=== PATIENT | male | born 1980 | race Caucasian/White ===

== ENCOUNTER → 2016-03-26 | Outpatient (CLI) | payer MEDICARE, MEDICAID ==
[~2016-03-26] MED LIST: /LABE20TA OR; /PANT40TA OR; /RANI15TA PO; ACET500C PO; ACET50TA PO; ACET650T12 PO; ACET65TA OR; AMBI10TA PO; AMBI12.52 PO; AMLO10TA2 PO; AMLO5TAB OR; ARANESP; ASPI1TAB5 PO; ASPI81TA4 PO; ASPI81TA83 OR; AUGM875T27 PO; B6 N1TAB PO; BACT400T PO; BENT20TA OR; CALC0.25 PO; CELL250C PO; CELLCEPT; CEPH2CAP PO; CLON0.3T TD; CLON0.5T PO; CLON3PA TOP; COLA50CA3 PO; D200CAP3 PO; DARB300VL SC; DEMA100T OR; DILA2TAB PO; DILA4TAB PO; DILA8TAB4 PO; DOC-8.6T PO; DOCQ100C PO; DOCU100C PO; DOCU10CA PO; DOCU10ELUD PO; DOXY75CA3 PO; DULO20CA OR; EPOG1000 SQ; ERGO5000 PO; FE T325T PO; FERR220E3 PO; FERR325T3 PO; FERR83TA2 PO; FISH100049 PO; FOLI1TAB OR; FOSR1000 PO; FURO10EL PO; FURO40TA2 PO; GABA-279 PO; GABA300C2 PO; HYDR25T PO; IRON325T3 IV; KEPP250T PO; KEPPRA PO; LABE20TAB PO; LABE300T PO; LASI80TA OR; LOPR50TA OR; MAGN500T2 OR; METALAZONE PO; METH10TA2 PO; METH5TAB2 PO; MIRA3350 PO; MYCO500T PO; Metamucil; NEUR300C OR; NEUR600T PO; NORT10CA2 PO; OXYC1SOL PO; OXYC30TA4 PO; OXYC30TA84 PO; OXYCO5TA PO; PEPT262T2 PO; PERC5TAB8 OR; PRED10TA2 OR; PRED20TA PO; PRED5TA PO; PROG1CAP2 OR; PROT1TAB2 PO; PROTPAK PO; RANI150C OR; RENA800T OR; RENV2.4P PO; RENVELA PO; SENS30TA PO; SEVE80TAB PO; SILD50TA PO; TACR1CAP3 PO; TACR5CAP4 PO; TRAM50TA2 OR; TUMS500C OR; TYLE325T5 PO; VALC450T PO; VANC1INJ IP; VIAG100T PO; VIBR100C PO; VICO5TAB OR; VIT D 2000 PO; VITA100037 PO; VITA200015 PO; VITA500047 PO; VITATAB11 PO; XANA0.5T PO; ZANT150T OR; ZANT150T PO; ZANTTAB PO; ZOFR4TAB3 PO; ZOLP-187 PO; [UNRECOGNIZED DRUG - CODE] EX; [UNRECOGNIZED DRUG - CODE] IP; [UNRECOGNIZED DRUG - CODE] IV; [UNRECOGNIZED DRUG - CODE] OR; [UNRECOGNIZED DRUG - CODE] PO; [UNRECOGNIZED DRUG - OTHER]; ambien PO; tizanidine PO; viagra
--- NOTE | 2016-04-12 01:03 | ECWPNPC ---
PATIENT NAME: LILY DENNIS : 1980 GENDER: MALE VISIT DATE: 03/26/2016 DISCHARGE DATE: 03/26/16 1227 VISIT LOCKED DATE TIME: PHYSICIAN: RICK ODELL PHYSICIAN PAGER NO: [phone] RESOURCE: RICK ODELL HISTORY OF PRESENT ILLNESS HISTORY OF PRESENT ILLNESS: PAIN THE PATIENT DESCRIBES THE PAIN... FALL RISK SCREENING: SCREENING :NO FALLS IN THE PAST YEAR TODAY'S VISIT: NOTES: RATES PAIN TODAY 6/10. NOTES PAIN IS PRESENT IN BOTH LEGS AND IN BACK WITH RADIATION TO BUTTUCKS AND LEGS. SAW RECENT TRANSPLANT TEAM IN [place]. HAS HAD 2 RECENT FALLS. NO INJURIES. FEET GO NUMB EASILY. REPORTS NO TROUBLE WITH MEDS AND THEY ARE WORKING WELL. IS HAVING ISSUES WITH CONSTIPATION. HAS SOME ISSUES WITH INITIATING URINATION. . CURRENT MEDICATIONS TAKING TACROLIMUS 1 MG CAPSULE DIRECTED ORALLY 3 MGS AM AND 3 MGS PM TAKING PROTONIX 40 MG TABLET DELAYED RELEASE 1 TABLET ORALLY ONCE A DAY TAKING MAY HAVE `` `` ` DIAGNOSIS CODE 729.5 LEFT ANKLE PAIN LEFT ANKLE-BAYRON BRACE TAKING LABETALOL HCL 200 MG TABLET 1 TAB ORALLY TWICE A DAY TAKING FISH OIL 1000 MG CAPSULE 2 CAPS ORALLY TWICE DAILY TAKING VITAMIN B-6 100 MG TABLET 1 TABLET ORALLY TWICE DAILY TAKING CHOLECALCIFEROL 2000 UNIT TABLET 1 TABLET ORALLY DAILY TAKING CELLCEPT 500 MG TABLET 2 CAPSULE ORALLY TWICE A DAY TAKING PREDNISONE 5 MG TABLET 1 TABLET DAILY TAKING MIRALAX _ POWDER 1 CAPFUL ORALLY M W F NEEDED TAKING VIAGRA 100 MG TABLET TAKE 1/2 -1 TABLET BY MOUTH NEEDED TAKING FLONASE 50 MCG/ACT SUSPENSION 1 SPRAY IN EACH NOSTRIL NASALLY ONCE A DAY TAKING COLACE 100 MG CAPSULE 2 CAP ORALLY TWICE A DAY TAKING METHADONE HCL 10 MG TABLET 5 TABS ORALLY Q 8 HRS MDD=15 CHRONIC PAIN TAKING XANAX 0.5 MG TABLET 1 TABLET ORALLY TID PRN/MDD # 3 TAKING HYDROMORPHONE HCL 8 MG TABLET 1 TABLET NEEDED ORALLY Q 8 HRS PRN PAIN MDD=3 NOT-TAKING VALIUM 10 MG TABLET 1 ORALLY 1 TAB PRE PROC. MDD1 NOT-TAKING METHADONE HCL 10 MG TABLET 5 TABLETS ORALLY Q 8 HOURS MDD=15 CHRONIC PAIN NOT-TAKING METHADONE HCL 10 MG TABLET 5 TABLET ORALLY Q 8 HRS CHRONIC PAIN MDD=15 NOT-TAKING BACTRIM 400-80 MG TABLET 2 TABLETS ORALLY Saturday MEDICATION LIST REVIEWED AND RECONCILED WITH THE PATIENT PAST MEDICAL HISTORY RENAL TRANSPLANT [place]2004--REJECTED 2011; LIVE DONOR KIDNEY TRANSPLANT [facility] 04/03 HTN--SEVERE ANEMIA OF CHRONIC DISEASE CHRONIC LOW BACK PAIN BORDERLINE B12 DEFICIENCY C DIFF COLITIS--ADMITTED [facility] 04/28 CAMPYLOBACTER ENTERITIS, ADMITTED [facility] 10/30 BILAT PNEUMONIA WITH E COLI BACTEREMIA, ADMITTED [facility] 11/29 ESRD -- DR FERNANDEZ NEUROPATHIC PAIN LEGS---[facility]; NCS NEURO 11/01 SEVERE SENSORY/MOTOR POLYNEUROPATHY ECHO 12/30--EF 65%,LAE 49 MM, MILD AR/MR/PULM HTN ? 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 NEW PATIENT PAIN DIARY TODAY'S VISITNOTES FROM 0-10, WHAT LEVEL IS YOUR PAIN TODAY?0 PAIN CLINIC PFS, CLERGY, PUBLIC HEALTH REFERRALS PFS REFERRAL NEEDED?NO CLERGY REFERRAL NEEDED?NO PUBLIC HEALTH REFERRAL NEEDED?NO WAS THE PROVIDER NOTIFIED OF ANY PERTINENT INFO?NO PFS REFERRAL NEEDED?NO CLERGY REFERRAL NEEDED?NO PUBLIC HEALTH REFERRAL NEEDED?NO WAS THE PROVIDER NOTIFIED OF ANY PERTINENT INFO?NO REVIEW OF SYSTEMS CONSTITUTIONAL: ANY CHANGE IN YOUR MEDICAL CONDITION? NO . CHILLS NO . FEVER NO . INFECTION: DO YOU HAVE NEW INFECTIONS? NO . DO YOU HAVE HISTORY OF MRSA? NO . MUSCULOSKELETAL: ANY NEW PATTERNS OF PAIN OR NUMBNESS? NO . GASTROENTEROLOGY: ANY NEW CHANGE IN BOWEL CONTROL? NO . GENITOURINARY: ANY NEW CHANGE IN BLADDER CONTROL? NO . IS THERE A CHANCE YOU COULD BE ? NO . HEMATOLOGY/LYMPH: DO YOU TAKE ANY BLOOD THINNERS? (FOR EXAMPLE- COUMADIN, PLAVIX, AGGRENOX, PLATEL, PRADAXA, OR XARELTO) NO . WHEN WAS YOUR LAST DOSE? DATE: TIME: . NEUROLOGY: HAVE YOU FALLEN IN THE PAST 6 MONTHS? NO . ANY NEW EXTREMITY NUMBNESS OR WEAKNESS? NO . CARDIOLOGY: DO YOU HAVE A PACEMAKER OR DEFIBRILLATOR? NO . RESPIRATORY: HAVE YOU BEEN SICK IN THE PAST WEEK? NO . FEVER NO . FLU LIKE SYMPTOMS? NO . COUGH NO . INTEGUMENTARY: DO YOU HAVE ANY RASHES OR OPEN SORES? NO . ALLERGIC/IMMUNO: ARE YOU ALLERGIC TO SHELLFISH OR IV DYE? NO . ANY NEW ALLERGIES? NO . PSYCHIATRIC: DO YOU HAVE THOUGHTS OF HURTING YOURSELF OR SOMEONE ELSE? NO . ARE YOU ABUSED, NEGLECTED, OR IN AN UNSAFE ENVIRONMENT? NO . ENDOCRINOLOGY: ARE YOU DIABETIC? NO . OTHER: DO YOU NEED ANY PRESCRIPTIONS? NO . IF YES, PLEASE LIST: ____ . ANY NEW PROBLEMS WITH YOUR MEDICATIONS? NO . WHEN DID YOU LAST EAT? ____ . WHEN DID YOU LAST DRINK? ____ . WHAT DID YOU LAST DRINK? ____ . NAME OF PERSON DRIVING YOU HOME? ____ . DO YOU HAVE ANY OTHER QUESTIONS OR CONCERNS NO . REVIEWED BY: PROVIDER: RICK PADRON . VITAL SIGNS WT 215 LBS, HT 72 IN, BMI 29.16 INDEX, BP 151/86 MM HG, HR 82 /MIN, RR 16 /MIN, TEMP 96.0 F, OXYGEN SAT % 96, NA INITIALS TL 1144. EXAMINATION GENERAL EXAMINATION: PSYCHALERT , ORIENTED X 3 , APPROPRIATE MOOD AND AFFECT . LUNGS:CLEAR TO AUSCULTATION BILATERALLY. HEART:HEART RATE REGULAR. MUSCULOSKELETAL:MUSCLE STRENGTH TESTING 5/5 BILATERAL LOWER EXTREMITIES. MARKED DECREASE IN SENSATION IN LOWER EXTREMITIES TO LEVEL OF MID CALF. GAIT STEPPING IN NATURE. ASSESSMENTS NEUROPATHY INVOLVING BOTH LOWER EXTREMITIES - G57.91 (PRIMARY) CHRONICALLY ON OPIATE THERAPY - Z79.891 TREATMENT NEUROPATHY INVOLVING BOTH LOWER EXTREMITIES CLINICAL NOTES: ISTOP REGISTRY REVIEWED AND DEMNOSTRATES COMPLLIANCE. BRINGS IN MEDICATIONS WHICH IS APPROPRIATE FOR WHAT WAS DISPENSED. RECENT URINE TOXICOLOGY REVIEWED. NO UNAUTHORIZED MEDICATIONS. NO ILLICIT SUBSTANCES AND PRESCRIBED MEDICATIONS WERE PRESENT. LATE NOTE: ARRANGEMENTS WERE MADE FOR LILY TO COME IN THE FOLLOWING DAY TO DO WITH URINE TOXICOLOGY FIRST THING IN THE MORNING. NOT COME IN. OTHERS NOTES: EKG FOR MED MANAGEMNT EVALUTOX IN AM. KEEP MEDS SECURE.CALL WHEN SCRIPTS DUE. PROCEDURE CODES FA211 ESTABILISHED PATIENT [facility] FACILITY CHARGE G5482 PAIN ASSESS POS TOOL F/U PLAN DOC G8427 DOC MEDS VERIFIED W/PT OR RE DISPOSITION & COMMUNICATION FOLLOW UP 2 MONTHS ELECTRONICALLY SIGNED BY CARMEN AGUIRRE ON 04/11/2016 AT 12:54 PM EST DISCLAIMER : THIS IS A VISIT SUMMARY EXTRACTED FROM THE [email or web address] CHART. IT IS NOT A COPY OF THE [email or web address] PROGRESS NOTE. SHANNAN
== END ==
LOC: M PAIN 11:20
PROVIDERS: ATTEND Nurse Practitioner Family
DX: G57.91 Unspecified mononeuropathy of right lower limb (principal); M54.5 Low back pain; G89.29 Other chronic pain; Z79.891 Long term (current) use of opiate analgesic; Z79.899 Other long term (current) drug therapy; K59.00 Constipation, unspecified; R39.11 Hesitancy of micturition; I12.0 Hypertensive chronic kidney disease with stage 5 chronic kidney disease or end stage renal disease; D63.8 Anemia in other chronic diseases classified elsewhere; N18.6 End stage renal disease; Z86.59 Personal history of other mental and behavioral disorders; Z94.0 Kidney transplant status; Z88.1 Allergy status to other antibiotic agents

== ENCOUNTER → 2016-06-13 | Outpatient (CLI) | payer MEDICARE, MEDICAID ==
--- NOTE | 2016-07-03 00:39 | ECWPNPC ---
PATIENT NAME: LILY DENNIS : 1980 GENDER: MALE VISIT DATE: 06/13/2016 DISCHARGE DATE: 06/13/16 1055 VISIT LOCKED DATE TIME: PHYSICIAN: RICK ODELL PHYSICIAN PAGER NO: [phone] RESOURCE: RICK ODELL HISTORY OF PRESENT ILLNESS HISTORY OF PRESENT ILLNESS: PAIN THE PATIENT DESCRIBES THE PAIN... FALL RISK SCREENING: SCREENING :NO FALLS IN THE PAST YEAR TODAY'S VISIT: NOTES: RATES PAIN TODAY 6/10. DESCRIBES PAIN CONSTANT, ACHING, BURNING, SHARP AND STABBING, . IS NOTING NEW AREA OF PAIN IN BACK RIGHT BUTTUCKS, AND INTO RIGHT LEG. NOTES INCREASE IN BURNING INTO LEGS. THIS HAS STARTED ABOUT 1 WEEK AGO. NOTES THAT FEET AND MOSTLY HEALS ARE ON FIRE, PARTICULARLY AT NITE. . DID NOT RETURN FOR URINE REQUESTED AT LAST VISIT.. CURRENT MEDICATIONS TAKING TACROLIMUS 1 MG CAPSULE DIRECTED ORALLY 3 MGS AM AND 3 MGS PM TAKING PROTONIX 40 MG TABLET DELAYED RELEASE 1 TABLET ORALLY ONCE A DAY TAKING MAY HAVE `` `` ` DIAGNOSIS CODE 729.5 LEFT ANKLE PAIN LEFT ANKLE-BAYRON BRACE TAKING LABETALOL HCL 200 MG TABLET 1 TAB ORALLY TWICE A DAY TAKING FISH OIL 1000 MG CAPSULE 2 CAPS ORALLY TWICE DAILY TAKING VITAMIN B-6 100 MG TABLET 1 TABLET ORALLY TWICE DAILY TAKING CHOLECALCIFEROL 2000 UNIT TABLET 1 TABLET ORALLY DAILY TAKING CELLCEPT 500 MG TABLET 2 CAPSULE ORALLY TWICE A DAY TAKING PREDNISONE 5 MG TABLET 1 TABLET DAILY TAKING MIRALAX _ POWDER 1 CAPFUL ORALLY NEEDED TAKING VIAGRA 100 MG TABLET TAKE 1/2 -1 TABLET BY MOUTH NEEDED TAKING FLONASE 50 MCG/ACT SUSPENSION 1 SPRAY IN EACH NOSTRIL NASALLY ONCE A DAY TAKING COLACE 100 MG CAPSULE 2 CAP ORALLY TWICE A DAY TAKING XANAX 0.5 MG TABLET 1 TABLET ORALLY TID PRN/MDD # 3 TAKING METHADONE HCL 10 MG TABLET 5 TABS ORALLY Q 8 HRS MDD=15 CHRONIC PAIN TAKING HYDROMORPHONE HCL 8 MG TABLET 1 TABLET NEEDED ORALLY Q 8 HRS PRN PAIN MDD=3 NOT-TAKING BUSPIRONE HCL 5 MG TABLET 1 TABLET ORALLY THREE TIMES A DAY NEEDED MEDICATION LIST REVIEWED AND RECONCILED WITH THE PATIENT PAST MEDICAL HISTORY RENAL TRANSPLANT [place] 2004--REJECTED 2011; LIVE DONOR KIDNEY TRANSPLANT [facility] 04/03 HTN--SEVERE ANEMIA OF CHRONIC DISEASE CHRONIC LOW BACK PAIN BORDERLINE B12 DEFICIENCY C DIFF COLITIS--ADMITTED [facility] 04/28 CAMPYLOBACTER ENTERITIS, ADMITTED [facility] 10/30 BILAT PNEUMONIA WITH E COLI BACTEREMIA, ADMITTED [facility] 11/29 ESRD -- DR FERNANDEZ NEUROPATHIC PAIN LEGS---[facility]; NCS NEURO 11/01 SEVERE SENSORY/MOTOR POLYNEUROPATHY ECHO 12/30--EF 65%,LAE 49 MM, MILD AR/MR/PULM HTN ? 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 REVIEW OF SYSTEMS CONSTITUTIONAL: ANY CHANGE IN YOUR MEDICAL CONDITION? NO . CHILLS NO . FEVER NO . INFECTION: DO YOU HAVE NEW INFECTIONS? NO . DO YOU HAVE HISTORY OF MRSA? NO . MUSCULOSKELETAL: ANY NEW PATTERNS OF PAIN OR NUMBNESS? YES, NEW PAIN IN RIGHT BACK, INTO BUTTUCKS, AND DOWN INTO UPPER THIGH. FEET ARE WORSE, BURNING. . GASTROENTEROLOGY: ANY NEW CHANGE IN BOWEL CONTROL? NO . GENITOURINARY: ANY NEW CHANGE IN BLADDER CONTROL? NO . IS THERE A CHANCE YOU COULD BE ? NO . HEMATOLOGY/LYMPH: DO YOU TAKE ANY BLOOD THINNERS? (FOR EXAMPLE- COUMADIN, PLAVIX, AGGRENOX, PLATEL, PRADAXA, OR XARELTO) NO . WHEN WAS YOUR LAST DOSE? DATE: TIME: . NEUROLOGY: HAVE YOU FALLEN IN THE PAST 6 MONTHS? YES . ANY NEW EXTREMITY NUMBNESS OR WEAKNESS? NO . CARDIOLOGY: DO YOU HAVE A PACEMAKER OR DEFIBRILLATOR? NO . RESPIRATORY: HAVE YOU BEEN SICK IN THE PAST WEEK? NO . FEVER NO . FLU LIKE SYMPTOMS? NO . COUGH NO . INTEGUMENTARY: DO YOU HAVE ANY RASHES OR OPEN SORES? NO . ALLERGIC/IMMUNO: ARE YOU ALLERGIC TO SHELLFISH OR IV DYE? NO . ANY NEW ALLERGIES? NO . PSYCHIATRIC: DO YOU HAVE THOUGHTS OF HURTING YOURSELF OR SOMEONE ELSE? NO . ARE YOU ABUSED, NEGLECTED, OR IN AN UNSAFE ENVIRONMENT? NO . ENDOCRINOLOGY: ARE YOU DIABETIC? NO . OTHER: DO YOU NEED ANY PRESCRIPTIONS? NO . IF YES, PLEASE LIST: ____ . ANY NEW PROBLEMS WITH YOUR MEDICATIONS? NO . WHEN DID YOU LAST EAT? ____ . WHEN DID YOU LAST DRINK? ____ . WHAT DID YOU LAST DRINK? ____ . NAME OF PERSON DRIVING YOU HOME? ____ . DO YOU HAVE ANY OTHER QUESTIONS OR CONCERNS NO . REVIEWED BY: PROVIDER: RICK PADRON . VITAL SIGNS WT 228.8 LBS, HT 72 IN, BMI 31.03 INDEX, BP 147/85 MM HG, HR 69 /MIN, RR 18 /MIN, TEMP 96.8 F, OXYGEN SAT % 97%, NA INITIALS SC 10:05, REVIEWED BY: CM. EXAMINATION GENERAL EXAMINATION: PSYCHALERT , ORIENTED X 3 , APPROPRIATE MOOD AND AFFECT . LUNGS:CLEAR TO AUSCULTATION BILATERALLY. HEART:HEART RATE REGULAR. MUSCULOSKELETAL:MUSCLE STRENGTH TESTING 5/5 BILATERAL LOWER EXTREMITIES. MARKED DECREASE IN SENSATION IN LOWER EXTREMITIES TO LEVEL OF MID CALF. GAIT STEPPING IN NATURE. POINT TENDERNESS OVER LOW BACK, BUTTUCK. POSITVE MAYELIN SIGN. . 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 PIRIFORMIS STRETCHES. ICE TO LOW BACK AND BUTTUCK AREA. HOMEWORK - PIRIFORMIS SYNDROME. ADD B-COMPLEX VITAMIN DAILY. , #128 - SCREENING BMI AND F/U PLAN IN : BMI ABOVE NORMAL TODAY. DISCUSSED WITH PATIENT NUTRITIONAL FOOD CHOICES TO ASSIST WITH WEIGHT LOSS. RECCOMMENDED REDUCING SALT, SUGAR, SODA INTAKE. RECOMMEND INCREASE ACTIVITY TO INCLUDE WALKING ON A REGULAR BASIS. CURRENTLY FOLLOWS CLOSELY WITH [facility] TRANSPLANT TEAM WHO DOES MONITOR HIS WEIGHT. , FALLS CARE PLAN: 1. RECOMMEND REMOVING ALL THROW RUGS. 2. RECOMMEND NIGHT LIGHTS 3. RECOMMEND WEARING RUBBER SOLED SHOES AND TO NOT GO BAREFOOT. 5. ADVISED TO USE ASSISTIVE DEVICE SUCH CANE WHEN NEEDED. CLINICAL NOTES: ISTOP REGISTRY REVIEWED AND DEMNOSTRATES COMPLLIANCE. BRINGS IN MEDICATIONS WHICH IS APPROPRIATE FOR WHAT WAS DISPENSED. RECENT URINE TOXICOLOGY REVIEWED. NO UNAUTHORIZED MEDICATIONS. NO ILLICIT SUBSTANCES AND PRESCRIBED MEDICATIONS WERE PRESENT. PROCEDURE CODES FA211 ESTABILISHED PATIENT [facility] FACILITY CHARGE G8783 BP SCR PRFRM RCMDD DEFIND SCR INTVL G8730 PAIN ASSESS POS TOOL F/U PLAN DOC 3016F PT SCRND UNHLTHY [place] USE 1124F ACP DISCUSS-NO DSCNMKR DOCD 1036F TOBACCO NON-USER 0518F FALL PLAN OF CARE DOCD G8427 DOC MEDS VERIFIED W/PT OR RE G8417 BMI >=30 CALCUATE W/FOLLOWUP 3288F FALL RISK ASSESSMENT DOCD DISPOSITION & COMMUNICATION FOLLOW UP 7 WEEKS ELECTRONICALLY SIGNED BY CARMEN AGUIRRE ON 07/02/2016 AT 10:06 AM EDT DISCLAIMER : THIS IS A VISIT SUMMARY EXTRACTED FROM THE [employer] CHART. IT IS NOT A COPY OF THE [employer] PROGRESS NOTE. MTDD
== END ==
LOC: M PAIN 09:20
PROVIDERS: ATTEND Nurse Practitioner Family
DX: G57.91 Unspecified mononeuropathy of right lower limb (principal); M54.31 Sciatica, right side; G89.29 Other chronic pain; D63.1 Anemia in chronic kidney disease; N18.5 Chronic kidney disease, stage 5; I12.0 Hypertensive chronic kidney disease with stage 5 chronic kidney disease or end stage renal disease; F06.4 Anxiety disorder due to known physiological condition; E55.9 Vitamin D deficiency, unspecified; Z48.22 Encounter for aftercare following kidney transplant; Z94.0 Kidney transplant status; Z79.891 Long term (current) use of opiate analgesic; Z79.899 Other long term (current) drug therapy; Z88.1 Allergy status to other antibiotic agents

== ENCOUNTER → 2016-08-24 | Outpatient (CLI) | payer MEDICAID, MEDICARE, SELFPAY ==
[~2016-08-24] MED LIST changes: +CLON-412 PO; +CLONI1TA PO; -DILA8TAB4 PO; +DILA8TAB5 PO; -DOCU100C PO; +DOCU100C16 PO; +DOLO10TA PO; +HYDR-3363 PO; -HYDR25T PO
--- NOTE | 2016-08-24 23:33 | ECWPNPC ---
PATIENT NAME: LILY DENNIS : 1980 GENDER: MALE VISIT DATE: 08/24/2016 DISCHARGE DATE: 08/24/16 0000 VISIT LOCKED DATE TIME: PHYSICIAN: RICK ODELL PHYSICIAN PAGER NO: [phone] RESOURCE: RICK ODELL REASON FOR APPOINTMENT 1. MEDS HISTORY OF PRESENT ILLNESS HISTORY OF PRESENT ILLNESS: PAIN THE PATIENT DESCRIBES THE PAIN... FALL RISK SCREENING: SCREENING :NO FALLS IN THE PAST YEAR CURRENT MEDICATIONS TAKING TACROLIMUS 1 MG CAPSULE DIRECTED ORALLY 3 MGS AM AND 3 MGS PM TAKING PROTONIX 40 MG TABLET DELAYED RELEASE 1 TABLET ORALLY ONCE A DAY TAKING MAY HAVE `` `` ` DIAGNOSIS CODE 729.5 LEFT ANKLE PAIN LEFT ANKLE-BAYRON BRACE TAKING LABETALOL HCL 200 MG TABLET 1 TAB ORALLY TWICE A DAY TAKING FISH OIL 1000 MG CAPSULE 2 CAPS ORALLY TWICE DAILY TAKING VITAMIN B-6 100 MG TABLET 1 TABLET ORALLY TWICE DAILY TAKING CHOLECALCIFEROL 2000 UNIT TABLET 1 TABLET ORALLY DAILY TAKING CELLCEPT 500 MG TABLET 2 CAPSULE ORALLY TWICE A DAY TAKING PREDNISONE 5 MG TABLET 1 TABLET DAILY TAKING MIRALAX _ POWDER 1 CAPFUL ORALLY NEEDED TAKING VIAGRA 100 MG TABLET TAKE 1/2 -1 TABLET BY MOUTH NEEDED TAKING FLONASE 50 MCG/ACT SUSPENSION 1 SPRAY IN EACH NOSTRIL NASALLY ONCE A DAY TAKING COLACE 100 MG CAPSULE 2 CAP ORALLY TWICE A DAY TAKING HYDROMORPHONE HCL 8 MG TABLET 1 TABLET NEEDED ORALLY Q 8 HRS PRN PAIN MDD=3 TAKING XANAX 0.5 MG TABLET 1 TABLET ORALLY TID PRN/MDD # 3 TAKING METHADONE HCL 10 MG TABLET 5 TABS ORALLY WEANING - TAKE TOTAL 14 TABS ON 08/22, 13 TABS 08/23, AND DECREASE BY 1 TAB DAILY TAKING GABAPENTIN 300 MG CAPSULE 1 CAPSULE ORALLY BEFORE BEDTIME TAKING CLONIDINE HCL 0.1 MG TABLET 1 TABLET AT BEDTIME ORALLY THREE TIMES DAILY NEEDED FOR WITH DRAL SYMPTOMS NOT-TAKING GABAPENTIN 300 MG CAPSULE 1 CAPSULE ORALLY BEFORE BEDTIME NOT-TAKING BUSPIRONE HCL 5 MG TABLET 1 TABLET ORALLY THREE TIMES A DAY NEEDED MEDICATION LIST REVIEWED AND RECONCILED WITH THE PATIENT PAST MEDICAL HISTORY RENAL [facility] 2004--REJECTED 2011; LIVE DONOR KIDNEY TRANSPLANT [facility] 04/03 HTN--SEVERE ANEMIA OF CHRONIC DISEASE CHRONIC LOW BACK PAIN BORDERLINE B12 DEFICIENCY C DIFF COLITIS--ADMITTED 04/28 CAMPYLOBACTER ENTERITIS, ADMITTED [facility] 10/30 BILAT PNEUMONIA WITH E COLI BACTEREMIA, ADMITTED [facility] 11/29 ESRD -- DR FERNANDEZ NEUROPATHIC PAIN LEGS---[facility]; NCS NEURO 11/01 SEVERE SENSORY/MOTOR POLYNEUROPATHY ECHO 12/30--EF 65%,LAE 49 MM, MILD AR/MR/PULM HTN ? 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 CONSTITUTIONAL: ANY CHANGE IN YOUR MEDICAL CONDITION? NO . CHILLS NO . FEVER NO . INFECTION: DO YOU HAVE NEW INFECTIONS? NO . DO YOU HAVE HISTORY OF MRSA? NO . MUSCULOSKELETAL: ANY NEW PATTERNS OF PAIN OR NUMBNESS? YES, NO FEELING BOTH LEGS PAST 5 WEEKS HAVING PAIN DOWN LEFT LEG AND WAKES SCREAMING FROM THE LEFT LEG LOCKING UP . GASTROENTEROLOGY: ANY NEW CHANGE IN BOWEL CONTROL? NO . GENITOURINARY: ANY NEW CHANGE IN BLADDER CONTROL? NO . IS THERE A CHANCE YOU COULD BE ? NO . HEMATOLOGY/LYMPH: DO YOU TAKE ANY BLOOD THINNERS? (FOR EXAMPLE- COUMADIN, PLAVIX, AGGRENOX, PLATEL, PRADAXA, OR XARELTO) NO . WHEN WAS YOUR LAST DOSE? DATE: TIME: . NEUROLOGY: HAVE YOU FALLEN IN THE PAST 6 MONTHS? YES . ANY NEW EXTREMITY NUMBNESS OR WEAKNESS? NO . CARDIOLOGY: DO YOU HAVE A PACEMAKER OR DEFIBRILLATOR? NO . RESPIRATORY: HAVE YOU BEEN SICK IN THE PAST WEEK? NO . FEVER NO . FLU LIKE SYMPTOMS? NO . COUGH NO . INTEGUMENTARY: DO YOU HAVE ANY RASHES OR OPEN SORES? NO . ALLERGIC/IMMUNO: ARE YOU ALLERGIC TO SHELLFISH OR IV DYE? NO . ANY NEW ALLERGIES? NO . PSYCHIATRIC: DO YOU HAVE THOUGHTS OF HURTING YOURSELF OR SOMEONE ELSE? NO . ARE YOU ABUSED, NEGLECTED, OR IN AN UNSAFE ENVIRONMENT? NO . ENDOCRINOLOGY: ARE YOU DIABETIC? NO . OTHER: DO YOU NEED ANY PRESCRIPTIONS? YES . IF YES, PLEASE LIST: METHADONE, HYDROMORPHINE . ANY NEW PROBLEMS WITH YOUR MEDICATIONS? NO . WHEN DID YOU LAST EAT? ____ . WHEN DID YOU LAST DRINK? ____ . WHAT DID YOU LAST DRINK? ____ . NAME OF PERSON DRIVING YOU HOME? ____ . DO YOU HAVE ANY OTHER QUESTIONS OR CONCERNS NO . VITAL SIGNS WT 232.6 LBS, HT 72 IN, BMI 31.54 INDEX, BP 142/91 MM HG, HR 78 /MIN, RR 18 /MIN, TEMP 98.3 F, OXYGEN SAT % 98%, NA INITIALS SC 12:25, REVIEWED BY: NL. EXAMINATION GENERAL EXAMINATION: GENERAL APPEARANCE:COLOR PALE. PSYCHALERT , ORIENTED X 3 , SAD AND TEARFUL. MUSCULOSKELETAL:EXTREMELY POOR BALANCE. HARD TO RISE TO STANDING POSITION. GAIT WIDEBASED, STEPPING AND WITH NEAR FALL. EXTREMITIES:NO LOWER EXTREMITY EDEMA. NO LOWER EXTREMITY ERYTHEMA. ASSESSMENTS NEUROPATHY INVOLVING BOTH LOWER EXTREMITIES - G57.91 (PRIMARY) TREATMENT NEUROPATHY INVOLVING BOTH LOWER EXTREMITIES STOP HYDROMORPHONE HCL TABLET, 8 MG, 1 TABLET NEEDED, ORALLY, Q 8 HRS PRN PAIN MDD=3 REFILL METHADONE HCL TABLET, 10 MG, 5 TABS, ORALLY, WEANING - TAKE TOTAL 14 TABS ON 08/22, 13 TABS 08/23, AND DECREASE BY 1 TAB DAILY UNTIL GONE., 7 DAYS, 115, REFILLS 0 CLINICAL NOTES: ISTOP REGISTRY REVIEWED AND DOES DEMNOSTRATE COMPLLIANCE. BRINGS IN MEDICATIONS BUT DID NOT TAKE METHADONE PRESCIBED.ED. RECENT URINE TOXICOLOGY OF 06/26/16 REVIEWED. NO UNAUTHORIZED MEDICATIONS. COCAINE WAS NOTED AND PRESCRIBED MEDICATIONS WERE PRESENT. THIS TOX REPORT WAS REVIEWED WITH DR TAYLOR. PER CLINIC POLICY AND MATTHEW REGULATIONS ALL CONTROLLED SUBSTANCES ARE BEING WEANED AND DISCONTINUED. RECOMMENDED LILY SEEK THE WALK IN CLINIC AT [facility] OR [facility] ADDICTION [facility]. I DID DISCUSS THAT WORKING WITH [facility] MAY OFFER THE BEST HELP WITH HIS SELF REPORT OF DEPRESSION. OFFERED OPTION OF NON OPIOIDS FOR MANAGEMENT OF THE NEUROPATHY BUT PATIENT STATES THEY EITHER DO NOT WORK OR HE HAS AN ADVERSE REACTION. OFFERED OPTION OF DORSAL COLUMN STIMULATOR FOR NEUROPATHIC PAIN CONTROL AND THAT HERE WAS NOW DEVICES AVAILABLKE THAT WERE MRI COMPATIBLE BUT PATIENT STATES [employer] TRANSPLANT TEAM HAS FORBIDDEN THIS OPTION. RECOMMENDED THAT HE CONTACT HIS TRANSPLANT TEAM FOR ASSISTANCE. WOULD BE WILLING TO SEE HIM BACK IN THE FUTURE FOR NON OPIOID THERAPY . LILY STATED THAT HE WOULD BE SEEKING A NEW PAIN MANAGEMENT PROVIDER. PROCEDURE CODES FA211 ESTABILISHED PATIENT [facility] FACILITY CHARGE G3056 PAIN ASSESS POS TOOL F/U PLAN DOC G8427 DOC MEDS VERIFIED W/PT OR RE DISPOSITION & COMMUNICATION FOLLOW UP PT MAY CALL TO SCHEDULE (REASON: LOWER EXTREMITY NEUROPATHY) ELECTRONICALLY SIGNED BY CARMEN AGUIRRE ON 08/24/2016 AT 05:39 PM EDT DISCLAIMER : THIS IS A VISIT SUMMARY EXTRACTED FROM THE [employer] CHART. IT IS NOT A COPY OF THE [employer] PROGRESS NOTE. MTDD
== END ==
LOC: M PAIN 11:40
PROVIDERS: ATTEND Nurse Practitioner Family
DX: G57.91 Unspecified mononeuropathy of right lower limb (principal); Z79.891 Long term (current) use of opiate analgesic; Z79.899 Other long term (current) drug therapy; Z88.8 Allergy status to other drugs, medicaments and biological substances; D63.1 Anemia in chronic kidney disease; N18.5 Chronic kidney disease, stage 5; G89.29 Other chronic pain; Z94.0 Kidney transplant status; I12.0 Hypertensive chronic kidney disease with stage 5 chronic kidney disease or end stage renal disease

== ENCOUNTER 2016-09-07 16:17 | Emergency (ER) | payer MEDICAID, MEDICARE ==
[~2016-09-07] VITALS: Ht 182.9 cm; Wt 105.6 kg
[~2016-09-07 16:17] MED LIST changes: -CLON-412 PO; -CLONI1TA PO; -DOLO10TA PO
[2016-09-07 16:18] VITALS: BP 139/83
[2016-09-07] MEDS ORDERED: DILA8TAB5 PO (17:16)
== END 2016-09-07 17:25 | disposition home or self-care (01) ==
LOC: M ED 16:17
DX: Z76.0 Encounter for issue of repeat prescription (principal); M79.605 Pain in left leg; I10 Essential (primary) hypertension; Z97.8 Presence of other specified devices; Z88.8 Allergy status to other drugs, medicaments and biological substances; Z79.899 Other long term (current) drug therapy
CPT/HCPCS: 99281; G0463

== ENCOUNTER 2016-09-11 07:00 | Emergency (ER) | payer MEDICARE ==
[~2016-09-11] VITALS: Ht 182.9 cm; Wt 104.5 kg
[2016-09-11] MEDS ORDERED: LABE20TAB PO (07:22)
[2016-09-11] MEDS ORDERED: CLON-412 PO (07:22)
[2016-09-11] MEDS ORDERED: METHADONE 10 MG TAB (S0109) PO ONE ×2 (08:15→08:30)
[2016-09-11] MEDS ORDERED: HYDROmorphone 2 MG TAB PO ONE (08:15)
[2016-09-11] MEDS ORDERED: DOLO10TA PO (08:18)
[2016-09-11 08:56] VITALS: BP 156/89
[2016-09-12] MEDS ORDERED: CLONI1TA PO (08:33)
== END 2016-09-11 08:58 | disposition home or self-care (01) ==
LOC: M ED 07:00
DX: Z76.0 Encounter for issue of repeat prescription (principal); G89.29 Other chronic pain; Z88.8 Allergy status to other drugs, medicaments and biological substances; Z79.899 Other long term (current) drug therapy
CPT/HCPCS: 99282; G0463

== ENCOUNTER 2016-09-12 07:41 | Emergency (ER) | payer MEDICARE ==
[~2016-09-12] VITALS: Ht 182.9 cm; Wt 104.5 kg
[~2016-09-12 07:41] MED LIST changes: +CLON-412 PO; +DOLO10TA PO
[2016-09-12] MEDS ORDERED: CLONI1TA PO (08:33)
[2016-09-12] MEDS ORDERED: cloNIDine 0.1 MG TAB PO ONE (08:45)
[2016-09-12 08:47] VITALS: BP 137/66
[2016-09-12 08:48] VITALS: BP 137/66
== END 2016-09-12 09:10 | disposition home or self-care (01) ==
LOC: M ED 07:41
DX: G89.29 Other chronic pain (principal); F11.10 Opioid abuse, uncomplicated; G40.909 Epilepsy, unspecified, not intractable, without status epilepticus; N18.9 Chronic kidney disease, unspecified; Z87.442 Personal history of urinary calculi; D64.9 Anemia, unspecified; F41.9 Anxiety disorder, unspecified; Z79.899 Other long term (current) drug therapy; Z88.1 Allergy status to other antibiotic agents; Z88.8 Allergy status to other drugs, medicaments and biological substances; Z91.09 Other allergy status, other than to drugs and biological substances; Z94.0 Kidney transplant status

== ENCOUNTER → 2016-09-18 | Outpatient (CLI) | payer MEDICARE ==
[~2016-09-18] MED LIST changes: +CLONI1TA PO
--- NOTE | 2016-09-21 23:55 | ECWPNPC ---
PATIENT NAME: LILY DENNIS : 1980 GENDER: MALE VISIT DATE: 09/18/2016 DISCHARGE DATE: 09/18/16 1506 VISIT LOCKED DATE TIME: PHYSICIAN: RICK ODELL PHYSICIAN PAGER NO: [phone] RESOURCE: RICK ODELL REASON FOR APPOINTMENT 1. INCREASING PAIN HISTORY OF PRESENT ILLNESS HISTORY OF PRESENT ILLNESS: PAIN THE PATIENT DESCRIBES THE PAIN... FALL RISK SCREENING: SCREENING :NO FALLS IN THE PAST YEAR TODAY'S VISIT: NOTES: WAS INHOSPITAL AT [facility] LAST WEEK. STATES HAD GI ISSUES WITH NAUSEA, VOMITING AND DIARRHEA. STATES A &QUOT;CODE BLUE&QUOT; WAS CALLED ON HIM WHEN HE ENTERED THE HOSPITAL'S LOBBY AND HE WAS RUSHED TO THE ER. STATES HE WAS NOT INTUBATED AND HE WAS SEEN BY A RACK MAKER WHO DOES NOT REGULARLY FOLLOW HIS CARE (HIS TRANSPLANT TEAM AND NPHROLOGIST ARE AT [facility] IN [place]) . LILY STATES HE WAS KEPT ON HIS USUAL OLD DOSE OF METHADONE AT 5 TABS (10 MG) 3 TIMES PER DAY WITH BREAKTHROUGH HYDROMORPHONE. STATES AFTER HIS LAST VISIT HERE HE WAS ABLE TO TAKE HIS USUAL DOSING FOR 3 WEEKS AND THEN RAN OUT. REORTS HE HAS BEEN TRYING TO FIND A NEW PAIN CENTER WHO WILL TAKE OVER HIS MEDS WITHOUT SUCCESS. CONTINUES TO REPORT SIGNIFICANT PAIN . NUMBNESS AND BURNING IN BOTH LOWER EXTREMITIES WITH NEW PAIN IN THE R>L DISTAL FEMUR/THIGH. BRINGS EXTENSIVE NOTES AND PAPERWORK WITH HIM, BUT NOT HIS DISCHARGE PAPERWORK.. CURRENT MEDICATIONS TAKING TACROLIMUS 1 MG CAPSULE DIRECTED ORALLY 3 MGS AM AND 3 MGS PM TAKING PROTONIX 40 MG TABLET DELAYED RELEASE 1 TABLET ORALLY ONCE A DAY TAKING MAY HAVE `` `` ` DIAGNOSIS CODE 729.5 LEFT ANKLE PAIN LEFT ANKLE-BAYRON BRACE TAKING LABETALOL HCL 200 MG TABLET 1 TAB ORALLY TWICE A DAY TAKING FISH OIL 1000 MG CAPSULE 2 CAPS ORALLY TWICE DAILY TAKING CHOLECALCIFEROL 2000 UNIT TABLET 1 TABLET ORALLY DAILY TAKING CELLCEPT 500 MG TABLET 2 CAPSULE ORALLY TWICE A DAY TAKING PREDNISONE 5 MG TABLET 1 TABLET DAILY TAKING MIRALAX _ POWDER 1 CAPFUL ORALLY M W NEEDED TAKING VIAGRA 100 MG TABLET TAKE 1/2 -1 TABLET BY MOUTH NEEDED TAKING FLONASE 50 MCG/ACT SUSPENSION 1 SPRAY IN EACH NOSTRIL NASALLY ONCE A DAY TAKING COLACE 100 MG CAPSULE 2 CAP ORALLY TWICE A DAY TAKING CLONIDINE HCL 0.1 MG TABLET 1 TABLET AT BEDTIME ORALLY THREE TIMES DAILY NEEDED FOR WITH DRAL SYMPTOMS TAKING XANAX 0.5 MG TABLET 1 TABLET ORALLY TID PRN/MDD # 3 TAKING METHADONE HCL 10 MG TABLET 5 TABS ORALLY WEANING - TAKE TOTAL 14 TABS ON 08/22, 13 TABS 08/23, AND DECREASE BY 1 TAB DAILY UNTIL GONE. TAKING HYDROMORPHONE HCL 8 MG TABLET 1 TABLET NEEDED ORALLY EVERY 6 HRS TAKING LIDOCAINE-PRILOCAINE 2.5-2.5 % CREAM EXTERNALLY TAKING BENADRYL ALLERGY 25 MG TABLET 2 TABLET NEEDED ORALLY AT BEDTIME TAKING VITAMIN B COMPLEX - TABLET ORALLY TAKING ZOFRAN 4 MG TABLET 1 TABLETS ORALLY Q 8 HRS PRN NOT-TAKING VITAMIN B-6 100 MG TABLET 1 TABLET ORALLY TWICE DAILY NOT-TAKING GABAPENTIN 300 MG CAPSULE 1 CAPSULE ORALLY BEFORE BEDTIME NOT-TAKING GABAPENTIN 300 MG CAPSULE 1 CAPSULE ORALLY BEFORE BEDTIME NOT-TAKING BUSPIRONE HCL 5 MG TABLET 1 TABLET ORALLY THREE TIMES A DAY NEEDED MEDICATION LIST REVIEWED AND RECONCILED WITH THE PATIENT PAST MEDICAL HISTORY RENAL TRANSPLANT 2004--REJECTED 2011; LIVE DONOR KIDNEY TRANSPLANT [facility] 04/03 HTN--SEVERE ANEMIA OF CHRONIC DISEASE CHRONIC LOW BACK PAIN BORDERLINE B12 DEFICIENCY C DIFF COLITIS--ADMITTED [facility] 04/28 CAMPYLOBACTER ENTERITIS, ADMITTED [facility] 10/30 BILAT PNEUMONIA WITH E COLI BACTEREMIA, ADMITTED [facility] 11/29 ESRD -- DR FERNANDEZ NEUROPATHIC PAIN LEGS---[facility]; NCS NEURO 11/01 SEVERE SENSORY/MOTOR POLYNEUROPATHY, ? FROM TACROLIMUS ECHO 12/30--EF 65%,LAE 49 MM, MILD AR/MR/PULM HTN ? 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 CONSTITUTIONAL: ANY CHANGE IN YOUR MEDICAL CONDITION? YES, PT STATES RACK MAKER TOLD HIM THAT IMMUNOSUPPRESSANTS ARE ALLOWING NEUROPATHY TO ADVANCE. LOOKING AT CHANGING IMMUNOSUPPRESSANT MEDS . CHILLS NO . FEVER NO . INFECTION: DO YOU HAVE NEW INFECTIONS? NO . DO YOU HAVE HISTORY OF MRSA? NO . MUSCULOSKELETAL: ANY NEW PATTERNS OF PAIN OR NUMBNESS? YES, LEFT UPPER THIGH, PT SUSPECTS NEUROPATHY . GASTROENTEROLOGY: ANY NEW CHANGE IN BOWEL CONTROL? NO . GENITOURINARY: ANY NEW CHANGE IN BLADDER CONTROL? NO . IS THERE A CHANCE YOU COULD BE ? NO . HEMATOLOGY/LYMPH: DO YOU TAKE ANY BLOOD THINNERS? (FOR EXAMPLE- COUMADIN, PLAVIX, AGGRENOX, PLATEL, PRADAXA, OR XARELTO) NO . WHEN WAS YOUR LAST DOSE? DATE: TIME: . NEUROLOGY: HAVE YOU FALLEN IN THE PAST 6 MONTHS? YES, PT STATES HE FALLS BECAUSE HE CAN'T FEEL HIS FEET. PT DENIES INJURIES REQUIRING MEDICAL ATTENTION&NBSP;. ANY NEW EXTREMITY NUMBNESS OR WEAKNESS? &NBSP;&NBSP; NO&NBSP;. CARDIOLOGY: DO YOU HAVE A PACEMAKER OR DEFIBRILLATOR? NO . RESPIRATORY: HAVE YOU BEEN SICK IN THE PAST WEEK? NO . FEVER NO . FLU LIKE SYMPTOMS? NO . COUGH NO . INTEGUMENTARY: DO YOU HAVE ANY RASHES OR OPEN SORES? NO . ALLERGIC/IMMUNO: ARE YOU ALLERGIC TO SHELLFISH OR IV DYE? NO . ANY NEW ALLERGIES? NO . PSYCHIATRIC: DO YOU HAVE THOUGHTS OF HURTING YOURSELF OR SOMEONE ELSE? NO . ARE YOU ABUSED, NEGLECTED, OR IN AN UNSAFE ENVIRONMENT? NO . ENDOCRINOLOGY: ARE YOU DIABETIC? NO . OTHER: DO YOU NEED ANY PRESCRIPTIONS? YES, HYDROMORPHONE. METHADONE . IF YES, PLEASE LIST: ____ . ANY NEW PROBLEMS WITH YOUR MEDICATIONS? NO . WHEN DID YOU LAST EAT? ____ . WHEN DID YOU LAST DRINK? ____ . WHAT DID YOU LAST DRINK? ____ . NAME OF PERSON DRIVING YOU HOME? ____ . DO YOU HAVE ANY OTHER QUESTIONS OR CONCERNS NO . VITAL SIGNS WT 230 LBS, HT 72 IN, BMI 31.19 INDEX, BP 156/89 MM HG, HR 82 /MIN, RR 18 /MIN, TEMP 97.8 F, OXYGEN SAT % 98, SAFE IN ENV? (Y/N) Y, NA INITIALS AW 1202, REVIEWED BY: EM. EXAMINATION GENERAL EXAMINATION: GENERAL APPEARANCE:COLOR PINK. SKIN WARM AND DRY. PSYCHALERT , ORIENTED X 3 TALKATIVE AND INTERMITTANTLY TEARFUL. MUSCULOSKELETAL:EXTREMELY POOR BALANCE. HARD TO RISE TO STANDING POSITION. GAIT WIDEBASED, STEPPING AND WITH NEAR FALL. EXTREMITIES:NO LOWER EXTREMITY EDEMA. NO LOWER EXTREMITY ERYTHEMA. 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 OK TO USE LIDOCAINE CREAM. CONSIDER MEDICAL MARIJUANA PROGRAM. CLINICAL NOTES: LENGTHY DISCUSSION HELD WITH DR TAYLOR REGARDING CONTINUED TREATMENT PLAN. WILL OBTAIN THE NAME OF THE RACK MAKER IN [place] ([facility]) WHO TOLD LILY THAT THERE CAN BE A "FALSE POSITIVE" OF COCAINE WITH TACRIS. WILL CONFER WITH A CONFERENCE CALL BETWEEN THIS PROVIDER AND [facility] TO VALDATE THIS INFORMATION. IF THIS IS NOT THE CASE WILL WORK WITH HIS TRANSPLANT TEAM REGARDING A NEW AND RECOMMENDED BY THEM PLAN TO WEAN AND DISCONTINUE THE OPIATES. THIS WAS COMMUNICATED BY BOTH DR TAYLOR AND MYSELF TO LILY AND HIS SIGNIFICANT OTHER. FOR TODAY, UNTIL THE ISSUES ARE CLARIFIED, WILL WRITE FOR A 1 WEEK SUPPLY OF METHADONE AND HYDROMORPHONE. DID ALSO GIVE HIM THE INFORMATION WE HAVE REGARDING MEDICAL MARIJUANA. PT STATES THAT IN THE TIME AFTER HE RAN OUT OF HIS MEDS HE DID USE MARIJUANA FOR PAIN CONTROL AND THIS IS EXPECTED TO BE POSITIVE ON THE TOX SCREEN. PROCEDURE CODES FA211 ESTABILISHED PATIENT [facility] FACILITY CHARGE G8730 PAIN ASSESS POS TOOL F/U PLAN DOC G8427 DOC MEDS VERIFIED W/PT OR RE DISPOSITION & COMMUNICATION FOLLOW UP 1 WEEK (REASON: MED MANAGEMENT) ELECTRONICALLY SIGNED BY CARMEN AGUIRRE ON 09/21/2016 AT 08:48 AM EDT ADDENDUM: 09/21/2016 08:51 AM RICK ODELL > PHONE CALL PLACED TO PATIENT REGARDING THE RACK MAKER WHO TREATED HIM WHILE HE WAS INPATIENT AT [facility] LAST WEEK, AND WHO TOLD HIM HE COULD HAVE A FALSE POSITIVE OFR COCAINE. HE REPORTS THAT THIS WAS DR VAUGHN WHITEHEAD - DEPT OF NEPHROLOGY/TRANPLANT. I DID CONTACT HIS OFFICE AT [phone] AND AM AWAITING A CALL BACK TO DISCUSS THIS. DISCLAIMER : THIS IS A VISIT SUMMARY EXTRACTED FROM THE [employer] CHART. IT IS NOT A COPY OF THE [employer] PROGRESS NOTE. MTDD
== END ==
LOC: M PAIN 11:00
PROVIDERS: ATTEND Nurse Practitioner Family
DX: G57.91 Unspecified mononeuropathy of right lower limb (principal); G89.29 Other chronic pain; Z79.899 Other long term (current) drug therapy; Z79.891 Long term (current) use of opiate analgesic; Z88.8 Allergy status to other drugs, medicaments and biological substances; D63.1 Anemia in chronic kidney disease; N18.5 Chronic kidney disease, stage 5; I12.0 Hypertensive chronic kidney disease with stage 5 chronic kidney disease or end stage renal disease; F06.4 Anxiety disorder due to known physiological condition; E55.9 Vitamin D deficiency, unspecified; K21.9 Gastro-esophageal reflux disease without esophagitis; Z94.0 Kidney transplant status

== ENCOUNTER → 2016-09-25 | Outpatient (CLI) | payer MEDICARE ==
--- NOTE | 2016-10-13 23:23 | ECWPNPC ---
PATIENT NAME: LILY DENNIS : 1980 GENDER: MALE VISIT DATE: 09/25/2016 DISCHARGE DATE: 09/25/16 1137 VISIT LOCKED DATE TIME: PHYSICIAN: RICK ODELL PHYSICIAN PAGER NO: [phone] RESOURCE: RICK ODELL REASON FOR APPOINTMENT 1. MED MANAGEMENT HISTORY OF PRESENT ILLNESS HISTORY OF PRESENT ILLNESS: PAIN THE PATIENT DESCRIBES THE PAIN... FALL RISK SCREENING: SCREENING :NO FALLS IN THE PAST YEAR TODAY'S VISIT: NOTES: RATES PAIN TODAY 08/27. DESCRIBES PAIN CONSTANT, SHARP, STABBING, BURNING NUMB, TINGLING AND PRICKLING. WAS REALLY ACTIVE OVER LAST FEW DAYS. LEGS REALLY PAINFUL. HAD FALL LAST WEEK. WAS TAKEN OFF CELLCEPT ( DUE TO DIARRHEA) AND STARTED ON MYCOPHENOLIC ACID 180 MG. WILL BE SEEING CARMELO MENJIVAR IN [place] ON 09/27/16. . CURRENT MEDICATIONS TAKING TACROLIMUS 1 MG CAPSULE DIRECTED ORALLY 3 MGS AM AND 3 MGS PM TAKING PROTONIX 40 MG TABLET DELAYED RELEASE 1 TABLET ORALLY ONCE A DAY TAKING MAY HAVE `` `` ` DIAGNOSIS CODE 729.5 LEFT ANKLE PAIN LEFT ANKLE-BAYRON BRACE TAKING LABETALOL HCL 200 MG TABLET 1 TAB ORALLY TWICE A DAY TAKING FISH OIL 1000 MG CAPSULE 2 CAPS ORALLY TWICE DAILY TAKING CHOLECALCIFEROL 2000 UNIT TABLET 1 TABLET ORALLY DAILY TAKING PREDNISONE 5 MG TABLET 1 TABLET DAILY TAKING MIRALAX _ POWDER 1 CAPFUL ORALLY M W NEEDED TAKING VIAGRA 100 MG TABLET TAKE 1/2 -1 TABLET BY MOUTH NEEDED TAKING FLONASE 50 MCG/ACT SUSPENSION 1 SPRAY IN EACH NOSTRIL NASALLY ONCE A DAY TAKING COLACE 100 MG CAPSULE 2 CAP ORALLY TWICE A DAY TAKING CLONIDINE HCL 0.1 MG TABLET 1 TABLET AT BEDTIME ORALLY THREE TIMES DAILY NEEDED FOR WITH DRAL SYMPTOMS TAKING LIDOCAINE-PRILOCAINE 2.5-2.5 % CREAM EXTERNALLY TAKING BENADRYL ALLERGY 25 MG TABLET 2 TABLET NEEDED ORALLY AT BEDTIME TAKING VITAMIN B COMPLEX - TABLET ORALLY TAKING ZOFRAN 4 MG TABLET 1 TABLETS ORALLY Q 8 HRS PRN TAKING METHADONE HCL 10 MG TABLET 5 TABS ORALLY TAKE 5 TABS 3 X PER DAY MDD=15 TAKING HYDROMORPHONE HCL 8 MG TABLET 1 TABLET NEEDED ORALLY EVERY 8 HRS PRN PAIN MDD=3 TAKING XANAX 0.5 MG TABLET 1 TABLET ORALLY TID PRN/MDD # 3 TAKING MYCOPHENOLIC ACID 180MG 1 CAP PO FOUR TIMES DAILY NOT-TAKING CELLCEPT 500 MG TABLET 2 CAPSULE ORALLY TWICE A DAY NOT-TAKING VITAMIN B-6 100 MG TABLET 1 TABLET ORALLY TWICE DAILY NOT-TAKING GABAPENTIN 300 MG CAPSULE 1 CAPSULE ORALLY BEFORE BEDTIME NOT-TAKING GABAPENTIN 300 MG CAPSULE 1 CAPSULE ORALLY BEFORE BEDTIME NOT-TAKING BUSPIRONE HCL 5 MG TABLET 1 TABLET ORALLY THREE TIMES A DAY NEEDED MEDICATION LIST REVIEWED AND RECONCILED WITH THE PATIENT PAST MEDICAL HISTORY RENAL TRANSPLANT [place] 2004--REJECTED 2011; LIVE DONOR KIDNEY TRANSPLANT [facility] 04/03 HTN--SEVERE ANEMIA OF CHRONIC DISEASE CHRONIC LOW BACK PAIN BORDERLINE B12 DEFICIENCY C DIFF COLITIS--ADMITTED [facility] 04/28 CAMPYLOBACTER ENTERITIS, ADMITTED [facility] 10/30 BILAT PNEUMONIA WITH E COLI BACTEREMIA, ADMITTED [facility] 11/29 ESRD -- DR FERNANDEZ NEUROPATHIC PAIN LEGS---[facility]; [facility] NEURO 11/01 SEVERE SENSORY/MOTOR POLYNEUROPATHY, ? FROM TACROLIMUS ECHO 12/30--EF 65%,LAE 49 MM, MILD AR/MR/PULM HTN ? 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 CONSTITUTIONAL: ANY CHANGE IN YOUR MEDICAL CONDITION? YES SOME MEDICAL CHANGES WITH MEDICATIONS FROM TRANSPLANT . CHILLS NO . FEVER NO . INFECTION: DO YOU HAVE NEW INFECTIONS? NO . DO YOU HAVE HISTORY OF MRSA? NO . MUSCULOSKELETAL: ANY NEW PATTERNS OF PAIN OR NUMBNESS? YES UP MORE TOWARDS HIPS . GASTROENTEROLOGY: ANY NEW CHANGE IN BOWEL CONTROL? NO . GENITOURINARY: ANY NEW CHANGE IN BLADDER CONTROL? NO . IS THERE A CHANCE YOU COULD BE ? NO . HEMATOLOGY/LYMPH: DO YOU TAKE ANY BLOOD THINNERS? (FOR EXAMPLE- COUMADIN, PLAVIX, AGGRENOX, PLATEL, PRADAXA, OR XARELTO) NO . WHEN WAS YOUR LAST DOSE? DATE: TIME: . NEUROLOGY: HAVE YOU FALLEN IN THE PAST 6 MONTHS? YES SATURDAY FELL IN GARAGE, NO INJURY &QUOT;TURNED AND LEG GAVE OUT&QUOT; . ANY NEW EXTREMITY NUMBNESS OR WEAKNESS? NO . CARDIOLOGY: DO YOU HAVE A PACEMAKER OR DEFIBRILLATOR? NO . RESPIRATORY: HAVE YOU BEEN SICK IN THE PAST WEEK? NO . FEVER NO . FLU LIKE SYMPTOMS? NO . COUGH NO . INTEGUMENTARY: DO YOU HAVE ANY RASHES OR OPEN SORES? NO . ALLERGIC/IMMUNO: ARE YOU ALLERGIC TO SHELLFISH OR IV DYE? NO . ANY NEW ALLERGIES? NO . PSYCHIATRIC: DO YOU HAVE THOUGHTS OF HURTING YOURSELF OR SOMEONE ELSE? NO . ARE YOU ABUSED, NEGLECTED, OR IN AN UNSAFE ENVIRONMENT? NO . ENDOCRINOLOGY: ARE YOU DIABETIC? NO . OTHER: DO YOU NEED ANY PRESCRIPTIONS? YES . IF YES, PLEASE LIST: ____ . ANY NEW PROBLEMS WITH YOUR MEDICATIONS? NO . WHEN DID YOU LAST EAT? ____ . WHEN DID YOU LAST DRINK? ____ . WHAT DID YOU LAST DRINK? ____ . NAME OF PERSON DRIVING YOU HOME? ____ . DO YOU HAVE ANY OTHER QUESTIONS OR CONCERNS NO . VITAL SIGNS WT 230 LBS, HT 72 IN, BMI 31.19 INDEX, BP 149/92 MM HG, HR 80 /MIN, RR 18 /MIN, TEMP 97.9 F, OXYGEN SAT % 97, NA INITIALS AW 1052, REVIEWED BY: KG. EXAMINATION GENERAL EXAMINATION: GENERAL APPEARANCE:COLOR PINK. SKIN WARM AND DRY. ACCOMPANIED BY SIGNIFICANT OTHER , MARIANNA. PSYCHALERT , ORIENTED X 3 TALKATIVE AND INTERMITTANTLY TEARFUL. MUSCULOSKELETAL:EXTREMELY POOR BALANCE. HARD TO RISE TO STANDING POSITION. GAIT WIDEBASED, STEPPING AND WITH NEAR FALL. EXTREMITIES:NO LOWER EXTREMITY EDEMA. NO LOWER EXTREMITY ERYTHEMA. 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 HAVE DR MENJIVAR (VETERINARY SURGEON) CALL DR TAYLOR [phone]. CLINICAL NOTES: ISTOP REGISTRY REVIEWED . PROCEDURE CODES FA211 ESTABILISHED PATIENT [facility] FACILITY CHARGE G4630 PAIN ASSESS POS TOOL F/U PLAN DOC G8427 DOC MEDS VERIFIED W/PT OR RE DISPOSITION & COMMUNICATION FOLLOW UP SCHEDULE WITH DR TAYLOR FOR SATURDAY (REASON: MED MANAGEMENT) ELECTRONICALLY SIGNED BY CARMEN AGUIRRE ON 10/13/2016 AT 04:01 PM EDT DISCLAIMER : THIS IS A VISIT SUMMARY EXTRACTED FROM THE [employer] CHART. IT IS NOT A COPY OF THE [employer] PROGRESS NOTE. MTDD
== END ==
LOC: M PAIN 10:30
PROVIDERS: ATTEND Nurse Practitioner Family
DX: G57.91 Unspecified mononeuropathy of right lower limb (principal); G89.29 Other chronic pain; Z79.899 Other long term (current) drug therapy; Z79.891 Long term (current) use of opiate analgesic; Z88.8 Allergy status to other drugs, medicaments and biological substances; Z88.1 Allergy status to other antibiotic agents; Z48.22 Encounter for aftercare following kidney transplant

== ENCOUNTER → 2016-09-26 | Outpatient (REF) | payer MEDICARE ==
[2016-09-26 16:50] LABS: BASO % 0.3 % (0.0-1.0); EOS # 0.2 K/mm3 (0.0-0.50); EOS % 2.2 % (0.0-3.0); LARGE UNSTAINED CELL # 0.1 K/mm3 (0.0-0.4); LARGE UNSTAINED CELL % 1.6 % (0.0-4.0); LYMPH # 1.3 K/mm3 (1.5-4.5); LYMPH % 15.3 % (24.0-44.0); MEAN CORPUSCULAR HEMOGLOBIN 29.4 pg (27.0-33.0); MEAN CORPUSCULAR HGB CONC 33.1 g/dl (32.0-36.5); MEAN CORPUSCULAR VOLUME 88.6 fl (80.0-96.0); MONO # 0.5 K/mm3 (0.0-0.8); MONO % 6.3 % (0.0-5.0); NEUTROPHILS # 5.8 K/mm3 (1.8-7.7); NEUTROPHILS % 74.2 % (36.0-66.0); PLATELET COUNT, AUTOMATED 221 k/mm3 (150-450); RED CELL DISTRIBUTION WIDTH 12.4 % (11.5-14.5); WHITE BLOOD COUNT 7.9 K/mm3 (4.0-10.0)
[2016-09-26 17:07] LABS: ALBUMIN 3.7 GM/DL (3.2-5.2); ALBUMIN/GLOBULIN RATIO 1.16 (1.00-1.93); ALKALINE PHOSPHATASE 115 U/L (45-117); ALT/SGPT 18 U/L (12-78); ANION GAP 7 MEQ/L (8-16); AST/SGOT 15 U/L (15-37); BILIRUBIN,DIRECT < 0.1 MG/DL (0.0-0.2); BILIRUBIN,TOTAL 0.3 MG/DL (0.2-1.0); BLOOD UREA NITROGEN 20 MG/DL (7-18); CALCIUM LEVEL 8.8 MG/DL (8.5-10.1); CARBON DIOXIDE LEVEL 26 MEQ/L (21-32); CHLORIDE LEVEL 109 MEQ/L (98-107); CHOLESTEROL LEVEL 159 MG/DL (<200); CREATININE FOR GFR 1.61 MG/DL (0.70-1.30); GLUCOSE, FASTING 103 MG/DL (70-105); MAGNESIUM LEVEL 2.2 MG/DL (1.8-2.4); PHOSPHORUS LEVEL 2.2 MG/DL (2.5-4.9); POTASSIUM SERUM 4.5 MEQ/L (3.5-5.1); SODIUM LEVEL 142 MEQ/L (136-145); TOTAL PROTEIN 6.9 GM/DL (6.4-8.2); TRIGLYCERIDES LEVEL 96 MG/DL (<150)
== END ==
LOC: M LABDRAWP 16:09
PROVIDERS: ATTEND Pharmacist
DX: N18.3 Chronic kidney disease, stage 3 (moderate) (principal); E21.3 Hyperparathyroidism, unspecified; E78.00 Pure hypercholesterolemia, unspecified; E78.5 Hyperlipidemia, unspecified; E21.5 Disorder of parathyroid gland, unspecified; N39.0 Urinary tract infection, site not specified; E55.9 Vitamin D deficiency, unspecified; Z79.899 Other long term (current) drug therapy; Z94.0 Kidney transplant status

== ENCOUNTER → 2016-09-28 | Outpatient (CLI) | payer MEDICARE ==
--- NOTE | 2016-10-16 00:21 | ECWPNPC ---
PATIENT NAME: LILY DENINS : 1980 GENDER: MALE VISIT DATE: 09/28/2016 DISCHARGE DATE: 09/28/16 1232 VISIT LOCKED DATE TIME: PHYSICIAN: DILSHAD TAYLOR PHYSICIAN PAGER NO: [phone] RESOURCE: DILSHAD TAYLOR REASON FOR APPOINTMENT 1. LEG PAIN HISTORY OF PRESENT ILLNESS HISTORY OF PRESENT ILLNESS: PAIN THE PATIENT DESCRIBES THE PAIN... 36 YEAR OLD MALE PATIENT WITH HISTORY OF CHRONIC LEG PAIN. PATIENT DESCRIBES THE PAIN ACHING, BURNING, SHARP, STABBING, TENDER, THROBBING, SORE, SHOOTING, AND HAVING IT ALL THE TIME WITH A PAIN SCORE OF 7/10. PATIENT IS USING METHADONE, HYDROMORPHONE, AND LIDOCAINE FOR THE PAIN. PATIENT REPORTS THAT ANY ACTIVITY INCLUDING STAND, WALKING, AND SITTING INCREASES THE PAIN. PATIENT DENIES UNEXPLAINABLE WEIGHT LOSS, FEVER, CHILLS, NEW CHANGES ON HIS URINARY OR BOWEL CONTROL. FALL RISK SCREENING: SCREENING :NO FALLS IN THE PAST YEAR CURRENT MEDICATIONS TAKING TACROLIMUS 1 MG CAPSULE DIRECTED ORALLY 3 MGS AM AND 3 MGS PM TAKING PROTONIX 40 MG TABLET DELAYED RELEASE 1 TABLET ORALLY ONCE A DAY TAKING MAY HAVE `` `` ` DIAGNOSIS CODE 729.5 LEFT ANKLE PAIN LEFT ANKLE-BAYRON BRACE TAKING LABETALOL HCL 200 MG TABLET 1 TAB ORALLY TWICE A DAY TAKING FISH OIL 1000 MG CAPSULE 2 CAPS ORALLY TWICE DAILY TAKING CHOLECALCIFEROL 2000 UNIT TABLET 1 TABLET ORALLY DAILY TAKING PREDNISONE 5 MG TABLET 1 TABLET DAILY TAKING MIRALAX _ POWDER 1 CAPFUL ORALLY W NEEDED TAKING VIAGRA 100 MG TABLET TAKE 1/2 -1 TABLET BY MOUTH NEEDED TAKING FLONASE 50 MCG/ACT SUSPENSION 1 SPRAY IN EACH NOSTRIL NASALLY ONCE A DAY TAKING COLACE 100 MG CAPSULE 2 CAP ORALLY TWICE A DAY TAKING CLONIDINE HCL 0.1 MG TABLET 1 TABLET AT BEDTIME ORALLY THREE TIMES DAILY NEEDED FOR WITH DRAL SYMPTOMS TAKING LIDOCAINE-PRILOCAINE 2.5-2.5 % CREAM EXTERNALLY TAKING BENADRYL ALLERGY 25 MG TABLET 2 TABLET NEEDED ORALLY AT BEDTIME TAKING VITAMIN B COMPLEX - TABLET ORALLY TAKING ZOFRAN 4 MG TABLET 1 TABLETS ORALLY Q 8 HRS PRN TAKING XANAX 0.5 MG TABLET 1 TABLET ORALLY TID PRN/MDD # 3 TAKING MYCOPHENOLIC ACID 180MG 2 CAP PO TWICE DAILY TAKING METHADONE HCL 10 MG TABLET 5 TABS ORALLY TAKE 5 TABS 3 X PER DAY MDD=15 TAKING HYDROMORPHONE HCL 8 MG TABLET 1 TABLET NEEDED ORALLY EVERY 8 HRS PRN PAIN MDD=3 TAKING EVEROLIMUS 0.5 MG TABLET 3 TABLETS ORALLY BID TAKING ASPIRIN ADULT LOW DOSE 81 MG TABLET DELAYED RELEASE 1 TABLET ORALLY ONCE A DAY NOT-TAKING CELLCEPT 500 MG TABLET 2 CAPSULE ORALLY TWICE A DAY NOT-TAKING VITAMIN B-6 100 MG TABLET 1 TABLET ORALLY TWICE DAILY NOT-TAKING GABAPENTIN 300 MG CAPSULE 1 CAPSULE ORALLY BEFORE BEDTIME NOT-TAKING GABAPENTIN 300 MG CAPSULE 1 CAPSULE ORALLY BEFORE BEDTIME NOT-TAKING BUSPIRONE HCL 5 MG TABLET 1 TABLET ORALLY THREE TIMES A DAY NEEDED MEDICATION LIST REVIEWED AND RECONCILED WITH THE PATIENT PAST MEDICAL HISTORY RENAL TRANSPLANT [facility] 2004--REJECTED 2011; LIVE DONOR KIDNEY TRANSPLANT [facility] 04/03 HTN--SEVERE ANEMIA OF CHRONIC DISEASE CHRONIC LOW BACK PAIN BORDERLINE B12 DEFICIENCY C DIFF COLITIS--ADMITTED [facility] 04/28 CAMPYLOBACTER ENTERITIS, [facility]30 BILAT PNEUMONIA WITH E COLI BACTEREMIA, ADMITTED [facility] 11/29 ESRD -- DR FERNANDEZ NEUROPATHIC PAIN LEGS---[facility]; NCS NEURO 11/01 SEVERE SENSORY/MOTOR POLYNEUROPATHY, ? FROM TACROLIMUS ECHO 12/30--EF 65%,LAE 49 MM, MILD AR/MR/PULM HTN ? 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 CONSTITUTIONAL: ANY CHANGE IN YOUR MEDICAL CONDITION? YES PT HOSPITALIZED FOR VOMITING/DIARRHEA THE WEEK OF 09/16 . CHILLS NO . FEVER NO . INFECTION: DO YOU HAVE NEW INFECTIONS? NO . DO YOU HAVE HISTORY OF MRSA? NO . MUSCULOSKELETAL: ANY NEW PATTERNS OF PAIN OR NUMBNESS? YES PT REPORTS INCREASED PAIN, AND PAIN IS EXTENDING TO UPPER LEGS. . GASTROENTEROLOGY: ANY NEW CHANGE IN BOWEL CONTROL? NO . GENITOURINARY: ANY NEW CHANGE IN BLADDER CONTROL? NO . IS THERE A CHANCE YOU COULD BE ? NO . HEMATOLOGY/LYMPH: DO YOU TAKE ANY BLOOD THINNERS? (FOR EXAMPLE- COUMADIN, PLAVIX, AGGRENOX, PLATEL, PRADAXA, OR XARELTO) NO . WHEN WAS YOUR LAST DOSE? DATE: TIME: . NEUROLOGY: HAVE YOU FALLEN IN THE PAST 6 MONTHS? NO . ANY NEW EXTREMITY NUMBNESS OR WEAKNESS? NO . CARDIOLOGY: DO YOU HAVE A PACEMAKER OR DEFIBRILLATOR? NO . RESPIRATORY: HAVE YOU BEEN SICK IN THE PAST WEEK? NO . FEVER NO . FLU LIKE SYMPTOMS? NO . COUGH NO . INTEGUMENTARY: DO YOU HAVE ANY RASHES OR OPEN SORES? NO . ALLERGIC/IMMUNO: ARE YOU ALLERGIC TO SHELLFISH OR IV DYE? NO . ANY NEW ALLERGIES? NO . PSYCHIATRIC: DO YOU HAVE THOUGHTS OF HURTING YOURSELF OR SOMEONE ELSE? NO . ARE YOU ABUSED, NEGLECTED, OR IN AN UNSAFE ENVIRONMENT? NO . ENDOCRINOLOGY: ARE YOU DIABETIC? NO . OTHER: DO YOU NEED ANY PRESCRIPTIONS? NO . IF YES, PLEASE LIST: ____ . ANY NEW PROBLEMS WITH YOUR MEDICATIONS? NO . WHEN DID YOU LAST EAT? ____ . WHEN DID YOU LAST DRINK? ____ . WHAT DID YOU LAST DRINK? ____ . NAME OF PERSON DRIVING YOU HOME? ____ . DO YOU HAVE ANY OTHER QUESTIONS OR CONCERNS NO . VITAL SIGNS WT 240 LBS, HT 72 IN, BMI 32.55 INDEX, BP 140/87 MM HG, HR 91 /MIN, RR 18 /MIN, TEMP 97.7 F, OXYGEN SAT % 98%, SAFE IN ENV? (Y/N) YES, NA INITIALS SC 10:11, REVIEWED BY: GENE. EXAMINATION : PATIENT IS ALERT O X 3 AND COOPERATIVE. ASSESSMENTS OTHER CHRONIC PAIN - G89.29 (PRIMARY) PERIPHERAL NEUROPATHY. TREATMENT OTHER CHRONIC PAIN REFILL METHADONE HCL TABLET, 10 MG, 5 TABS, ORALLY, TAKE 5 TABS 3 X PER DAY MDD=15, 7 DAYS, 105, REFILLS 0 REFILL HYDROMORPHONE HCL TABLET, 8 MG, 1 TABLET NEEDED, ORALLY, EVERY 8 HRS PRN PAIN MDD=3, 7 DAYS, 21, REFILLS 0 NOTES: WE DISCUSSED SEVERAL ISSUES WITH MR. DENNIS'S PAIN MANAGEMENT CASE. AT THIS TIME PATIENT WILL CONTINUE WITH THE SAME MEDICATION REGIME BEFORE. PATIENT IS USING THE METHADONE, HYDROMORPHONE AND THE LIDOCAINE FOR THE SOMATIC PAIN. WE DISCUSSED SEVERAL ISSUES ASSOCIATED WITH HIS USE OF MEDICATIONS AND COMPLIANCE WITH OUR AGREEMENTS. PATIENT WILL FOLLOW UP IN ONE WEEK. HE RECEIVED TODAY A WEEK SUPPLY OF HIS MEDICATIONS. INSTRUCTIONS WERE GIVEN, QUESTIONS WERE ANSWERED, PATIENT REPORTS UNDERSTANDING AND AGREES WITH THE PLAN. I, WILVER KITCHEN, DOCUMENTED THE ABOVE INFORMATION ACTING A SCRIBE FOR DR. TAYLOR. I HAVE REVIEWED THE ABOVE DOCUMENT, WRITTEN BY WILVER VALLEJO AND I VERIFY THAT IT IS ACCURATE. PROCEDURE CODES FA211 ESTABILISHED PATIENT [facility] FACILITY CHARGE G8427 DOC MEDS VERIFIED W/PT OR RE G8730 PAIN ASSESS POS TOOL F/U PLAN DOC DISPOSITION & COMMUNICATION FOLLOW UP 1 WEEK ELECTRONICALLY SIGNED BY DILSHAD TAYLOR MD ON 10/15/2016 AT 06:40 PM EDT DISCLAIMER : THIS IS A VISIT SUMMARY EXTRACTED FROM THE [employer] CHART. IT IS NOT A COPY OF THE [employer] PROGRESS NOTE. SHANNAN
== END ==
LOC: M PAIN 09:45
PROVIDERS: ATTEND Anesthesiology
DX: M79.606 Pain in leg, unspecified (principal); G89.29 Other chronic pain; Z79.891 Long term (current) use of opiate analgesic; Z79.899 Other long term (current) drug therapy; Z79.82 Long term (current) use of aspirin; Z88.8 Allergy status to other drugs, medicaments and biological substances; D63.1 Anemia in chronic kidney disease; N18.5 Chronic kidney disease, stage 5; I12.0 Hypertensive chronic kidney disease with stage 5 chronic kidney disease or end stage renal disease

== ENCOUNTER → 2016-10-04 | Outpatient (CLI) | payer MEDICARE ==
--- NOTE | 2016-10-04 23:35 | ECWPNPC ---
PATIENT NAME: LILY DENNIS : 1980 GENDER: MALE VISIT DATE: 10/04/2016 DISCHARGE DATE: 10/04/16 1708 VISIT LOCKED DATE TIME: PHYSICIAN: RICK ODELL PHYSICIAN PAGER NO: [phone] RESOURCE: RICK ODELL REASON FOR APPOINTMENT 1. MEDS - DR Cohn DISCUSSION HISTORY OF PRESENT ILLNESS HISTORY OF PRESENT ILLNESS: PAIN THE PATIENT DESCRIBES THE PAIN... FALL RISK SCREENING: SCREENING :NO FALLS IN THE PAST YEAR TODAY'S VISIT: NOTES: SAW DR TAYLOR AT LAST VISIT ON WAS CONTINUED ON METHADONE 10 MG 5 TABS 3 X DAY AND HYDROMORPHONE 8MG 3 X PER DAY . WAS SEEN IN [facility] ON - STATRTED ON NEW MED ZORTRESS EVEROLIMUS 0.5 MG AND IS BEING TITRATED UP. IS HAVING SOME INCREASED LEG DISCOMFORT. . CURRENT MEDICATIONS TAKING TACROLIMUS 1 MG CAPSULE DIRECTED ORALLY 3 MGS AM AND 3 MGS PM TAKING PROTONIX 40 MG TABLET DELAYED RELEASE 1 TABLET ORALLY ONCE A DAY TAKING MAY HAVE `` `` ` DIAGNOSIS CODE 729.5 LEFT ANKLE PAIN LEFT ANKLE-BAYRON BRACE TAKING LABETALOL HCL 200 MG TABLET 1 TAB ORALLY TWICE A DAY TAKING FISH OIL 1000 MG CAPSULE 2 CAPS ORALLY TWICE DAILY TAKING CHOLECALCIFEROL 2000 UNIT TABLET 1 TABLET ORALLY DAILY TAKING PREDNISONE 5 MG TABLET 1 TABLET DAILY TAKING MIRALAX _ POWDER 1 CAPFUL ORALLY W NEEDED TAKING VIAGRA 100 MG TABLET TAKE 1/2 -1 TABLET BY MOUTH NEEDED TAKING FLONASE 50 MCG/ACT SUSPENSION 1 SPRAY IN EACH NOSTRIL NASALLY ONCE A DAY TAKING COLACE 100 MG CAPSULE 2 CAP ORALLY TWICE A DAY TAKING CLONIDINE HCL 0.1 MG TABLET 1 TABLET AT BEDTIME ORALLY THREE TIMES DAILY NEEDED FOR WITH DRAL SYMPTOMS TAKING LIDOCAINE-PRILOCAINE 2.5-2.5 % CREAM EXTERNALLY DIRECTED TAKING BENADRYL ALLERGY 25 MG TABLET 2 TABLET NEEDED ORALLY AT BEDTIME TAKING VITAMIN B COMPLEX - TABLET 1 TAB ORALLY DAILY TAKING ZOFRAN 4 MG TABLET 1 TABLETS ORALLY Q 8 HRS PRN TAKING XANAX 0.5 MG TABLET 1 TABLET ORALLY TID PRN/MDD # 3 TAKING MYCOPHENOLIC ACID 180MG 2 CAP PO TWICE DAILY TAKING EVEROLIMUS 0.5 MG TABLET 3 TABLETS ORALLY BID TAKING ASPIRIN ADULT LOW DOSE 81 MG TABLET DELAYED RELEASE 1 TABLET ORALLY ONCE A DAY TAKING METHADONE HCL 10 MG TABLET 5 TABS ORALLY TAKE 5 TABS 3 X PER DAY MDD=15 TAKING HYDROMORPHONE HCL 8 MG TABLET 1 TABLET NEEDED ORALLY EVERY 8 HRS PRN PAIN MDD=3 NOT-TAKING CELLCEPT 500 MG TABLET 2 CAPSULE ORALLY TWICE A DAY NOT-TAKING VITAMIN B-6 100 MG TABLET 1 TABLET ORALLY TWICE DAILY NOT-TAKING GABAPENTIN 300 MG CAPSULE 1 CAPSULE ORALLY BEFORE BEDTIME NOT-TAKING GABAPENTIN 300 MG CAPSULE 1 CAPSULE ORALLY BEFORE BEDTIME NOT-TAKING BUSPIRONE HCL 5 MG TABLET 1 TABLET ORALLY THREE TIMES A DAY NEEDED MEDICATION LIST REVIEWED AND RECONCILED WITH THE PATIENT PAST MEDICAL HISTORY RENAL TRANSPLANT [facility] 2004--REJECTED 2011; LIVE DONOR KIDNEY TRANSPLANT [facility] 04/03 HTN--SEVERE ANEMIA OF CHRONIC DISEASE CHRONIC LOW BACK PAIN BORDERLINE B12 DEFICIENCY C DIFF COLITIS--ADMITTED [facility] 04/28 CAMPYLOBACTER ENTERITIS, [facility]30 BILAT PNEUMONIA WITH E COLI BACTEREMIA, ADMITTED [facility] 11/29 ESRD -- DR FERNANDEZ NEUROPATHIC PAIN LEGS---[facility]; NCS NEURO 11/01 SEVERE SENSORY/MOTOR POLYNEUROPATHY, ? FROM TACROLIMUS ECHO 12/30--EF 65%,LAE 49 MM, MILD AR/MR/PULM HTN ? 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-- 02/01 CHRONIC ANXIETY COMPLICATIONS OF TRANSPLANTED KIDNEY ALLERGIES DOXYCYCLINE: ABNL LFT (AFTER PROLONGED COURSE OF DOXY): SIDE EFFECTS LYRICA: VERTIGO: SIDE EFFECTS CYMBALTA: VERTIGO: SIDE EFFECTS SOCIAL HISTORY GENERAL: TOBACCO USE ARE YOU A:FORMER SMOKER HOW LONG HAS IT BEEN SINCE YOU LAST SMOKED?1-5 YEARS ALCOHOL SCREENING DID YOU HAVE A DRINK CONTAINING ALCOHOL IN THE PAST YEAR?YES HOW OFTEN DID YOU HAVE A DRINK CONTAINING ALCOHOL IN THE PAST YEAR?TWO TO FOUR TIMES A MONTH (2 POINTS) HOW MANY DRINKS DID YOU HAVE ON A TYPICAL DAY WHEN YOU WERE DRINKING IN THE PAST YEAR?3 OR 4 (1 POINT) HOW OFTEN DID YOU HAVE SIX OR MORE DRINKS ON ONE OCCASION IN THE PAST YEAR?NEVER (0 POINTS) POINTS3 INTERPRETATIONNEGATIVE CAFFEINE CAFFEINE USE?YES OCCASIONAL COFFEE EVANGELICAL [id number] NONE LANGUAGE LANGUAGES SPOKEN:GUAMANIAN LEARNING BARRIERS / SPECIAL NEEDS CHANGE FROM LAST VISIT?NO BARRIERS TO LEARNING?NO HEARING IMPAIRED?NO VISION IMPAIRED?NO COGNITIVELY IMPAIRED?NO READINESS TO LEARN?YES LEARNING PREFERENCES?NO LEARNING CAPABILITIES PRESENT?YES EMOTIONAL BARRIERS?NO SPECIAL DEVICES?YES :BRACE ANKLE BRACE FUNCTIONAL MANAGER NEEDED?NO PAIN CLINIC PFS, CLERGY, PUBLIC HEALTH REFERRALS PFS REFERRAL NEEDED?NO CLERGY REFERRAL NEEDED?NO PUBLIC HEALTH REFERRAL NEEDED?NO WAS THE PROVIDER NOTIFIED OF ANY PERTINENT INFO?NO HAS THE PATIENT BEEN EDUCATED REGARDING HIS/HER PLAN OF CARE?YES HAS THE PATIENT BEEN EDUCATED REGARDING PAIN, THE RISK FOR PAIN, THE IMPORTANCE OF EFFECTIVE PAIN MANAGEMENT, AND THE PAIN ASSESSMENT PROCESS?YES PATIENT: ____. REVIEW OF SYSTEMS REVIEWED BY: PROVIDER: . CONSTITUTIONAL: ANY CHANGE IN YOUR MEDICAL CONDITION? YES, CHANGING IMMUNOSUPPRESIVE THERAPY . CHILLS NO . FEVER NO . INFECTION: DO YOU HAVE NEW INFECTIONS? NO . DO YOU HAVE HISTORY OF MRSA? NO . MUSCULOSKELETAL: ANY NEW PATTERNS OF PAIN OR NUMBNESS? YES, NEW PAIN DOWN THE LATERAL ASPECT OF BOTH LEGS . GASTROENTEROLOGY: ANY NEW CHANGE IN BOWEL CONTROL? NO . GENITOURINARY: ANY NEW CHANGE IN BLADDER CONTROL? NO . IS THERE A CHANCE YOU COULD BE ? NO . HEMATOLOGY/LYMPH: DO YOU TAKE ANY BLOOD THINNERS? (FOR EXAMPLE- COUMADIN, PLAVIX, AGGRENOX, PLATEL, PRADAXA, OR XARELTO) NO . WHEN WAS YOUR LAST DOSE? DATE: TIME: . NEUROLOGY: HAVE YOU FALLEN IN THE PAST 6 MONTHS? YES . ANY NEW EXTREMITY NUMBNESS OR WEAKNESS? NO . CARDIOLOGY: DO YOU HAVE A PACEMAKER OR DEFIBRILLATOR? NO . RESPIRATORY: HAVE YOU BEEN SICK IN THE PAST WEEK? YES . FEVER NO . FLU LIKE SYMPTOMS? NO . COUGH NO . INTEGUMENTARY: DO YOU HAVE ANY RASHES OR OPEN SORES? NO . ALLERGIC/IMMUNO: ARE YOU ALLERGIC TO SHELLFISH OR IV DYE? NO . ANY NEW ALLERGIES? NO . PSYCHIATRIC: DO YOU HAVE THOUGHTS OF HURTING YOURSELF OR SOMEONE ELSE? NO . ARE YOU ABUSED, NEGLECTED, OR IN AN UNSAFE ENVIRONMENT? NO . ENDOCRINOLOGY: ARE YOU DIABETIC? NO . OTHER: DO YOU NEED ANY PRESCRIPTIONS? NO . IF YES, PLEASE LIST: ____ . ANY NEW PROBLEMS WITH YOUR MEDICATIONS? NO . WHEN DID YOU LAST EAT? ____ . WHEN DID YOU LAST DRINK? ____ . WHAT DID YOU LAST DRINK? ____ . NAME OF PERSON DRIVING YOU HOME? ____ . DO YOU HAVE ANY OTHER QUESTIONS OR CONCERNS NO . VITAL SIGNS WT 240 LBS, HT 72 IN, BMI 32.55 INDEX, BP 144/88 MM HG, HR 75 /MIN, RR 18 /MIN, TEMP 96.9 F, OXYGEN SAT % 97, NA INITIALS MP, REVIEWED BY: ANDREY. EXAMINATION GENERAL EXAMINATION: PSYCHALERT , ORIENTED X 3 , APPROPRIATE MOOD AND AFFECT . EXTREMITIES:NO EDEMA OBSERVED IN LOWER EXTREMITIES. NEUROLOGIC EXAM:POOR BALANCE, GAIT STEPPING. 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 CLINICAL NOTES: DR TAYLOR CAME TO ROOM AND REVIWED CURRENT STATUS WITH LILY AND HIS SO NIDIA. HE IS STILL IN PROCESS OF INVESTIGATING THIS SITUATION AND DOES NEED TO HAVE DISCUSSION WITH THE [facility] TRANSPLANT TEAM PROVIDER DR KATE . DR TAYLOR ALSO DISCUSSED CONCERNS REGARDING THE DOSING AND THE ISSUES OF TOLERANCE WITH LILY. LILY WAS AGREEBALE TO DECREASE THE METHADONE TO MAX 14 TABS PER DAY[address] PER DR TAYLOR'S DIRECTION I HAVE WRITTEN THE SCRIPTS FOR METHADONE 10 MG 14 TABS PER DAY FOR 20 DAY AND HYDROMORPHONE 8 MG MAY 3 TABS PER DAY FOR 20 DAYS. PROCEDURE CODES FA211 ESTABILISHED PATIENT [facility] FACILITY CHARGE G8730 PAIN ASSESS POS TOOL F/U PLAN DOC G8427 DOC MEDS VERIFIED W/PT OR RE DISPOSITION & COMMUNICATION FOLLOW UP 10/25/16 (REASON: MED MANAGEMENT) ELECTRONICALLY SIGNED BY CARMEN AGUIRRE ON 10/04/2016 AT 05:39 PM EDT DISCLAIMER : THIS IS A VISIT SUMMARY EXTRACTED FROM THE [employer] CHART. IT IS NOT A COPY OF THE [employer] PROGRESS NOTE. SHANNAN
== END ==
LOC: M PAIN 15:10
PROVIDERS: ATTEND Nurse Practitioner Family
DX: G57.91 Unspecified mononeuropathy of right lower limb (principal); G89.29 Other chronic pain; Z79.899 Other long term (current) drug therapy; Z79.82 Long term (current) use of aspirin; Z79.891 Long term (current) use of opiate analgesic; Z87.891 Personal history of nicotine dependence; Z88.8 Allergy status to other drugs, medicaments and biological substances; Z88.1 Allergy status to other antibiotic agents

== ENCOUNTER → 2016-10-10 | Outpatient (REF) | payer MEDICARE ==
[2016-10-10 14:52] LABS: BASO % 0.3 % (0.0-1.0); EOS # 0.2 K/mm3 (0.0-0.50); EOS % 3.3 % (0.0-3.0); LARGE UNSTAINED CELL # 0.2 K/mm3 (0.0-0.4); LARGE UNSTAINED CELL % 3.3 % (0.0-4.0); LYMPH # 1.9 K/mm3 (1.5-4.5); MEAN CORPUSCULAR HEMOGLOBIN 28.8 pg (27.0-33.0); MEAN CORPUSCULAR HGB CONC 32.4 g/dl (32.0-36.5); MEAN CORPUSCULAR VOLUME 88.8 fl (80.0-96.0); MONO # 0.5 K/mm3 (0.0-0.8); MONO % 8.1 % (0.0-5.0); PLATELET COUNT, AUTOMATED 231 k/mm3 (150-450); RED CELL DISTRIBUTION WIDTH 12.7 % (11.5-14.5); WHITE BLOOD COUNT 6.7 K/mm3 (4.0-10.0)
[2016-10-10 15:36] LABS: ALBUMIN 3.7 GM/DL (3.2-5.2); ALBUMIN/GLOBULIN RATIO 1.06 (1.00-1.93); ALKALINE PHOSPHATASE 137 U/L (45-117); ALT/SGPT 23 U/L (12-78); ANION GAP 8 MEQ/L (8-16); AST/SGOT 18 U/L (15-37); BILIRUBIN,DIRECT < 0.1 MG/DL (0.0-0.2); BILIRUBIN,TOTAL 0.3 MG/DL (0.2-1.0); BLOOD UREA NITROGEN 27 MG/DL (7-18); CALCIUM LEVEL 8.7 MG/DL (8.5-10.1); CARBON DIOXIDE LEVEL 26 MEQ/L (21-32); CHLORIDE LEVEL 105 MEQ/L (98-107); CHOLESTEROL LEVEL 197 MG/DL (<200); CREATININE FOR GFR 1.69 MG/DL (0.70-1.30); GLOMERULAR FILTRATION RATE 49.1 (>60); GLUCOSE, FASTING 95 MG/DL (70-105); MAGNESIUM LEVEL 2.1 MG/DL (1.8-2.4); PHOSPHORUS LEVEL 3.6 MG/DL (2.5-4.9); POTASSIUM SERUM 4.2 MEQ/L (3.5-5.1); SODIUM LEVEL 139 MEQ/L (136-145); TOTAL PROTEIN 7.2 GM/DL (6.4-8.2); TRIGLYCERIDES LEVEL 189 MG/DL (<150)
== END ==
LOC: M LABDRAWP 13:13
PROVIDERS: ATTEND Pharmacist
DX: N18.3 Chronic kidney disease, stage 3 (moderate) (principal); E11.9 Type 2 diabetes mellitus without complications; E78.00 Pure hypercholesterolemia, unspecified; E21.3 Hyperparathyroidism, unspecified; E78.5 Hyperlipidemia, unspecified; E21.5 Disorder of parathyroid gland, unspecified; N39.0 Urinary tract infection, site not specified; E55.9 Vitamin D deficiency, unspecified; Z51.81 Encounter for therapeutic drug level monitoring; Z79.899 Other long term (current) drug therapy; Z94.0 Kidney transplant status

== ENCOUNTER → 2016-10-29 | Outpatient (REF) | payer MEDICARE ==
[2016-10-29 13:55] LABS: BASO % 0.4 % (0.0-1.0); EOS # 0.3 K/mm3 (0.0-0.50); EOS % 5.4 % (0.0-3.0); LARGE UNSTAINED CELL # 0.2 K/mm3 (0.0-0.4); LARGE UNSTAINED CELL % 3.3 % (0.0-4.0); LYMPH # 1.6 K/mm3 (1.5-4.5); LYMPH % 32.1 % (24.0-44.0); MEAN CORPUSCULAR HEMOGLOBIN 29.1 pg (27.0-33.0); MEAN CORPUSCULAR HGB CONC 33.6 g/dl (32.0-36.5); MEAN CORPUSCULAR VOLUME 86.6 fl (80.0-96.0); MONO # 0.3 K/mm3 (0.0-0.8); MONO % 5.5 % (0.0-5.0); NEUTROPHILS # 2.7 K/mm3 (1.8-7.7); NEUTROPHILS % 53.3 % (36.0-66.0); PLATELET COUNT, AUTOMATED 276 k/mm3 (150-450); RED CELL DISTRIBUTION WIDTH 12.6 % (11.5-14.5)
[2016-10-29 14:19] LABS: ALBUMIN 3.6 GM/DL (3.2-5.2); ALBUMIN/GLOBULIN RATIO 1.16 (1.00-1.93); ALKALINE PHOSPHATASE 116 U/L (45-117); ALT/SGPT 23 U/L (12-78); ANION GAP 7 MEQ/L (8-16); AST/SGOT 19 U/L (15-37); BILIRUBIN,DIRECT < 0.1 MG/DL (0.0-0.2); BILIRUBIN,TOTAL 0.2 MG/DL (0.2-1.0); BLOOD UREA NITROGEN 19 MG/DL (7-18); CALCIUM LEVEL 8.5 MG/DL (8.5-10.1); CARBON DIOXIDE LEVEL 27 MEQ/L (21-32); CHLORIDE LEVEL 105 MEQ/L (98-107); CHOLESTEROL LEVEL 190 MG/DL (<200); CREATININE FOR GFR 1.86 MG/DL (0.70-1.30); GLUCOSE, FASTING 129 MG/DL (70-105); PHOSPHORUS LEVEL 3.4 MG/DL (2.5-4.9); POTASSIUM SERUM 3.8 MEQ/L (3.5-5.1); SODIUM LEVEL 139 MEQ/L (136-145); TOTAL PROTEIN 6.7 GM/DL (6.4-8.2); TRIGLYCERIDES LEVEL 225 MG/DL (<150)
== END ==
LOC: M LAB REF 10:37
PROVIDERS: ATTEND Pharmacist
DX: N18.3 Chronic kidney disease, stage 3 (moderate) (principal); Z94.0 Kidney transplant status; Z79.899 Other long term (current) drug therapy; E21.3 Hyperparathyroidism, unspecified; E78.00 Pure hypercholesterolemia, unspecified; N39.0 Urinary tract infection, site not specified

== ENCOUNTER → 2016-11-06 | Outpatient (REF) | payer MEDICARE ==
[2016-11-06 14:31] LABS: BASO % 0.3 % (0.0-1.0); EOS # 0.2 K/mm3 (0.0-0.50); EOS % 4.3 % (0.0-3.0); LARGE UNSTAINED CELL # 0.1 K/mm3 (0.0-0.4); LYMPH # 1.5 K/mm3 (1.5-4.5); MEAN CORPUSCULAR HEMOGLOBIN 28.4 pg (27.0-33.0); MEAN CORPUSCULAR HGB CONC 32.6 g/dl (32.0-36.5); MONO # 0.4 K/mm3 (0.0-0.8); MONO % 6.8 % (0.0-5.0); NEUTROPHILS # 3.3 K/mm3 (1.8-7.7); NEUTROPHILS % 60.7 % (36.0-66.0); PLATELET COUNT, AUTOMATED 254 k/mm3 (150-450); RED CELL DISTRIBUTION WIDTH 12.7 % (11.5-14.5); WHITE BLOOD COUNT 5.4 K/mm3 (4.0-10.0)
[2016-11-06 14:55] LABS: ALBUMIN 3.9 GM/DL (3.2-5.2); ALBUMIN/GLOBULIN RATIO 1.15 (1.00-1.93); ALKALINE PHOSPHATASE 97 U/L (45-117); ALT/SGPT 31 U/L (12-78); ANION GAP 10 MEQ/L (8-16); AST/SGOT 21 U/L (15-37); BILIRUBIN,DIRECT < 0.1 MG/DL (0.0-0.2); BILIRUBIN,TOTAL 0.2 MG/DL (0.2-1.0); BLOOD UREA NITROGEN 21 MG/DL (7-18); CARBON DIOXIDE LEVEL 25 MEQ/L (21-32); CHLORIDE LEVEL 106 MEQ/L (98-107); CHOLESTEROL LEVEL 210 MG/DL (<200); CREATININE FOR GFR 1.72 MG/DL (0.70-1.30); GLOMERULAR FILTRATION RATE 48.1 (>60); GLUCOSE, FASTING 90 MG/DL (70-105); MAGNESIUM LEVEL 1.9 MG/DL (1.8-2.4); PHOSPHORUS LEVEL 2.9 MG/DL (2.5-4.9); SODIUM LEVEL 141 MEQ/L (136-145); TOTAL PROTEIN 7.3 GM/DL (6.4-8.2); TRIGLYCERIDES LEVEL 127 MG/DL (<150)
== END ==
LOC: M LAB REF 13:56
PROVIDERS: ATTEND Pharmacist
DX: N18.3 Chronic kidney disease, stage 3 (moderate) (principal); E11.9 Type 2 diabetes mellitus without complications; Z51.81 Encounter for therapeutic drug level monitoring; Z79.899 Other long term (current) drug therapy; E21.3 Hyperparathyroidism, unspecified; E78.00 Pure hypercholesterolemia, unspecified; E78.5 Hyperlipidemia, unspecified; E21.5 Disorder of parathyroid gland, unspecified; E55.9 Vitamin D deficiency, unspecified

== ENCOUNTER → 2016-11-09 | Outpatient (CLI) | payer MEDICARE ==
--- NOTE | 2016-12-08 00:44 | ECWPNPC ---
PATIENT NAME: LILY DENNIS : 1980 GENDER: MALE VISIT DATE: 11/09/2016 DISCHARGE DATE: 11/09/16 0000 VISIT LOCKED DATE TIME: PHYSICIAN: RICK ODELL PHYSICIAN PAGER NO: [phone] RESOURCE: RICK ODELL HISTORY OF PRESENT ILLNESS HISTORY OF PRESENT ILLNESS: PAIN THE PATIENT DESCRIBES THE PAIN... FALL RISK SCREENING: SCREENING :NO FALLS IN THE PAST YEAR TODAY'S VISIT: NOTES: RATES PAIN LEVEL TODAYA S 09/27. HAS BEEN RECENTLY IS AND IS HAVING REJECTION MEDS MANAGED BY [facility] TRANSPLANT TEAM AND ALSO THE PAIN CENTER AT [facility]. IS HAVING GENERALIZED WEAKNESS AND HAS BEEN IN BED. STATES THAT DR MENJIVAR HAD QUESTIONS REGARDING WEAN OF METHADONE. IS EXPERIENCING INTENSE PAIN OVER LEFT LATERAL THIGH/KNEES.. CURRENT MEDICATIONS TAKING TACROLIMUS 1 MG CAPSULE DIRECTED ORALLY 3 MGS AM AND 3 MGS PM TAKING PROTONIX 40 MG TABLET DELAYED RELEASE 1 TABLET ORALLY ONCE A DAY TAKING MAY HAVE `` `` ` DIAGNOSIS CODE 729.5 LEFT ANKLE PAIN LEFT ANKLE-BAYRON BRACE TAKING LABETALOL HCL 200 MG TABLET 1 TAB ORALLY TWICE A DAY TAKING FISH OIL 1000 MG CAPSULE 2 CAPS ORALLY TWICE DAILY TAKING CHOLECALCIFEROL 2000 UNIT TABLET 1 TABLET ORALLY DAILY TAKING PREDNISONE 5 MG TABLET 1 TABLET DAILY TAKING MIRALAX _ POWDER 1 CAPFUL ORALLY NEEDED TAKING VIAGRA 100 MG TABLET TAKE 1/2 -1 TABLET BY MOUTH NEEDED TAKING FLONASE 50 MCG/ACT SUSPENSION 1 SPRAY IN EACH NOSTRIL NASALLY ONCE A DAY TAKING COLACE 100 MG CAPSULE 2 CAP ORALLY TWICE A DAY TAKING CLONIDINE HCL 0.1 MG TABLET 1 TABLET AT BEDTIME ORALLY THREE TIMES DAILY NEEDED FOR WITH DRAL SYMPTOMS TAKING LIDOCAINE-PRILOCAINE 2.5-2.5 % CREAM EXTERNALLY DIRECTED TAKING BENADRYL ALLERGY 25 MG TABLET 2 TABLET NEEDED ORALLY AT BEDTIME TAKING VITAMIN B COMPLEX - TABLET 1 TAB ORALLY DAILY TAKING ZOFRAN 4 MG TABLET 1 TABLETS ORALLY Q 8 HRS PRN TAKING MYCOPHENOLIC ACID 180MG 2 CAP PO TWICE DAILY TAKING EVEROLIMUS 0.5 MG TABLET 3 TABLETS ORALLY BID TAKING ASPIRIN ADULT LOW DOSE 81 MG TABLET DELAYED RELEASE 1 TABLET ORALLY ONCE A DAY TAKING HYDROMORPHONE HCL 8 MG TABLET 1 TABLET NEEDED ORALLY EVERY 8 HRS PRN PAIN MDD=3 TAKING XANAX 0.5 MG TABLET 1 TABLET ORALLY TID PRN/MDD # 3 TAKING METHADONE HCL 10 MG TABLET 3 TABS ORALLY TAKE 2 TABS Q 8 HRS MDD=6 7 DAY SUPPLY NOT-TAKING CELLCEPT 500 MG TABLET 2 CAPSULE ORALLY TWICE A DAY NOT-TAKING VITAMIN B-6 100 MG TABLET 1 TABLET ORALLY TWICE DAILY NOT-TAKING GABAPENTIN 300 MG CAPSULE 1 CAPSULE ORALLY BEFORE BEDTIME NOT-TAKING GABAPENTIN 300 MG CAPSULE 1 CAPSULE ORALLY BEFORE BEDTIME NOT-TAKING BUSPIRONE HCL 5 MG TABLET 1 TABLET ORALLY THREE TIMES A DAY NEEDED MEDICATION LIST REVIEWED AND RECONCILED WITH THE PATIENT PAST MEDICAL HISTORY RENAL TRANSPLANT [place] 2004--REJECTED 2011; LIVE DONOR KIDNEY TRANSPLANT [facility] 04/03 HTN--SEVERE ANEMIA OF CHRONIC DISEASE CHRONIC LOW BACK PAIN BORDERLINE B12 DEFICIENCY C DIFF COLITIS--ADMITTED [facility] 04/28 CAMPYLOBACTER ENTERITIS, ADMITTED [facility] 10/30 BILAT PNEUMONIA WITH E COLI BACTEREMIA, ADMITTED [facility] 11/29 ESRD -- DR FERNANDEZ NEUROPATHIC PAIN LEGS[facility]; [facility]CS NEURO 11/01 SEVERE SENSORY/MOTOR POLYNEUROPATHY, ? FROM TACROLIMUS ECHO 12/30--EF 65%,LAE 49 MM, MILD AR/MR/PULM HTN ? 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 CONSTITUTIONAL: ANY CHANGE IN YOUR MEDICAL CONDITION? YES, COLD SYMPS PAST 2-4 WEEKS, DENIES FEVER. RAISING YELLOW MUCUSTRANSPLANT TEAM HAS CHANGED HIS MEDS . CHILLS NO . FEVER NO . INFECTION: DO YOU HAVE NEW INFECTIONS? NO . DO YOU HAVE HISTORY OF MRSA? NO . MUSCULOSKELETAL: ANY NEW PATTERNS OF PAIN OR NUMBNESS? YES, LEFT THIGH IS BURNING AND CRAMPING(LOCKS LEG UP) X 2 MONTHS . GASTROENTEROLOGY: ANY NEW CHANGE IN BOWEL CONTROL? YES, HAVING A LOT OF DIARRHEA FOR PAST 2-3 WEEKS . GENITOURINARY: ANY NEW CHANGE IN BLADDER CONTROL? NO . IS THERE A CHANCE YOU COULD BE ? NO . HEMATOLOGY/LYMPH: DO YOU TAKE ANY BLOOD THINNERS? (FOR EXAMPLE- COUMADIN, PLAVIX, AGGRENOX, PLATEL, PRADAXA, OR XARELTO) NO . WHEN WAS YOUR LAST DOSE? DATE: TIME: . NEUROLOGY: HAVE YOU FALLEN IN THE PAST 6 MONTHS? YES, LAST TIME BEGINNING OF SEP.--CAN'T FEEL HIS FEET SO HE TRIPS UP FREQUENTLY . ANY NEW EXTREMITY NUMBNESS OR WEAKNESS? NO . CARDIOLOGY: DO YOU HAVE A PACEMAKER OR DEFIBRILLATOR? NO . RESPIRATORY: FEVER NO . FLU LIKE SYMPTOMS? NO . COUGH NO . INTEGUMENTARY: DO YOU HAVE ANY RASHES OR OPEN SORES? NO . ALLERGIC/IMMUNO: ARE YOU ALLERGIC TO SHELLFISH OR IV DYE? NO . ANY NEW ALLERGIES? NO . PSYCHIATRIC: DO YOU HAVE THOUGHTS OF HURTING YOURSELF OR SOMEONE ELSE? NO . ARE YOU ABUSED, NEGLECTED, OR IN AN UNSAFE ENVIRONMENT? NO . ENDOCRINOLOGY: ARE YOU DIABETIC? NO . OTHER: DO YOU NEED ANY PRESCRIPTIONS? NO . IF YES, PLEASE LIST: ____ . ANY NEW PROBLEMS WITH YOUR MEDICATIONS? YES, WEAK, FATIGUE AND SWEATING FROM EVEROLIMUS . WHEN DID YOU LAST EAT? ____ . WHEN DID YOU LAST DRINK? ____ . WHAT DID YOU LAST DRINK? ____ . NAME OF PERSON DRIVING YOU HOME? ____ . DO YOU HAVE ANY OTHER QUESTIONS OR CONCERNS NO . VITAL SIGNS WT 233 LBS, HT 72 IN, BMI 31.60 INDEX, BP 159/97 MM HG, HR 78 /MIN, RR 16 /MIN, TEMP 96.6 F, OXYGEN SAT % 99, REVIEWED BY: CM/AD. EXAMINATION GENERAL EXAMINATION: PSYCHALERT , ORIENTED X 3 , APPROPRIATE MOOD AND AFFECT . EXTREMITIES:NO EDEMA OBSERVED IN LOWER EXTREMITIES. NEUROLOGIC EXAM:POOR BALANCE, GAIT STEPPING. ASSESSMENTS OTHER CHRONIC PAIN - G89.29 (PRIMARY) LEFT HIP PAIN - M25.552 NEUROPATHY - G62.9 TREATMENT OTHER CHRONIC PAIN REFILL CLONIDINE HCL TABLET, 0.1 MG, 1 TABLET AT BEDTIME, ORALLY, THREE TIMES DAILY NEEDED FOR WITH DRAL SYMPTOMS, 14 DAYS, 42, REFILLS 1 START TIZANIDINE HCL TABLET, 4 MG, 1 TABLET NEEDED, ORALLY, THREE TIMES A DAY, 30 DAY(S), 90 TABLET, REFILLS 0 NOTES: WILL HAVE DR TAYLOR SPEAK WITH DR MENJIVAR REGARDING WEANING OF PAIN MEDS. FOLLOWUP WITH NEUROLOGY FOR EMG AND POSSIBLE MRI OF LEFT LEG. PROCEDURE CODES FA211 ESTABILISHED PATIENT [facility] CHARGE DISPOSITION & COMMUNICATION FOLLOW UP WITH DR TAYLOR ELECTRONICALLY SIGNED BY CARMEN AGUIRRE ON 12/07/2016 AT 07:16 AM EDT DISCLAIMER : THIS IS A VISIT SUMMARY EXTRACTED FROM THE [employer] CHART. IT IS NOT A COPY OF THE [employer] PROGRESS NOTE. SEJALD
== END ==
LOC: M PAIN 09:45
PROVIDERS: ATTEND Nurse Practitioner Family
DX: G89.29 Other chronic pain (principal); M25.552 Pain in left hip; G62.9 Polyneuropathy, unspecified; D63.1 Anemia in chronic kidney disease; F06.4 Anxiety disorder due to known physiological condition; K21.9 Gastro-esophageal reflux disease without esophagitis; I12.0 Hypertensive chronic kidney disease with stage 5 chronic kidney disease or end stage renal disease; N18.5 Chronic kidney disease, stage 5; F43.21 Adjustment disorder with depressed mood; Z88.8 Allergy status to other drugs, medicaments and biological substances; Z79.52 Long term (current) use of systemic steroids; Z79.82 Long term (current) use of aspirin; Z79.891 Long term (current) use of opiate analgesic; Z79.899 Other long term (current) drug therapy; Z94.0 Kidney transplant status

== ENCOUNTER → 2016-11-21 | Outpatient (CLI) | payer MEDICARE ==
--- NOTE | 2016-11-26 23:53 | ECWPNPC ---
PATIENT NAME: LILY DENNIS : 1980 GENDER: MALE VISIT DATE: 11/21/2016 DISCHARGE DATE: 11/21/16 1727 VISIT LOCKED DATE TIME: PHYSICIAN: DILSHAD TAYLOR PHYSICIAN PAGER NO: [phone] RESOURCE: DILSHAD TAYLOR REASON FOR APPOINTMENT 1. BACK PAIN HISTORY OF PRESENT ILLNESS HISTORY OF PRESENT ILLNESS: PAIN THE PATIENT DESCRIBES THE PAIN... 36 YEAR OLD MALE PATIENT WITH HISTORY OF CHRONIC LEG PAIN. PATIENT DESCRIBES THE PAIN ACHING, BURNING, SHARP, STABBING, TENDER, THROBBING, SORE, SHOOTING, AND HAVING IT ALL THE TIME WITH A PAIN SCORE OF 7/10. PATIENT IS USING METHADONE, HYDROMORPHONE, AND LIDOCAINE FOR THE PAIN. PATIENT IS STARTING TO WEAN FROM HIM METHADONE AND STATES HE FEELS THOUGH HE IS BEING WEANED TO QUICKLY. PATIENT REPORTS THAT ANY ACTIVITY INCLUDING STAND, WALKING, AND SITTING INCREASES THE PAIN. PATIENT DENIES UNEXPLAINABLE WEIGHT LOSS, FEVER, CHILLS, NEW CHANGES ON HIS URINARY OR BOWEL CONTROL. FALL RISK SCREENING: SCREENING :NO FALLS IN THE PAST YEAR CURRENT MEDICATIONS TAKING TACROLIMUS 1 MG CAPSULE DIRECTED ORALLY 3 MGS AM AND 3 MGS PM TAKING PROTONIX 40 MG TABLET DELAYED RELEASE 1 TABLET ORALLY ONCE A DAY TAKING MAY HAVE `` `` ` DIAGNOSIS CODE 729.5 LEFT ANKLE PAIN LEFT ANKLE-BAYRON BRACE TAKING LABETALOL HCL 200 MG TABLET 1 TAB ORALLY TWICE A DAY TAKING FISH OIL 1000 MG CAPSULE 2 CAPS ORALLY TWICE DAILY TAKING CHOLECALCIFEROL 2000 UNIT TABLET 1 TABLET ORALLY DAILY TAKING PREDNISONE 5 MG TABLET 1 TABLET DAILY TAKING MIRALAX _ POWDER 1 CAPFUL ORALLY NEEDED TAKING VIAGRA 100 MG TABLET TAKE 1/2 -1 TABLET BY MOUTH NEEDED TAKING FLONASE 50 MCG/ACT SUSPENSION 1 SPRAY IN EACH NOSTRIL NASALLY ONCE A DAY TAKING COLACE 100 MG CAPSULE 2 CAP ORALLY TWICE A DAY TAKING LIDOCAINE-PRILOCAINE 2.5-2.5 % CREAM EXTERNALLY DIRECTED TAKING BENADRYL ALLERGY 25 MG TABLET 2 TABLET NEEDED ORALLY AT BEDTIME TAKING VITAMIN B COMPLEX - TABLET 1 TAB ORALLY DAILY TAKING ZOFRAN 4 MG TABLET 1 TABLETS ORALLY Q 8 HRS PRN TAKING MYCOPHENOLIC ACID 180MG 2 CAP PO TWICE DAILY TAKING EVEROLIMUS 0.5 MG TABLET 4 TABLETS ORALLY BID TAKING ASPIRIN ADULT LOW DOSE 81 MG TABLET DELAYED RELEASE 1 TABLET ORALLY ONCE A DAY TAKING HYDROMORPHONE HCL 8 MG TABLET 1 TABLET NEEDED ORALLY EVERY 8 HRS PRN PAIN MDD=3 TAKING CLONIDINE HCL 0.1 MG TABLET 1 TABLET AT BEDTIME ORALLY THREE TIMES DAILY NEEDED FOR WITH DRAL SYMPTOMS TAKING TIZANIDINE HCL 4 MG TABLET 1 TABLET NEEDED ORALLY THREE TIMES A DAY TAKING XANAX 0.5 MG TABLET 1 TABLET ORALLY TID PRN/MDD # 3 TAKING METHADONE HCL 10 MG TABLET TAB ORALLY TAKE 2 TABS Q 8 HRS MDD=6 7 DAY SUPPLY TAKING GABAPENTIN 300 MG CAPSULE 1 CAPSULE ORALLY TID NOT-TAKING CELLCEPT 500 MG TABLET 2 CAPSULE ORALLY TWICE A DAY NOT-TAKING VITAMIN B-6 100 MG TABLET 1 TABLET ORALLY TWICE DAILY NOT-TAKING GABAPENTIN 300 MG CAPSULE 1 CAPSULE ORALLY BEFORE BEDTIME NOT-TAKING BUSPIRONE HCL 5 MG TABLET 1 TABLET ORALLY THREE TIMES A DAY NEEDED MEDICATION LIST REVIEWED AND RECONCILED WITH THE PATIENT PAST MEDICAL HISTORY RENAL TRANSPLANT [facility] 2004--REJECTED 2011; LIVE DONOR KIDNEY TRANSPLANT [facility] 04/03 HTN--SEVERE ANEMIA OF CHRONIC DISEASE CHRONIC LOW BACK PAIN BORDERLINE B12 DEFICIENCY C DIFF COLITIS--ADMITTED [facility] 04/28 CAMPYLOBACTER ENTERITIS, ADMITTED [facility] 10/30 BILAT PNEUMONIA WITH E COLI BACTEREMIA, ADMITTED [facility] 11/29 ESRD -- DR FERNANDEZ NEUROPATHIC PAIN LEGS---[facility]IN[facility]; NCS NEURO 11/01 SEVERE SENSORY/MOTOR POLYNEUROPATHY, ? FROM TACROLIMUS ECHO 12/30--EF 65%,LAE 49 MM, MILD AR/MR/PULM HTN ? 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 CONSTITUTIONAL: ANY CHANGE IN YOUR MEDICAL CONDITION? YES PT REPORTS RESULTS OF EMG TESTING DISCUSSED WITH DR. TAYLOR AT TODAY'S VISIT. . CHILLS NO . FEVER NO . INFECTION: DO YOU HAVE NEW INFECTIONS? NO . DO YOU HAVE HISTORY OF MRSA? NO . MUSCULOSKELETAL: ANY NEW PATTERNS OF PAIN OR NUMBNESS? YES DISCUSSED WITH DR. TAYLOR. . GASTROENTEROLOGY: ANY NEW CHANGE IN BOWEL CONTROL? YES PT REPORTS LOOSE STOOLS . GENITOURINARY: ANY NEW CHANGE IN BLADDER CONTROL? NO . IS THERE A CHANCE YOU COULD BE ? NO . HEMATOLOGY/LYMPH: DO YOU TAKE ANY BLOOD THINNERS? (FOR EXAMPLE- COUMADIN, PLAVIX, AGGRENOX, PLATEL, PRADAXA, OR XARELTO) NO . WHEN WAS YOUR LAST DOSE? DATE: TIME: . NEUROLOGY: HAVE YOU FALLEN IN THE PAST 6 MONTHS? NO . ANY NEW EXTREMITY NUMBNESS OR WEAKNESS? NO . CARDIOLOGY: DO YOU HAVE A PACEMAKER OR DEFIBRILLATOR? NO . RESPIRATORY: HAVE YOU BEEN SICK IN THE PAST WEEK? NO . FEVER NO . FLU LIKE SYMPTOMS? NO . COUGH NO . INTEGUMENTARY: DO YOU HAVE ANY RASHES OR OPEN SORES? YES RASH ON BOTH LEGS, ITCHY SMALL SCABBED AREAS. . ALLERGIC/IMMUNO: ARE YOU ALLERGIC TO SHELLFISH OR IV DYE? NO . ANY NEW ALLERGIES? NO . PSYCHIATRIC: DO YOU HAVE THOUGHTS OF HURTING YOURSELF OR SOMEONE ELSE? NO . ARE YOU ABUSED, NEGLECTED, OR IN AN UNSAFE ENVIRONMENT? NO . ENDOCRINOLOGY: ARE YOU DIABETIC? NO . OTHER: DO YOU NEED ANY PRESCRIPTIONS? NO . IF YES, PLEASE LIST: ____ . ANY NEW PROBLEMS WITH YOUR MEDICATIONS? NO . WHEN DID YOU LAST EAT? ____ . WHEN DID YOU LAST DRINK? ____ . WHAT DID YOU LAST DRINK? ____ . NAME OF PERSON DRIVING YOU HOME? ____ . DO YOU HAVE ANY OTHER QUESTIONS OR CONCERNS NO . VITAL SIGNS WT 230 LBS, HT 72 IN, BMI 31.19 INDEX, BP 157/94 MM HG, HR 80 /MIN, RR 16 /MIN, TEMP 97.6 F, OXYGEN SAT % 98%, NA INITIALS AW 1530, REVIEWED BY: GENE. EXAMINATION : PATIENT IS ALERT O X 3 AND COOPERATIVE. TENDERNESS IN THE LOWER BACK AND PARASPINAL MUSCLE GROUP. MRI OF THE LUMBAR SPINE DONE ON 11/14/15 SHOWS DEGENERATIVE DISC DISEASE WELL MULTIPLE DISC BULGES. 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 TREATMENT OTHER CHRONIC PAIN NOTES: WE DISCUSSED SEVERAL ISSUES WITH MR. DENNIS'S [place]AY MANAGEMENT CASE. AT THIS TIME THE PATIENT WILL CONTINUE TO USE GABAPENTIN. PATIENT WILL USE METHADONE BUT CONTINUE TO BE WEANED, PATIENT IS ALLOWED 6 TABLETS A DAY UNTIL HE IS ABLE TO BE SEEN BY THE PAIN CLINIC IN [place]. PATIENT WILL DISCONTINUE HYDROMORPHONE. PATIENT AGREES WITH THIS PAIN. ISTOP REVIEWED [phone]. PATIENT WILL RETURN TO THE CLINIC IN 2 WEEKS. INSTRUCTIONS WERE GIVEN, QUESTIONS WERE ANSWERED, PATIENT REPORTS UNDERSTANDING AND AGREES WITH THE PLAN. I, WILVER KITCHEN, DOCUMENTED THE ABOVE INFORMATION ACTING A SCRIBE FOR DR. TAYLOR. I HAVE REVIEWED THE ABOVE DOCUMENT, WRITTEN BY WILVER VALLEJO AND I VERIFY THAT IT IS ACCURATE. OTHERS REFILL METHADONE HCL TABLET, 10 MG, TAB, ORALLY, TAKE 2 TABS Q 8 HRS MDD=6 (7 DAY SUPPLY), 7 DAYS, 42, REFILLS 0 START GABAPENTIN CAPSULE, 100 MG, DIRECTED, ORALLY, TID FOR PAIN MDD3, 30 DAY(S), 90, REFILLS 0 PROCEDURE CODES FA211 ESTABILISHED PATIENT [facility] FACILITY CHARGE G8427 DOC MEDS VERIFIED W/PT OR RE G4391 PAIN ASSESS POS TOOL F/U PLAN DOC DISPOSITION & COMMUNICATION FOLLOW UP 2 WEEKS ELECTRONICALLY SIGNED BY DILSHAD TAYLOR MD ON 11/26/2016 AT 09:01 PM EDT DISCLAIMER : THIS IS A VISIT SUMMARY EXTRACTED FROM THE [employer] CHART. IT IS NOT A COPY OF THE [employer] PROGRESS NOTE. MTDD
== END ==
LOC: M PAIN 15:30
PROVIDERS: ATTEND Anesthesiology
DX: G89.29 Other chronic pain (principal); M51.16 Intervertebral disc disorders with radiculopathy, lumbar region; N18.5 Chronic kidney disease, stage 5; I12.0 Hypertensive chronic kidney disease with stage 5 chronic kidney disease or end stage renal disease; Z48.22 Encounter for aftercare following kidney transplant; Z79.82 Long term (current) use of aspirin; Z79.891 Long term (current) use of opiate analgesic; Z79.899 Other long term (current) drug therapy; Z88.1 Allergy status to other antibiotic agents; Z88.8 Allergy status to other drugs, medicaments and biological substances; Z94.0 Kidney transplant status
CPT/HCPCS: 36415; 80048; 80169; 80197; 83735; 84100; 85025; G0463

== ENCOUNTER → 2016-11-21 | Outpatient (REF) | payer MEDICARE ==
[2016-11-21 19:59] LABS: BASO % 0.2 % (0.0-1.0); EOS # 0.1 10^3/uL (0.0-0.50); EOS % 2.8 % (0.0-3.0); IMMATURE GRANULOCYTE % 0.2 % (0-0); LYMPH # 0.9 10^3/uL (1.5-4.5); LYMPH % 20.1 % (24.0-44.0); MEAN CORPUSCULAR HEMOGLOBIN 27.9 pg (27.0-33.0); MONO # 0.4 10^3/uL (0.0-0.8); MONO % 8.2 % (0.0-5.0); NEUTROPHILS # 3.2 10^3/uL (1.8-7.7); NEUTROPHILS % 68.5 % (36.0-66.0); PLATELET COUNT, AUTOMATED 240 10^3/uL (150-450); RED CELL DISTRIBUTION WIDTH 12.5 % (11.5-14.5); WHITE BLOOD COUNT 4.6 10^3/uL (4.0-10.0)
[2016-11-21 20:10] LABS: ADD MORPHOLOGY? NO
[2016-11-21 20:26] LABS: ANION GAP 8 MEQ/L (8-16); BLOOD UREA NITROGEN 14 MG/DL (7-18); CALCIUM LEVEL 9.1 MG/DL (8.5-10.1); CARBON DIOXIDE LEVEL 25 MEQ/L (21-32); CHLORIDE LEVEL 107 MEQ/L (98-107); CREATININE FOR GFR 1.35 MG/DL (0.70-1.30); GLOMERULAR FILTRATION RATE > 60.0 (>60); GLUCOSE, FASTING 88 MG/DL (70-105); MAGNESIUM LEVEL 2.1 MG/DL (1.8-2.4); PHOSPHORUS LEVEL 2.6 MG/DL (2.5-4.9); POTASSIUM SERUM 4.3 MEQ/L (3.5-5.1); SODIUM LEVEL 140 MEQ/L (136-145)
[2016-11-25 00:06] LABS: EVEROLIMUS LEVEL 2.7 ng/mL (3.0-8.0)
== END ==
LOC: M LABDRAWP 17:04
PROVIDERS: ATTEND Internal Medicine Nephrology
DX: N18.3 Chronic kidney disease, stage 3 (moderate) (principal); Z51.81 Encounter for therapeutic drug level monitoring; Z79.899 Other long term (current) drug therapy; Z94.0 Kidney transplant status

== ENCOUNTER → 2016-12-12 | Outpatient (CLI) | payer MEDICARE ==
--- NOTE | 2016-12-30 23:49 | ECWPNPC ---
PATIENT NAME: LILY DENNIS : 1980 GENDER: MALE VISIT DATE: 12/12/2016 DISCHARGE DATE: 12/12/16 1633 VISIT LOCKED DATE TIME: PHYSICIAN: DILSHAD TAYLOR PHYSICIAN PAGER NO: [phone] RESOURCE: DILSHAD TAYLOR REASON FOR APPOINTMENT 1. LOW BACK PAIN HISTORY OF PRESENT ILLNESS HISTORY OF PRESENT ILLNESS: PAIN THE PATIENT DESCRIBES THE PAIN... 36 YEAR OLD MALE PATIENT WITH HISTORY OF CHRONIC LOW BACK PAIN. PATIENT DESCRIBES THE PAIN ACHING, BURNING, SHARP, STABBING, TENDER, THROBBING, SORE, SHOOTING, AND HAVING IT ALL THE TIME WITH A PAIN SCORE OF 8/10. PATIENT IS USING METHADONE, LIDOCAINE FOR THE PAIN. PATIENT STATES THAT THE METHADONE IS HELPING HIM BUT BELIEVES HE NEEDS MORE TABLETS A DAY TO FUNCTION. MR. DENNIS STATES THAT HE HAS AN APPOINTMENT WITH [facility] ON December. PATIENT REPORTS THAT ANY ACTIVITY INCLUDING STAND, WALKING, AND SITTING INCREASES THE PAIN. PATIENT DENIES UNEXPLAINABLE WEIGHT LOSS, FEVER, CHILLS, NEW CHANGES ON HIS URINARY OR BOWEL CONTROL. FALL RISK SCREENING: SCREENING :NO FALLS IN THE PAST YEAR CURRENT MEDICATIONS TAKING GABAPENTIN 100 MG CAPSULE DIRECTED ORALLY TID FOR PAIN MDD3 TAKING PROTONIX 40 MG TABLET DELAYED RELEASE 1 TABLET ORALLY ONCE A DAY TAKING MAY HAVE `` `` ` DIAGNOSIS CODE 729.5 LEFT ANKLE PAIN LEFT ANKLE-BAYRON BRACE TAKING LABETALOL HCL 200 MG TABLET 1 TAB ORALLY TWICE A DAY TAKING FISH OIL 1000 MG CAPSULE 2 CAPS ORALLY TWICE DAILY TAKING CHOLECALCIFEROL 2000 UNIT TABLET 1 TABLET ORALLY DAILY TAKING PREDNISONE 5 MG TABLET 1 TABLET DAILY TAKING MIRALAX _ POWDER 1 CAPFUL ORALLY W NEEDED TAKING VIAGRA 100 MG TABLET TAKE 1/2 -1 TABLET BY MOUTH NEEDED TAKING FLONASE 50 MCG/ACT SUSPENSION 1 SPRAY IN EACH NOSTRIL NASALLY ONCE A DAY TAKING COLACE 100 MG CAPSULE 2 CAP ORALLY TWICE A DAY TAKING LIDOCAINE-PRILOCAINE 2.5-2.5 % CREAM EXTERNALLY DIRECTED TAKING BENADRYL ALLERGY 25 MG TABLET 2 TABLET NEEDED ORALLY AT BEDTIME TAKING VITAMIN B COMPLEX - TABLET 1 TAB ORALLY DAILY TAKING ZOFRAN 4 MG TABLET 1 TABLETS ORALLY Q 8 HRS PRN TAKING MYCOPHENOLIC ACID 180MG 2 CAP PO TWICE DAILY TAKING EVEROLIMUS 0.5 MG TABLET 5 TABLETS ORALLY BID TAKING ASPIRIN ADULT LOW DOSE 81 MG TABLET DELAYED RELEASE 1 TABLET ORALLY ONCE A DAY TAKING HYDROMORPHONE HCL 8 MG TABLET 1 TABLET NEEDED ORALLY EVERY 8 HRS PRN PAIN MDD=3 TAKING CLONIDINE HCL 0.1 MG TABLET 1 TABLET AT BEDTIME ORALLY THREE TIMES DAILY NEEDED FOR WITH DRAL SYMPTOMS TAKING TIZANIDINE HCL 4 MG TABLET 1 TABLET NEEDED ORALLY THREE TIMES A DAY TAKING BUPROPION HCL ER (SMOKING DET) 150 MG TABLET EXTENDED RELEASE 12 HOUR 1 TABLET IN THE MORNING ORALLY ONCE A DAY TAKING METHADONE HCL 10 MG TABLET TAB ORALLY TAKE 2 TABS Q 8 HRS MDD=6 (7 DAY SUPPLY) TAKING XANAX 0.5 MG TABLET 1 TABLET ORALLY TID PRN/MDD # 3 NOT-TAKING TACROLIMUS 1 MG CAPSULE DIRECTED ORALLY 3 MGS AM AND 3 MGS PM, NOTES: BEING WEANED OFF BY UR (12/04) MEDICATION LIST REVIEWED AND RECONCILED WITH THE PATIENT PAST MEDICAL HISTORY RENAL TRANSPLANT [facility] 2004--REJECTED 2011; LIVE DONOR KIDNEY TRANSPLANT [facility] 04/03 HTN--SEVERE ANEMIA OF CHRONIC DISEASE CHRONIC LOW BACK PAIN BORDERLINE B12 DEFICIENCY C DIFF COLITIS--ADMITTED [facility] 04/28 CAMPYLOBACTER ENTERITIS, ADMITTED [facility] 10/30 BILAT PNEUMONIA WITH E COLI BACTEREMIA, ADMITTED [facility] 11/29 ESRD -- DR FERNANDEZ NEUROPATHIC PAIN LEGS---[facility]; NCS NEURO 11/01 SEVERE SENSORY/MOTOR POLYNEUROPATHY, ? FROM TACROLIMUS; REPEAT NCS 12/04, PN IS MORE SEVERE, ESSENTIALLY DENERVATED IN LEGS ECHO 12/30--EF 65%,LAE 49 MM, MILD AR/MR/PULM HTN ? 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 SOCIAL HISTORY GENERAL: TOBACCO USE ARE YOU A:FORMER SMOKER HOW LONG HAS IT BEEN SINCE YOU LAST SMOKED?1-5 YEARS ALCOHOL SCREENING DID YOU HAVE A DRINK CONTAINING ALCOHOL IN THE PAST YEAR?YES HOW OFTEN DID YOU HAVE A DRINK CONTAINING ALCOHOL IN THE PAST YEAR?TWO TO FOUR TIMES A MONTH (2 POINTS) HOW MANY DRINKS DID YOU HAVE ON A TYPICAL DAY WHEN YOU WERE DRINKING IN THE PAST YEAR?3 OR 4 (1 POINT) HOW OFTEN DID YOU HAVE SIX OR MORE DRINKS ON ONE OCCASION IN THE PAST YEAR?NEVER (0 POINTS) POINTS3 INTERPRETATIONNEGATIVE CAFFEINE CAFFEINE USE?YES OCCASIONAL COFFEE MANDAEN [id number] NONE LANGUAGE LANGUAGES SPOKEN:MALAYSIAN LEARNING BARRIERS / SPECIAL NEEDS CHANGE FROM LAST VISIT?NO BARRIERS TO LEARNING?NO HEARING IMPAIRED?NO VISION IMPAIRED?NO COGNITIVELY IMPAIRED?NO READINESS TO LEARN?YES LEARNING PREFERENCES?NO LEARNING CAPABILITIES PRESENT?YES EMOTIONAL BARRIERS?NO 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 HOSPITALIZATION/MAJOR DIAGNOSTIC PROCEDURE [facility] GASTRIC ISSUES 02/01 UPSATE-GASTRIC ISSUES 08/2016 REVIEW OF SYSTEMS REVIEWED BY: PROVIDER: DILSHAD TAYLOR MD . CONSTITUTIONAL: ANY CHANGE IN YOUR MEDICAL CONDITION? NO . CHILLS NO . FEVER NO . INFECTION: DO YOU HAVE NEW INFECTIONS? NO . DO YOU HAVE HISTORY OF MRSA? NO . MUSCULOSKELETAL: ANY NEW PATTERNS OF PAIN OR NUMBNESS? YES, NEUROPATHY IS SPREADING UP BILAT LEGS . GASTROENTEROLOGY: ANY NEW CHANGE IN BOWEL CONTROL? NO . GENITOURINARY: ANY NEW CHANGE IN BLADDER CONTROL? NO . IS THERE A CHANCE YOU COULD BE ? NO . HEMATOLOGY/LYMPH: DO YOU TAKE ANY BLOOD THINNERS? (FOR EXAMPLE- COUMADIN, PLAVIX, AGGRENOX, PLATEL, PRADAXA, OR XARELTO) NO . WHEN WAS YOUR LAST DOSE? DATE: TIME: . NEUROLOGY: HAVE YOU FALLEN IN THE PAST 6 MONTHS? YES, PT STATES HE FALLS FREQUENTLY FROM LOSS OF SENSATION IN FEET. PT STATES ASSISTIVE DEVICES HAVE BEEN DISCUSSED IN PAST, BUT PT REFUSES TO USE CANE, WALKER... . ANY NEW EXTREMITY NUMBNESS OR WEAKNESS? NO . CARDIOLOGY: DO YOU HAVE A PACEMAKER OR DEFIBRILLATOR? NO . RESPIRATORY: HAVE YOU BEEN SICK IN THE PAST WEEK? NO . FEVER NO . FLU LIKE SYMPTOMS? NO . COUGH NO . INTEGUMENTARY: DO YOU HAVE ANY RASHES OR OPEN SORES? NO . ALLERGIC/IMMUNO: ARE YOU ALLERGIC TO SHELLFISH OR IV DYE? NO . ANY NEW ALLERGIES? NO . PSYCHIATRIC: DO YOU HAVE THOUGHTS OF HURTING YOURSELF OR SOMEONE ELSE? NO . ARE YOU ABUSED, NEGLECTED, OR IN AN UNSAFE ENVIRONMENT? NO . ENDOCRINOLOGY: ARE YOU DIABETIC? NO . OTHER: DO YOU NEED ANY PRESCRIPTIONS? YES, METHADONE . IF YES, PLEASE LIST: ____ . ANY NEW PROBLEMS WITH YOUR MEDICATIONS? YES, PT REPORTS MEDICATION CHANGES. EVEROLIMUS RECENTLY STARTED AND PLAN TO D/C TACROLIMUS. PT REPORTS MORE ACHING WITH THIS CHANGE . WHEN DID YOU LAST EAT? ____ . WHEN DID YOU LAST DRINK? ____ . WHAT DID YOU LAST DRINK? ____ . NAME OF PERSON DRIVING YOU HOME? ____ . DO YOU HAVE ANY OTHER QUESTIONS OR CONCERNS NO, PT DENIES HAVING FLU SHOT THIS SEASON, PLANS ON GETTING WITH PCP . VITAL SIGNS WT 231 LBS, HT 72 IN, BMI 31.33 INDEX, BP 141/81 MM HG, HR 82 /MIN, RR 18 /MIN, TEMP 96.8 F, OXYGEN SAT % 98%, NA INITIALS AW 1531, REVIEWED BY: YAS. EXAMINATION : PATIENT IS ALERT O X 3 AND COOPERATIVE. TENDERNESS IN THE LOWER BACK AND PARASPINAL MUSCLE GROUP. MRI OF THE LUMBAR SPINE DONE ON 11/14/15 SHOWS DEGENERATIVE DISC DISEASE WELL MULTIPLE DISC BULGES. ASSESSMENTS OTHER CHRONIC PAIN - G89.29 (PRIMARY) INTERVERTEBRAL DISC DISORDER WITH RADICULOPATHY OF LUMBAR REGION - M51.16 TREATMENT OTHER CHRONIC PAIN NOTES: WE DISCUSSED SEVERAL ISSUES WITH MR. DENNIS'S SHAY MANAGEMENT CASE. AT THIS TIME THE PATIENT WILL CONTINUE TO USE GABAPENTIN AND INCREASE IT INSTRUCTED. PATIENT WILL USE METHADONE FOR THE SOMATIC PAIN BUT WAS ADVISED TO USE TO THE LEAST AMOUNT POSSIBLE. PATIENT WILL BE SEEN AT THE [facility] ON December ISTOP REVIEWED [phone]. PATIENT WILL RETURN TO THE CLINIC IN 2 WEEKS. INSTRUCTIONS WERE GIVEN, QUESTIONS WERE ANSWERED, PATIENT REPORTS UNDERSTANDING AND AGREES WITH THE PLAN. WILVER Kent, DOCUMENTED THE ABOVE INFORMATION ACTING A SCRIBE FOR DR. TAYLOR. I HAVE REVIEWED THE ABOVE DOCUMENT, WRITTEN BY WILVER VALLEJO AND I VERIFY THAT IT IS ACCURATE. OTHERS REFILL METHADONE HCL TABLET, 10 MG, TAB, ORALLY, TAKE 2 TABS Q 8 HRS MDD=6 (7 DAY SUPPLY), 21 DAY(S), 42, REFILLS 0 REFILL GABAPENTIN CAPSULE, 100 MG, 2 TABS, ORALLY FOR PAIN, THREE TIMES DAILY MDD6, 30 DAY(S), 180, REFILLS 0 PROCEDURE CODES FA211 ESTABILISHED PATIENT [facility] FACILITY CHARGE G8427 DOC MEDS VERIFIED W/PT OR RE G8730 PAIN ASSESS POS TOOL F/U PLAN DOC DISPOSITION & COMMUNICATION FOLLOW UP 2 WEEKS ELECTRONICALLY SIGNED BY DILSHAD TAYLOR MD ON 12/30/2016 AT 09:24 PM EST DISCLAIMER : THIS IS A VISIT SUMMARY EXTRACTED FROM THE [employer] CHART. IT IS NOT A COPY OF THE [employer] PROGRESS NOTE. MTDD
== END ==
LOC: M PAIN 15:15
PROVIDERS: ATTEND Anesthesiology
DX: G89.29 Other chronic pain (principal); M51.16 Intervertebral disc disorders with radiculopathy, lumbar region; M54.5 Low back pain; Z94.0 Kidney transplant status; N18.6 End stage renal disease; D63.1 Anemia in chronic kidney disease; Z79.82 Long term (current) use of aspirin; Z79.899 Other long term (current) drug therapy; Z79.891 Long term (current) use of opiate analgesic; Z88.1 Allergy status to other antibiotic agents; Z88.8 Allergy status to other drugs, medicaments and biological substances; Z87.891 Personal history of nicotine dependence

== ENCOUNTER → 2016-12-28 | Outpatient (CLI) | payer MEDICARE ==
--- NOTE | 2017-01-11 00:03 | ECWPNPC ---
PATIENT NAME: LILY DENNIS : 1980 GENDER: MALE VISIT DATE: 12/28/2016 DISCHARGE DATE: 12/28/16 1054 VISIT LOCKED DATE TIME: PHYSICIAN: DILSHAD TAYLOR PHYSICIAN PAGER NO: [phone] RESOURCE: DILSHAD TAYLOR REASON FOR APPOINTMENT 1. LOW BACK PAIN HISTORY OF PRESENT ILLNESS HISTORY OF PRESENT ILLNESS: PAIN THE PATIENT DESCRIBES THE PAIN... 36 YEAR OLD MALE PATIENT WITH HISTORY OF CHRONIC LOW BACK PAIN. PATIENT DESCRIBES THE PAIN ACHING, BURNING, SHARP, STABBING, TENDER, THROBBING, SORE, SHOOTING, AND HAVING IT ALL THE TIME WITH A PAIN SCORE OF 8/10. PATIENT IS USING METHADONE, LIDOCAINE FOR THE PAIN. PATIENT STATES THAT THE METHADONE IS HELPING HIM BUT BELIEVES HE NEEDS MORE TABLETS A DAY TO FUNCTION. MR. DENNIS STATES THAT HE HAS AN APPOINTMENT WITH [facility] ON December. PATIENT REPORTS THAT ANY ACTIVITY INCLUDING STAND, WALKING, AND SITTING INCREASES THE PAIN. PATIENT DENIES UNEXPLAINABLE WEIGHT LOSS, FEVER, CHILLS, NEW CHANGES ON HIS URINARY OR BOWEL CONTROL. FALL RISK SCREENING: SCREENING :NO FALLS IN THE PAST YEAR CURRENT MEDICATIONS TAKING GABAPENTIN 100 MG CAPSULE 2 TABS ORALLY FOR PAIN THREE TIMES DAILY MDD6 TAKING PROTONIX 40 MG TABLET DELAYED RELEASE 1 TABLET ORALLY ONCE A DAY TAKING MAY HAVE `` `` ` DIAGNOSIS CODE 729.5 LEFT ANKLE PAIN LEFT ANKLE-BAYRON BRACE TAKING LABETALOL HCL 200 MG TABLET 1 TAB ORALLY TWICE A DAY TAKING FISH OIL 1000 MG CAPSULE 2 CAPS ORALLY TWICE DAILY TAKING CHOLECALCIFEROL 2000 UNIT TABLET 1 TABLET ORALLY DAILY TAKING PREDNISONE 5 MG TABLET 1 TABLET DAILY TAKING MIRALAX _ POWDER 1 CAPFUL ORALLY NEEDED TAKING VIAGRA 100 MG TABLET TAKE 1/2 -1 TABLET BY MOUTH NEEDED TAKING FLONASE 50 MCG/ACT SUSPENSION 1 SPRAY IN EACH NOSTRIL NASALLY ONCE A DAY TAKING COLACE 100 MG CAPSULE 2 CAP ORALLY TWICE A DAY TAKING LIDOCAINE-PRILOCAINE 2.5-2.5 % CREAM EXTERNALLY DIRECTED TAKING BENADRYL ALLERGY 25 MG TABLET 2 TABLET NEEDED ORALLY AT BEDTIME TAKING VITAMIN B COMPLEX - TABLET 1 TAB ORALLY DAILY TAKING ZOFRAN 4 MG TABLET 1 TABLETS ORALLY Q 8 HRS PRN TAKING MYCOPHENOLIC ACID 180MG 2 CAP PO TWICE DAILY TAKING EVEROLIMUS 0.5 MG TABLET 5 TABLETS ORALLY BID TAKING ASPIRIN ADULT LOW DOSE 81 MG TABLET DELAYED RELEASE 1 TABLET ORALLY ONCE A DAY TAKING HYDROMORPHONE HCL 8 MG TABLET 1 TABLET NEEDED ORALLY EVERY 8 HRS PRN PAIN MDD=3 TAKING CLONIDINE HCL 0.1 MG TABLET 1 TABLET AT BEDTIME ORALLY THREE TIMES DAILY NEEDED FOR WITH DRAL SYMPTOMS TAKING TIZANIDINE HCL 4 MG TABLET 1 TABLET NEEDED ORALLY THREE TIMES A DAY TAKING BUPROPION HCL ER (SMOKING DET) 150 MG TABLET EXTENDED RELEASE 12 HOUR 1 TABLET IN THE MORNING ORALLY ONCE A DAY TAKING XANAX 0.5 MG TABLET 1 TABLET ORALLY TID PRN/MDD # 3 TAKING METHADONE HCL 10 MG TABLET TAB ORALLY TAKE 2 TABS Q 8 HRS MDD=6 (7 DAY SUPPLY) DISCONTINUED TACROLIMUS 1 MG CAPSULE DIRECTED ORALLY 3 MGS AM AND 3 MGS PM, NOTES: BEING WEANED OFF BY UR (12/04) MEDICATION LIST REVIEWED AND RECONCILED WITH THE PATIENT PAST MEDICAL HISTORY RENAL TRANSPLANT [facility] 2004--REJECTED 2011; LIVE DONOR KIDNEY TRANSPLANT [facility] 04/03 HTN--SEVERE ANEMIA OF CHRONIC DISEASE CHRONIC LOW BACK PAIN BORDERLINE B12 DEFICIENCY C DIFF COLITIS--ADMITTED [facility] 04/28 CAMPYLOBACTER ENTERITIS, ADMITTED [facility] 10/30 BILAT PNEUMONIA WITH E COLI BACTEREMIA, ADMITTED SN 11/29 ESRD -- DR FERNANDEZ NEUROPATHIC PAIN LEGS---[facility]; [facility] NEURO 11/01 SEVERE SENSORY/MOTOR POLYNEUROPATHY, ? FROM TACROLIMUS; REPEAT NCS 12/04, PN IS MORE SEVERE, ESSENTIALLY DENERVATED IN LEGS ECHO 12/30--EF 65%,LAE 49 MM, MILD AR/MR/PULM HTN ? 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-- 02/01 CHRONIC ANXIETY COMPLICATIONS OF TRANSPLANTED KIDNEY ALLERGIES DOXYCYCLINE: ABNL LFT (AFTER PROLONGED COURSE OF DOXY): SIDE EFFECTS LYRICA: VERTIGO: SIDE EFFECTS CYMBALTA: VERTIGO: SIDE EFFECTS SOCIAL HISTORY GENERAL: TOBACCO USE ARE YOU A:FORMER SMOKER HOW LONG HAS IT BEEN SINCE YOU LAST SMOKED?1-5 YEARS ALCOHOL SCREENING DID YOU HAVE A DRINK CONTAINING ALCOHOL IN THE PAST YEAR?YES HOW OFTEN DID YOU HAVE SIX OR MORE DRINKS ON ONE OCCASION IN THE PAST YEAR?NEVER (0 POINTS) HOW MANY DRINKS DID YOU HAVE ON A TYPICAL DAY WHEN YOU WERE DRINKING IN THE PAST YEAR?3 OR 4 (1 POINT) HOW OFTEN DID YOU HAVE A DRINK CONTAINING ALCOHOL IN THE PAST YEAR?TWO TO FOUR TIMES A MONTH (2 POINTS) POINTS3 INTERPRETATIONNEGATIVE RECREATIONAL DRUG USE DRUG USE?NO CAFFEINE CAFFEINE USE?YES OCCASIONAL COFFEE UATSDIN [id number] NONE LANGUAGE LANGUAGES SPOKEN:ITALIAN LEARNING BARRIERS / SPECIAL NEEDS CHANGE FROM LAST VISIT?NO BARRIERS TO LEARNING?NO HEARING IMPAIRED?NO VISION IMPAIRED?NO COGNITIVELY IMPAIRED?NO READINESS TO LEARN?YES LEARNING PREFERENCES?NO LEARNING CAPABILITIES PRESENT?YES EMOTIONAL BARRIERS?NO 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 PATIENT: ____. ADVANCE DIRECTIVES HEALTH CARE PROXY?YES NAME OF HCP MOM--SIXTO DENNIS CONTACT # FOR HCP [phone] DO YOU HAVE A DNR?NO WOULD YOU LIKE MORE INFORMATION?NO LIVING WILL?YES DO YOU HAVE A COPY WITH YOU?NO POWER OF ENROLLMENT MANAGEMENT COORDINATOR?NO WOULD YOU LIKE MORE INFORMATION?NO DOMESTIC VIOLENCE DO YOU FEEL SAFE IN YOUR ENVIRONMENT?YES REVIEW OF SYSTEMS REVIEWED BY: PROVIDER: DILSHAD TAYLOR MD . CONSTITUTIONAL: ANY CHANGE IN YOUR MEDICAL CONDITION? NO . CHILLS NO . FEVER NO . INFECTION: DO YOU HAVE NEW INFECTIONS? NO . DO YOU HAVE HISTORY OF MRSA? NO . MUSCULOSKELETAL: ANY NEW PATTERNS OF PAIN OR NUMBNESS? PAIN AND BURNING UP PAST KNEE CAPS, RIGHT LEG GOES NUMB WHEN HE SITS LONG PERIODS--THEY BOTH GO NUMB ON AND OFF ALL DAY. . GASTROENTEROLOGY: ANY NEW CHANGE IN BOWEL CONTROL? NO . GENITOURINARY: ANY NEW CHANGE IN BLADDER CONTROL? NO . IS THERE A CHANCE YOU COULD BE ? NO . HEMATOLOGY/LYMPH: DO YOU TAKE ANY BLOOD THINNERS? (FOR EXAMPLE- COUMADIN, PLAVIX, AGGRENOX, PLATEL, PRADAXA, OR XARELTO) NO . WHEN WAS YOUR LAST DOSE? DATE: TIME: . NEUROLOGY: HAVE YOU FALLEN IN THE PAST 6 MONTHS? YES, APPROX. 6-7 TIMES--JUST LOSES HIS BALANCE OR HIS LEGS JUST GIVE OUT . ANY NEW EXTREMITY NUMBNESS OR WEAKNESS? NO . CARDIOLOGY: DO YOU HAVE A PACEMAKER OR DEFIBRILLATOR? NO . RESPIRATORY: HAVE YOU BEEN SICK IN THE PAST WEEK? NO . FEVER NO . FLU LIKE SYMPTOMS? NO . COUGH NO . INTEGUMENTARY: DO YOU HAVE ANY RASHES OR OPEN SORES? NO . ALLERGIC/IMMUNO: ARE YOU ALLERGIC TO SHELLFISH OR IV DYE? NO . ANY NEW ALLERGIES? NO . PSYCHIATRIC: DO YOU HAVE THOUGHTS OF HURTING YOURSELF OR SOMEONE ELSE? NO . ARE YOU ABUSED, NEGLECTED, OR IN AN UNSAFE ENVIRONMENT? NO . ENDOCRINOLOGY: ARE YOU DIABETIC? NO . OTHER: DO YOU NEED ANY PRESCRIPTIONS? NO . IF YES, PLEASE LIST: ____ . ANY NEW PROBLEMS WITH YOUR MEDICATIONS? NO . WHEN DID YOU LAST EAT? ____ . WHEN DID YOU LAST DRINK? ____ . WHAT DID YOU LAST DRINK? ____ . NAME OF PERSON DRIVING YOU HOME? ____ . DO YOU HAVE ANY OTHER QUESTIONS OR CONCERNS NO . VITAL SIGNS WT 230.0 LBS, HT 72 IN, BMI 31.19 INDEX, BP 161/88 MM HG, HR 84 /MIN, RR 16 /MIN, TEMP 97.3 F, OXYGEN SAT % 96%, SAFE IN ENV? (Y/N) Y, NA INITIALS TL 1004, REVIEWED BY: JASON. EXAMINATION : PATIENT IS ALERT O X 3 AND COOPERATIVE. PATIENT HAS DIFFICULTIES WALKING. HE REPORTS SEVERE PAIN AT HIS LEGS. ASSESSMENTS INTERVERTEBRAL DISC DISORDER WITH RADICULOPATHY OF LUMBAR REGION - M51.16 (PRIMARY) TREATMENT INTERVERTEBRAL DISC DISORDER WITH RADICULOPATHY OF LUMBAR REGION NOTES: WE DISCUSSED SEVERAL ISSUES WITH MR. DENNIS'S SHAY MANAGEMENT CASE. AT THIS TIME THE PATIENT WILL CONTINUE TO USE GABAPENTIN AND INCREASE IT INSTRUCTED. PATIENT WILL USE METHADONE FOR THE SOMATIC PAIN BUT WAS ADVISED TO USE TO THE LEAST AMOUNT POSSIBLE. PATIENT WILL BE SEEN AT THE [facility] ON December. PATIENT DENIES ABUSE OF ANY MEDICATION, DENIES USE OF ILLEGAL SUBSTACNES, AND STATES THAT HE IS ONLY USING THE MEDICATION FOR PAIN MANAGEMENT. INSTRUCTIONS WERE GIVEN, QUESTIONS WERE ANSWERED, PATIENT REPORTS UNDERSTANDING AND AGREES WITH THE PLAN. I, WILVER KITCHEN, DOCUMENTED THE ABOVE INFORMATION ACTING A SCRIBE FOR DR. TAYLOR. I HAVE REVIEWED THE ABOVE DOCUMENT, WRITTEN BY WILVER VALLEJO AND I VERIFY THAT IT IS ACCURATE. OTHERS REFILL METHADONE HCL TABLET, 10 MG, TAB, ORALLY, TAKE 2 TABS Q 8 HRS MDD=6 (7 DAY SUPPLY), 21 DAY(S), 42, REFILLS 0 PROCEDURE CODES FA211 ESTABILISHED PATIENT [facility] CHAR[facility] G8427 DOC MEDS VERIFIED W/PT OR RE G1205 PAIN ASSESS POS TOOL F/U PLAN DOC DISPOSITION & COMMUNICATION FOLLOW UP 2 WEEKS ELECTRONICALLY SIGNED BY DILSHAD TAYLOR MD ON 01/09/2017 AT 12:29 PM EST DISCLAIMER : THIS IS A VISIT SUMMARY EXTRACTED FROM THE [employer] CHART. IT IS NOT A COPY OF THE [employer] PROGRESS NOTE. MTDD
== END ==
LOC: M PAIN 10:00
PROVIDERS: ATTEND Anesthesiology
DX: M51.16 Intervertebral disc disorders with radiculopathy, lumbar region (principal); G89.29 Other chronic pain; F41.9 Anxiety disorder, unspecified; I12.0 Hypertensive chronic kidney disease with stage 5 chronic kidney disease or end stage renal disease; E55.9 Vitamin D deficiency, unspecified; N18.6 End stage renal disease; Z79.891 Long term (current) use of opiate analgesic; Z79.899 Other long term (current) drug therapy; Z79.82 Long term (current) use of aspirin; Z88.1 Allergy status to other antibiotic agents; Z88.8 Allergy status to other drugs, medicaments and biological substances; Z94.0 Kidney transplant status

== ENCOUNTER → 2017-01-22 | Outpatient (CLI) | payer MEDICARE | LOC: M PAIN 08:45 | PROVIDERS: ATTEND Anesthesiology | DX: Z53.29 Procedure and treatment not carried out because of patient's decision for other reasons (principal) ==

== ENCOUNTER → 2017-03-08 | Outpatient (CLI) | payer MEDICARE | LOC: M PAIN 11:30 | DX: G89.29 Other chronic pain (principal); M79.604 Pain in right leg; M79.605 Pain in left leg; G62.9 Polyneuropathy, unspecified; I10 Essential (primary) hypertension; F41.9 Anxiety disorder, unspecified; Z79.52 Long term (current) use of systemic steroids; Z79.82 Long term (current) use of aspirin; Z79.899 Other long term (current) drug therapy; Z88.8 Allergy status to other drugs, medicaments and biological substances; Z87.891 Personal history of nicotine dependence; Z94.0 Kidney transplant status | CPT/HCPCS: G0463 ==

== ENCOUNTER → 2017-03-19 | Outpatient (CLI) | payer MEDICARE | LOC: M ADAMS 11:08 | DX: M17.11 Unilateral primary osteoarthritis, right knee (principal) | CPT/HCPCS: 73564 ==

== ENCOUNTER → 2017-03-20 | Outpatient (CLI) | payer MEDICARE | LOC: M PAIN 15:30 | DX: G89.29 Other chronic pain (principal); M51.16 Intervertebral disc disorders with radiculopathy, lumbar region; I10 Essential (primary) hypertension; F41.9 Anxiety disorder, unspecified; F11.10 Opioid abuse, uncomplicated; Z79.899 Other long term (current) drug therapy; Z79.52 Long term (current) use of systemic steroids; Z79.82 Long term (current) use of aspirin; Z88.8 Allergy status to other drugs, medicaments and biological substances; Z87.891 Personal history of nicotine dependence; Z94.0 Kidney transplant status | CPT/HCPCS: G0463 ==

== ENCOUNTER → 2017-05-10 | Outpatient (REF) | payer MEDICARE ==
[2017-05-10 15:03] LABS: BASO % 0.5 % (0.0-1.0); EOS # 0.2 10^3/uL (0.0-0.50); EOS % 3.3 % (0.0-3.0); HEMATOCRIT 36.4 % (42.0-52.0); HEMOGLOBIN 11.8 g/dl (14.0-18.0); IMMATURE GRANULOCYTE % 0.2 % (0-3.0); LYMPH # 1.4 10^3/uL (1.5-4.5); LYMPH % 24.2 % (24.0-44.0); MEAN CORPUSCULAR HEMOGLOBIN 26.8 pg (27.0-33.0); MEAN CORPUSCULAR HGB CONC 32.4 g/dl (32.0-36.5); MEAN CORPUSCULAR VOLUME 82.7 fl (80.0-96.0); MONO # 0.7 10^3/uL (0.0-0.8); MONO % 11.4 % (0.0-5.0); NEUTROPHILS # 3.5 10^3/uL (1.8-7.7); NEUTROPHILS % 60.4 % (36.0-66.0); PLATELET COUNT, AUTOMATED 229 10^3/uL (150-450); RED CELL DISTRIBUTION WIDTH 13.6 % (11.5-14.5); WHITE BLOOD COUNT 5.8 10^3/uL (4.0-10.0)
[2017-05-10 15:25] LABS: PTH INTACT 126.2 PG/ML (18.5-88.0)
[2017-05-10 20:46] LABS: ALBUMIN 3.7 GM/DL (3.2-5.2); ALBUMIN/GLOBULIN RATIO 1.23 (1.00-1.93); ALKALINE PHOSPHATASE 83 U/L (45-117); ALT/SGPT 36 U/L (12-78); ANION GAP 8 MEQ/L (8-16); AST/SGOT 27 U/L (7-37); BILIRUBIN,TOTAL 0.4 MG/DL (0.2-1.0); BLOOD UREA NITROGEN 19 MG/DL (7-18); CALCIUM LEVEL 8.7 MG/DL (8.5-10.1); CARBON DIOXIDE LEVEL 24 MEQ/L (21-32); CHLORIDE LEVEL 109 MEQ/L (98-107); CREATININE FOR GFR 1.55 MG/DL (0.70-1.30); GLUCOSE, FASTING 92 MG/DL (70-100); PHOSPHORUS LEVEL 2.9 MG/DL (2.5-4.9); POTASSIUM SERUM 4.3 MEQ/L (3.5-5.1); SODIUM LEVEL 141 MEQ/L (136-145); TOTAL PROTEIN 6.7 GM/DL (6.4-8.2)
[2017-05-13 14:11] LABS: EVEROLIMUS LEVEL 3.9 ng/mL (3.0-8.0)
[2017-05-13 14:11] LABS: FK 506 (TACROLIMUS) LABCORP None Detected ng/mL (2.0-20.0)
== END ==
LOC: M LABDRWAD 14:47
DX: N18.3 Chronic kidney disease, stage 3 (moderate) (principal); Z94.0 Kidney transplant status; Z79.899 Other long term (current) drug therapy; N39.0 Urinary tract infection, site not specified
CPT/HCPCS: 83735

== ENCOUNTER → 2017-05-31 | Outpatient (REF) | payer MEDICARE, MEDICAID ==
[2017-05-31 11:02] LABS: HEMATOCRIT 38.6 % (42.0-52.0); HEMOGLOBIN 12.7 g/dl (13.5-17.5); MEAN CORPUSCULAR HEMOGLOBIN 27.2 pg (27.0-33.0); MEAN CORPUSCULAR HGB CONC 32.9 g/dl (32.0-36.5); MEAN CORPUSCULAR VOLUME 82.7 fl (80.0-96.0); PLATELET COUNT, AUTOMATED 261 10^3/uL (150-450); RED BLOOD COUNT 4.67 10^6/uL (4.30-6.10); WHITE BLOOD COUNT 5.9 10^3/uL (4.0-10.0)
[2017-05-31 11:12] LABS: ALBUMIN/GLOBULIN RATIO 1.38 (1.00-1.93); ALKALINE PHOSPHATASE 88 U/L (45-117); ALT/SGPT 20 U/L (12-78); ANION GAP 7 MEQ/L (8-16); AST/SGOT 11 U/L (7-37); BILIRUBIN,TOTAL 0.2 MG/DL (0.2-1.0); BLOOD UREA NITROGEN 20 MG/DL (7-18); CALCIUM LEVEL 8.9 MG/DL (8.5-10.1); CARBON DIOXIDE LEVEL 25 MEQ/L (21-32); CHLORIDE LEVEL 108 MEQ/L (98-107); CREATININE FOR GFR 2.12 MG/DL (0.70-1.30); GLOMERULAR FILTRATION RATE 37.6 (>60); GLUCOSE, FASTING 104 MG/DL (70-100); POTASSIUM SERUM 4.8 MEQ/L (3.5-5.1); SODIUM LEVEL 140 MEQ/L (136-145); TOTAL PROTEIN 6.9 GM/DL (6.4-8.2)
[2017-05-31 11:59] LABS: HEPATITIS C VIRUS ABY INDEX 0.1 INDEX (<0.8)
[2017-05-31 12:00] LABS: HIV 1&2 SCREEN CENTAUR NEGATIVE (NEGATIVE)
[2017-05-31 12:03] LABS: HEPATITIS B SURFACE ANTIGEN NEGATIVE (NEGATIVE)
[2017-05-31 12:39] LABS: CHLAMYDIA DNA AMPLIFICATION NEGATIVE (NEGATIVE); GC DNA AMPLIFICATION NEGATIVE (NEGATIVE)
== END ==
LOC: M LABDRAWP 08:18
DX: F11.20 Opioid dependence, uncomplicated (principal)
CPT/HCPCS: 83735; 87340

== ENCOUNTER → 2017-05-31 | Outpatient (REF) | payer MEDICARE, MEDICAID ==
[2017-05-31 10:58] LABS: BASO % 0.5 % (0.0-1.0); EOS # 0.2 10^3/uL (0.0-0.50); EOS % 3.5 % (0.0-3.0); HEMATOCRIT 38.7 % (42.0-52.0); HEMOGLOBIN 12.7 g/dl (13.5-17.5); IMMATURE GRANULOCYTE % 0.3 % (0-3.0); LYMPH # 1.7 10^3/uL (1.5-4.5); LYMPH % 30.4 % (24.0-44.0); MEAN CORPUSCULAR HEMOGLOBIN 27.1 pg (27.0-33.0); MEAN CORPUSCULAR HGB CONC 32.8 g/dl (32.0-36.5); MEAN CORPUSCULAR VOLUME 82.7 fl (80.0-96.0); MONO # 0.6 10^3/uL (0.0-0.8); MONO % 9.8 % (0.0-5.0); NEUTROPHILS # 3.2 10^3/uL (1.8-7.7); NEUTROPHILS % 55.5 % (36.0-66.0); PLATELET COUNT, AUTOMATED 260 10^3/uL (150-450); RED BLOOD COUNT 4.68 10^6/uL (4.30-6.10); WHITE BLOOD COUNT 5.7 10^3/uL (4.0-10.0)
[2017-05-31 11:06] LABS: APPEARANCE, URINE CLEAR (CLEAR); BACTERIA, URINE AUTO NEGATIVE (NEGATIVE); BILIRUBIN, URINE AUTO NEGATIVE (NEGATIVE); BLOOD, URINE BLOOD NEGATIVE (NEGATIVE); COLOR, URINE YELLOW (YELLOW); GLUCOSE, URINE (UA) AUTO NEGATIVE (NEGATIVE); KETONE, URINE AUTO NEGATIVE (NEGATIVE); LEUKOCYTE ESTERASE, URINE AUTO NEGATIVE (NEGATIVE); NITRITE, URINE AUTO NEGATIVE (NEGATIVE); PROTEIN, URINE AUTO NEGATIVE (NEGATIVE); RBC, URINE AUTO 2 /HPF (0-3); SPECIFIC GRAVITY URINE AUTO 1.011 (1.002-1.035); SQUAMOUS EPITHELIAL CELL UR AU 0 /HPF (0-6); UROBILINOGEN, URINE AUTO 0.2 mg/dL (0.0-2.0); WBC, URINE AUTO 1 /HPF (0-3)
[2017-05-31 11:43] LABS: ALBUMIN/GLOBULIN RATIO 1.38 (1.00-1.93); ALKALINE PHOSPHATASE 84 U/L (45-117); ALT/SGPT 19 U/L (12-78); ANION GAP 8 MEQ/L (8-16); AST/SGOT 10 U/L (7-37); BILIRUBIN,TOTAL 0.2 MG/DL (0.2-1.0); BLOOD UREA NITROGEN 20 MG/DL (7-18); CALCIUM LEVEL 8.9 MG/DL (8.5-10.1); CARBON DIOXIDE LEVEL 25 MEQ/L (21-32); CHLORIDE LEVEL 107 MEQ/L (98-107); CREATININE FOR GFR 2.11 MG/DL (0.70-1.30); GLOMERULAR FILTRATION RATE 37.8 (>60); GLUCOSE, FASTING 106 MG/DL (70-100); MAGNESIUM LEVEL 2.1 MG/DL (1.8-2.4); PHOSPHORUS LEVEL 3.7 MG/DL (2.5-4.9); POTASSIUM SERUM 4.8 MEQ/L (3.5-5.1); SODIUM LEVEL 140 MEQ/L (136-145); TOTAL PROTEIN 6.9 GM/DL (6.4-8.2)
[2017-05-31 12:40] LABS: PTH INTACT 93.5 PG/ML (18.5-88.0)
[2017-06-02 14:56] LABS: FK 506 (TACROLIMUS) LABCORP 4.7 ng/mL (2.0-20.0)
== END ==
LOC: M LABDRAWP 08:21
DX: N18.3 Chronic kidney disease, stage 3 (moderate) (principal); Z94.0 Kidney transplant status; Z79.899 Other long term (current) drug therapy; N39.0 Urinary tract infection, site not specified
CPT/HCPCS: 83735

== ENCOUNTER → 2017-06-06 | Outpatient (REF) | payer MEDICARE, MEDICAID ==
[2017-06-06 11:51] LABS: BASO % 0.5 % (0.0-1.0); EOS # 0.2 10^3/uL (0.0-0.50); EOS % 3.3 % (0.0-3.0); HEMATOCRIT 39.5 % (42.0-52.0); HEMOGLOBIN 12.9 g/dl (13.5-17.5); IMMATURE GRANULOCYTE % 0.3 % (0-3.0); LYMPH # 1.6 10^3/uL (1.5-4.5); LYMPH % 24.8 % (24.0-44.0); MEAN CORPUSCULAR HEMOGLOBIN 27.1 pg (27.0-33.0); MEAN CORPUSCULAR HGB CONC 32.7 g/dl (32.0-36.5); MONO # 0.5 10^3/uL (0.0-0.8); MONO % 8.3 % (0.0-5.0); NEUTROPHILS % 62.8 % (36.0-66.0); PLATELET COUNT, AUTOMATED 216 10^3/uL (150-450); RED BLOOD COUNT 4.76 10^6/uL (4.30-6.10); RED CELL DISTRIBUTION WIDTH 14.4 % (11.5-14.5); WHITE BLOOD COUNT 6.4 10^3/uL (4.0-10.0)
[2017-06-06 13:04] LABS: ALBUMIN/GLOBULIN RATIO 1.38 (1.00-1.93); ALKALINE PHOSPHATASE 80 U/L (45-117); ALT/SGPT 16 U/L (12-78); ANION GAP 9 MEQ/L (8-16); AST/SGOT 12 U/L (7-37); BILIRUBIN,TOTAL 0.3 MG/DL (0.2-1.0); BLOOD UREA NITROGEN 29 MG/DL (7-18); CALCIUM LEVEL 8.9 MG/DL (8.5-10.1); CARBON DIOXIDE LEVEL 23 MEQ/L (21-32); CHLORIDE LEVEL 110 MEQ/L (98-107); CREATININE FOR GFR 1.88 MG/DL (0.70-1.30); GLOMERULAR FILTRATION RATE 43.2 (>60); GLUCOSE, FASTING 106 MG/DL (70-100); PHOSPHORUS LEVEL 3.4 MG/DL (2.5-4.9); POTASSIUM SERUM 4.4 MEQ/L (3.5-5.1); SODIUM LEVEL 142 MEQ/L (136-145); TOTAL PROTEIN 6.9 GM/DL (6.4-8.2)
[2017-06-07 10:36] LABS: PTH INTACT 88.1 PG/ML (18.5-88.0)
[2017-06-09 14:09] LABS: FK 506 (TACROLIMUS) LABCORP 5.5 ng/mL (2.0-20.0)
== END ==
LOC: M LABDRAWP 11:40
DX: N18.3 Chronic kidney disease, stage 3 (moderate) (principal); Z79.899 Other long term (current) drug therapy; Z94.0 Kidney transplant status; N39.0 Urinary tract infection, site not specified
CPT/HCPCS: 83735

== ENCOUNTER → 2017-06-21 | Outpatient (REF) | payer MEDICARE, MEDICAID ==
[2017-06-21 13:01] LABS: BASO % 0.5 % (0.0-1.0); EOS # 0.1 10^3/uL (0.0-0.50); EOS % 2.2 % (0.0-3.0); HEMATOCRIT 38.3 % (42.0-52.0); HEMOGLOBIN 12.8 g/dl (13.5-17.5); IMMATURE GRANULOCYTE % 0.2 % (0-3.0); LYMPH # 1.6 10^3/uL (1.5-4.5); LYMPH % 27.4 % (24.0-44.0); MEAN CORPUSCULAR HEMOGLOBIN 27.6 pg (27.0-33.0); MEAN CORPUSCULAR HGB CONC 33.4 g/dl (32.0-36.5); MEAN CORPUSCULAR VOLUME 82.7 fl (80.0-96.0); MONO # 0.6 10^3/uL (0.0-0.8); MONO % 9.6 % (0.0-5.0); NEUTROPHILS # 3.5 10^3/uL (1.8-7.7); NEUTROPHILS % 60.1 % (36.0-66.0); PLATELET COUNT, AUTOMATED 238 10^3/uL (150-450); RED BLOOD COUNT 4.63 10^6/uL (4.30-6.10); RED CELL DISTRIBUTION WIDTH 14.6 % (11.5-14.5); WHITE BLOOD COUNT 5.8 10^3/uL (4.0-10.0)
[2017-06-21 13:30] LABS: ALBUMIN 4.1 GM/DL (3.2-5.2); ALBUMIN/GLOBULIN RATIO 1.32 (1.00-1.93); ALKALINE PHOSPHATASE 85 U/L (45-117); ALT/SGPT 21 U/L (12-78); ANION GAP 8 MEQ/L (8-16); AST/SGOT 23 U/L (7-37); BILIRUBIN,TOTAL 0.3 MG/DL (0.2-1.0); BLOOD UREA NITROGEN 29 MG/DL (7-18); CARBON DIOXIDE LEVEL 27 MEQ/L (21-32); CHLORIDE LEVEL 105 MEQ/L (98-107); CREATININE FOR GFR 1.91 MG/DL (0.70-1.30); GLOMERULAR FILTRATION RATE 42.4 (>60); GLUCOSE, FASTING 93 MG/DL (70-100); PHOSPHORUS LEVEL 3.2 MG/DL (2.5-4.9); POTASSIUM SERUM 4.5 MEQ/L (3.5-5.1); SODIUM LEVEL 140 MEQ/L (136-145); TOTAL PROTEIN 7.2 GM/DL (6.4-8.2)
[2017-06-21 13:31] LABS: PTH INTACT 99.4 PG/ML (18.5-88.0)
[2017-06-24 14:12] LABS: FK 506 (TACROLIMUS) LABCORP 4.6 ng/mL (2.0-20.0)
== END ==
LOC: M LABDRAWC 12:25
DX: N18.3 Chronic kidney disease, stage 3 (moderate) (principal); Z94.0 Kidney transplant status; Z79.899 Other long term (current) drug therapy; N39.0 Urinary tract infection, site not specified
CPT/HCPCS: 83735

== ENCOUNTER → 2017-08-30 | Outpatient (CLI) | payer MEDICARE, MEDICAID | LOC: M WUC 09:44 | DX: S80.12XA Contusion of left lower leg, initial encounter (principal); S90.02XA Contusion of left ankle, initial encounter; S90.32XA Contusion of left foot, initial encounter; X58.XXXA Exposure to other specified factors, initial encounter; Y92.89 Other specified places as the place of occurrence of the external cause; Y93.9 Activity, unspecified; Y99.9 Unspecified external cause status | CPT/HCPCS: 73590 ==

== ENCOUNTER → 2017-09-03 | Outpatient (CLI) | payer MEDICARE, MEDICAID ==
[2017-09-03 12:26] LABS: BASO % 0.4 % (0.0-1.0); EOS # 0.2 10^3/uL (0.0-0.50); EOS % 2.3 % (0.0-3.0); HEMATOCRIT 34.7 % (42.0-52.0); HEMOGLOBIN 11.8 g/dl (13.5-17.5); IMMATURE GRANULOCYTE % 0.4 % (0-3.0); LYMPH # 1.6 10^3/uL (1.5-4.5); LYMPH % 21.9 % (24.0-44.0); MEAN CORPUSCULAR VOLUME 85.3 fl (80.0-96.0); MONO # 0.8 10^3/uL (0.0-0.8); MONO % 10.6 % (0.0-5.0); NEUTROPHILS # 4.8 10^3/uL (1.8-7.7); NEUTROPHILS % 64.4 % (36.0-66.0); PLATELET COUNT, AUTOMATED 227 10^3/uL (150-450); RED BLOOD COUNT 4.07 10^6/uL (4.30-6.10); RED CELL DISTRIBUTION WIDTH 12.9 % (11.5-14.5); WHITE BLOOD COUNT 7.5 10^3/uL (4.0-10.0)
[2017-09-03 12:49] LABS: ALBUMIN 3.8 GM/DL (3.2-5.2); ALBUMIN/GLOBULIN RATIO 1.36 (1.00-1.93); ALKALINE PHOSPHATASE 93 U/L (45-117); ALT/SGPT 17 U/L (12-78); ANION GAP 9 MEQ/L (8-16); AST/SGOT 15 U/L (7-37); BILIRUBIN,TOTAL 0.3 MG/DL (0.2-1.0); BLOOD UREA NITROGEN 24 MG/DL (7-18); CALCIUM LEVEL 8.7 MG/DL (8.5-10.1); CARBON DIOXIDE LEVEL 24 MEQ/L (21-32); CHLORIDE LEVEL 107 MEQ/L (98-107); CREATININE FOR GFR 1.82 MG/DL (0.70-1.30); GLOMERULAR FILTRATION RATE 44.8 (>60); GLUCOSE, FASTING 96 MG/DL (70-100); MAGNESIUM LEVEL 1.9 MG/DL (1.8-2.4); PHOSPHORUS LEVEL 4.2 MG/DL (2.5-4.9); POTASSIUM SERUM 4.5 MEQ/L (3.5-5.1); SODIUM LEVEL 140 MEQ/L (136-145); TOTAL PROTEIN 6.6 GM/DL (6.4-8.2)
[2017-09-06 13:33] LABS: EVEROLIMUS LEVEL None Detected ng/mL (3.0-8.0)
[2017-09-06 13:33] LABS: FK 506 (TACROLIMUS) LABCORP 4.5 ng/mL (2.0-20.0)
== END ==
LOC: M ADAMS 10:02
DX: N18.3 Chronic kidney disease, stage 3 (moderate) (principal); Z51.81 Encounter for therapeutic drug level monitoring; Z79.899 Other long term (current) drug therapy; N39.0 Urinary tract infection, site not specified; Z94.0 Kidney transplant status
CPT/HCPCS: 83735

== ENCOUNTER 2017-09-12 07:37 | Day surgery (SDC) | payer MEDICARE, MEDICAID ==
[2017-09-12] MEDS ORDERED: LIDOCAINE 1% MDV 20ML VIAL SQ (07:45)
[2017-09-12] MEDS ORDERED: LR 1,000 ML IV (07:45)
[2017-09-12] MEDS: LABETALOL 200 MG TAB PO (08:52)
[2017-09-12] MEDS: VANCOMYCIN HCL 1,000 MG, VIAL MATE ADAPTER 1 EACH in D5W 250 ML IV (08:53)
[2017-09-12] MEDS ORDERED: PROPOFOL 200 MG/20 ML VIAL As Ordered (10:20)
[2017-09-12] MEDS ORDERED: LIDOCAINE 2% INJ 100 MG/5 ML SDV (FOR ANES.) As Ordered (10:20)
[2017-09-12] MEDS ORDERED: HYDROCORTISONE 100 MG/2 ML VIAL (J1720) As Ordered (10:20)
[2017-09-12] MEDS ORDERED: MIDAZOLAM INJ 2 MG/2 ML VIAL (J2250) As Ordered (10:20)
[2017-09-12] MEDS ORDERED: fentaNYL 100 MCG/2 ML INJECTION (J3010) As Ordered ×2 (10:20→10:58)
[2017-09-12] MEDS ORDERED: ONDANSETRON 4MG/2ML VIAL (J2405) As Ordered (10:21)
[2017-09-12] MEDS ORDERED: METOCLOPRAMIDE INJ 10MG/2ML VIAL (J2765) As Ordered (10:21)
[2017-09-12] MEDS: ROPIvacaine 0.5% 30 ML INJECTION (J2795 PER 1MG) As Ordered (10:45)
[2017-09-12] MEDS: NORCO, ANEXSIA 5/325MG TABLET (HYDROcodone/ACETAMINOPHEN) PO ×2 (11:10→13:33)
[2017-09-12] MEDS ORDERED: NORCO, ANEXSIA 5/325MG TABLET (HYDROcodone/ACETAMINOPHEN) As Ordered (11:12)
[2017-09-12] MEDS ORDERED: ONDANSETRON 4MG/2ML VIAL (J2405) IV (11:15)
[2017-09-12] MEDS ORDERED: NS 1,000 ML IV ×2 (11:15→11:30)
[2017-09-12] MEDS: fentaNYL 100 MCG/2 ML INJECTION (J3010) IV ×4 (11:20→11:35)
[2017-09-12] MEDS ORDERED: MORPHINE 4 MG/ML 1ML VIAL/SYRINGE (J2270) IV (11:30)
[2017-09-12] MEDS ORDERED: NORCO, ANEXSIA 5/325MG TABLET (HYDROcodone/ACETAMINOPHEN) PO (11:30)
[2017-09-12] MEDS ORDERED: predniSONE 5 MG TAB PO (15:00)
[2017-09-13] MEDS ORDERED: predniSONE 5 MG TAB PO (09:00)
== END 2017-09-12 14:20 | disposition home or self-care (01) ==
LOC: M SDC 07:37
DX: M23.221 Derangement of posterior horn of medial meniscus due to old tear or injury, right knee (principal); S83.289A Other tear of lateral meniscus, current injury, unspecified knee, initial encounter; M67.51 Plica syndrome, right knee; F41.9 Anxiety disorder, unspecified; X58.XXXA Exposure to other specified factors, initial encounter; Y93.89 Activity, other specified; Y92.89 Other specified places as the place of occurrence of the external cause; Y99.8 Other external cause status; R01.1 Cardiac murmur, unspecified; I12.0 Hypertensive chronic kidney disease with stage 5 chronic kidney disease or end stage renal disease; K21.9 Gastro-esophageal reflux disease without esophagitis; F32.9 Major depressive disorder, single episode, unspecified; G99.0 Autonomic neuropathy in diseases classified elsewhere; G89.29 Other chronic pain; N18.5 Chronic kidney disease, stage 5; R56.9 Unspecified convulsions; D63.1 Anemia in chronic kidney disease; F11 Opioid related disorders; Z88.1 Allergy status to other antibiotic agents; Z88.8 Allergy status to other drugs, medicaments and biological substances; Z91.09 Other allergy status, other than to drugs and biological substances; Z79.899 Other long term (current) drug therapy; Z86.14 Personal history of Methicillin resistant Staphylococcus aureus infection; Z94.0 Kidney transplant status; Z87.81 Personal history of (healed) traumatic fracture; Z87.891 Personal history of nicotine dependence
CPT/HCPCS: 29880

== ENCOUNTER 2018-03-21 15:53 | Inpatient (IN) | payer MEDICARE, MEDICAID ==
[~2018-03-21] VITALS: Ht 182.9 cm; Wt 106.5 kg
[~2018-03-21 15:53] MED LIST changes: +DOCQ100C5 PO; +GABA-1171 PO; -GABA-279 PO; +MYCO1TAB PO; +ZOFR4TAB14 PO; -ZOFR4TAB3 PO
--- NOTE | 2018-03-21 16:29 | REP ---
Clinical: Chest pain . Comparison: 02/03/2015 . Findings: The mediastinum is within normal limits for portable technique. Cardiomegaly cannot be excluded. The lung lincoln are clear without acute consolidation, effusion, or pneumothorax. Skeletal structures are intact. Impression: Cardiomegaly cannot be excluded. No acute cardiopulmonary process appreciated. Electronically Signed by Oniel Matthews MD 03/21/2018 04:21 P
[2018-03-21 16:30] LABS: BASO % 0.4 % (0.0-1.0); EOS % 0.5 % (0.0-3.0); HEMATOCRIT 29.5 % (42.0-52.0); HEMOGLOBIN 9.5 g/dl (13.5-17.5); LYMPH # 0.7 10^3/uL (1.5-4.5); MEAN CORPUSCULAR HEMOGLOBIN 28.6 pg (27.0-33.0); MEAN CORPUSCULAR HGB CONC 32.2 g/dl (32.0-36.5); MEAN CORPUSCULAR VOLUME 88.9 fl (80.0-96.0); MONO # 0.3 10^3/uL (0.0-0.8); MONO % 4.2 % (0.0-5.0); NEUTROPHILS # 6.8 10^3/uL (1.8-7.7); NEUTROPHILS % 85.5 % (36.0-66.0); PLATELET COUNT, AUTOMATED 201 10^3/uL (150-450); RED BLOOD COUNT 3.32 10^6/uL (4.30-6.10); WHITE BLOOD COUNT 7.9 10^3/uL (4.0-10.0)
[2018-03-21] MEDS ORDERED: ACETAMINOPHEN 325 MG TAB PO ONE (16:45)
[2018-03-21 16:53] LABS: BILIRUBIN,DIRECT 0.2 MG/DL (0.0-0.2); BILIRUBIN,TOTAL 0.4 MG/DL (0.2-1.0); CALCIUM LEVEL 8.7 MG/DL (8.5-10.1); CREATININE FOR GFR 3.6 MG/DL (0.70-1.30); GLOMERULAR FILTRATION RATE 20.3 (>60); MB/CK RELATIVE INDEX 0.46 (< OR =4); POTASSIUM SERUM 5.1 MEQ/L (3.5-5.1); TOTAL PROTEIN 6.4 GM/DL (6.4-8.2); TROPONIN I 0.02 NG/ML (< 0.10)
[2018-03-21] MEDS ORDERED: LABETALOL HCL 100 MG/20 ML VIAL IV STA (16:59)
[2018-03-21 17:05] LABS: INR 0.98; PROTHROMBIN TIME 13.1 SECONDS (12.1-14.4)
[2018-03-21 17:06] LABS: PARTIAL THROMBOPLASTIN TIME 31.2 SECONDS (25.4-37.6)
[2018-03-21] MEDS ORDERED: LORazepam 2 MG/ML VIAL (J2060) IV STA (17:34)
[2018-03-21] MEDS ORDERED: NS 1,000 ML IV SCH ×2 (17:35→20:00)
[2018-03-21 17:37] LABS: AMPHETAMINES LEVEL URINE NEGATIVE (NEGATIVE); BARBITURATES URINE NEGATIVE (NEGATIVE); BENZODIAZEPINES URINE POSITIVE (NEGATIVE); CANNABINOIDS URINE NEGATIVE (NEGATIVE); COCAINE METABOLITE URINE POSITIVE (NEGATIVE); METHADONE URINE POSITIVE (NEGATIVE); OPIATES URINE NEGATIVE (NEGATIVE); PHENCYCLIDINE URINE NEGATIVE (NEGATIVE)
[2018-03-21] MEDS ORDERED: ASPI1TAB PO (18:01)
[2018-03-21] MEDS ORDERED: VITA100072 PO (18:01)
[2018-03-21] MEDS ORDERED: ACET500T15 PO (18:01)
[2018-03-21] MEDS ORDERED: ONDA4TAB6 PO (18:01)
[2018-03-21] MEDS ORDERED: DOCUSATE SODIUM 100 MG CAP PO PRN (19:45)
[2018-03-21] MEDS ORDERED: hydrALAZINE INJ 20 MG/ML VIAL IV PRN (19:45)
[2018-03-21] MEDS ORDERED: LABETALOL 200 MG TAB PO SCH (21:00)
[2018-03-21 21:30] VITALS: BP 179/86
[2018-03-21] MEDS: VITAMIN D 1,000 INTERNATIONAL UNITS TABLET PO SCH (21:47)
[2018-03-21] MEDS: FAMOTIDINE 20 MG TAB PO SCH (21:47)
--- NOTE | 2018-03-21 21:55 | HPE ---
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 When he came to the emergency room, he was in hypertensive urgency with a blood pressure of 213/110. The patient was given IV labetalol 10 mg and pressure is now 171/97. Subsequently, the patient was found to be in acute kidney injury and rhabdomyolysis and was started on IV fluids and also urine toxicology screen was positive for opiates before, but the patient was given Ativan and also the patient was found to be positive for cocaine, which he denies using. First troponin was negative. 12-lead electrocardiogram (EKG) showed no acute ST-T abnormalities. He will be admitted for further management. PAST MEDICAL HISTORY: 1. Ex heroin abuse, on methadone. 2. 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 ALLERGIES: He has drug allergies to AMITRIPTYLINE, DULOXETINE, GABAPENTIN. FAMILY HISTORY: Noncontributory. SOCIAL HISTORY: The patient denies tobacco, alcohol or illicit drugs. MEDICATIONS: He takes at home: - Tylenol 1000 mg orally every 4 hours as needed - aspirin 81 mg orally daily - cholecalciferol 2000 units orally daily - cyanocobalamin 1000 mcg orally daily - Colace 100 mg orally twice a day - labetalol 200 mg orally twice a day - methadone 160 mg orally daily - mycophenolate 360 mg by mouth twice a day - Zofran 4 mg orally every 6 hours as needed - prednisone 5 mg orally daily - pyridoxine 100 mg orally twice a day - ranitidine one tablet orally twice a day - tacrolimus 3 mg orally twice a day REVIEW OF SYSTEMS: Negative for all ten major systems except what is mentioned in the history of present illness. VITAL SIGNS: Blood pressure 171/97, pulse 68 and regular, respiratory rate 20, temperature is 99.5, oxygen saturation 98% on room air. Head is atraumatic, normocephalic. Neck is supple with no jugular venous distention (JVD). Lungs are clear to auscultation. S1, S2 audible. No murmurs appreciated. Abdomen is soft. Positive bowel sounds. No pedal edema. Skin is intact. Neurologic examination, the patient is awake, alert and oriented times three. LABORATORIES: WBC 7.9, hemoglobin 9.5, hematocrit 29.5, platelets 201,000. Sodium 139, potassium 5.1, chloride 107, CO2 of 22, BUN 41, creatinine 3.6 and baseline is 1.82. Glucose is 103, troponin is 0.02, creatinine kinase is 647, lipase 208. Toxicology screen is positive for methadone, benzodiazepine, and cocaine. IMPRESSION: 1. Chest pain, rule out acute coronary syndrome. 2. Cocaine abuse. 3. Acute kidney injury. 4. Rhabdomyolysis. 5. Hypertensive urgency. PLAN: The patient will be admitted to the progressive care unit (PCU). We will get a second troponin to rule out acute coronary syndrome. Blood pressure has improved very well with one dose of IV labetalol. I am going to put the patient on standing hydralazine 10 mg IV every 6 hours as needed for systolic blood pressure greater than 160. The patient will continue his preadmission medications, which includes labetalol for hypertension. The patient has acute kidney injury, this is likely secondary to volume depletion. The patient complained of diarrhea for 48 hours; however, he did not appear dry. We will give a trial of IV fluids to see if BUN and creatinine come down. If not, this could be possibly cocaine induced acute kidney injury, which hence we will also get nephrology on board. His rhabdomyolysis is very mild and we will hydrate him at normal saline at 150 mL an hour and we will follow CK trends. We will continue to follow his care in the progressive care unit (PCU).
[2018-03-21] MEDS: PYRIDOXINE 50 MG TAB PO SCH (22:33)
[2018-03-21] MEDS: TACROLIMUS 1 MG CAP (J7507) PO SCH (22:34)
[2018-03-22] VITALS (30 sets, daily range): BP systolic 123–200; BP diastolic 58–95
--- NOTE | 2018-03-22 02:07 | IPNPDOC ---
Text Note Date of Service The patient was seen on 03/22/18. NOTE Pt admitted w/ chest pain . He does not admit to cocaine use, but has cocaine on the Utox. He came in with SBP 200's MAP of 130. serial trops have been neg X 2. Pt continues to complain of chest pain radiating to ribs area. Pt is renal transplant pt and with his cocaine use and elevated blood pressure w/ persistent chest pain, he will likely need to have dissection ruled out. Will get a d-dimer level, if +, will likely need to get MRA to rule out. Since he continues to have chest pain in the setting of accelerated BP, will move to pt to the ICU and start nicardipine drip with the goal of decreasing the MAP by 25% in first 24 hrs , at which point the pt can be started on oral meds and drip can be titrated off. VS,Fishbone, I+O VS, Fishbone, I+O Laboratory Tests 03/21/18 16:20 Red Blood Count 3.32 L, Mean Corpuscular Volume 88.9, Mean Corpuscular Hemoglobin 28.6, Mean Corpuscular Hemoglobin Concent 32.2, Red Cell Distribution Width 13.1, Neutrophils (%) (Auto) 85.5 H, Lymphocytes (%) (Auto) 9.0 L, Monocytes (%) (Auto) 4.2, Eosinophils (%) (Auto) 0.5, Basophils (%) (Auto) 0.4, Neutrophils # (Auto) 6.8, Lymphocytes # (Auto) 0.7 L, Monocytes # (Auto) 0.3, Eosinophils # (Auto) 0.0, Basophils # (Auto) 0.0 Vital Signs Date Time Temp Pulse Resp B/P (MAP) Pulse Ox O2 Delivery O2 Flow Rate FiO2 03/22/18 01:30 200/80 (120) 03/22/18 00:00 98.0 66 20 97 03/21/18 21:24 Room Air I&O- Last 24 Hours up to 6 AM 03/22/18 06:00 Intake Total 1000 ml Output Total 0 ml Balance 1000 ml SATURDAY,EYAD MUJICA Mar 22, 2018 02:07
[2018-03-22 02:10] LABS: BASO % 0.5 % (0.0-1.0); EOS # 0.2 10^3/uL (0.0-0.50); HEMATOCRIT 28.3 % (42.0-52.0); HEMOGLOBIN 9.1 g/dl (13.5-17.5); LYMPH # 1.3 10^3/uL (1.5-4.5); LYMPH % 22.4 % (24.0-44.0); MEAN CORPUSCULAR HEMOGLOBIN 28.5 pg (27.0-33.0); MEAN CORPUSCULAR HGB CONC 32.2 g/dl (32.0-36.5); MEAN CORPUSCULAR VOLUME 88.7 fl (80.0-96.0); MONO # 0.5 10^3/uL (0.0-0.8); NEUTROPHILS # 3.8 10^3/uL (1.8-7.7); NEUTROPHILS % 65.8 % (36.0-66.0); PLATELET COUNT, AUTOMATED 185 10^3/uL (150-450); RED BLOOD COUNT 3.19 10^6/uL (4.30-6.10); WHITE BLOOD COUNT 5.8 10^3/uL (4.0-10.0)
[2018-03-22] MEDS: NS 0.45% 1,000 ML IV SCH ×2 (02:30→16:48)
[2018-03-22 02:34] LABS: CREATININE FOR GFR 3.37 MG/DL (0.70-1.30); GLOMERULAR FILTRATION RATE 21.9 (>60); POTASSIUM SERUM 4.5 MEQ/L (3.5-5.1)
[2018-03-22] MEDS: niCARdipine IV 40 MG in APPROPRIATE DILUENT 1 EA IV SCH ×2 (02:41→18:12)
[2018-03-22] MEDS ORDERED: LORazepam 2 MG/ML VIAL (J2060) IV STA (04:21)
[2018-03-22] MEDS: ACETAMINOPHEN 500 MG TAB PO PRN ×3 (05:06→20:11)
--- NOTE | 2018-03-22 06:21 | REPVR ---
EXAM: MR Angiogram Chest EXAM DATE/TIME: 03/22/2018 5:18 AM CLINICAL HISTORY: 38 years old, male; Chest pain; Patient HX: PT cannot have contrast due to renal function and complained of chest pain and tightness; Additional info: Assess for dissection TECHNIQUE: MR angiogram chest without intravenous contrast. MIP reconstructed images were created and reviewed. COMPARISON: CR PORTABLE CHEST X-RAY 03/21/2018 4:02 PM FINDINGS: Limitations: Motion artifact degrades the image quality of several sequences obtained. Aorta: No thoracic aortic dissection, aneurysm, or intramural hematoma is identified. Pulmonary arteries: No definite filling defects are identified in the main or lobar pulmonary arteries to suggest pulmonary embolism. However, motion artifact limits the evaluation of the pulmonary arteries. Lungs: No lung consolidation or mass is identified. Pleural space: No pleural effusion. Heart: No cardiomegaly or pericardial effusion is seen. Mediastinum: No mediastinal mass or hemorrhage is noted. Bones: The bone marrow signal is unremarkable. Soft tissues: There is mild bilateral gynecomastia. IMPRESSION: No acute findings in the chest. No thoracic aortic dissection. Electronically signed by: Anibal Perez On 03/22/2018 06:20:57 AM
--- NOTE | 2018-03-22 08:44 | ECGEPIP ---
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
[2018-03-22] MEDS: TACROLIMUS 1 MG CAP (J7507) PO SCH ×2 (09:43→20:10)
[2018-03-22] MEDS: CYANOCOBALAMIN 500 MCG TAB PO SCH (09:44)
[2018-03-22] MEDS: predniSONE 5 MG TAB PO SCH (09:44)
[2018-03-22] MEDS: ASPIRIN 81 MG ENTERIC TAB PO SCH (09:44)
[2018-03-22] MEDS: PYRIDOXINE 50 MG TAB PO SCH ×2 (09:44→20:11)
[2018-03-22] MEDS: FAMOTIDINE 20 MG TAB PO SCH ×2 (09:44→20:10)
[2018-03-22] MEDS: METHADONE 10 MG TAB (S0109) PO SCH (09:48)
[2018-03-22 10:17] LABS: PERCENT SATURATION 39.1 % (19.7-50.0)
--- NOTE | 2018-03-22 10:44 | IPN ---
DATE: 03/22/2018 Davian is seen in intensive care unit (ICU). He was admitted with hypertensive emergency, chest pain, acute on chronic kidney disease, positive cocaine metabolized in his urine. He has patient of the [facility] but he has not been to see me since August. He has been going to [facility] for drug rehabilitation and methadone maintenance therapy. He says yesterday, he was out trying to deal with all the heavy snowfall with his son, he developed chills and weakness and felt he was going to pass out. He adamantly denies using cocaine, though he has used in the past as recently as July 2017. He did have positive metabolites in his urine. He tells me he has had positive metabolites when he is checked at [facility], which on confirmatory testing, were negative. He has a history of C difficile colitis in the past admitted to [facility] April 2010. He has had chronic diarrhea since for which he has not sought medical care. His past history shows that he had a renal transplant at [facility] in 2004. The kidney was rejected in 2011. He had a living donor transplant in [place] March 2013. He has been followed by Dr. Sanchez's practice in the past for this. History of hypertension, anemia of chronic disease, borderline B12 deficiency, C difficile colitis April 2010, Campylobacter enteritis admitted at [facility] October 2011. Bilateral pneumonia with E Coli bacteremia admitted to [facility] November 2011. Chronic neuropathic pain in his legs, he has been to the pain clinic. 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 Repeat nerve condition study November 2016 showed the neuropathy was more severe. He is essentially denervated in his legs. Pain clinic discharged him after he had a positive urine tox screen for cocaine May 2016. 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 History of cyclic vomiting syndrome from chronic marijuana use January 2015. Had a prolonged QT interval on EKG when he was on high dose methadone from [facility] February 2017 (no EKG sent to me for confirmation). Most recent echocardiogram from 11/28, injection fraction 65%, left atrial enlargement, mild. Aortic regurgitation and mitral regurgitation and pulmonary hypertension. PAST SURGICAL HISTORY: Right kidney transplant November 2004. Living donor transplant 2013. Open reduction, internal fixation (ORIF) right thumb 1999. Esophagogastroduodenoscopy (EGD) with colonoscopy May 2010. Arteriovenous fistula left arm 2011. Left fistula bypass 2011. Cardiac catheterization 2012. ALLERGIES: DOXYCYCLINE causes abnormal liver function tests after prolonged use, LYRICA caused vertigo, CYMBALTA caused vertigo. TACROLIMUS is what made his peripheral neuropathy worse, and high dose METHADONE lead to prolonged QT interval without arrhythmia. PHYSICAL EXAMINATION: He is resting in bed. He looks mildly ill. He is alert, conversant in no distress. Blood pressure 135/61 on a Cardene drip. Pulse 75, respiratory rate 18, 95% oxygen saturation. HEENT: Unremarkable. LUNGS: Clear. HEART: Regular rhythm, no murmur. Chest wall nontender to palpate. ABDOMEN: Soft, diffusely mildly tender. EXTREMITIES: 1+ peripheral edema. LABS: White count 5.8, hemoglobin 9.1, platelets 185. Sodium 140, potassium 4.5, BUN 41, creatinine 3.3, (baseline creatinine around 1.8). Glucose 97. IMPRESSION: 1. Hypertensive emergency with chest pain. Rule out acute coronary syndrome. Cardiac enzymes so far are negative. Troponins negative times two. His MRI of the chest was negative for dissection. His blood pressure was to come down on the Cardene drip. I am waiting for nephrology to see him. The plan will be to transition him to an oral agent probably today after evaluated by cardiology. 2. Acute kidney injury in a patient with a living donor transplanted kidney: I discussed the case with Dr. Tinoco from nephrology who will see him in consultation. He has saline ordered. His antirejection drugs have been continued. 3. History of drug abuse including heroin, marijuana and cocaine with positive cocaine metabolites. He adamantly denies use of cocaine, though cocaine usage does fit the clinical picture. Will do confirmatory testing on urine sample in the lab. Continue his methadone for maintenance therapy. Watch QT interval on the methadone, particularly with the other medications now being added. 4. Chronic pain syndrome with severe polyneuropathy probably from tacrolimus. Continue his methadone, which is what we have been using for pain control as an outpatient. 5. Chronic diarrhea: This has been present since . This has not been reported to the office. Will check stool with a gastrointestinal panel (GI) panel. He has had both campylobacter and C difficile colitis in the past. 6. History of B12 deficiency: Continue him on B12.
[2018-03-22] MEDS: ONDANSETRON 4 MG ORAL DISINTEGRATING TAB (Q0162 PER 1MG) PO PRN (19:07)
[2018-03-22] MEDS: VITAMIN D 1,000 INTERNATIONAL UNITS TABLET PO SCH (20:11)
[2018-03-22] MEDS: LABETALOL 200 MG TAB PO SCH (21:15)
[2018-03-23] VITALS (16 sets, daily range): BP systolic 132–165; BP diastolic 60–88
[2018-03-23 05:01] LABS: HEMATOCRIT 28.2 % (42.0-52.0); HEMOGLOBIN 9.1 g/dl (13.5-17.5); MEAN CORPUSCULAR HEMOGLOBIN 28.3 pg (27.0-33.0); MEAN CORPUSCULAR HGB CONC 32.3 g/dl (32.0-36.5); MEAN CORPUSCULAR VOLUME 87.9 fl (80.0-96.0); PLATELET COUNT, AUTOMATED 191 10^3/uL (150-450); RED BLOOD COUNT 3.21 10^6/uL (4.30-6.10); WHITE BLOOD COUNT 5.2 10^3/uL (4.0-10.0)
[2018-03-23 05:14] LABS: CALCIUM LEVEL 8.1 MG/DL (8.5-10.1); CREATININE FOR GFR 3.32 MG/DL (0.70-1.30); GLOMERULAR FILTRATION RATE 22.3 (>60); POTASSIUM SERUM 4.5 MEQ/L (3.5-5.1)
--- NOTE | 2018-03-23 06:32 | CR ---
DATE OF CONSULTATION: 03/22/2018 REQUESTING PHYSICIAN: Stefan Palacio MD CONSULTING PHYSICIAN: Juan Tinoco MD REASON FOR CONSULTATION: Management of acute kidney injury in this patient with history of renal allograft. CHIEF COMPLAINT: Chest pain and elevated blood pressures. HISTORY OF PRESENT ILLNESS: Davian Lara is a 38-year-old male with a past medical history of end-stage renal disease previously on dialysis. 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 His first renal transplant worked for 8-1/2 years. He got a second renal transplant on April 08, 2013. He follows up with nephrology service at [facility] and with the Renal Transplant Center at the [facility]. He has history of opioid abuse in the past and currently on methadone. He presented to the hospital yesterday with severe central chest pain with hypertensive emergency. Blood pressures were more than 200 systolic. He was given intravenous (IV) labetalol in the emergency room. Urine toxicology came back positive for methadone, benzodiazepines and cocaine. The patient was transferred to intensive care unit (ICU). He was started on nicardipine drip. He was also found to have acute kidney injury with a creatinine of 3.6 on arrival. His baseline creatinine is around 1.9. Nephrology service was called for further help in the management of this patient with acute kidney injury of the renal allograft. I saw and evaluated the patient today morning at the bedside. The patient was still drowsy and sleepy. His blood pressures are better. The patient was actually getting intravenous (IV) fluid hydration because of the acute kidney injury. He denies any chest complaint at this point. PAST MEDICAL HISTORY: The patient has a past medical history of 1. 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 2. History of peripheral neuropathy. 3. Hypertension. 4. A history of polysubstance abuse and use to methadone. PAST SURGICAL HISTORY: Status post renal transplant times two. The first transplant failed after 8-1/2 years. The second transplant was done on April 08, 2013. ALLERGIES: The patient is allergic to AMITRIPTYLINE, DULOXETINE and GABAPENTIN. FAMILY HISTORY: There is a family history of renal disease. SOCIAL HISTORY: The patient denies any smoking. He reports history of opioid abuse in the past and he admits to cocaine abuse in the past but patient is claiming that he has not used cocaine for many years and urine toxicology tests are false positive. REVIEW OF SYSTEMS: CONSTITUTIONAL: He denies any fevers or chills. He reports feeling weak and tired. EYES: He denies any blurry vision, double vision. ENT: Denies any dysphagia, odynophagia or ear discharge. CARDIOVASCULAR: He presented to the hospital with chest pain but he denies chest pain at this time. RESPIRATORY: He denies any shortness of breath and cough. GASTROINTESTINAL (GI): He denies any nausea or vomiting. GENITOURINARY (): He denies any dysuria or hematuria. MUSCULOSKELETAL: He reports peripheral neuropathy. CENTRAL NERVOUS SYSTEM (PRACTICE CLINICIAN): He denies any strokes or seizures. PSYCHIATRIC: He denies any depression or anxiety. ' ENDOCRINE: He denies any hypothyroidism or hyperthyroidism. HEMATOLOGICAL ONCOLOGICAL: He denies any easy bleeding or bruising. SKIN: He denies any rashes or ulcers. All other review of systems is negative. PHYSICAL EXAMINATION: GENERAL: The patient is awake, alert, and oriented times three lying in bed in no apparent distress. VITAL SIGNS: Temperature is 98.2 degrees Fahrenheit, blood pressure 140/65, pulse is 72, respiratory rate of 14, saturating 95% on room air. INPUT/OUTPUT: Urine output recorded since overnight is 1.3 liters. HEAD AND NECK EXAM: Extraocular muscles intact. Pupils equal round and reactive to light. Mucous membranes are moist. Neck is supple. There is no jugular venous distention (JVD). CARDIOVASCULAR: S1, S2 regular rate. No edema of the bilateral lower extremities. RESPIRATORY: Chest is clear to auscultation bilaterally, bilateral equal air entry. No rales or rhonchi. ABDOMEN: The abdomen is soft. Multiple surgical scars in the abdomen. Right lower quadrant nonfunctional renal allograft. Nontender. Left lower quadrant renal allograft nontender with no bruits. MUSCULOSKELETAL: No clubbing or cyanosis. Pulses are 2+. CENTRAL NERVOUS SYSTEM (PRACTICE CLINICIAN): No focal deficits. Power is 5/5 in all extremities. PSYCHIATRIC: The patient is in a depressed mood and he is tearful. LABORATORY REVIEW: Complete blood count (CBC) showed a white blood cell (WBC) of 5.8, hemoglobin 9.1, platelets of 185. D-dimer was 563. Basic metabolic panel (BMP) showed sodium 140, potassium 4.5, chloride 110, bicarbonate 20, BUN 41, creatinine is 3.3. It was 3.6 last night. Iron is 95. TIBC is 243. Transferring saturation is 39. Ferritin is 192. Creatine phosphokinase (CPK) is 416. IMAGING: MRI of the chest was done. It showed no acute findings in the chest. No thoracic aortic dissection. CURRENT INPATIENT MEDICATIONS: The patient was getting - nicardipine intravenous (IV) drip overnight which has been stopped now. - half-normal saline - he was getting intravenous (IV) fluids half-normal saline at 70 mL/hour - Tylenol as needed - aspirin 81 mg daily - vitamin B12 1000 mcg by mouth daily - Colace as needed for constipation - Pepcid 20 mg by mouth twice a day - Ativan 1 mg intravenous (IV) was given in the morning - methadone - he is on methadone 160 mg daily - Zofran as needed - Myfortic 360 mg by mouth twice a day - prednisone 5 mg daily - vitamin B6 100 mg by mouth twice a day - tacrolimus 3 mg by mouth twice a day - vitamin D 2000 units by mouth at bedtime ASSESSMENT: A 38-year-old male with history of polysubstance abuse including cocaine and opioids, a history of renal allograft status with a baseline creatinine of 1.9 admitted at this time with hypertensive emergency after cocaine abuse. PLAN: 1. Acute kidney injury superimposed on chronic kidney disease. The patient has acute kidney injury of the renal allograft after cocaine abuse. His blood pressures are better. He is being hydrated gently. If patient starts eating his diet then intravenous (IV) fluids can be stopped. Renal function is expected to improve. 2. Hypertensive emergency secondary to cocaine abuse. The patient was given intravenous (IV) labetalol. He was also on intravenous (IV) nicardipine overnight. Blood pressures have nicely improved. Nicardipine has been slowly weaned down. The patient uses labetalol 200 mg by mouth twice a day at home. It will be restarted once the blood pressure is above 140. 3. Renal allograft status. Continue current immunosuppression with prednisone 5 mg daily, Myfortic 360 mg by mouth twice a day and tacrolimus 3 mg by mouth twice a day. 4. A history of opioid abuse currently on methadone. Continue current dose of methadone 160 mg by mouth daily. 5. Anemia secondary to chronic kidney disease. Hemoglobin is 9.1. If it stays 9 or below I would give him a dose of Aranesp once his blood pressure improves. Iron levels are adequate. 6. Elevated creatine phosphokinase (CPK) levels. It is most likely secondary to use of cocaine. Creatine phosphokinase (CPK) level is expected to improve over the next 24 to 48 hours. No need of aggressive intravenous (IV) fluid hydration. MTDD
[2018-03-23] MEDS: predniSONE 5 MG TAB PO SCH (08:31)
[2018-03-23] MEDS: ASPIRIN 81 MG ENTERIC TAB PO SCH (08:31)
[2018-03-23] MEDS: CYANOCOBALAMIN 500 MCG TAB PO SCH (08:31)
[2018-03-23] MEDS: FAMOTIDINE 20 MG TAB PO SCH (08:31)
[2018-03-23] MEDS: TACROLIMUS 1 MG CAP (J7507) PO SCH ×2 (08:31→20:20)
[2018-03-23] MEDS: LABETALOL 200 MG TAB PO SCH ×2 (08:32→20:21)
[2018-03-23] MEDS: METHADONE 10 MG TAB (S0109) PO SCH (08:37)
[2018-03-23] MEDS: PYRIDOXINE 50 MG TAB PO SCH ×2 (08:43→20:21)
[2018-03-23] MEDS: ACETAMINOPHEN 500 MG TAB PO PRN (08:48)
[2018-03-23] MEDS ORDERED: INFLUENZA QUADRIVALENT PF VACCINE 0.5ML SYRINGE (90686) IM ONE (09:00)
--- NOTE | 2018-03-23 11:37 | REP ---
Clinical: Abdominal pain. Technique: Axial noncontrast images from the lung bases to the pubic symphysis with coronal and sagittal re-formations. Comparison: 10/13/2014 Findings: Lung bases demonstrate mild bibasilar atelectatic changes (left greater than right). Liver, spleen, pancreas, gallbladder, and bilateral adrenal glands are normal. 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 A relatively normal appearing left pelvic transplanted kidney noted. The enteric system is without obstruction or acute inflammatory process. Normal terminal ileum and appendix identified in the right lower quadrant. Sigmoid diverticula noted without acute diverticulitis. Pelvis demonstrates normal bladder and age appropriate prostate/seminal vesicles. No ascites. No free air. No significant adenopathy. Abdominal aorta without aneurysm. Musculoskeletal structures demonstrate age-related degenerative changes without focal osseous abnormality. Impression: 1. Bibasilar atelectasis. 2. Sigmoid diverticula without acute diverticulitis. 3. Normal appearing left pelvic transplant kidney. 4. No acute abdominopelvic pathology appreciated. Electronically Signed by Oniel Matthews MD 03/23/2018 11:28 A
[2018-03-23] MEDS: SUCRALFATE SUSP 1GM/10ML UD PO SCH ×2 (13:28→17:48)
[2018-03-23] MEDS: PANTOPRAZOLE 40MG TAB (PROTONIX) PO SCH (13:28)
[2018-03-23] MEDS: MYFORTIC 180 MG PO SCH ×2 (13:28→20:23)
[2018-03-23] MEDS: ONDANSETRON 4 MG ORAL DISINTEGRATING TAB (Q0162 PER 1MG) PO PRN ×2 (13:29→20:21)
[2018-03-23] MEDS ORDERED: INFLUENZA QUADRIVALENT PF VACCINE 0.5ML SYRINGE (90686) IM PRN (17:15)
[2018-03-23] MEDS: niCARdipine 20 MG CAP PO SCH ×2 (17:47→20:20)
[2018-03-23] MEDS: VITAMIN D 1,000 INTERNATIONAL UNITS TABLET PO SCH (20:22)
--- NOTE | 2018-03-23 20:27 | IPN ---
DATE: 03/23/2018 Davian's is requesting that patient and family services (PFS) contact [facility] when they are open tomorrow and let them know about Davian's hospitalization and his reason for absence from his sessions that he has been attending regularly with [facility].
--- NOTE | 2018-03-23 21:55 | IPN ---
DATE: 03/23/2018 Davian is seen in intensive care unit (ICU). Renal function is only marginally improved. He has been seen by nephrology. Appreciate their input. His spoke to me in confidence to me today and indicated that he had been using cocaine and that his protestations that his cocaine screen was a false positive are untrue. PHYSICAL EXAMINATION: Afebrile, 166/82. GENERAL APPEARANCE: He is resting. He is lying in bed, but holding his abdomen complaining of diffuse abdominal pain, which apparently has been a chronic problem since January. LUNGS: Clear. HEART: Regular rate and rhythm. ABDOMEN: Soft. Tender diffusely. No peripheral edema. LABORATORY DATA: Complete blood count (CBC) unremarkable. Creatinine is down to 3.3, potassium 4.5. Iron studies suggest anemia of chronic disease. Total iron binding capacity (TIBC) normal. Normal reticulocyte hemoglobin equivalent. IMPRESSION: 1. Hypertensive urgency. He is off his Cardene drip. He is back on his labetalol 200 mg twice a day. Will add some oral nicardipine 40 mg three times a day. I would like to see his systolic pressure down to the 140s. 2. Acute kidney injury superimposed on chronic kidney disease in a patient with a transplanted kidney. Appreciate nephrology's input. He is off intravenous (IV) fluids. Followup labs have been ordered. Avoid nephrotoxic agents. 3. Cocaine use. Waiting confirmatory testing, but per his , he has been using cocaine and likely toxicology test was accurate. 4. Diffuse abdominal pain. Gastrointestinal (GI) panel was negative. CT abdomen and pelvis was ordered. No acute findings were seen. 5. B12 deficiency. Continue his oral B12. 6. Chronic anemia. This is unchanged and stable,
[2018-03-24] VITALS (13 sets, daily range): BP systolic 137–196; BP diastolic 62–88
[2018-03-24] MEDS: SUCRALFATE SUSP 1GM/10ML UD PO SCH ×4 (01:14→17:54)
[2018-03-24 05:26] LABS: HEMATOCRIT 28.2 % (42.0-52.0); HEMOGLOBIN 9.1 g/dl (13.5-17.5); MEAN CORPUSCULAR HEMOGLOBIN 28.5 pg (27.0-33.0); MEAN CORPUSCULAR HGB CONC 32.3 g/dl (32.0-36.5); MEAN CORPUSCULAR VOLUME 88.4 fl (80.0-96.0); PLATELET COUNT, AUTOMATED 176 10^3/uL (150-450); RED BLOOD COUNT 3.19 10^6/uL (4.30-6.10); WHITE BLOOD COUNT 5.3 10^3/uL (4.0-10.0)
[2018-03-24] MEDS: ACETAMINOPHEN 500 MG TAB PO PRN ×2 (05:42→19:42)
[2018-03-24] MEDS: ONDANSETRON 4 MG ORAL DISINTEGRATING TAB (Q0162 PER 1MG) PO PRN ×2 (05:43→22:37)
[2018-03-24 05:50] LABS: CALCIUM LEVEL 8.4 MG/DL (8.5-10.1); CREATININE FOR GFR 3.56 MG/DL (0.70-1.30); GLOMERULAR FILTRATION RATE 20.6 (>60); POTASSIUM SERUM 4.8 MEQ/L (3.5-5.1)
[2018-03-24] MEDS: MYFORTIC 180 MG PO SCH ×2 (08:07→20:55)
[2018-03-24] MEDS: LABETALOL 200 MG TAB PO SCH ×2 (08:08→20:57)
[2018-03-24] MEDS: predniSONE 5 MG TAB PO SCH (08:08)
[2018-03-24] MEDS: PYRIDOXINE 50 MG TAB PO SCH ×2 (08:08→20:56)
[2018-03-24] MEDS: PANTOPRAZOLE 40MG TAB (PROTONIX) PO SCH (08:09)
[2018-03-24] MEDS: TACROLIMUS 1 MG CAP (J7507) PO SCH ×2 (08:09→20:55)
[2018-03-24] MEDS: CYANOCOBALAMIN 500 MCG TAB PO SCH (08:09)
[2018-03-24] MEDS: ASPIRIN 81 MG ENTERIC TAB PO SCH (08:09)
[2018-03-24] MEDS: niCARdipine 20 MG CAP PO SCH ×3 (08:10→20:13)
[2018-03-24] MEDS: METHADONE 10 MG TAB (S0109) PO SCH (08:14)
--- NOTE | 2018-03-24 09:53 | IPNPDOC ---
Subjective Date Seen The patient was seen on 03/24/18. Subjective Chief Complaint/HPI Hypertensive urgency, CP Events since last encounter c/o abdominal pain located to epigastric region. Denies hx of GERD/ulcers. States has months long hx of diarrhea. GI panel negative, was collected on formed stool. States + 25 pounds weight loss since January 2018. + flatus. denies hematemesis. c/o tremors, flushing. denies cocaine use prior to admission. Constitutional: Denies: Chills, Fever, Night Sweats Pulmonary: Denies: Dyspnea, Cough Cardiovascular: Reports: Chest Pain; Denies: Palpitations, Orthopnea, Edema, Lt Headedness Gastrointestinal: Reports: Nausea, Abdominal Pain, Diarrhea; Denies: Vomiting, Constipation, Melena, Hematochezia Genitourinary: Denies: Dysuria, Frequency, Incontinence, Retention Psych: Reports: Other Psych (agitated, tremors) Objective Physical Examination General Exam: Positive: Alert, No Acute Distress Neck Exam: Positive: Supple; Negative: JVD, thyromegaly Chest Exam: Positive: Clear to auscultation, Normal air movement Heart Exam: Positive: Rate Normal, Regular Rhythm, Normal S1, Normal S2; Negative: Murmurs, Rubs Abdomen Exam: Positive: Normal bowel sounds (mildly tympanic), Soft; Negative: Tenderness, Hepatospenomegaly Extremity Exam: Positive: Normal pulses; Negative: Edema Psych Exam: Positive: Anxiety Assessment /Plan Problems (1) Hypertensive urgency Status: Acute Problem Text: Improved BP with current medications. Will transition to PCU. If his pressures continue to rise toward end of dosing interval then consider increase in nicardipine dose to 40 tid. (2) Chest pain Status: Acute (3) Acute renal failure Status: Acute Problem Text: Cr is worse at 3.5. Nephro following and managing. Contacted transplant center of [facility]. They have not had contact with him since 05/2017 and left a message for a provider there to call me back. (4) Abdominal pain Status: Acute Problem Text: epigastric pain. Has been placed on Carafate and Protonix. Advised to stop drinking Gatorade and transition to water due to acidic content in Gatorade. (5) Cocaine abuse Problem Text: withdrawal symptoms: tremors, flushing, nausea. Lorazepam 1 mg po q6hp. monitor. Plan/VTE VTE Prophylaxis Ordered?: Yes (Heparin) VS, I&O, 24H, Fishbone Vital Signs/I&O Vital Signs Date Time Temp Pulse Resp B/P (MAP) Pulse Ox O2 Delivery O2 Flow Rate FiO2 03/24/18 08:14 14 03/24/18 08:10 196/88 03/24/18 08:08 63 03/24/18 08:00 99.1 98 03/22/18 03:00 2.0 03/21/18 21:24 Room Air I&O- Last 24 Hours up to 6 AM 03/24/18 06:00 Intake Total 1260 ml Output Total 2150 ml Balance -890 ml Laboratory Data 24H LABS Laboratory Tests 2 03/24/18 05:04: Nucleated Red Blood Cells % (auto) 0.0, Anion Gap 5L, Glomerular Filtration Rate 20.6L, Blood Urea Nitrogen 33H, Creatinine 3.56H, Sodium Level 140, Potassium Level 4.8, Chloride Level 112H, Carbon Dioxide Level 23, Calcium Level 8.4L CBC/BMP Laboratory Tests 03/24/18 05:04 Red Blood Count 3.19 L, Mean Corpuscular Volume 88.4, Mean Corpuscular Hemoglobin 28.5, Mean Corpuscular Hemoglobin Concent 32.3, Red Cell Distribution Width 13.2, Calcium Level 8.4 L Microbiology Microbiology 03/22/18 Gastrointestinal Tract Panel (PCR) - Final, Complete Emerald Lerbon Mar 24, 2018 09:53 Dank Davenport MD Mar 24, 2018 11:20
[2018-03-24 12:00] LABS: HEPATITIS C VIRUS ABY INDEX 0.1 INDEX (<0.8); HIV 1&2 SCREEN CENTAUR NEGATIVE (NEGATIVE)
[2018-03-24] MEDS: LORazepam 1 MG TAB PO PRN (12:05)
[2018-03-24] MEDS: HEPARIN SOD (PORCINE) 5000 UNITS/ML VIAL SQ SCH ×2 (12:06→20:56)
--- NOTE | 2018-03-24 14:41 | IPN ---
DATE: 03/23/2018 SUBJECTIVE: Patient was seen and examined on the bedside today morning in the intensive care unit. He just came back after getting a cat scan of the abdomen done. He complaints of persistent epigastric pain and decreased appetite. His urine output was otherwise good. There is no significant improvement in his renal function. Creatinine has been fluctuating at 3.3. He denies any nausea or vomiting at this time. OBJECTIVE: VITAL SIGNS: Temperature 98.2 degrees Fahrenheit. Blood pressure 145/65, pulse 68, respiratory rate 14, saturating 96% on room air. INTAKE AND OUTPUT: Urine output recorded as 1.3 liters since overnight. Weight in the bed scale is not available. PHYSICAL EXAMINATION: GENERAL: Patient is awake, alert and oriented times three. Laying in the bed in no apparent distress. HEAD AND NECK EXAM: Extraocular muscle intact. Pupils equally round and reactive to light. Mucous membranes are moist. NECK: Suppler. There is no JVD. CARDIOVASCULAR: S1, S2 regular rate. No edema of the bilateral lower extremities. RESPIRATORY: Chest is clear to auscultation bilaterally. Bilateral equal air entry. No rales or rhonchi. ABDOMEN: Soft, mildly tender to deep palpation in the epigastrium. Old surgical scars were noted. Left lower quadrant adrenal allograft is nontender with no bruits. 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 MUSCULOSKELETAL: No clubbing or cyanosis. Pulses are 2+. ETL PROGRAMMER: No focal deficits. Power is 5/5 in all extremities. LAB REVIEW: CBC showed a WBC 5.2, hemoglobin 9.1, platelets 191. BMP showed a sodium 140, potassium 4.5, chloride 110, bicarbonate 22, BUN 35, creatinine 3.3, calcium 8.1. IMAGING: CT scan of the abdomen and pelvis was done today morning. It showed bibasilar atelectasis, sigmoid diverticular without acute diverticulitis. Normal appearing left pelvic transplant kidney. No acute pathology was noted. CURRENT INPATIENT MEDICATIONS: Patient's medications were all reviewed by me. He is no longer requiring Nicardipine infusion. His Pepcid was stopped today morning. He has been started on Protonix 40 mg by mouth daily. He was also started on Sucralfate 1 gram by mouth every 6 hours for a total of 2 days. ASSESSMENT AND PLAN: 1. Acute kidney injury superimposed on chronic kidney disease. Patient presented with dehydration and hypertensive emergency after cocaine abuse. His blood pressures are better today. He was hydrated yesterday. He is able to take the liquid orally now, no need of IV fluid hydration. Renal function is stable and hopefully expected to improve back to his baseline over the next 24-48 hours. 2. Renal allograft status. Continue current dose of tacrolimus 3 mg by mouth twice, Myfortic 360 mg by mouth twice a day, prednisone 5 mg daily. I am going to check his tacrolimus level tomorrow morning and adjust dose a needed. 3. Hypertension. Patient presented with hypertensive emergency. He needed IV Nicardipine on arrival including IV labetalol. He has been started on home dose of labetalol 200 mg by mouth twice a day. Continue current dose at this point. 4. Anemia secondary to chronic kidney disease. Hemoglobin is slightly suboptimal. However he is not a candidate for Aranesp at this point because of elevated blood pressure. 5. Epigastric pain. Patient got the CT scan done which did not show any pathology. Patient reports history of gastroesophageal reflux in the past as well. I started him on Protonix 40 mg by mouth daily. I have stopped the Pepcid at this point. I have also started him on Carafate to be taken for 2 days. MTDD
[2018-03-24] MEDS: VITAMIN D 1,000 INTERNATIONAL UNITS TABLET PO SCH (20:56)
[2018-03-24] MEDS ORDERED: CALCIUM CARBONATE 500 MG CHEW U/D PO PRN (23:15)
[2018-03-24] MEDS ORDERED: MIRALAX *UNIT DOSE* 17GM PACKET PO PRN (23:15)
[2018-03-25] MEDS: SUCRALFATE SUSP 1GM/10ML UD PO SCH ×2 (00:08→06:44)
[2018-03-25 04:00] VITALS: BP 168/90
[2018-03-25 05:50] LABS: HEMATOCRIT 27.7 % (42.0-52.0); HEMOGLOBIN 8.9 g/dl (13.5-17.5); MEAN CORPUSCULAR HEMOGLOBIN 28.4 pg (27.0-33.0); MEAN CORPUSCULAR HGB CONC 32.1 g/dl (32.0-36.5); MEAN CORPUSCULAR VOLUME 88.5 fl (80.0-96.0); PLATELET COUNT, AUTOMATED 180 10^3/uL (150-450); RED BLOOD COUNT 3.13 10^6/uL (4.30-6.10); WHITE BLOOD COUNT 5.3 10^3/uL (4.0-10.0)
[2018-03-25 06:11] LABS: CALCIUM LEVEL 8.4 MG/DL (8.5-10.1); CREATININE FOR GFR 3.43 MG/DL (0.70-1.30); GLOMERULAR FILTRATION RATE 21.5 (>60)
[2018-03-25] MEDS: LORazepam 1 MG TAB PO PRN (07:07)
[2018-03-25 08:01] LABS: APPEARANCE, URINE CLEAR (CLEAR); BACTERIA, URINE AUTO NEGATIVE (NEGATIVE); BILIRUBIN, URINE AUTO NEGATIVE (NEGATIVE); BLOOD, URINE BLOOD NEGATIVE (NEGATIVE); COLOR, URINE YELLOW (YELLOW); GLUCOSE, URINE (UA) AUTO NEGATIVE (NEGATIVE); KETONE, URINE AUTO NEGATIVE (NEGATIVE); LEUKOCYTE ESTERASE, URINE AUTO NEGATIVE (NEGATIVE); MUCUS, URINE SMALL (NEGATIVE); NITRITE, URINE AUTO NEGATIVE (NEGATIVE); PROTEIN, URINE AUTO 2+ mg/dL (NEGATIVE); RBC, URINE AUTO 3 /HPF (0-3); SPECIFIC GRAVITY URINE AUTO 1.017 (1.002-1.035); SQUAMOUS EPITHELIAL CELL UR AU 0 /HPF (0-6); UROBILINOGEN, URINE AUTO 0.2 mg/dL (0.0-2.0); WBC, URINE AUTO 1 /HPF (0-3)
--- NOTE | 2018-03-25 08:29 | IPN ---
DATE OF SERVICE: 03/24/2018 SUBJECTIVE: Patient was seen and examined at the bedside today morning in the intensive care unit (ICU). Patient reports that he is still having epigastric pain. Protonix and Carafate have not helped much. His blood pressure was also elevated early in the morning today. There is no significant improvement in his renal function. His creatinine has actually bumped up from 3.3 to 3.5 today. OBJECTIVE: Vital signs: Temperature is 98 degrees Fahrenheit, blood pressure 149/84, pulse is 76, respiratory rate of 20, saturating 97% on room air. Intake and output: Urine output recorded as 1.3 liters yesterday, 800 mL so far today since overnight. Weight on the bed scale is 104.5 kg. PHYSICAL EXAMINATION: General: Patient is awake, alert, oriented times three, lying in bed, no apparent distress. Head and neck exam: Extraocular muscles intact. Pupils equally round and reactive to light. Mucous membranes are moist. Neck is supple, there is no jugular venous distention (JVD). Cardiovascular: S1, S2. Regular rate. No murmur, rub or gallop. Respiratory: Chest is clear to auscultation bilaterally. Bilateral equal air entry. No rales or rhonchi. Abdomen is soft, mildly tender to palpation in the epigastrium. Multiple lower surgical scars were noted. Left lower quadrant renal allograft with no tenderness. Bladder is not palpable. Musculoskeletal: No clubbing or cyanosis. Pulses are 2+. Central nervous system: No focal deficit. Power is 5/5 in all extremities. Skin: Patient has multiple skin tattoos. He also has left upper arm AV fistula with positive three line bruit. LAB REVIEW: CBC showed WBC of 5.3, hemoglobin 9.1, platelets of 176. BMP showed sodium 140, potassium 4.8, chloride 112, bicarbonate 23, BUN 33, creatinine is 3.5. Calcium is 8.4. CURRENT INPATIENT MEDICATIONS: Patient's medications were all reviewed by me. He continues to be on labetalol. He has been started on nicardipine 20 mg by mouth three times a day. No other change in the medications today as compared with yesterday. ASSESSMENT AND PLAN: 1. Acute kidney injury superimposed on chronic kidney disease. Patient's creatinine has been fluctuating around 3.3 to 3.5. His baseline creatinine as of August 2017 is 1.8. No recent creatinine is available in the records. I have ordered a urinalysis as well. Patient is actively abusing drugs and I am not sure how compliant he is with his antirejection medications. I am going to do his renal allograft ultrasound as well. 2. Hypertension. Patient came in with hypertensive emergency with cocaine abuse. He initially needed IV nicardipine. Continue oral labetalol. Continue nicardipine orally 20 mg by mouth three times a day. 3. Renal allograft status. Continue current dose of tacrolimus, Myfortic and prednisone. I have ordered a tacrolimus level. Dose will be adjusted once the levels come back. 4. Anemia secondary to chronic kidney disease. Hemoglobin is 9.1 which is stable. No Aranesp at this point because of elevated blood pressures. 5. Epigastric pain. Continue Protonix and Carafate. CT scan was negative. 6. Cocaine abuse. Patient is having withdrawal symptoms. He is current on benzodiazepines by primary team.
[2018-03-25 08:50] VITALS: BP 180/100
[2018-03-25] MEDS: predniSONE 5 MG TAB PO SCH (08:54)
[2018-03-25] MEDS: CYANOCOBALAMIN 500 MCG TAB PO SCH (08:54)
[2018-03-25] MEDS: niCARdipine 20 MG CAP PO SCH (08:54)
[2018-03-25] MEDS: ASPIRIN 81 MG ENTERIC TAB PO SCH (08:54)
[2018-03-25] MEDS: LABETALOL 200 MG TAB PO SCH ×2 (08:55→20:29)
[2018-03-25] MEDS: MYFORTIC 180 MG PO SCH ×2 (08:55→20:29)
[2018-03-25] MEDS: PYRIDOXINE 50 MG TAB PO SCH ×2 (08:55→21:00)
[2018-03-25] MEDS: TACROLIMUS 1 MG CAP (J7507) PO SCH ×2 (08:55→20:28)
[2018-03-25] MEDS: PANTOPRAZOLE 40MG TAB (PROTONIX) PO SCH ×2 (08:55→20:29)
[2018-03-25] MEDS: HEPARIN SOD (PORCINE) 5000 UNITS/ML VIAL SQ SCH ×2 (08:56→20:27)
--- NOTE | 2018-03-25 11:37 | REP ---
RENAL TRANSPLANT ULTRASOUND EXAMINATION: HISTORY: Transplanted left kidney. Hypertension. Sonographic evaluation of the left iliac fossa transplant kidney demonstrates dimensions of 11.2 x 5.2 x 6.2 cm for a calculated volume of 189 mL. No hydronephrosis is seen. No mass or cyst is observed. An old atrophic right renal transplant is noted 6.7 cm in greatest diameter with significant cortical thinning. LEFT TRANSPLANT DOPPLER STUDY: Peak systolic flow in the left iliac artery pre-anastomosis is normal at 136 cm/s. Post anastomotic iliac artery flow velocity is 152 cm/s. At the anastomosis, the main renal artery demonstrates 177 cm/s peak systolic velocity. At mid main renal artery peak systolic flow velocity is 147 cm/s. At the hilum, arterial flow velocity in the transplanted left kidney is 116 cm/s. Main renal artery to external iliac artery flow velocity ratio is normal at the 1.3. Main renal vein flow velocity is normal at 28.5 cm/s. Resistive indices and acceleration times are measured in the upper, mid, and lower third of the transplanted left kidney. These values are normal. IMPRESSION: Normal waveforms and velocities in left renal transplant arteries and left iliac arteries. No morphologic abnormality. Electronically Signed by Reggie Dalton MD 03/25/2018 08:32 P
[2018-03-25] MEDS: METHADONE 10 MG TAB (S0109) PO SCH (11:58)
[2018-03-25] MEDS: NIFEdipine 30 MG XL TAB PO SCH (11:59)
--- NOTE | 2018-03-25 13:39 | IPNPDOC ---
Subjective Date Seen The patient was seen on 03/25/18. Subjective Chief Complaint/HPI abdominal pain and diarrhea Constitutional: Denies: Chills ENT: Denies: Head Aches Skin: Denies: Rash Pulmonary: Denies: Dyspnea, Cough Cardiovascular: Denies: Chest Pain, Palpitations Gastrointestinal: Reports: Diarrhea; Denies: Vomiting, Constipation Genitourinary: Denies: Dysuria, Frequency Hematologic: Denies: Bruising Endocrine: Denies: Polydipsia, Polyuria Psych: Reports: Anxiety (anxious about continued symptoms) Objective Physical Examination General Exam: Positive: Alert, No Acute Distress, Mild Distress Neck Exam: Positive: Supple; Negative: JVD, thyromegaly Chest Exam: Positive: Clear to auscultation, Normal air movement Heart Exam: Positive: Rate Normal, Regular Rhythm, Normal S1, Normal S2; Negative: Murmurs, Rubs Abdomen Exam: Positive: Normal bowel sounds (mildly tympanic), Soft; Negative: Tenderness, Hepatospenomegaly Extremity Exam: Positive: Normal pulses; Negative: Edema Psych Exam: Positive: Anxiety Assessment /Plan Problems (1) Acute renal failure Status: Acute Discussed With: Digital Advertising Specialist, Other Discussed With: Problem Text: 03/25: Dr. Tinoco is concerned about slow turn around for investi gations related to possible rejection and is recommending consideration of transfer to [facility], his transplant center. His creatinine is a little better today at 3.43. Contacted Transfer center and Transplant center, spoke to Dr. Vora and agrees to accept if transfer can be done, based on bed availability. Cr is worse at 3.5. Nephro following and managing. Contacted transplant center of [facility]. They have not had contact with him since 05/2017 and left a message for a provider there to call me back. (2) Hypertensive urgency Status: Acute Problem Text: Improved BP with current medications. Will transition to PCU. If his pressures continue to rise toward end of dosing interval then consider increase in nicardipine dose to 40 tid. (3) Chest pain Status: Resolved (4) Abdominal pain Status: Acute Response to Treatment: Uncontrolled Problem Specific Plan: Consult Specialist Problem Text: 03/25/: patient reports morning diarrhea, 4-5x for about 2 mos. Also reports epigastric pain. Claims 25 lb weight loss since late December associated with his diarrhea. He had colonoscopy in 2014 and symptoms at that time were attributed to narcotic bowel effects. Have consult to GI/ Dr. Orellana Has been placed on Carafate and Protonix. Advised to stop drinking Gatorade and transition to water due to acidic content in Gatorade. (5) Cocaine abuse Problem Text: withdrawal symptoms: tremors, flushing, nausea. Lorazepam 1 mg po q6hp. monitor. Plan/VTE VTE Prophylaxis Ordered?: Yes (Heparin) VS, I&O, 24H, Fishbone Vital Signs/I&O Vital Signs Date Time Temp Pulse Resp B/P (MAP) Pulse Ox O2 Delivery O2 Flow Rate FiO2 03/25/18 12:00 98.6 67 19 99 03/25/18 11:59 160/90 03/22/18 03:00 2.0 03/21/18 21:24 Room Air I&O- Last 24 Hours up to 6 AM 03/25/18 06:00 Intake Total 1630 ml Output Total 0 ml Balance 1630 ml Laboratory Data 24H LABS Laboratory Tests 2 03/25/18 05:35: Nucleated Red Blood Cells % (auto) 0.0, Anion Gap 7L, Glomerular Filtration Rate 21.5L, Blood Urea Nitrogen 30H, Creatinine 3.43H, Sodium Level 141, Potassium Level 5.0, Chloride Level 111H, Carbon Dioxide Level 23, Calcium Level 8.4L CBC/BMP Laboratory Tests 03/25/18 05:35 Red Blood Count 3.13 L, Mean Corpuscular Volume 88.5, Mean Corpuscular Hemoglobin 28.4, Mean Corpuscular Hemoglobin Concent 32.1, Red Cell Distribution Width 13.5, Calcium Level 8.4 L Microbiology Microbiology 03/22/18 Gastrointestinal Tract Panel (PCR) - Final, Complete Dank Davenport MD Mar 25, 2018 13:39
[2018-03-25 13:56] LABS: COMPLEMENT C3 84 MG/DL (90-180); COMPLEMENT C4 19 MG/DL (10-40)
[2018-03-25 16:00] VITALS: BP 156/89
[2018-03-25] MEDS ORDERED: GOLYTELY SOLN 4000 ML BTL PO ONE (16:00)
--- NOTE | 2018-03-25 16:34 | CR ---
DATE OF CONSULTATION: 03/25/2018 This is a 38-year white male who is being seen for family practice for evaluation of abdominal pain, epigastric abdominal pain for a month and diarrhea apparently for a month. The patient relates he usually has the diarrhea at 4:30 to 5:30 in the morning and using this abates. He has no complaints of fevers, night sweats or shaking chills. No melena, hematochezia or bright blood per rectum. 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 He is status post renal transplant and has a previous history of heroin abuse on methadone 60 mg a day. The patient presented to the emergency room with chest pain, nonradiating. The patient was found to be in somewhat of a hypertensive crisis, blood pressure was 213/110. This was treated. The patient had an EKG done in the emergency room which showed no ST elevations. He was admitted for further evaluation. PAST MEDICAL HISTORY: 1. 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 2. Previous history of heroin abuse and on methadone. ALLERGIES: AMITRIPTYLINE, DULOXETINE, and GABAPENTIN. FAMILY HISTORY: Noncontributory to the above problem. SOCIAL HISTORY: Negative for cigarettes or alcohol. Positive past history of illicit drugs. MEDICATIONS: Include: - Tylenol - aspirin - cholecalciferol - cyanocobalamin - Colace - labetalol - methadone 160 mg by mouth daily - mycophenolate - Zofran as needed - prednisone - Zantac twice a day - tacrolimus 3 mg twice a day for his renal transplant REVIEW OF SYSTEMS: Noncontributory. GENERAL: This is a well-developed, well-nourished, white male in no obvious acute distress. Appears stated age. CHEST: Clear to auscultation. CARDIOVASCULAR: Showed a regular rhythm. No murmurs or gallops. Normal physiological split. ABDOMEN: Soft, nontender. No masses, guarding, rebound, or hepatosplenomegaly. Bowel sounds positive. EXTREMITIES: No cyanosis, clubbing or edema. Emma's negative. LABORATORY STUDIES: On admission showed a white count of 7900, hemoglobin and hematocrit of 9.5 and 29.5. Chemistry was normal. The patient's creatinine was 3.32. Coagulation profile was normal. The patient's serology testing is pending. Hepatitis C antibody index was negative. HIV testing was negative. Immune testing C3 was 84, C4 was 19. Toxicology of the urine showed opiates were negative, methadone was positive, barbiturates negative. The patient had benzodiazepines were positive and cocaine was positive. IMAGING STUDIES: Include a chest MRI which was normal. No evidence of any thoracic or aortic dissection seen. Abdominal CT showed bibasilar atelectasis, sigmoid diverticula without acute diverticulitis. Renal ultrasound apparently showed no wave forms and normal function and velocities through his arteries to the kidneys. ANALYSIS: 1. Epigastric pain of unknown etiology. 2. Diarrhea of unknown etiology. At the present time, plan will be to set the patient up for an upper and lower endoscopy to rule out any occult pathology such as gastritis or peptic ulcer disease. We will check him Helicobacter (H) pylori and perform colonoscopy to rule out any inflammation of the colon possibly secondary to his renal issues. Gastrointestinal (GI) panel was negative for any infection, Clostridium (C) difficile or parasites.
[2018-03-25 16:48] LABS: CREATININE,RANDOM URINE 84.1 MG/DL; TOTAL PROTEIN,RANDOM URINE 178.1 MG/DL (0.0-12.0)
[2018-03-25 19:13] VITALS: BP 173/92
[2018-03-25] MEDS: ACETAMINOPHEN 500 MG TAB PO PRN (20:28)
[2018-03-25] MEDS: VITAMIN D 1,000 INTERNATIONAL UNITS TABLET PO SCH (20:28)
[2018-03-26] VITALS (7 sets, daily range): BP systolic 149–190; BP diastolic 82–98
[2018-03-26 00:07] LABS: Cocaine Positive (.); GC Benzoylecgon 6040 ng/mL (Cutoff=150)
[2018-03-26] MEDS ORDERED: BISACODYL 10 MG SUPP PR ONE (05:00)
[2018-03-26 06:08] LABS: HEMATOCRIT 30.1 % (42.0-52.0); HEMOGLOBIN 9.7 g/dl (13.5-17.5); MEAN CORPUSCULAR HEMOGLOBIN 28.8 pg (27.0-33.0); MEAN CORPUSCULAR HGB CONC 32.2 g/dl (32.0-36.5); MEAN CORPUSCULAR VOLUME 89.3 fl (80.0-96.0); PLATELET COUNT, AUTOMATED 176 10^3/uL (150-450); RED BLOOD COUNT 3.37 10^6/uL (4.30-6.10); WHITE BLOOD COUNT 5.6 10^3/uL (4.0-10.0)
[2018-03-26 06:30] LABS: CALCIUM LEVEL 8.7 MG/DL (8.5-10.1); CREATININE FOR GFR 3.09 MG/DL (0.70-1.30); GLOMERULAR FILTRATION RATE 24.2 (>60); POTASSIUM SERUM 4.7 MEQ/L (3.5-5.1)
[2018-03-26] MEDS: HEPARIN SOD (PORCINE) 5000 UNITS/ML VIAL SQ SCH ×2 (09:00→21:17)
--- NOTE | 2018-03-26 10:44 | IPN ---
DATE OF SERVICE: 03/25/2018 SUBJECTIVE: Patient was seen and examined at the bedside today, morning. He just came back after getting his renal allograft ultrasound and Doppler done. Blood pressures are still elevated. He is still complaining of pain in epigastrium. There is no significant improvement with renal function. Creatinine is still fluctuating at around 3.4-3.5. OBJECTIVE: Vital signs: Temperature is 99.4 degrees Fahrenheit, blood pressure 156/89, pulse is 77, respiratory rate of 18, saturating 98% on room air. Intake and output: Urine output recorded as 800 mL yesterday, 400 mL so far today since overnight. Weight on the bed scale was 103.1 kg yesterday. PHYSICAL EXAMINATION: General: Patient is awake, alert, oriented times three, lying in bed, in no apparent distress. Head and neck exam: Extraocular muscles intact. Pupils equally round and reactive to light. Mucous membranes are moist. Neck is supple. There is no jugular venous distention (JVD). Cardiovascular: S1, S2. Regular rate. No murmur, rub or gallop. Respiratory: Chest is clear to auscultation bilaterally. Bilateral equal air entry. No rales or rhonchi. Abdomen is soft. Mild amount of tenderness to deep palpation all over the abdomen, especially in the epigastrium. Multiple old surgical scars are noted. Left lower quadrant renal allograft is nontender and no bruit is heard. Musculoskeletal: No clubbing or cyanosis. Pulses are 2+. Left upper arm arteriovenous (AV) fistula is palpable. Central nervous system (SLING OPERATOR): No focal deficit. Power is 5/5 in all extremities. Skin: He has multiple tattoos. LAB REVIEW: CBC showed WBC of 5.3, hemoglobin 8.9, platelets of 180. Urine protein random is 178. Urine creatinine is 84.1, which roughly translates into 2 gram of protein. BMP done today, morning showed sodium 141, potassium 5, chloride 111, bicarbonate 23, BUN 30, creatinine is 3.4. Calcium is 8.4. Tacrolimus level is pending. Immunology, ALIYA, ANCA, double-stranded DNase, GBM antibodies is all pending. C3 is likely low at 84. C4 is normal. CMV and EBV serology is pending. IMAGING: Renal allograft ultrasound and Doppler were found within normal limits. CURRENT INPATIENT MEDICATIONS: Patient's medications were all reviewed by me. His nicardipine was stopped. He has been started on Procardia 60 mg by mouth daily. He continues to be on labetalol 200 mg by mouth twice a day. ASSESSMENT AND PLAN: 1. Acute kidney injury superimposed on chronic kidney disease. Patient's renal function is not improving. Creatinine has been fluctuating at 3.3-3.5. Initially it was attributed to hypertensive urgency and use of cocaine. His baseline creatinine is around 1.9-2. Patient has about 2 grams of protein on the spot urine protein creatinine ratio, autotomy and serology including tacrolimus level is pending. Patient needs to be transferred to [facility] for further evaluation, including any need of renal allograft biopsy. This is patient's second transplant. 2. Renal allograft status. Continue current dose of Myfortic, tacrolimus, and prednisone. I cannot adjust his tacrolimus dose because tacrolimus level is sent out and it will not be back until the end of this week. 3. Hypertension. Patient came in with hypertensive emergency after cocaine abuse. He is currently on labetalol. He was on nicardipine for the ease of administration. I have stopped nicardipine tablet and started him on nifedipine XL 60 mg by mouth daily. Further adjustment of dose will be done tomorrow morning. 4. Anemia secondary to chronic kidney disease. Hemoglobin levels are low. He will not be given erythropoietin stimulating agent (PAOLA) until his blood pressures improve. 5. Epigastric pain and burning. He has been started on Tums tablets. Continue current dose of Protonix 40 mg by mouth twice a day. 6. Cocaine abuse. Patient is getting lorazepam as needed for withdrawal symptoms. 7. Chronic opioid dependence and history of opioid abuse. He is currently on methadone. Rest of the management is as primary team. DISPOSITION: Patient needs to be transferred to [facility] for further evaluation of his renal allograft, acute renal failure. [facility]
[2018-03-26] MEDS ORDERED: LIDOCAINE 2% INJ 100 MG/5 ML SDV (FOR ANES.) As Ordered ONE (11:30)
[2018-03-26] MEDS ORDERED: PROPOFOL 200 MG/20 ML VIAL As Ordered ONE ×2 (11:30→12:12)
--- NOTE | 2018-03-26 11:52 | ROOR ---
Patient Name: Davian Lara Procedure Date: 03/26/2018 11:26 AM Date of : 1980 Age: 38 Room: [facility] Gender: Male Note Status: Finalized Procedure: Upper Endoscopy + Biopsies Indications: Epigastric abdominal pain Providers: Yash Orellana MD Referring MD: Stefan Palacio MD Requesting Provider: Medicines: Monitored Anesthesia Care Complications: No immediate complications. Procedure: Pre-Anesthesia Assessment: - The heart rate, respiratory rate, oxygen saturations, blood pressure, adequacy of pulmonary ventilation, and response to care were monitored throughout the procedure. The Endoscope was introduced through the mouth, and advanced to the second part of duodenum. The upper GI endoscopy was accomplished without difficulty. The patient tolerated the procedure well. Findings: The Z-line was regular and was found 40 cm from the incisors. Localized moderate inflammation characterized by erosions, erythema, granularity and aphthous ulcerations was found in the gastric antrum. Biopsies were taken with a cold forceps for Helicobacter pylori testing. The exam of the duodenum was otherwise normal. The exam was otherwise without abnormality. Impression: - Z-line regular, 40 cm from the incisors. - Mucosal changes suspicious for gastritis. Biopsied. - The examination was otherwise normal. Recommendation: - Patient has a contact number available for emergencies. The signs and symptoms of potential delayed complications were discussed with the patient. Return to normal activities tomorrow. Written discharge instructions were provided to the patient. - Resume previous diet. - Discharge patient to home. - Follow an antireflux regimen. - Continue present medications. - Await pathology results. - Telephone GI clinic for pathology results in 1 week. - Return to referring physician. - The findings and recommendations were discussed with the patient's family. Yash Orellana MD Yash Orellana MD 03/26/2018 11:52:33 AM This report has been signed electronically. Number of Addenda: 0 Note Initiated On: 03/26/2018 11:26 AM Estimated Blood Loss: Estimated blood loss: none.
--- NOTE | 2018-03-26 12:14 | ROOR ---
Patient Name: Davian Lara Procedure Date: 03/26/2018 11:27 AM Date of : 1980 Age: 38 Room: [facility] Gender: Male Note Status: Finalized Procedure: Total Colonoscopy to Cecum + Bx. To r/o Microscopic Colitis Indications: Clinically significant diarrhea of unexplained origin Providers: Yash Orellana MD Referring MD: Stefan Palacio MD Requesting Provider: Medicines: Monitored Anesthesia Care Complications: No immediate complications. Procedure: Pre-Anesthesia Assessment: - The heart rate, respiratory rate, oxygen saturations, blood pressure, adequacy of pulmonary ventilation, and response to care were monitored throughout the procedure. The Colonoscope was introduced through the anus and advanced to the cecum, identified by appendiceal orifice and ileocecal valve. The colonoscopy was performed without difficulty. The patient tolerated the procedure well. The quality of the bowel preparation was fair. Findings: The perianal and digital rectal examinations were normal. Non-bleeding internal hemorrhoids were found during retroflexion. The hemorrhoids were small and Grade I (internal hemorrhoids that do not prolapse). No other significant abnormalities were identified in a careful examination of the remainder of the colon. Biopsies for histology were taken with a cold forceps from the ascending colon, transverse colon and descending colon for evaluation of microscopic colitis. The exam was otherwise without abnormality on direct and retroflexion views. Impression: - Preparation of the colon was fair. - Non-bleeding internal hemorrhoids. - The examination was otherwise normal on direct and retroflexion views. - Biopsies were taken with a cold forceps from the ascending colon, transverse colon and descending colon for evaluation of microscopic colitis. - The exam was otherwise normal to the cecum. Recommendation: - Patient has a contact number available for emergencies. The signs and symptoms of potential delayed complications were discussed with the patient. Return to normal activities tomorrow. Written discharge instructions were provided to the patient. - High fiber diet. - Continue present medications. - Await pathology results. - Telephone GI clinic for pathology results in 1 week. - Return to referring physician. - The findings and recommendations were discussed with the patient's family. - [facility] to [facility] for [facility] care. Yash Orellana MD Yash Orellana MD 03/26/2018 12:14:18 PM This report has been signed electronically. Number of Addenda: 0 Note Initiated On: 03/26/2018 11:27 AM Estimated Blood Loss: Estimated blood loss: none.
[2018-03-26] MEDS: predniSONE 5 MG TAB PO SCH (12:57)
[2018-03-26] MEDS: PYRIDOXINE 50 MG TAB PO SCH ×2 (12:58→21:17)
[2018-03-26] MEDS: CYANOCOBALAMIN 500 MCG TAB PO SCH (12:59)
[2018-03-26] MEDS: NIFEdipine 30 MG XL TAB PO SCH (12:59)
[2018-03-26] MEDS: TACROLIMUS 1 MG CAP (J7507) PO SCH ×2 (12:59→21:17)
[2018-03-26] MEDS: PANTOPRAZOLE 40MG TAB (PROTONIX) PO SCH ×2 (13:00→21:18)
[2018-03-26] MEDS: LABETALOL 200 MG TAB PO SCH ×2 (13:00→21:19)
[2018-03-26] MEDS: ASPIRIN 81 MG ENTERIC TAB PO SCH (13:01)
[2018-03-26] MEDS: MYFORTIC 180 MG PO SCH ×2 (13:02→21:19)
[2018-03-26] MEDS: METHADONE 10 MG TAB (S0109) PO SCH (13:03)
--- NOTE | 2018-03-26 13:35 | IPNPDOC ---
Subjective Date Seen The patient was seen on 03/26/18. Subjective Chief Complaint/HPI abdominal pain Constitutional: Denies: Chills ENT: Denies: Head Aches Pulmonary: Denies: Dyspnea, Cough Cardiovascular: Denies: Chest Pain, Palpitations, Orthopnea Gastrointestinal: Reports: Abdominal Pain; Denies: Nausea Neurological: Denies: Weakness, Numbness Objective Physical Examination General Exam: Positive: Alert, No Acute Distress, Mild Distress Neck Exam: Positive: Supple; Negative: JVD, thyromegaly Chest Exam: Positive: Clear to auscultation, Normal air movement Heart Exam: Positive: Rate Normal, Regular Rhythm, Normal S1, Normal S2; Negative: Murmurs, Rubs Abdomen Exam: Positive: Normal bowel sounds (mildly tympanic), Soft, Tenderness (epigastric. 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 Communicated multiple times with [facility] yesterday. They have him on their list for transfer but due to long list waiting for transfer, probability is low that he will be transferred, but they do want to see him as outpatient when he is discharged. 03/25: Dr. Tinoco is concerned about slow turn around for investigations related to possible rejection and is recommending consideration of transfer to [facility], his transplant center. His creatinine is a little better today at 3.43. Contacted Transfer center and Transplant center, spoke to Dr. Vora and agrees to accept if transfer can be done, based on bed availability. Cr is worse at 3.5. Nephro following and managing. Contacted transplant center of [facility]. They have not had contact with him since 05/2017 and left a message for a provider there to call me back. (2) Hypertensive urgency Status: Acute Problem Text: 03/26 pressures back up. will adjust dose of nifedipine to 90mg daily. Improved BP with current medications. Will transition to PCU. If his pressures continue to rise toward end of dosing interval then consider increase in rai ardipine dose to 40 tid. (3) Chest pain Status: Resolved (4) Abdominal pain Status: Acute Response to Treatment: Uncontrolled Problem Specific Plan: Consult Specialist Problem Text: 03/26: per Dr. Orellana antral ulcers noted. no bleeding. Colon looked normal. 03/25/: patient reports morning diarrhea, 4-5x for about 2 mos. Also reports epigastric pain. Claims 25 lb weight loss since late December associated with his diarrhea. Per outpatient record, he weight 224 lb in August 2017 (current weight as [id number]=364.3 lb). He had colonoscopy in 2014 and symptoms at that time were attributed to narcotic bowel effects. Have consult to GI/ Dr. Orellana Has been placed on Carafate and Protonix. Advised to stop drinking Gatorade and transition to water due to acidic content in Gatorade. (5) Cocaine abuse Status: Chronic Problem Text: withdrawal symptoms: tremors, flushing, nausea. Lorazepam 1 mg po q6hp. monitor. Plan/VTE VTE Prophylaxis Ordered?: Yes (Heparin) Plan Anticipated Discharge: Home (Once reasonable BP control can be demonstrated.) VS, I&O, 24H, [facility] Vital Signs/I&O Vital Signs Date Time Temp Pulse Resp B/P (MAP) Pulse Ox O2 Delivery O2 Flow Rate FiO2 03/26/18 13:03 18 03/26/18 13:00 75 190/98 03/26/18 12:59 98.8 98 03/26/18 12:20 Room Air 03/22/18 03:00 2.0 I&O- Last 24 Hours up to 6 AM 03/26/18 06:00 Intake Total 3940 ml Output Total 750 ml Balance 3190 ml Laboratory Data 24H LABS Laboratory Tests 2 03/25/18 16:07: Urine Random Creatinine 84.1, Urine Random Total Protein 178.1H 03/26/18 05:54: Nucleated Red Blood Cells % (auto) 0.0, Anion Gap 8, Glomerular Filtration Rate 24.2L, Blood Urea Nitrogen 29H, Creatinine 3.09H, Sodium Level 143, Potassium Level 4.7, Chloride Level 111H, Carbon Dioxide Level 24, Calcium Level 8.7 CBC/BMP Laboratory Tests 03/26/18 05:54 Red Blood Count 3.37 L, Mean Corpuscular Volume 89.3, Mean Corpuscular Hemoglobin 28.8, Mean Corpuscular Hemoglobin Concent 32.2, Red Cell Distribution Width 13.2, Calcium Level 8.7 Microbiology Microbiology 03/22/18 Gastrointestinal Tract Panel (PCR) - Final, Complete Dank Davenport MD Mar 26, 2018 13:35
[2018-03-26] MEDS ORDERED: NIFEdipine 30 MG XL TAB PO ONE (14:00)
[2018-03-26] MEDS: SUCRALFATE 1 GM TAB PO SCH ×3 (14:26→21:17)
--- NOTE | 2018-03-26 15:56 | REP ---
Abdomen series: Three views: History: Abdominal pain. Comparison images of the abdomen are from February 14, 2015. Findings: Multiple intrarenal calculi are again noted bilaterally. These are rather numerous. The largest is in the lower pole on the right measuring 9 mm in greatest diameter. There are surgical clips in the left lower quadrant of the abdomen. There is no evidence of free air. Air and small quantity of liquid are seen in the colon. No evidence of obstruction. No significant air fluid level is seen on upright radiograph. Psoas margins and flank stripes are intact. Impression: Bilateral intrarenal nephrolithiasis. Clips in the left lower quadrant. Air and some fluid in the colon. No other significant abdominal abnormality. Electronically Signed by Reggie Dalton MD 03/26/2018 07:20 P
[2018-03-26] MEDS: ACETAMINOPHEN 500 MG TAB PO PRN ×2 (16:44→21:33)
[2018-03-26] MEDS: VITAMIN D 1,000 INTERNATIONAL UNITS TABLET PO SCH (21:18)
[2018-03-26] MEDS: LORazepam 1 MG TAB PO PRN (21:32)
[2018-03-27 04:00] VITALS: BP_SYST 141
[2018-03-27] MEDS: ACETAMINOPHEN 500 MG TAB PO PRN ×2 (04:26→19:59)
[2018-03-27 05:37] LABS: HEMATOCRIT 26.6 % (42.0-52.0); HEMOGLOBIN 8.5 g/dl (13.5-17.5); MEAN CORPUSCULAR HEMOGLOBIN 28.5 pg (27.0-33.0); MEAN CORPUSCULAR VOLUME 89.3 fl (80.0-96.0); PLATELET COUNT, AUTOMATED 157 10^3/uL (150-450); RED BLOOD COUNT 2.98 10^6/uL (4.30-6.10)
[2018-03-27 05:52] LABS: CALCIUM LEVEL 8.1 MG/DL (8.5-10.1); CREATININE FOR GFR 3.12 MG/DL (0.70-1.30); GLOMERULAR FILTRATION RATE 23.9 (>60); POTASSIUM SERUM 4.9 MEQ/L (3.5-5.1)
[2018-03-27 08:00] VITALS: BP 170/93
[2018-03-27] MEDS: MYFORTIC 180 MG PO SCH ×2 (08:52→20:56)
[2018-03-27] MEDS: HEPARIN SOD (PORCINE) 5000 UNITS/ML VIAL SQ SCH ×2 (08:53→20:55)
[2018-03-27] MEDS: TACROLIMUS 1 MG CAP (J7507) PO SCH ×2 (08:53→20:55)
[2018-03-27] MEDS: PANTOPRAZOLE 40MG TAB (PROTONIX) PO SCH ×2 (08:53→20:56)
[2018-03-27] MEDS: SUCRALFATE 1 GM TAB PO SCH ×4 (08:54→20:56)
[2018-03-27] MEDS: predniSONE 5 MG TAB PO SCH (08:54)
[2018-03-27] MEDS: ASPIRIN 81 MG ENTERIC TAB PO SCH (08:54)
[2018-03-27] MEDS: CYANOCOBALAMIN 500 MCG TAB PO SCH (08:55)
[2018-03-27] MEDS: LABETALOL 200 MG TAB PO SCH (08:55)
[2018-03-27] MEDS: METHADONE 10 MG TAB (S0109) PO SCH (08:57)
[2018-03-27] MEDS ORDERED: NIFEdipine 30 MG XL TAB PO SCH (09:00)
[2018-03-27] MEDS: PYRIDOXINE 50 MG TAB PO SCH ×2 (09:00→22:10)
[2018-03-27] MEDS ORDERED: LABETALOL 100 MG TAB PO ONE (09:30)
--- NOTE | 2018-03-27 10:14 | IPN ---
DATE OF SERVICE: 03/26/2018 SUBJECTIVE: Patient is going to have an endoscopy done by gastroenterology today. His renal function is slightly improving. Creatinine is down to 3 today. His tacrolimus level came back at 11.3. His blood pressures are better controlled today. OBJECTIVE: Vital Signs: Temperature is 99.4 degrees Fahrenheit, blood pressure 156/84, pulse is 83, respiratory rate of 20, saturating 97% on room air. Intake and Output: Urine output is not recorded. Weight on the bed scale is 106.5 kg. PHYSICAL EXAMINATION: General: Patient is awake, alert, oriented times three, laying in bed, in no apparent distress. Head and Neck Exam: Extraocular muscles intact. Pupils equally round and reactive to light. Mucous membranes are moist. Neck is supple. There is no jugular venous distention (JVD). Cardiovascular: S1 and S2. Regular rate. No murmur, rub or gallop. Respiratory: Chest is clear to auscultation bilaterally. Abdomen is soft. Mildly tender to deep palpation. Musculoskeletal: No clubbing or cyanosis. Pulses are 2+. Left upper arm arteriovenous (AV) fistula is palpable. Central Nervous System (AUTOMOTIVE GLASS INSTALLER): No focal deficit. Power is 5/5 in all extremities. LAB REVIEW: CBC showed WBC of 5.6, hemoglobin 9.7, platelets 176. BMP showed sodium 143, potassium 4.7, chloride 111, bicarbonate 24, BUN 29, creatinine is 3. Calcium is 8.7. CURRENT INPATIENT MEDICATIONS: Patient's medications were all reviewed by me. The nifedipine dose has been increased to 60 mg daily. ASSESSMENT AND PLAN: 1. Acute kidney injury superimposed on chronic kidney disease. Patient was admitted with acute kidney injury along with hypertensive urgency secondary to cocaine abuse. His creatinine is slowly trending down. It is down to 3. His baseline creatinine is 1.9 to 2. No other significant etiology is known at this point. 2. Hypertension with chronic kidney disease. Patient's blood pressure is still uncontrolled. He continues to be on labetalol 200 mg by mouth twice a day. The primary team has already increased his nifedipine to 90 mg daily. If needed, his labetalol dose would also be increased to 300 mg by mouth twice a day tomorrow morning. 3. Renal allograft status. Continue current dose of prednisone and Myfortic. His tacrolimus level came back as 11.3. I have decreased his tacrolimus dose to 3 mg in the morning and 2 mg in the evening. 4. Epigastric pain and burning. Patient continues to be on Tums tablets and Protonix. GI is on board. He is going to get endoscopy done. 5. Anemia secondary to chronic kidney disease. His hemoglobin is 9.7, which is optimal. I would avoid giving him Aranesp with high blood pressures. 6. Cocaine abuse. Confirmatory test for cocaine has come back positive. His girlfriend also told me that patient has been abusing cocaine recently. 7. Chronic opioid dependence. The patient is currently on methadone. 8. Disposition. Patient got his transfer to [facility]. They have accepted him for transfer, but a bed is not available at this point.
[2018-03-27] MEDS: LORazepam 1 MG TAB PO PRN ×2 (10:33→20:55)
--- NOTE | 2018-03-27 11:16 | REP ---
Acute abdominal series: Three views. History: Post procedure, continued abdominal pain. Question free air. Comparison study is from March 26, 2018. Findings: Upright chest radiograph shows cardiomegaly. No evidence of free subdiaphragmatic air is seen. EKG electrodes are seen. No infiltrate is noted. Pulmonary vasculature is not increased. Supine and erect views of the abdomen show calcifications overlying the kidneys bilaterally and clips in the left mid abdomen. No significant air fluid level is seen. Air and stool are noted in the nondilated colon. No small bowel dilation is seen. Impression: No acute abnormality. Bilateral nephrolithiasis. Cardiomegaly. Electronically Signed by Reggie Dalton MD 03/27/2018 10:19 P
[2018-03-27 11:58] VITALS: BP 143/78
[2018-03-27] MEDS: DICYCLOMINE 10 MG CAP PO SCH ×2 (14:57→17:54)
--- NOTE | 2018-03-27 17:45 | IPNPDOC ---
Subjective Date Seen The patient was seen on 03/27/18. Subjective Chief Complaint/HPI Patient reports still having some abdominal pain and discomfort. The pain is epigastric. Still able to tolerate oral intake, no nausea or vomiting. Denies diarrhea. No headache at this time. Constitutional: Denies: Chills, Fever ENT: Denies: Head Aches Objective Physical Examination General Exam: Positive: Alert, No Acute Distress Neck Exam: Positive: Supple; Negative: JVD, thyromegaly Chest Exam: Positive: Clear to auscultation; Negative: Rhonchi, Wheezing Heart Exam: Positive: Rate Normal, Regular Rhythm, Normal S1, Normal S2; Negative: Murmurs, Rubs Abdomen Exam: Positive: Normal bowel sounds (mildly tympanic), Soft, Tenderness (epigastric. 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 Transplant center called this morning and do not have a spot for patient. Will call back later for transfer. Was informed of his bump in creatinine. Still urinating at this time. Dr. Michelle was informed. Tacrolimus was reduced, repeat lab pending. 03/26 Creatinine improving. Communicated multiple times with [facility] yesterday. They have him on their list for transfer but due to long list waiting for transfer, probability is low that he will be transferred, but they do want to see him as outpatient when he is discharged. 03/25: Dr. Tinoco is concerned about slow turn around for investigations related to possible rejection and is recommending consideration of transfer to [facility], his transplant center. His creatinine is a little better today at 3.43. Contacted Transfer center and Transplant center, spoke to Dr. Vora and agrees to accept if transfer can be done, based on bed availability. Cr is worse at 3.5. Nephro following and managing. Contacted transplant center of [facility]. They have not had contact with him since 05/2017 and left a message for a provider there to call me back. (2) Hypertensive urgency Status: Acute Problem Text: 03/27 Labetalol was added 300 mg BID. Monitor BP. 03/26 pressures back up. will adjust dose of nifedipine to 90mg daily. Improved BP with current medications. Will transition to PCU. If his pressures continue to rise toward end of dosing interval then consider increase in nicardipine dose to 40 tid. (3) Abdominal pain Status: Acute Response to Treatment: Uncontrolled Problem Specific Plan: Consult Specialist Problem Text: 03/27 Patient still having epigastric pain at this time. Starting patient on Bentyl to assist with abdominal pain. 03/26: per Dr. Orellana antral ulcers noted. no bleeding. Colon looked normal. 03/25/: patient reports morning diarrhea, 4-5x for about 2 mos. Also reports epigastric pain. Claims 25 lb weight loss since late December associated with his diarrhea. Per outpatient record, he weight 224 lb in August 2017 (current weight as adxjezuf=405.3 lb). He had colonoscopy in 2014 and symptoms at that time were attributed to narcotic bowel effects. Have consult to GI/ Dr. Orellana Has been placed on Carafate and Protonix. Advised to stop drinking Gatorade and transition to water due to acidic content in Gatorade. (4) Cocaine abuse Status: Chronic Problem Text: Continue to monitor. Repeat lab pending. withdrawal symptoms: tremors, flushing, nausea. Lorazepam 1 mg po q6hp. monitor. Plan/VTE VTE Prophylaxis Ordered?: Yes (Heparin) Plan Anticipated Discharge: Home (Once reasonable BP control can be demonstrated.) VS, I&O, 24H, Fishbone Vital Signs/I&O Vital Signs Date Time Temp Pulse Resp B/P (MAP) Pulse Ox O2 Delivery O2 Flow Rate FiO2 03/27/18 11:58 98.0 71 20 143/78 (99) 98 03/26/18 12:20 Room Air 03/22/18 03:00 2.0 I&O- Last 24 Hours up to 6 AM 03/27/18 06:00 Intake Total 0 ml Output Total 0 ml Balance 0 ml Laboratory Data 24H LABS Laboratory Tests 2 03/26/18 22:09: 03/27/18 05:16: Nucleated Red Blood Cells % (auto) 0.0, Anion Gap 7L, Glomerular Filtration Rate 23.9L, Blood Urea Nitrogen 30H, Creatinine 3.12H, Sodium Level 142, Potassium Level 4.9, Chloride Level 110H, Carbon Dioxide Level 25, Calcium Level 8.1L, Lipase 122 CBC/BMP Laboratory Tests 03/27/18 05:16 Red Blood Count 2.98 L, Mean Corpuscular Volume 89.3, Mean Corpuscular Hemoglobin 28.5, Mean Corpuscular Hemoglobin Concent 32.0, Red Cell Distribution Width 13.3, Calcium Level 8.1 L Microbiology Microbiology 03/22/18 Gastrointestinal Tract Panel (PCR) - Final, Complete GME ATTESTATION GME ATTESTATION My faculty preceptor for this patient encounter was physically present during the encounter and was fully available. All aspects of the patient interview, examination, medical decision making process, and medical care plan development were reviewed and approved by the faculty preceptor. The faculty preceptor is aware and concurs with the plan as stated in the body of this note and will attest to such by his/her cosignature. JAREN REZA DO Mar 27, 2018 15:13
[2018-03-27 18:56] VITALS: BP 156/86
[2018-03-27 20:56] VITALS: BP 156/86
[2018-03-27] MEDS: VITAMIN D 1,000 INTERNATIONAL UNITS TABLET PO SCH (20:56)
[2018-03-27] MEDS ORDERED: LABETALOL 100 MG TAB PO SCH (21:00)
[2018-03-27 22:51] VITALS: BP 171/81
[2018-03-28 00:07] LABS: ANCA-ATYPICAL <1:20 titer (Neg:<1:20); ANTI DOUBLE STRAND-DNA AB 1 IU/mL (0-9); ANTINUCLEAR ANTIBODIES DIRECT Negative (Negative); CYTOMEGALOVIRUS IgG ANTIBODY <0.60 U/mL (0.00-0.59); CYTOMEGALOVIRUS IgM ANTIBODY <30.0 AU/mL (0.0-29.9); CYTOPLASMIC NEUTROP AB ANCA-C <1:20 titer (Neg:<1:20); EBV VIRAL CAPSID AG IgM <36.0 U/mL (0.0-35.9); PERINUCLEAR AB ANCA-P <1:20 titer (Neg:<1:20)
--- NOTE | 2018-03-28 08:43 | IPN ---
DATE: 03/27/2018 SUBJECTIVE: Patient is seen and examined at the bedside today morning. He is afebrile, hemodynamically stable. Blood pressures are still high. Creatinine has been fluctuating at 3 to 3.1. He denies any other active complaints. OBJECTIVE: VITAL SIGNS: Temperature is 98.7 degrees Fahrenheit, blood pressure 171/81, pulse is 80, respiratory rate of 20, saturating 97% on room air. INTAKE AND OUTPUT: Urine output recorded as 500 mL so far today since overnight. Weight on the bed scale is not available. PHYSICAL EXAMINATION: GENERAL: Patient is awake, alert, oriented times three, laying in bed, in no apparent distress. HEAD AND NECK EXAM: Extraocular muscles intact. Pupils equally round and reactive to light. Mucous membranes are moist. Neck is supple. There is no jugular venous distention (JVD). CARDIOVASCULAR: S1 and S2. Regular rate. No murmur, rub or gallop. No edema of the bilateral lower extremities. RESPIRATORY: Chest is clear to auscultation bilaterally. Bilateral equal air entry. No rales or rhonchi. ABDOMEN: Soft. Mildly tender to deep palpation in the epigastrium. MUSCULOSKELETAL: No clubbing or cyanosis. Pulses are 2+. NEWSCAST PRODUCER: No focal deficit. Power is 5/5 in all extremities. LAB REVIEW: CBC showed WBC of 5, hemoglobin 8.5, platelets 157. BMP showed sodium 142, potassium 4.9, chloride 110, bicarbonate 25, BUN 30, creatinine is 3.1. IMAGING: An x-ray of the abdomen was done again today which showed no acute abnormality. CURRENT INPATIENT MEDICATIONS: Patient's medications were all reviewed by me. His labetalol dose was increased to 300 mg by mouth twice a day and his nifedipine was already increased to 90 mg by mouth daily yesterday, and he is currently on tacrolimus 3 mg in the morning and 2 mg in the evening. No other medication changes noted. ASSESSMENT AND PLAN: 1. Acute kidney injury superimposed on chronic kidney disease stage III. The patient's baseline creatinine is around 2. His creatinine is still fluctuating at 3 to 3.1. Autoimmune serology is pending. Tacrolimus dose was adjusted yesterday. 2. Renal allograft status. His tacrolimus levels were high. Current dose is 3 mg in the morning and 2 mg in the evening. Repeat levels have been sent. Dose will be adjusted according to the levels. 3. Hypertension with chronic kidney disease. Patient came in with cocaine abuse and elevated blood pressures. Blood pressures are still high. His medication is being adjusted. Labetalol is 300 mg twice a day now and nifedipine is 90 mg daily. 4. Epigastric pain. EGD showed gastritis. Patient is currently on Tums and Protonix. The rest of the management is as per GI recommendations. 5. Management of immunosuppression. Continue current dose of prednisone 5 mg daily. Continue current dose of Myfortic. Continue tacrolimus 3 mg in the morning and 2 mg in the evening. 6. Anemia secondary to chronic kidney disease. His hemoglobin is 8.5, which is still suboptimal. Patient will be given a dose of Aranesp when his blood pressure is optimized.
--- NOTE | 2018-03-28 17:22 | DSES ---
DATE OF ADMISSION: 03/21/2018 DATE OF DISCHARGE: REASON FOR ADMISSION: Mr. Lara was admitted March 21 with chest discomfort, some dyspnea, precordial chest discomfort. He has a history of previous heroin abuse and methadone. On admission he tested positive for cocaine in his urine screen. He denied use, but his girlfriend affirmed that he had been using. He is status post two renal transplants and has been lost to followup by his transplant service at the [facility] since May, when he was last seen there. Dr. Vora primarily is his attending at that facility. When last seen there, his creatinines ranged in the 1.7-1.9 range. On presentation to this facility, his creatinine was 3.6 with blood pressure 171/97, pulse 68, respiratory rate 28, temperature 99.5. There was no evidence for infectious etiology. He received of a variety of medications to improve his blood pressure, including nicardipine intravenous (IV), labetalol by mouth, labetalol IV. Gradually settled on a combination of nifedipine at 90 mg daily with labetalol 300 mg by mouth twice a day. Blood pressure had improved to 135/74 at 10 a.m. on the day of discharge, 171/81 immediately before discharge, and transfer to [facility]. Because his creatinine was higher and there was some concern related to possible rejection, the animal groomer seeing him in consultation, Dr. Tinoco, suggested transfer to [facility]. [facility] ([facility]) Center was contacted on Saturday regarding this concern, and he was put on their list to bring him over for further evaluation at their center. Additional problem patient was dealing with during his hospital stay was abdominal pain. He reported diarrhea multiple times a day in the mornings; however, none was documented during his hospital stay. He underwent upper and lower endoscopy by Dr. Orellana. Upper endoscopy did show small aphthous ulcers in the antrum. He did have evidence of chronic gastritis by biopsy. No evidence of Helicobacter (H) pylori. Colon biopsy was also done, and colonoscopy showed no microscopic colitis in the colon with a fair prep was viewed to be normal. He continued to have abdominal pain postprocedure. An abdominal plain film and upright was done times two with no evidence of free air. He continued to complain of central epigastric abdominal discomfort. Laboratory data showed persistent anemia with hemoglobin around 8.5, and the day of discharge chemistries did not show elevated lipase. Creatinine came down gradually to a wilfredo of 3.09 on March 26 but was creeping up to 3.12 on March 27. Bed became available at [facility], and patient transferred there for further evaluation and treatment. PROCEDURES DURING HOSPITAL STAY: Upper and lower endoscopy. CONSULTATIONS: Dr. Tinoco of nephrology service and Dr. Orellana of gastrointestinal (GI) service. DISCHARGE DIAGNOSES: 1. Acute on chronic renal failure. 2. History of transplant. 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 3. Accelerated hypertension. 4. Chronic abdominal pain. Etiology remains obscure. 5. Anemia attributed to chronic renal disease. 6. Chest pain on presentation, resolved without specific diagnosis. Troponin remained negative. IMAGING STUDIES DONE DURING HOSPITAL STAY: Included chest MRI done primarily to evaluate the vascular structure, and no abnormality identified other than mild bilateral gynecomastia. Chest x-ray demonstrated minimal cardiomegaly. Renal ultrasound done of the transplanted kidney and the residual organs showed normal waveforms, velocities, and left renal transplant arteries and left iliac artery. There an old atrophic right renal transplant. Abdomen x-ray showed bilateral intrarenal nephrolithiasis and clips. There was air in the colon but no free air and no obstructive pattern identified, and repeat film the following day similar findings. CONDITION ON DISCHARGE: Alert, cooperative. Continued abdominal discomfort. Transferred to [facility] for further evaluation of his multiple problems, and transfer recommendation of Dr. Tinoco, Dr. Vora at [facility] being the accepting attending. During his hospital stay he also had laboratory analysis of the tacrolimus level. It was at 11.3 on March 24. Subsequently his tacrolimus dose was decreased from 3 mg twice a day to 3 mg morning and 2 mg in the evening.
[2018-03-29 09:17] LABS: Cocaine Positive (.); GC Benzoylecgon 580 ng/mL (Cutoff=150)
== END 2018-03-27 22:51 | disposition short-term general hospital (02) | DRG 683 ==
LOC: EDBD 15:53 → M ED 15:53 → M ED INP 19:32 → M PCU 21:39 → M ICU 03-22 02:22 → M PCU 03-24 21:32
PROVIDERS: ADMIT Internal Medicine; ATTEND Family Medicine
PROC: 0DBL8ZX Excision of Transverse Colon, Via Natural or Artificial Opening Endoscopic, Diagnostic (ICD-10-PCS; 2018-03-26)
PROC: 0DBK8ZX Excision of Ascending Colon, Via Natural or Artificial Opening Endoscopic, Diagnostic (ICD-10-PCS; 2018-03-26)
PROC: 0DB68ZX Excision of Stomach, Via Natural or Artificial Opening Endoscopic, Diagnostic (ICD-10-PCS; 2018-03-26)
PROC: 0DBM8ZX Excision of Descending Colon, Via Natural or Artificial Opening Endoscopic, Diagnostic (ICD-10-PCS; principal; 2018-03-26 11:05)
DX: N17.9 Acute kidney failure, unspecified (principal); Z94.0 Kidney transplant status; M62.82 Rhabdomyolysis; I16.0 Hypertensive urgency; R10.9 Unspecified abdominal pain; D63.1 Anemia in chronic kidney disease; N18.9 Chronic kidney disease, unspecified; F14.90 Cocaine use, unspecified, uncomplicated; R07.2 Precordial pain; Z88.8 Allergy status to other drugs, medicaments and biological substances; Z79.899 Other long term (current) drug therapy; Z79.82 Long term (current) use of aspirin; G89.29 Other chronic pain; G62.9 Polyneuropathy, unspecified; E53.8 Deficiency of other specified B group vitamins; K29.50 Unspecified chronic gastritis without bleeding; K64.8 Other hemorrhoids; K64.4 Residual hemorrhoidal skin tags

== ENCOUNTER → 2018-04-03 | Outpatient (REF) | payer MEDICARE, MEDICAID ==
[~2018-04-03] MED LIST changes: +ACET500T15 PO; +ASPI1TAB PO; +ONDA4TAB6 PO; +VITA100072 PO
[2018-04-03 10:38] LABS: BASO % 0.3 % (0.0-1.0); EOS # 0.2 10^3/uL (0.0-0.50); EOS % 1.9 % (0.0-3.0); HEMATOCRIT 23.6 % (42.0-52.0); HEMOGLOBIN 7.7 g/dl (13.5-17.5); LYMPH # 1.6 10^3/uL (1.5-4.5); LYMPH % 20.5 % (24.0-44.0); MEAN CORPUSCULAR HEMOGLOBIN 28.6 pg (27.0-33.0); MEAN CORPUSCULAR HGB CONC 32.6 g/dl (32.0-36.5); MEAN CORPUSCULAR VOLUME 87.7 fl (80.0-96.0); MONO # 0.7 10^3/uL (0.0-0.8); MONO % 9.4 % (0.0-5.0); NEUTROPHILS # 5.2 10^3/uL (1.8-7.7); NEUTROPHILS % 67.6 % (36.0-66.0); PLATELET COUNT, AUTOMATED 150 10^3/uL (150-450); RED BLOOD COUNT 2.69 10^6/uL (4.30-6.10); WHITE BLOOD COUNT 7.7 10^3/uL (4.0-10.0)
[2018-04-03 10:44] LABS: ALBUMIN 3.6 GM/DL (3.2-5.2); BILIRUBIN,TOTAL 0.2 MG/DL (0.2-1.0); CALCIUM LEVEL 8.3 MG/DL (8.5-10.1); CREATININE FOR GFR 3.62 MG/DL (0.70-1.30); GLOMERULAR FILTRATION RATE 20.2 (>60); MAGNESIUM LEVEL 1.8 MG/DL (1.8-2.4); PHOSPHORUS LEVEL 4.7 MG/DL (2.5-4.9); POTASSIUM SERUM 4.6 MEQ/L (3.5-5.1); TOTAL PROTEIN 6.1 GM/DL (6.4-8.2)
[2018-04-03 10:51] LABS: APPEARANCE, URINE CLEAR (CLEAR); BACTERIA, URINE AUTO NEGATIVE (NEGATIVE); BILIRUBIN, URINE AUTO NEGATIVE (NEGATIVE); BLOOD, URINE BLOOD 1+ (NEGATIVE); COLOR, URINE YELLOW (YELLOW); GLUCOSE, URINE (UA) AUTO NEGATIVE (NEGATIVE); KETONE, URINE AUTO NEGATIVE (NEGATIVE); LEUKOCYTE ESTERASE, URINE AUTO NEGATIVE (NEGATIVE); NITRITE, URINE AUTO NEGATIVE (NEGATIVE); PROTEIN, URINE AUTO 3+ mg/dL (NEGATIVE); RBC, URINE AUTO 3 /HPF (0-3); SPECIFIC GRAVITY URINE AUTO 1.011 (1.002-1.035); SQUAMOUS EPITHELIAL CELL UR AU 0 /HPF (0-6); UROBILINOGEN, URINE AUTO 0.2 mg/dL (0.0-2.0); WBC, URINE AUTO 0 /HPF (0-3)
[2018-04-07 08:06] LABS: BK VIRUS BLOOD PCR1 Negative copies/mL (Negative)
== END ==
LOC: M LABDRAW1 08:52
PROVIDERS: ATTEND Internal Medicine Nephrology
DX: N18.4 Chronic kidney disease, stage 4 (severe) (principal); Z79.899 Other long term (current) drug therapy; N39.0 Urinary tract infection, site not specified; Z94.0 Kidney transplant status

== ENCOUNTER → 2018-05-22 | Outpatient (REF) | payer MEDICARE, MEDICAID ==
[~2018-05-22] MED LIST changes: -/LABE20TA OR; -/PANT40TA OR; -/RANI15TA PO; -ACET50TA PO; +CLON0.3D2 TOP; -CLON3PA TOP; +CYMB1CAP4 OR; -DOCU10ELUD PO; +DOCU5LIQ PO; -DULO20CA OR; +LABE1TAB11 OR; +LABE200T13 PO; +MAPA500T17 PO; +OXYC-517 PO; -OXYCO5TA PO; +PROT1TAB2 OR; +RANI1TAB17 PO; +RENV2TAB PO; -SEVE80TAB PO
[2018-05-22 13:45] LABS: BASO % 0.4 % (0.0-1.0); EOS # 0.1 10^3/uL (0.0-0.50); EOS % 2.2 % (0.0-3.0); HEMATOCRIT 23.4 % (42.0-52.0); HEMOGLOBIN 7.3 g/dl (13.5-17.5); LYMPH # 1.1 10^3/uL (1.5-4.5); LYMPH % 22.3 % (24.0-44.0); MEAN CORPUSCULAR HEMOGLOBIN 27.7 pg (27.0-33.0); MEAN CORPUSCULAR HGB CONC 31.2 g/dl (32.0-36.5); MEAN CORPUSCULAR VOLUME 88.6 fl (80.0-96.0); MONO # 0.5 10^3/uL (0.0-0.8); NEUTROPHILS # 3.3 10^3/uL (1.8-7.7); NEUTROPHILS % 65.7 % (36.0-66.0); PLATELET COUNT, AUTOMATED 202 10^3/uL (150-450); RED BLOOD COUNT 2.64 10^6/uL (4.30-6.10)
[2018-05-22 13:52] LABS: ALBUMIN 3.5 GM/DL (3.2-5.2); BILIRUBIN,TOTAL 0.4 MG/DL (0.2-1.0); CALCIUM LEVEL 8.4 MG/DL (8.5-10.1); CREATININE FOR GFR 4.05 MG/DL (0.70-1.30); GLOMERULAR FILTRATION RATE 17.7 (>60); PHOSPHORUS LEVEL 4.6 MG/DL (2.5-4.9); POTASSIUM SERUM 4.5 MEQ/L (3.5-5.1); TOTAL PROTEIN 5.8 GM/DL (6.4-8.2)
[2018-05-22 14:27] LABS: APPEARANCE, URINE CLEAR (CLEAR); BACTERIA, URINE AUTO NEGATIVE (NEGATIVE); BILIRUBIN, URINE AUTO NEGATIVE (NEGATIVE); BLOOD, URINE BLOOD 1+ (NEGATIVE); COLOR, URINE YELLOW (YELLOW); GLUCOSE, URINE (UA) AUTO NEGATIVE (NEGATIVE); KETONE, URINE AUTO NEGATIVE (NEGATIVE); LEUKOCYTE ESTERASE, URINE AUTO NEGATIVE (NEGATIVE); NITRITE, URINE AUTO NEGATIVE (NEGATIVE); PROTEIN, URINE AUTO 3+ mg/dL (NEGATIVE); RBC, URINE AUTO 6 /HPF (0-3); SQUAMOUS EPITHELIAL CELL UR AU 0 /HPF (0-6); UROBILINOGEN, URINE AUTO 0.2 mg/dL (0.0-2.0); WBC, URINE AUTO 0 /HPF (0-3)
[2018-05-25 15:50] LABS: BK VIRUS BLOOD PCR1 Negative copies/mL (Negative)
== END ==
LOC: M LABDRAW1 12:28
PROVIDERS: ATTEND Internal Medicine Nephrology
DX: N18.4 Chronic kidney disease, stage 4 (severe) (principal); Z94.0 Kidney transplant status; Z79.899 Other long term (current) drug therapy; N39.0 Urinary tract infection, site not specified

== ENCOUNTER → 2018-05-22 | Outpatient (REF) | payer MEDICARE, MEDICAID ==
[~2018-05-22] MED LIST changes: -ASPI1TAB PO; +ASPI81TA26 PO; -B6 N1TAB PO; +VITA100018 PO; -VITA100072 PO; +VITA100T14 PO
[2018-05-22 14:24] LABS: HEMATOCRIT 23.5 % (42.0-52.0); HEMOGLOBIN 7.3 g/dl (13.5-17.5); MEAN CORPUSCULAR HEMOGLOBIN 27.2 pg (27.0-33.0); MEAN CORPUSCULAR HGB CONC 31.1 g/dl (32.0-36.5); MEAN CORPUSCULAR VOLUME 87.7 fl (80.0-96.0); PLATELET COUNT, AUTOMATED 198 10^3/uL (150-450); RED BLOOD COUNT 2.68 10^6/uL (4.30-6.10); WHITE BLOOD COUNT 4.9 10^3/uL (4.0-10.0)
[2018-05-22 14:30] LABS: ALBUMIN 3.5 GM/DL (3.2-5.2); ALT/SGPT 18 U/L (12-78); BILIRUBIN,TOTAL 0.3 MG/DL (0.2-1.0); BLOOD UREA NITROGEN 29 MG/DL (7-18); CALCIUM LEVEL 8.5 MG/DL (8.5-10.1); CARBON DIOXIDE LEVEL 20 MEQ/L (21-32); CHLORIDE LEVEL 112 MEQ/L (98-107); CREATININE FOR GFR 3.99 MG/DL (0.70-1.30); GLUCOSE, FASTING 90 MG/DL (70-100); POTASSIUM SERUM 4.4 MEQ/L (3.5-5.1); SODIUM LEVEL 141 MEQ/L (136-145); TOTAL PROTEIN 5.9 GM/DL (6.4-8.2)
[2018-05-22 15:39] LABS: CHLAMYDIA DNA AMPLIFICATION NEGATIVE (NEGATIVE); GC DNA AMPLIFICATION NEGATIVE (NEGATIVE)
[2018-05-23 10:29] LABS: HEPATITIS B SURFACE ANTIGEN NEGATIVE (NEGATIVE)
[2018-05-23 10:57] LABS: HEPATITIS C VIRUS ABY INDEX 0.1 INDEX (<0.8)
[2018-05-23 10:59] LABS: HIV 1&2 SCREEN CENTAUR NEGATIVE (NEGATIVE)
== END ==
LOC: M LABDRAW1 13:36
PROVIDERS: ATTEND Family Medicine
DX: F11.20 Opioid dependence, uncomplicated (principal); N18.4 Chronic kidney disease, stage 4 (severe); Z94.0 Kidney transplant status; Z79.899 Other long term (current) drug therapy; N39.0 Urinary tract infection, site not specified

== ENCOUNTER → 2018-05-29 | Outpatient (REF) | payer MEDICARE, MEDICAID ==
[2018-05-29 12:22] LABS: ALBUMIN 3.2 GM/DL (3.2-5.2); BILIRUBIN,TOTAL 0.4 MG/DL (0.2-1.0); CALCIUM LEVEL 7.6 MG/DL (8.5-10.1); CREATININE FOR GFR 4.37 MG/DL (0.70-1.30); GLOMERULAR FILTRATION RATE 16.2 (>60); MAGNESIUM LEVEL 1.6 MG/DL (1.8-2.4); PHOSPHORUS LEVEL 4.9 MG/DL (2.5-4.9); POTASSIUM SERUM 4.7 MEQ/L (3.5-5.1); TOTAL PROTEIN 5.4 GM/DL (6.4-8.2)
[2018-05-29 12:23] LABS: BASO % 0.6 % (0.0-1.0); EOS # 0.1 10^3/uL (0.0-0.50); HEMATOCRIT 22.3 % (42.0-52.0); LYMPH % 14.4 % (24.0-44.0); MEAN CORPUSCULAR HEMOGLOBIN 28.2 pg (27.0-33.0); MEAN CORPUSCULAR HGB CONC 31.4 g/dl (32.0-36.5); MEAN CORPUSCULAR VOLUME 89.9 fl (80.0-96.0); MONO # 0.7 10^3/uL (0.0-0.8); MONO % 9.4 % (0.0-5.0); NEUTROPHILS # 5.1 10^3/uL (1.8-7.7); NEUTROPHILS % 73.3 % (36.0-66.0); PLATELET COUNT, AUTOMATED 163 10^3/uL (150-450); RED BLOOD COUNT 2.48 10^6/uL (4.30-6.10)
[2018-05-29 12:42] LABS: APPEARANCE, URINE CLEAR (CLEAR); BACTERIA, URINE AUTO 1+ (NEGATIVE); BILIRUBIN, URINE AUTO NEGATIVE (NEGATIVE); BLOOD, URINE BLOOD 1+ (NEGATIVE); COLOR, URINE YELLOW (YELLOW); GLUCOSE, URINE (UA) AUTO NEGATIVE (NEGATIVE); KETONE, URINE AUTO NEGATIVE (NEGATIVE); LEUKOCYTE ESTERASE, URINE AUTO 1+ (NEGATIVE); NITRITE, URINE AUTO NEGATIVE (NEGATIVE); PROTEIN, URINE AUTO 2+ mg/dL (NEGATIVE); RBC, URINE AUTO 6 /HPF (0-3); SPECIFIC GRAVITY URINE AUTO 1.012 (1.002-1.035); SQUAMOUS EPITHELIAL CELL UR AU 0 /HPF (0-6); UROBILINOGEN, URINE AUTO 0.2 mg/dL (0.0-2.0); WBC, URINE AUTO 44 /HPF (0-3)
[2018-06-01 00:06] LABS: BK VIRUS BLOOD PCR1 Negative copies/mL (Negative)
== END ==
LOC: M LABDRAW1 11:38
PROVIDERS: ATTEND Nurse Practitioner Family
DX: Z51.81 Encounter for therapeutic drug level monitoring (principal); Z79.899 Other long term (current) drug therapy; Z94.0 Kidney transplant status; N39.0 Urinary tract infection, site not specified; N18.4 Chronic kidney disease, stage 4 (severe)

== ENCOUNTER → 2018-06-30 | Outpatient (REF) | payer MEDICARE, MEDICAID ==
[2018-06-30 13:49] LABS: BASO % 0.4 % (0.0-1.0); EOS # 0.2 10^3/uL (0.0-0.50); EOS % 2.3 % (0.0-3.0); HEMATOCRIT 26.7 % (42.0-52.0); HEMOGLOBIN 8.7 g/dl (13.5-17.5); LYMPH # 1.5 10^3/uL (1.5-4.5); LYMPH % 20.9 % (24.0-44.0); MEAN CORPUSCULAR HEMOGLOBIN 27.1 pg (27.0-33.0); MEAN CORPUSCULAR HGB CONC 32.6 g/dl (32.0-36.5); MEAN CORPUSCULAR VOLUME 83.2 fl (80.0-96.0); MONO # 0.7 10^3/uL (0.0-0.8); MONO % 9.3 % (0.0-5.0); NEUTROPHILS # 4.8 10^3/uL (1.8-7.7); NEUTROPHILS % 66.8 % (36.0-66.0); PLATELET COUNT, AUTOMATED 306 10^3/uL (150-450); RED BLOOD COUNT 3.21 10^6/uL (4.30-6.10); WHITE BLOOD COUNT 7.2 10^3/uL (4.0-10.0)
[2018-06-30 13:51] LABS: APPEARANCE, URINE CLEAR (CLEAR); BACTERIA, URINE AUTO NEGATIVE (NEGATIVE); BILIRUBIN, URINE AUTO NEGATIVE (NEGATIVE); BLOOD, URINE BLOOD 1+ (NEGATIVE); COLOR, URINE YELLOW (YELLOW); GLUCOSE, URINE (UA) AUTO NEGATIVE (NEGATIVE); KETONE, URINE AUTO NEGATIVE (NEGATIVE); LEUKOCYTE ESTERASE, URINE AUTO NEGATIVE (NEGATIVE); MUCUS, URINE SMALL (NEGATIVE); NITRITE, URINE AUTO NEGATIVE (NEGATIVE); PROTEIN, URINE AUTO 2+ mg/dL (NEGATIVE); RBC, URINE AUTO 2 /HPF (0-3); SPECIFIC GRAVITY URINE AUTO 1.012 (1.002-1.035); SQUAMOUS EPITHELIAL CELL UR AU 0 /HPF (0-6); UROBILINOGEN, URINE AUTO 0.2 mg/dL (0.0-2.0); WBC, URINE AUTO 1 /HPF (0-3)
[2018-06-30 13:57] LABS: ALBUMIN 3.5 GM/DL (3.2-5.2); BILIRUBIN,TOTAL 0.4 MG/DL (0.2-1.0); CALCIUM LEVEL 9.1 MG/DL (8.5-10.1); CREATININE FOR GFR 7.78 MG/DL (0.70-1.30); GLOMERULAR FILTRATION RATE 8.3 (>60); MAGNESIUM LEVEL 1.9 MG/DL (1.8-2.4); PHOSPHORUS LEVEL 7.8 MG/DL (2.5-4.9); TOTAL PROTEIN 6.4 GM/DL (6.4-8.2)
[2018-07-03 10:10] LABS: BK VIRUS BLOOD PCR1 Negative copies/mL (Negative)
== END ==
LOC: M LABDRAW1 13:03
PROVIDERS: ATTEND Internal Medicine Nephrology
DX: Z94.0 Kidney transplant status (principal); N18.4 Chronic kidney disease, stage 4 (severe); N39.0 Urinary tract infection, site not specified; Z79.899 Other long term (current) drug therapy

== ENCOUNTER → 2018-07-16 | Outpatient (REF) | payer MEDICARE, MEDICAID ==
[2018-07-16 12:30] LABS: BASO % 0.2 % (0.0-1.0); EOS # 0.1 10^3/uL (0.0-0.50); EOS % 1.4 % (0.0-3.0); HEMATOCRIT 29.3 % (42.0-52.0); HEMOGLOBIN 9.3 g/dl (13.5-17.5); LYMPH # 1.2 10^3/uL (1.5-4.5); LYMPH % 27.7 % (24.0-44.0); MEAN CORPUSCULAR HEMOGLOBIN 26.8 pg (27.0-33.0); MEAN CORPUSCULAR HGB CONC 31.7 g/dl (32.0-36.5); MEAN CORPUSCULAR VOLUME 84.4 fl (80.0-96.0); MONO # 0.4 10^3/uL (0.0-0.8); MONO % 9.5 % (0.0-5.0); NEUTROPHILS # 2.7 10^3/uL (1.8-7.7); NEUTROPHILS % 61.2 % (36.0-66.0); PLATELET COUNT, AUTOMATED 183 10^3/uL (150-450); RED BLOOD COUNT 3.47 10^6/uL (4.30-6.10); WHITE BLOOD COUNT 4.4 10^3/uL (4.0-10.0)
[2018-07-16 12:32] LABS: APPEARANCE, URINE CLEAR (CLEAR); BACTERIA, URINE AUTO NEGATIVE (NEGATIVE); BILIRUBIN, URINE AUTO NEGATIVE (NEGATIVE); BLOOD, URINE BLOOD 1+ (NEGATIVE); COLOR, URINE YELLOW (YELLOW); GLUCOSE, URINE (UA) AUTO NEGATIVE (NEGATIVE); KETONE, URINE AUTO NEGATIVE (NEGATIVE); LEUKOCYTE ESTERASE, URINE AUTO NEGATIVE (NEGATIVE); NITRITE, URINE AUTO NEGATIVE (NEGATIVE); PROTEIN, URINE AUTO 2+ mg/dL (NEGATIVE); RBC, URINE AUTO 2 /HPF (0-3); SPECIFIC GRAVITY URINE AUTO 1.012 (1.002-1.035); SQUAMOUS EPITHELIAL CELL UR AU 0 /HPF (0-6); UROBILINOGEN, URINE AUTO 0.2 mg/dL (0.0-2.0); WBC, URINE AUTO 2 /HPF (0-3)
[2018-07-16 12:46] LABS: BILIRUBIN,TOTAL 0.5 MG/DL (0.2-1.0); CREATININE FOR GFR 7.5 MG/DL (0.70-1.30); GLOMERULAR FILTRATION RATE 8.7 (>60); MAGNESIUM LEVEL 1.3 MG/DL (1.8-2.4); PHOSPHORUS LEVEL 4.9 MG/DL (2.5-4.9); POTASSIUM SERUM 4.3 MEQ/L (3.5-5.1); TOTAL PROTEIN 6.1 GM/DL (6.4-8.2)
[2018-07-19 00:14] LABS: BK VIRUS BLOOD PCR1 Negative copies/mL (Negative)
== END ==
LOC: M LABDRAW1 11:06
PROVIDERS: ATTEND Internal Medicine Nephrology
DX: Z79.899 Other long term (current) drug therapy (principal); Z94.0 Kidney transplant status; N39.0 Urinary tract infection, site not specified; N18.4 Chronic kidney disease, stage 4 (severe)

== ENCOUNTER → 2018-08-06 | Outpatient (REF) | payer MEDICARE, MEDICAID ==
[2018-08-06 18:21] LABS: CHOLESTEROL LEVEL 103 MG/DL (<200); CHOLESTEROL RISK RATIO 2.512 (<5); HDL CHOLESTEROL 41 MG/DL (>40); LDL CHOLESTEROL 51 MG/DL (<100); NON-HDL-C 62 MG/DL; TRIGLYCERIDES LEVEL 53 MG/DL (<150)
[2018-08-08 09:50] LABS: HEPATITIS B SURFACE ANTIBODY POSITIVE (POSITIVE)
[2018-08-08 10:01] LABS: HEPATITIS B SURFACE ANTIGEN NEGATIVE (NEGATIVE)
[2018-08-08 10:29] LABS: HEPATITIS B CORE ANTIBODY IGM NEGATIVE (NEGATIVE); HEPATITIS C VIRUS ABY INDEX 0.1 INDEX (<0.8)
== END ==
LOC: M LAB REF 16:53
PROVIDERS: ATTEND Internal Medicine Nephrology
DX: N18.5 Chronic kidney disease, stage 5 (principal)

== ENCOUNTER 2018-08-16 14:30 | Outpatient (CLI) | payer MEDICARE, MEDICAID ==
[~2018-08-16 14:30] MED LIST changes: +diphenhydrAMINE 25 MG CAP PO SCH
[2018-08-16 14:35] VITALS: BP 149/69
[2018-08-16] MEDS ORDERED: ACETAMINOPHEN 325 MG TAB PO ONE (15:30)
[2018-08-16] MEDS ORDERED: FUROSEMIDE 100 MG/10 ML VIAL (J1940) IV PRN (16:00)
[2018-08-16 16:23] LABS: HEMATOCRIT 21.1 % (42.0-52.0); MEAN CORPUSCULAR HEMOGLOBIN 26.4 pg (27.0-33.0); MEAN CORPUSCULAR HGB CONC 31.3 g/dl (32.0-36.5); MEAN CORPUSCULAR VOLUME 84.4 fl (80.0-96.0); PLATELET COUNT, AUTOMATED 247 10^3/uL (150-450); WHITE BLOOD COUNT 6.6 10^3/uL (4.0-10.0)
[2018-08-16 16:31] LABS: HEMOGLOBIN 6.6 g/dl (13.5-17.5)
[2018-08-16 17:55] VITALS: BP 144/63
== END 2018-08-17 01:50 | disposition home or self-care (01) ==
LOC: M OPCLI5PR 14:30 → M MS5PR 14:35 → M OPCLI5PR 08-17 01:50
PROVIDERS: ATTEND Internal Medicine Nephrology
DX: N18.6 End stage renal disease (principal); D63.1 Anemia in chronic kidney disease; Z88.8 Allergy status to other drugs, medicaments and biological substances
CPT/HCPCS: 36415; 36430; 85027; 86850; 86900; 86901; 86920; 96374; J1940; P9016

== ENCOUNTER → 2019-01-25 | Outpatient (CLI) | payer MEDICARE, MEDICAID ==
[~2019-01-25] MED LIST changes: +AMLO10TA PO; +ESCI5SOL3 PO; +XANA1TAB2 PO; +ZANT150T40 PO; -diphenhydrAMINE 25 MG CAP PO SCH
== END ==
LOC: M LAB 12:48
PROVIDERS: ATTEND Internal Medicine Nephrology
DX: N18.9 Chronic kidney disease, unspecified (principal); D63.1 Anemia in chronic kidney disease

== ENCOUNTER 2019-01-26 08:13 | Outpatient (CLI) | payer MEDICARE, MEDICAID ==
[~2019-01-26] VITALS: Ht 182.9 cm; Wt 89.0 kg
[~2019-01-26 08:13] MED LIST changes: -AMLO10TA PO; -ESCI5SOL3 PO; -XANA1TAB2 PO
[2019-01-26 08:20] VITALS: BP 166/85
[2019-01-26] MEDS ORDERED: ACETAMINOPHEN 325 MG TAB PO ONE (08:30)
[2019-01-26 08:42] VITALS: BP 166/85
[2019-01-26] MEDS ORDERED: XANA1TAB2 PO (08:49)
[2019-01-26] MEDS ORDERED: PROTPAK PO (08:49)
[2019-01-26] MEDS ORDERED: AMLO10TA PO (08:51)
[2019-01-26] MEDS ORDERED: ESCI5SOL3 PO (08:52)
[2019-01-26 09:00] VITALS: BP_SYST 158
[2019-01-26 10:00] VITALS: BP 152/75
[2019-01-26 10:15] VITALS: BP 156/81
[2019-01-26 10:45] VITALS: BP 144/79
== END 2019-01-26 10:45 | disposition home or self-care (01) ==
LOC: M INFU 08:13
PROVIDERS: ATTEND Internal Medicine Nephrology
DX: N18.9 Chronic kidney disease, unspecified (principal); D63.1 Anemia in chronic kidney disease; Z88.8 Allergy status to other drugs, medicaments and biological substances
CPT/HCPCS: 36430; P9016

== ENCOUNTER 2019-02-06 03:13 | Emergency (ER) | payer MEDICARE, MEDICAID ==
[~2019-02-06] VITALS: Ht 182.9 cm; Wt 83.5 kg
[2019-02-06] MEDS ORDERED: ACETAMINOPHEN 500 MG TAB PO ONE (04:15)
--- NOTE | 2019-02-06 08:14 | REP ---
Left hand series: Two views. History: Trauma. Findings: Two views of the left hand demonstrate mild soft tissue swelling at the first metacarpal phalangeal joint. No fracture or subluxation is seen. There is a small cyst in the lunate. Bones and joints are otherwise unremarkable. Impression: No fracture seen. Soft tissue swelling at the first metacarpal phalangeal joint. Electronically Signed by Reggie Dalton MD 02/06/2019 08:06 A
== END 2019-02-06 04:36 | disposition home or self-care (01) ==
LOC: M ED 03:13
DX: T22.112A Burn of first degree of left forearm, initial encounter (principal); X08.8XXA Exposure to other specified smoke, fire and flames, initial encounter; Y92.89 Other specified places as the place of occurrence of the external cause; N19 Unspecified kidney failure; Z99.2 Dependence on renal dialysis; D64.9 Anemia, unspecified; Z79.899 Other long term (current) drug therapy; Z79.891 Long term (current) use of opiate analgesic; Z88.8 Allergy status to other drugs, medicaments and biological substances; R31.9 Hematuria, unspecified

== ENCOUNTER → 2019-02-06 | Outpatient (REF) | payer MEDICARE, MEDICAID ==
[~2019-02-06] MED LIST changes: +AMLO10TA PO; +ESCI5SOL3 PO; +XANA1TAB2 PO
[2019-02-06 13:38] LABS: APPEARANCE, URINE CLOUDY (CLEAR); BACTERIA, URINE AUTO NEGATIVE (NEGATIVE); BILIRUBIN, URINE AUTO NEGATIVE (NEGATIVE); BLOOD, URINE BLOOD 2+ (NEGATIVE); COLOR, URINE AMBER (YELLOW); GLUCOSE, URINE (UA) AUTO NEGATIVE (NEGATIVE); KETONE, URINE AUTO TRACE mg/dL (NEGATIVE); LEUKOCYTE ESTERASE, URINE AUTO NEGATIVE (NEGATIVE); NITRITE, URINE AUTO NEGATIVE (NEGATIVE); PROTEIN, URINE AUTO 3+ mg/dL (NEGATIVE); RBC, URINE AUTO TNTC /HPF (0-3); SPECIFIC GRAVITY URINE AUTO 1.026 (1.002-1.035); SQUAMOUS EPITHELIAL CELL UR AU 0 /HPF (0-6); UROBILINOGEN, URINE AUTO 0.2 mg/dL (0.0-2.0); WBC, URINE AUTO TNTC /HPF (0-3)
== END ==
LOC: M LAB REF 12:14
PROVIDERS: ATTEND Internal Medicine Nephrology
DX: R31.9 Hematuria, unspecified (principal)

== ENCOUNTER → 2019-02-13 | Outpatient (CLI) | payer MEDICARE, MEDICAID ==
--- NOTE | 2019-02-13 10:10 | REP ---
Clinical: Nephrolithiasis. Technique: Axial noncontrast images from the lung bases to the pubic symphysis with coronal and sagittal re-formations. Comparison: 03/23/2018. Findings: The bilateral [place] kidneys demonstrate complete atrophic change along with bilateral nephrolithiasis and small hypodensities which remain stable. There is no evidence for perinephric stranding or acute hydronephrosis involving the [place] kidneys. An atrophic right transplant kidney also identified and remains unchanged and without acute process. A more recent transplant kidney in the left isabela pelvis is identified and appears moderately enlarged/edematous surrounding perinephric stranding as compared to its normal appearance on 03/23/2018. These findings are concerning for acute process including pyelonephritis as well as element of rejection/dysfunction. Moderate to significant retroperitoneal adenopathy is also appreciated. Hepatomegaly and splenomegaly again noted. Pancreas, gallbladder, and bilateral adrenal glands are essentially normal. Moderate fecal stasis is suggested without bowel obstruction or obvious acute inflammatory process. No significant ascites. No free air. Impression: 1. Significant relatively acute appearing changes involving the transplant kidney in the left isabela pelvis. Differential diagnosis includes pyelonephritis as well as element of rejection/dysfunction. Follow-up is required. 2. Retroperitoneal adenopathy warrants investigation. Electronically Signed by Oniel Matthews MD 02/13/2019 10:02 A
== END ==
LOC: M RAD 09:35
PROVIDERS: ATTEND Internal Medicine Nephrology
DX: N20.0 Calculus of kidney (principal)

== ENCOUNTER → 2019-03-01 | Outpatient (CLI) | payer MEDICARE, MEDICAID | LOC: M LAB 13:09 | PROVIDERS: ATTEND Internal Medicine Nephrology | DX: N18.9 Chronic kidney disease, unspecified (principal); D63.1 Anemia in chronic kidney disease ==

== ENCOUNTER 2019-03-04 07:18 | Outpatient (CLI) | payer MEDICARE, MEDICAID ==
[~2019-03-04] VITALS: Ht 188 cm; Wt 83.5 kg
[~2019-03-04 07:18] MED LIST changes: +ACETAMINOPHEN 325 MG TAB PO ONE
[2019-03-04 08:00] VITALS: BP 136/86
[2019-03-04] MEDS ORDERED: ACETAMINOPHEN 325 MG TAB PO ONE (08:00)
[2019-03-04 08:15] VITALS: BP 163/84
[2019-03-04 09:00] VITALS: BP 164/90
[2019-03-04 10:30] VITALS: BP 172/94
== END 2019-03-04 10:50 | disposition home or self-care (01) ==
LOC: M INFU 07:18
PROVIDERS: ATTEND Internal Medicine Nephrology
DX: N18.9 Chronic kidney disease, unspecified (principal); D63.1 Anemia in chronic kidney disease
CPT/HCPCS: 36430; 86920; P9016

== ENCOUNTER 2019-04-22 06:38 | Inpatient (IN) | payer MEDICAID, MEDICARE ==
[2019-04-22] VITALS (28 sets, daily range): BP systolic 149–178; BP diastolic 68–92
[~2019-04-22] VITALS: Ht 182.9 cm; Wt 80.0 kg
[~2019-04-22 06:38] MED LIST changes: -ACETAMINOPHEN 325 MG TAB PO ONE
[2019-04-22] MEDS ORDERED: niCARdipine IV 40 MG in IV 1 EA IV SCH (07:15)
[2019-04-22] MEDS ORDERED: HYDR8TAB PO (07:19)
[2019-04-22 07:35] LABS: BASO % 0.4 % (0.0-1.0); EOS % 0.2 % (0.0-3.0); HEMOGLOBIN 11.9 g/dl (13.5-17.5); LYMPH # 0.9 10^3/uL (1.5-5.0); LYMPH % 10.8 % (24.0-44.0); MEAN CORPUSCULAR HEMOGLOBIN 27.7 pg (27.0-33.0); MEAN CORPUSCULAR HGB CONC 32.2 g/dl (32.0-36.5); MONO # 0.5 10^3/uL (0.0-0.8); MONO % 6.2 % (0.0-5.0); NEUTROPHILS # 6.9 10^3/uL (1.5-8.5); NEUTROPHILS % 82.2 % (36.0-66.0); PLATELET COUNT, AUTOMATED 256 10^3/uL (150-450); WHITE BLOOD COUNT 8.4 10^3/uL (4.0-10.0)
[2019-04-22 07:59] LABS: ACETAMINOPHEN LEVEL < 2.0 UG/ML (10.0-30.0); BLOOD UREA NITROGEN 24 MG/DL (7-18); CALCIUM LEVEL 8.4 MG/DL (8.5-10.1); CARBON DIOXIDE LEVEL 24 MEQ/L (21-32); CHLORIDE LEVEL 100 MEQ/L (98-107); CREATININE FOR GFR 7.21 MG/DL (0.70-1.30); ETHYL ALCOHOL (ETHANOL) < 0.003 % (0.000-0.010); GLOMERULAR FILTRATION RATE 9.1 (>60); GLUCOSE, FASTING 95 MG/DL (70-100); POTASSIUM SERUM 4.5 MEQ/L (3.5-5.1); SALICYLATE LEVEL < 1.7 MG/DL (5.0-30.0); SODIUM LEVEL 137 MEQ/L (136-145)
[2019-04-22] MEDS ORDERED: ESCI10TA2 PO (07:59)
[2019-04-22] MEDS ORDERED: ALPR0.5T3 PO (07:59)
[2019-04-22] MEDS ORDERED: VITA1CHW7 PO (07:59)
[2019-04-22] MEDS ORDERED: PRED10TA2 PO (07:59)
--- NOTE | 2019-04-22 08:00 | REPVR ---
PROCEDURE INFORMATION: Exam: CT Head Without Contrast Exam date and time: 04/22/2019 7:43 AM Age: 39 years old Clinical indication: Pain; Headache; Additional info: Seizure TECHNIQUE: Imaging protocol: Computed tomography of the head without contrast. Radiation optimization: All CT scans at this facility use at least one of these dose optimization techniques: automated exposure control; mA and/or kV adjustment per patient size (includes targeted exams where dose is matched to clinical indication); or iterative reconstruction. COMPARISON: No relevant prior studies available. FINDINGS: Brain: Normal. No hemorrhage. Unremarkable white matter. No mass effect. Ventricles: Normal. No ventriculomegaly. Bones/joints: Unremarkable. No acute fracture. Sinuses: Visualized sinuses are unremarkable. No fluid levels. Mastoid air cells: Visualized mastoid air cells are well aerated. Soft tissues: Unremarkable. IMPRESSION: No acute intracranial abnormality. Electronically signed by: Jorge Sandra On 04/22/2019 07:59:42 AM
[2019-04-22] MEDS ORDERED: LIDO2.5C15 TOP (08:04)
[2019-04-22] MEDS ORDERED: VIAG100T PO (08:04)
[2019-04-22] MEDS ORDERED: FAMO40TA3 PO (08:04)
[2019-04-22] MEDS ORDERED: VELP5CHW PO (08:09)
[2019-04-22] MEDS ORDERED: AMLO5TAB6 PO (08:11)
[2019-04-22 08:21] LABS: CPK CREATINE PHOSPHOKINASE 84 U/L (39-308)
[2019-04-22] MEDS ORDERED: predniSONE 10 MG TAB PO SCH (09:00)
[2019-04-22 09:22] LABS: CK-MB VALUE MASS 1.4 NG/ML (<3.6); MB/CK RELATIVE INDEX 1.67 (< OR =4); TROPONIN I 0.02 NG/ML (< 0.10)
[2019-04-22] MEDS ORDERED: ISOVUE-370 76% 100ML VIAL (Q9967) As Ordered ONE (10:00)
[2019-04-22] MEDS ORDERED: ACETAMINOPHEN 500 MG TAB PO PRN (10:00)
[2019-04-22] MEDS ORDERED: EMLA CREAM 5GM (LIDOCAINE/PRILOCAINE) TOP SCH (10:00)
[2019-04-22] MEDS: METHADONE 10 MG TAB (S0109) PO SCH ×2 (10:42→17:31)
[2019-04-22] MEDS: niCARdipine IV 40 MG in IV 1 EA IV SCH ×3 (10:43→23:48)
[2019-04-22] MEDS: HYDROmorphone (DILAUDID) 4 MG TAB PO PRN ×2 (10:43→21:45)
--- NOTE | 2019-04-22 11:03 | REP ---
CT pulmonary angiogram: With IV contrast. History: Dyspnea, seizure, history of cocaine abuse. Comparison MR angiography March 22, 2018. Contrast dose: 100 mL of Isovue [address] technique: Helical scanning is acquired and overlapping 1.5 mm and contiguous 3 mm axial images are reformatted. In addition, maximum intensity projection and multiplanar re-formation images are generated in sagittal and coronal imaging projections. CT pulmonary angiographic findings: Preliminary digital professional sports scout radiograph demonstrates enlarged cardiac silhouette. There is good opacification of the pulmonary arterial tree. There is no CT evidence of pulmonary embolus. No evidence of aortic dissection or aneurysm is seen. The ascending aorta measures 3.7 cm in anteroposterior dimension at the level of the right main pulmonary artery. There is a small to moderate pericardial effusion noted. No pleural effusion is noted. There are coarse linear discoid atelectatic versus fibrotic changes in the lower lobes bilaterally and in the right middle lobe. No definite infiltrate is seen. No significant pulmonary nodule is appreciated. In the upper abdomen, the [place] kidneys are calcific and markedly atrophic. Visualized upper abdominal structures are otherwise unremarkable. Impression: Cardiomegaly with a small to moderate pericardial effusion. No CT evidence of pulmonary embolus or aortic dissection or aneurysm. Bilateral lower lobe and right middle lobe fibrosis versus atelectasis. This is somewhat more prominent than on comparison CT study from February 13, 2019 CT abdomen. Otherwise no active disease. Marked atrophy of the [place] kidneys. Electronically Signed by Reggie Dalton MD 04/22/2019 02:30 P
--- NOTE | 2019-04-22 11:07 | REP ---
CT angio abdomen and pelvis with IV contrast: History: Acute abdomen. History of renal transplant. Comparison CT study is from February 13, 2019. CT contrast dose: 100 mL of intravenous Isovue 370 is administered. Findings: Digital preliminary combination building inspector radiograph demonstrates cardiomegaly. Bowel gas pattern is normal. There is fibroatelectatic change in the lower lobes of the lungs bilaterally. The [place] kidneys are markedly atrophic and show multiple cortical calcifications. There are bilateral iliac fossa renal transplant kidneys noted. The right transplant is severely atrophic as well. The left transplant appears abnormal with an amorphous necrotic appearing area instead of renal tissue. In any event this is essentially unchanged from February 13, 2019. It is somewhat smaller however measuring 9 cm in greatest diameter previously and 7 cm in greatest diameter today. There is a minimal amount of ascites in the pelvic reflection. No focal hepatic or splenic lesion is seen. No adrenal lesion is observed. No abnormality is noted in the pancreas or gallbladder. There is no evidence of free intraperitoneal air. Small and large bowel loops are unremarkable. No obstructive lesion is seen. The appendix is not visualized. There is no CT evidence to suggest appendicitis however. Normal caliber aorta. No visceral arterial occlusion is visible. Impression: Status post bilateral failed iliac fossa renal transplants. Necrotic appearance to the iliac fossa transplant on the left similar to the February 13, 2019 study although smaller in overall size. Marked atrophy of the [place] kidneys bilaterally. Minimal pelvic ascites. No other evidence of intra-abdominal abnormality. Electronically Signed by Reggie Dalton MD 04/22/2019 02:30 P
--- NOTE | 2019-04-22 11:17 | HPEPDOC ---
General Date of Admission Date of Service: Apr 22, 2019 Primary Care Physician: Stefan Palacio MD Attending Physician: ALEX WATSON MD Chief Complaint The patient is a 39-year-old male admitted with a reason for visit of Possible Seizure. Source: Family () History of Present Illness Davian is a 39-year-old male who is brought to the emergency department via EMS after his called to report possible seizure activity. History is mostly obtained from the , who is at bedside. His was awoken at around 5 AM this morning because she thought the patient was hitting her. When she looked over, she realized that he was shaking (generalized). She says the episode lasted for about 30 seconds. She called EMS because the patient was confused and was not answering questions. It took the ambulance about 10-15 minutes to get there, and when EMS personnel arrived he was able to start answering questions, although sluggishly and somewhat lethargically. The says that he does not make urine, and she did not notice any fecal incontinence. He has had a seizure before, in 2012, which was attributed to high blood pressure (he was treated at [facility], this was verified by his primary care provider Dr. Palacio). 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 He also has a significant medical history of cocaine abuse. 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 He reports that the last time he used cocaine was several months ago, and he no longer goes to [facility] for counseling. His transplant team is in [place], and according to his , there is concern that his second transplanted kidney may be causing problems. The also reports that the patient has been feeling ill recently. He does have chronic chills, however over the last few days he has been nauseous and he vomited once last night. There have been no fevers. They have kids and none of the children are sick. Imaging done in the emergency department: CT of the head done 04/22/2019 showed no acute intracranial abnormality CT angiography of the chest on 04/22/2019: Cardiomegaly with a small to moderate pericardial effusion. No CT evidence of pulmonary embolus or aortic dissection or aneurysm. Bilateral lower lobe and right middle lobe fibrosis versus atelectasis, somewhat more prominent than CT done 02/13/2019. CT angiography of the abdomen on 04/22/2019: Status post bilateral failed iliac fossa renal transplant. A chronic appearance to the iliac fossa transplant on the left, similar to 02/13/2009 study, although smaller in overall size. Marked atrial feeling of the [place] kidneys bilaterally. Minimal pelvic ascites, no other abnormal abdominal abnormality. Due to seizure and hypertension, hospitalist service was called for admission Home Medications Scheduled Amlodipine Besylate (Amlodipine Besylate) 5 Mg Tablet, 10 MG PO QHS, (Reported) Cholecalciferol (Vitamin D3) (Vitamin D3) 2,000 Unit Tab.chew, 2,000 UNIT PO QHS, (Reported) Cyanocobalamin (Vitamin B-12) (Vitamin B-12) 1,000 Mcg Tab, 1,000 MCG PO QHS, (Reported) Escitalopram Oxalate (Escitalopram Oxalate) 10 Mg Tablet, 10 MG PO QHS, (Reported) Famotidine (Famotidine) 40 Mg Tablet, 40 MG PO QHS, (Reported) Labetalol HCl (Labetalol HCl) 200 Mg Tab, 400 MG PO BID, (Reported) Lidocaine/Prilocaine (Lidocaine-Prilocaine Cream) 2.5%/2.5% Cream..g., 1 DOSE TOP ASDIRECTED, (Reported) APPLY TO PORT PRIOR TO DIALYSIS SATURDAY,SATURDAY AND SATURDAY Methadone HCl (Dolophine HCl) 10 Mg Tab, 45 MG PO Q6H, (Reported) Pantoprazole Sodium (Protonix) 40 Mg Granpkt.dr, 40 MG PO QHS, (Reported) Prednisone (Prednisone) 10 Mg Tablet, 10 MG PO DAILY, (Reported) Sucroferric Oxyhydroxide (Velphoro) 500 Mg Tab.chew, 1,000 MG PO WM, (Reported) Scheduled PRN Acetaminophen (Acetaminophen) 500 Mg Tab, 1,000 MG PO Q4H PRN for PAIN, (Reported) Alprazolam (Alprazolam) 0.5 Mg Tablet, 0.5 MG PO BID PRN for ANXIETY, (Reported) Hydromorphone HCl (Hydromorphone HCl) 8 Mg Tablet, 8 MG PO QID PRN for PAIN, (Reported) Sildenafil Citrate (Viagra) 100 Mg Tablet, 100 MG PO ASDIRECTED PRN for ERECTILE DYSFUNCTION, (Reported) Allergies Coded Allergies: amitriptyline (Verified Adverse Reaction, Mild, DOES NOT TOLERATE,ANXIETY, 04/22/19) duloxetine (Verified Adverse Reaction, Mild, ANXIETY, 04/22/19) gabapentin (Verified Adverse Reaction, Unknown, ANEMIA, 04/22/19) Past Medical History Medical History Juana Diaz disease End-stage renal disease on hemodialysis, TTS (status post 2 rejected kidney transplants) Hypertension Anemia of chronic disease Chronic low back pain Borderline B12 deficiency C. difficile colitis (April 2010 [facility]) Campylobacter enteritis (October 2011 [place]) Bilateral pneumonia with Escherichia coli bacteremia (November 2011 [facility]) Neuropathic leg pain (thought to be secondary to Tacrolimus) Chronic prescription opiate use, on methadone and Dilaudid Aortic regurgitation/mitral regurgitation (echo 2011) Avascular necrosis of the right calcaneus/talus 2014 Cyclic vomiting syndrome from chronic marijuana use 2015 Anxiety High-dose methadone use Surgical History Kidney biopsy (age 7, 2010) ORIF right thumb (1999) Peritoneal dialysis tube placement (2004, 2012) History of kidney transplants (2004, 2013) EGD and colonoscopy (2010, 2014) Left arm AV fistula (2011) Left AV fistula bypass (2011) Cardiac catheterization (2012, secondary to severe hypertension) Left meniscal knee surgery (2016) Family History Juana Diaz disease Social History As stated above, he has a history positive for drug use (he reports that he has not used cocaine in several months, but he does smokes marijuana daily- last use was a couple days ago). He is currently on methadone and Dilaudid, prescribed by Irma Navarrete. He denies alcohol use and says he was a former smoker, and he quit in 2014. He lives with his and 2 kids, none of whom are sick. He denies having any pets. He has had no recent travel. A-FIB/CHADSVASC A-FIB History Current/History of A-Fib/PAF?: No Review of Systems Other systems Constitutional: Denies weight loss, weight gain, fevers, or night sweats. Does have chronic chills Eyes: Denies visual changes, double vision, blurry vision, floaters, or feeling like a curtain pulled down. Ear nose throat: Denies runny nose, epistaxis, sinus pain, tinnitus, sore throat, or odynaphasia Cardiovascular: Denies chest pain, shortness of breath, paroxysmal nocturnal dyspnea, orthopnea, edema, or palpitations. Respiratory: Denies cough, sputum production, wheezes, hemoptysis, or shortness of breath Gastrointestinal: Denies difficulty swallowing, loss of appetite, nausea, vomiting, diarrhea, constipation, obstipation, hematemesis, hematochezia, melena, or tenesmus. Does report lower abdominal pain, which is somewhat chronic since his renal transplants have failed. Genitourinary: Patient does not make urine Musculoskeletal: Denies joint swelling, decreased range of motion, crepitus, or new arthritis. Endorses history of chronic low back pain Integumentary: Denies pruritus, rashes, or lesions Neuro: Denies any changes to sight/smell/hearing/taste, seizures, fainting or headaches. Positive for recent seizure-like activity, as well as chronic neuropathy from Tacrolimus Psychiatric: Denies paranoia, anhedonia, or episodes of lily. Endorses a history of anxiety and depression Endocrine: Denies diarrhea, increased appetite, tremor, palpitations, consti pation, dry skin, polydipsia, polyuria, polyphagia Hematologic: Denies any anemia, purpura, or petechiae Lymphatic: Denies any new lumps or bumps anywhere Physical Examination Other physical findings General: Middle-aged male who looks older than stated age. Somewhat agitated in the stretcher in the emergency department. Integumentary: Multiple tattoos, no jaundice, no rashes HEENT: Sclera anicteric. Mucous membranes moist, however his lips are chapped. Dentition is fair. Extraocular eye movements are intact, no nystagmus was noted. Neck: Jugular venous pulsations visible above the clavicle. No thyromegaly or masses. Neck is supple Lungs: Clear to auscultation bilaterally; no wheezes, rhonchi, rales Heart: Regular rhythm, somewhat tachycardic. He has a 4/6 systolic blowing murmur heard best at the apex in the fifth intercostal space on the left. No gallops or rubs. Abdomen: Oblique scars noted bilaterally in the lower quadrants from prior surgery. The abdomen is nondistended. Bowel sounds are somewhat hyperactive. Abdomen is soft, and he does have mild guarding with diffuse discomfort to palpation. There is, however, no rebound tenderness or rigidity. There is no exacerbation of his pain with flexion of the hip. Extremities: No lower extremity edema bilaterally. No clubbing, no cyanosis. Also Zyrtec 2+ in all 4 extremities. AV fistula present with palpable thrill in the left upper extremity. Thrill is also palpated proximally into the neck. Neuro: Cranial nerves II through XII grossly intact. No nystagmus. No asterixis. Sensation intact throughout. Muscle strength 5 out of 5 throughout. Patient is alert and oriented times 3 and answering questions appropriately. Vital Signs Vital Signs Date Time Temp Pulse Resp B/P (MAP) Pulse Ox O2 Delivery O2 Flow Rate FiO2 04/22/19 10:43 20 98 04/22/19 08:35 183/102 (129) 04/22/19 08:25 101 Room Air 04/22/19 06:49 96.2 Laboratory Data Labs 24H Laboratory Tests 2 04/22/19 07:00: Immature Granulocyte % (Auto) 0.2, Neutrophils (%) (Auto) 82.2H, Lymphocytes (%) (Auto) 10.8L, Monocytes (%) (Auto) 6.2H, Eosinophils (%) (Auto) 0.2, Basophils (%) (Auto) 0.4, Neutrophils # (Auto) 6.9, Lymphocytes # (Auto) 0.9L, Monocytes # (Auto) 0.5, Eosinophils # (Auto) 0.0, Basophils # (Auto) 0.0, Nucleated Red Blood Cells % (auto) 0.0, Anion Gap 13, Glomerular Filtration Rate 9.1L, Calcium Level 8.4L, Total Creatine Kinase 84, Creatine Kinase MB 1.4, Creatine Kinase MB Relative Index 1.67, Troponin I 0.02, Salicylates Level < 1.7L, Acetaminophen Level < 2.0L, Ethyl Alcohol Level < 0.003 04/22/19 09:59: CBC/BMP Laboratory Tests 04/22/19 07:00 Assessment/Plan Assessment: This is a 39-year-old male who had witnessed seizure-like activity at home. He has a past medical history significant for a seizure in 2012 attributed to hypertension, as well as history of cocaine abuse. He has end-stage renal disease on hemodialysis, status post 2 failed kidney transplants. He is being admitted for seizure workup and hypertensive urgency. Plan: 1. Witnessed seizure-like activity. CT of the head was negative, this is most likely secondary to uncontrolled hypertension (he presented with a systolic of 240 upon arrival to the emergency department). Will obtain MRI of the head, as well as an EEG. He'll be on telemetry. Dr. Moreno from neurology has been consulted, we appreciate his recommendations. Will also start on Depakote extended release 500 mg twice a day. 2. Hypertensive urgency. Currently on nicardipine drip, which we will continue. Patient says that his last cocaine use was several months ago, blood toxicology pending. Due to his hypertension and unable to rule out cocaine use with urine (as he does not produce urine), will give bolus of phentolamine (5 mg IV 1 according to protocol). 3. Pericardial effusion. Seen on CT angiography of the chest. Will obtain echocardiogram. 4. End-stage renal disease on hemodialysis, status post failed kidney transplant x2. Dialysis Saturday, , Saturday. Fistula is patent. Dr. Tinoco from nephrology consulted, appreciate his help. He is on chronic prednisone for his kidney transplant, which we will increase. 5. Substance abuse. Blood toxicology has been sent out. Continue to monitor. 6. Chronic low back pain. On high-dose methadone and hydromorphone outpatient. We will continue this for now. Low threshold for Narcan if needed. 7. Abdominal pain. Pain out of proportion to exam. CT abdomen was unrevealing for conclusive etiology. Will continue to monitor at this time. 8. Anxiety. Continue with home benzodiazepine. 9. DVT prophylaxis. Teds and sequentials. Disposition: Pending clinical improvement Plan / VTE VTE Prophylaxis Ordered?: Yes GME ATTESTATION GME ATTESTATION My faculty preceptor for this patient encounter was physically present during the encounter and was fully available. All aspects of the patient interview, examination, medical decision making process, and medical care plan development were reviewed and approved by the faculty preceptor. The faculty preceptor is aware and concurs with the plan as stated in the body of this note and will attest to such by his/her cosignature. ATTENDING NOTE I, Alex Watson, have independently examined this patient and performed my own physical exam, as well as reviewed the documentation and edited where necessary. I have discussed in detail with the resident / student the findings and plan of treatment as documented by the resident / student and edited their note. I agree with their findings and treatment plan and have edited their documentation. I will continue to follow the patient during this hospital stay. - Patient was seen and evaluated at the bedside - Patient was noted to experience seizure-like episode while at home, was brought to the emergency room for further evaluation - Clinically patient had reported experiencing severe abdominal pain - Physical, did reveal a significantly elevated blood pressure with systolics greater than 200 and abdominal discomfort that seemed out of proportion - Case was discussed with Dr. Tinoco, who will be seeing and evaluating the patient in the emergency room - Patient was started on a nicardipine drip and transferred to the ICU for further monitoring - will reduce patient's blood pressure gradually over the next 24 hours - Will hold home HTN medications at this time - MRI and EEG were ordered; neurology has been consultation - Will effectively control pain Critical care time 48 minutes BECKY FULLER D.O. Apr 22, 2019 11:16 ALEX WATSON MD Apr 22, 2019 17:12
[2019-04-22] MEDS ORDERED: LORazepam 2 MG/ML VIAL (J2060) IV STA (11:18)
[2019-04-22] MEDS ORDERED: predniSONE 10 MG TAB PO ONE (11:45)
[2019-04-22] MEDS ORDERED: PHENTOLAMINE MESYLATE 5 MG VIAL (J2760 UP TO 5MG) IV ONE (12:00)
[2019-04-22] MEDS: SUCROFERRIC OXYHYDROXIDE 500MG CHEW TAB (VELPHORO) PO SCH ×2 (12:30→17:15)
[2019-04-22] MEDS: DIVALPROEX 500MG *ER* TAB PO SCH ×2 (13:54→21:45)
--- NOTE | 2019-04-22 15:48 | ECHO ---
DATE OF PROCEDURE: 04/22/2019 REFERRING PHYSICIAN: Dr. Sims INDICATION: Cardiac murmur, pericardial effusion. HEIGHT: 72 inches. WEIGHT: 93 kg. 2D MEASUREMENTS: Left ventricle diastole: 5.3 cm Ventricular septum: 1.30 cm Posterior wall: 1.30 cm Left atrium: 4.4 cm Aortic root: At sinus of Valsalva 3.9 cm Proximal ascending aorta: 3.3 cm Aortic annulus: 2.2 cm Inferior vena cava: 2.3 cm DOPPLER MEASUREMENTS: Aortic valve velocity: 216 cm/s LVOT velocity: 155 cm/s LVOT VTI: 32.1 cm No aortic stenosis. No aortic regurgitation. No mitral regurgitation. Mitral E velocity: 116 cm/s Mitral A velocity: 96.3 cm/s Mitral deceleration time: 218 ms Very mild tricuspid regurgitation. Estimated right ventricle systolic pressure: 45-50 mmHg assuming a right atrial pressure of 5-10 mmHg. MITRAL ANNULAR TISSUE DOPPLER: E prime septal: 10.0 cm/s E prime lateral: 15.5 cm/s DESCRIPTION: Rhythm was sinus. Image quality was good. CONCLUSIONS: 1. Mild concentric left ventricle hypertrophy. No regional wall motion abnormalities of the left ventricle. Normal left ventricle systolic function. Left ventricular ejection fraction (LVEF) 65-70% by visual estimate. Normal left ventricle (LV) diastolic function. 2. Small pericardial effusion which measured maximally over the left ventricle apex where it measured 0.8 cm. No diastolic chamber collapse. No significant respiratory variation of intracardiac velocities. 3. Mild left atrial dilatation. 4. Mild dilatation of the aortic root at the level of the sinus of Valsalva. (3.9 cm). 5. Suggestive of moderate elevation of estimated right ventricle systolic pressure.
[2019-04-22] MEDS: ALPRAZolam 0.5 MG TAB PO PRN (20:12)
--- NOTE | 2019-04-22 21:15 | CR ---
DATE OF CONSULTATION: 04/22/2019 REQUESTING PHYSICIAN: Alex Watson MD CONSULTING PHYSICIAN: Juan Tinoco MD REASON FOR CONSULTATION; Management of end-stage renal disease and hypertension with history of renal allograft rejection in this patient. CHIEF COMPLAINT The patient was brought to the emergency room today after an episode of witnessed seizure-like activity. 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 The patient was brought to the emergency room by EMS after his girlfriend witnessed possible seizure-like activity in the morning. He was having generalized shaking that lasted for about 30 seconds. She called the ambulance and the patient was brought to the emergency room. When the patient arrived at the emergency room he was found to have elevated blood pressures. The patient does have history of chronic opioid dependence and history of cocaine abuse in the past. However, the patient's girlfriend states that she is not aware of any recent cocaine abuse by the patient. I saw and evaluated the patient today morning at the bedside in the emergency room. He had just come back after getting a CT scan of the abdomen and pelvis. The patient is much more awake and alert now. He was on nicardipine drip when I saw him and he reports that his abdominal pain is getting better now. PAST MEDICAL HISTORY End-stage renal disease, secondary to dense disease. He is getting dialysis every Saturday, , Saturday. History of hypertension, anemia and end-stage renal disease, peripheral neuropathy and leg pain, chronic dependence on a prescription opiates including methadone and Dilaudid. History of cyclic vomiting syndrome from chronic marijuana abuse, anxiety. PAST SURGICAL HISTORY Status post kidney biopsy in the past, open reduction internal fixation of the right arm, history of peritoneal dialysis catheter placement in 2004 and 2012, kidney transplant in 2004 and 2013. EGD and colonoscopy in [id number]. Left arm AV fistula in 2011. Cardiac catheterization 2013 because of hypertension and left meniscal knee surgery in 2016. ALLERGIES: The patient is allergic AMITRIPTYLINE, DULOXETINE and GABAPENTIN. FAMILY HISTORY: Has positive family history of dense disease. SOCIAL HISTORY The patient lives at home. He has history of cocaine abuse, marijuana abuse, prescription opioid use. REVIEW OF SYSTEMS Constitutional: He denies any fevers and chills. Eyes: He denies any blurry vision, double vision. ENT: Denies any dysphagia, odynophagia. Cardiovascular: Denies any chest pain, palpitation. Respiratory: Denies any shortness of breath or cough. GI: He did report abdominal pain on arrival. He does report some nausea. Genitourinary: He reports decreased urine output. Musculoskeletal: Denies any muscle aches and pains at this time. MILLWRIGHT: He was reported to have seizure-like activity today morning. Skin: He denies any rashes or ulcers. Hematology/Oncology: He denies any easy bleeding or bruising. All other review of systems is negative. PHYSICAL EXAMINATION General: The patient is awake, alert, oriented times three, sitting up in the bed; in no apparent distress. Vital signs: Blood pressure on arrival was 232/107, temperature 96.2, respiratory rate of 18, pulse 73, saturating 100% on room air. Head and neck examination: Extraocular muscles intact. Pupils equally round and reactive to light. Mucous membranes are moist. Neck is supple. There is no JVD. Cardiovascular: S1, S2, regular rate. Trace edema of the bilateral lower extremities. Respiratory: Chest is clear to auscultation bilaterally. Bilateral equal air entry. No rales or rhonchi. Abdomen: Soft. There is involuntary guarding. There is no tenderness or rebound tenderness. Left lower quadrant renal allograft with no tenderness. Musculoskeletal: No clubbing or cyanosis. Pulses are 2+. MILLWRIGHT: No focal deficit. Power is 5/5 in all extremities. LAB REVIEW: CBC showed a WBC 8.4, hemoglobin is 11.9, platelets 256. BMP showed sodium 137, potassium 4.5, chloride 100, bicarb 24, BUN 24, creatinine is 7.2, calcium 8.4. CURRENT INPATIENT MEDICATIONS: - The patient is currently getting nicardipine drip at 5 mg an hour . Tylenol as needed - alprazolam 0.5 mg by mouth twice a day as needed anxiety - vitamin B12 1000 mcg at bedtime - Depakote ER 500 mg twice a day - Lexapro 10 mg at bedtime - famotidine 40 mg at bedtime - Dilaudid 8 mg four times a day as needed pain - methadone 45 mg by mouth every 6 hourly - He was on prednisone 10 mg daily. I have increased it to 20 mg daily. - He is on Velphoro 1000 mg by mouth with meals ASSESSMENT 39-year-old male with history of end-stage renal disease on hemodialysis. He has hypertension, history of opioid dependence and cocaine abuse being admitted this time with hypertensive urgency and witnessed seizure-like activity. PLAN 1. End-stage renal disease. The patient is dialysis dependent. He was dialyzed yesterday. No urgent need of hemodialysis today. He will be dialyzed according to his regular schedule tomorrow morning. 2. Hypertensive urgency. The patient is currently on nicardipine drip. Given his history of cocaine abuse, I would clinically treat his as possible cocaine abuse. There is no urine available for toxicology. Blood is being sent for toxicology. He takes labetalol at home. Labetalol will be held at this time. Further change in the antihypertensive regimen will be done tomorrow morning. 3. History of cocaine abuse and opioid dependence. [place] prescription monitoring program records were checked. The patient is getting opiate prescription from a nurse practitioner. As mentioned above, blood has been sent for toxicology to check for evidence of cocaine abuse at this time. Continue benzodiazepines for anxiety. 4. Chronic kidney disease, mineral bone disease. Continue current dose of Velphoro 1 gram by mouth with meals. 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 He was getting prednisone 10 mg daily. I have increased the dose to 20 mg by mouth daily. The patient is awaiting transplant nephrectomy to be done at [facility]. Thank you for involving me in the care of this patient. I shall be happy to follow the patient along with you tomorrow morning.
--- NOTE | 2019-04-22 21:39 | REPVR ---
PROCEDURE INFORMATION: Exam: MR Head Without Contrast Exam date and time: 04/22/2019 9:25 PM Age: 39 years old Clinical indication: Other: Seizure TECHNIQUE: Imaging protocol: MR of the head without contrast. COMPARISON: CT Head without contrast 04/22/2019 7:29 AM FINDINGS: Motion limited examination. Major vascular flow voids at the skull base are preserved. No extra-axial fluid collection. No hydrocephalus. No midline shift or intracranial mass effect. No cerebral edema. No definite diffusion restriction. Hippocampal formations are symmetric. Visualized paranasal sinuses and mastoid air cells are clear. IMPRESSION: Patient motion without definite acute intracranial abnormality. Electronically signed by: Diego Benavides On 04/22/2019 21:38:55 PM
[2019-04-22] MEDS: CYANOCOBALAMIN 500 MCG TAB PO SCH (21:45)
[2019-04-22] MEDS: ESCITALOPRAM OXALATE 10 MG TAB (LEXAPRO) PO SCH (21:45)
[2019-04-22] MEDS: FAMOTIDINE 20 MG TAB PO SCH (21:45)
[2019-04-23] VITALS (33 sets, daily range): BP systolic 144–196; BP diastolic 72–105
[2019-04-23] MEDS: METHADONE 10 MG TAB (S0109) PO SCH ×5 (00:49→23:38)
[2019-04-23 05:16] LABS: HEMATOCRIT 40.4 % (42.0-52.0); HEMOGLOBIN 12.7 g/dl (13.5-17.5); MEAN CORPUSCULAR HGB CONC 31.4 g/dl (32.0-36.5); MEAN CORPUSCULAR VOLUME 85.8 fl (80.0-96.0); PLATELET COUNT, AUTOMATED 261 10^3/uL (150-450); RED BLOOD COUNT 4.71 10^6/uL (4.30-6.10); WHITE BLOOD COUNT 7.9 10^3/uL (4.0-10.0)
[2019-04-23 05:51] LABS: CALCIUM LEVEL 8.5 MG/DL (8.5-10.1); CREATININE FOR GFR 8.92 MG/DL (0.70-1.30); GLOMERULAR FILTRATION RATE 7.1 (>60); POTASSIUM SERUM 4.6 MEQ/L (3.5-5.1)
[2019-04-23] MEDS: DIVALPROEX 500MG *ER* TAB PO SCH ×2 (06:34→19:46)
--- NOTE | 2019-04-23 06:51 | ECGEPIP ---
[facility] - ED Test Date: 2019-04-22 Pat Name: LILY DENNIS Department: Room: - Gender: Male Ged Tutor: : 1980 Requested By: Kolby Gongora Order Number: [id number] Reading MD: Kelsi Forrest Measurements Intervals [place] Rate: 74 P: 74 HI: 209 QRS: 36 QRSD: 120 T: 70 QT: 428 QTc: 477 Interpretive Statements SINUS RHYTHM LEFT ATRIAL ENLARGEMENT MODERATE INTRAVENTRICULAR CONDUCTION DELAY SIMILAR 03/21/18 Electronically Signed on 04-23-2019 6:51:05 EST by Kelsi Forrest
--- NOTE | 2019-04-23 07:45 | CR ---
DATE OF CONSULTATION: 04/22/2019 REFERRING PHYSICIAN: Dr. Alex Watson REASON FOR CONSULTATION: Seizure. HISTORY OF PRESENT ILLNESS: Davian Lara is a 39-year-old man who was at his baseline state of health until around 4:00 a.m. in the morning. The patient's woke up and thought that he was hitting her. When she looked over, she realized that he was shaking due to a seizure. The seizure lasted for 30 seconds. He was confused and postictal for 15 minutes. When EMS got there, he was able to answer questions, although slow and lethargic. The patient had a seizure in 2012 when he was admitted at [facility] which was thought to be due to hypertensive emergency. The patient has history of chronic kidney disease and has been on hemodialysis. The patient also abused cocaine in the past. He had two failed kidney transplants. He used to go to [facility], but does not go there any longer. DIAGNOSTIC STUDIES: CT scan of head was unremarkable. Creatinine was 7.2, with capital GFR 9.1% and hemoglobin 11.9. PAST MEDICAL HISTORY: Hypertension, chronic kidney disease on hemodialysis, history of substance abuse, acid reflux, status post two rejected kidney transplants, chronic back pain, history of pneumonia, mitral and aortic valvular regurgitation, cyclic vomiting syndrome, anxiety. CURRENT MEDICATIONS: Amlodipine 10 mg by mouth daily, vitamin D3 2000 units daily, vitamin B12 1000 mcg by mouth daily, Lexapro 10 mg by mouth daily, Pepcid 40 mg by mouth daily, labetalol 400 mg by mouth twice a day, methadone 45 mg every 6 hours, Protonix 40 mg by mouth daily, prednisone 10 mg by mouth daily, Velphoro 1000 mg by mouth WM, Xanax 0.5 mg by mouth twice a day as needed, Dilaudid 8 mg by mouth four times a day as needed, Viagra 100 mg by mouth daily as needed, medical marijuana, Tylenol. ALLERGIES: - AMITRIPTYLINE - CYMBALTA - GABAPENTIN REVIEW OF SYSTEMS: All systems were reviewed and found to be noncontributory except as mentioned in history present illness. SOCIAL HISTORY: He used cocaine in the past. He smokes marijuana. He is on methadone and Dilaudid. PHYSICAL EXAMINATION: Blood pressure 167/86, pulse 90, 99% saturation on room air. Heart: Regular rate and rhythm. Lungs: Clear to auscultation. Abdomen: Soft, nontender, nondistended. No pedal edema. No musculoskeletal abnormalities. No rash. No signs of meningeal irritation. The patient is awake, alert, oriented to place, person and time. Normal speech, comprehension and repetition. Extraocular muscles are intact. No facial weakness. Tongue and uvula are midline. 5/5 strength in all four extremities. Deep tendon flexes 1+ in arms and knees and absent at ankles. Gait is normal. No dysmetria or nystagmus. Visual lincoln are full to confrontation. ASSESSMENT: 1. Suspected generalized tonic-clonic seizures in 2012 and nocturnal seizure today. 2. History of end-stage renal disease on hemodialysis. 3. History of substance abuse without alcoholism. PLAN: 1. Electroencephalogram (EEG). 2. Depakote ER 500 mg by mouth twice a day. 3. He is aware that he should not be driving. MTDD
[2019-04-23] MEDS: SUCROFERRIC OXYHYDROXIDE 500MG CHEW TAB (VELPHORO) PO SCH ×3 (08:00→17:44)
--- NOTE | 2019-04-23 08:12 | IPNPDOC ---
Subjective Date Seen The patient was seen on 04/23/19. Subjective Chief Complaint/HPI Seizure activity Events since last encounter Patient had episode of disorientation overnight. Today, states his symptoms are near resolved. Has had a SIMS, vomiting and feeling poorly for 4 days. States he has kept none of his medications down. Woke today feeling well. Currently on Cardene drip for HTN. EEG planned for today. Constitutional: Denies: Chills, Fever, Night Sweats ENT: Reports: Head Aches (mild, near resolved. ) Skin: Denies: Rash, Lesions, Breakdown Pulmonary: Denies: Dyspnea, Cough, Pleuritic Chest Pain, Other Symptoms Cardiovascular: Denies: Chest Pain, Palpitations, Orthopnea, Paroxysmal Noc. Dy spnea, Lt Headedness Gastrointestinal: Denies: Nausea, Vomiting, Abdominal Pain, Diarrhea, Constipation Genitourinary: Denies: Dysuria, Frequency, Incontinence, Retention Musculoskeletal: Denies: Neck Pain, Back Pain, Joint Pain, Muscle Pain, Spasms Neurological: Denies: Weakness, Numbness, Change in speech, Confusion Psych: Reports: Mood Normal; Denies: Depression, Memory Issues Objective Physical Examination General Exam: Positive: Alert, No Acute Distress Eye Exam: Positive: PERRLA, Conjunctiva & lids normal, EOMI; Negative: Sclera icteric ENT Exam: Positive: Atraumatic, Mucous membr. moist/pink, Pharynx Normal Neck Exam: Positive: Supple; Negative: JVD, thyromegaly Chest Exam: Positive: Clear to auscultation, Normal air movement Heart Exam: Positive: Rate Normal, Regular Rhythm, Normal S1, Normal S2; Negative: Murmurs, Rubs Telemetry: Positive: No significant arrhythmia, Tachycardia Abdomen Exam: Positive: Normal bowel sounds, Soft; Negative: Tenderness, Hepatospenomegaly Neuro Exam: Positive: Normal Gait, Normal Speech, Cranial Nerves 3-12 NL, Reflexes 2+ Psych Exam: Positive: Mental status NL, Mood NL, Oriented x 3 Assessment /Plan Problems (1) Hypertensive emergency Status: Acute Problem Text: Will resume patient's at home Labetalol 400 mg po bid. Wean down on Cardene drip. Will keep BP to systolic of 140 while weaning the drip and starting the Labetalol. (2) Pericardial effusion Status: Acute Problem Text: Noted on CT scan. Echo pending. (3) ESRD (end stage renal disease) on dialysis Status: Chronic Problem Text: nephrology has been consulted. Planned for bedside HD today. AVF patent. (4) Seizure Status: Acute Problem Text: EEG today. neuro consulted. Continue Depakote ER 500 mg po bid. Most likely secondary to hypertensive urgency. (5) Chronic pain Status: Chronic Problem Text: Chronically takes methadone and Dilaudid from Irma Navarrete, [facility]. Is a chronic marijuana user. (6) Cyclical vomiting syndrome Status: Acute Problem Text: may be related to marijuana use. This was discussed with patient. Will start on clear liquids and advance diet as tolerated. Zofran IV prn. (7) Substance abuse Status: Chronic Problem Text: prior hx of substance abuse. Patient denies drugs other than marijuana. Tox sent and is pending. (8) Anxiety Status: Chronic Problem Text: Continue prn alprazolam and Lexapro. Plan/VTE VTE Prophylaxis Ordered?: Yes Plan Diet: Advance Activity: Bedrest Diagnostics: Repeat Labs in AM, Other Diagnostics (EEG) Anticipated Discharge: Home VS, I&O, 24H, [facility] Vital Signs/I&O Vital Signs Date Time Temp Pulse Resp B/P (MAP) Pulse Ox O2 Delivery O2 Flow Rate FiO2 04/23/19 06:30 117 182/105 (130) 85 Room Air 04/23/19 04:00 99.0 18 I&O- Last 24 Hours up to 6 AM 04/23/19 06:00 Intake Total 222.5 ml Balance 222.5 ml Laboratory Data 24H LABS Laboratory Tests 2 04/22/19 09:59: 04/23/19 05:03: Nucleated Red Blood Cells % (auto) 0.0, Anion Gap 13, Glomerular Filtration Rate 7.1L, Calcium Level 8.5 CBC/BMP Laboratory Tests 04/23/19 05:03 Emerald Lebron [employer]CRA[employer] NAVIGATOR Apr 23, 2019 08:12
[2019-04-23] MEDS: LABETALOL 200 MG TAB PO SCH ×2 (08:36→19:45)
[2019-04-23] MEDS: ONDANSETRON 4MG/2ML VIAL (J2405) IV SCH ×3 (08:37→19:46)
[2019-04-23] MEDS: ENOXAPARIN 30 MG/0.3 ML SYR (J1650) SC SCH (08:41)
[2019-04-23] MEDS ORDERED: predniSONE 20 MG TAB PO SCH (09:00)
[2019-04-23] MEDS: niCARdipine IV 40 MG in IV 1 EA IV SCH ×2 (10:00→17:20)
[2019-04-23] MEDS: ALPRAZolam 0.5 MG TAB PO PRN ×2 (12:04→23:58)
[2019-04-23] MEDS ORDERED: PILL CUTTER 1 EACH XX PRN (12:15)
[2019-04-23] MEDS ORDERED: LIDOCAINE 1% SDV 5 ML VIAL SQ ONE (13:00)
[2019-04-23] MEDS ORDERED: HEPARIN 1,000 UNITS/ML 10ML VIAL (FOR RADIOLOGY& DIALYSIS ONLY)(J1644-10) IV ONE (13:00)
[2019-04-23 13:08] LABS: CK-MB VALUE MASS 2.9 NG/ML (<3.6); MB/CK RELATIVE INDEX 2.01 (< OR =4); TROPONIN I 0.03 NG/ML (< 0.10)
[2019-04-23] MEDS: HYDROmorphone (DILAUDID) 4 MG TAB PO PRN ×2 (17:48→23:57)
[2019-04-23] MEDS: CYANOCOBALAMIN 500 MCG TAB PO SCH (19:45)
[2019-04-23] MEDS: ESCITALOPRAM OXALATE 10 MG TAB (LEXAPRO) PO SCH (19:45)
[2019-04-23] MEDS: FAMOTIDINE 20 MG TAB PO SCH (19:46)
--- NOTE | 2019-04-23 20:37 | IPN ---
DATE: 04/23/2019 SUBJECTIVE: The patient was seen and examined at the bedside today morning in the intensive care unit (ICU). He continues to be on nicardipine infusion. However, rate has been decreased to 2.5 mg. The patient has been restarted on labetalol 400 mg by mouth twice a day. His blood pressures are significantly better controlled today. He reports his abdominal pain is better. He denies any more episodes of seizures. He was seen by neurology yesterday. Today is the patient's regular day of dialysis. OBJECTIVE: VITAL SIGNS: Temperature is 99 degrees Fahrenheit, blood pressure 162/75, pulse is 92, respiratory rate of 20, saturating 99% on room air. INTAKE AND OUTPUT: There is no urine output recorded. Weight in the bed scale is 77.5 kg. PHYSICAL EXAMINATION: GENERAL: The patient is awake, alert, oriented times three, laying in bed in no apparent distress. HEAD AND NECK EXAM: Extraocular muscles intact. Pupils equally round and reactive to light. Mucous membranes are moist. Neck is supple. There is no jugular venous distention (JVD). CARDIOVASCULAR: S1, S2. Regular rate. No edema of the bilateral lower extremities. RESPIRATORY: Chest is clear to auscultation bilaterally. Bilateral equal air entry. No rales or rhonchi. ABDOMEN: Soft, positive bowel sounds. Old surgical scars in right lower quadrant and left lower quadrant and midline as well. No tenderness in the abdomen at this time. MUSCULOSKELETAL: No clubbing or cyanosis. Pulses are 2+. ARTERIOVENOUS (AV) AXIS: He has a left upper arm AV fistula with positive thrill and bruit. CENTRAL NERVOUS SYSTEM (IMMUNOCHEMIST): No focal deficit. Power is 5/5 in all extremities. LABORATORY REVIEW: Complete blood count (CBC) showed a WBC of 7.9, hemoglobin 12.7, platelets of 261. Basic metabolic panel (BMP) showed sodium 135, potassium 4.6, chloride 101, bicarbonate 21, BUN 33, creatinine is 8.9. Serum toxicology result is still pending. CURRENT INPATIENT MEDICATIONS: The patient's medications were all reviewed by me. He continues to be on nicardipine infusion. It has been weaned down to 2.5 mg per hour. He has been restarted on labetalol 400 mg by mouth twice a day. He has also been started on Lovenox 30 mg subcutaneous daily. I have decreased the prednisone dose back to 10 mg by mouth daily. No other change in medications today as compared with yesterday. ASSESSMENT AND PLAN: 1. End-stage renal disease. Today is the patient's regular day of dialysis. If he is able to weaned off his nicardipine, then he will be dialyzed in the dialysis center. Otherwise he would need bedside hemodialysis. 2. Hypertensive urgency. The patient is still on nicardipine drip. However, it has been weaned down to 2.5 mg per hour. Labetalol has been restarted. Once nicardipine is weaned off, he can be restarted on his home dose of amlodipine. Further optimization of fluid status with dialysis would also help improve his blood pressure. 3. Witnessed seizure activity. The patient was seen by neurology. He has been started on Depakote Extended Release 500 mg twice a day. An electroencephalogram (EEG) was also ordered. 4. History of cocaine abuse and high dose prescription opioid dependence. The patient continues to be on methadone and Dilaudid oral. Serum toxicology for cocaine is still pending. Blood pressures are better controlled. Continue benzodiazepine for anxiety. 5. Renal allograft rejection. The patient is not tender anymore and CAT scan did not show any significant difference in the left-sided renal allograft. Prednisone has been decreased to 10 mg daily. He would need to follow up with the transplant center as outpatient for transplant nephrectomy. Total critical care time spent in the management of this patient today morning in the ICU was 45 minutes, excluding all the procedures.
[2019-04-24] VITALS (22 sets, daily range): BP systolic 157–188; BP diastolic 72–99
[2019-04-24] MEDS: hydrALAZINE INJ 20 MG/ML VIAL IV PRN ×2 (00:03→05:50)
[2019-04-24] MEDS: niCARdipine IV 40 MG in IV 1 EA IV SCH ×2 (02:00→10:00)
[2019-04-24] MEDS: ONDANSETRON 4MG/2ML VIAL (J2405) IV SCH ×2 (02:00→08:39)
[2019-04-24 05:04] LABS: BASO % 0.6 % (0.0-1.0); EOS # 0.1 10^3/uL (0.0-0.5); EOS % 0.7 % (0.0-3.0); HEMATOCRIT 32.8 % (42.0-52.0); LYMPH # 1.5 10^3/uL (1.5-5.0); LYMPH % 21.3 % (24.0-44.0); MEAN CORPUSCULAR HEMOGLOBIN 27.1 pg (27.0-33.0); MEAN CORPUSCULAR HGB CONC 31.1 g/dl (32.0-36.5); MEAN CORPUSCULAR VOLUME 87.2 fl (80.0-96.0); MONO # 0.8 10^3/uL (0.0-0.8); NEUTROPHILS # 4.6 10^3/uL (1.5-8.5); NEUTROPHILS % 66.3 % (36.0-66.0); PLATELET COUNT, AUTOMATED 226 10^3/uL (150-450); RED BLOOD COUNT 3.76 10^6/uL (4.30-6.10); WHITE BLOOD COUNT 6.9 10^3/uL (4.0-10.0)
[2019-04-24 05:09] LABS: HEMOGLOBIN 10.2 g/dl (13.5-17.5)
[2019-04-24 05:25] LABS: BILIRUBIN,TOTAL 0.5 MG/DL (0.2-1.0); CALCIUM LEVEL 7.9 MG/DL (8.5-10.1); CREATININE FOR GFR 5.99 MG/DL (0.70-1.30); GLOMERULAR FILTRATION RATE 11.2 (>60); POTASSIUM SERUM 4.1 MEQ/L (3.5-5.1); TOTAL PROTEIN 6.6 GM/DL (6.4-8.2)
[2019-04-24] MEDS: HYDROmorphone (DILAUDID) 4 MG TAB PO PRN ×3 (05:49→23:13)
[2019-04-24] MEDS: METHADONE 10 MG TAB (S0109) PO SCH ×4 (05:50→23:09)
[2019-04-24] MEDS: SUCROFERRIC OXYHYDROXIDE 500MG CHEW TAB (VELPHORO) PO SCH ×3 (08:38→17:23)
[2019-04-24] MEDS: DIVALPROEX 500MG *ER* TAB PO SCH ×2 (08:39→20:22)
[2019-04-24] MEDS: LABETALOL 200 MG TAB PO SCH ×2 (08:39→20:21)
[2019-04-24] MEDS: predniSONE 10 MG TAB PO SCH (08:39)
[2019-04-24] MEDS: ENOXAPARIN 30 MG/0.3 ML SYR (J1650) SC SCH (08:40)
--- NOTE | 2019-04-24 09:22 | IPN ---
DATE: 04/24/2019 Davian is seen in the intensive care unit (ICU). He was admitted with hypertensive urgency, suspected cyclical vomiting syndrome, pericardial effusion, seizure disorder probably secondary to hypertensive urgency, chronic substance abuse, chronic pain related to medications he received for a renal transplant, followed by Irma Navarrete NP from [facility]. He has chronic anxiety and depression. He is being weaned off his Cardene. I had hoped to get him out of the unit yesterday but his blood pressure went up and we had to put him back on a nicardipine drip. He has had no recurrence of seizures, nausea or vomiting since admission. PHYSICAL EXAMINATION: Blood pressure 183/97, pulse 74, 99% oxygen saturation. GENERAL APPEARANCE: Chronically ill-appearing. I have not seen him since August 2018. He has lost weight since then. He does not look healthy. HEENT: Unremarkable. LUNGS: Clear. HEART: Regular rate and rhythm. ABDOMEN: Soft, nondistended. No masses. No peripheral edema. No sensation in the lower extremities below the knees. LABORATORY DATA: White count 6.9, hemoglobin 10.2, platelets 226. Sodium 139, potassium 4.1. Echocardiogram showed LVH, ejection fraction of 65% to 70%, small pericardial effusion without chamber collapse. No respiratory variation. IMPRESSION: 1. Hypertension urgency. Weaning down the nicardipine and then we will start amlodipine 5 mg twice a day which we can then change to 10 mg daily before discharge for improved compliance. Continue his labetalol. He is getting doses of IV hydralazine which we can discontinue once his oral agents become more effective. 2. Seizure secondary to hypertensive urgency. There has been no recurrence of this. 3. End-stage renal disease. Per nephrology. 4. Anemia. Per nephrology. 5. Chronic anxiety/depression. He is back on his typical medications for this. 6. Chronic pain syndrome. I am concerned about the cyclical vomiting. I have put a consult in for Irma Navarrete NP from the [facility] to see him in the hospital.
[2019-04-24] MEDS: ALPRAZolam 0.5 MG TAB PO PRN ×2 (11:13→23:09)
[2019-04-24] MEDS: amLODIPine 5 MG TAB PO SCH ×2 (11:15→20:21)
[2019-04-24 14:13] LABS: PROLACTIN 12.5 NG/ML (2.1-17.7)
--- NOTE | 2019-04-24 17:35 | IPNPDOC ---
Text Note Date of Service The patient was seen on 04/24/19. NOTE I was contacted by Stefan Palacio MD regarding Davian's adission to the ICU for hypertensive emergency. 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 He has been getting hemodialysis and is awaiting removal of his failed transplanted kidney. He has alway been forthc oming about using cannabis for reducing his neuropathic pain and anxiety. Today he look quite well, his BP was 165/87, pulse 88. He was in no acute distress and reported other than problems with pain in the area of hi "inflamed" failed kidney and some problems with discomfort from hernias, he is feeling quite well. He reported after developing emesis prior to coming to the hospital, he was unable to keep any of his medications down including labetolol and methadone. The cause of his emesis is not clearly known and he reported to me he did not have any cannabis available prior to developing the vomiting and subsequent hypertension and seizure. He may have some cannabis induced hyperemesis syndrome though if he was not using cannabis just prior to this event cannabis may not be the cause of his emesis. He has an appointment with me next week in clinic he hopes to keep. His serum tox screen is pending at this time. VS,Kenny, I+O VS, Kenny, I+O Laboratory Tests 04/24/19 04:49 Vital Signs Date Time Temp Pulse Resp B/P (MAP) Pulse Ox O2 Delivery O2 Flow Rate FiO2 04/24/19 16:00 78 163/87 (112) 04/24/19 12:00 98.9 18 96 Room Air I&O- Last 24 Hours up to 6 AM 04/24/19 05:59 Intake Total 1545 ml Output Total 1000 ml Balance 545 ml Irma ZACARIAS [employer] MARKETING ANALYST Apr 24, 2019 17:35
--- NOTE | 2019-04-24 18:37 | EEG ---
DATE OF PROCEDURE: 04/23/2019 REFERRING PHYSICIAN: Dr. Alex Watson DIAGNOSIS: Seizure. EED NUMBER: [id number] HISTORY: The patient is a 39-year-old man who had generalized tonic-clonic seizure this time and 2013. This EEG was done to rule out epileptic potential. He is currently taking methadone, Xanax, Dilaudid, Viagra, medical marijuana, Lexapro, Depakote, etc. TECHNICAL DESCRIPTION: This digital EEG was recorded by 21 scalp, ear and two EKG electrodes and was reviewed in bipolar and referential montages following reformatting in 10-20 international electrode placement system. INTERPRETATION: The patient was noted to be in awake and drowsy states during this EEG. Resting awake background rhythm consisted of well-formed posterior dominant rhythm with anterior/posterior gradient comprising of 10 Hz alpha activity measuring 15-60 microvolts in amplitude, which was symmetric and reactive to eye opening. Attenuation of posterior dominant rhythm was seen during transition into drowsiness. Stage I and II sleep were reviewed and were symmetric bilaterally. Hyperventilation could not be performed. Photic stimulation remained unremarkable. EKG revealed normal sinus rhythm. No focal, lateralizing or epileptiform abnormalities were seen. No relevant clinical activity was noted. CONCLUSION: This EEG in awake, drowsy states, stage I and II sleep is within normal limits.
[2019-04-24] MEDS: FAMOTIDINE 20 MG TAB PO SCH (20:21)
[2019-04-24] MEDS: CYANOCOBALAMIN 500 MCG TAB PO SCH (20:21)
[2019-04-24] MEDS: ESCITALOPRAM OXALATE 10 MG TAB (LEXAPRO) PO SCH (20:22)
[2019-04-24] MEDS: ONDANSETRON 4MG/2ML VIAL (J2405) IV PRN (23:18)
[2019-04-25] VITALS (22 sets, daily range): BP systolic 157–189; BP diastolic 80–102
[2019-04-25 04:56] LABS: BASO % 0.3 % (0.0-1.0); EOS # 0.1 10^3/uL (0.0-0.5); EOS % 1.5 % (0.0-3.0); HEMATOCRIT 31.4 % (42.0-52.0); HEMOGLOBIN 9.5 g/dl (13.5-17.5); LYMPH # 1.5 10^3/uL (1.5-5.0); LYMPH % 25.3 % (24.0-44.0); MEAN CORPUSCULAR HEMOGLOBIN 27.2 pg (27.0-33.0); MEAN CORPUSCULAR HGB CONC 30.3 g/dl (32.0-36.5); MONO # 0.8 10^3/uL (0.0-0.8); MONO % 12.7 % (0.0-5.0); NEUTROPHILS # 3.5 10^3/uL (1.5-8.5); NEUTROPHILS % 59.9 % (36.0-66.0); PLATELET COUNT, AUTOMATED 197 10^3/uL (150-450); RED BLOOD COUNT 3.49 10^6/uL (4.30-6.10); WHITE BLOOD COUNT 5.9 10^3/uL (4.0-10.0)
[2019-04-25 05:21] LABS: ALBUMIN 3.1 GM/DL (3.2-5.2); BILIRUBIN,TOTAL 0.5 MG/DL (0.2-1.0); CALCIUM LEVEL 8.2 MG/DL (8.5-10.1); CREATININE FOR GFR 7.93 MG/DL (0.70-1.30); GLOMERULAR FILTRATION RATE 8.1 (>60); POTASSIUM SERUM 4.1 MEQ/L (3.5-5.1); TOTAL PROTEIN 6.4 GM/DL (6.4-8.2)
[2019-04-25] MEDS: METHADONE 10 MG TAB (S0109) PO SCH ×4 (06:03→23:47)
[2019-04-25] MEDS: LABETALOL 200 MG TAB PO SCH ×2 (06:53→20:21)
[2019-04-25] MEDS: ENOXAPARIN 30 MG/0.3 ML SYR (J1650) SC SCH (06:53)
[2019-04-25] MEDS: DIVALPROEX 500MG *ER* TAB PO SCH ×2 (06:54→20:21)
[2019-04-25] MEDS: predniSONE 10 MG TAB PO SCH (06:54)
[2019-04-25] MEDS: SUCROFERRIC OXYHYDROXIDE 500MG CHEW TAB (VELPHORO) PO SCH ×3 (06:54→18:49)
[2019-04-25] MEDS: amLODIPine 5 MG TAB PO SCH (06:54)
[2019-04-25] MEDS: HYDROmorphone (DILAUDID) 4 MG TAB PO PRN ×3 (07:54→23:03)
[2019-04-25] MEDS ORDERED: amLODIPine 5 MG TAB PO ONE (08:30)
[2019-04-25] MEDS: ALPRAZolam 0.5 MG TAB PO PRN ×2 (09:01→23:01)
[2019-04-25] MEDS ORDERED: DARBEPOETIN 100 MCG/0.5 ML *DIALYSIS* SYRINGE (J0882) IV SCH (10:00)
[2019-04-25] MEDS ORDERED: HEPARIN 1,000 UNITS/ML 10ML VIAL (FOR RADIOLOGY& DIALYSIS ONLY)(J1644-10) IV ONE (10:15)
--- NOTE | 2019-04-25 13:09 | IPNPDOC ---
Subjective Date Seen The patient was seen on 04/25/19. Subjective Chief Complaint/HPI feels better, no nausea General: Denies: Chills, Night Sweats Constitutional: Denies: Chills Pulmonary: Denies: Dyspnea, Pleuritic Chest Pain Cardiovascular: Denies: Chest Pain, Palpitations Gastrointestinal: Denies: Nausea, Vomiting, Abdominal Pain Genitourinary: Denies: Dysuria Hematologic: Denies: Bruising Neurological: Denies: Weakness Psych: Reports: Mood Normal Objective Physical Examination General Exam: Positive: Alert, No Acute Distress Eye Exam: Positive: PERRLA, Conjunctiva & lids normal, EOMI; Negative: Sclera icteric ENT Exam: Positive: Atraumatic, Mucous membr. moist/pink, Pharynx Normal Neck Exam: Positive: Supple; Negative: JVD, thyromegaly Chest Exam: Positive: Clear to auscultation, Normal air movement Heart Exam: Positive: Rate Normal, Regular Rhythm, Normal S1, Normal S2; Negative: Murmurs, Rubs Telemetry: Positive: No significant arrhythmia, Tachycardia Abdomen Exam: Positive: Normal bowel sounds, Soft, Hernia (small umbilical hernia, non-tender; left inguinal hernia noted as well, non-tender); Negative: Tenderness, Hepatospenomegaly Neuro Exam: Positive: Normal Gait, Normal Speech, Cranial Nerves 3-12 NL, Reflexes 2+ Psych Exam: Positive: Mental status NL, Mood NL, Oriented x 3 Assessment /Plan Problems (1) Hypertensive emergency Status: Acute Problem Text: 04/24: off drip. BP improved. can move to PCU. Dr. Tinoco anticipates that HD may improve pressures. Will resume patient's at home Labetalol 400 mg po bid. Wean down on Cardene drip. Will keep BP to systolic of 140 while weaning the drip and starting the Labetalol. (2) Pericardial effusion Status: Acute Problem Text: 04/24: small effusion. no hemodynamic compromise. Noted on CT scan. Echo pending. (3) ESRD (end stage renal disease) on dialysis Status: Chronic Problem Text: 04/24: in HD this am. suspect that dysfunctional transplanted kidney may play a role in driving bp elevation. nephrology has been consulted. Planned for bedside HD today. AVF patent. (4) Seizure Status: Acute Problem Specific Plan: Monitor Clinically Problem Text: 04/24: EEG normal per Dr. Moreno. EEG today. neuro consulted. Continue Depakote ER 500 mg po bid. Most likely secondary to hypertensive urgency. (5) Chronic pain Status: Chronic Problem Specific Plan: Monitor Clinically Problem Text: Chronically takes methadone and Dilaudid from Irma Navarrete, [facility]. Is a chronic marijuana user. (6) Cyclical vomiting syndrome Status: Acute Problem Specific Plan: Monitor Clinically Problem Text: may be related to marijuana use. This was discussed with patient. Will start on clear liquids and advance diet as tolerated. Zofran IV prn. (7) Substance abuse Status: Chronic Problem Text: prior hx of substance abuse. Patient denies drugs other than mar ijuana. Tox sent and is pending. (8) Anxiety Status: Chronic Problem Text: Continue prn alprazolam and Lexapro. (9) Left inguinal hernia Status: Chronic Response to Treatment: Stable Problem Specific Plan: Monitor Clinically (10) Umbilical hernia without mention of obstruction or gangrene Status: Chronic Response to Treatment: Stable Problem Specific Plan: Monitor Clinically Plan/VTE VTE Prophylaxis Ordered?: Yes Plan Diet: Advance Activity: Bedrest Diagnostics: Repeat Labs in AM, Other Diagnostics (EEG) Anticipated Discharge: Home VS, I&O, 24H, [facility] Vital Signs/I&O Vital Signs Date Time Temp Pulse Resp B/P (MAP) Pulse Ox O2 Delivery O2 Flow Rate FiO2 04/25/19 08:24 16 04/25/19 07:56 168/98 (121) 04/25/19 07:54 Room Air 04/25/19 07:43 98.6 70 98 I&O- Last 24 Hours up to 6 AM 04/25/19 06:00 Intake Total 900 ml Output Total 0 ml Balance 900 ml Laboratory Data 24H LABS Laboratory Tests 2 04/25/19 04:45: Immature Granulocyte % (Auto) 0.3, Neutrophils (%) (Auto) 59.9, Lymphocytes (%) (Auto) 25.3, Monocytes (%) (Auto) 12.7H, Eosinophils (%) (Auto) 1.5, Basophils (%) (Auto) 0.3, Neutrophils # (Auto) 3.5, Lymphocytes # (Auto) 1.5, Monocytes # (Auto) 0.8, Eosinophils # (Auto) 0.1, Basophils # (Auto) 0.0, Nucleated Red Blood Cells % (auto) 0.0, Anion Gap 8, Glomerular Filtration Rate 8.1L, Calcium Level 8.2L, Total Bilirubin 0.5, Aspartate Amino Transf (AST/SGOT) 13, Alanine Aminotransferase (ALT/SGPT) 13, Alkaline Phosphatase 98, Total Protein 6.4, Albumin 3.1L, Albumin/Globulin Ratio 0.94L CBC/BMP Laboratory Tests 04/25/19 04:45 Dank Davenport MD Apr 25, 2019 13:09
[2019-04-25] MEDS: **hydrALAZINE HCL** 25 MG TAB PO SCH ×2 (16:27→22:04)
[2019-04-25] MEDS: cloNIDine 0.1 MG TAB PO SCH (18:45)
[2019-04-25] MEDS: ESCITALOPRAM OXALATE 10 MG TAB (LEXAPRO) PO SCH (20:20)
[2019-04-25] MEDS: CYANOCOBALAMIN 500 MCG TAB PO SCH (20:21)
[2019-04-25] MEDS: FAMOTIDINE 20 MG TAB PO SCH (20:21)
[2019-04-26 04:00] VITALS: BP 175/89
[2019-04-26] MEDS: **hydrALAZINE HCL** 25 MG TAB PO SCH (04:21)
[2019-04-26 05:44] LABS: BASO % 0.5 % (0.0-1.0); EOS # 0.1 10^3/uL (0.0-0.5); EOS % 1.3 % (0.0-3.0); HEMATOCRIT 33.1 % (42.0-52.0); HEMOGLOBIN 10.1 g/dl (13.5-17.5); LYMPH # 1.7 10^3/uL (1.5-5.0); LYMPH % 26.6 % (24.0-44.0); MEAN CORPUSCULAR HEMOGLOBIN 27.2 pg (27.0-33.0); MEAN CORPUSCULAR HGB CONC 30.5 g/dl (32.0-36.5); MONO # 0.8 10^3/uL (0.0-0.8); MONO % 11.8 % (0.0-5.0); NEUTROPHILS # 3.8 10^3/uL (1.5-8.5); NEUTROPHILS % 59.5 % (36.0-66.0); PLATELET COUNT, AUTOMATED 219 10^3/uL (150-450); RED BLOOD COUNT 3.72 10^6/uL (4.30-6.10); WHITE BLOOD COUNT 6.4 10^3/uL (4.0-10.0)
[2019-04-26 06:10] LABS: ALBUMIN 3.5 GM/DL (3.2-5.2); BILIRUBIN,TOTAL 0.6 MG/DL (0.2-1.0); CALCIUM LEVEL 8.5 MG/DL (8.5-10.1); CREATININE FOR GFR 5.39 MG/DL (0.70-1.30); GLOMERULAR FILTRATION RATE 12.7 (>60); TOTAL PROTEIN 6.9 GM/DL (6.4-8.2)
[2019-04-26] MEDS: METHADONE 10 MG TAB (S0109) PO SCH ×2 (06:32→12:31)
[2019-04-26 08:00] VITALS: BP 155/78
[2019-04-26] MEDS: DIVALPROEX 500MG *ER* TAB PO SCH (08:39)
[2019-04-26] MEDS: ENOXAPARIN 30 MG/0.3 ML SYR (J1650) SC SCH (08:39)
[2019-04-26] MEDS: ONDANSETRON 4MG/2ML VIAL (J2405) IV PRN (08:39)
[2019-04-26] MEDS: SUCROFERRIC OXYHYDROXIDE 500MG CHEW TAB (VELPHORO) PO SCH (08:39)
[2019-04-26] MEDS: HYDROmorphone (DILAUDID) 4 MG TAB PO PRN (08:40)
[2019-04-26] MEDS: ALPRAZolam 0.5 MG TAB PO PRN (08:41)
[2019-04-26] MEDS: LABETALOL 200 MG TAB PO SCH (08:42)
[2019-04-26] MEDS: cloNIDine 0.1 MG TAB PO SCH (08:42)
[2019-04-26] MEDS: predniSONE 10 MG TAB PO SCH (08:42)
[2019-04-26] MEDS ORDERED: MUPIROCIN 2% OINT 22 GM TUBE TOP SCH (09:00)
[2019-04-26] MEDS ORDERED: amLODIPine 10 MG TAB PO SCH (09:00)
[2019-04-26] MEDS ORDERED: LOSA25TA14 PO (09:58)
[2019-04-26] MEDS ORDERED: CLONI1TA PO (09:58)
[2019-04-26] MEDS ORDERED: HYDR25TA PO (09:58)
[2019-04-26] MEDS ORDERED: **hydrALAZINE** 50 MG TAB PO SCH (10:00)
[2019-04-26] MEDS ORDERED: MUPI2OI TOP (10:02)
[2019-04-26] MEDS ORDERED: DOXY100C PO (10:14)
--- NOTE | 2019-04-26 10:37 | IPN ---
DATE: 04/25/2019 SUBJECTIVE: The patient was seen and examined at the bedside today morning during hemodialysis procedure. His blood pressures are better controlled. His Cardene was weaned off yesterday. He also got electroencephalogram (EEG) done yesterday. The patient is tolerating the hemodialysis procedure well today. OBJECTIVE: Vital signs: Temperature is 99.1 Fahrenheit, blood pressure 170/90, pulse is 69, respiratory of 18, saturating 98% on room air. Intake and output. There is no urine output recorded, weight in the bed scale is 79.9 kg. PHYSICAL EXAMINATION: General: The patient is awake, alert, oriented x3, laying in bed getting hemodialysis done. Head and neck exam: Extraocular muscles intact. Pupils equally round and reactive to light. Mucous membranes are moist. Neck is supple. There is no JVD. Cardiovascular: S1, S2, regular rate. No edema of the bilateral lower extremities. Respiratory: Chest is clear to auscultation bilaterally. Bilateral equal air entry. No rales or rhonchi. Abdomen: Soft, positive bowel sounds. Nontender. Multiple surgical scars in the abdomen. Left lower quadrant renal allograft is nontender. Musculoskeletal: No clubbing or cyanosis. Pulses are 2+. Skin: The patient has multiple skin tattoos. AV axis left upper arm, AV fistula is being used for dialysis. TRAVELING PHLEBOTOMIST: No focal deficit. Power is 5/5 in all extremities. LABORATORY REVIEW: Complete blood count (CBC) showed white blood count (WBC) of 5.9, hemoglobin 9.5, platelets are 197. Basic metabolic panel (BMP) showed sodium 139, potassium 4.1, chloride 100, bicarbonate 31, BUN 40, creatinine 7.9, albumin is 3.1. Electroencephalogram (EEG) done yesterday showed awake, drowsy, stage I and II sleep is within normal limits CURRENT INPATIENT MEDICATIONS: The patient's medications were all reviewed by me. He has been started on amlodipine 10 mg by mouth daily. He has also been started on clonidine 0.1 mg by mouth twice a day. He has also been started on hydralazine 25 mg by mouth every six hourly and he continues on labetalol 400 mg by mouth twice a day. No other change in the medications today as compared with yesterday. ASSESSMENT/PLAN: 1. End-stage renal disease. The patient is being dialyzed according to his regular schedule. Ultrafiltration goal is 2.5 liters to optimize his blood pressure. 2. Hypertensive urgency. The patient was on nicardipine drip, which was weaned off yesterday. He is currently on labetalol, amlodipine, hydralazine and clonidine. I would avoid further escalation of the regimen since the patient is going to have fluid removed during dialysis as well. 3. Seizure like activity at home. The patient is currently on Depakote ER. Electroencephalogram (EEG) done yesterday showed no seizure activity. 4. Renal allograft rejection. The patient is currently on prednisone 10 mg by mouth daily. He denies any pain at the transplant site. He is awaiting transplant nephrectomy as outpatient. 5. History of marijuana abuse, cocaine abuse in the past and high dose of prescription opioid dependence. The patient was seen by palliative care nurse practitioner. He continues to be on methadone and dilaudid. DISPOSITION: If the patient's blood pressures remained stable after dialysis, hopefully he should be able to be discharged over the next 24 hours. MTDD
[2019-04-26 12:25] VITALS: BP 136/65
[2019-04-26 12:31] VITALS: BP 136/65
[2019-04-26] MEDS ORDERED: **hydrALAZINE HCL** 25 MG TAB PO SCH (13:00)
--- NOTE | 2019-04-26 20:23 | IPN ---
DATE: 04/26/2019 Mr. Gutierrez is seen this morning on his bedside. He is sitting in the chair and feels better today. He was dialyzed yesterday which he tolerated well and 2.5 liters of fluid was removed. His blood pressure was quite high on admission when he was admitted with seizures. His toxicology screen was negative for salicylates, acetaminophen, and ethyl alcohol and the rest is still pending. The patient is feeling much better other than discomfort in his right hand where he had peripheral IV line removed yesterday. He denies any dyspnea, chest pain, nausea or vomiting. This morning I received a phone call from Dr. Davenport and discussed about his antihypertensive regimen. His blood pressure has improved and we agreed for adding an angiotensin receptor michael. PHYSICAL EXAMINATION: Temperature is 98 degrees Fahrenheit, heart rate 60 per minute and respiratory rate 18 per minute. Blood pressure 155/78 mmHg and oxygen saturation 98% on room air. His head is atraumatic. Neck supple and without JVD or thyroid enlargement. Heart sounds are regular and lungs clear to auscultation. Abdomen soft and nontender and bowel sounds are normal. Extremities without any cyanosis or clubbing. Left arm AV fistula is patent. He has small area of erythema and a needle site where he had a peripheral IV on his right hand. It is covered now with a dressing. Neurologically he is awake, alert and oriented times three. Today's labs show sodium 135, potassium 4.0, CO2 29, BUN 29 and creatinine 5.39. WBC count 6.4, hemoglobin 10.1 and hematocrit 33.1. PROBLEMS: 1. End-stage renal disease. The patient was dialyzed yesterday and his regular dialysis days are Saturday, and Saturday. I have advised him to call the outpatient dialysis clinic tomorrow and we will consider to dialyze him again tomorrow for an extra session in order to help with the blood pressure and volume control. 2. Hypertension. Blood pressure is much better and I have recommended to add small dose of angiotensin receptor michael for blood pressure control and he will continue with his chronic medications as previously. We will followup as an outpatient and make further adjustments as needed. 3. Anemia. His anemia is stable at present and does not need any urgent intervention. 4. Kidney transplant status. The patient had a transplant kidney which has failed and he is back on dialysis. He is likely to require a transplant nephrectomy and has already seen the transplant surgery group in [place]. He will followup as outpatient. DISPOSITION: From a renal standpoint, the patient is stable and can be discharged to home today and followup as an outpatient.
--- NOTE | 2019-04-29 08:56 | DSES ---
DATE OF ADMISSION: 04/22/2019 DATE OF DISCHARGE: 04/26/2019 HISTORY: Mr. Lara has a history of chronic renal failure status post renal transplant and rejection. The residual kidney in his left lower abdomen is thought to be a source for ongoing humeral release triggers blood pressure control difficulties for him. He was admitted with hypertensive urgency and possible seizure activity. Apparently, he was observed to be seizing by his spouse or girlfriend, and did last about 30 seconds. He had a seizure before in 2012. No stroke was identified. Electroencephalogram (EEG) did not show seizure activity. With his long complex medical history with multiple interventions including background of Ash[place] disease, end-stage renal disease on hemodialysis with associated anemia, episode of Clostridium (C) difficile colitis in 2010, Campylobacter enteritis in 2011, history of pneumonias, neuropathic leg pain believed to be a side effect of tacrolimus, chronic opiate use and methadone and Dilaudid, aortic regurgitation and mitral regurgitation echo 2011, avascular necrosis of the right calcaneus and talus, and history of cyclical vomiting syndrome, which has been associated with marijuana use. He had a history of high dose marijuana use. He has a left arteriovenous (AV) fistula, which is currently functional and used for his dialysis. During his hospital stay his pressures were significantly elevated, which is really what prompted his admission 227/111 initially, quickly it came into semblance of control with pressures ranging between 164/84. After dialysis is restarted his pressures moderated some and then clonidine was added yesterday, which brought his pressures, which at that time had been 189/89 gradually down to 160s and then 155, then 145 according to the patient when seen this morning. Laboratory at discharge includes hemoglobin of 10.1, platelet count 219,000, white count of 6400, and sodium 135, potassium 4.0, creatinine 5.39, BUN 29, calcium 8.5, albumin 3.5. On the day of discharge, he points out that he has a reddened, slightly swollen area on his right hand where there was an IV site. It looks to be consistent with a localized skin infection. He has a history of ALLERGIES; AMITRIPTYLINE, DULOXETINE, and GABAPENTIN. Culture was obtained from this wound on day of discharge. He was sent home Bactroban and oral doxycycline pending culture results, which may necessitate change to an alternative agent. Dr. Sanchez is aware of the plan at discharge. We have also added losartan 25 mg to see if this can reduce renin associated pressure increases that may be falling from his dying kidney. He is routinely monitored for hyperkalemia, so we do not anticipate this to be a problem for him. Discharge medications will include: - Tylenol 500 mg every 4-6 as needed pain - alprazolam 0.5 mg as needed anxiety - amlodipine 10 mg daily - labetalol 200 mg by mouth twice a day - hydralazine 25 mg four times a day - clonidine 0.1 mg twice a day - losartan 25 mg daily He will also be on mupirocin topical application to the lesion on his right hand and doxycycline 100 mg by mouth twice a day; 5 day prescription written pending culture results which will be collected before discharge. Additional medications include: - vitamin D3 2000 units daily - vitamin B12 1000 mcg daily - escitalopram 10 mg daily - famotidine 40 mg daily - hydromorphone 8 mg four times a day as needed pain - lidocaine and prilocaine cream apply to the site of his catheter for dialysis insertion - methadone 45 mg every 6 - pantoprazole 40 mg daily - prednisone 10 mg daily - Viagra 100 mg by mouth as required - sucroferric oxyhydroxide 500 mg tablets 2 tablets with meals Again, pending results include the culture from the right hand. New prescription includes hydralazine, losartan, clonidine, and doxycycline as well as Bactroban. Followup will be with dialysis per Dr. Sanchez's direction. Followup with primary care physician in 1 week is advised. Consider switching from clonidine by mouth to topical TTS patch since it has generally been tolerated and comparably effective unless the addition of losartan obviates the need for this therapeutic entirely.
== END 2019-04-26 13:08 | disposition home or self-care (01) | DRG 304 ==
LOC: M ED 06:38 → EDBD 06:38 → M ED INP 10:51 → ENRESERV 11:06 → M ICU 13:08 → M PCU 04-25 23:38
PROVIDERS: ADMIT Family Medicine; ATTEND Family Medicine
PROC: 5A1D70Z Performance of Urinary Filtration, Intermittent, Less than 6 Hours Per Day (ICD-10-PCS; principal; 2019-04-23)
DX: I16.0 Hypertensive urgency (principal); N18.6 End stage renal disease; I31.3 Pericardial effusion (noninflammatory); T86.11 Kidney transplant rejection; I12.0 Hypertensive chronic kidney disease with stage 5 chronic kidney disease or end stage renal disease; N39.8 Other specified disorders of urinary system; Z99.2 Dependence on renal dialysis; D63.1 Anemia in chronic kidney disease; G89.29 Other chronic pain; M54.5 Low back pain; E53.8 Deficiency of other specified B group vitamins; Z87.19 Personal history of other diseases of the digestive system; G62.9 Polyneuropathy, unspecified; Z79.891 Long term (current) use of opiate analgesic; I08.0 Rheumatic disorders of both mitral and aortic valves; Z87.39 Personal history of other diseases of the musculoskeletal system and connective tissue; F41.9 Anxiety disorder, unspecified; Z88.8 Allergy status to other drugs, medicaments and biological substances; Z79.899 Other long term (current) drug therapy; Z87.891 Personal history of nicotine dependence; F14.11 Cocaine abuse, in remission; K21.9 Gastro-esophageal reflux disease without esophagitis; R11.15 Cyclical vomiting syndrome unrelated to migraine; R56.9 Unspecified convulsions

== ENCOUNTER 2019-06-13 17:17 | Emergency (ER) | payer MEDICARE ==
[~2019-06-13] VITALS: Ht 182.9 cm; Wt 79.3 kg
[~2019-06-13 17:17] MED LIST changes: +ALPR0.5T3 PO; +AMLO5TAB6 PO; +DOXY100C PO; +ESCI10TA2 PO; +FAMO40TA3 PO; +HYDR25TA PO; +HYDR8TAB PO; +LIDO2.5C15 TOP; +LOSA25TA14 PO; +MUPI2OI TOP; +PRED10TA2 PO; +VELP5CHW PO; +VITA1CHW7 PO
[2019-06-13 17:18] VITALS: BP 161/99
[2019-06-13] MEDS ORDERED: PERCOCET 5MG/325MG TAB PO ONE (17:45)
[2019-06-13] MEDS ORDERED: LIDOCAINE 2% MDV 20ML VIAL SC ONE (17:45)
[2019-06-13] MEDS ORDERED: OXYC-1 PO (18:19)
[2019-06-13] MEDS ORDERED: KEFL500C17 PO (18:19)
--- NOTE | 2019-06-14 07:45 | REP ---
LEFT THIRD DIGIT: Four views of the left third digit performed. There is a nondisplaced fracture of the distal phalanx, which is somewhat comminuted. I see no other evidence of acute fracture or dislocation of the visualized osseous structures. Electronically Signed by Eder Rose MD 06/14/2019 09:46 P
== END 2019-06-13 18:30 | disposition home or self-care (01) ==
LOC: M ED 17:17
DX: S62.663A Nondisplaced fracture of distal phalanx of left middle finger, initial encounter for closed fracture (principal); S60.122A Contusion of left index finger with damage to nail, initial encounter; S60.132A Contusion of left middle finger with damage to nail, initial encounter; W23.0XXA Caught, crushed, jammed, or pinched between moving objects, initial encounter; Y92.094 Garage of other non-institutional residence as the place of occurrence of the external cause; I10 Essential (primary) hypertension; Z87.891 Personal history of nicotine dependence; Z88.8 Allergy status to other drugs, medicaments and biological substances; Z79.899 Other long term (current) drug therapy; Z79.52 Long term (current) use of systemic steroids

== ENCOUNTER 2019-08-13 11:55 | Emergency (ER) | payer MEDICARE ==
[~2019-08-13] VITALS: Ht 182.9 cm; Wt 80.3 kg
[2019-08-13] VITALS (10 sets, daily range): BP systolic 115–124; BP diastolic 56–77
[~2019-08-13 11:55] MED LIST changes: +KEFL500C17 PO; +OXYC-1 PO
[2019-08-13 12:45] LABS: BASO % 0.2 % (0.0-1.0); HEMATOCRIT 25.1 % (42.0-52.0); HEMOGLOBIN 7.8 g/dl (13.5-17.5); LYMPH # 1.2 10^3/uL (1.5-5.0); LYMPH % 13.1 % (24.0-44.0); MEAN CORPUSCULAR HEMOGLOBIN 30.1 pg (27.0-33.0); MEAN CORPUSCULAR HGB CONC 31.1 g/dl (32.0-36.5); MEAN CORPUSCULAR VOLUME 96.9 fl (80.0-96.0); MONO # 0.8 10^3/uL (0.0-0.8); MONO % 8.2 % (0.0-5.0); NEUTROPHILS # 7.4 10^3/uL (1.5-8.5); NEUTROPHILS % 78.3 % (36.0-66.0); PLATELET COUNT, AUTOMATED 199 10^3/uL (150-450); RED BLOOD COUNT 2.59 10^6/uL (4.30-6.10); WHITE BLOOD COUNT 9.4 10^3/uL (4.0-10.0)
[2019-08-13 13:04] LABS: CALCIUM LEVEL 8.1 MG/DL (8.5-10.1); CREATININE FOR GFR 3.51 MG/DL (0.70-1.30); GLOMERULAR FILTRATION RATE 20.8 (>60); POTASSIUM SERUM 4.1 MEQ/L (3.5-5.1)
[2019-08-13 13:36] LABS: INR 1.17; PROTHROMBIN TIME 14.6 SECONDS (11.8-14.0)
[2019-08-13] MEDS ORDERED: ACETAMINOPHEN TAB 650MG DOSE (2X325MG) PO ONE (14:00)
[2019-08-13 14:50] LABS: HEMATOCRIT 24.4 % (42.0-52.0); HEMOGLOBIN 7.4 g/dl (13.5-17.5); MEAN CORPUSCULAR HEMOGLOBIN 29.5 pg (27.0-33.0); MEAN CORPUSCULAR HGB CONC 30.3 g/dl (32.0-36.5); MEAN CORPUSCULAR VOLUME 97.2 fl (80.0-96.0); PLATELET COUNT, AUTOMATED 201 10^3/uL (150-450); RED BLOOD COUNT 2.51 10^6/uL (4.30-6.10); WHITE BLOOD COUNT 9.2 10^3/uL (4.0-10.0)
--- NOTE | 2019-08-13 14:50 | REP ---
CHEST, SINGLE VIEW: Single view of the chest is performed. COMPARISON: 04/06/2018. There is cardiomegaly. No acute infiltrate is seen. Mediastinal silhouette is unchanged. IMPRESSION: Cardiomegaly with no evidence of acute pulmonary disease. Electronically Signed by Eder Rose MD 08/13/2019 03:40 P
[2019-08-13] MEDS ORDERED: HYDROmorphone 2 MG TAB PO ONE (16:30)
[2019-08-13] MEDS ORDERED: METHADONE 10 MG TAB (S0109) PO ONE (16:30)
[2019-08-13] MEDS ORDERED: ALPRAZolam 0.5 MG TAB PO ONE (16:30)
[2019-08-13] MEDS ORDERED: **hydrALAZINE HCL** 25 MG TAB PO ONE (16:30)
[2019-08-13] MEDS ORDERED: LABETALOL 200 MG TAB PO ONE (16:30)
== END 2019-08-13 21:34 | disposition home or self-care (01) ==
LOC: EDBD 11:55 → M ED 11:55
DX: D62 Acute posthemorrhagic anemia (principal); Z99.2 Dependence on renal dialysis; I10 Essential (primary) hypertension; K21.9 Gastro-esophageal reflux disease without esophagitis; F41.9 Anxiety disorder, unspecified; F15.11 Other stimulant abuse, in remission; Z94.0 Kidney transplant status; Z79.899 Other long term (current) drug therapy; Z79.891 Long term (current) use of opiate analgesic; Z88.8 Allergy status to other drugs, medicaments and biological substances
CPT/HCPCS: 36415; 36430; 71045; 80048; 83605; 85025; 85027; 85610; 85730; 86850; 86900; 86901; 86920; 87040; 87486; 87581; 87633; 87798; 99285; P9016

== ENCOUNTER → 2019-09-23 | Outpatient (CLI) | payer MEDICARE, MEDICAID ==
[~2019-09-23] MED LIST changes: +ALPR1TAB3 PO; +AMLO1TAB24 PO; +AMLO1TAB25 PO; -AMLO5TAB6 PO; +DEPA250T2 PO; +FLAG500T PO; +HYDR-3910 PO; +PANT40TA29 PO; +PATIENT COMMENT; +[UNRECOGNIZED DRUG - CODE] IJ
--- NOTE | 2019-11-09 10:23 | REP ---
CT OF THE ABDOMEN AND PELVIS WITHOUT IV OR ORAL CONTRAST: HISTORY: Umbilical and inguinal hernias without obstruction. Scrotal swelling. End stage renal disease on dialysis. Report is delayed because of the effects of a malware attack on the facility. COMPARISON: None. FINDINGS: Digital preliminary director of teenage activities radiograph demonstrates calcifications projecting over the [place] kidneys. Bowel gas pattern is normal. The lung bases are essentially clear. There is no evidence of pleural effusion or upper abdominal ascites. The heart is enlarged. No focal hepatic or splenic lesion is seen. No abnormality is noted in the gallbladder or the pancreas. No adrenal lesion is observed. The [place] kidneys are markedly atrophic and contain multiple calcifications and small cysts. No hydronephrosis is seen. There are bilateral transplant kidneys in the iliac fossa, one on each side. The right transplant appears atrophic and the left shows dystrophic calcification and heterogeneous density, suggesting bilateral failed transplant kidneys. The prostate, seminal vesicles and urinary bladder are unremarkable. No inguinal or umbilical hernia is appreciated. No abdominal wall defect is seen. There is no evidence of free air or bowel obstruction. There is a normal appendix in a retrocecal location. IMPRESSION: No acute abdominal or pelvic abnormality. Marked atrophy of the [place] kidneys. Atrophic right renal transplant. Dystrophic calcification in the previous left iliac renal transplant. No abdominal wall defect. MTDD
== END ==
LOC: M RAD 07:30
PROVIDERS: ATTEND Physician Assistant Medical
DX: K42.9 Umbilical hernia without obstruction or gangrene (principal); K40.00 Bilateral inguinal hernia, with obstruction, without gangrene, not specified as recurrent; N18.6 End stage renal disease; Z99.2 Dependence on renal dialysis; N50.89 Other specified disorders of the male genital organs

== ENCOUNTER 2019-09-24 11:00 | Inpatient (IN) | payer MEDICARE ==
[~2019-09-24 11:00] MED LIST changes: -ALPR1TAB3 PO; -AMLO1TAB25 PO; -DEPA250T2 PO; -FLAG500T PO; -HYDR-3910 PO; -PANT40TA29 PO; -PATIENT COMMENT; -[UNRECOGNIZED DRUG - CODE] IJ
[2019-09-24] MEDS ORDERED: hydrALAZINE 20MG/ML 1ML VIAL (J0360 PER 20MG) As Ordered ONE ×2 (12:43→14:29)
[2019-09-24] MEDS ORDERED: LORazepam 1 MG TAB As Ordered ONE (12:56)
[2019-09-24] MEDS ORDERED: LORazepam 2 MG/ML VIAL As Ordered ONE (15:46)
[2019-09-24] MEDS ORDERED: MORPHINE 4 MG/ML 1ML VIAL/SYRINGE (J2270) As Ordered ONE (15:46)
[2019-09-24] MEDS ORDERED: ACETAMINOPHEN TAB 650MG DOSE (2X325MG) As Ordered ONE (17:02)
[2019-09-24] MEDS ORDERED: LABETALOL 200 MG TAB As Ordered ONE (20:54)
[2019-09-24] MEDS ORDERED: amLODIPine 5 MG TAB As Ordered ONE (20:55)
[2019-09-25] MEDS ORDERED: ACETAMINOPHEN TAB 650MG DOSE (2X325MG) As Ordered ONE ×2 (03:49→20:20)
[2019-09-25] MEDS ORDERED: hydrALAZINE 20MG/ML 1ML VIAL (J0360 PER 20MG) As Ordered ONE ×4 (03:50→17:21)
[2019-09-25] MEDS ORDERED: PANTOPRAZOLE 40MG VIAL (C9113 PER 1) As Ordered ONE (08:09)
[2019-09-25] MEDS ORDERED: LABETALOL 200 MG TAB As Ordered ONE ×2 (08:09→20:21)
[2019-09-25] MEDS ORDERED: MORPHINE 4 MG/ML 1ML VIAL/SYRINGE (J2270) As Ordered ONE ×2 (11:04→21:17)
[2019-09-25] MEDS ORDERED: cloNIDine 0.1 MG TAB As Ordered ONE ×2 (11:05→20:21)
[2019-09-25] MEDS ORDERED: predniSONE 10 MG TAB As Ordered ONE (16:15)
[2019-09-25] MEDS ORDERED: ACETAMINOPHEN 325 MG TAB As Ordered ONE (16:15)
[2019-09-25] MEDS ORDERED: amLODIPine 5 MG TAB As Ordered ONE (20:21)
[2019-09-26] MEDS ORDERED: hydrALAZINE 20MG/ML 1ML VIAL (J0360 PER 20MG) As Ordered ONE ×2 (01:29→12:07)
[2019-09-26] MEDS ORDERED: ACETAMINOPHEN TAB 650MG DOSE (2X325MG) As Ordered ONE (01:58)
[2019-09-26] MEDS ORDERED: LABETALOL 200 MG TAB As Ordered ONE ×3 (08:43→21:09)
[2019-09-26] MEDS ORDERED: predniSONE 10 MG TAB As Ordered ONE (08:43)
[2019-09-26] MEDS ORDERED: PANTOPRAZOLE 40MG VIAL (C9113 PER 1) As Ordered ONE (08:43)
[2019-09-26] MEDS ORDERED: cloNIDine 0.1 MG TAB As Ordered ONE ×3 (08:43→21:10)
[2019-09-26] MEDS ORDERED: MORPHINE 4 MG/ML 1ML VIAL/SYRINGE (J2270) As Ordered ONE (08:49)
[2019-09-26] MEDS ORDERED: amLODIPine 10 MG TAB As Ordered ONE (12:09)
[2019-09-26] MEDS ORDERED: ALPRAZolam 0.5 MG TAB As Ordered ONE ×2 (15:17→21:10)
[2019-09-26] MEDS ORDERED: ESCITALOPRAM OXALATE 10 MG TAB (LEXAPRO) As Ordered ONE (15:17)
[2019-09-26] MEDS ORDERED: HYDROmorphone 2 MG TAB As Ordered ONE (15:22)
[2019-09-26] MEDS ORDERED: METHADONE 10 MG TAB (S0109) As Ordered ONE ×2 (17:57→23:49)
[2019-09-26] MEDS ORDERED: amLODIPine 5 MG TAB As Ordered ONE (21:10)
[2019-09-27] MEDS ORDERED: METHADONE 10 MG TAB (S0109) As Ordered ONE ×3 (00:01→17:39)
[2019-09-27] MEDS ORDERED: ESCITALOPRAM OXALATE 10 MG TAB (LEXAPRO) As Ordered ONE (08:23)
[2019-09-27] MEDS ORDERED: LABETALOL 200 MG TAB As Ordered ONE ×3 (08:24→21:46)
[2019-09-27] MEDS ORDERED: ALPRAZolam 0.5 MG TAB As Ordered ONE ×2 (08:24→21:47)
[2019-09-27] MEDS ORDERED: amLODIPine 10 MG TAB As Ordered ONE (08:24)
[2019-09-27] MEDS ORDERED: predniSONE 10 MG TAB As Ordered ONE (08:24)
[2019-09-27] MEDS ORDERED: cloNIDine 0.1 MG TAB As Ordered ONE ×2 (08:25→21:47)
[2019-09-27] MEDS ORDERED: PANTOPRAZOLE 40MG VIAL (C9113 PER 1) As Ordered ONE (08:25)
[2019-09-27] MEDS ORDERED: HYDROmorphone 2 MG TAB As Ordered ONE (08:32)
[2019-09-27] MEDS ORDERED: LORazepam 2 MG/ML VIAL As Ordered ONE (14:01)
[2019-09-27] MEDS ORDERED: hydrALAZINE 20MG/ML 1ML VIAL (J0360 PER 20MG) As Ordered ONE (17:42)
[2019-09-27] MEDS ORDERED: amLODIPine 5 MG TAB As Ordered ONE (21:48)
[2019-09-28] MEDS ORDERED: METHADONE 10 MG TAB (S0109) As Ordered ONE ×4 (00:36→16:59)
[2019-09-28] MEDS ORDERED: ESCITALOPRAM OXALATE 10 MG TAB (LEXAPRO) As Ordered ONE (08:37)
[2019-09-28] MEDS ORDERED: LABETALOL 200 MG TAB As Ordered ONE ×2 (08:37→17:00)
[2019-09-28] MEDS ORDERED: amLODIPine 10 MG TAB As Ordered ONE (08:37)
[2019-09-28] MEDS ORDERED: PANTOPRAZOLE 40MG VIAL (C9113 PER 1) As Ordered ONE (08:38)
[2019-09-28] MEDS ORDERED: ALPRAZolam 0.5 MG TAB As Ordered ONE (08:38)
[2019-09-28] MEDS ORDERED: predniSONE 10 MG TAB As Ordered ONE (08:38)
[2019-09-28] MEDS ORDERED: cloNIDine 0.1 MG TAB As Ordered ONE (08:39)
--- NOTE | 2019-11-06 08:09 | ECGEPIP ---
SINUS RHYTHM WITH FIRST DEGREE AV BLOCK POSSIBLE RIGHT ATRIAL ENLARGEMENT POSSIBLE LEFT ATRIAL ENLARGEMENT INDETERMINATE AXIS MODERATE INTRAVENTRICULAR CONDUCTION DELAY NON SPECIFIC ST & T-WAVE CHANGES ABNORMAL ECG NO PREVIOUS SEE SCANNED DOWNTIME REPORT MTDD
[2019-11-11 20:40] LABS: BASO % 0.5 % (0.0-1.0); EOS % 0.1 % (0.0-3.0); HEMATOCRIT 38.2 % (42.0-52.0); HEMOGLOBIN 12.5 g/dl (13.5-17.5); LYMPH % 12.7 % (24.0-44.0); MEAN CORPUSCULAR HEMOGLOBIN 29.8 pg (27.0-33.0); MEAN CORPUSCULAR HGB CONC 32.7 g/dl (32.0-36.5); MEAN CORPUSCULAR VOLUME 91.2 fl (80.0-96.0); MONO % 10.7 % (0.0-5.0); NEUTROPHILS % 75.7 % (36.0-66.0); PLATELET COUNT, AUTOMATED 216 10^3/uL (150-450); RED BLOOD COUNT 4.19 10^6/uL (4.30-6.10); WHITE BLOOD COUNT 7.4 10^3/uL (4.0-10.0)
[2019-11-11 20:41] LABS: LYMPH # 0.9 10^3/uL (1.5-5.0); MONO # 0.8 10^3/uL (0.0-0.8); NEUTROPHILS # 5.6 10^3/uL (1.5-8.5)
--- NOTE | 2019-11-12 11:25 | ECGEPIP ---
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 LVH PROLONGED QT INTERVAL NO PRIOR TRACING AVAILABLE SEE DOWNTIME SCANNED REPORT
[2019-11-12 16:22] LABS: BASO % 0.3 % (0.0-1.0); HEMATOCRIT 36.4 % (42.0-52.0); HEMOGLOBIN 12.1 g/dl (13.5-17.5); LYMPH # 1.1 10^3/uL (1.5-5.0); LYMPH % 17.8 % (24.0-44.0); MEAN CORPUSCULAR HEMOGLOBIN 29.6 pg (27.0-33.0); MEAN CORPUSCULAR HGB CONC 33.2 g/dl (32.0-36.5); MONO # 0.6 10^3/uL (0.0-0.8); MONO % 10.6 % (0.0-5.0); NEUTROPHILS # 4.3 10^3/uL (1.5-8.5); PLATELET COUNT, AUTOMATED 245 10^3/uL (150-450); RED BLOOD COUNT 4.09 10^6/uL (4.30-6.10); WHITE BLOOD COUNT 6.1 10^3/uL (4.0-10.0)
[2019-11-13 14:58] LABS: HEMATOCRIT 36.6 % (42.0-52.0); HEMOGLOBIN 11.8 g/dl (13.5-17.5); MEAN CORPUSCULAR HEMOGLOBIN 29.4 pg (27.0-33.0); MEAN CORPUSCULAR HGB CONC 32.2 g/dl (32.0-36.5); PLATELET COUNT, AUTOMATED 237 10^3/uL (150-450); RED BLOOD COUNT 4.02 10^6/uL (4.30-6.10); WHITE BLOOD COUNT 6.8 10^3/uL (4.0-10.0)
[2019-11-18 09:25] LABS: HEMATOCRIT 37.4 % (42.0-52.0); HEMOGLOBIN 12.1 g/dl (13.5-17.5); MEAN CORPUSCULAR HEMOGLOBIN 29.4 pg (27.0-33.0); MEAN CORPUSCULAR HGB CONC 32.4 g/dl (32.0-36.5); PLATELET COUNT, AUTOMATED 210 10^3/uL (150-450); RED BLOOD COUNT 4.11 10^6/uL (4.30-6.10); WHITE BLOOD COUNT 6.4 10^3/uL (4.0-10.0)
--- NOTE | 2019-11-23 14:37 | EEG ---
DATE: 09/28/2019 DIAGNOSIS: Seizures. EEG# [id number] REFERRING PHYSICIAN: Dr. Connor. HISTORY: Patient is a 39-year-old man who was admitted at [facility] due to seizures. He also has a history of kidney transplant. He is currently taking methadone, Xanax, labetalol, amlodipine, etc. TECHNICAL DESCRIPTION: This baseline EEG was recorded by a 21-scalp, ear, and two EKG electrodes and was reviewed in bipolar and referential montages following reformatting in 10-20 international electrode placement system. INTERPRETATION: Patient was noted to be in awake and drowsy states during this EEG. Resting and awake background rhythm consisted of well-formed posterior dominant rhythm with anterior-posterior gradient comprising of 10 Hz alpha activity measuring 15-40 microvolts in amplitude, which was symmetric and reactive to eye opening. Anteriorly low voltage mixed frequency beta activity was noted likely due to medication effect. Attenuation of posterior dominant rhythm was seen during transition to drowsiness. Stage 1 and 2 sleep were reviewed and were symmetric bilaterally. Hyperventilation and photic stimulation remained unremarkable. No focal, lateralizing, or epileptiform abnormalities were seen. No relevant clinical activity was noted. CONCLUSION: This EEG in awake, drowsy states, stage 1 and 2 sleep is within normal limits. [facility]
[2019-12-14 10:03] LABS: ALBUMIN 3.5 GM/DL (3.2-5.2); BILIRUBIN,TOTAL 0.6 MG/DL (0.2-1.0); CALCIUM LEVEL 8.8 MG/DL (8.5-10.1); CREATININE FOR GFR 9.67 MG/DL (0.70-1.30); GLOMERULAR FILTRATION RATE 6.5 (>60); POTASSIUM SERUM 4.6 MEQ/L (3.5-5.1); TOTAL PROTEIN 6.5 GM/DL (6.4-8.2)
[2019-12-14 17:17] LABS: ALBUMIN 3.6 GM/DL (3.2-5.2); BILIRUBIN,TOTAL 0.5 MG/DL (0.2-1.0); CALCIUM LEVEL 9.4 MG/DL (8.5-10.1); CREATININE FOR GFR 7.57 MG/DL (0.70-1.30); GLOMERULAR FILTRATION RATE 8.6 (>60); MAGNESIUM LEVEL 2.8 MG/DL (1.8-2.4); POTASSIUM SERUM 4.1 MEQ/L (3.5-5.1); TOTAL PROTEIN 6.9 GM/DL (6.4-8.2)
[2019-12-21 20:23] LABS: ALBUMIN 3.5 GM/DL (3.2-5.2); BILIRUBIN,TOTAL 0.7 MG/DL (0.2-1.0); CALCIUM LEVEL 8.9 MG/DL (8.5-10.1); CREATININE FOR GFR 12.4 MG/DL (0.70-1.30); GLOMERULAR FILTRATION RATE 4.8 (>60); MAGNESIUM LEVEL 3.3 MG/DL (1.8-2.4); POTASSIUM SERUM 4.9 MEQ/L (3.5-5.1); TOTAL PROTEIN 6.6 GM/DL (6.4-8.2)
[2019-12-22 04:12] LABS: ALBUMIN 4.1 GM/DL (3.2-5.2); CREATININE FOR GFR 9.83 MG/DL (0.70-1.30); GLOMERULAR FILTRATION RATE 6.3 (>60); PHOSPHORUS LEVEL 7.2 MG/DL (2.5-4.9)
== END 2019-09-28 16:30 | disposition home or self-care (01) | DRG 682 ==
LOC: M ED 11:00 → M PCU 15:00
PROVIDERS: ADMIT Internal Medicine; ATTEND Internal Medicine
PROC: 5A1D70Z Performance of Urinary Filtration, Intermittent, Less than 6 Hours Per Day (ICD-10-PCS; principal; 2019-09-26)
DX: I12.0 Hypertensive chronic kidney disease with stage 5 chronic kidney disease or end stage renal disease (principal); N18.6 End stage renal disease; I16.1 Hypertensive emergency; Z79.899 Other long term (current) drug therapy; Z91.15 Patient's noncompliance with renal dialysis; K21.9 Gastro-esophageal reflux disease without esophagitis; F12.90 Cannabis use, unspecified, uncomplicated; F11.90 Opioid use, unspecified, uncomplicated; Z87.891 Personal history of nicotine dependence

== ENCOUNTER 2019-10-12 10:45 | Emergency (ER) | payer MEDICARE ==
[~2019-10-12] VITALS: Ht 185.4 cm; Wt 81.0 kg
[2019-10-12] MEDS ORDERED: hydrALAZINE 20MG/ML 1ML VIAL (J0360 PER 20MG) IV STA (11:01)
--- NOTE | 2019-10-12 11:21 | REPVR ---
PROCEDURE INFORMATION: Exam: CT Head Without Contrast Exam date and time: 10/12/2019 10:58 AM Age: 39 years old Clinical indication: Altered mental status/memory loss; Additional info: AMS TECHNIQUE: Imaging protocol: Computed tomography of the head without contrast. Radiation optimization: All CT scans at this facility use at least one of these dose optimization techniques: automated exposure control; mA and/or kV adjustment per patient size (includes targeted exams where dose is matched to clinical indication); or iterative reconstruction. COMPARISON: CT Head without contrast 04/22/2019 7:29 AM FINDINGS: Brain: Normal. No hemorrhage. Unremarkable white matter. No mass effect. Ventricles: Normal. No ventriculomegaly. Bones/joints: Unremarkable. No acute fracture. Sinuses: Visualized sinuses are unremarkable. No fluid levels. Mastoid air cells: Visualized mastoid air cells are well aerated. Soft tissues: Unremarkable. IMPRESSION: No acute intracranial abnormality. Electronically signed by: Kimberlyn Rodriguez On 10/12/2019 11:21:29 AM
[2019-10-12 11:30] LABS: BASO % 0.3 % (0.0-1.0); HEMATOCRIT 38.2 % (42.0-52.0); HEMOGLOBIN 12.8 g/dl (13.5-17.5); LYMPH # 0.5 10^3/uL (1.5-5.0); LYMPH % 6.7 % (24.0-44.0); MEAN CORPUSCULAR HEMOGLOBIN 29.9 pg (27.0-33.0); MEAN CORPUSCULAR HGB CONC 33.5 g/dl (32.0-36.5); MEAN CORPUSCULAR VOLUME 89.3 fl (80.0-96.0); MONO # 0.4 10^3/uL (0.0-0.8); MONO % 5.4 % (0.0-5.0); NEUTROPHILS # 6.9 10^3/uL (1.5-8.5); NEUTROPHILS % 87.3 % (36.0-66.0); PLATELET COUNT, AUTOMATED 196 10^3/uL (150-450); RED BLOOD COUNT 4.28 10^6/uL (4.30-6.10); WHITE BLOOD COUNT 7.9 10^3/uL (4.0-10.0)
--- NOTE | 2019-10-12 11:50 | REPVR ---
PROCEDURE INFORMATION: Exam: XR Chest, 1 View Exam date and time: 10/12/2019 11:26 AM Age: 39 years old Clinical indication: Shortness of breath; Additional info: AMS TECHNIQUE: Imaging protocol: XR of the chest Views: 1 view. COMPARISON: CR Chest, 1 view 08/13/2019 2:04 PM FINDINGS: Lungs: Unremarkable. No consolidation. Pleural space: Unremarkable. No pleural effusion. No pneumothorax. Heart/Mediastinum: There is stable cardiomegaly. Bones/joints: Unremarkable. IMPRESSION: Stable cardiomegaly. Electronically signed by: Kimberlyn Rodriguez On 10/12/2019 11:50:59 AM
[2019-10-12 11:58] LABS: CREATININE FOR GFR 7.44 MG/DL (0.70-1.30); GLOMERULAR FILTRATION RATE 8.7 (>60); POTASSIUM SERUM 6.4 MEQ/L (3.5-5.1)
[2019-10-12] MEDS ORDERED: DEXTROSE 50% 50 ML SYRINGE IV STA (12:24)
[2019-10-12 18:00] VITALS: BP 187/101
[2019-10-12] MEDS ORDERED: DIVALPROEX 250MG *ER* TAB PO ONE (18:30)
[2019-10-12] MEDS ORDERED: DEPA250T2 PO (18:56)
--- NOTE | 2019-11-03 12:05 | ECGEPIP ---
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
== END 2019-10-12 19:30 | disposition home or self-care (01) ==
LOC: M ED 10:45
DX: R56.9 Unspecified convulsions (principal); N18.6 End stage renal disease; Z99.2 Dependence on renal dialysis; E16.2 Hypoglycemia, unspecified; I12.0 Hypertensive chronic kidney disease with stage 5 chronic kidney disease or end stage renal disease; Z79.899 Other long term (current) drug therapy; Z79.891 Long term (current) use of opiate analgesic; Z88.8 Allergy status to other drugs, medicaments and biological substances

== ENCOUNTER 2019-11-12 15:49 | Inpatient (IN) | payer MEDICAID, MEDICARE ==
[~2019-11-12] VITALS: Ht 182.9 cm; Wt 78.5 kg
[~2019-11-12 15:49] MED LIST changes: +DEPA250T2 PO
--- NOTE | 2019-11-12 16:25 | REPVR ---
PROCEDURE INFORMATION: Exam: XR Chest, 1 View Exam date and time: 11/12/2019 3:58 PM Age: 39 years old Clinical indication: Other: Abdomin pain; Additional info: Dyspnea/cough TECHNIQUE: Imaging protocol: XR of the chest Views: Frontal portable sitting upright view of the chest. COMPARISON: CR Chest, 1 view 10/12/2019 11:24 AM FINDINGS: Tubes, catheters and devices: EKG leads are present overlying the chest. Lungs: Left infrahilar infiltrate/atelectasis. Lateral right mid lung zone subsegmental atelectasis. The pulmonary vasculature remains mildly congested. Pleural space: No pleural effusion. No pneumothorax. Heart/Mediastinum: Moderate cardiomegaly. Mediastinum: Stable. Bones/joints: Stable. IMPRESSION: 1. Left infrahilar infiltrate/atelectasis. Pneumonitis is difficult to exclude. Clinical correlation is recommended. 2. Lateral right mid lung zone subsegmental atelectasis. 3. Persistent mild pulmonary vascular congestion. Electronically signed by: Jean-Paul Espinoza On 11/12/2019 16:25:37 PM
[2019-11-12] MEDS: HYDROMORPHONE HCL 0.5 MG/ 0.5 ML SYRINGE (J1170 PER 1) IV PRN ×2 (17:04→18:12)
[2019-11-12] MEDS ORDERED: DEXTROSE 50% 50 ML VIAL As Ordered ONE (17:06)
[2019-11-12 17:09] LABS: BASO % 0.3 % (0.0-1.0); HEMATOCRIT 32.9 % (42.0-52.0); HEMOGLOBIN 10.7 g/dl (13.5-17.5); LYMPH # 0.5 10^3/uL (1.5-5.0); LYMPH % 7.3 % (24.0-44.0); MEAN CORPUSCULAR HEMOGLOBIN 28.4 pg (27.0-33.0); MEAN CORPUSCULAR HGB CONC 32.5 g/dl (32.0-36.5); MEAN CORPUSCULAR VOLUME 87.3 fl (80.0-96.0); MONO # 0.4 10^3/uL (0.0-0.8); MONO % 5.4 % (0.0-5.0); NEUTROPHILS # 6.5 10^3/uL (1.5-8.5); NEUTROPHILS % 86.7 % (36.0-66.0); PLATELET COUNT, AUTOMATED 232 10^3/uL (150-450); RED BLOOD COUNT 3.77 10^6/uL (4.30-6.10); WHITE BLOOD COUNT 7.4 10^3/uL (4.0-10.0)
[2019-11-12] MEDS ORDERED: DEXTROSE 50% 50 ML SYRINGE IV STA ×2 (17:20→21:28)
[2019-11-12 17:51] LABS: BILIRUBIN,DIRECT 0.3 MG/DL (0.0-0.2); BILIRUBIN,TOTAL 0.9 MG/DL (0.2-1.0); THYROID STIMULATING HORMONE 0.92 uIU/ML (0.358-3.740)
[2019-11-12] MEDS ORDERED: ISOVUE-370 76% 100ML VIAL As Ordered ONE (18:34)
[2019-11-12] MEDS ORDERED: fentaNYL 100 MCG/2 ML INJECTION (J3010) IV ONE ×2 (19:30→21:30)
--- NOTE | 2019-11-12 19:58 | REPVR ---
PROCEDURE INFORMATION: Exam: CT Abdomen And Pelvis With Contrast Exam date and time: 11/12/2019 6:51 PM Age: 39 years old Clinical indication: Abdominal pain; Generalized; Additional info: Abdominal pain llq at site of transplant TECHNIQUE: Imaging protocol: Computed tomography of the abdomen and pelvis with intravenous contrast. Radiation optimization: All CT scans at this facility use at least one of these dose optimization techniques: automated exposure control; mA and/or kV adjustment per patient size (includes targeted exams where dose is matched to clinical indication); or iterative reconstruction. Contrast material: ISOVUE 370; Contrast volume: 100 ml; Contrast route: INTRAVENOUS (IV); COMPARISON: CT ABD PELVIS W/O CONTRAST 09/23/2019 8:02 AM FINDINGS: Lungs: Atelectasis at bilateral visualized lung bases. Pleural space: Trace left and small right pleural effusion. Heart: Cardiomegaly. Liver: Normal. No mass. Gallbladder and bile ducts: Normal. No calcified stones. No ductal dilation. Pancreas: Normal. No ductal dilation. Spleen: Normal. No splenomegaly. Adrenals: Normal. No mass. Kidneys and ureters: Bilateral renal atrophy. Bilateral lower quadrant renal transplants. The right transplant appears atrophy can be left shows dystrophic calcification and heterogenous density suggesting bilateral failed transplant kidneys. Stomach and bowel: Unremarkable. No obstruction. No mucosal thickening. Appendix: Retrocecal appendix appear unremarkable. Intraperitoneal space: Small abdominal and pelvic ascites. Vasculature: Unremarkable. No abdominal aortic aneurysm. Lymph nodes: Unremarkable. No enlarged lymph nodes. Urinary bladder: Unremarkable as visualized. Reproductive: Unremarkable as visualized. Bones/joints: Degenerative changes of the spine. Soft tissues: Diffuse anasarca. IMPRESSION: Interval development of small abdominal and pelvic ascites. Electronically signed by: Zach Joyner On 11/12/2019 19:57:51 PM
[2019-11-12] MEDS ORDERED: SOD POLYSTYRENE SULFONATE SUSP 15 GM/60 ML UD PO ONE (20:45)
--- NOTE | 2019-11-12 20:52 | HPEPDOC ---
[facility] Medical History & Physical Date of Admission Nov 12, 2019 Date of Service: Nov 12, 2019 Primary Care Physician: Stefan Palacio MD Attending Physician: DORI OBRIEN MD History and Physical TIME OF SERVICE: 10:45 PM CHIEF COMPLAINT: Abdominal pain HISTORY OF PRESENT ILLNESS: This 39-year-old male presented with complaints of severe, sharp lower abdominal pain that began on Saturday that was associated with several episodes of nonbloody diarrhea, multiple episodes of green emesis along with chills and poor appetite. He denied having fevers. Because he was feeling unwell, he missed the last 2 sessions of dialysis. Because his K was elevated he declined Kayexalate; the EKG showded sinus bradycardia w 1st degree AV block. 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 Cyclic vomiting Aortic regurgitation/mitral regurgitation (echo 2011) Avascular necrosis of the right calcaneus/talus 2014 Cyclic vomiting syndrome from chronic marijuana use 2015 Anxiety ORIF right thumb (1999) Peritoneal dialysis tube placement (2004, 2012) History of kidney transplants (2004, 2013) Left arm AV fistula (2011) Left AV fistula bypass (2011) Left meniscal knee surgery (2016) SOCIAL HISTORY: Is a former smoker He does not use alcohol He doesn't use recreational drugs, but has a history of opiate use and is currently on methadone FAMILY HISTORY: Kimball's disease ALLERGIES: Please see below. HOME MEDICATIONS: Please see below. PHYSICAL EXAMINATION: Vital Signs Date Time Temp Pulse Resp B/P (MAP) Pulse Ox O2 Delivery O2 Flow Rate FiO2 11/12/19 16:04 56 11/12/19 16:07 195/113 (140) 11/12/19 16:18 22 11/12/19 17:15 97 11/12/19 17:22 97.8 Room Air GEN: well-nourished / well developed/ anxious INTEGUMENT: not flushed/ not jaundice / He has postsurgical scars on abdomen HEENT: EOMI CVS: RRR/NMRG /no lower extremity edema LUNGS: able to speak full sentences without stopping to take a breath / no coughing / lungs are clear to auscultation bilaterally on room air ABDOMEN: Contour (distended) / tender with percussion MSK/EXTREMITIES: range of motion intact in all 4 extremities / gait normal NEURO: CN 2-12 are grossly intact / speech is not dysarthric PSYCH: alert and oriented to person place and time/ able to understand and follow all commands LABORATORY DATA: 11/12/19 16:58 11/12/19 16:58: Immature Granulocyte % (Auto) 0.3, Neutrophils (%) (Auto) 86.7H, Lymphocytes (%) (Auto) 7.3L, Monocytes (%) (Auto) 5.4H, Eosinophils (%) (Auto) 0.0, Basophils (%) (Auto) 0.3, Neutrophils # (Auto) 6.5, Lymphocytes # (Auto) 0.5L, Monocytes # (Auto) 0.4, Eosinophils # (Auto) 0.0, Basophils # (Auto) 0.0, Nucleated Red Blood Cells % (auto) 0.0, Total Bilirubin 0.9, Direct Bilirubin 0.3H, Aspartate Amino Transf (AST/SGOT) 5L, Alanine Aminotransferase (ALT/SGPT) 13, Alkaline Phosphatase 88, ZC-Tvw-R-Type Natriuretic Peptide 890896A, Total Protein 6.0L, Albumin 3.0L, Albumin/Globulin Ratio 1.0, Thyroid Stimulating Hormone (TSH) 0.920 11/12/19 17:00: POC Glucose (Misc Panel) 42L, POC Sodium (Misc Panel) 127L, POC Potassium (Misc Panel) 6.0H, POC Chloride (Misc Panel) 90L, POC Total CO2 (Misc Panel) 25.0, POC Blood Urea Nitrogen (Misc Panel 50H, POC Ionized Calcium (Misc Panel) 4.3L, POC Creatinine (Misc Panel) 12.4H, POC Hematocrit (Misc Panel) 35.0L 11/12/19 17:12: POC Troponin I (Misc) 0.01 11/12/19 18:09: Bedside Glucose (Misc Panel) 83 11/12/19 19:08: Bedside Glucose (Misc Panel) 55L 11/12/19 20:14: Bedside Glucose (Misc Panel) 94 IMAGING: Chest xray "IMPRESSION: 1. Left infrahilar infiltrate/atelectasis. Pneumonitis is difficult to exclude. Clinical correlation is recommended. 2. Lateral right mid lung zone subsegmental atelectasis. 3. Persistent mild pulmonary vascular co ngestion. " CT abd/pelvis "IMPRESSION: Interval development of small abdominal and pelvic ascites." MICROBIOLOGY: 11/12/19 Blood Culture, Received Pending 11/12/19 Blood Culture, Received Pending ASSESSMENT: Mr. Lara is a 39-year-old with a history of ESRD, Kim[place]'s disease, neuropathy, cyclic vomiting syndrome, and methadone use will be admitted for evaluation of N/V/D and management of mild fluid overload 2/2 missing dialysis. 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 Plan: admit to PCU bc of elevated K / f/u Is and Os, daily weights / Nephro con sult / predn 2 N/V/D Possibly 2/2 gastroenteritis / f/u GI panel 3 Hypoglycemia 2/2 n/v Plan: f/u FSBS / hypoglycemia protocol / f/u GI panel, blood cx & lactic acid to r/o infection 4 Bradycardia / 1st Degree AV block Likely 2/2 methadone use Plan: telemetry 5 Left infrahilar inflitrate Plan: f/u 2 view xray to r/o PNA 6 NN Anemia Likley 2/2 ESRD Plan: f/u CBC / hold iron until infection has been r/o 7 Hyponatremia 2/2 fluid overload 8 Chronic HTN Plan: amlodpine, clonidine, labetalol, hydralazine 9 Anxiety Plan: alprazolam, escitalopram 10 Acute on Chronic Pain Plan: fentanyl / hold hydromorphone & methadone / will ask the day time team to consult Pain Management to titrate his meds DVT PROPHYLAXIS: heparin DISPOSITION: likely home after more than 2 midnight's stay Home Medications Scheduled Amlodipine Besylate (Amlodipine Besylate) 10 Mg Tablet, 10 MG PO DAILY Clonidine HCl (Clonidine HCl) 0.1 Mg Tablet, 0.1 MG PO BID Escitalopram Oxalate (Escitalopram Oxalate) 10 Mg Tablet, 10 MG PO DAILY Famotidine (Famotidine) 40 Mg Tablet, 40 MG PO DAILY Hydralazine HCl (Hydralazine HCl) 25 Mg Tablet, 25 MG PO TID 0600, 1300, 2200 Labetalol HCl (Labetalol HCl) 200 Mg Tab, 400 MG PO TID 0600, 1300, 2200 Methadone HCl (Dolophine HCl) 10 Mg Tab, 45 MG PO Q6H Prednisone (Prednisone) 10 Mg Tablet, 10 MG PO DAILY Sucroferric Oxyhydroxide (Velphoro) 500 Mg Tab.chew, 1,000 MG PO WM Scheduled PRN Alprazolam (Alprazolam) 1 Mg Tablet, 1 MG PO BID PRN for ANXIETY Hydromorphone HCl (Hydromorphone HCl) 8 Mg Tablet, 8 MG PO QID PRN for PAIN Sildenafil Citrate (Viagra) 100 Mg Tablet, 100 MG PO ASDIRECTED PRN for ERECTILE DYSFUNCTION Miscellaneous Medications [Patient Comment] PATIENT HAS NOT TAKEN ANY MEDS OUTSIDE OF ONE DOSE OF METHADONE ALL DAY Allergies Coded Allergies: amitriptyline (Verified Adverse Reaction, Mild, DOES NOT TOLERATE,ANXIETY, 08/13/19) duloxetine (Verified Adverse Reaction, Mild, ANXIETY, 08/13/19) gabapentin (Verified Adverse Reaction, Unknown, ANEMIA, 08/13/19) A-FIB/CHADSVASC A-FIB History Current/History of A-Fib/PAF?: No Current PO Anticoag Therapy: No DORI OBRIEN MD Nov 12, 2019 20:52
--- NOTE | 2019-11-12 20:58 | ECGEPIP ---
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
[2019-11-12] MEDS ORDERED: ACETAMINOPHEN TAB 650MG DOSE (2X325MG) PO PRN (21:00)
[2019-11-12] MEDS ORDERED: MOM 30ML SUSPENSION UDC PO PRN (21:00)
[2019-11-12] MEDS ORDERED: MAALOX 30 ML SUSP *UDC PO PRN (21:00)
[2019-11-12] MEDS ORDERED: AMLO1TAB25 PO (21:09)
[2019-11-12] MEDS ORDERED: ALPR1TAB3 PO (21:09)
[2019-11-12] MEDS ORDERED: HYDR-3910 PO (21:09)
[2019-11-12] MEDS ORDERED: PATIENT COMMENT (21:09)
[2019-11-12] MEDS ORDERED: CLON-412 PO (21:09)
[2019-11-12 21:13] LABS: CALCIUM LEVEL 8.3 MG/DL (8.5-10.1); CREATININE FOR GFR 12.2 MG/DL (0.70-1.30); GLOMERULAR FILTRATION RATE 4.9 (>60); POTASSIUM SERUM 6.1 MEQ/L (3.5-5.1)
[2019-11-12] MEDS ORDERED: fentaNYL 100 MCG/2 ML INJECTION (J3010) IV PRN (23:00)
[2019-11-12 23:30] VITALS: BP 168/98
[2019-11-12] MEDS: HEPARIN SOD (PORCINE) 5000UNITS/ML 1ML VIAL/SYRINGE SC SCH (23:50)
[2019-11-13] MEDS ORDERED: METHADONE 10 MG TAB (S0109) PO SCH
[2019-11-13] MEDS ORDERED: PATIROMER SORBITEX CALCIUM 8.4 GM POWDER PACKET (VELTASSA) PO ONE (00:30)
[2019-11-13] MEDS ORDERED: GLUCAGON INJ 1MG VIAL SC PRN (00:30)
[2019-11-13] MEDS ORDERED: DEXTROSE 50% 50 ML SYRINGE IV PRN (00:30)
[2019-11-13] MEDS ORDERED: GLUCOSE 4GM CHEW TABLET PO PRN (00:30)
[2019-11-13] MEDS: HumaLOG INSULIN (NovoLOG) PER UNIT SC SCH ×5 (00:47→21:00)
[2019-11-13] MEDS: **hydrALAZINE HCL** 25 MG TAB PO SCH ×4 (01:02→21:40)
[2019-11-13] MEDS: cloNIDine 0.1 MG TAB PO SCH ×3 (01:03→21:39)
[2019-11-13] MEDS: LABETALOL 200 MG TAB PO SCH ×4 (01:03→21:49)
[2019-11-13] MEDS: ALPRAZolam 0.5 MG TAB PO PRN ×3 (01:06→21:41)
[2019-11-13] MEDS ORDERED: PILL CUTTER 1 EACH XX PRN (01:15)
[2019-11-13] MEDS: ONDANSETRON 4MG/2ML VIAL IV PRN ×3 (02:08→18:48)
[2019-11-13 02:10] VITALS: BP 170/98
[2019-11-13 04:00] VITALS: BP 170/110
[2019-11-13] MEDS ORDERED: SOD POLYSTYRENE SULFONATE SUSP 15 GM/60 ML UD PO ONE (04:15)
[2019-11-13 04:42] LABS: HEMATOCRIT 28.5 % (42.0-52.0); HEMOGLOBIN 9.2 g/dl (13.5-17.5); MEAN CORPUSCULAR HEMOGLOBIN 28.3 pg (27.0-33.0); MEAN CORPUSCULAR HGB CONC 32.3 g/dl (32.0-36.5); MEAN CORPUSCULAR VOLUME 87.7 fl (80.0-96.0); PLATELET COUNT, AUTOMATED 181 10^3/uL (150-450); RED BLOOD COUNT 3.25 10^6/uL (4.30-6.10); WHITE BLOOD COUNT 6.3 10^3/uL (4.0-10.0)
[2019-11-13 05:28] LABS: CALCIUM LEVEL 8.2 MG/DL (8.5-10.1); CREATININE FOR GFR 12.7 MG/DL (0.70-1.30); GLOMERULAR FILTRATION RATE 4.7 (>60); POTASSIUM SERUM 5.9 MEQ/L (3.5-5.1)
[2019-11-13] MEDS: HEPARIN SOD (PORCINE) 5000UNITS/ML 1ML VIAL/SYRINGE SC SCH ×3 (06:19→21:44)
[2019-11-13 08:00] VITALS: BP 150/70
[2019-11-13] MEDS ORDERED: SUCROFERRIC OXYHYDROXIDE 500MG CHEW TAB (VELPHORO) PO SCH (08:00)
[2019-11-13] MEDS ORDERED: HYDROmorphone (DILAUDID) 4 MG TAB PO PRN (11:30)
[2019-11-13] MEDS ORDERED: METHADONE 5 MG TAB (S0109) PO SCH (12:00)
[2019-11-13] MEDS ORDERED: HYDROMORPHONE HCL 0.5 MG/ 0.5 ML SYRINGE (J1170 PER 1) IV PRN (12:15)
--- NOTE | 2019-11-13 12:36 | IPNPDOC ---
Subjective Date Seen The patient was seen on 11/13/19. Subjective Chief Complaint/HPI Continues to have crampy abdominal pain. He also continues to have watery diarrhea. No fever or chills, He says maximum pain is on the Tx kidney site on the left side. Objective Physical Examination General Exam: Positive: Alert, Cooperative, Mild Distress Eye Exam: Positive: PERRLA, Conjunctiva & lids normal, EOMI; Negative: Sclera icteric ENT Exam: Positive: Atraumatic, Mucous membr. moist/pink, Pharynx Normal Neck Exam: Positive: Supple; Negative: JVD, thyromegaly Chest Exam: Positive: Clear to auscultation, Normal air movement Heart Exam: Positive: Rate Normal, Regular Rhythm, Normal S1, Normal S2; Negative: Murmurs, Rubs Abdomen Exam: Positive: BS Hyperactive, Tenderness (in all the quadrants maximum inthe left lower quadrant. ), Other (there is some guarding, no rebound) Extremity Exam: Negative: Clubbing, Cyanosis, Edema Skin Exam: Positive: Nl turgor and temperature; Negative: Rash, Breakdown Neuro Exam: Positive: Normal Speech, Normal Tone, Other Assessment /Plan Assessment Mr. Lara is a 39-year-old with a history of ESRD, [place]'s disease, neuropathy, cyclic vomiting syndrome, on chronic opiates methadone and hydrocodone was ad mitted for evaluation of N/V/D , abdominal pain and management of mild fluid overload 2/2 missing dialysis. 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 though not very compliant at baseline. Hyperkalemia and hyponatremia. getting HD today N/V/D and abdominal pain Possibly 2/2 gastroenteritis / f/u GI panel pain control with IV dilaudid and continue home methadone, zofran. will empirically give metronidazole. Hypoglycemia 2/2 n/v now resolved Bradycardia Likely 2/2 methadone use Left infrahilar inflitrate f/u 2 view xray to r/o PNA Anemia of chronic disease HH close to goal HTN amlodpine, clonidine, labetalol, hydralazine Anxiety alprazolam, escitalopram Acute on Chronic Pain Neuropathic pain. continue methadone and will give IV dilaudid. Plan/VTE VTE Prophylaxis Ordered?: Yes VS, I&O, 24H, [facility] Vital Signs/I&O Vital Signs Date Time Temp Pulse Resp B/P (MAP) Pulse Ox O2 Delivery O2 Flow Rate FiO2 11/13/19 08:00 98.6 63 18 150/70 (96) 94 Room Air I&O- Last 24 Hours up to 6 AM 11/13/19 06:00 Intake Total 0 ml Output Total 0 ml Balance 0 ml Laboratory Data 24H LABS Laboratory Tests 2 11/12/19 16:58: Immature Granulocyte % (Auto) 0.3, Neutrophils (%) (Auto) 86.7H, Lymphocytes (%) (Auto) 7.3L, Monocytes (%) (Auto) 5.4H, Eosinophils (%) (Auto) 0.0, Basophils (%) (Auto) 0.3, Neutrophils # (Auto) 6.5, Lymphocytes # (Auto) 0.5L, Monocytes # (Auto) 0.4, Eosinophils # (Auto) 0.0, Basophils # (Auto) 0.0, Nucleated Red Blood Cells % (auto) 0.0, Anion Gap 11, Glomerular Filtration Rate 4.9L, Calcium Level 8.3L, Total Bilirubin 0.9, Direct Bilirubin 0.3H, Aspartate Amino Transf (AST/SGOT) 5L, Alanine Aminotransferase (ALT/SGPT) 13, Alkaline Phosphatase 88, MG-Lkk-W-Type Natriuretic Peptide [id number], Total Protein 6.0L, Albumin 3.0L, Albumin/Globulin Ratio 1.0, Thyroid Stimulating Hormone (TSH) 0.920 11/12/19 17:00: POC Glucose (Misc Panel) 42L, POC Sodium (Misc Panel) 127L, POC Potassium (Misc Panel) 6.0H, POC Chloride (Misc Panel) 90L, POC Total CO2 (Misc Panel) 25.0, POC Blood Urea Nitrogen (Misc Panel 50H, POC Ionized Calcium (Misc Panel) 4.3L, POC Creatinine (Misc Panel) 12.4H, POC Hematocrit (Misc Panel) 35.0L 11/12/19 17:12: POC Troponin I (Misc) 0.01 11/12/19 18:09: Bedside Glucose (Misc Panel) 83 11/12/19 19:08: Bedside Glucose (Misc Panel) 55L 11/12/19 20:14: Bedside Glucose (Misc Panel) 94 11/12/19 21:26: Bedside Glucose (Misc Panel) 48L 11/12/19 21:59: Lactic Acid Level 1.3 11/12/19 22:30: Bedside Glucose (Misc Panel) 73 11/13/19 00:21: Bedside Glucose (Misc Panel) 57L 11/13/19 01:07: Bedside Glucose (Misc Panel) 115H 11/13/19 04:32: Nucleated Red Blood Cells % (auto) 0.0, Anion Gap 11, Glomerular Filtration Rate 4.7L, Calcium Level 8.2L 11/13/19 06:37: Bedside Glucose (Misc Panel) 84 CBC/BMP Laboratory Tests 11/12/19 16:58 11/13/19 04:32 Microbiology Microbiology 11/12/19 Blood Culture, Received Pending 11/12/19 Blood Culture, Received Pending 11/12/19 Blood Culture, Received Pending SOPHIE GALARZA MD Nov 13, 2019 12:36
[2019-11-13] MEDS: metroNIDAZOLE 500 MG in IV 1 EA IV SCH ×2 (14:03→20:30)
[2019-11-13 14:14] VITALS: BP 182/70
[2019-11-13] MEDS: FAMOTIDINE 20 MG TAB PO SCH (14:17)
[2019-11-13] MEDS: ESCITALOPRAM OXALATE 10 MG TAB (LEXAPRO) PO SCH (14:17)
[2019-11-13] MEDS: METHADONE 10 MG TAB (S0109) PO SCH ×2 (14:19→20:28)
[2019-11-13] MEDS: amLODIPine 10 MG TAB PO SCH (14:20)
[2019-11-13] MEDS: predniSONE 10 MG TAB PO SCH (14:20)
[2019-11-13 16:00] VITALS: BP 168/89
[2019-11-13] MEDS: HYDROMORPHONE HCL 0.5 MG/ 0.5 ML SYRINGE (J1170 PER 1) IV PRN (16:56)
[2019-11-13 20:00] VITALS: BP 175/98
[2019-11-14] VITALS: BP 162/96
[2019-11-14] MEDS: HYDROMORPHONE HCL 0.5 MG/ 0.5 ML SYRINGE (J1170 PER 1) IV PRN ×5 (01:56→22:07)
[2019-11-14] MEDS: METHADONE 10 MG TAB (S0109) PO SCH ×4 (02:00→21:26)
[2019-11-14 04:00] VITALS: BP 164/93
[2019-11-14] MEDS: metroNIDAZOLE 500 MG in IV 1 EA IV SCH ×3 (04:58→21:24)
[2019-11-14 05:06] LABS: BASO % 0.6 % (0.0-1.0); HEMATOCRIT 29.4 % (42.0-52.0); HEMOGLOBIN 9.3 g/dl (13.5-17.5); LYMPH # 1.1 10^3/uL (1.5-5.0); LYMPH % 21.8 % (24.0-44.0); MEAN CORPUSCULAR HEMOGLOBIN 28.5 pg (27.0-33.0); MEAN CORPUSCULAR HGB CONC 31.6 g/dl (32.0-36.5); MEAN CORPUSCULAR VOLUME 90.2 fl (80.0-96.0); MONO # 0.4 10^3/uL (0.0-0.8); MONO % 8.7 % (0.0-5.0); NEUTROPHILS # 3.4 10^3/uL (1.5-8.5); NEUTROPHILS % 68.7 % (36.0-66.0); PLATELET COUNT, AUTOMATED 165 10^3/uL (150-450); RED BLOOD COUNT 3.26 10^6/uL (4.30-6.10)
[2019-11-14 05:29] LABS: CALCIUM LEVEL 8.7 MG/DL (8.5-10.1); CREATININE FOR GFR 7.68 MG/DL (0.70-1.30); GLOMERULAR FILTRATION RATE 8.4 (>60); POTASSIUM SERUM 4.4 MEQ/L (3.5-5.1)
[2019-11-14] MEDS: HEPARIN SOD (PORCINE) 5000UNITS/ML 1ML VIAL/SYRINGE SC SCH ×3 (05:35→21:24)
[2019-11-14] MEDS: HumaLOG INSULIN (NovoLOG) PER UNIT SC SCH ×4 (07:23→21:00)
[2019-11-14 07:44] VITALS: BP 166/83
--- NOTE | 2019-11-14 08:45 | IPNPDOC ---
Subjective Date Seen The patient was seen on 11/14/19. Subjective Chief Complaint/HPI When i went into his room he was sleeping comfortably. No further diarrhea since yesterday . However sayshis abdominal pain in unchanged and asking for something more. I explained that his is on the highest does of methadone and dialaudid and i cannot increase the doses any more as he may have respiratory compromise after this. He reported that once before when he had similar pain he had a colonoscopy and the pain improved after the colonoscopy prep and after having lots of bowel movements. Dr Mesa then felt he may have been impacted with stool causing the abdominal pain. Will get an abdominal Xray. Objective Physical Examination General Exam: Positive: Alert, Cooperative, No Acute Distress Eye Exam: Positive: PERRLA, Conjunctiva & lids normal, EOMI; Negative: Sclera icteric ENT Exam: Positive: Atraumatic, Mucous membr. moist/pink, Pharynx Normal Neck Exam: Positive: Supple; Negative: JVD, thyromegaly Chest Exam: Positive: Clear to auscultation, Normal air movement Heart Exam: Positive: Rate Normal, Regular Rhythm, Normal S1, Normal S2; Negative: Murmurs, Rubs Telemetry: Positive: No significant arrhythmia Abdomen Exam: Positive: Normal bowel sounds, Tenderness (in all the quadrants maximum inthe left lower quadrant. ), Other (there is some guarding, no rebound) Extremity Exam: Negative: Clubbing, Cyanosis, Edema Skin Exam: Positive: Nl turgor and temperature; Negative: Rash, Breakdown Neuro Exam: Positive: Normal Speech, Normal Tone, Other Assessment /Plan Assessment Mr. Lara is a 39-year-old with a history of ESRD, [place]'s disease, neuropathy, cyclic vomiting syndrome, on chronic opiates methadone and hydrocodone was admitted for evaluation of N/V/D , abdominal pain and management of mild fluid overload 2/2 missing dialysis. 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 though not very compliant at baseline. Hyperkalemia and hyponatremia. getting HD today N/V/D and abdominal pain ? gastroenteritis however no fever or elevated wbc ? viral will give metronidazole impirically Could also have stool impaction causing he pain due to the high doses of narcotics. pain control with IV dilaudid and continue home methadone, zofran. Had EGD and Colonoscopy in 2014 and 2018 normal. will get Abdominal Xray. Hypoglycemia 2/2 n/v now resolved Sinus Bradycardia Likely 2/2 methadone use Left infrahilar inflitrate atelectasis. Anemia of chronic disease HH close to goal HTN amlodpine, clonidine, labetalol, hydralazine Anxiety alprazolam, escitalopram Acute on Chronic Pain Neuropathic pain and abdominal pain now. continue methadone and will give IV dilaudid. Plan/VTE VTE Prophylaxis Ordered?: Yes VS, I&O, 24H, Fishbone Vital Signs/I&O Vital Signs Date Time Temp Pulse Resp B/P (MAP) Pulse Ox O2 Delivery O2 Flow Rate FiO2 11/14/19 07:44 98.0 59 16 166/83 (110) 93 Room Air I&O- Last 24 Hours up to 6 AM 11/14/19 05:59 Intake Total 400 ml Output Total 4000 ml Balance -3600 ml Laboratory Data 24H LABS Laboratory Tests 2 11/13/19 14:06: Bedside Glucose (Misc Panel) 79 11/13/19 17:29: Bedside Glucose (Misc Panel) 122H 11/13/19 21:37: Bedside Glucose (Misc Panel) 119H 11/14/19 04:54: Immature Granulocyte % (Auto) 0.2, Neutrophils (%) (Auto) 68.7H, Lymphocytes (%) (Auto) 21.8L, Monocytes (%) (Auto) 8.7H, Eosinophils (%) (Auto) 0.0, Basophils (%) (Auto) 0.6, Neutrophils # (Auto) 3.4, Lymphocytes # (Auto) 1.1L, Monocytes # (Auto) 0.4, Eosinophils # (Auto) 0.0, Basophils # (Auto) 0.0, Nucleated Red Blood Cells % (auto) 0.0, Anion Gap 5L, Glomerular Filtration Rate 8.4L, Calcium Level 8.7 CBC/BMP Laboratory Tests 11/14/19 04:54 Microbiology Microbiology 11/12/19 Blood Culture - Preliminary, Resulted No growth after 24 hours . All specim... 11/12/19 Blood Culture - Preliminary, Resulted No growth after 24 hours . All specim... 11/12/19 Blood Culture - Preliminary, Resulted No growth after 24 hours . All specim... SOPHIE GALARZA MD Nov 14, 2019 08:45
[2019-11-14] MEDS: cloNIDine 0.1 MG TAB PO SCH ×2 (08:58→21:26)
[2019-11-14] MEDS: **hydrALAZINE HCL** 25 MG TAB PO SCH ×3 (08:59→21:26)
[2019-11-14] MEDS: LABETALOL 200 MG TAB PO SCH ×3 (08:59→21:25)
[2019-11-14] MEDS: amLODIPine 10 MG TAB PO SCH (08:59)
[2019-11-14] MEDS: ESCITALOPRAM OXALATE 10 MG TAB (LEXAPRO) PO SCH (08:59)
[2019-11-14] MEDS: predniSONE 10 MG TAB PO SCH (08:59)
[2019-11-14] MEDS: MIRALAX *UNIT DOSE* 17GM PACKET PO SCH ×2 (09:00→21:00)
[2019-11-14] MEDS: BISACODYL 10 MG SUPP PR SCH ×2 (09:00→21:00)
[2019-11-14] MEDS: ALPRAZolam 0.5 MG TAB PO PRN ×2 (09:04→22:06)
[2019-11-14] MEDS: ONDANSETRON 4MG/2ML VIAL IV PRN ×2 (09:09→17:33)
[2019-11-14] MEDS ORDERED: DARBEPOETIN 200MCG/0.4ML *DIALYSIS* SYRINGE (J0882 PER 1MCG) IV SCH (11:00)
[2019-11-14 17:15] VITALS: BP 172/100
[2019-11-15] VITALS: BP 171/94
[2019-11-15] MEDS: METHADONE 10 MG TAB (S0109) PO SCH ×3 (02:32→13:50)
[2019-11-15] MEDS: HYDROMORPHONE HCL 0.5 MG/ 0.5 ML SYRINGE (J1170 PER 1) IV PRN ×3 (02:33→13:51)
[2019-11-15] MEDS: metroNIDAZOLE 500 MG in IV 1 EA IV SCH ×2 (05:00→13:50)
[2019-11-15 06:15] LABS: BASO % 0.4 % (0.0-1.0); EOS % 0.2 % (0.0-3.0); HEMATOCRIT 29.2 % (42.0-52.0); HEMOGLOBIN 9.3 g/dl (13.5-17.5); LYMPH # 1.4 10^3/uL (1.5-5.0); LYMPH % 28.3 % (24.0-44.0); MEAN CORPUSCULAR HGB CONC 31.8 g/dl (32.0-36.5); MONO # 0.5 10^3/uL (0.0-0.8); MONO % 9.4 % (0.0-5.0); NEUTROPHILS # 3.1 10^3/uL (1.5-8.5); NEUTROPHILS % 61.5 % (36.0-66.0); PLATELET COUNT, AUTOMATED 167 10^3/uL (150-450); RED BLOOD COUNT 3.21 10^6/uL (4.30-6.10)
[2019-11-15 06:25] LABS: CALCIUM LEVEL 8.7 MG/DL (8.5-10.1); CREATININE FOR GFR 5.53 MG/DL (0.70-1.30); GLOMERULAR FILTRATION RATE 12.3 (>60); POTASSIUM SERUM 3.9 MEQ/L (3.5-5.1)
[2019-11-15] MEDS: HEPARIN SOD (PORCINE) 5000UNITS/ML 1ML VIAL/SYRINGE SC SCH ×2 (06:47→13:50)
[2019-11-15] MEDS: HumaLOG INSULIN (NovoLOG) PER UNIT SC SCH (07:08)
[2019-11-15 07:59] VITALS: BP 175/97
[2019-11-15] MEDS: ESCITALOPRAM OXALATE 10 MG TAB (LEXAPRO) PO SCH (08:45)
[2019-11-15] MEDS: predniSONE 10 MG TAB PO SCH (08:45)
[2019-11-15] MEDS: FAMOTIDINE 20 MG TAB PO SCH (08:45)
[2019-11-15 08:46] VITALS: BP 175/97
[2019-11-15] MEDS: **hydrALAZINE HCL** 25 MG TAB PO SCH ×2 (08:46→16:00)
[2019-11-15] MEDS: cloNIDine 0.1 MG TAB PO SCH (08:46)
[2019-11-15] MEDS: MIRALAX *UNIT DOSE* 17GM PACKET PO SCH (08:47)
[2019-11-15] MEDS: amLODIPine 10 MG TAB PO SCH (08:47)
[2019-11-15] MEDS: LABETALOL 200 MG TAB PO SCH ×2 (08:47→16:00)
[2019-11-15] MEDS: BISACODYL 10 MG SUPP PR SCH (08:48)
[2019-11-15] MEDS: ONDANSETRON 4MG/2ML VIAL IV PRN (08:52)
[2019-11-15] MEDS: ALPRAZolam 0.5 MG TAB PO PRN (08:58)
[2019-11-15] MEDS ORDERED: PANTOPRAZOLE 40MG TAB (PROTONIX) PO SCH (10:00)
--- NOTE | 2019-11-15 10:08 | IPNPDOC ---
Subjective Date Seen The patient was seen on 11/15/19. Subjective Chief Complaint/HPI Continues to have abdominal pain but it is better. Now pain in the epigastrium, periumbilical region and in the left lower quadrant at the site of the renal tx.. No diarrhea after coming to the hospital so GI panel could be sent, no nausea, tolerating food. Patient reports that he was told by vascular surgeon where he had gone for evaluation of PD cath placement that he had 3 to 4 hernias that need to be fixed before another PD cath can be placed. Our CT scans since last year have not shown any hernias this I discussed with the patient. Objective Physical Examination General Exam: Positive: Alert, Cooperative, No Acute Distress Eye Exam: Positive: PERRLA, Conjunctiva & lids normal, EOMI; Negative: Sclera icteric ENT Exam: Positive: Atraumatic, Mucous membr. moist/pink, Pharynx Normal Neck Exam: Positive: Supple; Negative: JVD, thyromegaly Chest Exam: Positive: Clear to auscultation, Normal air movement Heart Exam: Positive: Rate Normal, Regular Rhythm, Normal S1, Normal S2; Negative: Murmurs, Rubs Telemetry: Positive: No significant arrhythmia Abdomen Exam: Positive: Normal bowel sounds, Tenderness (in all the quadrants maximum inthe left lower quadrant. ), Other (there is some guarding, no rebound) Extremity Exam: Negative: Clubbing, Cyanosis, Edema Skin Exam: Positive: Nl turgor and temperature; Negative: Rash, Breakdown Neuro Exam: Positive: Normal Speech, Normal Tone, Other Assessment /Plan Assessment Mr. Lara is a 39-year-old with a history of ESRD, [place]'s disease, neuropathy, cyclic vomiting syndrome, on chronic opiates methadone and hydrocodone was admitted for evaluation of N/V/D , abdominal pain and management of mild fluid overload 2/2 missing dialysis. 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 though not very compliant at baseline. Hyperkalemia and hyponatremia resolved N/V/D and abdominal pain ? gastroenteritis however no fever or elevated wbc ? viral gastroenteritis given metronidazole impirically Could also have stool impaction causing he pain due to the high doses of narcotics. pateitn had a good bowel movement . patient refused bowel meds. pain control with IV dilaudid and continue home methadone, zofran. Had EGD and Colonoscopy in 2014 and 2018 normal. Abdominal Xray. ? gastritis will start pantoprazole. Hypoglycemia 2/2 n/v now resolved Sinus Bradycardia Likely 2/2 methadone use Left infrahilar infiltrate atelectasis. Anemia of chronic disease HH close to goal HTN amlodpine, clonidine, labetalol, hydralazine Anxiety alprazolam, escitalopram Acute on Chronic Pain Neuropathic pain and abdominal pain now. continue methadone , IV dilaudid. Plan/VTE VTE Prophylaxis Ordered?: Yes VS, I&O, 24H, Fishbone Vital Signs/I&O Vital Signs Date Time Temp Pulse Resp B/P (MAP) Pulse Ox O2 Delivery O2 Flow Rate FiO2 11/15/19 02:43 18 11/15/19 00:00 98.6 57 171/94 (119) 96 Room Air I&O- Last 24 Hours up to 6 AM 11/15/19 06:59 Intake Total 810 ml Output Total 3000 ml Balance -2190 ml Laboratory Data 24H LABS Laboratory Tests 2 11/14/19 11:52: Bedside Glucose (Misc Panel) 141H 11/14/19 17:45: Bedside Glucose (Misc Panel) 82 11/14/19 20:18: Bedside Glucose (Misc Panel) 144H 11/15/19 05:35: Immature Granulocyte % (Auto) 0.2, Neutrophils (%) (Auto) 61.5, Lymphocytes (%) (Auto) 28.3, Monocytes (%) (Auto) 9.4H, Eosinophils (%) (Auto) 0.2, Basophils (%) (Auto) 0.4, Neutrophils # (Auto) 3.1, Lymphocytes # (Auto) 1.4L, Monocytes # (Auto) 0.5, Eosinophils # (Auto) 0.0, Basophils # (Auto) 0.0, Nucleated Red Blood Cells % (auto) 0.0, Anion Gap 6L, Glomerular Filtration Rate 12.3L, Calcium Level 8.7 CBC/BMP Laboratory Tests 11/15/19 05:35 Microbiology Microbiology 11/12/19 Blood Culture - Preliminary, Resulted No Growth after 48 hours. All Specime... 11/12/19 Blood Culture - Preliminary, Resulted No Growth after 48 hours. All Specime... 11/12/19 Blood Culture - Preliminary, Resulted No Growth after 48 hours. All Specime... Discharge Summary General Date of Admission Nov 12, 2019 at 20:47 Date of Discharge 11/15/19 Discharge Summary PROCEDURES PERFORMED DURING STAY: [None]. DISCHARGE DIAGNOSES: Viral gastroenteritis Cyclic vomiting syndrome Gastritis Narcotic dependence Sinus Bradycardia ESRD 2/2 [place]'s dz Hyperkalemia Hyponatremia H/o failed renal transplants x 2 Anemia of chronic disease HTN Chronic Abdominal pain Chronic Neuropathic pain Anxiety COMPLICATIONS/CHIEF COMPLAINT: Noncompliance. HOSPITAL COURSE: Mr. Lara is a 39-year-old with a history of ESRD, [place]'s disease, neuropathy, cyclic vomiting syndrome, on chronic opiates methadone and hydrocodone was admitted for evaluation of N/V/D for 2 days, abdominal pain and management of mild fluid overload 2/2 missing dialysis. It was felt that he had viral gastroenteritis and gastritis. He had 2 back to back HD sessions. He was give IV dilaudid and continued on methadone. He has chronic abdominal and leg pain and is dependent on narcotics. DISCHARGE MEDICATIONS: Please see below. ALLERGIES: Please see below. PHYSICAL EXAMINATION ON DISCHARGE: As above LABORATORY DATA: Please see below. ACTIVITY: [As tolerated]. DIET: As tolerated DISPOSITION: 01 Home, Self-Care. DISCHARGE INSTRUCTIONS: Follow up PMD in 1 week DISCHARGE CONDITION: [Stable]. TIME SPENT ON DISCHARGE: 35 minutes. Vital Signs/I&Os Vital Signs Date Time Temp Pulse Resp B/P (MAP) Pulse Ox O2 Delivery O2 Flow Rate FiO2 11/15/19 14:01 18 Room Air 11/15/19 08:46 175/97 11/15/19 07:59 98.6 58 91 I&O- Last 24 Hours up to 6 AM 11/16/19 05:59 Intake Total 760 ml Output Total 0 ml Balance 760 ml Microbiology Microbiology 11/12/19 Blood Culture - Preliminary, Resulted No Growth after 72 hours. All specime... 11/12/19 Blood Culture - Preliminary, Resulted No Growth after 72 hours. All specime... 11/12/19 Blood Culture - Preliminary, Resulted No Growth after 72 hours. All specime... Discharge Medications Scheduled Amlodipine Besylate (Amlodipine Besylate) 10 Mg Tablet, 10 MG PO DAILY, (Reported) Clonidine HCl (Clonidine HCl) 0.1 Mg Tablet, 0.1 MG PO BID, (Reported) Escitalopram Oxalate (Escitalopram Oxalate) 10 Mg Tablet, 10 MG PO DAILY, (Reported) Hydralazine HCl (Hydralazine HCl) 25 Mg Tablet, 25 MG PO TID, (Reported) 0600, 1300, 2200 Labetalol HCl (Labetalol HCl) 200 Mg Tab, 400 MG PO TID, (Reported) 0600, 1300, 2200 Methadone HCl (Dolophine HCl) 10 Mg Tab, 45 MG PO Q6H, (Reported) Metronidazole (Flagyl) 500 Mg Tablet, 500 MG PO Q8H Pantoprazole Sodium (Pantoprazole Sodium) 40 Mg Tablet.dr, 40 MG PO DAILY Prednisone (Prednisone) 10 Mg Tablet, 10 MG PO DAILY, (Reported) Sucroferric Oxyhydroxide (Velphoro) 500 Mg Tab.chew, 1,000 MG PO WM, (Reported) Scheduled PRN Alprazolam (Alprazolam) 1 Mg Tablet, 1 MG PO BID PRN for ANXIETY, (Reported) Hydromorphone HCl (Hydromorphone HCl) 8 Mg Tablet, 8 MG PO QID PRN for PAIN, (Reported) Sildenafil Citrate (Viagra) 100 Mg Tablet, 100 MG PO ASDIRECTED PRN for ERECTILE DYSFUNCTION, (Reported) Allergies Coded Allergies: amitriptyline (Verified Adverse Reaction, Mild, DOES NOT TOLERATE,ANXIETY, 08/13/19) duloxetine (Verified Adverse Reaction, Mild, ANXIETY, 08/13/19) gabapentin (Verified Adverse Reaction, Unknown, ANEMIA, 08/13/19) SOPHIE GALARZA MD Nov 15, 2019 07:53
[2019-11-15] MEDS ORDERED: PANT40TA29 PO (12:40)
[2019-11-15] MEDS ORDERED: FLAG500T PO (12:43)
--- NOTE | 2019-11-18 09:34 | REP ---
CHEST X-RAY: 2-VIEWS HISTORY: Follow-up on infrahilar infiltrate. COMPARISON: Chest x-ray 11/12/2019. FINDINGS: There is linear plate-like atelectasis just above the minor fissure in the right mid lung field with some adjacent infiltrate similar to yesterdays radiograph 11/12/2019. Todays views exposed a better level of inspiration and there is improved aeration in the lower lobe regions bilaterally. Some increased markings are seen over the dome of the diaphragm in the right lower lobe. There is old posttraumatic deformity of the right clavicle. Monitoring electrode is seen. Cardiomegaly is observed. No pleural effusion is seen. IMPRESSION: Right upper lobe and right lower lobe infiltrate suspected. Improved aeration in the bases. MTDD
--- NOTE | 2019-11-20 11:21 | CR ---
NEPHROLOGY CONSULTATION DATE OF CONSULTATION: 11/13/2019 REASON FOR CONSULTATION: To assist in the management in end-stage renal disease and hyperkalemia. HISTORY OF PRESENT ILLNESS: The patient is a 39-year-old gentleman with multiple chronic comorbid conditions. He has end-stage renal disease with failed kidney transplant, hypertension, history of noncompliance and substance abuse. He missed his dialysis on Saturday and , and presented to the Emergency Room late in the evening on and was admitted due to abdominal pain. His potassium level was 6.0. I was consulted this morning by hospitalist service for need for dialysis. PAST MEDICAL AND SURGICAL HISTORY: Significant for: 1. Hypertension. 2. 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 3. History of chronic back pain. 4. History of severe neuropathy in his lower extremities. 5. History of aortic regurgitation by echocardiogram. 6. History of avascular necrosis of right calcaneus. 7. History of anxiety. 8. History of ORIF right thumb. 9. History of peritoneal dialysis in the past. 10. History of kidney transplant 2004 and 2013. 11. History of left arm AV fistula creation. 12. History of left meniscus surgery for knee. FAMILY HISTORY: Significant for Dents disease. PERSONAL AND SOCIAL HISTORY: Patient is a former smoker. Denies any alcohol use. He has history of chronic opiate and Methadone use. I doubt that he is not using any recreational drugs. ALLERGIES: Patient has allergy to Amitriptyline, Duloxetine and Gabapentin. MEDICATIONS: Home medications include: 1. Amlodipine 10 mg daily. 2. Clonidine 0.1 mg b.i.d. 3. Famotidine 40 mg daily. 4. Hydralazine 25 mg t.i.d. 5. Labetalol 200 mg two tablets t.i.d. 6. Methadone 45 mg every 6 hours. 7. Prednisone 10 mg daily. 8. Velphoro 500 mg two tablets b.i.d. with meals. 9. Alprazolam 1 mg b.i.d. p.r.n. anxiety. 10. Hydromorphone 8 mg tablet q.i.d. p.r.n. pain. 11. Viagra 100 mg as needed for erectile dysfunction. REVIEW OF SYSTEMS: Denies any fever or chills. He has a history of frequent headaches. Ears, nose and throat are unremarkable. Cardiovascular system is significant for hypertension and valvular heart disease. Respiratory system is negative for cough or hemoptysis. GI system is as per history of present illness. Patient reports abdominal pain and nausea. Denies any diarrhea at present. system is significant for two failed kidney transplants. He denies any dysuria or hematuria. Musculoskeletal system is significant for chronic back pain and lower extremity pain. Neurological system is significant for severe neuropathy in his lower extremities. Psychosocial system is significant for depression, anxiety and noncompliance. Hematological system is negative for any fdc anticoagulation. Endocrine system is negative for diabetes or thyroid problems. PHYSICAL EXAMINATION: Temperature 98.6 degrees Fahrenheit, heart rate 64 per minute, respiratory rate 18 per minute, blood pressure 150/70 mmHg and oxygen saturation 94% on room air. Head is atraumatic. Pupils equal and reactive to light and sclerae anicteric. Neck is supple, and JVD not abnormally elevated. Heart sounds are regular with a systolic murmur grade 2/6. Lungs sound clear to auscultation. Abdomen is diffusely tender, and bowel sounds are present. No palpable organomegaly. Extremities without any cyanosis or clubbing. He has tattoos on his extremities. AV fistula in his left arm is patent. Neurologically, he is awake and without a focal deficit. LABORATORY DATA: Todays WBC 6.3, hemoglobin 9.2, hematocrit 28.5, platelets 181,000. Sodium 128, potassium 5.9, CO2 26, BUN 56, creatinine 12.7. Last evening, potassium 6.1. BNP level 156,756. PROBLEMS: 1. Hyperkalemia: Related to missed hemodialysis treatments and will be corrected with dialysis today. No other intervention would be needed. 2. End-stage renal disease: Patient has missed two dialysis treatments due to noncompliance and not feeling well. He will be dialyzed this morning and we will plan to dialyze him again tomorrow. 3. Hyponatremia: This is related to end-stage renal disease and GI problems. This will be corrected with dialysis and no other intervention would be needed. 4. Elevated BNP level: This is most likely related to his valvular heart disease. Clinically, he does not look too decompensated to account for this high level of a BNP. We will repeat his level after correcting his volume status in the next couple of days. 5. Anemia: This is related to end-stage renal disease and we will monitor closely. We will consider starting Aranesp if needed. 6. Abdominal pain: Etiology is uncertain. CAT scan was unremarkable. He is being followed by hospitalist service. I am not sure if this pain is related to his transplant kidney, though his pain is more in his upper abdomen. Thank you for involving me in the care of this patient. Nephrology service will follow along with you. SHANNAN
--- NOTE | 2019-11-20 11:24 | IPN ---
DATE: 11/14/2019 SUBJECTIVE: The patient was seen and examined at the bedside today morning. He is afebrile, hemodynamically stable. He does report some abdominal bloating, otherwise denies any pains at this time. He was dialyzed yesterday. He tolerated the hemodialysis procedure well and he is again scheduled to be dialyzed in the afternoon before I see him. OBJECTIVE: Vital signs: Temperature is 98.1 degrees Fahrenheit, blood pressure 172/100, pulse 66, respiratory rate of 18, saturating 96% on room air. Intake and output: There is no urine output recorded. Ultrafiltration with hemodialysis was 4 liters yesterday. Weight in the bed scale is 81 kg today. PHYSICAL EXAMINATION: The patient is awake, alert and oriented x3, laying in bed in no apparent distress. Head and neck examination: Extraocular muscles intact. Pupils equally round and reactive to light. Mucous membranes are moist. Neck: Supple. There is no jugular venous distention (JVD). Cardiovascular: S1, S2 regular rate. No edema of the bilateral lower extremities. Respiratory: Chest is clear to auscultation bilaterally. Bilateral equal air entry. No rales or rhonchi. Abdomen: Soft. Positive bowel sounds. Nontender. Old surgical scars are noted. Musculoskeletal: No clubbing or cyanosis. Pulses are 2+. 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 Power is 5/5 in all extremities. LABORATORY DATA: Complete blood count (CBC) showed a WBC 5, hemoglobin 9, 3, platelets of 165. Basic metabolic panel (BMP) shows sodium 130, potassium 4.4, chloride 93, bicarbonate 32, BUN 27, creatinine 7.6. CURRENT PATIENT MEDICATIONS: The patient's medications were all reviewed by [id number]. There is no significant change in the medications as compared with yesterday. ASSESSMENT AND PLAN: 1. End-stage renal disease. The patient missed his hemodialysis and he was overloaded. He was dialyzed yesterday. He will get another session of hemodialysis done today. 2. Hyponatremia. He has hypovolemic hyponatremia. Sodium is slowly improving with hemodialysis and ultrafiltration. 3. Anemia on end-stage renal disease. Hemoglobin is suboptimal. I have started him on Aranesp 200 mcg IV with hemodialysis. 4. Hypertension. Blood pressure was improved with improvement in the volume status as well. Continue current dose of amlodipine 10 mg by mouth daily, clonidine 0.1 mg by mouth twice a day. Hydralazine 25 mg by mouth three times a day, labetalol 400 mg by mouth three times a day. 5. History of failed renal allograft with acute rejection. The patient is currently on prednisone 10 mg by mouth daily and denies any hematuria or pain at the transplant site. 6. Hyperkalemia. It has resolved with hemodialysis, potassium is 4.4. He will be dialyzed with 2K bath today. MTDD
--- NOTE | 2019-11-20 11:26 | IPN ---
DATE: 11/15/2019 SUBJECTIVE: Patient was seen and examined at the bedside today morning. He is afebrile and hemodynamically stable. He reports his shortness of breath is significantly better. Abdominal pain is also improving. He was dialyzed yesterday and 3 liters of fluid was removed, which he tolerated well. OBJECTIVE: Vital signs: Temperature 98.6 degrees Fahrenheit, blood pressure 175/97, pulse 58, respiratory rate 18, saturating 91% on room air. Intake and output: Ultrafiltration with hemodialysis was 3 liters yesterday. Weight on the bed scale is 78.5 kg. PHYSICAL EXAMINATION: GENERAL: Patient is awake, alert and oriented x3, lying in bed in no apparent distress. HEAD AND NECK: Extraocular muscles intact. Pupils equally round and reactive to light. Mucous membranes are moist. Neck is supple. There is no JVD. CARDIOVASCULAR: S1, S2, regular rate. No edema of the bilateral lower extremities. RESPIRATORY: Chest is clear to auscultation bilaterally. Bilateral equal air entry. No rales or rhonchi. ABDOMEN: Soft, positive bowel sounds, nontender. No organomegaly. MUSCULOSKELETAL: No clubbing or cyanosis. Pulses are 2+. MUSHROOM CULTIVATOR: No focal deficit. Power is 5/5 in all extremities. LABORATORY REVIEW: CBC showed WBC 5, hemoglobin 9.3, platelets 167,000. BMP showed sodium 134, potassium 3.9, chloride 98, bicarb 30, BUN 18, creatinine 5.5. MICROBIOLOGY: All the cultures are negative so far. CURRENT INPATIENT MEDICATIONS: Patient's medications were all reviewed by myself. There is no change in the medications today as compared with yesterday. ASSESSMENT AND PLAN: 1. End-stage renal disease on hemodialysis: Patient was dialyzed two days in a row. Volume status was optimal. Next hemodialysis will be done as an outpatient. 2. Hypertension: It is improving with improvement in the volume status. Continue the current antihypertensive regimen at this time. Further adjustment will be done as an outpatient. 3. Anemia and end-stage renal disease: Patient was given a dose of Aranesp with dialysis. The rest of the anemia management will be done as an outpatient. DISPOSITION: Patient is optimized to be discharged home from nephrology standpoint. He will follow-up with outpatient dialysis center next week. [facility]ITAL[facility]
--- NOTE | 2019-12-02 11:50 | REP ---
KUB ABDOMEN AND PELVIS COMPARISON: 03/27/2018. HISTORY: Abdominal pain and constipation. TECHNIQUE: Two AP views of the abdomen and pelvis are performed. FINDINGS: There is moderate fecal material seen throughout the colon. There is no evidence of small bowel obstruction, with no dilated small bowel loops identified. There are several calcifications overlying the kidneys compatible with multiple bilateral renal calculi. The largest on the right is in the lower pole 1 cm in diameter and on the left mid to upper aspect measuring 1.2 cm maximally. There are metallic clips projecting in the left pelvis. There are a couple of tiny phleboliths unchanged in the pelvis. IMPRESSION: Moderate feces throughout the colon with no evidence of bowel obstruction. Multiple bilateral renal calculi. MTDD
== END 2019-11-15 16:45 | disposition home or self-care (01) | DRG 391 ==
LOC: M ED 15:49 → M ED INP 20:47 → ENRESERV 21:11 → M PCU 23:29
PROVIDERS: ADMIT Internal Medicine; ATTEND Internal Medicine Nephrology
PROC: 5A1D70Z Performance of Urinary Filtration, Intermittent, Less than 6 Hours Per Day (ICD-10-PCS; principal; 2019-11-13)
DX: A09 Infectious gastroenteritis and colitis, unspecified (principal); N18.6 End stage renal disease; I12.0 Hypertensive chronic kidney disease with stage 5 chronic kidney disease or end stage renal disease; T86.12 Kidney transplant failure; J98.11 Atelectasis; E87.1 Hypo-osmolality and hyponatremia; I44.0 Atrioventricular block, first degree; D63.1 Anemia in chronic kidney disease; F41.9 Anxiety disorder, unspecified; E87.70 Fluid overload, unspecified; E16.2 Hypoglycemia, unspecified; K31.89 Other diseases of stomach and duodenum; R11.10 Vomiting, unspecified; E87.5 Hyperkalemia; Z79.891 Long term (current) use of opiate analgesic; Z99.2 Dependence on renal dialysis; Z91.15 Patient's noncompliance with renal dialysis; Z79.899 Other long term (current) drug therapy; Z88.8 Allergy status to other drugs, medicaments and biological substances; Z87.891 Personal history of nicotine dependence

== ENCOUNTER 2019-11-19 07:31 | Emergency (ER) | payer MEDICARE ==
[~2019-11-19] VITALS: Ht 182.9 cm; Wt 86.4 kg
[~2019-11-19 07:31] MED LIST changes: +ALPR1TAB3 PO; +AMLO1TAB25 PO; +FLAG500T PO; +HYDR-3910 PO; +PANT40TA29 PO; +PATIENT COMMENT
[2019-11-19] MEDS ORDERED: [UNRECOGNIZED DRUG - CODE] IJ (07:49)
[2019-11-19 08:12] VITALS: BP 138/72
== END 2019-11-19 08:19 | disposition home or self-care (01) ==
LOC: M ED 07:31
DX: N18.6 End stage renal disease (principal); I34.0 Nonrheumatic mitral (valve) insufficiency; G89.29 Other chronic pain; M54.9 Dorsalgia, unspecified; Z86.59 Personal history of other mental and behavioral disorders; Z87.891 Personal history of nicotine dependence; Z88.8 Allergy status to other drugs, medicaments and biological substances; Z94.0 Kidney transplant status

== ENCOUNTER → 2020-03-08 | Outpatient (REF) | payer MEDICARE ==
[~2020-03-08] MED LIST changes: +ESCI10TA16 PO; -ESCI10TA2 PO; +[UNRECOGNIZED DRUG - CODE] IJ
== END ==
LOC: M LAB REF 16:53
PROVIDERS: ATTEND Internal Medicine Nephrology
DX: Z71.51 Drug abuse counseling and surveillance of drug abuser (principal); Z79.891 Long term (current) use of opiate analgesic

== ENCOUNTER 2020-05-24 21:37 | Emergency (ER) | payer MEDICARE, MEDICAID ==
[~2020-05-24] VITALS: Ht 182.9 cm; Wt 77.0 kg
--- NOTE | 2020-05-24 23:16 | REPVR ---
PROCEDURE INFORMATION: Exam: XR Right Hand Exam date and time: 05/24/2020 10:44 PM Age: 40 years old Clinical indication: Other: Lac; Additional info: Trauma TECHNIQUE: Imaging protocol: XR Right hand. Views: 3 or more views. COMPARISON: IL Hand, Alejo, Lat 02/06/2019 3:56 AM FINDINGS: Bones/joints: There is deformity of the distal end of the right 2nd metacarpal consistent with old healed fracture. There is no evidence of fracture. Soft tissues: There is a bandage overlying the 2nd digit and no evidence of opaque foreign body. History of laceration in this area. IMPRESSION: No evidence of fracture. Electronically signed by: Elijah Baptiste On 05/24/2020 23:17:01 PM
[2020-05-25] MEDS ORDERED: LIDOCAINE 1% MDV 20ML VIAL SC ONE (00:25)
[2020-05-25] MEDS ORDERED: LIDOCAINE 1% MDV 20ML VIAL As Ordered ONE (00:28)
[2020-05-25] MEDS ORDERED: ACETAMINOPHEN 325 MG TAB PO ONE (00:30)
[2020-05-25 00:31] VITALS: BP 175/93
[2020-05-25] MEDS ORDERED: ACETAMINOPHEN 325 MG TAB As Ordered ONE (00:36)
[2020-05-25] MEDS ORDERED: CEPHALEXIN 500 MG CAP As Ordered ONE (01:55)
[2020-05-25] MEDS ORDERED: NORCO 5/325MG TABLET (BULK FOR ED) As Ordered ONE (02:08)
== END 2020-05-25 07:49 | disposition home or self-care (01) ==
LOC: M ED 21:37
DX: S61.210A Laceration without foreign body of right index finger without damage to nail, initial encounter (principal); W25.XXXA Contact with sharp glass, initial encounter; Y92.018 Other place in single-family (private) house as the place of occurrence of the external cause; I10 Essential (primary) hypertension; K21.9 Gastro-esophageal reflux disease without esophagitis; F41.9 Anxiety disorder, unspecified; G62.9 Polyneuropathy, unspecified; Z88.8 Allergy status to other drugs, medicaments and biological substances; Z79.899 Other long term (current) drug therapy; Z79.891 Long term (current) use of opiate analgesic

== ENCOUNTER 2020-06-15 18:25 | Inpatient (IN) | payer MEDICARE, MEDICAID ==
[~2020-06-15] VITALS: Ht 182.9 cm; Wt 80.5 kg
[2020-06-15] MEDS ORDERED: LOSA50TA88 (18:52)
[2020-06-15] MEDS ORDERED: LEXA1TAB (18:52)
[2020-06-15] MEDS ORDERED: PANT40TA29 (18:52)
[2020-06-15] MEDS ORDERED: SEVE800T3 (18:52)
[2020-06-15] MEDS ORDERED: FAMO40TA3 (18:52)
[2020-06-15] MEDS ORDERED: METH10TA2 (18:52)
--- NOTE | 2020-06-15 20:11 | REP ---
INDICATION: syncope v seizure. COMPARISON: Multiple TECHNIQUE: Portable FINDINGS: The technique utilized in obtaining the radiograph has magnified the cardiac silhouette and accentuated the interstitial markings. There is cardiomegaly accentuated by technique. The interstitial markings are diffusely increased. There is a haziness throughout the pulmonary vascularity there is pulmonary vascular redistribution. There are no patchy opacities or pleural effusions. The osseous structures are stable and intact. IMPRESSION: Mild CHF pattern as described above <Electronically signed by Laz Serrano > 06/15/202006
[2020-06-15 20:26] LABS: BASO % 0.6 % (0.0-1.0); EOS # 0.2 10^3/uL (0.0-0.5); EOS % 3.1 % (0.0-3.0); HEMATOCRIT 36.1 % (42.0-52.0); HEMOGLOBIN 11.3 g/dl (13.5-17.5); LYMPH # 0.8 10^3/uL (1.5-5.0); MEAN CORPUSCULAR HEMOGLOBIN 28.6 pg (27.0-33.0); MEAN CORPUSCULAR HGB CONC 31.3 g/dl (32.0-36.5); MEAN CORPUSCULAR VOLUME 91.4 fl (80.0-96.0); MONO # 0.6 10^3/uL (0.0-0.8); MONO % 8.4 % (2.0-8.0); NEUTROPHILS # 5.1 10^3/uL (1.5-8.5); NEUTROPHILS % 75.5 % (36.0-66.0); PLATELET COUNT, AUTOMATED 165 10^3/uL (150-450); RED BLOOD COUNT 3.95 10^6/uL (4.30-6.10); WHITE BLOOD COUNT 6.8 10^3/uL (4.0-10.0)
[2020-06-15 20:58] LABS: ALBUMIN 3.3 GM/DL (3.2-5.2); BILIRUBIN,DIRECT 0.2 MG/DL (0.0-0.2); BILIRUBIN,TOTAL 0.6 MG/DL (0.2-1.0); CALCIUM LEVEL 9.2 MG/DL (8.5-10.1); CREATININE FOR GFR 7.75 MG/DL (0.70-1.30); GLOMERULAR FILTRATION RATE 8.3 (>60); MAGNESIUM LEVEL 2.6 MG/DL (1.8-2.4); POTASSIUM SERUM 5.7 MEQ/L (3.5-5.1); TOTAL PROTEIN 7.2 GM/DL (6.4-8.2)
[2020-06-15] MEDS ORDERED: NS 500 ML IV ONE ×2 (21:05→22:40)
--- NOTE | 2020-06-15 22:05 | REPVR ---
PROCEDURE INFORMATION: Exam: CT Head Without Contrast Exam date and time: 06/15/2020 9:29 PM Age: 40 years old Clinical indication: Syncope and collapse; Additional info: Syncope v seizure TECHNIQUE: Imaging protocol: Computed tomography of the head without contrast. Radiation optimization: All CT scans at this facility use at least one of these dose optimization techniques: automated exposure control; mA and/or kV adjustment per patient size (includes targeted exams where dose is matched to clinical indication); or iterative reconstruction. COMPARISON: CT Head without contrast 10/12/2019 10:59 AM FINDINGS: Brain: Normal. No hemorrhage. Unremarkable white matter. No mass effect. Cerebral ventricles: No ventriculomegaly. Bones/joints: Unremarkable. No acute fracture. Paranasal sinuses: Visualized sinuses are unremarkable. No fluid levels. Mastoid air cells: Visualized mastoid air cells are well aerated. Soft tissues: Unremarkable. IMPRESSION: No acute intracranial abnormality. Electronically signed by: Diego Benavides On 06/15/2020 22:04:55 PM
[2020-06-15] MEDS ORDERED: SOD POLYSTYRENE SULFONATE SUSP 15 GM/60 ML UD PO ONE (22:40)
--- NOTE | 2020-06-15 23:21 | ECGEPIP ---
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
[2020-06-16] MEDS ORDERED: MOM 30ML SUSPENSION UDC PO PRN
[2020-06-16] MEDS ORDERED: MAALOX 30 ML SUSP *UDC PO PRN
[2020-06-16 00:06] LABS: RSV AMPLIFICATION NEGATIVE (NEGATIVE)
[2020-06-16] MEDS ORDERED: LOSA50TA88 PO (00:20)
[2020-06-16] MEDS ORDERED: LIDO2.5C15 TOP (00:20)
[2020-06-16] MEDS ORDERED: FAMO40TA3 PO (00:20)
[2020-06-16] MEDS ORDERED: RENV2TAB PO (00:20)
[2020-06-16] MEDS ORDERED: PANT-23 PO (00:20)
[2020-06-16] MEDS ORDERED: METH10TA2 PO ×2 (00:20)
[2020-06-16] MEDS ORDERED: LEXA1TAB PO (00:20)
[2020-06-16] MEDS ORDERED: VELP5CHW PO (00:20)
--- NOTE | 2020-06-16 02:18 | HPEPDOC ---
[facility] Medical History & Physical Date of Admission Jun 16, 2020 Date of Service: Jun 16, 2020 History and Physical CHIEF COMPLAINT: seizure activity HISTORY OF PRESENT ILLNESS: 40-year-old male with a history of ESRD secondary to [place]'s disease, status post 2 transplants dialysis on [facility], hypertension, chronic back pain, presented to the ER after he had 2 episodes of seizure-like activity today. The first was prior to his appointment with the pain clinic. Patient felt twitching and tonic-clonic activity of this neck without loss of consciousness followed by a similar episode with LOC. Shortly after arriving home patient states that he fainted was on the ground for an unspecified period of time and had a memory loss. Shortly after he does not report any urinary incontinence. Neurology was contacted from the ER doctor did not recommend starting antiepileptics. Nephrology was informed in the ER for patient's need for dialysis. Found to have electrolyte abnormalities including hyperkalemia and hyperphosphatemia. He was given a dose of Kayexalate. Patient will be admitted to hospitalist service for workup of seizure activity versus syncope as well as ESRD. 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 Cyclic vomiting Aortic regurgitation/mitral regurgitation (echo 2011) Avascular necrosis of the right calcaneus/talus 2014 Cyclic vomiting syndrome from chronic marijuana use 2015 Anxiety ORIF right thumb (1999) Peritoneal dialysis tube placement (2004, 2012) History of kidney transplants (2004, 2013) Left arm AV fistula (2011) Left AV fistula bypass (2011) Left meniscal knee surgery (2016) SOCIAL HISTORY: Is a former smoker He does not use alcohol He doesn't use recreational drugs, but has a history of opiate use and is currently on methadone FAMILY HISTORY: [place]'s disease ALLERGIES: Please see below. REVIEW OF SYSTEMS: 10 point review of systems was conducted, relevant findings are noted in the HPI. HOME MEDICATIONS: Please see below. PHYSICAL EXAMINATION: VITAL SIGNS: please see below General: NAD, comfortable HEENT: PERRLA, EOMI, sclerae clear Neck: supple, normal ROM, no JVD Respiratory: lungs CTAB, no wheeze, no rales, no crackles CVS: RRR, normal S1, S2, no murmurs Abdo: soft, no masses, no hepatosplenomegaly, BS+, no rebound tenderness Extremities: Obvious fistula. extremities sensitive to touch due to neuropathy MSK: no joint deformities, normal ROM. Neuro: no focal neuro deficits, moving all 4 extremities, CN2-12 intact. Strength 5/5 in all 4 extremities. No nystagmus. Psych: calm, cooperative, AAO x 3 LABORATORY DATA: See below. IMAGING: CT head wo contrast (06/15/20) No acute intracranial abnormality. CXR (06/15/20): Mild CHF pattern as described above MICROBIOLOGY: Please see below. ASSESSMENT: 40-year-old male with a history of ESRD secondary to [place]'s disease, status post 2 transplants dialysis on TThS, hypertension, chronic back pain, presented to the ER after he had 2 episodes of seizure-like activity today. The first was prior to his appointment with the pain clinic. Patient felt twitching and tonic-clonic activity of this neck without loss of consciousness followed by a similar episode with LOC. Shortly after arriving home patient states that he fainted was on the ground for an unspecified period of time and had a memory loss. Shortly after he does not report any urinary incontinence. Neurology was contacted from the ER doctor did not recommend starting antiepileptics. Nephrology was informed in the ER for patient's need for dialysis. Found to have electrolyte abnormalities including hyperkalemia and hyperphosphatemia. He was given a dose of Kayexalate. Patient will be admitted to hospitalist service for workup of seizure activity versus syncope as well as ESRD. . PLAN: Seizure activity vs syncope - hx suggests seizure activity given report of tonic clonic movement, LOC, postictal period - Dr. Moreno was called from ER, did not rec starting antiepileptics - will obtain EEG - patient follows with [place] [facility], consider neuro consult in AM - CT head wo acute changes - positive for orthosatic hypotension - given 500 cc bolus, after approval by Dr. Tinoco ESRD on HD TThS - last HD on 06/14/20 - Dr. Michelle consulted from ER - mild pulmonary edema - fluid status to be managed with HD. Hyperkalemia - K 5.7, EKG without changes - s/p kayaxalate in E - HD for 06/15/20 Hyperphosphatemia - plan for HD Chronic anemia - in setting ESRD Chronic HTN - resume home meds - c/w amlodipine, clonidine, labetalol, hydralazine Anxiety - c/w alprazolam and escitalopram Chronic pain - methadone program, previously dosage 50 mg q6h, with patient reporting his pain clinic increasing dosage to 50 mg TID and 70 mg qhs. I discussed with pharmacy, would feel it is appropriate confirm with pain clinic in the morning. For now, will c/w previously reported dose. Vital Signs Vital Signs Date Time Temp Pulse Resp B/P (MAP) Pulse Ox O2 Delivery O2 Flow Rate FiO2 06/16/20 01:30 157/88 (111) 06/16/20 01:25 68 97 06/15/20 18:26 98.6 22 Room Air Laboratory Data Labs 24H Laboratory Tests 2 06/15/20 20:06: Immature Granulocyte % (Auto) 0.4, Neutrophils (%) (Auto) 75.5H, Lymphocytes (%) (Auto) 12.0L, Monocytes (%) (Auto) 8.4H, Eosinophils (%) (Auto) 3.1H, Basophils (%) (Auto) 0.6, Neutrophils # (Auto) 5.1, Lymphocytes # (Auto) 0.8L, Monocytes # (Auto) 0.6, Eosinophils # (Auto) 0.2, Basophils # (Auto) 0.0, Nucleated Red Blood Cells % (auto) 0.0, Anion Gap 7L, Glomerular Filtration Rate 8.3L, Calcium Level 9.2, Phosphorus Level 6.0H, Magnesium Level 2.6H, Total Bilirubin 0.6, Direct Bilirubin 0.2, Aspartate Amino Transf (AST/SGOT) 37, Alanine Aminotransferase (ALT/SGPT) 24, Alkaline Phosphatase 167H, Total Protein 7.2, Albumin 3.3, Albumin/Globulin Ratio 0.8 06/15/20 20:19: Bedside Glucose (Misc Panel) 88 06/15/20 23:14: Coronavirus (COVID-19)(PCR) NEGATIVE, Influenza Type A (RT-PCR) NEGATIVE, Influenza Type B (RT-PCR) NEGATIVE, Respiratory Syncytial Virus (PCR) NEGATIVE CBC/BMP Laboratory Tests 06/15/20 20:06 Home Medications Scheduled Alprazolam (Alprazolam) 1 Mg Tablet, 1 MG PO BID Amlodipine Besylate (Amlodipine Besylate) 10 Mg Tablet, 10 MG PO DAILY Escitalopram Oxalate (Lexapro) 10 Mg Tablet, 10 MG PO DAILY Famotidine (Famotidine) 40 Mg Tablet, 40 MG PO DAILY Hydralazine HCl (Hydralazine HCl) 25 Mg Tablet, 25 MG PO QID Labetalol HCl (Labetalol HCl) 200 Mg Tab, 400 MG PO BID Lidocaine/Prilocaine (Lidocaine-Prilocaine Cream) 2.5%/2.5% Cream..g., 1 DOSE TOP 3XW SATURDAY, SATURDAY AND SATURDAY PRIOR TO DIALYSIS Losartan Potassium (Losartan Potassium) 50 Mg Tablet, 50 MG PO DAILY Methadone HCl (Methadone HCl) 10 Mg Tablet, 50 MG PO TID Methadone HCl (Methadone HCl) 10 Mg Tablet, 70 MG PO QHS Pantoprazole Sodium (Pantoprazole Sodium) 40 Mg Tablet.dr, 40 MG PO DAILY Sevelamer Carbonate (Renvela) 800 Mg Tablet, 1,600 MG PO WM Sucroferric Oxyhydroxide (Velphoro) 500 Mg Tab.chew, 500 MG PO WM Scheduled PRN Hydromorphone HCl (Hydromorphone HCl) 8 Mg Tablet, 8 MG PO 5XD PRN for PAIN Allergies Coded Allergies: amitriptyline (Verified Adverse Reaction, Mild, DOES NOT TOLERATE,ANXIETY, 11/19/19) duloxetine (Verified Adverse Reaction, Mild, ANXIETY, 11/19/19) gabapentin (Verified Adverse Reaction, Unknown, ANEMIA, 11/19/19) ALEKS GARCIA MD Jun 16, 2020 02:18
[2020-06-16] MEDS ORDERED: HYDROmorphone (DILAUDID) 4 MG TAB PO PRN (02:45)
[2020-06-16] MEDS: ACETAMINOPHEN TAB 650MG DOSE (2X325MG) PO PRN (05:30)
[2020-06-16] MEDS: HEPARIN SOD (PORCINE) 5000UNITS/ML 1ML VIAL/SYRINGE SC SCH ×3 (06:00→22:00)
[2020-06-16] MEDS ORDERED: PILL CUTTER 1 EACH XX PRN (06:35)
[2020-06-16 07:29] LABS: BASO # 0.1 10^3/uL (0.0-0.2); EOS % 0.5 % (0.0-3.0); HEMOGLOBIN 11.6 g/dl (13.5-17.5); LYMPH % 16.8 % (24.0-44.0); MEAN CORPUSCULAR HEMOGLOBIN 28.7 pg (27.0-33.0); MEAN CORPUSCULAR HGB CONC 31.4 g/dl (32.0-36.5); MEAN CORPUSCULAR VOLUME 91.6 fl (80.0-96.0); MONO # 0.6 10^3/uL (0.0-0.8); MONO % 9.3 % (2.0-8.0); NEUTROPHILS # 4.4 10^3/uL (1.5-8.5); NEUTROPHILS % 72.2 % (36.0-66.0); PLATELET COUNT, AUTOMATED 168 10^3/uL (150-450); RED BLOOD COUNT 4.04 10^6/uL (4.30-6.10); WHITE BLOOD COUNT 6.1 10^3/uL (4.0-10.0)
[2020-06-16] MEDS: METHADONE 10 MG TAB (S0109) PO SCH ×4 (07:36→23:21)
[2020-06-16 07:50] LABS: ALBUMIN 3.3 GM/DL (3.2-5.2); BILIRUBIN,TOTAL 0.6 MG/DL (0.2-1.0); CALCIUM LEVEL 9.6 MG/DL (8.5-10.1); MAGNESIUM LEVEL 2.6 MG/DL (1.8-2.4); PHOSPHORUS LEVEL 7.3 MG/DL (2.5-4.9); TOTAL PROTEIN 6.8 GM/DL (6.4-8.2)
[2020-06-16] MEDS: LABETALOL 200 MG TAB PO SCH ×2 (09:00→20:20)
[2020-06-16] MEDS: LOSARTAN 50MG TABLET PO SCH (09:00)
[2020-06-16] MEDS ORDERED: FAMOTIDINE 20 MG TAB PO SCH ×2 (09:00→21:00)
[2020-06-16] MEDS ORDERED: EMLA CREAM 5GM TUBE (LIDOCAINE/PRILOCAINE) TOP SCH (09:00)
[2020-06-16] MEDS: **hydrALAZINE HCL** 25 MG TAB PO SCH ×4 (09:00→20:19)
[2020-06-16] MEDS: DOCUSATE SODIUM 100MG CAPSULE PO SCH ×2 (09:23→20:19)
[2020-06-16] MEDS: SUCROFERRIC OXYHYDROXIDE 500MG CHEW TAB (VELPHORO) PO SCH ×3 (09:23→17:42)
[2020-06-16] MEDS: ESCITALOPRAM OXALATE 10 MG TAB (LEXAPRO) PO SCH (09:23)
[2020-06-16] MEDS: ALPRAZolam 0.5 MG TAB PO SCH ×2 (09:23→20:20)
[2020-06-16] MEDS: PANTOPRAZOLE 40MG TAB (PROTONIX) PO SCH (09:23)
[2020-06-16] MEDS: (RENVELA) SEVELAMER **CARBONate** 800 MG TAB PO SCH ×3 (09:24→17:43)
[2020-06-16] MEDS ORDERED: LIDOCAINE 1% SDV 5ML VIAL SC PRN (09:35)
--- NOTE | 2020-06-16 13:57 | CR ---
CONSULTATION DATE: 06/16/2020 REQUESTING PHYSICIAN: ALEKS GARCIA MD CONSULTING PHYSICIAN: GRACE GARCIA MD REASON FOR CONSULTATION: Management of endstage renal disease and hyperkalemia. CHIEF COMPLAINT: Patient presented to the hospital yesterday after blacking out multiple times and seizure-like activity. 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 Currently hemodialysis dependent after his second transplant failure. He gets dialysis Saturday, and Saturday. History of hypertension, other multiple comorbidities as mentioned below. He was last dialyzed the day before yesterday and 7 kg of fluid was removed. However, patient reports that yesterday he was driving to his pain clinic and he felt like he was blacking out suddenly. He also reported seizure-like activity and he had sudden contracture of his facial muscles and neck muscles. On evaluation in the Emergency Room, the patient did have orthostatic hypotension. He also had hyperkalemia with a potassium of 5.7. Patient was admitted under the Hospitalist service last night for seizure-like activity versus syncope. He was given 500 ml of normal saline bolus. He was also given Kayexalate for hyperkalemia. The case was discussed with myself by the admitting ER physician, Dr. Locke. I saw and evaluated the patient today morning in the Emergency Room holding area. He reports that he is feeling better today as compared with yesterday. Today is the patient's regular day of dialysis. PAST MEDICAL HISTORY: 1. 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 2. Hypertension. 3. Chronic back pain. 4. Peripheral neuropathy. 5. 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 6. Chronic marijuana abuse and cyclical vomiting syndrome. 7. History of high dose pain medication and benzodiazepine dependence, and he follows with the Pain Clinic. PAST SURGICAL HISTORY: 1. Status post kidney transplant x2. 2. Open reduction internal fixation of the right thumb. 3. History of PD catheter placement in 2004 and 2012. 4. Nephrectomy. 5. Left arm AV fistula. 6. Left meniscal knee surgery in 2017. ALLERGIES: He is allergic to Amitriptyline, Duloxetine and Gabapentin. FAMILY HISTORY: There is a positive family history of Cabarrus's disease. SOCIAL HISTORY: The patient uses marijuana. There is a positive history of opioid and benzodiazepine use. He denies any drug abuse at this time. He is currently on Methadone. REVIEW OF SYSTEMS: Constitutional: He denies any fevers or chills. Eyes: He denies any double vision. He did report blurry vision yesterday and felt like everything was blacking out. Cardiovascular: He denies any chest pain. Respiratory: He denies any shortness of breath. GI: Denies any nausea or vomiting. Genitourinary: Denies any dysuria or hematuria. Musculoskeletal: He did have muscle twitching and seizure-like activity yesterday. Hematological/Oncological: Denies any easy bleeding or bruising. COOK FRUIT: She did report seizure-like activity. All other review of systems are negative. PHYSICAL EXAMINATION: GENERAL: The patient is awake, alert and oriented x3, laying in bed. VITAL SIGNS: Temperature is 98 degrees Fahrenheit, blood pressure is 159/85, pulse is 72, respiratory rate is 18, saturating 99% on room air. INTAKE AND OUTPUT: Patient was given 500 ml of normal saline bolus. HEAD AND NECK: Extraocular muscles are intact. Pupils equally round and reactive to light. Mucous membranes are moist. Neck is supple. There is no significant JVD. CARDIOVASCULAR: S1 and S2, regular rate. No edema of the bilateral lower extremities. RESPIRATORY: Chest is clear to auscultation bilaterally. Bilateral equal air entry. No rales or rhonchi. ABDOMEN: Soft, positive bowel sounds, nontender. Old surgical scars. MUSCULOSKELETAL: No clubbing or cyanosis. Pulses are 2+. Left arm AV fistula was noted. COOK FRUIT: No focal deficit. Power is 5/5 in all extremities. LABORATORY DATA: CBC showed a WBC of 6.1, hemoglobin 11.6, platelets 168,000, BMP showed a showed a sodium of 135, potassium was 5.7 yesterday and after Kayexalate it is 5 today, chloride 97, bicarbonate 26, BUN 38, creatinine is 9. Phosphorus 7.3. Magnesium is 2.6. Imaging: CT of the head was done, it showed no acute intracranial abnormality. CURRENT INPATIENT MEDICATIONS: The patient's medications were all reviewed by myself. He was given 500 ml bolus, he is on Tylenol p.r.n., Xanax 1 mg p.o. twice a day, amlodipine 10 mg daily, Colace 100 mg p.o. twice a day, Lexapro 10 mg p.o. daily, Pepcid 10 mg p.o. Saturday, and Saturday, Heparin 5000 sub q. q. 8 hourly, hydralazine 25 mg p.o. q.i.d., Dilaudid 8 mg p.o. p.r.n., Labetalol 400 mg p.o. twice a day, Losartan 50 mg p.o. daily, Methadone 50 mg p.o. q.h.s., Milk of Magnesia 30 ml p.o. daily, Protonix 40 mg p.o. daily, Renvela 1600 mg p.o. with meals, Kayexalate 30 grams p.o. x1 dose was given and he is on Velphoro 500 mg p.o. with meals. ASSESSMENT AND PLAN: 1. Syncope and possible seizure-like activity. Patient had orthostatic hypotension, the day before yesterday he had 7 liters removed, 500 ml bolus was already given. Blood pressures are better. I have talked with the dialysis center. I have increased his dry weight to 80.5 kg. No fluid will be removed during dialysis today. 2. Endstage renal disease. Today is patient's regular day of dialysis, he will be dialyzed for clearance only, no fluid will be removed. 3. Hyperkalemia, patient already was given Kayexalate, he will be dialyzed with a 2k bath today. 4. Hyperphosphatemia and chronic kidney disease mineral bone disease. Continue current dose of Velphoro. He is noncompliant with binders as an outpatient. 5. Anemia and endstage renal disease, hemoglobin level is optimal. No need of PAOLA administration at this time. 6. Hypertension, continue current dose of Labetalol, hydralazine, Clonidine and amlodipine. Blood pressures are optimal. 7. History of anxiety. Polysubstance dependence including opioids and benzodiazepines. Okay to continue to continue Methadone, however I would stop his Dilaudid at this time. Thank you for involving me in the care of this patient. I shall be happy to follow the patient along with you tomorrow morning.
[2020-06-16 16:45] VITALS: BP 178/84
[2020-06-16 22:00] VITALS: BP 175/99
[2020-06-17] MEDS: METHADONE 10 MG TAB (S0109) PO SCH ×2 (05:19→12:22)
[2020-06-17] MEDS: HEPARIN SOD (PORCINE) 5000UNITS/ML 1ML VIAL/SYRINGE SC SCH ×2 (05:19→13:22)
[2020-06-17 06:00] VITALS: BP 168/86
[2020-06-17] MEDS: (RENVELA) SEVELAMER **CARBONate** 800 MG TAB PO SCH ×2 (08:15→12:22)
[2020-06-17] MEDS: SUCROFERRIC OXYHYDROXIDE 500MG CHEW TAB (VELPHORO) PO SCH ×2 (08:15→12:22)
[2020-06-17] MEDS: ALPRAZolam 0.5 MG TAB PO SCH (08:17)
[2020-06-17] MEDS: LABETALOL 200 MG TAB PO SCH (08:17)
[2020-06-17] MEDS: DOCUSATE SODIUM 100MG CAPSULE PO SCH (08:17)
[2020-06-17] MEDS: **hydrALAZINE HCL** 25 MG TAB PO SCH ×2 (08:18→12:22)
[2020-06-17] MEDS: ACETAMINOPHEN TAB 650MG DOSE (2X325MG) PO PRN (08:18)
[2020-06-17] MEDS: LOSARTAN 50MG TABLET PO SCH (08:18)
[2020-06-17] MEDS: PANTOPRAZOLE 40MG TAB (PROTONIX) PO SCH (08:18)
[2020-06-17] MEDS: ESCITALOPRAM OXALATE 10 MG TAB (LEXAPRO) PO SCH (08:18)
[2020-06-17 09:18] LABS: HEMATOCRIT 35.6 % (42.0-52.0); HEMOGLOBIN 11.2 g/dl (13.5-17.5); MEAN CORPUSCULAR HEMOGLOBIN 29.2 pg (27.0-33.0); MEAN CORPUSCULAR HGB CONC 31.5 g/dl (32.0-36.5); MEAN CORPUSCULAR VOLUME 92.7 fl (80.0-96.0); PLATELET COUNT, AUTOMATED 181 10^3/uL (150-450); RED BLOOD COUNT 3.84 10^6/uL (4.30-6.10); WHITE BLOOD COUNT 6.3 10^3/uL (4.0-10.0)
[2020-06-17 09:51] LABS: ALBUMIN 3.2 GM/DL (3.2-5.2); CALCIUM LEVEL 9.5 MG/DL (8.5-10.1); CREATININE FOR GFR 6.3 MG/DL (0.70-1.30); GLOMERULAR FILTRATION RATE 10.5 (>60); PHOSPHORUS LEVEL 5.5 MG/DL (2.5-4.9); POTASSIUM SERUM 4.4 MEQ/L (3.5-5.1)
[2020-06-17 12:22] VITALS: BP 160/88
--- NOTE | 2020-06-17 12:56 | IPN ---
NEPHROLOGY PROGRESS NOTE DATE: 06/17/2020 SUBJECTIVE: Patient was seen and examined at the bedside today morning. He was dialyzed yesterday. He tolerated the hemodialysis procedure well. Not much fluid was removed because there was no evidence of edema. He is feeling better today and denies any active complaints. OBJECTIVE: VITAL SIGNS: Temperature 98.5 degrees Fahrenheit, blood pressure 168/66, pulse 64, respiratory rate 16, saturating 94% on room air. INTAKE AND OUTPUT: Ultrafiltration with hemodialysis was 250 mL. Weight in the bed scale is 80.5 kg. PHYSICAL EXAMINATION: GENERAL: Patient is awake, alert, oriented times three, laying in bed, no apparent distress. HEAD AND NECK EXAM: Extraocular muscles intact. Pupils equally round and reactive to light. Mucous membranes are moist. Neck is supple. There is no jugular venous distention (JVD). CARDIOVASCULAR: S1, S2. Regular rate. No edema of the bilateral lower extremities. RESPIRATORY: Chest is clear to auscultation bilaterally. Bilateral equal air entry. No rales or rhonchi. ABDOMEN: Soft. Positive bowel sounds. Nontender. No organomegaly. MUSCULOSKELETAL: No clubbing or cyanosis. Left arm arteriovenous (AV) fistula is noted. CENTRAL NERVOUS SYSTEM ([employer]ER): No focal deficits. Power is 5/5 in all extremities. LABORATORY REVIEW: CBC showed WBC 6.3, hemoglobin 11.2, platelets 191. BMP showed sodium 134, potassium 4.4, chloride 95, bicarbonate 31, BUN 21, creatinine 6.3, phosphorus 5.5. CURRENT INPATIENT MEDICATIONS: Patient's medications were all reviewed by myself. There is no significant change in the medications today as compared with yesterday. ASSESSMENT AND PLAN: 1. End-stage renal disease. Patient was dialyzed according to his regular schedule yesterday. Next hemodialysis will be done as outpatient. 2. Syncope and possible seizure-like activity. Patient's dry weight was changed to 80.5 kg. Blood pressures are better. He is not orthostatic anymore. 3. Hyperkalemia. It is resolved now with dialysis. Potassium is within the acceptable range. 4. Hypertension. It is controlled with the current regimen of labetalol, hydralazine, clonidine and amlodipine. DISPOSITION: Patient is okay to be discharged from nephrology standpoint. We will follow up as outpatient at the dialysis center.
[2020-06-17 14:00] VITALS: BP 140/62
--- NOTE | 2020-06-19 10:18 | EEG ---
ELECTROENCEPHALOGRAM DATE: 06/16/2020 DIAGNOSIS: Seizure. EEG# [id number]. REFERRING PHYSICIAN: Naresh Santana MD HISTORY: Patient is a 40-year-old man who was admitted at [facility] due to a passing out spell. This EEG was done to rule out epileptic potential. He is currently taking labetalol, amlodipine, hydralazine, losartan, Pepcid, methadone, Lexapro, Xanax, etc. TECHNICAL DESCRIPTION: This digital EEG was recorded by 21-scalp, ear, and two EKG electrodes and was reviewed in bipolar and referential montages following reformatting in 10-20 international electrode placement system. INTERPRETATION: Patient was noted to be in drowsy state during this EEG. Resting and awake background rhythm consisted of 7.5 Hz theta activity measuring 15-40 microvolts in amplitude, which was symmetric and reactive to eye opening. Attenuation of posterior dominant rhythm was seen during transition into drowsiness. No sleep was achieved. Hyperventilation and photic stimulation remained unremarkable. EKG revealed normal sinus rhythm. No focal, lateralizing, or epileptiform abnormalities were seen. No relevant clinical activity was noted. CONCLUSION: This EEG in awake and drowsy states is mildly abnormal due to presence of mild generalized slowing, consistent with mild nonspecific diffuse cerebral dysfunction such as seen in encephalopathy due to multiple potential causes. No epileptiform abnormalities were seen. Clinical correlation is recommended.
--- NOTE | 2020-06-20 09:47 | ECHO ---
DATE OF PROCEDURE: 06/17/2020 Age: 40 Gender: Male Height: 72 inches Weight: 178 pounds Body surface area: 2.03 m2 PATIENT LOCATION: Inpatient [address] [place] [address], Room 4202. REFERRING PHYSICIAN: Naresh Santana MD. INDICATION: Syncope. MEASUREMENTS: 2D Measurements: RV 5.1 cm LV 6.0 cm Septum 1.2 cm Posterior wall 1.2 cm Aortic Root 4.0 cm LA 4.9 cm LVEF 60% Doppler Measurements: AV 1.85 m/s LVOT 1.12 m/s LVOT diameter 2.1 cm MV-E 141, A 39, E/A ratio 3.7 Early mitral deceleration time 177 msec E prime medial 8.7, A prime medial 5, E prime lateral 10 Average E/E prime ratio 15.1/PCWP 20.6 mmHg PV 1.2 m/s Pulmonary artery acceleration time 92 msec RVSP 47 mmHg IVC 2.3 cm COMMENTS: Normal sinus rhythm/sinus bradycardia without intraventricular conduction disturbance. M-mode and two-dimensional echocardiography was performed with pulse, continuous wave, color flow, and tissue Doppler studies. Mildly dilated and hypertrophied left ventricle with normal wall motion. Moderately dilated left atrium with grade 2 LV diastolic dysfunction and mildly elevated estimated mean left atrial pressure. Moderately dilated right heart chambers with no right ventricle free wall motion and Doppler evidence of at least moderate pulmonary hypertension. Mildly dilated inferior vena cava with reduced respiratory collapse in keeping with an elevated central venous pressure. Mildly dilated aortic root. Mild aortic valvular sclerosis without stenosis, but mild insufficiency. Mild degenerative changes of the mitral valve apparatus with mild insufficiency. Normal appearing tricuspid valve with mild insufficiency. No apparent intracardiac mass or pericardial effusion. MTDD
== END 2020-06-17 14:28 | disposition home or self-care (01) | DRG 100 ==
LOC: M ED 18:25 → M ED INP 18:26 → ENRESERV 06-16 11:23 → M MSPAV 06-16 16:31 → OBSVTOIN 06-17 07:40
PROVIDERS: ADMIT Family Medicine; ATTEND Internal Medicine Nephrology
PROC: 5A1D70Z Performance of Urinary Filtration, Intermittent, Less than 6 Hours Per Day (ICD-10-PCS; principal; 2020-06-16)
DX: R56.9 Unspecified convulsions (principal); N18.6 End stage renal disease; T86.12 Kidney transplant failure; E87.5 Hyperkalemia; E83.39 Other disorders of phosphorus metabolism; G62.9 Polyneuropathy, unspecified; F41.9 Anxiety disorder, unspecified; D63.1 Anemia in chronic kidney disease; Z99.2 Dependence on renal dialysis; Z20.822 Contact with and (suspected) exposure to COVID-19; Z79.899 Other long term (current) drug therapy; Z87.891 Personal history of nicotine dependence

== ENCOUNTER → 2020-06-29 | Outpatient (CLI) | payer SELFPAY ==
[~2020-06-29] MED LIST changes: +FAMO40TA3; +LEXA1TAB; +LEXA1TAB PO; +LIDO1CRE42 TOP; -LIDO2.5C15 TOP; +LOSA50TA88; +LOSA50TA88 PO; +METH10TA2; +PANT-23 PO; +PANT40TA29; +SEVE800T3
== END ==
LOC: M LABSMTC 11:50
PROVIDERS: ATTEND Pediatrics
DX: Z20.822 Contact with and (suspected) exposure to COVID-19 (principal)

== ENCOUNTER 2021-04-13 06:48 | Inpatient (IN) | payer MEDICARE, MEDICAID ==
[~2021-04-13] VITALS: Ht 182.9 cm; Wt 90.2 kg
[~2021-04-13 06:48] MED LIST changes: -DOXY100C PO; +DOXY100C3 PO; +LOSA25TA13 PO; -LOSA25TA14 PO; +LOSA50TA28; +LOSA50TA28 PO; -LOSA50TA88; -LOSA50TA88 PO; +METH-1177; +METH-1177 PO; -METH10TA2
[2021-04-13] MEDS ORDERED: DEXTROSE 50% 50 ML SYRINGE As Ordered ONE (06:59)
[2021-04-13] MEDS ORDERED: DEXTROSE 50% 50 ML SYRINGE IV STA (07:00)
[2021-04-13 07:24] LABS: VENOUS BASE EXCESS -5.6 (-2.0-2.0); VENOUS HCO3 21.2 MEQ/L (23.0-27.0); VENOUS O2 SATURATION 88.6 % (60.0-80.0); VENOUS PARTIAL PRESSURE CO2 46.6 mmHg (38.0-50.0); VENOUS PARTIAL PRESSURE O2 65.5 mmHg (30.0-50.0); VENOUS PH 7.275 UNITS (7.330-7.430); VENOUS STANDARD HCO3 19.7 MEQ/L; VENOUS TOTAL CO2 22.6 MEQ/L (24.0-28.0)
[2021-04-13 07:25] LABS: HEMATOCRIT 32.5 % (42.0-52.0); HEMOGLOBIN 10.3 g/dl (13.5-17.5); MEAN CORPUSCULAR HGB CONC 31.7 g/dl (32.0-36.5); MEAN CORPUSCULAR VOLUME 97.9 fl (80.0-96.0); PLATELET COUNT, AUTOMATED 187 10^3/uL (150-450); RED BLOOD COUNT 3.32 10^6/uL (4.30-6.10); WHITE BLOOD COUNT 7.8 10^3/uL (4.0-10.0)
[2021-04-13 08:13] LABS: ACETAMINOPHEN LEVEL < 2.0 UG/ML (10.0-30.0); ALBUMIN 3.3 GM/DL (3.2-5.2); ALT/SGPT 11 U/L (12-78); BILIRUBIN,DIRECT 0.1 MG/DL (0.0-0.2); BILIRUBIN,TOTAL 0.4 MG/DL (0.2-1.0); BLOOD UREA NITROGEN 50 MG/DL (7-18); CALCIUM LEVEL 8.5 MG/DL (8.5-10.1); CARBON DIOXIDE LEVEL 26 MEQ/L (21-32); CHLORIDE LEVEL 94 MEQ/L (98-107); CREATININE FOR GFR 9.58 MG/DL (0.70-1.30); ETHYL ALCOHOL (ETHANOL) < 0.003 % (0.000-0.010); GLOMERULAR FILTRATION RATE 6.5 (>60); GLUCOSE, FASTING 40 MG/DL (70-100); POTASSIUM SERUM 6.8 MEQ/L (3.5-5.1); SALICYLATE LEVEL 4.5 MG/DL (5.0-30.0); SODIUM LEVEL 129 MEQ/L (136-145); TOTAL PROTEIN 7.3 GM/DL (6.4-8.2)
[2021-04-13 08:14] LABS: EOSINOPHILS 7 % (0-3); LYMPHOCYTES 13 % (16-44); MONOCYTES 4 % (0-5); NEUTROPHILS 76 % (28-66)
[2021-04-13 08:15] LABS: PLATELET ESTIMATE NORMAL (NORMAL)
[2021-04-13] MEDS ORDERED: D10W/0.45% SODIUM CHLORIDE 1,000 ML IV SCH (08:15)
[2021-04-13] MEDS ORDERED: SODIUM BICARBONATE 4.2% INJ 10ML SYRINGE IV ONE (08:35)
[2021-04-13] MEDS ORDERED: CALCIUM CHLORIDE 10% 1 GM/10 ML SYR IV ONE (08:35)
[2021-04-13] MEDS ORDERED: LIDOCAINE 1% SDV 5ML VIAL SC PRN (08:50)
[2021-04-13] MEDS ORDERED: SODIUM CHLORIDE 0.9% 1000ML IV PRN (08:50)
[2021-04-13 08:53] LABS: OSMOLALITY SERUM 285 MOSM/KG (275-295)
[2021-04-13] MEDS ORDERED: SODIUM BICARBONATE 8.4% INJ 50 ML SYRINGE IV ONE (08:55)
[2021-04-13 09:31] LABS: RSV AMPLIFICATION NEGATIVE (NEGATIVE)
[2021-04-13] MEDS ORDERED: ROPI0.253 PO (09:48)
[2021-04-13] MEDS ORDERED: METH-1177 PO (09:48)
[2021-04-13] MEDS ORDERED: D-101000 PO (09:48)
[2021-04-13] MEDS ORDERED: LOKE5PAK PO (09:48)
[2021-04-13] MEDS ORDERED: PATIENT COMMENT (09:49)
[2021-04-13] MEDS ORDERED: HOME MED LIST COMPLETE! XX SCH (09:50)
[2021-04-13] MEDS ORDERED: HYDROmorphone 4MG TABLET PO PRN (12:55)
[2021-04-13] MEDS ORDERED: GLUCOSE 4GM CHEW TABLET PO PRN (13:00)
[2021-04-13] MEDS ORDERED: DEXTROSE 50% 50 ML SYRINGE IV PRN (13:00)
[2021-04-13] MEDS ORDERED: GLUCAGON INJ 1MG VIAL SC PRN (13:00)
[2021-04-13] MEDS: LABETALOL 200 MG TAB PO SCH ×2 (14:00→22:37)
[2021-04-13] MEDS: ESCITALOPRAM OXALATE 10 MG TAB (LEXAPRO) PO SCH (17:57)
[2021-04-13] MEDS: PANTOPRAZOLE 40MG TAB (PROTONIX) PO SCH (17:57)
[2021-04-13] MEDS: LOSARTAN 50MG TABLET PO SCH (17:57)
[2021-04-13] MEDS: **hydrALAZINE HCL** 25 MG TAB PO SCH ×2 (17:57→21:00)
[2021-04-13] MEDS: HEPARIN SOD (PORCINE) 5000UNITS/ML 1ML VIAL/SYRINGE SC SCH ×2 (17:58→22:37)
[2021-04-13] MEDS: METHADONE 10 MG TAB (S0109) PO SCH ×2 (17:58→22:55)
[2021-04-13] MEDS: SUCROFERRIC OXYHYDROXIDE 500MG CHEW TAB (VELPHORO) PO SCH ×2 (18:00→18:26)
[2021-04-13] MEDS: HumaLOG INSULIN (NovoLOG) PER UNIT SC SCH ×2 (18:00→22:55)
[2021-04-13] MEDS: VITAMIN D 1,000 INTERNATIONAL UNITS TABLET PO SCH (18:04)
[2021-04-13] MEDS: (RENVELA) SEVELAMER **CARBONate** 800 MG TAB PO SCH (18:26)
[2021-04-13] MEDS: ALPRAZolam 0.5 MG TAB PO SCH (21:00)
[2021-04-13 22:00] VITALS: BP 167/85
[2021-04-13] MEDS: rOPINIRole 0.25 MG TAB(REQUIP) PO SCH (22:55)
[2021-04-14 00:26] VITALS: BP 146/93
[2021-04-14 04:13] LABS: HEMOGLOBIN 9.3 g/dl (13.5-17.5); MEAN CORPUSCULAR HGB CONC 32.1 g/dl (32.0-36.5); MEAN CORPUSCULAR VOLUME 96.7 fl (80.0-96.0); PLATELET COUNT, AUTOMATED 187 10^3/uL (150-450); WHITE BLOOD COUNT 6.8 10^3/uL (4.0-10.0)
[2021-04-14 04:25] VITALS: BP 155/84
[2021-04-14 05:17] LABS: CALCIUM LEVEL 7.9 MG/DL (8.5-10.1); CREATININE FOR GFR 5.88 MG/DL (0.70-1.30); GLOMERULAR FILTRATION RATE 11.3 (>60); POTASSIUM SERUM 5.8 MEQ/L (3.5-5.1)
[2021-04-14] MEDS: HumaLOG INSULIN (NovoLOG) PER UNIT SC SCH ×4 (05:31→23:54)
[2021-04-14] MEDS: LABETALOL 200 MG TAB PO SCH ×3 (05:50→22:01)
[2021-04-14] MEDS: HEPARIN SOD (PORCINE) 5000UNITS/ML 1ML VIAL/SYRINGE SC SCH ×3 (05:50→22:00)
[2021-04-14] MEDS: METHADONE 10 MG TAB (S0109) PO SCH ×4 (05:50→23:54)
[2021-04-14 08:00] VITALS: BP 132/78
[2021-04-14] MEDS ORDERED: LIDOCAINE 1% SDV 5ML VIAL SC PRN (08:15)
[2021-04-14] MEDS ORDERED: SODIUM CHLORIDE 0.9% 1000ML IV PRN (08:15)
[2021-04-14] MEDS: (RENVELA) SEVELAMER **CARBONate** 800 MG TAB PO SCH ×3 (09:00→18:29)
[2021-04-14] MEDS: SUCROFERRIC OXYHYDROXIDE 500MG CHEW TAB (VELPHORO) PO SCH ×3 (09:00→18:29)
[2021-04-14] MEDS: **hydrALAZINE HCL** 25 MG TAB PO SCH ×3 (10:00→20:36)
[2021-04-14 13:51] VITALS: BP 177/88
[2021-04-14] MEDS: ESCITALOPRAM OXALATE 10 MG TAB (LEXAPRO) PO SCH (13:54)
[2021-04-14] MEDS: LOSARTAN 50MG TABLET PO SCH (13:55)
[2021-04-14] MEDS: PANTOPRAZOLE 40MG TAB (PROTONIX) PO SCH (13:55)
[2021-04-14] MEDS: ALPRAZolam 0.5 MG TAB PO SCH ×2 (13:55→21:59)
[2021-04-14] MEDS: VITAMIN D 1,000 INTERNATIONAL UNITS TABLET PO SCH (13:55)
[2021-04-14 16:00] VITALS: BP_SYST 108; BP_SYST 154; BP_DIAS 57; BP_DIAS 84
[2021-04-14 20:32] VITALS: BP 158/78
[2021-04-14] MEDS: DIVALPROEX 500 MG TAB PO SCH (20:35)
[2021-04-14] MEDS: rOPINIRole 0.25 MG TAB(REQUIP) PO SCH (20:36)
[2021-04-15] VITALS: BP 158/82
[2021-04-15 04:00] VITALS: BP 169/86
[2021-04-15 05:44] LABS: HEMATOCRIT 29.2 % (42.0-52.0); MEAN CORPUSCULAR HEMOGLOBIN 30.5 pg (27.0-33.0); MEAN CORPUSCULAR HGB CONC 30.8 g/dl (32.0-36.5); PLATELET COUNT, AUTOMATED 179 10^3/uL (150-450); RED BLOOD COUNT 2.95 10^6/uL (4.30-6.10); WHITE BLOOD COUNT 5.7 10^3/uL (4.0-10.0)
[2021-04-15] MEDS: HumaLOG INSULIN (NovoLOG) PER UNIT SC SCH (06:00)
[2021-04-15] MEDS: LABETALOL 200 MG TAB PO SCH ×3 (06:02→21:42)
[2021-04-15] MEDS: HEPARIN SOD (PORCINE) 5000UNITS/ML 1ML VIAL/SYRINGE SC SCH ×3 (06:02→21:43)
[2021-04-15] MEDS: METHADONE 10 MG TAB (S0109) PO SCH ×4 (06:03→23:46)
[2021-04-15 06:14] LABS: CALCIUM LEVEL 8.9 MG/DL (8.5-10.1); CREATININE FOR GFR 5.02 MG/DL (0.70-1.30); GLOMERULAR FILTRATION RATE 13.6 (>60); MAGNESIUM LEVEL 2.1 MG/DL (1.8-2.4); POTASSIUM SERUM 5.4 MEQ/L (3.5-5.1)
[2021-04-15 08:00] VITALS: BP 160/85
[2021-04-15] MEDS: ALPRAZolam 0.5 MG TAB PO SCH ×2 (08:16→21:42)
[2021-04-15] MEDS: SUCROFERRIC OXYHYDROXIDE 500MG CHEW TAB (VELPHORO) PO SCH ×3 (08:16→17:07)
[2021-04-15] MEDS: **hydrALAZINE HCL** 25 MG TAB PO SCH ×3 (08:17→21:42)
[2021-04-15] MEDS: ESCITALOPRAM OXALATE 10 MG TAB (LEXAPRO) PO SCH (08:17)
[2021-04-15] MEDS: (RENVELA) SEVELAMER **CARBONate** 800 MG TAB PO SCH ×3 (08:17→17:06)
[2021-04-15] MEDS: VITAMIN D 1,000 INTERNATIONAL UNITS TABLET PO SCH (08:17)
[2021-04-15] MEDS: LOSARTAN 50MG TABLET PO SCH (08:17)
[2021-04-15] MEDS: PANTOPRAZOLE 40MG TAB (PROTONIX) PO SCH (08:17)
[2021-04-15] MEDS: DIVALPROEX 500 MG TAB PO SCH ×2 (08:17→21:41)
[2021-04-15] MEDS ORDERED: ISOVUE-370 76% 100ML VIAL As Ordered ONE (10:17)
[2021-04-15 12:00] VITALS: BP 154/79
[2021-04-15] MEDS ORDERED: PATIROMER SORBITEX CALCIUM 8.4 GM POWDER PACKET (VELTASSA) PO SCH (12:00)
[2021-04-15 20:00] VITALS: BP 145/78
[2021-04-15] MEDS: rOPINIRole 0.25 MG TAB(REQUIP) PO SCH (21:42)
[2021-04-16] VITALS: BP 153/85
[2021-04-16 04:00] VITALS: BP 157/90
[2021-04-16 06:20] LABS: HEMATOCRIT 28.9 % (42.0-52.0); HEMOGLOBIN 9.1 g/dl (13.5-17.5); MEAN CORPUSCULAR HEMOGLOBIN 30.5 pg (27.0-33.0); MEAN CORPUSCULAR HGB CONC 31.5 g/dl (32.0-36.5); PLATELET COUNT, AUTOMATED 179 10^3/uL (150-450); RED BLOOD COUNT 2.98 10^6/uL (4.30-6.10); WHITE BLOOD COUNT 6.8 10^3/uL (4.0-10.0)
[2021-04-16] MEDS: HEPARIN SOD (PORCINE) 5000UNITS/ML 1ML VIAL/SYRINGE SC SCH ×3 (06:44→23:38)
[2021-04-16] MEDS: METHADONE 10 MG TAB (S0109) PO SCH ×4 (06:44→23:39)
[2021-04-16] MEDS: LABETALOL 200 MG TAB PO SCH ×3 (06:45→23:39)
[2021-04-16 07:02] LABS: CALCIUM LEVEL 8.7 MG/DL (8.5-10.1); CREATININE FOR GFR 7.49 MG/DL (0.70-1.30); GLOMERULAR FILTRATION RATE 8.6 (>60); MAGNESIUM LEVEL 2.1 MG/DL (1.8-2.4); POTASSIUM SERUM 6.2 MEQ/L (3.5-5.1)
[2021-04-16 08:00] VITALS: BP 156/87
[2021-04-16] MEDS: (RENVELA) SEVELAMER **CARBONate** 800 MG TAB PO SCH ×3 (08:00→17:43)
[2021-04-16] MEDS: SUCROFERRIC OXYHYDROXIDE 500MG CHEW TAB (VELPHORO) PO SCH ×3 (08:00→17:43)
[2021-04-16 08:09] LABS: C-PEPTIDE 3.6 ng/mL (1.1-4.4); INSULIN LEVEL 2.7 uIU/mL (2.6-24.9)
[2021-04-16] MEDS: LOSARTAN 50MG TABLET PO SCH (08:42)
[2021-04-16] MEDS: VITAMIN D 1,000 INTERNATIONAL UNITS TABLET PO SCH (08:43)
[2021-04-16] MEDS: **hydrALAZINE HCL** 25 MG TAB PO SCH ×3 (08:43→23:39)
[2021-04-16] MEDS: ALPRAZolam 0.5 MG TAB PO SCH ×2 (08:43→23:38)
[2021-04-16] MEDS: ESCITALOPRAM OXALATE 10 MG TAB (LEXAPRO) PO SCH (08:43)
[2021-04-16] MEDS: PANTOPRAZOLE 40MG TAB (PROTONIX) PO SCH (08:43)
[2021-04-16] MEDS: DIVALPROEX 500 MG TAB PO SCH ×2 (08:43→23:38)
[2021-04-16 12:00] VITALS: BP 143/85
[2021-04-16 12:32] LABS: ACETONE/KETONE 0.66 MG/DL (<2.81)
[2021-04-16] MEDS: PATIROMER SORBITEX CALCIUM 8.4 GM POWDER PACKET (VELTASSA) PO SCH (13:32)
[2021-04-16 16:00] VITALS: BP 147/79
[2021-04-16 18:17] LABS: POTASSIUM SERUM 6.7 MEQ/L (3.5-5.1)
[2021-04-16] MEDS ORDERED: LIDOCAINE 1% SDV 5ML VIAL SC PRN (19:20)
[2021-04-16] MEDS ORDERED: SODIUM CHLORIDE 0.9% 1000ML IV PRN (19:20)
[2021-04-16 22:30] VITALS: BP 174/97
[2021-04-16] MEDS: rOPINIRole 0.25 MG TAB(REQUIP) PO SCH (23:37)
[2021-04-17] VITALS (8 sets, daily range): BP systolic 147–173; BP diastolic 75–89
[2021-04-17] MEDS: HEPARIN SOD (PORCINE) 5000UNITS/ML 1ML VIAL/SYRINGE SC SCH ×3 (05:55→22:43)
[2021-04-17] MEDS: METHADONE 10 MG TAB (S0109) PO SCH ×3 (05:56→18:45)
[2021-04-17] MEDS: LABETALOL 200 MG TAB PO SCH ×3 (05:56→22:43)
[2021-04-17] MEDS ORDERED: SODIUM CHLORIDE 0.9% 1000ML IV PRN (07:05)
[2021-04-17] MEDS ORDERED: LIDOCAINE 1% SDV 5ML VIAL SC PRN (07:05)
[2021-04-17] MEDS: (RENVELA) SEVELAMER **CARBONate** 800 MG TAB PO SCH ×3 (08:00→18:45)
[2021-04-17] MEDS: SUCROFERRIC OXYHYDROXIDE 500MG CHEW TAB (VELPHORO) PO SCH ×3 (08:00→18:46)
[2021-04-17 08:48] LABS: HEMATOCRIT 27.1 % (42.0-52.0); HEMOGLOBIN 8.6 g/dl (13.5-17.5); MEAN CORPUSCULAR HEMOGLOBIN 30.5 pg (27.0-33.0); MEAN CORPUSCULAR HGB CONC 31.7 g/dl (32.0-36.5); MEAN CORPUSCULAR VOLUME 96.1 fl (80.0-96.0); PLATELET COUNT, AUTOMATED 173 10^3/uL (150-450); RED BLOOD COUNT 2.82 10^6/uL (4.30-6.10); WHITE BLOOD COUNT 6.4 10^3/uL (4.0-10.0)
[2021-04-17 09:49] LABS: ALBUMIN 2.9 GM/DL (3.2-5.2); BILIRUBIN,TOTAL 0.5 MG/DL (0.2-1.0); CALCIUM LEVEL 8.3 MG/DL (8.5-10.1); CREATININE FOR GFR 6.61 MG/DL (0.70-1.30); GLOMERULAR FILTRATION RATE 9.9 (>60); POTASSIUM SERUM 5.3 MEQ/L (3.5-5.1); TOTAL PROTEIN 6.4 GM/DL (6.4-8.2)
[2021-04-17] MEDS ORDERED: DARBEPOETIN 100 MCG/0.5 ML *DIALYSIS* SYRINGE (J0882) IV SCH (10:45)
[2021-04-17] MEDS: **hydrALAZINE HCL** 25 MG TAB PO SCH ×3 (13:40→21:19)
[2021-04-17] MEDS: PATIROMER SORBITEX CALCIUM 8.4 GM POWDER PACKET (VELTASSA) PO SCH ×2 (13:57→14:00)
[2021-04-17] MEDS: DIVALPROEX 500 MG TAB PO SCH ×2 (13:59→21:19)
[2021-04-17] MEDS: LOSARTAN 50MG TABLET PO SCH (14:00)
[2021-04-17] MEDS: VITAMIN D 1,000 INTERNATIONAL UNITS TABLET PO SCH (14:00)
[2021-04-17] MEDS: PANTOPRAZOLE 40MG TAB (PROTONIX) PO SCH (14:00)
[2021-04-17] MEDS: ESCITALOPRAM OXALATE 10 MG TAB (LEXAPRO) PO SCH (14:01)
[2021-04-17] MEDS: ALPRAZolam 0.5 MG TAB PO SCH ×2 (14:14→21:19)
[2021-04-17 15:33] LABS: INR 0.97; PROTHROMBIN TIME 13.3 SECONDS (12.7-14.5)
[2021-04-17] MEDS: rOPINIRole 0.25 MG TAB(REQUIP) PO SCH (21:22)
[2021-04-18] VITALS (7 sets, daily range): BP systolic 131–152; BP diastolic 66–84
[2021-04-18] MEDS: METHADONE 10 MG TAB (S0109) PO SCH ×5 (00:10→22:52)
[2021-04-18] MEDS ORDERED: COSYNTROPIN 0.25 MG/ML VIAL (J0834 PER 0.25MG) IV ONE (05:05)
[2021-04-18 05:33] LABS: HEMATOCRIT 26.9 % (42.0-52.0); HEMOGLOBIN 8.4 g/dl (13.5-17.5); MEAN CORPUSCULAR HEMOGLOBIN 30.8 pg (27.0-33.0); MEAN CORPUSCULAR HGB CONC 31.2 g/dl (32.0-36.5); MEAN CORPUSCULAR VOLUME 98.5 fl (80.0-96.0); PLATELET COUNT, AUTOMATED 164 10^3/uL (150-450); RED BLOOD COUNT 2.73 10^6/uL (4.30-6.10); WHITE BLOOD COUNT 6.1 10^3/uL (4.0-10.0)
[2021-04-18 05:54] LABS: CALCIUM LEVEL 8.6 MG/DL (8.5-10.1); CREATININE FOR GFR 5.11 MG/DL (0.70-1.30); GLOMERULAR FILTRATION RATE 13.3 (>60); POTASSIUM SERUM 4.9 MEQ/L (3.5-5.1)
[2021-04-18] MEDS: LABETALOL 200 MG TAB PO SCH ×3 (06:17→22:52)
[2021-04-18] MEDS: HEPARIN SOD (PORCINE) 5000UNITS/ML 1ML VIAL/SYRINGE SC SCH ×3 (06:17→21:27)
[2021-04-18] MEDS: ALPRAZolam 0.5 MG TAB PO SCH ×2 (09:41→21:26)
[2021-04-18] MEDS: SUCROFERRIC OXYHYDROXIDE 500MG CHEW TAB (VELPHORO) PO SCH ×3 (09:42→17:44)
[2021-04-18] MEDS: VITAMIN D 1,000 INTERNATIONAL UNITS TABLET PO SCH (09:43)
[2021-04-18] MEDS: PANTOPRAZOLE 40MG TAB (PROTONIX) PO SCH (09:43)
[2021-04-18] MEDS: DIVALPROEX 500 MG TAB PO SCH ×2 (09:43→21:27)
[2021-04-18] MEDS: **hydrALAZINE HCL** 25 MG TAB PO SCH ×3 (09:44→21:29)
[2021-04-18] MEDS: ESCITALOPRAM OXALATE 10 MG TAB (LEXAPRO) PO SCH (09:44)
[2021-04-18] MEDS: (RENVELA) SEVELAMER **CARBONate** 800 MG TAB PO SCH ×3 (09:45→17:44)
[2021-04-18] MEDS: LOSARTAN 50MG TABLET PO SCH (09:45)
[2021-04-18 09:58] LABS: CORTISOL AM 3.8 UG/DL (4.3-22.4)
[2021-04-18] MEDS: PATIROMER SORBITEX CALCIUM 8.4 GM POWDER PACKET (VELTASSA) PO SCH (13:47)
[2021-04-18] MEDS: rOPINIRole 0.25 MG TAB(REQUIP) PO SCH (21:27)
[2021-04-19 04:00] VITALS: BP 149/79
[2021-04-19] MEDS: HEPARIN SOD (PORCINE) 5000UNITS/ML 1ML VIAL/SYRINGE SC SCH ×2 (05:40→13:49)
[2021-04-19] MEDS: ALPRAZolam 0.5 MG TAB PO SCH (05:44)
[2021-04-19] MEDS: METHADONE 10 MG TAB (S0109) PO SCH ×2 (05:45→13:50)
[2021-04-19] MEDS: (RENVELA) SEVELAMER **CARBONate** 800 MG TAB PO SCH ×2 (05:45→13:49)
[2021-04-19] MEDS: **hydrALAZINE HCL** 25 MG TAB PO SCH (05:46)
[2021-04-19] MEDS: VITAMIN D 1,000 INTERNATIONAL UNITS TABLET PO SCH (05:46)
[2021-04-19] MEDS: LABETALOL 200 MG TAB PO SCH ×2 (05:46→13:49)
[2021-04-19] MEDS: ESCITALOPRAM OXALATE 10 MG TAB (LEXAPRO) PO SCH (05:47)
[2021-04-19] MEDS: SUCROFERRIC OXYHYDROXIDE 500MG CHEW TAB (VELPHORO) PO SCH ×2 (05:47→13:48)
[2021-04-19] MEDS: PANTOPRAZOLE 40MG TAB (PROTONIX) PO SCH (05:47)
[2021-04-19] MEDS: LOSARTAN 50MG TABLET PO SCH (05:47)
[2021-04-19] MEDS: DIVALPROEX 500 MG TAB PO SCH (05:48)
[2021-04-19] MEDS ORDERED: SODIUM CHLORIDE 0.9% 1000ML IV PRN (06:45)
[2021-04-19] MEDS ORDERED: LIDOCAINE 1% SDV 5ML VIAL SC PRN (06:45)
[2021-04-19] MEDS ORDERED: CORT10TA PO (07:30)
[2021-04-19] MEDS ORDERED: FLUD0.1T PO (07:30)
[2021-04-19] MEDS ORDERED: CORT5TAB2 PO (07:30)
[2021-04-19] MEDS ORDERED: BLOO-76 MC (07:31)
[2021-04-19] MEDS ORDERED: DEPA1TAB3 PO (07:32)
[2021-04-19] MEDS ORDERED: HYDROCORTISONE 10 MG TAB PO SCH (09:00)
[2021-04-19] MEDS ORDERED: FLUDROCORTISONE ACETATE 0.1 MG TAB PO SCH (09:00)
[2021-04-19] MEDS: PATIROMER SORBITEX CALCIUM 8.4 GM POWDER PACKET (VELTASSA) PO SCH (12:00)
[2021-04-19] MEDS ORDERED: HYDROCORTISONE 5MG TABLET PO SCH (12:00)
[2021-04-19 13:49] VITALS: BP 149/78
== END 2021-04-19 14:55 | disposition home or self-care (01) | DRG 100 ==
LOC: EDBD 06:48 → M ED 06:48 → M ED INP 12:56 → M PCU 22:15 → M MSPAV 04-18 20:06
PROVIDERS: ADMIT Internal Medicine; ATTEND General Practice
PROC: 5A1D70Z Performance of Urinary Filtration, Intermittent, Less than 6 Hours Per Day (ICD-10-PCS; principal; 2021-04-19)
DX: G40.409 Other generalized epilepsy and epileptic syndromes, not intractable, without status epilepticus (principal); N18.6 End stage renal disease; Z94.0 Kidney transplant status; I12.0 Hypertensive chronic kidney disease with stage 5 chronic kidney disease or end stage renal disease; E27.1 Primary adrenocortical insufficiency; G93.40 Encephalopathy, unspecified; E87.5 Hyperkalemia; Z99.2 Dependence on renal dialysis; M54.9 Dorsalgia, unspecified; G62.9 Polyneuropathy, unspecified; R11.15 Cyclical vomiting syndrome unrelated to migraine; F12.10 Cannabis abuse, uncomplicated; N39.8 Other specified disorders of urinary system; Z91.11 Patient's noncompliance with dietary regimen; E16.2 Hypoglycemia, unspecified; Z20.822 Contact with and (suspected) exposure to COVID-19; Z88.8 Allergy status to other drugs, medicaments and biological substances; Z79.899 Other long term (current) drug therapy; Z87.891 Personal history of nicotine dependence; D63.1 Anemia in chronic kidney disease; F41.9 Anxiety disorder, unspecified; F32.A Depression, unspecified; G89.29 Other chronic pain; Z91.14 Patient's other noncompliance with medication regimen; Z79.891 Long term (current) use of opiate analgesic

== ENCOUNTER → 2021-04-27 | Outpatient (CLI) | payer MEDICARE, MEDICAID ==
[~2021-04-27] MED LIST changes: +BLOO-76 MC; +CORT10TA PO; +CORT5TAB2 PO; +D-101000 PO; +DEPA1TAB3 PO; +FLUD0.1T PO; +LOKE5PAK PO; +ROPI0.253 PO
== END ==
LOC: M ADAMS 10:14
PROVIDERS: ATTEND Family Medicine
DX: M77.11 Lateral epicondylitis, right elbow (principal)

== ENCOUNTER 2021-06-19 07:57 | Inpatient (IN) | payer MEDICARE, MEDICAID ==
[~2021-06-19] VITALS: Ht 175.3 cm; Wt 88.5 kg
[2021-06-19] MEDS ORDERED: METHADONE 10MG TAB PO ONE (08:35)
[2021-06-19 09:02] LABS: BASO % 0.4 % (0.0-1.0); EOS # 0.3 10^3/uL (0.0-0.5); EOS % 2.7 % (0.0-3.0); HEMATOCRIT 33.2 % (42.0-52.0); HEMOGLOBIN 10.7 g/dl (13.5-17.5); LYMPH # 1.3 10^3/uL (1.5-5.0); LYMPH % 12.9 % (24.0-44.0); MEAN CORPUSCULAR HEMOGLOBIN 30.5 pg (27.0-33.0); MEAN CORPUSCULAR HGB CONC 32.2 g/dl (32.0-36.5); MEAN CORPUSCULAR VOLUME 94.6 fl (80.0-96.0); MONO # 0.5 10^3/uL (0.0-0.8); MONO % 5.4 % (2.0-8.0); NEUTROPHILS # 7.9 10^3/uL (1.5-8.5); NEUTROPHILS % 78.4 % (36.0-66.0); PLATELET COUNT, AUTOMATED 256 10^3/uL (150-450); RED BLOOD COUNT 3.51 10^6/uL (4.30-6.10); WHITE BLOOD COUNT 10.1 10^3/uL (4.0-10.0)
[2021-06-19 09:28] LABS: ALBUMIN 3.3 GM/DL (3.2-5.2); BILIRUBIN,DIRECT 0.2 MG/DL (0.0-0.2); BILIRUBIN,TOTAL 0.6 MG/DL (0.2-1.0); CALCIUM LEVEL 8.5 MG/DL (8.5-10.1); CREATININE FOR GFR 8.57 MG/DL (0.70-1.30); GLOMERULAR FILTRATION RATE 7.3 (>60); POTASSIUM SERUM 4.7 MEQ/L (3.5-5.1); TOTAL PROTEIN 7.1 GM/DL (6.4-8.2)
[2021-06-19] MEDS ORDERED: cefTRIAXone SOD 1 GM in D5W MINI-BAG PLUS 50 ML IV ONE (09:40)
[2021-06-19] MEDS ORDERED: ALPRAZolam 0.5 MG TAB PO ONE (10:30)
[2021-06-19 10:55] LABS: RSV AMPLIFICATION NEGATIVE (NEGATIVE)
[2021-06-19] MEDS ORDERED: METH-1177 PO (10:58)
[2021-06-19] MEDS ORDERED: HOME MED LIST COMPLETE! XX SCH (11:00)
[2021-06-19] MEDS ORDERED: HYDROCORTISONE 5MG TABLET PO SCH (12:00)
[2021-06-19] MEDS ORDERED: SODIUM CHLORIDE 0.9% 1000ML IV PRN (12:20)
[2021-06-19] MEDS ORDERED: LIDOCAINE 1% SDV 5ML VIAL SC PRN (12:20)
[2021-06-19] MEDS: SUCROFERRIC OXYHYDROXIDE 500MG CHEW TAB (VELPHORO) PO SCH ×2 (13:52→17:43)
[2021-06-19] MEDS: METHADONE 10MG TAB PO SCH ×2 (13:52→22:35)
[2021-06-19] MEDS: LABETALOL 200 MG TAB PO SCH ×2 (13:55→22:33)
[2021-06-19] MEDS: **hydrALAZINE HCL** 25 MG TAB PO SCH ×2 (17:07→22:34)
[2021-06-19 17:12] VITALS: BP 143/80
[2021-06-19] MEDS: (RENVELA) SEVELAMER **CARBONate** 800 MG TAB PO SCH ×2 (17:36→17:41)
[2021-06-19] MEDS: HYDROmorphone 4MG TABLET PO PRN ×2 (17:36→22:36)
[2021-06-19] MEDS ORDERED: ESCITALOPRAM OXALATE 10 MG TAB (LEXAPRO) PO SCH (21:00)
[2021-06-19] MEDS ORDERED: ACETAMINOPHEN TAB 650MG DOSE (2X325MG) PO PRN (21:25)
[2021-06-19 22:00] VITALS: BP 158/97
[2021-06-19] MEDS: ALPRAZolam 0.5 MG TAB PO SCH (22:34)
[2021-06-20] MEDS: SUCROFERRIC OXYHYDROXIDE 500MG CHEW TAB (VELPHORO) PO SCH ×2 (00:40→11:56)
[2021-06-20 06:00] VITALS: BP 173/94
[2021-06-20] MEDS: LABETALOL 200 MG TAB PO SCH ×2 (06:28→13:33)
[2021-06-20] MEDS: ALPRAZolam 0.5 MG TAB PO SCH (08:59)
[2021-06-20] MEDS ORDERED: HYDROCORTISONE 10 MG TAB PO SCH ×3 (09:00→12:00)
[2021-06-20] MEDS: METHADONE 10MG TAB PO SCH ×2 (09:00→13:31)
[2021-06-20] MEDS ORDERED: PANTOPRAZOLE 40MG TAB (PROTONIX) PO SCH (09:00)
[2021-06-20] MEDS: **hydrALAZINE HCL** 25 MG TAB PO SCH (09:01)
[2021-06-20] MEDS: (RENVELA) SEVELAMER **CARBONate** 800 MG TAB PO SCH ×2 (09:01→11:56)
[2021-06-20 09:51] LABS: HEMATOCRIT 36.1 % (42.0-52.0); HEMOGLOBIN 11.3 g/dl (13.5-17.5); MEAN CORPUSCULAR HEMOGLOBIN 29.5 pg (27.0-33.0); MEAN CORPUSCULAR HGB CONC 31.3 g/dl (32.0-36.5); MEAN CORPUSCULAR VOLUME 94.3 fl (80.0-96.0); PLATELET COUNT, AUTOMATED 246 10^3/uL (150-450); RED BLOOD COUNT 3.83 10^6/uL (4.30-6.10); WHITE BLOOD COUNT 7.3 10^3/uL (4.0-10.0)
[2021-06-20] MEDS ORDERED: cefTRIAXone SOD 1 GM in D5W MINI-BAG PLUS 50 ML IV SCH (10:00)
[2021-06-20 10:01] LABS: INR 1.03; PROTHROMBIN TIME 13.9 SECONDS (12.7-14.5)
[2021-06-20 10:02] LABS: PARTIAL THROMBOPLASTIN TIME 37.2 SECONDS (25.9-37.0)
[2021-06-20 10:12] LABS: CALCIUM LEVEL 9.2 MG/DL (8.5-10.1); CREATININE FOR GFR 6.53 MG/DL (0.70-1.30); GLOMERULAR FILTRATION RATE 10.1 (>60); POTASSIUM SERUM 4.9 MEQ/L (3.5-5.1)
[2021-06-20] MEDS ORDERED: CEFP200T PO (12:45)
[2021-06-20] MEDS ORDERED: HYDR-4468 PO (12:45)
[2021-06-20 13:33] VITALS: BP 169/74
[2021-06-20] MEDS ORDERED: METHADONE 10MG TAB PO SCH (17:00)
[2021-06-21] MEDS ORDERED: SODIUM CHLORIDE 0.9% 1000ML IV PRN (06:00)
[2021-06-21] MEDS ORDERED: LIDOCAINE 1% SDV 5ML VIAL SC PRN (06:00)
[2021-06-21] MEDS ORDERED: EMLA CREAM 5GM TUBE (LIDOCAINE/PRILOCAINE) TOP SCH (09:00)
== END 2021-06-20 15:00 | disposition home or self-care (01) | DRG 698 ==
LOC: M ED 07:57 → M ED INP 11:36 → ENRESERV 15:30 → M MSPAV 17:13
PROVIDERS: ADMIT Internal Medicine; ATTEND Internal Medicine
DX: T86.13 Kidney transplant infection (principal); N18.6 End stage renal disease; I12.0 Hypertensive chronic kidney disease with stage 5 chronic kidney disease or end stage renal disease; N12 Tubulo-interstitial nephritis, not specified as acute or chronic; E27.40 Unspecified adrenocortical insufficiency; Z99.2 Dependence on renal dialysis; G62.9 Polyneuropathy, unspecified; R11.15 Cyclical vomiting syndrome unrelated to migraine; M54.9 Dorsalgia, unspecified; R31.0 Gross hematuria; Z79.891 Long term (current) use of opiate analgesic; Z79.899 Other long term (current) drug therapy; Z88.8 Allergy status to other drugs, medicaments and biological substances; Z91.11 Patient's noncompliance with dietary regimen; D63.1 Anemia in chronic kidney disease; F41.9 Anxiety disorder, unspecified; F32.A Depression, unspecified; Z20.822 Contact with and (suspected) exposure to COVID-19

== ENCOUNTER 2021-07-12 13:44 | Emergency (ER) | payer MEDICARE, MEDICAID ==
[~2021-07-12] VITALS: Ht 182.9 cm; Wt 83.7 kg
[~2021-07-12 13:44] MED LIST changes: +CEFP200T PO; +HYDR-4468 PO
[2021-07-12 13:47] VITALS: BP 147/79
== END 2021-07-12 19:36 | disposition left against medical advice (07) ==
LOC: M ED 13:44
DX: Z53.29 Procedure and treatment not carried out because of patient's decision for other reasons (principal)

== ENCOUNTER → 2021-07-13 | Outpatient (CLI) | payer MEDICARE, MEDICAID ==
[~2021-07-13] MED LIST changes: +B-12100010 PO
== END ==
LOC: M RAD 16:41
PROVIDERS: ATTEND Family Medicine
DX: M79.89 Other specified soft tissue disorders (principal)

== ENCOUNTER 2021-07-15 08:57 | Emergency (ER) | payer MEDICARE, MEDICAID ==
[~2021-07-15] VITALS: Ht 182.9 cm; Wt 84.1 kg
[2021-07-15 08:57] VITALS: BP 137/73
[~2021-07-15 08:57] MED LIST changes: -B-12100010 PO
== END 2021-07-15 10:47 | disposition left against medical advice (07) ==
LOC: M ED 08:57
DX: Z53.29 Procedure and treatment not carried out because of patient's decision for other reasons (principal)

== ENCOUNTER 2021-07-17 11:27 | Inpatient (IN) | payer MEDICARE, MEDICAID ==
[~2021-07-17] VITALS: Ht 182.9 cm; Wt 84.0 kg
[2021-07-17] MEDS ORDERED: HYDROCORTISONE 5MG TABLET PO ONE (12:30)
[2021-07-17] MEDS ORDERED: HYDROmorphone 2 MG TAB PO ONE (12:35)
[2021-07-17] MEDS ORDERED: METHADONE 10MG TAB PO ONE (12:35)
[2021-07-17] MEDS ORDERED: **hydrALAZINE HCL** 25 MG TAB PO ONE (12:35)
[2021-07-17 12:47] LABS: BASO % 0.6 % (0.0-1.0); EOS # 0.1 10^3/uL (0.0-0.5); EOS % 1.4 % (0.0-3.0); HEMATOCRIT 33.8 % (42.0-52.0); HEMOGLOBIN 10.9 g/dl (13.5-17.5); LYMPH # 0.7 10^3/uL (1.5-5.0); LYMPH % 14.3 % (24.0-44.0); MEAN CORPUSCULAR HEMOGLOBIN 29.5 pg (27.0-33.0); MEAN CORPUSCULAR HGB CONC 32.2 g/dl (32.0-36.5); MEAN CORPUSCULAR VOLUME 91.4 fl (80.0-96.0); MONO # 0.4 10^3/uL (0.0-0.8); MONO % 7.3 % (2.0-8.0); NEUTROPHILS # 3.8 10^3/uL (1.5-8.5); NEUTROPHILS % 76.2 % (36.0-66.0); PLATELET COUNT, AUTOMATED 268 10^3/uL (150-450)
[2021-07-17 12:59] LABS: INR 0.95; PROTHROMBIN TIME 13.1 SECONDS (12.7-14.5)
[2021-07-17 13:00] LABS: PARTIAL THROMBOPLASTIN TIME 39.8 SECONDS (25.9-37.0)
[2021-07-17 13:15] LABS: ALBUMIN 3.4 GM/DL (3.2-5.2); BILIRUBIN,DIRECT 0.2 MG/DL (0.0-0.2); BILIRUBIN,TOTAL 0.7 MG/DL (0.2-1.0); CREATININE FOR GFR 4.05 MG/DL (0.70-1.30); GLOMERULAR FILTRATION RATE 17.5 (>60); POTASSIUM SERUM 4.3 MEQ/L (3.5-5.1); TOTAL PROTEIN 8.1 GM/DL (6.4-8.2)
[2021-07-17 14:53] LABS: RSV AMPLIFICATION NEGATIVE (NEGATIVE)
[2021-07-17] MEDS: ACETAMINOPHEN TAB 650MG DOSE (2X325MG) PO PRN (15:33)
[2021-07-17] MEDS ORDERED: B-12100010 PO (15:37)
[2021-07-17] MEDS ORDERED: ROPI0.253 PO (15:43)
[2021-07-17] MEDS ORDERED: HOME MED LIST COMPLETE! XX SCH (15:45)
[2021-07-17] MEDS ORDERED: HYDROmorphone 4MG TABLET PO PRN (16:05)
[2021-07-17] MEDS: METHADONE 10MG TAB PO SCH ×2 (17:47→21:07)
[2021-07-17 19:56] VITALS: BP 184/96
[2021-07-17] MEDS: ALPRAZolam 0.5 MG TAB PO SCH (21:06)
[2021-07-17] MEDS: ESCITALOPRAM OXALATE 10 MG TAB (LEXAPRO) PO SCH (21:07)
[2021-07-17] MEDS: rOPINIRole 0.25 MG TAB(REQUIP) PO SCH (21:07)
[2021-07-17] MEDS: **hydrALAZINE HCL** 25 MG TAB PO SCH (21:07)
[2021-07-17] MEDS: HEPARIN SOD (PORCINE) 5000UNITS/ML 1ML VIAL/SYRINGE SC SCH (21:08)
[2021-07-17] MEDS: LABETALOL 200 MG TAB PO SCH (22:45)
[2021-07-18] MEDS: HEPARIN SOD (PORCINE) 5000UNITS/ML 1ML VIAL/SYRINGE SC SCH ×3 (06:08→21:11)
[2021-07-18] MEDS: LABETALOL 200 MG TAB PO SCH ×3 (06:09→21:13)
[2021-07-18 06:31] VITALS: BP 153/85
[2021-07-18] MEDS: METHADONE 10MG TAB PO SCH ×4 (08:31→21:11)
[2021-07-18] MEDS: HYDROCORTISONE 10 MG TAB PO SCH (08:32)
[2021-07-18] MEDS: CYANOCOBALAMIN 500 MCG TAB PO SCH (08:32)
[2021-07-18] MEDS: ALPRAZolam 0.5 MG TAB PO SCH ×2 (08:33→21:12)
[2021-07-18] MEDS: **hydrALAZINE HCL** 25 MG TAB PO SCH ×3 (08:33→21:12)
[2021-07-18] MEDS: PANTOPRAZOLE 40MG TAB (PROTONIX) PO SCH (08:33)
[2021-07-18 08:49] LABS: BASO # 0.1 10^3/uL (0.0-0.2); EOS # 0.2 10^3/uL (0.0-0.5); EOS % 3.1 % (0.0-3.0); HEMATOCRIT 35.4 % (42.0-52.0); HEMOGLOBIN 10.9 g/dl (13.5-17.5); LYMPH % 21.2 % (24.0-44.0); MEAN CORPUSCULAR HEMOGLOBIN 28.8 pg (27.0-33.0); MEAN CORPUSCULAR HGB CONC 30.8 g/dl (32.0-36.5); MEAN CORPUSCULAR VOLUME 93.4 fl (80.0-96.0); MONO # 0.5 10^3/uL (0.0-0.8); MONO % 10.6 % (2.0-8.0); NEUTROPHILS # 3.1 10^3/uL (1.5-8.5); NEUTROPHILS % 63.9 % (36.0-66.0); PLATELET COUNT, AUTOMATED 254 10^3/uL (150-450); RED BLOOD COUNT 3.79 10^6/uL (4.30-6.10); WHITE BLOOD COUNT 4.8 10^3/uL (4.0-10.0)
[2021-07-18 09:18] LABS: ALBUMIN 3.1 GM/DL (3.2-5.2); BILIRUBIN,DIRECT 0.2 MG/DL (0.0-0.2); BILIRUBIN,TOTAL 0.6 MG/DL (0.2-1.0); CALCIUM LEVEL 9.5 MG/DL (8.5-10.1); CREATININE FOR GFR 6.11 MG/DL (0.70-1.30); GLOMERULAR FILTRATION RATE 10.9 (>60); MAGNESIUM LEVEL 2.2 MG/DL (1.8-2.4); POTASSIUM SERUM 5.1 MEQ/L (3.5-5.1); TOTAL PROTEIN 7.4 GM/DL (6.4-8.2)
[2021-07-18] MEDS: HYDROCORTISONE 5MG TABLET PO SCH (12:09)
[2021-07-18 14:00] VITALS: BP 144/79
[2021-07-18] MEDS ORDERED: LORazepam 2 MG/ML VIAL IV ONE (17:45)
[2021-07-18] MEDS: ESCITALOPRAM OXALATE 10 MG TAB (LEXAPRO) PO SCH (21:10)
[2021-07-18] MEDS: ACETAMINOPHEN TAB 650MG DOSE (2X325MG) PO PRN (21:10)
[2021-07-18] MEDS: rOPINIRole 0.25 MG TAB(REQUIP) PO SCH (21:12)
[2021-07-18 22:00] VITALS: BP 144/78
[2021-07-19] MEDS: HEPARIN SOD (PORCINE) 5000UNITS/ML 1ML VIAL/SYRINGE SC SCH (05:43)
[2021-07-19] MEDS: LABETALOL 200 MG TAB PO SCH ×2 (05:51→15:17)
[2021-07-19 06:00] VITALS: BP 147/82
[2021-07-19] MEDS ORDERED: SODIUM CHLORIDE 0.9% 1000ML IV PRN (06:00)
[2021-07-19] MEDS ORDERED: LIDOCAINE 1% SDV 5ML VIAL SC PRN (06:00)
[2021-07-19 06:10] LABS: BASO # 0.1 10^3/uL (0.0-0.2); BASO % 1.2 % (0.0-1.0); EOS # 0.2 10^3/uL (0.0-0.5); EOS % 3.4 % (0.0-3.0); HEMATOCRIT 32.6 % (42.0-52.0); HEMOGLOBIN 9.9 g/dl (13.5-17.5); LYMPH # 1.6 10^3/uL (1.5-5.0); LYMPH % 24.8 % (24.0-44.0); MEAN CORPUSCULAR HEMOGLOBIN 28.4 pg (27.0-33.0); MEAN CORPUSCULAR HGB CONC 30.4 g/dl (32.0-36.5); MEAN CORPUSCULAR VOLUME 93.7 fl (80.0-96.0); MONO # 0.5 10^3/uL (0.0-0.8); MONO % 8.4 % (2.0-8.0); PLATELET COUNT, AUTOMATED 256 10^3/uL (150-450); RED BLOOD COUNT 3.48 10^6/uL (4.30-6.10); WHITE BLOOD COUNT 6.4 10^3/uL (4.0-10.0)
[2021-07-19 07:24] LABS: ALBUMIN 3.4 GM/DL (3.2-5.2); BILIRUBIN,TOTAL 0.6 MG/DL (0.2-1.0); CALCIUM LEVEL 9.2 MG/DL (8.5-10.1); CREATININE FOR GFR 7.67 MG/DL (0.70-1.30); GLOMERULAR FILTRATION RATE 8.4 (>60); MAGNESIUM LEVEL 2.2 MG/DL (1.8-2.4); POTASSIUM SERUM 4.9 MEQ/L (3.5-5.1); TOTAL PROTEIN 7.6 GM/DL (6.4-8.2)
[2021-07-19] MEDS: **hydrALAZINE HCL** 25 MG TAB PO SCH ×2 (08:38→15:17)
[2021-07-19] MEDS: CYANOCOBALAMIN 500 MCG TAB PO SCH (08:38)
[2021-07-19] MEDS: PANTOPRAZOLE 40MG TAB (PROTONIX) PO SCH (08:38)
[2021-07-19] MEDS: HYDROCORTISONE 10 MG TAB PO SCH (08:38)
[2021-07-19] MEDS: ALPRAZolam 0.5 MG TAB PO SCH (08:38)
[2021-07-19] MEDS: METHADONE 10MG TAB PO SCH ×3 (08:39→16:23)
[2021-07-19] MEDS: HYDROCORTISONE 5MG TABLET PO SCH (11:01)
[2021-07-19 15:17] VITALS: BP 149/79
[2021-07-19 16:20] VITALS: BP 133/71
== END 2021-07-19 17:30 | disposition home or self-care (01) | DRG 102 ==
LOC: M ED 11:27 → M ED INP 15:02 → ENRESERV 16:13 → M MS5PR 20:04
PROVIDERS: ADMIT Family Medicine; ATTEND Internal Medicine
DX: F07.81 Postconcussional syndrome (principal); N18.6 End stage renal disease; R18.8 Other ascites; I12.0 Hypertensive chronic kidney disease with stage 5 chronic kidney disease or end stage renal disease; E27.40 Unspecified adrenocortical insufficiency; Z94.0 Kidney transplant status; E87.1 Hypo-osmolality and hyponatremia; K76.6 Portal hypertension; K08.9 Disorder of teeth and supporting structures, unspecified; M54.50 Low back pain, unspecified; E53.8 Deficiency of other specified B group vitamins; R11.15 Cyclical vomiting syndrome unrelated to migraine; F41.8 Other specified anxiety disorders; Z90.5 Acquired absence of kidney; Z95.5 Presence of coronary angioplasty implant and graft; Z87.891 Personal history of nicotine dependence; Z99.2 Dependence on renal dialysis; S80.12XD Contusion of left lower leg, subsequent encounter; Z20.822 Contact with and (suspected) exposure to COVID-19; Z79.899 Other long term (current) drug therapy; Z88.8 Allergy status to other drugs, medicaments and biological substances; G25.81 Restless legs syndrome; G89.4 Chronic pain syndrome; K21.9 Gastro-esophageal reflux disease without esophagitis; Z79.891 Long term (current) use of opiate analgesic

== ENCOUNTER 2021-09-18 08:26 | Inpatient (IN) | payer MEDICARE, MEDICAID ==
[2021-09-18] VITALS (35 sets, daily range): BP systolic 147–204; BP diastolic 60–96
[~2021-09-18] VITALS: Ht 182.9 cm; Wt 75.5 kg
[~2021-09-18 08:26] MED LIST changes: +B-12100010 PO
[2021-09-18] MEDS ORDERED: ISOVUE-370 76% 100ML VIAL As Ordered ONE (08:42)
[2021-09-18 09:06] LABS: BASO % 0.2 % (0.0-1.0); HEMATOCRIT 39.5 % (42.0-52.0); HEMOGLOBIN 12.6 g/dl (13.5-17.5); LYMPH # 0.4 10^3/uL (1.5-5.0); LYMPH % 5.5 % (24.0-44.0); MEAN CORPUSCULAR HEMOGLOBIN 28.1 pg (27.0-33.0); MEAN CORPUSCULAR HGB CONC 31.9 g/dl (32.0-36.5); MEAN CORPUSCULAR VOLUME 88.2 fl (80.0-96.0); MONO # 0.4 10^3/uL (0.0-0.8); MONO % 5.2 % (2.0-8.0); NEUTROPHILS # 7.1 10^3/uL (1.5-8.5); NEUTROPHILS % 88.7 % (36.0-66.0); PLATELET COUNT, AUTOMATED 230 10^3/uL (150-450); RED BLOOD COUNT 4.48 10^6/uL (4.30-6.10); WHITE BLOOD COUNT 8.1 10^3/uL (4.0-10.0)
[2021-09-18 09:29] LABS: ACETAMINOPHEN LEVEL < 2.0 UG/ML (10.0-30.0); ALBUMIN 3.3 GM/DL (3.2-5.2); ALT/SGPT 13 U/L (12-78); BILIRUBIN,DIRECT 0.3 MG/DL (0.0-0.2); BILIRUBIN,TOTAL 0.6 MG/DL (0.2-1.0); BLOOD UREA NITROGEN 53 MG/DL (7-18); CALCIUM LEVEL 8.1 MG/DL (8.5-10.1); CARBON DIOXIDE LEVEL 20 MEQ/L (21-32); CHLORIDE LEVEL 86 MEQ/L (98-107); CREATININE FOR GFR 8.57 MG/DL (0.70-1.30); ETHYL ALCOHOL (ETHANOL) < 0.003 % (0.000-0.010); GLOMERULAR FILTRATION RATE 7.3 (>60); GLUCOSE, FASTING 130 MG/DL (70-100); POTASSIUM SERUM 5.6 MEQ/L (3.5-5.1); SALICYLATE LEVEL 3.3 MG/DL (5.0-30.0); SODIUM LEVEL 121 MEQ/L (136-145)
[2021-09-18] MEDS ORDERED: [UNRECOGNIZED DRUG - CODE] IJ (09:33)
[2021-09-18] MEDS ORDERED: PRED50TA PO (09:33)
[2021-09-18] MEDS ORDERED: RENV2TAB PO (09:33)
[2021-09-18] MEDS ORDERED: SILD100T PO (09:33)
[2021-09-18] MEDS ORDERED: VELP5CHW PO (09:33)
[2021-09-18 10:06] LABS: OSMOLALITY SERUM 269 MOSM/KG (275-295)
[2021-09-18] MEDS ORDERED: D5W/0.9% SODIUM CHLORIDE 1,000 ML IV SCH (10:20)
[2021-09-18] MEDS ORDERED: levETIRAcetam INJection 500 MG in D5W MINI-BAG PLUS 100 ML IV ONE (10:20)
[2021-09-18] MEDS ORDERED: cefTRIAXone SOD 1 GM in D5W MINI-BAG PLUS 50 ML IV ONE (11:00)
[2021-09-18 11:14] LABS: ABG BASE EXCESS -6.8 (-2.0-2.0); ABG HCO3 19.5 MEQ/L (22.0-26.0); ABG O2 SATURATION 96.6 % (95.0-99.0); ABG PARTIAL PRESSURE CO2 41.7 mmHg (35.0-45.0); ABG PARTIAL PRESSURE O2 94.9 mmHg (75.0-100.0); ABG STANDARD HCO3 18.9 MEQ/L (22.0-26.0); ABG TOTAL CO2 20.7 MEQ/L (22.0-29.0); ABG pH (ARTERIAL) 7.287 UNITS (7.350-7.450)
[2021-09-18 11:38] LABS: PHOSPHORUS LEVEL 5.7 MG/DL (2.5-4.9)
[2021-09-18] MEDS ORDERED: NS 1,000 ML IV SCH (12:00)
[2021-09-18] MEDS ORDERED: LEXA1TAB PO (12:05)
[2021-09-18] MEDS ORDERED: METH-1177 PO ×2 (12:05)
[2021-09-18] MEDS ORDERED: ALPR1TAB3 PO (12:05)
[2021-09-18] MEDS ORDERED: FLUD0.1T PO (12:05)
[2021-09-18] MEDS ORDERED: HYDR-3910 PO (12:05)
[2021-09-18] MEDS ORDERED: LOKE5PAK PO (12:05)
[2021-09-18] MEDS ORDERED: DILA8TAB5 PO (12:05)
[2021-09-18] MEDS ORDERED: HYDR-4467 PO (12:05)
[2021-09-18 12:07] LABS: RSV AMPLIFICATION NEGATIVE (NEGATIVE)
[2021-09-18] MEDS ORDERED: SODIUM CHLORIDE 0.9% 1000ML IV PRN (12:25)
[2021-09-18] MEDS ORDERED: LIDOCAINE 1% SDV 5ML VIAL SC PRN (12:25)
[2021-09-18] MEDS ORDERED: MED REC COMMENT (13:32)
[2021-09-18] MEDS ORDERED: VENO20IN5 IV (13:48)
[2021-09-18] MEDS ORDERED: CINA30TA4 PO (13:48)
[2021-09-18] MEDS ORDERED: HOME MED LIST COMPLETE! XX SCH (13:50)
[2021-09-18 15:04] LABS: ALBUMIN 3.2 GM/DL (3.2-5.2); BILIRUBIN,TOTAL 0.6 MG/DL (0.2-1.0); CALCIUM LEVEL 7.9 MG/DL (8.5-10.1); CREATININE FOR GFR 8.63 MG/DL (0.70-1.30); GLOMERULAR FILTRATION RATE 7.3 (>60); POTASSIUM SERUM 5.7 MEQ/L (3.5-5.1); TOTAL PROTEIN 6.6 GM/DL (6.4-8.2)
[2021-09-18] MEDS: hydrALAZINE 20MG/ML 1ML VIAL (J0360 PER 20MG) IV SCH (16:39)
[2021-09-18] MEDS: PANTOPRAZOLE 40MG VIAL IV SCH (16:39)
[2021-09-18] MEDS: METOPROLOL 5 MG/5 ML VIAL IV SCH ×2 (17:20→23:23)
[2021-09-18] MEDS ORDERED: niCARdipine IV 40 MG in IV 1 EA IV SCH (18:05)
[2021-09-18] MEDS: niCARdipine IV 40 MG in IV 1 EA IV SCH (18:16)
[2021-09-18] MEDS: HEPARIN SOD (PORCINE) 5000UNITS/ML 1ML VIAL/SYRINGE SQ SCH (20:11)
[2021-09-18 22:23] LABS: CALCIUM LEVEL 8.3 MG/DL (8.5-10.1); CREATININE FOR GFR 4.95 MG/DL (0.70-1.30); GLOMERULAR FILTRATION RATE 13.8 (>60); POTASSIUM SERUM 5.2 MEQ/L (3.5-5.1)
[2021-09-19] VITALS (95 sets, daily range): BP systolic 134–179; BP diastolic 55–92
[2021-09-19] MEDS ORDERED: GLUCOSE 4GM CHEW TABLET PO PRN (00:15)
[2021-09-19] MEDS ORDERED: DEXTROSE 50% 50 ML SYRINGE IV PRN (00:15)
[2021-09-19] MEDS ORDERED: GLUCAGON INJ 1MG VIAL SC PRN (00:15)
[2021-09-19] MEDS: D5W/0.45% SODIUM CHLORIDE 1,000 ML IV SCH ×2 (00:23→10:42)
[2021-09-19] MEDS: HYDROCORTISONE 100 MG/2 ML VIAL (J1720 PER 1) IV SCH ×4 (00:27→23:45)
[2021-09-19] MEDS: niCARdipine IV 40 MG in IV 1 EA IV SCH ×6 (00:30→21:45)
[2021-09-19] MEDS: hydrALAZINE 20MG/ML 1ML VIAL (J0360 PER 20MG) IV SCH ×3 (00:53→16:19)
[2021-09-19 05:39] LABS: HEMATOCRIT 37.9 % (42.0-52.0); HEMOGLOBIN 12.4 g/dl (13.5-17.5); MEAN CORPUSCULAR HEMOGLOBIN 28.8 pg (27.0-33.0); MEAN CORPUSCULAR HGB CONC 32.7 g/dl (32.0-36.5); MEAN CORPUSCULAR VOLUME 87.9 fl (80.0-96.0); PLATELET COUNT, AUTOMATED 206 10^3/uL (150-450); RED BLOOD COUNT 4.31 10^6/uL (4.30-6.10); WHITE BLOOD COUNT 5.1 10^3/uL (4.0-10.0)
[2021-09-19] MEDS: METOPROLOL 5 MG/5 ML VIAL IV SCH ×4 (05:48→23:45)
[2021-09-19 06:03] LABS: CALCIUM LEVEL 8.3 MG/DL (8.5-10.1); CREATININE FOR GFR 5.73 MG/DL (0.70-1.30); GLOMERULAR FILTRATION RATE 11.7 (>60); POTASSIUM SERUM 5.8 MEQ/L (3.5-5.1)
[2021-09-19 07:49] LABS: PHOSPHORUS LEVEL 4.8 MG/DL (2.5-4.9)
[2021-09-19] MEDS: PANTOPRAZOLE 40MG VIAL IV SCH (08:38)
[2021-09-19] MEDS: HEPARIN SOD (PORCINE) 5000UNITS/ML 1ML VIAL/SYRINGE SQ SCH ×2 (08:40→20:04)
[2021-09-19] MEDS ORDERED: ENOXAPARIN 40MG/0.4ML SYRINGE (J1650 PER 10MG) SC SCH (09:00)
[2021-09-19] MEDS ORDERED: NS 1,000 ML IV SCH (10:40)
[2021-09-19] MEDS ORDERED: SODIUM CHLORIDE 0.9% 1000ML IV PRN (11:30)
[2021-09-19] MEDS ORDERED: LIDOCAINE 1% SDV 5ML VIAL SC PRN (11:30)
[2021-09-19] MEDS: cefTRIAXone SOD 1 GM in D5W MINI-BAG PLUS 50 ML IV SCH (12:51)
[2021-09-19] MEDS ORDERED: MIDAZOLAM INJ 2MG/2ML VIAL (J2250 PER 1MG) IV STA (22:11)
[2021-09-19] MEDS ORDERED: OLANZapine INTRAMUSCULAR 10MG VIAL IM ONE (22:15)
[2021-09-20] VITALS (92 sets, daily range): BP systolic 130–175; BP diastolic 55–86
[2021-09-20] MEDS: niCARdipine IV 40 MG in IV 1 EA IV SCH ×7 (00:39→21:48)
[2021-09-20] MEDS: hydrALAZINE 20MG/ML 1ML VIAL (J0360 PER 20MG) IV SCH ×3 (00:40→16:27)
[2021-09-20] MEDS: METOPROLOL 5 MG/5 ML VIAL IV SCH ×3 (05:39→17:35)
[2021-09-20 05:45] LABS: BASO % 0.4 % (0.0-1.0); HEMATOCRIT 34.7 % (42.0-52.0); HEMOGLOBIN 11.2 g/dl (13.5-17.5); LYMPH # 0.6 10^3/uL (1.5-5.0); LYMPH % 10.3 % (24.0-44.0); MEAN CORPUSCULAR HEMOGLOBIN 29.2 pg (27.0-33.0); MEAN CORPUSCULAR HGB CONC 32.3 g/dl (32.0-36.5); MEAN CORPUSCULAR VOLUME 90.6 fl (80.0-96.0); MONO # 0.5 10^3/uL (0.0-0.8); MONO % 8.5 % (2.0-8.0); NEUTROPHILS # 4.4 10^3/uL (1.5-8.5); NEUTROPHILS % 80.4 % (36.0-66.0); PLATELET COUNT, AUTOMATED 195 10^3/uL (150-450); RED BLOOD COUNT 3.83 10^6/uL (4.30-6.10); WHITE BLOOD COUNT 5.4 10^3/uL (4.0-10.0)
[2021-09-20 06:19] LABS: ALBUMIN 2.7 GM/DL (3.2-5.2); BILIRUBIN,TOTAL 0.4 MG/DL (0.2-1.0); CALCIUM LEVEL 7.6 MG/DL (8.5-10.1); CREATININE FOR GFR 3.81 MG/DL (0.70-1.30); GLOMERULAR FILTRATION RATE 18.7 (>60); MAGNESIUM LEVEL 1.8 MG/DL (1.8-2.4); POTASSIUM SERUM 4.4 MEQ/L (3.5-5.1); TOTAL PROTEIN 6.1 GM/DL (6.4-8.2)
[2021-09-20 06:20] LABS: PHOSPHORUS LEVEL 3.7 MG/DL (2.5-4.9)
[2021-09-20] MEDS: D5W/0.45% SODIUM CHLORIDE 1,000 ML IV SCH (06:57)
[2021-09-20] MEDS ORDERED: MAG SULF 1GM/100ML (MAG RUN) 1 GM in IV 1 EA IV ONE (08:00)
[2021-09-20] MEDS: HEPARIN SOD (PORCINE) 5000UNITS/ML 1ML VIAL/SYRINGE SQ SCH ×2 (09:26→20:46)
[2021-09-20] MEDS: PANTOPRAZOLE 40MG VIAL IV SCH (09:27)
[2021-09-20] MEDS: HYDROCORTISONE 100 MG/2 ML VIAL (J1720 PER 1) IV SCH ×2 (09:29→16:27)
[2021-09-20] MEDS ORDERED: HALOPERIDOL 5MG/ML VIAL (J1630 PER 1) IV ONE ×2 (09:45→09:50)
[2021-09-20] MEDS ORDERED: HALOPERIDOL 5MG/ML VIAL (J1630 PER 1) As Ordered ONE (09:49)
[2021-09-20] MEDS ORDERED: MIDAZOLAM INJ 2MG/2ML VIAL (J2250 PER 1MG) IV STA (09:51)
[2021-09-20] MEDS ORDERED: MIDAZOLAM INJ 2MG/2ML VIAL (J2250 PER 1MG) As Ordered ONE (09:53)
[2021-09-20] MEDS ORDERED: MIDAZOLAM INJ 2MG/2ML VIAL (J2250 PER 1MG) IV ONE (09:55)
[2021-09-20] MEDS ORDERED: ENOXAPARIN 100MG/1ML SYRINGE (J1650 PER 10MG) SC SCH (10:50)
[2021-09-20] MEDS: dexmedeTOMidine 200 MCG in IV 1 EA IV SCH ×2 (10:54→17:36)
[2021-09-20] MEDS: OLANZapine INTRAMUSCULAR 10MG VIAL IM ONE ×2 (10:55→15:39)
[2021-09-20] MEDS ORDERED: hydrALAZINE 20MG/ML 1ML VIAL (J0360 PER 20MG) IV PRN (13:10)
[2021-09-20] MEDS: cefTRIAXone SOD 1 GM in D5W MINI-BAG PLUS 50 ML IV SCH (13:11)
[2021-09-20] MEDS: MIDAZOLAM INJ 2MG/2ML VIAL (J2250 PER 1MG) IV PRN ×2 (15:39→23:59)
[2021-09-21] VITALS (94 sets, daily range): BP systolic 128–187; BP diastolic 55–85
[2021-09-21] MEDS: METOPROLOL 5 MG/5 ML VIAL IV SCH ×2 (00:05→05:42)
[2021-09-21] MEDS: HYDROCORTISONE 100 MG/2 ML VIAL (J1720 PER 1) IV SCH ×4 (00:06→23:12)
[2021-09-21] MEDS: hydrALAZINE 20MG/ML 1ML VIAL (J0360 PER 20MG) IV SCH ×4 (00:44→17:45)
[2021-09-21] MEDS: niCARdipine IV 40 MG in IV 1 EA IV SCH ×6 (01:54→23:18)
[2021-09-21] MEDS: dexmedeTOMidine 200 MCG in IV 1 EA IV SCH ×11 (03:52→23:12)
[2021-09-21 05:44] LABS: HEMATOCRIT 38.2 % (42.0-52.0); HEMOGLOBIN 12.5 g/dl (13.5-17.5); MEAN CORPUSCULAR HGB CONC 32.7 g/dl (32.0-36.5); MEAN CORPUSCULAR VOLUME 88.6 fl (80.0-96.0); PLATELET COUNT, AUTOMATED 217 10^3/uL (150-450); RED BLOOD COUNT 4.31 10^6/uL (4.30-6.10); WHITE BLOOD COUNT 8.9 10^3/uL (4.0-10.0)
[2021-09-21 06:14] LABS: ALBUMIN 3.2 GM/DL (3.2-5.2); BILIRUBIN,TOTAL 0.7 MG/DL (0.2-1.0); CALCIUM LEVEL 8.7 MG/DL (8.5-10.1); CREATININE FOR GFR 6.42 MG/DL (0.70-1.30); GLOMERULAR FILTRATION RATE 10.3 (>60); MAGNESIUM LEVEL 2.2 MG/DL (1.8-2.4); PHOSPHORUS LEVEL 4.3 MG/DL (2.5-4.9); POTASSIUM SERUM 4.9 MEQ/L (3.5-5.1); TOTAL PROTEIN 7.2 GM/DL (6.4-8.2)
[2021-09-21] MEDS ORDERED: SODIUM CHLORIDE 0.9% 1000ML IV PRN (06:40)
[2021-09-21] MEDS ORDERED: LIDOCAINE 1% SDV 5ML VIAL SC PRN (06:40)
[2021-09-21] MEDS: D5W/0.45% SODIUM CHLORIDE 1,000 ML IV SCH (07:14)
[2021-09-21] MEDS: MIDAZOLAM INJ 2MG/2ML VIAL (J2250 PER 1MG) IV PRN ×2 (07:53→18:41)
[2021-09-21] MEDS: PANTOPRAZOLE 40MG VIAL IV SCH (08:11)
[2021-09-21] MEDS: HEPARIN SOD (PORCINE) 5000UNITS/ML 1ML VIAL/SYRINGE SQ SCH ×2 (08:13→21:36)
[2021-09-21] MEDS ORDERED: cloNIDine HCL 0.1 MG/24 HR PATCH TOP SCH (09:00)
[2021-09-21] MEDS: cefTRIAXone SOD 1 GM in D5W MINI-BAG PLUS 50 ML IV SCH (11:11)
[2021-09-22] VITALS (84 sets, daily range): BP systolic 127–183; BP diastolic 57–91
[2021-09-22] MEDS: dexmedeTOMidine 200 MCG in IV 1 EA IV SCH ×12 (00:44→18:59)
[2021-09-22] MEDS: MIDAZOLAM INJ 2MG/2ML VIAL (J2250 PER 1MG) IV PRN (00:44)
[2021-09-22] MEDS: hydrALAZINE 20MG/ML 1ML VIAL (J0360 PER 20MG) IV SCH ×3 (01:44→17:45)
[2021-09-22] MEDS: niCARdipine IV 40 MG in IV 1 EA IV SCH ×5 (03:44→23:31)
[2021-09-22] MEDS: HYDROCORTISONE 100 MG/2 ML VIAL (J1720 PER 1) IV SCH ×2 (07:47→15:52)
[2021-09-22 07:50] LABS: HEMATOCRIT 37.2 % (42.0-52.0); HEMOGLOBIN 11.8 g/dl (13.5-17.5); MEAN CORPUSCULAR HEMOGLOBIN 28.4 pg (27.0-33.0); MEAN CORPUSCULAR HGB CONC 31.7 g/dl (32.0-36.5); MEAN CORPUSCULAR VOLUME 89.6 fl (80.0-96.0); PLATELET COUNT, AUTOMATED 197 10^3/uL (150-450); RED BLOOD COUNT 4.15 10^6/uL (4.30-6.10); WHITE BLOOD COUNT 6.4 10^3/uL (4.0-10.0)
[2021-09-22] MEDS ORDERED: cloNIDine HCL 0.2 MG/24 HR PATCH TOP SCH (09:00)
[2021-09-22 09:37] LABS: BILIRUBIN,TOTAL 0.7 MG/DL (0.2-1.0); CALCIUM LEVEL 8.7 MG/DL (8.5-10.1); CREATININE FOR GFR 5.85 MG/DL (0.70-1.30); GLOMERULAR FILTRATION RATE 11.4 (>60); MAGNESIUM LEVEL 2.1 MG/DL (1.8-2.4); PHOSPHORUS LEVEL 4.6 MG/DL (2.5-4.9); POTASSIUM SERUM 4.6 MEQ/L (3.5-5.1); TOTAL PROTEIN 6.7 GM/DL (6.4-8.2)
[2021-09-22] MEDS ORDERED: LIDOCAINE 1% MDV 20ML VIAL As Ordered ONE (09:49)
[2021-09-22] MEDS ORDERED: SODIUM CHLORIDE 0.9% INJ 10 ML SYR IV PRN (11:00)
[2021-09-22] MEDS: HEPARIN SOD (PORCINE) 5000UNITS/ML 1ML VIAL/SYRINGE SQ SCH ×2 (11:03→21:11)
[2021-09-22] MEDS: PANTOPRAZOLE 40MG VIAL IV SCH (11:04)
[2021-09-22] MEDS: SODIUM CHLORIDE 0.9% INJ 10 ML SYR IV SCH (17:29)
[2021-09-22] MEDS ORDERED: MIDAZOLAM INJ 2MG/2ML VIAL (J2250 PER 1MG) IV ONE (19:30)
[2021-09-22] MEDS: cloNIDine HCL 0.2 MG/24 HR PATCH TOP SCH (21:15)
[2021-09-23] VITALS (34 sets, daily range): BP systolic 128–182; BP diastolic 60–91
[2021-09-23] MEDS: hydrALAZINE 20MG/ML 1ML VIAL (J0360 PER 20MG) IV SCH ×5 (00:02→20:10)
[2021-09-23] MEDS: HYDROCORTISONE 100 MG/2 ML VIAL (J1720 PER 1) IV SCH ×3 (00:02→20:11)
[2021-09-23] MEDS: niCARdipine IV 40 MG in IV 1 EA IV SCH ×7 (02:42→22:29)
[2021-09-23] MEDS: SODIUM CHLORIDE 0.9% INJ 10 ML SYR IV SCH ×2 (05:20→18:00)
[2021-09-23] MEDS ORDERED: SODIUM CHLORIDE 0.9% 1000ML IV PRN (06:00)
[2021-09-23 06:27] LABS: BASO % 0.3 % (0.0-1.0); HEMATOCRIT 36.4 % (42.0-52.0); HEMOGLOBIN 12.1 g/dl (13.5-17.5); LYMPH % 12.4 % (24.0-44.0); MEAN CORPUSCULAR HEMOGLOBIN 29.2 pg (27.0-33.0); MEAN CORPUSCULAR HGB CONC 33.2 g/dl (32.0-36.5); MEAN CORPUSCULAR VOLUME 87.7 fl (80.0-96.0); MONO # 0.6 10^3/uL (0.0-0.8); MONO % 7.1 % (2.0-8.0); NEUTROPHILS # 6.2 10^3/uL (1.5-8.5); NEUTROPHILS % 79.8 % (36.0-66.0); PLATELET COUNT, AUTOMATED 197 10^3/uL (150-450); RED BLOOD COUNT 4.15 10^6/uL (4.30-6.10); WHITE BLOOD COUNT 7.8 10^3/uL (4.0-10.0)
[2021-09-23 07:05] LABS: ALBUMIN 3.5 GM/DL (3.2-5.2); CALCIUM LEVEL 9.2 MG/DL (8.5-10.1); CREATININE FOR GFR 7.62 MG/DL (0.70-1.30); GLOMERULAR FILTRATION RATE 8.4 (>60); MAGNESIUM LEVEL 2.2 MG/DL (1.8-2.4); PHOSPHORUS LEVEL 4.1 MG/DL (2.5-4.9); POTASSIUM SERUM 4.5 MEQ/L (3.5-5.1); TOTAL PROTEIN 7.5 GM/DL (6.4-8.2)
[2021-09-23] MEDS: PANTOPRAZOLE 40MG VIAL IV SCH (08:23)
[2021-09-23] MEDS: HEPARIN SOD (PORCINE) 5000UNITS/ML 1ML VIAL/SYRINGE SQ SCH ×2 (08:24→20:11)
[2021-09-23] MEDS ORDERED: DEXTROSE 50% 50 ML SYRINGE IV STA (17:10)
[2021-09-24] VITALS (42 sets, daily range): BP systolic 131–196; BP diastolic 61–95
[2021-09-24] MEDS: hydrALAZINE 20MG/ML 1ML VIAL (J0360 PER 20MG) IV SCH ×6 (00:38→20:01)
[2021-09-24] MEDS: niCARdipine IV 40 MG in IV 1 EA IV SCH ×5 (01:43→19:08)
[2021-09-24] MEDS ORDERED: levETIRAcetam INJection 1,000 MG in D5W 100 ML IV ONE (02:00)
[2021-09-24 04:42] LABS: BASO % 0.6 % (0.0-1.0); EOS # 0.2 10^3/uL (0.0-0.5); EOS % 3.5 % (0.0-3.0); HEMATOCRIT 36.6 % (42.0-52.0); HEMOGLOBIN 12.1 g/dl (13.5-17.5); LYMPH # 1.6 10^3/uL (1.5-5.0); LYMPH % 23.9 % (24.0-44.0); MEAN CORPUSCULAR HGB CONC 33.1 g/dl (32.0-36.5); MEAN CORPUSCULAR VOLUME 87.8 fl (80.0-96.0); MONO # 0.9 10^3/uL (0.0-0.8); NEUTROPHILS % 58.9 % (36.0-66.0); PLATELET COUNT, AUTOMATED 190 10^3/uL (150-450); RED BLOOD COUNT 4.17 10^6/uL (4.30-6.10); WHITE BLOOD COUNT 6.8 10^3/uL (4.0-10.0)
[2021-09-24] MEDS: SODIUM CHLORIDE 0.9% INJ 10 ML SYR IV SCH ×2 (05:22→18:00)
[2021-09-24 05:24] LABS: ALBUMIN 3.3 GM/DL (3.2-5.2); BILIRUBIN,TOTAL 1.2 MG/DL (0.2-1.0); CALCIUM LEVEL 8.8 MG/DL (8.5-10.1); CREATININE FOR GFR 5.55 MG/DL (0.70-1.30); GLOMERULAR FILTRATION RATE 12.1 (>60); PHOSPHORUS LEVEL 3.6 MG/DL (2.5-4.9); POTASSIUM SERUM 3.7 MEQ/L (3.5-5.1); TOTAL PROTEIN 7.1 GM/DL (6.4-8.2)
[2021-09-24] MEDS ORDERED: levETIRAcetam INJection 1,000 MG in D5W 100 ML IV SCH (08:25)
[2021-09-24] MEDS: HYDROCORTISONE 100 MG/2 ML VIAL (J1720 PER 1) IV SCH ×2 (08:54→20:00)
[2021-09-24] MEDS: HEPARIN SOD (PORCINE) 5000UNITS/ML 1ML VIAL/SYRINGE SQ SCH ×2 (08:55→20:00)
[2021-09-24] MEDS: PANTOPRAZOLE 40MG VIAL IV SCH (08:55)
[2021-09-24] MEDS ORDERED: METHADONE 10MG TAB PO SCH (09:00)
[2021-09-24] MEDS: NYSTATIN 500,000 U/5 ML SUSP UDC SS SCH ×2 (09:00→20:04)
[2021-09-24] MEDS: LABETALOL 200 MG TAB PO SCH ×2 (09:50→20:01)
[2021-09-24] MEDS: levETIRAcetam INJection 500 MG in D5W MINI-BAG PLUS 100 ML IV SCH (20:00)
[2021-09-25] VITALS (68 sets, daily range): BP systolic 135–204; BP diastolic 63–101
[2021-09-25] MEDS ORDERED: OLANZapine INTRAMUSCULAR 10MG VIAL IM ONE ×2 (01:15→04:00)
[2021-09-25] MEDS: niCARdipine IV 40 MG in IV 1 EA IV SCH ×4 (01:52→15:49)
[2021-09-25] MEDS ORDERED: MIDAZOLAM INJ 2MG/2ML VIAL (J2250 PER 1MG) IV STA (02:46)
[2021-09-25] MEDS: hydrALAZINE 20MG/ML 1ML VIAL (J0360 PER 20MG) IV SCH ×6 (04:02→20:14)
[2021-09-25 04:11] LABS: BASO % 0.3 % (0.0-1.0); EOS # 0.2 10^3/uL (0.0-0.5); EOS % 2.6 % (0.0-3.0); HEMATOCRIT 33.9 % (42.0-52.0); HEMOGLOBIN 10.8 g/dl (13.5-17.5); LYMPH # 1.1 10^3/uL (1.5-5.0); LYMPH % 17.8 % (24.0-44.0); MEAN CORPUSCULAR HEMOGLOBIN 28.6 pg (27.0-33.0); MEAN CORPUSCULAR HGB CONC 31.9 g/dl (32.0-36.5); MEAN CORPUSCULAR VOLUME 89.9 fl (80.0-96.0); MONO # 0.6 10^3/uL (0.0-0.8); MONO % 10.4 % (2.0-8.0); NEUTROPHILS # 4.2 10^3/uL (1.5-8.5); NEUTROPHILS % 68.4 % (36.0-66.0); PLATELET COUNT, AUTOMATED 172 10^3/uL (150-450); RED BLOOD COUNT 3.77 10^6/uL (4.30-6.10); WHITE BLOOD COUNT 6.1 10^3/uL (4.0-10.0)
[2021-09-25 04:51] LABS: ALBUMIN 3.3 GM/DL (3.2-5.2); BILIRUBIN,TOTAL 1.2 MG/DL (0.2-1.0); CALCIUM LEVEL 8.8 MG/DL (8.5-10.1); MAGNESIUM LEVEL 2.2 MG/DL (1.8-2.4); PHOSPHORUS LEVEL 4.7 MG/DL (2.5-4.9); POTASSIUM SERUM 3.9 MEQ/L (3.5-5.1); TOTAL PROTEIN 6.9 GM/DL (6.4-8.2)
[2021-09-25] MEDS: SODIUM CHLORIDE 0.9% INJ 10 ML SYR IV SCH ×2 (05:12→17:40)
[2021-09-25] MEDS: NYSTATIN 500,000 U/5 ML SUSP UDC SS SCH ×2 (07:37→20:13)
[2021-09-25] MEDS: HYDROCORTISONE 100 MG/2 ML VIAL (J1720 PER 1) IV SCH ×2 (07:38→20:13)
[2021-09-25] MEDS: LABETALOL 200 MG TAB PO SCH ×2 (07:38→20:13)
[2021-09-25] MEDS: METHADONE 10MG TAB PO SCH ×3 (07:39→20:12)
[2021-09-25] MEDS: PANTOPRAZOLE 40MG VIAL IV SCH (07:39)
[2021-09-25] MEDS ORDERED: PILL CUTTER 1 EACH XX PRN (08:10)
[2021-09-25] MEDS: MULTIVITAMINS/MINERALS THERAP 1 TAB NG SCH (08:22)
[2021-09-25] MEDS: THIAMINE 100 MG TAB NG SCH (08:22)
[2021-09-25] MEDS: HEPARIN SOD (PORCINE) 5000UNITS/ML 1ML VIAL/SYRINGE SQ SCH ×2 (08:23→20:15)
[2021-09-25 15:07] LABS: FENTANYL LEVEL BLOOD1 <0.1 ng/mL (0.3-1.5); FENTANYL LEVEL BLOOD3 <0.1 ng/mL (Not Estab.); LORAZEPAM (ATIVAN) LEVEL <10 ng/mL (50 - 240); MORPHINE LEVEL BLOOD <1 ng/mL (21-65)
[2021-09-25] MEDS: levETIRAcetam INJection 500 MG in D5W MINI-BAG PLUS 100 ML IV SCH (20:14)
[2021-09-25] MEDS ORDERED: OLANZapine 5 MG TAB NG SCH (21:00)
[2021-09-26] VITALS (80 sets, daily range): BP systolic 142–199; BP diastolic 68–99
[2021-09-26] MEDS: niCARdipine IV 40 MG in IV 1 EA IV SCH ×4 (00:20→21:00)
[2021-09-26] MEDS: OLANZapine 5 MG TAB PO PRN ×2 (00:20→05:10)
[2021-09-26] MEDS: hydrALAZINE 20MG/ML 1ML VIAL (J0360 PER 20MG) IV SCH ×6 (00:20→20:09)
[2021-09-26] MEDS: SODIUM CHLORIDE 0.9% INJ 10 ML SYR IV SCH ×2 (05:17→17:59)
[2021-09-26 05:41] LABS: BASO % 0.4 % (0.0-1.0); EOS # 0.1 10^3/uL (0.0-0.5); EOS % 0.7 % (0.0-3.0); HEMATOCRIT 34.2 % (42.0-52.0); LYMPH # 1.6 10^3/uL (1.5-5.0); LYMPH % 18.8 % (24.0-44.0); MEAN CORPUSCULAR HEMOGLOBIN 28.6 pg (27.0-33.0); MEAN CORPUSCULAR HGB CONC 32.2 g/dl (32.0-36.5); MEAN CORPUSCULAR VOLUME 89.1 fl (80.0-96.0); MONO # 0.6 10^3/uL (0.0-0.8); MONO % 7.5 % (2.0-8.0); NEUTROPHILS # 6.1 10^3/uL (1.5-8.5); NEUTROPHILS % 72.2 % (36.0-66.0); PLATELET COUNT, AUTOMATED 185 10^3/uL (150-450); RED BLOOD COUNT 3.84 10^6/uL (4.30-6.10); WHITE BLOOD COUNT 8.5 10^3/uL (4.0-10.0)
[2021-09-26] MEDS ORDERED: LIDOCAINE 1% SDV 5ML VIAL SC PRN (06:00)
[2021-09-26] MEDS ORDERED: SODIUM CHLORIDE 0.9% 1000ML IV PRN (06:00)
[2021-09-26 06:31] LABS: ALBUMIN 3.5 GM/DL (3.2-5.2); BILIRUBIN,TOTAL 0.9 MG/DL (0.2-1.0); CALCIUM LEVEL 8.6 MG/DL (8.5-10.1); CREATININE FOR GFR 9.98 MG/DL (0.70-1.30); GLOMERULAR FILTRATION RATE 6.2 (>60); MAGNESIUM LEVEL 2.3 MG/DL (1.8-2.4); PHOSPHORUS LEVEL 5.3 MG/DL (2.5-4.9); POTASSIUM SERUM 3.8 MEQ/L (3.5-5.1); TOTAL PROTEIN 7.2 GM/DL (6.4-8.2)
[2021-09-26] MEDS ORDERED: OLANZapine INTRAMUSCULAR 10MG VIAL IM ONE (06:55)
[2021-09-26] MEDS: PANTOPRAZOLE 40MG VIAL IV SCH (07:41)
[2021-09-26] MEDS: THIAMINE 100 MG TAB NG SCH (07:42)
[2021-09-26] MEDS: NYSTATIN 500,000 U/5 ML SUSP UDC SS SCH ×2 (07:42→20:08)
[2021-09-26] MEDS: MULTIVITAMINS/MINERALS THERAP 1 TAB NG SCH (07:43)
[2021-09-26] MEDS: HYDROCORTISONE 100 MG/2 ML VIAL (J1720 PER 1) IV SCH (07:43)
[2021-09-26] MEDS: METHADONE 10MG TAB PO SCH ×3 (07:44→20:08)
[2021-09-26] MEDS: LABETALOL 200 MG TAB PO SCH ×2 (07:45→20:08)
[2021-09-26] MEDS: HEPARIN SOD (PORCINE) 5000UNITS/ML 1ML VIAL/SYRINGE SQ SCH ×3 (10:24→20:08)
[2021-09-26] MEDS: ENALAPRIL MALEATE 5 MG TAB PO SCH (12:38)
[2021-09-26] MEDS: FLUDROCORTISONE ACETATE 0.1 MG TAB PO SCH (12:38)
[2021-09-26] MEDS: OLANZapine 5 MG TAB PO SCH (20:07)
[2021-09-26] MEDS ORDERED: CARVedilol 12.5 MG TAB PO SCH (21:00)
[2021-09-27] VITALS (84 sets, daily range): BP systolic 134–193; BP diastolic 70–110
[2021-09-27] MEDS: hydrALAZINE 20MG/ML 1ML VIAL (J0360 PER 20MG) IV SCH ×6 (01:48→21:15)
[2021-09-27] MEDS: niCARdipine IV 40 MG in IV 1 EA IV SCH ×2 (05:00→13:00)
[2021-09-27] MEDS: SODIUM CHLORIDE 0.9% INJ 10 ML SYR IV SCH ×2 (05:09→18:10)
[2021-09-27 06:05] LABS: BASO % 0.4 % (0.0-1.0); EOS # 0.2 10^3/uL (0.0-0.5); EOS % 3.2 % (0.0-3.0); HEMATOCRIT 35.5 % (42.0-52.0); HEMOGLOBIN 11.3 g/dl (13.5-17.5); LYMPH # 1.9 10^3/uL (1.5-5.0); LYMPH % 27.1 % (24.0-44.0); MEAN CORPUSCULAR HGB CONC 31.8 g/dl (32.0-36.5); MEAN CORPUSCULAR VOLUME 88.1 fl (80.0-96.0); MONO # 0.7 10^3/uL (0.0-0.8); MONO % 9.5 % (2.0-8.0); NEUTROPHILS # 4.2 10^3/uL (1.5-8.5); NEUTROPHILS % 59.5 % (36.0-66.0); PLATELET COUNT, AUTOMATED 191 10^3/uL (150-450); RED BLOOD COUNT 4.03 10^6/uL (4.30-6.10)
[2021-09-27 06:35] LABS: ALBUMIN 3.3 GM/DL (3.2-5.2); BILIRUBIN,TOTAL 0.9 MG/DL (0.2-1.0); CALCIUM LEVEL 8.8 MG/DL (8.5-10.1); CREATININE FOR GFR 7.2 MG/DL (0.70-1.30); MAGNESIUM LEVEL 2.1 MG/DL (1.8-2.4); PHOSPHORUS LEVEL 4.9 MG/DL (2.5-4.9); POTASSIUM SERUM 3.9 MEQ/L (3.5-5.1)
[2021-09-27] MEDS: PANTOPRAZOLE 40MG VIAL IV SCH (08:23)
[2021-09-27] MEDS: HEPARIN SOD (PORCINE) 5000UNITS/ML 1ML VIAL/SYRINGE SQ SCH ×3 (08:23→21:16)
[2021-09-27] MEDS: METHADONE 10MG TAB PO SCH ×3 (08:24→21:23)
[2021-09-27] MEDS: MULTIVITAMINS/MINERALS THERAP 1 TAB NG SCH (08:24)
[2021-09-27] MEDS: ENALAPRIL MALEATE 5 MG TAB PO SCH (08:24)
[2021-09-27] MEDS: NYSTATIN 500,000 U/5 ML SUSP UDC SS SCH ×3 (08:24→21:16)
[2021-09-27] MEDS: THIAMINE 100 MG TAB NG SCH (08:25)
[2021-09-27] MEDS: LABETALOL 200 MG TAB PO SCH ×3 (08:25→23:25)
[2021-09-27] MEDS ORDERED: lisinopriL 40MG TAB PO SCH (09:00)
[2021-09-27] MEDS ORDERED: HYDROCORTISONE 5MG TABLET PO SCH (09:00)
[2021-09-27] MEDS: FLUDROCORTISONE ACETATE 0.1 MG TAB PO SCH (09:17)
[2021-09-27] MEDS ORDERED: ISOSORBIDE MON. (IMDUR) 30MG XR TAB PO ONE (18:40)
[2021-09-27] MEDS: OLANZapine 5 MG TAB PO SCH (21:00)
[2021-09-28] VITALS (51 sets, daily range): BP systolic 143–185; BP diastolic 70–95
[2021-09-28] MEDS: hydrALAZINE 20MG/ML 1ML VIAL (J0360 PER 20MG) IV SCH ×7 (01:24→20:16)
[2021-09-28 04:20] LABS: HEMATOCRIT 33.2 % (42.0-52.0); HEMOGLOBIN 10.8 g/dl (13.5-17.5); MEAN CORPUSCULAR HGB CONC 32.5 g/dl (32.0-36.5); PLATELET COUNT, AUTOMATED 186 10^3/uL (150-450); RED BLOOD COUNT 3.73 10^6/uL (4.30-6.10); WHITE BLOOD COUNT 10.6 10^3/uL (4.0-10.0)
[2021-09-28] MEDS ORDERED: DOXAZOSIN MESYLATE 1 MG TAB PO ONE (04:30)
[2021-09-28] MEDS: LABETALOL 200 MG TAB PO SCH (05:55)
[2021-09-28] MEDS ORDERED: SODIUM CHLORIDE 0.9% 1000ML IV PRN (06:00)
[2021-09-28] MEDS ORDERED: LIDOCAINE 1% SDV 5ML VIAL SC PRN (06:00)
[2021-09-28] MEDS: SODIUM CHLORIDE 0.9% INJ 10 ML SYR IV SCH ×2 (06:23→18:37)
[2021-09-28] MEDS ORDERED: DOXAZOSIN MESYLATE 1 MG TAB PO SCH (09:00)
[2021-09-28] MEDS ORDERED: PANTOPRAZOLE 40MG TAB (PROTONIX) PO SCH (09:00)
[2021-09-28 10:24] LABS: ALBUMIN 3.1 GM/DL (3.2-5.2); BILIRUBIN,TOTAL 0.7 MG/DL (0.2-1.0); CALCIUM LEVEL 8.8 MG/DL (8.5-10.1); CREATININE FOR GFR 9.3 MG/DL (0.70-1.30); GLOMERULAR FILTRATION RATE 6.7 (>60); POTASSIUM SERUM 4.1 MEQ/L (3.5-5.1); TOTAL PROTEIN 6.6 GM/DL (6.4-8.2)
[2021-09-28 10:34] LABS: ABG BASE EXCESS 5.6 (-2.0-2.0); ABG HCO3 29.7 MEQ/L (22.0-26.0); ABG O2 SATURATION 98.5 % (95.0-99.0); ABG PARTIAL PRESSURE CO2 41.8 mmHg (35.0-45.0); ABG PARTIAL PRESSURE O2 112.9 mmHg (75.0-100.0); ABG STANDARD HCO3 29.5 MEQ/L (22.0-26.0)
[2021-09-28] MEDS ORDERED: FLUDROCORTISONE ACETATE 0.1 MG TAB NG SCH (11:29)
[2021-09-28] MEDS ORDERED: DOXAZOSIN MESYLATE 1 MG TAB NG SCH (11:29)
[2021-09-28] MEDS ORDERED: HYDROCORTISONE 5MG TABLET NG SCH (11:34)
[2021-09-28] MEDS ORDERED: lisinopriL 40MG TAB NG SCH (11:36)
[2021-09-28] MEDS ORDERED: METHADONE 10MG TAB NG SCH (11:36)
[2021-09-28] MEDS ORDERED: LABETALOL 200 MG TAB NG SCH (11:36)
[2021-09-28] MEDS ORDERED: OLANZapine 5 MG TAB NG SCH (11:37)
[2021-09-28] MEDS: PANTOPRAZOLE 40MG VIAL IV SCH (13:13)
[2021-09-28] MEDS: THIAMINE 100 MG TAB NG SCH (13:14)
[2021-09-28] MEDS: HEPARIN SOD (PORCINE) 5000UNITS/ML 1ML VIAL/SYRINGE SQ SCH ×3 (13:14→20:16)
[2021-09-28] MEDS: NYSTATIN 500,000 U/5 ML SUSP UDC SS SCH ×2 (13:14→20:17)
[2021-09-28] MEDS: MULTIVITAMINS/MINERALS THERAP 1 TAB NG SCH (13:15)
[2021-09-28] MEDS: DOXAZOSIN MESYLATE 1 MG TAB NG SCH ×2 (13:19→20:17)
[2021-09-28] MEDS: METHADONE 10MG TAB NG SCH ×2 (13:19→20:17)
[2021-09-28] MEDS: HYDROCORTISONE 5MG TABLET NG SCH (13:20)
[2021-09-28] MEDS: lisinopriL 40MG TAB NG SCH (13:20)
[2021-09-28] MEDS: FLUDROCORTISONE ACETATE 0.1 MG TAB NG SCH (13:20)
[2021-09-28] MEDS: LABETALOL 200 MG TAB NG SCH ×2 (15:48→21:22)
[2021-09-28] MEDS: OLANZapine 5 MG TAB NG SCH (20:18)
[2021-09-29] VITALS (17 sets, daily range): BP systolic 117–172; BP diastolic 66–99
[2021-09-29] MEDS: hydrALAZINE 20MG/ML 1ML VIAL (J0360 PER 20MG) IV SCH ×3 (00:01→10:09)
[2021-09-29] MEDS: LABETALOL 200 MG TAB NG SCH ×3 (05:11→21:31)
[2021-09-29] MEDS: SODIUM CHLORIDE 0.9% INJ 10 ML SYR IV SCH ×2 (05:12→18:32)
[2021-09-29 08:36] LABS: BASO # 0.1 10^3/uL (0.0-0.2); BASO % 0.5 % (0.0-1.0); EOS # 0.2 10^3/uL (0.0-0.5); EOS % 1.5 % (0.0-3.0); HEMATOCRIT 39.4 % (42.0-52.0); HEMOGLOBIN 12.6 g/dl (13.5-17.5); LYMPH # 1.3 10^3/uL (1.5-5.0); LYMPH % 12.7 % (24.0-44.0); MEAN CORPUSCULAR HEMOGLOBIN 28.4 pg (27.0-33.0); MEAN CORPUSCULAR VOLUME 88.9 fl (80.0-96.0); MONO # 0.9 10^3/uL (0.0-0.8); MONO % 8.8 % (2.0-8.0); NEUTROPHILS # 7.6 10^3/uL (1.5-8.5); NEUTROPHILS % 76.3 % (36.0-66.0); PLATELET COUNT, AUTOMATED 211 10^3/uL (150-450); RED BLOOD COUNT 4.43 10^6/uL (4.30-6.10); WHITE BLOOD COUNT 9.9 10^3/uL (4.0-10.0)
[2021-09-29 09:08] LABS: ALBUMIN 3.5 GM/DL (3.2-5.2); BILIRUBIN,TOTAL 0.9 MG/DL (0.2-1.0); CALCIUM LEVEL 9.8 MG/DL (8.5-10.1); CREATININE FOR GFR 7.46 MG/DL (0.70-1.30); GLOMERULAR FILTRATION RATE 8.6 (>60); POTASSIUM SERUM 4.1 MEQ/L (3.5-5.1); TOTAL PROTEIN 7.9 GM/DL (6.4-8.2)
[2021-09-29] MEDS: METHADONE 10MG TAB NG SCH ×3 (09:58→21:29)
[2021-09-29] MEDS: NYSTATIN 500,000 U/5 ML SUSP UDC SS SCH ×2 (09:58→21:28)
[2021-09-29] MEDS: HYDROCORTISONE 5MG TABLET NG SCH (09:58)
[2021-09-29] MEDS: THIAMINE 100 MG TAB NG SCH (09:59)
[2021-09-29] MEDS: lisinopriL 40MG TAB NG SCH (09:59)
[2021-09-29] MEDS: DOXAZOSIN MESYLATE 1 MG TAB NG SCH ×2 (09:59→21:29)
[2021-09-29] MEDS: FLUDROCORTISONE ACETATE 0.1 MG TAB NG SCH (09:59)
[2021-09-29] MEDS: MULTIVITAMINS/MINERALS THERAP 1 TAB NG SCH (09:59)
[2021-09-29] MEDS: HEPARIN SOD (PORCINE) 5000UNITS/ML 1ML VIAL/SYRINGE SQ SCH ×3 (10:00→21:27)
[2021-09-29] MEDS: PANTOPRAZOLE 40MG VIAL IV SCH (10:00)
[2021-09-29] MEDS: **hydrALAZINE** 10 MG TAB PO SCH ×3 (12:47→21:00)
[2021-09-29] MEDS: OLANZapine 5 MG TAB NG SCH (21:29)
[2021-09-29] MEDS: cloNIDine HCL 0.2 MG/24 HR PATCH TOP SCH (21:32)
[2021-09-30] VITALS (7 sets, daily range): BP systolic 128–155; BP diastolic 63–85
[2021-09-30] MEDS: **hydrALAZINE** 10 MG TAB PO SCH ×2 (00:39→06:09)
[2021-09-30] MEDS ORDERED: LIDOCAINE 1% SDV 5ML VIAL SC PRN (06:00)
[2021-09-30] MEDS: LABETALOL 200 MG TAB PO SCH ×3 (06:00→22:10)
[2021-09-30] MEDS ORDERED: SODIUM CHLORIDE 0.9% 1000ML IV PRN (06:00)
[2021-09-30] MEDS: SODIUM CHLORIDE 0.9% INJ 10 ML SYR IV SCH ×2 (06:10→17:16)
[2021-09-30 07:06] LABS: BASO % 0.7 % (0.0-1.0); EOS # 0.3 10^3/uL (0.0-0.5); HEMOGLOBIN 12.3 g/dl (13.5-17.5); LYMPH # 1.8 10^3/uL (1.5-5.0); LYMPH % 29.4 % (24.0-44.0); MEAN CORPUSCULAR HEMOGLOBIN 28.3 pg (27.0-33.0); MEAN CORPUSCULAR HGB CONC 31.5 g/dl (32.0-36.5); MEAN CORPUSCULAR VOLUME 89.7 fl (80.0-96.0); MONO # 0.7 10^3/uL (0.0-0.8); MONO % 11.5 % (2.0-8.0); NEUTROPHILS # 3.2 10^3/uL (1.5-8.5); NEUTROPHILS % 53.4 % (36.0-66.0); PLATELET COUNT, AUTOMATED 218 10^3/uL (150-450); RED BLOOD COUNT 4.35 10^6/uL (4.30-6.10)
[2021-09-30 07:40] LABS: CALCIUM LEVEL 9.4 MG/DL (8.5-10.1); CREATININE FOR GFR 9.69 MG/DL (0.70-1.30); GLOMERULAR FILTRATION RATE 6.4 (>60); MAGNESIUM LEVEL 2.1 MG/DL (1.8-2.4); PHOSPHORUS LEVEL 6.3 MG/DL (2.5-4.9); POTASSIUM SERUM 4.3 MEQ/L (3.5-5.1)
[2021-09-30] MEDS: HEPARIN SOD (PORCINE) 5000UNITS/ML 1ML VIAL/SYRINGE SQ SCH ×3 (10:33→21:59)
[2021-09-30] MEDS: PANTOPRAZOLE 40MG VIAL IV SCH (10:33)
[2021-09-30] MEDS: MULTIVITAMINS/MINERALS THERAP 1 TAB PO SCH (10:34)
[2021-09-30] MEDS: HYDROCORTISONE 5MG TABLET PO SCH (10:34)
[2021-09-30] MEDS: NYSTATIN 500,000 U/5 ML SUSP UDC SS SCH ×2 (10:34→21:58)
[2021-09-30] MEDS: THIAMINE 100 MG TAB PO SCH (10:35)
[2021-09-30] MEDS: FLUDROCORTISONE ACETATE 0.1 MG TAB PO SCH (10:37)
[2021-09-30] MEDS: METHADONE 10MG TAB PO SCH ×3 (10:37→21:59)
[2021-09-30] MEDS: DOXAZOSIN MESYLATE 1 MG TAB PO SCH ×2 (10:37→22:02)
[2021-09-30] MEDS: lisinopriL 40MG TAB PO SCH (10:37)
[2021-09-30] MEDS: **hydrALAZINE HCL** 25 MG TAB PO SCH ×2 (13:13→17:16)
[2021-09-30] MEDS ORDERED: OLANZapine 10 MG TAB PO SCH (21:00)
[2021-09-30] MEDS ORDERED: OLANZapine 5 MG TAB PO SCH (21:00)
[2021-10-01] MEDS: **hydrALAZINE HCL** 25 MG TAB PO SCH ×4 (00:34→17:57)
[2021-10-01 06:00] VITALS: BP 153/88
[2021-10-01] MEDS: LABETALOL 200 MG TAB PO SCH ×3 (06:08→20:52)
[2021-10-01] MEDS: SODIUM CHLORIDE 0.9% INJ 10 ML SYR IV SCH ×2 (06:10→17:59)
[2021-10-01 07:06] LABS: HEMATOCRIT 36.2 % (42.0-52.0); HEMOGLOBIN 11.5 g/dl (13.5-17.5); MEAN CORPUSCULAR HEMOGLOBIN 28.3 pg (27.0-33.0); MEAN CORPUSCULAR HGB CONC 31.8 g/dl (32.0-36.5); MEAN CORPUSCULAR VOLUME 88.9 fl (80.0-96.0); PLATELET COUNT, AUTOMATED 252 10^3/uL (150-450); RED BLOOD COUNT 4.07 10^6/uL (4.30-6.10); WHITE BLOOD COUNT 6.2 10^3/uL (4.0-10.0)
[2021-10-01 07:41] LABS: CALCIUM LEVEL 9.3 MG/DL (8.5-10.1); CREATININE FOR GFR 10.1 MG/DL (0.70-1.30); GLOMERULAR FILTRATION RATE 6.1 (>60); PHOSPHORUS LEVEL 6.3 MG/DL (2.5-4.9); POTASSIUM SERUM 4.5 MEQ/L (3.5-5.1)
[2021-10-01] MEDS: PANTOPRAZOLE 40MG VIAL IV SCH (09:00)
[2021-10-01] MEDS: DOXAZOSIN MESYLATE 1 MG TAB PO SCH ×2 (09:01→20:53)
[2021-10-01] MEDS: lisinopriL 40MG TAB PO SCH (09:01)
[2021-10-01] MEDS: HYDROCORTISONE 5MG TABLET PO SCH (09:01)
[2021-10-01] MEDS: MULTIVITAMINS/MINERALS THERAP 1 TAB PO SCH (09:02)
[2021-10-01] MEDS: METHADONE 10MG TAB PO SCH ×2 (09:02→20:51)
[2021-10-01] MEDS: THIAMINE 100 MG TAB PO SCH (09:03)
[2021-10-01] MEDS: HEPARIN SOD (PORCINE) 5000UNITS/ML 1ML VIAL/SYRINGE SQ SCH ×3 (09:03→20:53)
[2021-10-01] MEDS: NYSTATIN 500,000 U/5 ML SUSP UDC SS SCH ×2 (09:03→20:51)
[2021-10-01] MEDS: FLUDROCORTISONE ACETATE 0.1 MG TAB PO SCH (09:03)
[2021-10-01] MEDS: (RENVELA) SEVELAMER **CARBONate** 800 MG TAB PO SCH ×2 (12:46→17:57)
[2021-10-01 14:00] VITALS: BP 145/79
[2021-10-01] MEDS: OLANZapine 5 MG TAB PO SCH (20:52)
[2021-10-01 21:15] VITALS: BP 151/80
[2021-10-02] MEDS: **hydrALAZINE HCL** 25 MG TAB PO SCH ×6 (00:17→23:38)
[2021-10-02 05:30] VITALS: BP 135/80
[2021-10-02] MEDS ORDERED: LIDOCAINE 1% SDV 5ML VIAL SC PRN (06:00)
[2021-10-02] MEDS: SODIUM CHLORIDE 0.9% INJ 10 ML SYR IV SCH (06:00)
[2021-10-02] MEDS ORDERED: SODIUM CHLORIDE 0.9% 1000ML IV PRN (06:00)
[2021-10-02] MEDS: LABETALOL 200 MG TAB PO SCH ×4 (06:00→22:00)
[2021-10-02 06:11] LABS: HEMOGLOBIN 11.1 g/dl (13.5-17.5); MEAN CORPUSCULAR HEMOGLOBIN 28.8 pg (27.0-33.0); MEAN CORPUSCULAR HGB CONC 32.6 g/dl (32.0-36.5); MEAN CORPUSCULAR VOLUME 88.3 fl (80.0-96.0); PLATELET COUNT, AUTOMATED 250 10^3/uL (150-450); RED BLOOD COUNT 3.85 10^6/uL (4.30-6.10); WHITE BLOOD COUNT 5.6 10^3/uL (4.0-10.0)
[2021-10-02] MEDS: MULTIVITAMINS/MINERALS THERAP 1 TAB PO SCH ×2 (06:45→08:21)
[2021-10-02] MEDS: FLUDROCORTISONE ACETATE 0.1 MG TAB PO SCH ×2 (06:45→08:21)
[2021-10-02] MEDS: (RENVELA) SEVELAMER **CARBONate** 800 MG TAB PO SCH ×4 (06:45→18:00)
[2021-10-02] MEDS: DOXAZOSIN MESYLATE 1 MG TAB PO SCH ×3 (06:46→20:54)
[2021-10-02] MEDS: METHADONE 10MG TAB PO SCH ×3 (06:46→20:54)
[2021-10-02] MEDS: THIAMINE 100 MG TAB PO SCH ×2 (06:46→08:21)
[2021-10-02 06:50] LABS: CALCIUM LEVEL 9.4 MG/DL (8.5-10.1); CREATININE FOR GFR 11.8 MG/DL (0.70-1.30); GLOMERULAR FILTRATION RATE 5.1 (>60); MAGNESIUM LEVEL 1.9 MG/DL (1.8-2.4); PHOSPHORUS LEVEL 7.1 MG/DL (2.5-4.9)
[2021-10-02] MEDS: HYDROCORTISONE 5MG TABLET PO SCH ×2 (06:51→08:21)
[2021-10-02] MEDS: HEPARIN SOD (PORCINE) 5000UNITS/ML 1ML VIAL/SYRINGE SQ SCH ×3 (06:52→20:55)
[2021-10-02] MEDS ORDERED: LORazepam 1 MG TAB PO ONE (06:55)
[2021-10-02 07:29] LABS: FOLATE 8.4 NG/ML (>5.4)
[2021-10-02] MEDS: PANTOPRAZOLE 40MG TAB (PROTONIX) PO SCH (08:16)
[2021-10-02] MEDS: lisinopriL 40MG TAB PO SCH (08:16)
[2021-10-02] MEDS: NYSTATIN 500,000 U/5 ML SUSP UDC SS SCH ×2 (08:16→20:54)
[2021-10-02] MEDS ORDERED: OLANZapine INTRAMUSCULAR 10MG VIAL IM ONE (12:00)
[2021-10-02 14:00] VITALS: BP 148/78
[2021-10-02] MEDS: SUCROFERRIC OXYHYDROXIDE 500MG CHEW TAB (VELPHORO) PO SCH ×2 (14:01→18:00)
[2021-10-02] MEDS: OLANZapine 5 MG TAB PO SCH (20:54)
[2021-10-02 21:00] VITALS: BP 147/76
[2021-10-03 05:59] VITALS: BP 127/74
[2021-10-03] MEDS: LABETALOL 200 MG TAB PO SCH ×3 (06:00→22:02)
[2021-10-03] MEDS: **hydrALAZINE HCL** 25 MG TAB PO SCH ×4 (06:07→23:53)
[2021-10-03 07:07] LABS: CALCIUM LEVEL 9.8 MG/DL (8.5-10.1); CREATININE FOR GFR 7.63 MG/DL (0.70-1.30); GLOMERULAR FILTRATION RATE 8.4 (>60); MAGNESIUM LEVEL 1.9 MG/DL (1.8-2.4); PHOSPHORUS LEVEL 6.2 MG/DL (2.5-4.9); POTASSIUM SERUM 5.1 MEQ/L (3.5-5.1)
[2021-10-03] MEDS: METHADONE 10MG TAB PO SCH ×2 (08:16→20:24)
[2021-10-03] MEDS: THIAMINE 100 MG TAB PO SCH (08:16)
[2021-10-03] MEDS: HYDROCORTISONE 5MG TABLET PO SCH (08:16)
[2021-10-03] MEDS: HEPARIN SOD (PORCINE) 5000UNITS/ML 1ML VIAL/SYRINGE SQ SCH ×3 (08:17→20:25)
[2021-10-03] MEDS: (RENVELA) SEVELAMER **CARBONate** 800 MG TAB PO SCH ×3 (08:17→17:49)
[2021-10-03] MEDS: MULTIVITAMINS/MINERALS THERAP 1 TAB PO SCH (08:17)
[2021-10-03] MEDS: FLUDROCORTISONE ACETATE 0.1 MG TAB PO SCH (08:17)
[2021-10-03] MEDS: lisinopriL 40MG TAB PO SCH (08:18)
[2021-10-03] MEDS: DOXAZOSIN MESYLATE 1 MG TAB PO SCH ×2 (08:18→20:24)
[2021-10-03] MEDS: NYSTATIN 500,000 U/5 ML SUSP UDC SS SCH ×2 (08:18→20:24)
[2021-10-03] MEDS: SUCROFERRIC OXYHYDROXIDE 500MG CHEW TAB (VELPHORO) PO SCH ×3 (08:22→18:04)
[2021-10-03] MEDS: PANTOPRAZOLE 40MG TAB (PROTONIX) PO SCH (08:35)
[2021-10-03 14:00] VITALS: BP 121/63
[2021-10-03] MEDS ORDERED: OLANZapine 2.5MG TABLET PO SCH (21:00)
[2021-10-03 22:00] VITALS: BP 136/80
[2021-10-04] MEDS: **hydrALAZINE HCL** 25 MG TAB PO SCH ×3 (05:38→18:02)
[2021-10-04] MEDS: PANTOPRAZOLE 40MG TAB (PROTONIX) PO SCH (05:38)
[2021-10-04] MEDS: METHADONE 10MG TAB PO SCH (05:39)
[2021-10-04] MEDS: LABETALOL 200 MG TAB PO SCH ×3 (05:39→21:45)
[2021-10-04] MEDS: HYDROCORTISONE 5MG TABLET PO SCH (05:39)
[2021-10-04] MEDS: MULTIVITAMINS/MINERALS THERAP 1 TAB PO SCH (05:40)
[2021-10-04] MEDS: THIAMINE 100 MG TAB PO SCH (05:40)
[2021-10-04] MEDS: NYSTATIN 500,000 U/5 ML SUSP UDC SS SCH ×2 (05:40→21:44)
[2021-10-04] MEDS: HEPARIN SOD (PORCINE) 5000UNITS/ML 1ML VIAL/SYRINGE SQ SCH ×3 (05:40→21:44)
[2021-10-04] MEDS: FLUDROCORTISONE ACETATE 0.1 MG TAB PO SCH (05:40)
[2021-10-04] MEDS ORDERED: LIDOCAINE 1% SDV 5ML VIAL SC PRN (06:00)
[2021-10-04] MEDS ORDERED: SODIUM CHLORIDE 0.9% 1000ML IV PRN (06:00)
[2021-10-04 07:10] LABS: CALCIUM LEVEL 9.5 MG/DL (8.5-10.1); CREATININE FOR GFR 9.1 MG/DL (0.70-1.30); GLOMERULAR FILTRATION RATE 6.9 (>60); PHOSPHORUS LEVEL 6.4 MG/DL (2.5-4.9); POTASSIUM SERUM 5.6 MEQ/L (3.5-5.1)
[2021-10-04] MEDS: (RENVELA) SEVELAMER **CARBONate** 800 MG TAB PO SCH (07:49)
[2021-10-04] MEDS: SUCROFERRIC OXYHYDROXIDE 500MG CHEW TAB (VELPHORO) PO SCH ×3 (07:49→18:01)
[2021-10-04] MEDS: lisinopriL 40MG TAB PO SCH (12:19)
[2021-10-04] MEDS: DOXAZOSIN MESYLATE 1 MG TAB PO SCH ×2 (12:20→21:45)
[2021-10-04 14:00] VITALS: BP 122/64
[2021-10-05] MEDS: **hydrALAZINE HCL** 25 MG TAB PO SCH ×4 (00:03→17:20)
[2021-10-05 06:14] VITALS: BP 130/62
[2021-10-05] MEDS: LABETALOL 200 MG TAB PO SCH ×3 (06:19→21:34)
[2021-10-05] MEDS: SUCROFERRIC OXYHYDROXIDE 500MG CHEW TAB (VELPHORO) PO SCH ×3 (08:22→17:20)
[2021-10-05] MEDS: THIAMINE 100 MG TAB PO SCH (08:23)
[2021-10-05] MEDS: HEPARIN SOD (PORCINE) 5000UNITS/ML 1ML VIAL/SYRINGE SQ SCH ×3 (08:23→21:34)
[2021-10-05] MEDS: MULTIVITAMINS/MINERALS THERAP 1 TAB PO SCH (08:23)
[2021-10-05] MEDS: HYDROCORTISONE 5MG TABLET PO SCH (08:23)
[2021-10-05] MEDS: FLUDROCORTISONE ACETATE 0.1 MG TAB PO SCH (08:24)
[2021-10-05] MEDS: PANTOPRAZOLE 40MG TAB (PROTONIX) PO SCH (08:24)
[2021-10-05] MEDS: DOXAZOSIN MESYLATE 1 MG TAB PO SCH ×2 (08:24→21:37)
[2021-10-05] MEDS: lisinopriL 40MG TAB PO SCH (08:24)
[2021-10-05] MEDS: METHADONE 10MG TAB PO SCH (08:24)
[2021-10-05] MEDS: NYSTATIN 500,000 U/5 ML SUSP UDC SS SCH ×2 (08:25→21:33)
[2021-10-06] MEDS: **hydrALAZINE HCL** 25 MG TAB PO SCH ×4 (00:19→18:00)
[2021-10-06 06:00] VITALS: BP 149/74
[2021-10-06] MEDS ORDERED: LIDOCAINE 1% SDV 5ML VIAL SC PRN (06:00)
[2021-10-06] MEDS ORDERED: SODIUM CHLORIDE 0.9% 1000ML IV PRN (06:00)
[2021-10-06] MEDS: DOXAZOSIN MESYLATE 1 MG TAB PO SCH ×2 (06:26→20:33)
[2021-10-06] MEDS: FLUDROCORTISONE ACETATE 0.1 MG TAB PO SCH (06:27)
[2021-10-06] MEDS: lisinopriL 40MG TAB PO SCH (06:27)
[2021-10-06] MEDS: NYSTATIN 500,000 U/5 ML SUSP UDC SS SCH ×2 (06:27→20:31)
[2021-10-06] MEDS: PANTOPRAZOLE 40MG TAB (PROTONIX) PO SCH (06:28)
[2021-10-06] MEDS: LABETALOL 200 MG TAB PO SCH ×3 (06:29→22:00)
[2021-10-06] MEDS: MULTIVITAMINS/MINERALS THERAP 1 TAB PO SCH (06:29)
[2021-10-06] MEDS: METHADONE 10MG TAB PO SCH (06:29)
[2021-10-06] MEDS: HYDROCORTISONE 5MG TABLET PO SCH (06:30)
[2021-10-06] MEDS: THIAMINE 100 MG TAB PO SCH (06:32)
[2021-10-06] MEDS: SUCROFERRIC OXYHYDROXIDE 500MG CHEW TAB (VELPHORO) PO SCH ×4 (06:59→18:23)
[2021-10-06] MEDS: HEPARIN SOD (PORCINE) 5000UNITS/ML 1ML VIAL/SYRINGE SQ SCH ×3 (09:08→20:32)
[2021-10-06] MEDS: cloNIDine HCL 0.2 MG/24 HR PATCH TOP SCH (20:32)
[2021-10-07] MEDS: **hydrALAZINE HCL** 25 MG TAB PO SCH ×5 (05:46→23:36)
[2021-10-07] MEDS: LABETALOL 200 MG TAB PO SCH ×3 (05:46→21:40)
[2021-10-07 06:00] VITALS: BP 119/72
[2021-10-07] MEDS: NYSTATIN 500,000 U/5 ML SUSP UDC SS SCH ×2 (08:24→21:40)
[2021-10-07] MEDS: SUCROFERRIC OXYHYDROXIDE 500MG CHEW TAB (VELPHORO) PO SCH ×3 (08:24→17:55)
[2021-10-07] MEDS: MULTIVITAMINS/MINERALS THERAP 1 TAB PO SCH (08:25)
[2021-10-07] MEDS: HEPARIN SOD (PORCINE) 5000UNITS/ML 1ML VIAL/SYRINGE SQ SCH ×3 (08:25→21:40)
[2021-10-07] MEDS: PANTOPRAZOLE 40MG TAB (PROTONIX) PO SCH (08:25)
[2021-10-07] MEDS: THIAMINE 100 MG TAB PO SCH (08:25)
[2021-10-07] MEDS: METHADONE 10MG TAB PO SCH (08:26)
[2021-10-07] MEDS: DOXAZOSIN MESYLATE 1 MG TAB PO SCH ×2 (08:26→21:40)
[2021-10-07] MEDS: HYDROCORTISONE 5MG TABLET PO SCH (08:26)
[2021-10-07] MEDS: FLUDROCORTISONE ACETATE 0.1 MG TAB PO SCH (08:26)
[2021-10-07] MEDS: lisinopriL 40MG TAB PO SCH (08:26)
[2021-10-08 05:43] VITALS: BP 131/76
[2021-10-08] MEDS: LABETALOL 200 MG TAB PO SCH ×3 (05:48→20:57)
[2021-10-08] MEDS: **hydrALAZINE HCL** 25 MG TAB PO SCH ×4 (05:49→23:32)
[2021-10-08] MEDS: HEPARIN SOD (PORCINE) 5000UNITS/ML 1ML VIAL/SYRINGE SQ SCH ×3 (05:50→20:56)
[2021-10-08] MEDS: SUCROFERRIC OXYHYDROXIDE 500MG CHEW TAB (VELPHORO) PO SCH ×3 (08:37→17:29)
[2021-10-08] MEDS: NYSTATIN 500,000 U/5 ML SUSP UDC SS SCH ×2 (08:37→20:56)
[2021-10-08] MEDS: PANTOPRAZOLE 40MG TAB (PROTONIX) PO SCH (08:37)
[2021-10-08] MEDS: HYDROCORTISONE 5MG TABLET PO SCH (08:37)
[2021-10-08] MEDS: MULTIVITAMINS/MINERALS THERAP 1 TAB PO SCH (08:37)
[2021-10-08] MEDS: THIAMINE 100 MG TAB PO SCH (08:38)
[2021-10-08] MEDS: METHADONE 10MG TAB PO SCH (08:39)
[2021-10-08] MEDS: lisinopriL 40MG TAB PO SCH (08:39)
[2021-10-08] MEDS: DOXAZOSIN MESYLATE 1 MG TAB PO SCH ×2 (08:39→20:56)
[2021-10-08] MEDS: FLUDROCORTISONE ACETATE 0.1 MG TAB PO SCH (08:40)
[2021-10-09 04:43] VITALS: BP 131/75
[2021-10-09] MEDS: **hydrALAZINE HCL** 25 MG TAB PO SCH ×3 (04:57→18:28)
[2021-10-09] MEDS: LABETALOL 200 MG TAB PO SCH ×3 (04:57→21:35)
[2021-10-09] MEDS: HEPARIN SOD (PORCINE) 5000UNITS/ML 1ML VIAL/SYRINGE SQ SCH ×3 (04:59→21:39)
[2021-10-09] MEDS ORDERED: LIDOCAINE 1% SDV 5ML VIAL SC PRN (06:00)
[2021-10-09] MEDS ORDERED: SODIUM CHLORIDE 0.9% 1000ML IV PRN (06:00)
[2021-10-09] MEDS: DOXAZOSIN MESYLATE 1 MG TAB PO SCH ×2 (07:08→21:39)
[2021-10-09] MEDS: HYDROCORTISONE 5MG TABLET PO SCH (07:09)
[2021-10-09] MEDS: METHADONE 10MG TAB PO SCH (07:09)
[2021-10-09] MEDS: FLUDROCORTISONE ACETATE 0.1 MG TAB PO SCH (07:09)
[2021-10-09] MEDS: lisinopriL 40MG TAB PO SCH (07:09)
[2021-10-09] MEDS: SUCROFERRIC OXYHYDROXIDE 500MG CHEW TAB (VELPHORO) PO SCH ×3 (07:09→18:28)
[2021-10-09] MEDS: MULTIVITAMINS/MINERALS THERAP 1 TAB PO SCH (07:10)
[2021-10-09] MEDS: PANTOPRAZOLE 40MG TAB (PROTONIX) PO SCH (07:10)
[2021-10-09] MEDS: THIAMINE 100 MG TAB PO SCH (07:10)
[2021-10-09] MEDS: NYSTATIN 500,000 U/5 ML SUSP UDC SS SCH ×2 (12:53→21:39)
[2021-10-10] MEDS: **hydrALAZINE HCL** 25 MG TAB PO SCH ×5 (00:48→23:25)
[2021-10-10 05:24] VITALS: BP 126/69
[2021-10-10] MEDS: LABETALOL 200 MG TAB PO SCH ×3 (05:25→22:00)
[2021-10-10] MEDS: HEPARIN SOD (PORCINE) 5000UNITS/ML 1ML VIAL/SYRINGE SQ SCH ×3 (05:42→22:05)
[2021-10-10] MEDS: NYSTATIN 500,000 U/5 ML SUSP UDC SS SCH ×2 (08:20→22:04)
[2021-10-10] MEDS: SUCROFERRIC OXYHYDROXIDE 500MG CHEW TAB (VELPHORO) PO SCH ×3 (08:20→18:54)
[2021-10-10] MEDS: THIAMINE 100 MG TAB PO SCH (08:21)
[2021-10-10] MEDS: lisinopriL 40MG TAB PO SCH (08:21)
[2021-10-10] MEDS: PANTOPRAZOLE 40MG TAB (PROTONIX) PO SCH (08:21)
[2021-10-10] MEDS: HYDROCORTISONE 5MG TABLET PO SCH (08:21)
[2021-10-10] MEDS: DOXAZOSIN MESYLATE 1 MG TAB PO SCH ×2 (08:22→22:07)
[2021-10-10] MEDS: METHADONE 10MG TAB PO SCH (08:22)
[2021-10-10] MEDS: FLUDROCORTISONE ACETATE 0.1 MG TAB PO SCH (08:22)
[2021-10-10] MEDS: MULTIVITAMINS/MINERALS THERAP 1 TAB PO SCH (08:22)
[2021-10-10] MEDS ORDERED: PILL CUTTER 1 EACH XX ONE (08:26)
[2021-10-10] MEDS ORDERED: PANTOPRAZOLE 40MG VIAL IV SCH (21:00)
[2021-10-10 22:00] VITALS: BP 142/81
[2021-10-10] MEDS ORDERED: ACETAMINOPHEN 325 MG/10.15 ML UDC PO ONE (23:00)
[2021-10-10 23:16] LABS: HEMATOCRIT 36.1 % (42.0-52.0); HEMOGLOBIN 11.6 g/dl (13.5-17.5)
[2021-10-11] MEDS: PANTOPRAZOLE 40MG TAB (PROTONIX) PO SCH ×4 (01:04→22:01)
[2021-10-11] MEDS ORDERED: LIDOCAINE 1% SDV 5ML VIAL SC PRN (06:00)
[2021-10-11] MEDS ORDERED: SODIUM CHLORIDE 0.9% 1000ML IV PRN (06:00)
[2021-10-11] MEDS: LABETALOL 200 MG TAB PO SCH ×3 (06:51→22:02)
[2021-10-11] MEDS: **hydrALAZINE HCL** 25 MG TAB PO SCH ×4 (06:56→23:29)
[2021-10-11 07:01] VITALS: BP 144/81
[2021-10-11 07:38] LABS: BASO # 0.1 10^3/uL (0.0-0.2); EOS # 0.1 10^3/uL (0.0-0.5); EOS % 1.4 % (0.0-3.0); HEMATOCRIT 36.5 % (42.0-52.0); HEMOGLOBIN 11.4 g/dl (13.5-17.5); LYMPH # 1.5 10^3/uL (1.5-5.0); LYMPH % 24.6 % (24.0-44.0); MEAN CORPUSCULAR HEMOGLOBIN 27.9 pg (27.0-33.0); MEAN CORPUSCULAR HGB CONC 31.2 g/dl (32.0-36.5); MEAN CORPUSCULAR VOLUME 89.2 fl (80.0-96.0); MONO # 0.5 10^3/uL (0.0-0.8); MONO % 7.9 % (2.0-8.0); NEUTROPHILS % 64.9 % (36.0-66.0); PLATELET COUNT, AUTOMATED 248 10^3/uL (150-450); RED BLOOD COUNT 4.09 10^6/uL (4.30-6.10); WHITE BLOOD COUNT 6.2 10^3/uL (4.0-10.0)
[2021-10-11 07:52] LABS: INR 0.9; PROTHROMBIN TIME 12.6 SECONDS (12.7-14.5)
[2021-10-11 07:53] LABS: PARTIAL THROMBOPLASTIN TIME 33.8 SECONDS (25.9-37.0)
[2021-10-11 08:17] LABS: CALCIUM LEVEL 9.7 MG/DL (8.5-10.1); CREATININE FOR GFR 8.45 MG/DL (0.70-1.30); GLOMERULAR FILTRATION RATE 7.5 (>60); POTASSIUM SERUM 6.4 MEQ/L (3.5-5.1)
[2021-10-11] MEDS: SUCROFERRIC OXYHYDROXIDE 500MG CHEW TAB (VELPHORO) PO SCH ×3 (10:00→18:44)
[2021-10-11] MEDS: HYDROCORTISONE 5MG TABLET PO SCH (10:01)
[2021-10-11] MEDS: NYSTATIN 500,000 U/5 ML SUSP UDC SS SCH ×2 (10:01→22:00)
[2021-10-11] MEDS: MULTIVITAMINS/MINERALS THERAP 1 TAB PO SCH (10:02)
[2021-10-11] MEDS: METHADONE 10MG TAB PO SCH (10:02)
[2021-10-11] MEDS: FLUDROCORTISONE ACETATE 0.1 MG TAB PO SCH (10:03)
[2021-10-11] MEDS: THIAMINE 100 MG TAB PO SCH (10:03)
[2021-10-11] MEDS: DOXAZOSIN MESYLATE 1 MG TAB PO SCH ×2 (10:03→22:02)
[2021-10-11] MEDS: lisinopriL 40MG TAB PO SCH (10:03)
[2021-10-11] MEDS: HEPARIN SOD (PORCINE) 5000UNITS/ML 1ML VIAL/SYRINGE SQ SCH ×2 (14:00→21:59)
[2021-10-12 05:37] VITALS: BP 132/81
[2021-10-12] MEDS: HEPARIN SOD (PORCINE) 5000UNITS/ML 1ML VIAL/SYRINGE SQ SCH ×3 (05:41→21:58)
[2021-10-12] MEDS: **hydrALAZINE HCL** 25 MG TAB PO SCH ×3 (05:41→17:22)
[2021-10-12] MEDS: LABETALOL 200 MG TAB PO SCH ×3 (05:42→21:56)
[2021-10-12] MEDS: NYSTATIN 500,000 U/5 ML SUSP UDC SS SCH (08:28)
[2021-10-12] MEDS: HYDROCORTISONE 5MG TABLET PO SCH (08:28)
[2021-10-12] MEDS: PANTOPRAZOLE 40MG TAB (PROTONIX) PO SCH ×2 (08:28→21:58)
[2021-10-12] MEDS: MULTIVITAMINS/MINERALS THERAP 1 TAB PO SCH (08:28)
[2021-10-12] MEDS: THIAMINE 100 MG TAB PO SCH (08:29)
[2021-10-12] MEDS: FLUDROCORTISONE ACETATE 0.1 MG TAB PO SCH (08:29)
[2021-10-12] MEDS: METHADONE 10MG TAB PO SCH (08:29)
[2021-10-12] MEDS: SUCROFERRIC OXYHYDROXIDE 500MG CHEW TAB (VELPHORO) PO SCH ×3 (08:50→17:22)
[2021-10-12] MEDS: lisinopriL 40MG TAB PO SCH (08:52)
[2021-10-12] MEDS: DOXAZOSIN MESYLATE 1 MG TAB PO SCH ×2 (08:52→22:14)
[2021-10-12] MEDS: PATIROMER SORBITEX CALCIUM 8.4 GM POWDER PACKET (VELTASSA) PO SCH (13:31)
[2021-10-13] MEDS: **hydrALAZINE HCL** 25 MG TAB PO SCH ×5 (00:39→23:59)
[2021-10-13 06:00] VITALS: BP 149/74
[2021-10-13] MEDS ORDERED: SODIUM CHLORIDE 0.9% 1000ML IV PRN (06:00)
[2021-10-13] MEDS ORDERED: LIDOCAINE 1% SDV 5ML VIAL SC PRN (06:00)
[2021-10-13] MEDS: HYDROCORTISONE 5MG TABLET PO SCH (06:15)
[2021-10-13] MEDS: HEPARIN SOD (PORCINE) 5000UNITS/ML 1ML VIAL/SYRINGE SQ SCH ×3 (06:15→21:20)
[2021-10-13] MEDS: LABETALOL 200 MG TAB PO SCH ×3 (06:16→21:21)
[2021-10-13] MEDS: MULTIVITAMINS/MINERALS THERAP 1 TAB PO SCH (06:20)
[2021-10-13] MEDS: PANTOPRAZOLE 40MG TAB (PROTONIX) PO SCH ×2 (06:20→21:21)
[2021-10-13] MEDS: FLUDROCORTISONE ACETATE 0.1 MG TAB PO SCH (06:20)
[2021-10-13] MEDS: DOXAZOSIN MESYLATE 1 MG TAB PO SCH ×2 (06:21→21:21)
[2021-10-13] MEDS: lisinopriL 40MG TAB PO SCH (06:21)
[2021-10-13] MEDS: THIAMINE 100 MG TAB PO SCH (06:34)
[2021-10-13] MEDS: SUCROFERRIC OXYHYDROXIDE 500MG CHEW TAB (VELPHORO) PO SCH ×3 (06:34→17:22)
[2021-10-13] MEDS: METHADONE 10MG TAB PO SCH (09:20)
[2021-10-13] MEDS: PATIROMER SORBITEX CALCIUM 8.4 GM POWDER PACKET (VELTASSA) PO SCH (13:27)
[2021-10-13] MEDS: cloNIDine HCL 0.2 MG/24 HR PATCH TOP SCH (21:22)
[2021-10-14] MEDS: **hydrALAZINE HCL** 25 MG TAB PO SCH ×3 (06:00→18:05)
[2021-10-14] MEDS: LABETALOL 200 MG TAB PO SCH ×3 (06:00→22:08)
[2021-10-14 06:23] VITALS: BP 117/89
[2021-10-14] MEDS: HEPARIN SOD (PORCINE) 5000UNITS/ML 1ML VIAL/SYRINGE SQ SCH ×3 (06:31→22:07)
[2021-10-14] MEDS: PANTOPRAZOLE 40MG TAB (PROTONIX) PO SCH ×3 (09:00→22:09)
[2021-10-14] MEDS: SUCROFERRIC OXYHYDROXIDE 500MG CHEW TAB (VELPHORO) PO SCH ×3 (09:45→18:04)
[2021-10-14] MEDS: HYDROCORTISONE 5MG TABLET PO SCH (09:45)
[2021-10-14] MEDS: METHADONE 10MG TAB PO SCH (09:45)
[2021-10-14] MEDS: DOXAZOSIN MESYLATE 1 MG TAB PO SCH ×2 (09:46→22:08)
[2021-10-14] MEDS: MULTIVITAMINS/MINERALS THERAP 1 TAB PO SCH (09:46)
[2021-10-14] MEDS: lisinopriL 40MG TAB PO SCH (09:47)
[2021-10-14] MEDS: THIAMINE 100 MG TAB PO SCH (09:47)
[2021-10-14] MEDS: FLUDROCORTISONE ACETATE 0.1 MG TAB PO SCH (09:47)
[2021-10-14] MEDS: PATIROMER SORBITEX CALCIUM 8.4 GM POWDER PACKET (VELTASSA) PO SCH (13:15)
[2021-10-15] MEDS: **hydrALAZINE HCL** 25 MG TAB PO SCH ×4 (00:26→18:10)
[2021-10-15] MEDS: LABETALOL 200 MG TAB PO SCH ×3 (06:00→21:59)
[2021-10-15] MEDS: HEPARIN SOD (PORCINE) 5000UNITS/ML 1ML VIAL/SYRINGE SQ SCH ×3 (06:19→21:57)
[2021-10-15 06:20] VITALS: BP 132/77
[2021-10-15 07:16] LABS: HEMATOCRIT 33.6 % (42.0-52.0); HEMOGLOBIN 10.5 g/dl (13.5-17.5); MEAN CORPUSCULAR HEMOGLOBIN 28.3 pg (27.0-33.0); MEAN CORPUSCULAR HGB CONC 31.3 g/dl (32.0-36.5); MEAN CORPUSCULAR VOLUME 90.6 fl (80.0-96.0); PLATELET COUNT, AUTOMATED 196 10^3/uL (150-450); RED BLOOD COUNT 3.71 10^6/uL (4.30-6.10); WHITE BLOOD COUNT 5.4 10^3/uL (4.0-10.0)
[2021-10-15 07:47] LABS: ALBUMIN 3.3 GM/DL (3.2-5.2); CALCIUM LEVEL 9.8 MG/DL (8.5-10.1); CREATININE FOR GFR 7.32 MG/DL (0.70-1.30); GLOMERULAR FILTRATION RATE 8.8 (>60); PHOSPHORUS LEVEL 5.7 MG/DL (2.5-4.9); POTASSIUM SERUM 5.8 MEQ/L (3.5-5.1)
[2021-10-15] MEDS: SUCROFERRIC OXYHYDROXIDE 500MG CHEW TAB (VELPHORO) PO SCH ×3 (09:09→18:09)
[2021-10-15] MEDS: PANTOPRAZOLE 40MG TAB (PROTONIX) PO SCH ×2 (09:10→21:58)
[2021-10-15] MEDS: METHADONE 10MG TAB PO SCH (09:10)
[2021-10-15] MEDS: DOXAZOSIN MESYLATE 1 MG TAB PO SCH ×2 (09:10→21:58)
[2021-10-15] MEDS: THIAMINE 100 MG TAB PO SCH (09:10)
[2021-10-15] MEDS: HYDROCORTISONE 5MG TABLET PO SCH (09:10)
[2021-10-15] MEDS: MULTIVITAMINS/MINERALS THERAP 1 TAB PO SCH (09:10)
[2021-10-15] MEDS: FLUDROCORTISONE ACETATE 0.1 MG TAB PO SCH (09:10)
[2021-10-15] MEDS: lisinopriL 40MG TAB PO SCH (09:11)
[2021-10-15] MEDS: PATIROMER SORBITEX CALCIUM 8.4 GM POWDER PACKET (VELTASSA) PO SCH (13:04)
[2021-10-15 20:34] VITALS: BP 122/56
[2021-10-16] MEDS: **hydrALAZINE HCL** 25 MG TAB PO SCH ×5 (00:31→23:58)
[2021-10-16 06:00] VITALS: BP 144/78
[2021-10-16] MEDS: HEPARIN SOD (PORCINE) 5000UNITS/ML 1ML VIAL/SYRINGE SQ SCH ×3 (06:00→21:20)
[2021-10-16] MEDS: SUCROFERRIC OXYHYDROXIDE 500MG CHEW TAB (VELPHORO) PO SCH ×3 (06:01→17:17)
[2021-10-16] MEDS: MULTIVITAMINS/MINERALS THERAP 1 TAB PO SCH (06:01)
[2021-10-16] MEDS: HYDROCORTISONE 5MG TABLET PO SCH (06:01)
[2021-10-16] MEDS: METHADONE 10MG TAB PO SCH (06:02)
[2021-10-16] MEDS: LABETALOL 200 MG TAB PO SCH ×3 (06:02→21:19)
[2021-10-16] MEDS: lisinopriL 40MG TAB PO SCH (06:03)
[2021-10-16] MEDS: PANTOPRAZOLE 40MG TAB (PROTONIX) PO SCH ×2 (06:03→21:20)
[2021-10-16] MEDS: FLUDROCORTISONE ACETATE 0.1 MG TAB PO SCH (06:03)
[2021-10-16] MEDS: THIAMINE 100 MG TAB PO SCH (06:04)
[2021-10-16] MEDS: DOXAZOSIN MESYLATE 1 MG TAB PO SCH ×2 (06:04→21:20)
[2021-10-16] MEDS ORDERED: LIDOCAINE 1% SDV 5ML VIAL SC PRN (06:15)
[2021-10-16] MEDS ORDERED: SODIUM CHLORIDE 0.9% 1000ML IV PRN (06:15)
[2021-10-16] MEDS: PATIROMER SORBITEX CALCIUM 8.4 GM POWDER PACKET (VELTASSA) PO SCH (13:18)
[2021-10-17 06:00] VITALS: BP 146/81
[2021-10-17] MEDS: LABETALOL 200 MG TAB PO SCH ×3 (06:00→21:15)
[2021-10-17] MEDS: **hydrALAZINE HCL** 25 MG TAB PO SCH ×3 (06:00→17:18)
[2021-10-17] MEDS: HEPARIN SOD (PORCINE) 5000UNITS/ML 1ML VIAL/SYRINGE SQ SCH ×3 (06:11→21:23)
[2021-10-17] MEDS: SUCROFERRIC OXYHYDROXIDE 500MG CHEW TAB (VELPHORO) PO SCH ×3 (09:23→17:18)
[2021-10-17] MEDS: HYDROCORTISONE 5MG TABLET PO SCH (09:23)
[2021-10-17] MEDS: METHADONE 10MG TAB PO SCH (09:24)
[2021-10-17] MEDS: PANTOPRAZOLE 40MG TAB (PROTONIX) PO SCH ×2 (09:24→21:23)
[2021-10-17] MEDS: FLUDROCORTISONE ACETATE 0.1 MG TAB PO SCH (09:25)
[2021-10-17] MEDS: MULTIVITAMINS/MINERALS THERAP 1 TAB PO SCH (09:25)
[2021-10-17] MEDS: THIAMINE 100 MG TAB PO SCH (09:26)
[2021-10-17] MEDS: DOXAZOSIN MESYLATE 1 MG TAB PO SCH ×2 (09:27→21:23)
[2021-10-17] MEDS: lisinopriL 40MG TAB PO SCH (09:27)
[2021-10-17] MEDS: PATIROMER SORBITEX CALCIUM 8.4 GM POWDER PACKET (VELTASSA) PO SCH (12:54)
[2021-10-18] MEDS: **hydrALAZINE HCL** 25 MG TAB PO SCH ×4 (00:40→17:29)
[2021-10-18 05:50] VITALS: BP_SYST 145; BP_DIAS 104; BP_DIAS 85
[2021-10-18 05:57] LABS: HEMATOCRIT 29.6 % (42.0-52.0); HEMOGLOBIN 9.4 g/dl (13.5-17.5); MEAN CORPUSCULAR HEMOGLOBIN 28.7 pg (27.0-33.0); MEAN CORPUSCULAR HGB CONC 31.8 g/dl (32.0-36.5); MEAN CORPUSCULAR VOLUME 90.2 fl (80.0-96.0); PLATELET COUNT, AUTOMATED 160 10^3/uL (150-450); RED BLOOD COUNT 3.28 10^6/uL (4.30-6.10); WHITE BLOOD COUNT 5.2 10^3/uL (4.0-10.0)
[2021-10-18] MEDS: HEPARIN SOD (PORCINE) 5000UNITS/ML 1ML VIAL/SYRINGE SQ SCH ×3 (05:57→22:56)
[2021-10-18] MEDS: METHADONE 10MG TAB PO SCH (05:57)
[2021-10-18] MEDS: MULTIVITAMINS/MINERALS THERAP 1 TAB PO SCH (05:58)
[2021-10-18] MEDS: THIAMINE 100 MG TAB PO SCH (05:59)
[2021-10-18] MEDS: PANTOPRAZOLE 40MG TAB (PROTONIX) PO SCH ×2 (05:59→22:55)
[2021-10-18] MEDS: LABETALOL 200 MG TAB PO SCH ×3 (05:59→22:54)
[2021-10-18] MEDS: FLUDROCORTISONE ACETATE 0.1 MG TAB PO SCH (05:59)
[2021-10-18] MEDS: lisinopriL 40MG TAB PO SCH (06:00)
[2021-10-18] MEDS: DOXAZOSIN MESYLATE 1 MG TAB PO SCH ×2 (06:00→22:55)
[2021-10-18] MEDS ORDERED: LIDOCAINE 1% SDV 5ML VIAL SC PRN (06:50)
[2021-10-18] MEDS ORDERED: SODIUM CHLORIDE 0.9% 1000ML IV PRN (06:50)
[2021-10-18 07:07] LABS: ALBUMIN 3.1 GM/DL (3.2-5.2); CALCIUM LEVEL 8.9 MG/DL (8.5-10.1); CREATININE FOR GFR 7.48 MG/DL (0.70-1.30); GLOMERULAR FILTRATION RATE 8.6 (>60); PHOSPHORUS LEVEL 5.7 MG/DL (2.5-4.9); POTASSIUM SERUM 5.2 MEQ/L (3.5-5.1)
[2021-10-18] MEDS: HYDROCORTISONE 5MG TABLET PO SCH (09:00)
[2021-10-18] MEDS: SUCROFERRIC OXYHYDROXIDE 500MG CHEW TAB (VELPHORO) PO SCH ×3 (09:08→17:29)
[2021-10-18] MEDS: PATIROMER SORBITEX CALCIUM 8.4 GM POWDER PACKET (VELTASSA) PO SCH (12:59)
[2021-10-19] MEDS: **hydrALAZINE HCL** 25 MG TAB PO SCH ×4 (00:20→18:58)
[2021-10-19 05:50] VITALS: BP 150/85
[2021-10-19] MEDS: LABETALOL 200 MG TAB PO SCH ×3 (05:52→23:04)
[2021-10-19] MEDS: HEPARIN SOD (PORCINE) 5000UNITS/ML 1ML VIAL/SYRINGE SQ SCH ×3 (06:02→23:04)
[2021-10-19] MEDS: THIAMINE 100 MG TAB PO SCH (09:59)
[2021-10-19] MEDS: SUCROFERRIC OXYHYDROXIDE 500MG CHEW TAB (VELPHORO) PO SCH ×3 (09:59→18:58)
[2021-10-19] MEDS: PANTOPRAZOLE 40MG TAB (PROTONIX) PO SCH ×2 (09:59→23:03)
[2021-10-19] MEDS: HYDROCORTISONE 5MG TABLET PO SCH (09:59)
[2021-10-19] MEDS: FLUDROCORTISONE ACETATE 0.1 MG TAB PO SCH (10:00)
[2021-10-19] MEDS: lisinopriL 40MG TAB PO SCH (10:00)
[2021-10-19] MEDS: DOXAZOSIN MESYLATE 1 MG TAB PO SCH ×2 (10:00→23:03)
[2021-10-19] MEDS: MULTIVITAMINS/MINERALS THERAP 1 TAB PO SCH (10:00)
[2021-10-19] MEDS: METHADONE 10MG TAB PO SCH (10:01)
[2021-10-19] MEDS: PATIROMER SORBITEX CALCIUM 8.4 GM POWDER PACKET (VELTASSA) PO SCH (13:06)
[2021-10-19 20:00] VITALS: BP 151/80
[2021-10-20] MEDS: **hydrALAZINE HCL** 25 MG TAB PO SCH ×4 (00:29→17:48)
[2021-10-20] MEDS: LABETALOL 200 MG TAB PO SCH ×3 (06:00→22:00)
[2021-10-20] MEDS: THIAMINE 100 MG TAB PO SCH (06:26)
[2021-10-20] MEDS: HYDROCORTISONE 5MG TABLET PO SCH (06:26)
[2021-10-20] MEDS: HEPARIN SOD (PORCINE) 5000UNITS/ML 1ML VIAL/SYRINGE SQ SCH ×3 (06:26→22:00)
[2021-10-20] MEDS: lisinopriL 40MG TAB PO SCH (06:27)
[2021-10-20] MEDS: FLUDROCORTISONE ACETATE 0.1 MG TAB PO SCH (06:27)
[2021-10-20] MEDS: MULTIVITAMINS/MINERALS THERAP 1 TAB PO SCH (06:28)
[2021-10-20] MEDS: METHADONE 10MG TAB PO SCH (06:28)
[2021-10-20] MEDS: DOXAZOSIN MESYLATE 1 MG TAB PO SCH ×2 (06:28→20:34)
[2021-10-20] MEDS: PANTOPRAZOLE 40MG TAB (PROTONIX) PO SCH ×2 (06:28→20:33)
[2021-10-20 06:36] VITALS: BP 140/82
[2021-10-20] MEDS ORDERED: LIDOCAINE 1% SDV 5ML VIAL SC PRN (07:50)
[2021-10-20] MEDS ORDERED: SODIUM CHLORIDE 0.9% 1000ML IV PRN (07:50)
[2021-10-20] MEDS: SUCROFERRIC OXYHYDROXIDE 500MG CHEW TAB (VELPHORO) PO SCH ×3 (08:00→17:47)
[2021-10-20] MEDS: DARBEPOETIN 100 MCG/0.5 ML *DIALYSIS* SYRINGE (J0882) IV SCH (08:50)
[2021-10-20] MEDS: PATIROMER SORBITEX CALCIUM 8.4 GM POWDER PACKET (VELTASSA) PO SCH (12:00)
[2021-10-20] MEDS: cloNIDine HCL 0.2 MG/24 HR PATCH TOP SCH (20:34)
[2021-10-21] MEDS: **hydrALAZINE HCL** 25 MG TAB PO SCH ×5 (00:43→23:56)
[2021-10-21 06:00] VITALS: BP 162/85
[2021-10-21] MEDS: LABETALOL 200 MG TAB PO SCH ×3 (06:38→21:21)
[2021-10-21] MEDS: HEPARIN SOD (PORCINE) 5000UNITS/ML 1ML VIAL/SYRINGE SQ SCH ×3 (06:39→21:20)
[2021-10-21] MEDS: THIAMINE 100 MG TAB PO SCH (09:02)
[2021-10-21] MEDS: PANTOPRAZOLE 40MG TAB (PROTONIX) PO SCH ×2 (09:02→21:20)
[2021-10-21] MEDS: MULTIVITAMINS/MINERALS THERAP 1 TAB PO SCH (09:02)
[2021-10-21] MEDS: HYDROCORTISONE 5MG TABLET PO SCH (09:02)
[2021-10-21] MEDS: FLUDROCORTISONE ACETATE 0.1 MG TAB PO SCH (09:02)
[2021-10-21] MEDS: lisinopriL 40MG TAB PO SCH (09:03)
[2021-10-21] MEDS: METHADONE 10MG TAB PO SCH (09:04)
[2021-10-21] MEDS: DOXAZOSIN MESYLATE 1 MG TAB PO SCH ×2 (09:04→21:21)
[2021-10-21] MEDS: SUCROFERRIC OXYHYDROXIDE 500MG CHEW TAB (VELPHORO) PO SCH ×3 (09:11→18:03)
[2021-10-21] MEDS: PATIROMER SORBITEX CALCIUM 8.4 GM POWDER PACKET (VELTASSA) PO SCH (12:34)
[2021-10-22] MEDS: **hydrALAZINE HCL** 25 MG TAB PO SCH ×3 (05:53→21:19)
[2021-10-22] MEDS: LABETALOL 200 MG TAB PO SCH ×3 (05:54→22:15)
[2021-10-22] MEDS: HEPARIN SOD (PORCINE) 5000UNITS/ML 1ML VIAL/SYRINGE SQ SCH ×3 (05:54→22:14)
[2021-10-22 06:26] LABS: HEMATOCRIT 27.2 % (42.0-52.0); HEMOGLOBIN 8.6 g/dl (13.5-17.5); MEAN CORPUSCULAR HGB CONC 31.6 g/dl (32.0-36.5); MEAN CORPUSCULAR VOLUME 91.6 fl (80.0-96.0); PLATELET COUNT, AUTOMATED 152 10^3/uL (150-450); RED BLOOD COUNT 2.97 10^6/uL (4.30-6.10); WHITE BLOOD COUNT 4.9 10^3/uL (4.0-10.0)
[2021-10-22 07:04] LABS: ALBUMIN 3.2 GM/DL (3.2-5.2); BILIRUBIN,TOTAL 0.5 MG/DL (0.2-1.0); CREATININE FOR GFR 7.08 MG/DL (0.70-1.30); GLOMERULAR FILTRATION RATE 9.2 (>60); POTASSIUM SERUM 5.8 MEQ/L (3.5-5.1); TOTAL PROTEIN 6.4 GM/DL (6.4-8.2)
[2021-10-22] MEDS ORDERED: DEXTROSE 50% 50 ML SYRINGE IV STA (07:56)
[2021-10-22] MEDS ORDERED: HumuLIN R (REGULAR) INSULIN (NovoLIN R) **100U/ML** PER UNIT IV STA (07:56)
[2021-10-22] MEDS ORDERED: SOD POLYSTYRENE SULFONATE SUSP 15GM 60ML UD PO ONE (08:00)
[2021-10-22] MEDS: MULTIVITAMINS/MINERALS THERAP 1 TAB PO SCH (09:06)
[2021-10-22] MEDS: SUCROFERRIC OXYHYDROXIDE 500MG CHEW TAB (VELPHORO) PO SCH ×3 (09:06→18:00)
[2021-10-22] MEDS: HYDROCORTISONE 5MG TABLET PO SCH (09:06)
[2021-10-22] MEDS: PANTOPRAZOLE 40MG TAB (PROTONIX) PO SCH ×2 (09:07→22:14)
[2021-10-22] MEDS: FLUDROCORTISONE ACETATE 0.1 MG TAB PO SCH (09:07)
[2021-10-22] MEDS: THIAMINE 100 MG TAB PO SCH (09:07)
[2021-10-22] MEDS: METHADONE 10MG TAB PO SCH (09:07)
[2021-10-22] MEDS: lisinopriL 40MG TAB PO SCH (09:08)
[2021-10-22] MEDS: DOXAZOSIN MESYLATE 1 MG TAB PO SCH ×2 (09:08→22:15)
[2021-10-22] MEDS: PATIROMER SORBITEX CALCIUM 8.4 GM POWDER PACKET (VELTASSA) PO SCH (13:01)
[2021-10-22] MEDS ORDERED: LIDOCAINE 1% SDV 5ML VIAL SC PRN (17:00)
[2021-10-22] MEDS ORDERED: SODIUM CHLORIDE 0.9% 1000ML IV PRN (17:00)
[2021-10-22 22:00] VITALS: BP 158/86
[2021-10-23] MEDS: **hydrALAZINE HCL** 25 MG TAB PO SCH ×4 (00:54→17:03)
[2021-10-23 05:48] LABS: HEMATOCRIT 28.3 % (42.0-52.0); HEMOGLOBIN 8.8 g/dl (13.5-17.5); MEAN CORPUSCULAR HEMOGLOBIN 28.2 pg (27.0-33.0); MEAN CORPUSCULAR HGB CONC 31.1 g/dl (32.0-36.5); MEAN CORPUSCULAR VOLUME 90.7 fl (80.0-96.0); PLATELET COUNT, AUTOMATED 146 10^3/uL (150-450); RED BLOOD COUNT 3.12 10^6/uL (4.30-6.10); WHITE BLOOD COUNT 4.9 10^3/uL (4.0-10.0)
[2021-10-23] MEDS: LABETALOL 200 MG TAB PO SCH ×3 (05:59→21:38)
[2021-10-23 06:00] VITALS: BP 149/77
[2021-10-23] MEDS ORDERED: LIDOCAINE 1% SDV 5ML VIAL SC PRN (06:00)
[2021-10-23] MEDS: HEPARIN SOD (PORCINE) 5000UNITS/ML 1ML VIAL/SYRINGE SQ SCH ×3 (06:00→21:37)
[2021-10-23 06:34] LABS: BILIRUBIN,TOTAL 0.3 MG/DL (0.2-1.0); CALCIUM LEVEL 8.8 MG/DL (8.5-10.1); CREATININE FOR GFR 4.58 MG/DL (0.70-1.30); GLOMERULAR FILTRATION RATE 15.1 (>60); POTASSIUM SERUM 4.9 MEQ/L (3.5-5.1); TOTAL PROTEIN 6.3 GM/DL (6.4-8.2)
[2021-10-23] MEDS: SUCROFERRIC OXYHYDROXIDE 500MG CHEW TAB (VELPHORO) PO SCH ×3 (07:03→17:02)
[2021-10-23] MEDS: DOXAZOSIN MESYLATE 1 MG TAB PO SCH ×2 (07:04→21:37)
[2021-10-23] MEDS: FLUDROCORTISONE ACETATE 0.1 MG TAB PO SCH (07:04)
[2021-10-23] MEDS: METHADONE 10MG TAB PO SCH (07:05)
[2021-10-23] MEDS: HYDROCORTISONE 5MG TABLET PO SCH (07:05)
[2021-10-23] MEDS: PANTOPRAZOLE 40MG TAB (PROTONIX) PO SCH ×2 (07:05→21:38)
[2021-10-23] MEDS: MULTIVITAMINS/MINERALS THERAP 1 TAB PO SCH (07:05)
[2021-10-23] MEDS: THIAMINE 100 MG TAB PO SCH (07:06)
[2021-10-23] MEDS: lisinopriL 40MG TAB PO SCH (07:06)
[2021-10-23] MEDS ORDERED: SODIUM CHLORIDE 0.9% 1000ML IV PRN (10:20)
[2021-10-23] MEDS: PATIROMER SORBITEX CALCIUM 8.4 GM POWDER PACKET (VELTASSA) PO SCH (13:09)
[2021-10-24] MEDS: **hydrALAZINE HCL** 25 MG TAB PO SCH ×4 (00:06→18:12)
[2021-10-24] MEDS: HEPARIN SOD (PORCINE) 5000UNITS/ML 1ML VIAL/SYRINGE SQ SCH ×3 (06:40→22:16)
[2021-10-24] MEDS: LABETALOL 200 MG TAB PO SCH ×3 (06:41→22:15)
[2021-10-24 06:59] VITALS: BP 156/96
[2021-10-24] MEDS: SUCROFERRIC OXYHYDROXIDE 500MG CHEW TAB (VELPHORO) PO SCH ×3 (08:00→18:12)
[2021-10-24] MEDS: METHADONE 10MG TAB PO SCH (10:48)
[2021-10-24] MEDS: THIAMINE 100 MG TAB PO SCH (10:49)
[2021-10-24] MEDS: MULTIVITAMINS/MINERALS THERAP 1 TAB PO SCH (10:49)
[2021-10-24] MEDS: FLUDROCORTISONE ACETATE 0.1 MG TAB PO SCH (10:49)
[2021-10-24] MEDS: lisinopriL 40MG TAB PO SCH (10:49)
[2021-10-24] MEDS: HYDROCORTISONE 5MG TABLET PO SCH (10:49)
[2021-10-24] MEDS: DOXAZOSIN MESYLATE 1 MG TAB PO SCH ×2 (10:50→22:15)
[2021-10-24] MEDS: PANTOPRAZOLE 40MG TAB (PROTONIX) PO SCH ×2 (10:51→22:16)
[2021-10-24 14:30] VITALS: BP 121/74
[2021-10-24] MEDS: PATIROMER SORBITEX CALCIUM 8.4 GM POWDER PACKET (VELTASSA) PO SCH (16:04)
[2021-10-25] MEDS: **hydrALAZINE HCL** 25 MG TAB PO SCH ×4 (00:15→17:48)
[2021-10-25 05:36] VITALS: BP 150/78
[2021-10-25] MEDS: HEPARIN SOD (PORCINE) 5000UNITS/ML 1ML VIAL/SYRINGE SQ SCH ×4 (05:47→21:01)
[2021-10-25] MEDS: LABETALOL 200 MG TAB PO SCH ×3 (05:48→21:01)
[2021-10-25] MEDS: FLUDROCORTISONE ACETATE 0.1 MG TAB PO SCH (05:49)
[2021-10-25] MEDS: HYDROCORTISONE 5MG TABLET PO SCH (05:49)
[2021-10-25] MEDS: PANTOPRAZOLE 40MG TAB (PROTONIX) PO SCH ×2 (05:49→20:58)
[2021-10-25] MEDS: lisinopriL 40MG TAB PO SCH (05:50)
[2021-10-25] MEDS: METHADONE 10MG TAB PO SCH (05:50)
[2021-10-25] MEDS: THIAMINE 100 MG TAB PO SCH (05:50)
[2021-10-25] MEDS: MULTIVITAMINS/MINERALS THERAP 1 TAB PO SCH (05:50)
[2021-10-25] MEDS ORDERED: LIDOCAINE 1% SDV 5ML VIAL SC PRN (06:00)
[2021-10-25] MEDS ORDERED: SODIUM CHLORIDE 0.9% 1000ML IV PRN (06:00)
[2021-10-25 06:16] LABS: HEMATOCRIT 27.8 % (42.0-52.0); HEMOGLOBIN 8.7 g/dl (13.5-17.5); MEAN CORPUSCULAR HEMOGLOBIN 28.2 pg (27.0-33.0); MEAN CORPUSCULAR HGB CONC 31.3 g/dl (32.0-36.5); MEAN CORPUSCULAR VOLUME 90.3 fl (80.0-96.0); PLATELET COUNT, AUTOMATED 169 10^3/uL (150-450); RED BLOOD COUNT 3.08 10^6/uL (4.30-6.10); WHITE BLOOD COUNT 5.8 10^3/uL (4.0-10.0)
[2021-10-25 06:49] LABS: CALCIUM LEVEL 9.1 MG/DL (8.5-10.1); CREATININE FOR GFR 6.94 MG/DL (0.70-1.30); GLOMERULAR FILTRATION RATE 9.4 (>60); POTASSIUM SERUM 5.2 MEQ/L (3.5-5.1)
[2021-10-25] MEDS: SUCROFERRIC OXYHYDROXIDE 500MG CHEW TAB (VELPHORO) PO SCH ×3 (08:00→17:47)
[2021-10-25] MEDS ORDERED: MIDAZOLAM INJ 2MG/2ML VIAL (J2250 PER 1MG) As Ordered ONE (08:04)
[2021-10-25] MEDS ORDERED: fentaNYL 100 MCG/2 ML INJECTION As Ordered ONE (08:04)
[2021-10-25] MEDS ORDERED: ISOVUE-300 61% 50ML VIAL As Ordered ONE ×2 (08:04→10:11)
[2021-10-25] MEDS ORDERED: LIDOCAINE 1% MDV 20ML VIAL As Ordered ONE (08:05)
[2021-10-25] MEDS ORDERED: HEPARIN SOD (PORCINE) 5000UNITS/ML 1ML VIAL/SYRINGE SQ ONE (08:15)
[2021-10-25] MEDS: DOXAZOSIN MESYLATE 1 MG TAB PO SCH ×2 (11:06→20:58)
[2021-10-25] MEDS ORDERED: diphenhydrAMINE CREAM 30GM TOP PRN (15:15)
[2021-10-25] MEDS: PATIROMER SORBITEX CALCIUM 8.4 GM POWDER PACKET (VELTASSA) PO SCH (17:47)
[2021-10-26] MEDS: **hydrALAZINE HCL** 25 MG TAB PO SCH ×4 (00:12→18:30)
[2021-10-26] MEDS: HEPARIN SOD (PORCINE) 5000UNITS/ML 1ML VIAL/SYRINGE SQ SCH ×3 (06:09→20:27)
[2021-10-26] MEDS: LABETALOL 200 MG TAB PO SCH ×3 (06:09→22:10)
[2021-10-26 06:10] VITALS: BP 151/82
[2021-10-26] MEDS ORDERED: PILL CUTTER 1 EACH XX PRN (08:55)
[2021-10-26 09:00] VITALS: BP 151/82
[2021-10-26] MEDS: SUCROFERRIC OXYHYDROXIDE 500MG CHEW TAB (VELPHORO) PO SCH ×3 (09:00→18:29)
[2021-10-26] MEDS: lisinopriL 40MG TAB PO SCH (09:02)
[2021-10-26] MEDS: DOXAZOSIN MESYLATE 1 MG TAB PO SCH ×2 (09:02→20:28)
[2021-10-26] MEDS: HYDROCORTISONE 5MG TABLET PO SCH (09:02)
[2021-10-26] MEDS: METHADONE 5MG TAB PO SCH (09:02)
[2021-10-26] MEDS: MULTIVITAMINS/MINERALS THERAP 1 TAB PO SCH (09:02)
[2021-10-26] MEDS: THIAMINE 100 MG TAB PO SCH (09:03)
[2021-10-26] MEDS: FLUDROCORTISONE ACETATE 0.1 MG TAB PO SCH (09:03)
[2021-10-26] MEDS: PANTOPRAZOLE 40MG TAB (PROTONIX) PO SCH ×2 (09:04→20:27)
[2021-10-26] MEDS: PATIROMER SORBITEX CALCIUM 8.4 GM POWDER PACKET (VELTASSA) PO SCH (15:53)
[2021-10-27] MEDS: **hydrALAZINE HCL** 25 MG TAB PO SCH ×4 (00:12→17:23)
[2021-10-27 06:00] VITALS: BP 143/77
[2021-10-27] MEDS ORDERED: LIDOCAINE 1% SDV 5ML VIAL SC PRN (06:00)
[2021-10-27] MEDS ORDERED: SODIUM CHLORIDE 0.9% 1000ML IV PRN (06:00)
[2021-10-27] MEDS: lisinopriL 40MG TAB PO SCH (06:24)
[2021-10-27] MEDS: PANTOPRAZOLE 40MG TAB (PROTONIX) PO SCH ×2 (06:24→21:58)
[2021-10-27] MEDS: METHADONE 5MG TAB PO SCH (06:24)
[2021-10-27] MEDS: MULTIVITAMINS/MINERALS THERAP 1 TAB PO SCH (06:24)
[2021-10-27] MEDS: HYDROCORTISONE 5MG TABLET PO SCH (06:25)
[2021-10-27] MEDS: DOXAZOSIN MESYLATE 1 MG TAB PO SCH ×2 (06:25→21:58)
[2021-10-27] MEDS: THIAMINE 100 MG TAB PO SCH (06:26)
[2021-10-27] MEDS: FLUDROCORTISONE ACETATE 0.1 MG TAB PO SCH (06:26)
[2021-10-27] MEDS: HEPARIN SOD (PORCINE) 5000UNITS/ML 1ML VIAL/SYRINGE SQ SCH ×3 (06:27→21:59)
[2021-10-27] MEDS: LABETALOL 200 MG TAB PO SCH ×3 (06:27→21:57)
[2021-10-27] MEDS: SUCROFERRIC OXYHYDROXIDE 500MG CHEW TAB (VELPHORO) PO SCH ×3 (08:16→17:23)
[2021-10-27] MEDS: DARBEPOETIN 100 MCG/0.5 ML *DIALYSIS* SYRINGE (J0882) IV SCH (13:05)
[2021-10-27 14:05] LABS: CREATININE FOR GFR 7.56 MG/DL (0.70-1.30); GLOMERULAR FILTRATION RATE 8.5 (>60); POTASSIUM SERUM 4.7 MEQ/L (3.5-5.1)
[2021-10-27] MEDS: PATIROMER SORBITEX CALCIUM 8.4 GM POWDER PACKET (VELTASSA) PO SCH (17:23)
[2021-10-27] MEDS: cloNIDine HCL 0.2 MG/24 HR PATCH TOP SCH (21:58)
[2021-10-28] MEDS: **hydrALAZINE HCL** 25 MG TAB PO SCH ×4 (00:24→17:14)
[2021-10-28 05:51] VITALS: BP 159/86
[2021-10-28] MEDS: LABETALOL 200 MG TAB PO SCH ×3 (05:56→22:03)
[2021-10-28] MEDS: HEPARIN SOD (PORCINE) 5000UNITS/ML 1ML VIAL/SYRINGE SQ SCH ×3 (05:56→22:02)
[2021-10-28] MEDS: THIAMINE 100 MG TAB PO SCH (08:48)
[2021-10-28] MEDS: SUCROFERRIC OXYHYDROXIDE 500MG CHEW TAB (VELPHORO) PO SCH ×3 (08:48→17:13)
[2021-10-28] MEDS: MULTIVITAMINS/MINERALS THERAP 1 TAB PO SCH (08:48)
[2021-10-28] MEDS: lisinopriL 40MG TAB PO SCH (08:49)
[2021-10-28] MEDS: FLUDROCORTISONE ACETATE 0.1 MG TAB PO SCH (08:49)
[2021-10-28] MEDS: METHADONE 5MG TAB PO SCH (08:49)
[2021-10-28] MEDS: DOXAZOSIN MESYLATE 1 MG TAB PO SCH ×2 (08:49→22:03)
[2021-10-28] MEDS: PANTOPRAZOLE 40MG TAB (PROTONIX) PO SCH ×2 (08:49→22:02)
[2021-10-28] MEDS: HYDROCORTISONE 5MG TABLET PO SCH (08:49)
[2021-10-28] MEDS: PATIROMER SORBITEX CALCIUM 8.4 GM POWDER PACKET (VELTASSA) PO SCH (17:13)
[2021-10-29] MEDS: **hydrALAZINE HCL** 25 MG TAB PO SCH ×4 (00:10→17:14)
[2021-10-29 05:48] VITALS: BP 148/81
[2021-10-29] MEDS: LABETALOL 200 MG TAB PO SCH ×3 (05:52→21:55)
[2021-10-29] MEDS: HEPARIN SOD (PORCINE) 5000UNITS/ML 1ML VIAL/SYRINGE SQ SCH ×3 (05:52→21:54)
[2021-10-29] MEDS: SUCROFERRIC OXYHYDROXIDE 500MG CHEW TAB (VELPHORO) PO SCH ×3 (09:38→17:14)
[2021-10-29] MEDS: METHADONE 5MG TAB PO SCH (09:39)
[2021-10-29] MEDS: PANTOPRAZOLE 40MG TAB (PROTONIX) PO SCH ×2 (09:39→21:56)
[2021-10-29] MEDS: MULTIVITAMINS/MINERALS THERAP 1 TAB PO SCH (09:39)
[2021-10-29] MEDS: DOXAZOSIN MESYLATE 1 MG TAB PO SCH ×2 (09:39→21:56)
[2021-10-29] MEDS: FLUDROCORTISONE ACETATE 0.1 MG TAB PO SCH (09:40)
[2021-10-29] MEDS: HYDROCORTISONE 5MG TABLET PO SCH (09:40)
[2021-10-29] MEDS: THIAMINE 100 MG TAB PO SCH (09:40)
[2021-10-29] MEDS: lisinopriL 40MG TAB PO SCH (09:40)
[2021-10-29] MEDS: PATIROMER SORBITEX CALCIUM 8.4 GM POWDER PACKET (VELTASSA) PO SCH (16:00)
[2021-10-30] MEDS: **hydrALAZINE HCL** 25 MG TAB PO SCH ×4 (00:56→18:51)
[2021-10-30] MEDS ORDERED: SODIUM CHLORIDE 0.9% 1000ML IV PRN (06:00)
[2021-10-30] MEDS ORDERED: LIDOCAINE 1% SDV 5ML VIAL SC PRN (06:00)
[2021-10-30] MEDS: HEPARIN SOD (PORCINE) 5000UNITS/ML 1ML VIAL/SYRINGE SQ SCH ×3 (06:11→22:03)
[2021-10-30] MEDS: HYDROCORTISONE 5MG TABLET PO SCH (06:12)
[2021-10-30] MEDS: LABETALOL 200 MG TAB PO SCH ×3 (06:12→22:03)
[2021-10-30] MEDS: FLUDROCORTISONE ACETATE 0.1 MG TAB PO SCH (06:13)
[2021-10-30] MEDS: PANTOPRAZOLE 40MG TAB (PROTONIX) PO SCH ×2 (06:17→20:27)
[2021-10-30] MEDS: METHADONE 5MG TAB PO SCH (06:17)
[2021-10-30] MEDS: MULTIVITAMINS/MINERALS THERAP 1 TAB PO SCH (06:17)
[2021-10-30 06:44] LABS: HEMATOCRIT 29.8 % (42.0-52.0); HEMOGLOBIN 9.3 g/dl (13.5-17.5); MEAN CORPUSCULAR HEMOGLOBIN 28.4 pg (27.0-33.0); MEAN CORPUSCULAR HGB CONC 31.2 g/dl (32.0-36.5); MEAN CORPUSCULAR VOLUME 90.9 fl (80.0-96.0); PLATELET COUNT, AUTOMATED 175 10^3/uL (150-450); RED BLOOD COUNT 3.28 10^6/uL (4.30-6.10); WHITE BLOOD COUNT 5.6 10^3/uL (4.0-10.0)
[2021-10-30 07:10] VITALS: BP 178/93
[2021-10-30 07:38] LABS: ALBUMIN 3.2 GM/DL (3.2-5.2); CREATININE FOR GFR 9.03 MG/DL (0.70-1.30); GLOMERULAR FILTRATION RATE 6.9 (>60); PHOSPHORUS LEVEL 5.6 MG/DL (2.5-4.9); POTASSIUM SERUM 4.6 MEQ/L (3.5-5.1)
[2021-10-30] MEDS: SUCROFERRIC OXYHYDROXIDE 500MG CHEW TAB (VELPHORO) PO SCH ×3 (09:04→18:51)
[2021-10-30] MEDS: DOXAZOSIN MESYLATE 1 MG TAB PO SCH ×2 (09:05→20:27)
[2021-10-30] MEDS: lisinopriL 40MG TAB PO SCH (09:07)
[2021-10-30] MEDS: THIAMINE 100 MG TAB PO SCH (09:07)
[2021-10-31] MEDS: **hydrALAZINE HCL** 25 MG TAB PO SCH ×4 (00:20→17:44)
[2021-10-31] MEDS: HEPARIN SOD (PORCINE) 5000UNITS/ML 1ML VIAL/SYRINGE SQ SCH ×3 (05:26→22:39)
[2021-10-31] MEDS: LABETALOL 200 MG TAB PO SCH ×3 (05:26→22:39)
[2021-10-31 05:59] VITALS: BP 148/79
[2021-10-31] MEDS: PANTOPRAZOLE 40MG TAB (PROTONIX) PO SCH ×2 (08:22→20:30)
[2021-10-31] MEDS: HYDROCORTISONE 5MG TABLET PO SCH (08:22)
[2021-10-31] MEDS: MULTIVITAMINS/MINERALS THERAP 1 TAB PO SCH (08:22)
[2021-10-31] MEDS: DOXAZOSIN MESYLATE 1 MG TAB PO SCH ×2 (08:23→20:31)
[2021-10-31] MEDS: FLUDROCORTISONE ACETATE 0.1 MG TAB PO SCH (08:23)
[2021-10-31] MEDS: lisinopriL 40MG TAB PO SCH (08:23)
[2021-10-31] MEDS: THIAMINE 100 MG TAB PO SCH (08:24)
[2021-10-31] MEDS: METHADONE 5MG TAB PO SCH (08:25)
[2021-10-31] MEDS: SUCROFERRIC OXYHYDROXIDE 500MG CHEW TAB (VELPHORO) PO SCH ×3 (08:27→17:43)
[2021-10-31] MEDS: ACETAMINOPHEN TAB 650MG DOSE (2X325MG) PO PRN (20:32)
[2021-11-01] MEDS: LABETALOL 200 MG TAB PO SCH ×3 (06:00→21:41)
[2021-11-01] MEDS: MULTIVITAMINS/MINERALS THERAP 1 TAB PO SCH (06:19)
[2021-11-01] MEDS: THIAMINE 100 MG TAB PO SCH (06:19)
[2021-11-01] MEDS: METHADONE 5MG TAB PO SCH (06:19)
[2021-11-01] MEDS: PANTOPRAZOLE 40MG TAB (PROTONIX) PO SCH ×2 (06:19→21:37)
[2021-11-01] MEDS: lisinopriL 40MG TAB PO SCH (06:19)
[2021-11-01] MEDS: HYDROCORTISONE 5MG TABLET PO SCH (06:20)
[2021-11-01] MEDS: FLUDROCORTISONE ACETATE 0.1 MG TAB PO SCH (06:20)
[2021-11-01] MEDS: **hydrALAZINE HCL** 25 MG TAB PO SCH ×4 (06:20→18:32)
[2021-11-01] MEDS: HEPARIN SOD (PORCINE) 5000UNITS/ML 1ML VIAL/SYRINGE SQ SCH ×3 (06:21→21:37)
[2021-11-01] MEDS: DOXAZOSIN MESYLATE 1 MG TAB PO SCH ×2 (06:21→21:41)
[2021-11-01] MEDS ORDERED: SODIUM CHLORIDE 0.9% 1000ML IV PRN (06:55)
[2021-11-01] MEDS ORDERED: LIDOCAINE 1% SDV 5ML VIAL SC PRN (06:55)
[2021-11-01] MEDS: SUCROFERRIC OXYHYDROXIDE 500MG CHEW TAB (VELPHORO) PO SCH ×3 (09:14→18:31)
[2021-11-01 09:45] LABS: CALCIUM LEVEL 9.4 MG/DL (8.5-10.1); CREATININE FOR GFR 8.71 MG/DL (0.70-1.30); GLOMERULAR FILTRATION RATE 7.2 (>60); POTASSIUM SERUM 4.6 MEQ/L (3.5-5.1)
[2021-11-01] MEDS: ACETAMINOPHEN TAB 650MG DOSE (2X325MG) PO PRN (18:41)
[2021-11-02] MEDS: **hydrALAZINE HCL** 25 MG TAB PO SCH ×4 (00:24→18:35)
[2021-11-02] MEDS: LABETALOL 200 MG TAB PO SCH ×3 (06:00→21:45)
[2021-11-02] MEDS: HEPARIN SOD (PORCINE) 5000UNITS/ML 1ML VIAL/SYRINGE SQ SCH ×3 (06:44→21:46)
[2021-11-02 06:49] VITALS: BP 141/82
[2021-11-02] MEDS: SUCROFERRIC OXYHYDROXIDE 500MG CHEW TAB (VELPHORO) PO SCH ×3 (08:00→18:35)
[2021-11-02] MEDS: lisinopriL 40MG TAB PO SCH (10:19)
[2021-11-02] MEDS: DOXAZOSIN MESYLATE 1 MG TAB PO SCH ×2 (10:20→21:46)
[2021-11-02] MEDS: MULTIVITAMINS/MINERALS THERAP 1 TAB PO SCH (10:20)
[2021-11-02] MEDS: PANTOPRAZOLE 40MG TAB (PROTONIX) PO SCH ×2 (10:20→21:46)
[2021-11-02] MEDS: HYDROCORTISONE 5MG TABLET PO SCH (10:21)
[2021-11-02] MEDS: THIAMINE 100 MG TAB PO SCH (10:21)
[2021-11-02] MEDS: FLUDROCORTISONE ACETATE 0.1 MG TAB PO SCH (10:21)
[2021-11-02] MEDS: ACETAMINOPHEN TAB 650MG DOSE (2X325MG) PO PRN (10:23)
[2021-11-02] MEDS: METHADONE 10MG TAB PO SCH (18:35)
[2021-11-03] MEDS: **hydrALAZINE HCL** 25 MG TAB PO SCH ×4 (00:53→17:34)
[2021-11-03] MEDS ORDERED: SODIUM CHLORIDE 0.9% 1000ML IV PRN (06:10)
[2021-11-03] MEDS ORDERED: LIDOCAINE 1% SDV 5ML VIAL SC PRN (06:10)
[2021-11-03] MEDS: HEPARIN SOD (PORCINE) 5000UNITS/ML 1ML VIAL/SYRINGE SQ SCH ×4 (06:12→22:18)
[2021-11-03 06:13] LABS: CALCIUM LEVEL 9.4 MG/DL (8.5-10.1); CREATININE FOR GFR 7.98 MG/DL (0.70-1.30); POTASSIUM SERUM 4.1 MEQ/L (3.5-5.1)
[2021-11-03] MEDS: LABETALOL 200 MG TAB PO SCH ×3 (06:16→22:17)
[2021-11-03] MEDS: MULTIVITAMINS/MINERALS THERAP 1 TAB PO SCH (08:09)
[2021-11-03] MEDS: THIAMINE 100 MG TAB PO SCH (08:09)
[2021-11-03] MEDS: METHADONE 10MG TAB PO SCH (08:09)
[2021-11-03] MEDS: PANTOPRAZOLE 40MG TAB (PROTONIX) PO SCH ×2 (08:09→22:16)
[2021-11-03] MEDS: SUCROFERRIC OXYHYDROXIDE 500MG CHEW TAB (VELPHORO) PO SCH ×3 (08:09→18:00)
[2021-11-03] MEDS: FLUDROCORTISONE ACETATE 0.1 MG TAB PO SCH (08:10)
[2021-11-03] MEDS: HYDROCORTISONE 5MG TABLET PO SCH (08:10)
[2021-11-03] MEDS: lisinopriL 40MG TAB PO SCH (08:13)
[2021-11-03] MEDS: DOXAZOSIN MESYLATE 1 MG TAB PO SCH ×3 (08:13→22:16)
[2021-11-03] MEDS: DARBEPOETIN 100 MCG/0.5 ML *DIALYSIS* SYRINGE (J0882) IV SCH (09:29)
[2021-11-03 18:26] VITALS: BP 111/70
[2021-11-03] MEDS: cloNIDine HCL 0.2 MG/24 HR PATCH TOP SCH (21:00)
[2021-11-03 22:16] VITALS: BP 128/76
[2021-11-04] MEDS: **hydrALAZINE HCL** 25 MG TAB PO SCH ×3 (00:37→12:00)
[2021-11-04 06:00] VITALS: BP 124/74
[2021-11-04] MEDS: HEPARIN SOD (PORCINE) 5000UNITS/ML 1ML VIAL/SYRINGE SQ SCH (06:00)
[2021-11-04] MEDS: LABETALOL 200 MG TAB PO SCH (06:00)
[2021-11-04] MEDS: METHADONE 10MG TAB PO SCH (08:26)
[2021-11-04] MEDS: HYDROCORTISONE 5MG TABLET PO SCH (08:26)
[2021-11-04] MEDS: SUCROFERRIC OXYHYDROXIDE 500MG CHEW TAB (VELPHORO) PO SCH ×2 (08:26→12:49)
[2021-11-04] MEDS: PANTOPRAZOLE 40MG TAB (PROTONIX) PO SCH (08:27)
[2021-11-04] MEDS: THIAMINE 100 MG TAB PO SCH (08:27)
[2021-11-04] MEDS: FLUDROCORTISONE ACETATE 0.1 MG TAB PO SCH (08:27)
[2021-11-04] MEDS: MULTIVITAMINS/MINERALS THERAP 1 TAB PO SCH (08:28)
[2021-11-04] MEDS: DOXAZOSIN MESYLATE 1 MG TAB PO SCH (08:28)
[2021-11-04] MEDS: lisinopriL 40MG TAB PO SCH (08:28)
[2021-11-04 12:00] VITALS: BP 115/69
[2021-11-04] MEDS ORDERED: METH-1177 PO (13:29)
[2021-11-04] MEDS ORDERED: LISI20TA33 PO (13:29)
[2021-11-04] MEDS ORDERED: CLON0.2D6 TOP (13:29)
[2021-11-04] MEDS ORDERED: LABE100T71 PO (13:29)
[2021-11-04] MEDS ORDERED: THIA100TA PO (13:29)
[2021-11-04] MEDS ORDERED: VELP5CHW PO (13:29)
[2021-11-04] MEDS ORDERED: BACIOIN5 TOP (13:32)
== END 2021-11-04 14:13 | disposition home or self-care (01) | DRG 91 ==
LOC: EDBD 08:26 → M ED 08:26 → M ED INP 10:39 → M ICU 12:59 → M PCU 09-29 13:50 → M MSPAV 09-30 18:18
PROVIDERS: ADMIT Internal Medicine Critical Care Medicine; ATTEND Internal Medicine
PROC: 05HB33Z Insertion of Infusion Device into Right Basilic Vein, Percutaneous Approach (ICD-10-PCS; principal; 2021-09-22 10:00)
PROC: B246ZZZ Ultrasonography of Right and Left Heart (ICD-10-PCS; 2021-09-25)
PROC: B50WYZZ Plain Radiography of Dialysis Shunt/Fistula using Other Contrast (ICD-10-PCS; 2021-10-25)
DX: G92.8 Other toxic encephalopathy (principal); N18.6 End stage renal disease; J69.0 Pneumonitis due to inhalation of food and vomit; I13.11 Hypertensive heart and chronic kidney disease without heart failure, with stage 5 chronic kidney disease, or end stage renal disease; T82.590A Other mechanical complication of surgically created arteriovenous fistula, initial encounter; T86.12 Kidney transplant failure; E27.40 Unspecified adrenocortical insufficiency; E87.1 Hypo-osmolality and hyponatremia; I16.1 Hypertensive emergency; E46 Unspecified protein-calorie malnutrition; B37.0 Candidal stomatitis; E87.2 Acidosis; Z99.2 Dependence on renal dialysis; K21.9 Gastro-esophageal reflux disease without esophagitis; E87.5 Hyperkalemia; M54.50 Low back pain, unspecified; G89.29 Other chronic pain; E53.8 Deficiency of other specified B group vitamins; R11.15 Cyclical vomiting syndrome unrelated to migraine; F41.9 Anxiety disorder, unspecified; G62.9 Polyneuropathy, unspecified; Z87.891 Personal history of nicotine dependence; Z20.822 Contact with and (suspected) exposure to COVID-19; G40.909 Epilepsy, unspecified, not intractable, without status epilepticus; S91.312D Laceration without foreign body, left foot, subsequent encounter; Z79.2 Long term (current) use of antibiotics; Z79.899 Other long term (current) drug therapy; Z88.8 Allergy status to other drugs, medicaments and biological substances; E16.2 Hypoglycemia, unspecified; I72.9 Aneurysm of unspecified site

== ENCOUNTER 2022-03-16 08:28 | Inpatient (IN) | payer MEDICARE, MEDICAID ==
[~2022-03-16] VITALS: Ht 182.9 cm; Wt 101.9 kg
[~2022-03-16 08:28] MED LIST changes: +BACIOIN5 TOP; +CINA30TA4 PO; +CLON0.2D6 TOP; +HYDR-4467 PO; +LABE100T71 PO; +LISI20TA33 PO; +MED REC COMMENT; +PRED50TA PO; +SILD100T PO; +THIA100TA PO; +VENO20IN5 IV
[2022-03-16] MEDS ORDERED: VANCOMYCIN HCL 1,500 MG in NS 250 ML IV ONE (08:50)
[2022-03-16 09:29] LABS: BASO # 0.1 10^3/uL (0.0-0.2); BASO % 0.6 % (0.0-1.0); EOS # 0.1 10^3/uL (0.0-0.5); EOS % 1.4 % (0.0-3.0); HEMATOCRIT 36.7 % (42.0-52.0); HEMOGLOBIN 11.6 g/dl (13.5-17.5); LYMPH # 1.5 10^3/uL (1.5-5.0); LYMPH % 18.9 % (24.0-44.0); MEAN CORPUSCULAR HEMOGLOBIN 29.5 pg (27.0-33.0); MEAN CORPUSCULAR HGB CONC 31.6 g/dl (32.0-36.5); MEAN CORPUSCULAR VOLUME 93.4 fl (80.0-96.0); MONO # 0.8 10^3/uL (0.0-0.8); MONO % 9.3 % (2.0-8.0); NEUTROPHILS # 5.6 10^3/uL (1.5-8.5); NEUTROPHILS % 69.6 % (36.0-66.0); PLATELET COUNT, AUTOMATED 268 10^3/uL (150-450); RED BLOOD COUNT 3.93 10^6/uL (4.30-6.10); WHITE BLOOD COUNT 8.1 10^3/uL (4.0-10.0)
[2022-03-16 09:39] LABS: INR 0.92; PROTHROMBIN TIME 12.6 SECONDS (12.5-14.5)
[2022-03-16 09:56] LABS: ERYTHROCYTE SEDIMENTATION RATE 104 mm/hr (0-15)
[2022-03-16] MEDS ORDERED: LOKE5PAK PO (09:56)
[2022-03-16] MEDS ORDERED: VITA100T29 PO (09:56)
[2022-03-16] MEDS ORDERED: PANT40TA29 PO (09:56)
[2022-03-16] MEDS ORDERED: VANCOMYCIN HCL 750 MG, VIAL MATE ADAPTER 1 EACH in D5W 250 ML IV ONE ×6 (10:00)
[2022-03-16 10:02] LABS: RSV AMPLIFICATION NEGATIVE (NEGATIVE)
[2022-03-16 10:08] LABS: C REACTIVE PROTEIN QUANTITATIV 3.7 MG/DL (<1.0)
[2022-03-16 10:16] LABS: ALBUMIN 3.6 G/DL (3.2-5.2); BILIRUBIN,TOTAL 0.2 MG/DL (0.3-1.2); CALCIUM LEVEL 8.7 MG/DL (8.5-10.1); CREATININE FOR GFR 9.45 MG/DL (0.70-1.30); GLOMERULAR FILTRATION RATE 6.6 (>60); POTASSIUM SERUM 6.4 MMOL/L (3.5-5.1); TOTAL PROTEIN 7.4 G/DL (5.7-8.2)
[2022-03-16] MEDS ORDERED: CALCIUM GLUCONATE 1,000MG/10ML VIAL (100MG/ML) IV ONE (10:45)
[2022-03-16] MEDS ORDERED: LISI20TA33 PO (11:15)
[2022-03-16] MEDS ORDERED: METH-1177 PO (11:15)
[2022-03-16] MEDS ORDERED: THIA100T7 PO (11:15)
[2022-03-16] MEDS ORDERED: LABE100T6 PO (11:20)
[2022-03-16] MEDS ORDERED: HOME MED LIST COMPLETE! XX SCH (11:25)
[2022-03-16] MEDS ORDERED: GENTAMICIN IV ONE (12:00)
[2022-03-16] MEDS ORDERED: D5W IV ONE (12:00)
[2022-03-16] MEDS ORDERED: HEPARIN 1,000UNITS/ML 10ML VIAL (FOR RADIOLOGY & DIALYSIS ONLY) XX SCH (12:10)
[2022-03-16] MEDS ORDERED: HEPARIN 1,000UNITS/ML 10ML VIAL (FOR RADIOLOGY & DIALYSIS ONLY) IV PRN (12:10)
[2022-03-16] MEDS ORDERED: SODIUM CHLORIDE 0.9% 1000ML IV PRN (12:10)
[2022-03-16] MEDS ORDERED: LIDOCAINE 1% MDV 20ML VIAL As Ordered ONE (13:08)
[2022-03-16] MEDS ORDERED: HEPARIN 1,000UNITS/ML 10ML VIAL (FOR RADIOLOGY & DIALYSIS ONLY) As Ordered ONE (13:08)
[2022-03-16] MEDS ORDERED: SODIUM BICARBONATE 8.4% INJ 50ML SYRINGE IV STA (13:13)
[2022-03-16] MEDS ORDERED: diphenhydrAMINE 50MG/ML VIAL As Ordered ONE (13:14)
[2022-03-16] MEDS ORDERED: fentaNYL 100 MCG/2 ML INJECTION As Ordered ONE (13:14)
[2022-03-16] MEDS ORDERED: MIDAZOLAM INJ 2MG/2ML VIAL As Ordered ONE (13:15)
[2022-03-16] MEDS ORDERED: SODIUM BICARBONATE 8.4% INJ 50MEQ 50ML VIAL As Ordered ONE (13:17)
[2022-03-16 20:20] VITALS: BP 102/62
[2022-03-16] MEDS: QUEtiapine FUMARATE 25 MG TAB PO SCH (20:25)
[2022-03-16] MEDS: fluvoxaMINE MALEATE 50 MG TAB PO SCH (21:48)
[2022-03-17 05:30] VITALS: BP 101/52
[2022-03-17 06:43] LABS: HEMATOCRIT 37.7 % (42.0-52.0); HEMOGLOBIN 11.8 g/dl (13.5-17.5); MEAN CORPUSCULAR HEMOGLOBIN 29.6 pg (27.0-33.0); MEAN CORPUSCULAR HGB CONC 31.3 g/dl (32.0-36.5); MEAN CORPUSCULAR VOLUME 94.5 fl (80.0-96.0); PLATELET COUNT, AUTOMATED 225 10^3/uL (150-450); RED BLOOD COUNT 3.99 10^6/uL (4.30-6.10); WHITE BLOOD COUNT 6.5 10^3/uL (4.0-10.0)
[2022-03-17 07:14] LABS: ALBUMIN 3.6 G/DL (3.2-5.2); CALCIUM LEVEL 9.1 MG/DL (8.5-10.1); CREATININE FOR GFR 7.79 MG/DL (0.70-1.30); GLOMERULAR FILTRATION RATE 8.2 (>60); POTASSIUM SERUM 6.3 MMOL/L (3.5-5.1)
[2022-03-17] MEDS ORDERED: SODIUM CHLORIDE 0.9% 1000ML IV PRN (07:30)
[2022-03-17] MEDS ORDERED: HEPARIN 1,000UNITS/ML 10ML VIAL (FOR RADIOLOGY & DIALYSIS ONLY) XX SCH (07:30)
[2022-03-17] MEDS ORDERED: HEPARIN 1,000UNITS/ML 10ML VIAL (FOR RADIOLOGY & DIALYSIS ONLY) IV PRN (07:30)
[2022-03-17] MEDS: PANTOPRAZOLE 40MG TAB (PROTONIX) PO SCH (12:53)
[2022-03-17] MEDS: THIAMINE 100 MG TAB PO SCH (12:53)
[2022-03-17] MEDS: QUEtiapine FUMARATE 25 MG TAB PO SCH ×2 (12:53→20:10)
[2022-03-17] MEDS: CYANOCOBALAMIN 500 MCG TAB PO SCH (12:53)
[2022-03-17] MEDS: HYDROCORTISONE 5MG TABLET PO SCH (12:53)
[2022-03-17] MEDS: METHADONE 10MG TAB PO SCH (12:54)
[2022-03-17] MEDS: FLUDROCORTISONE ACETATE 0.1 MG TAB PO SCH (12:54)
[2022-03-17] MEDS: LABETALOL 100MG TAB PO SCH (12:58)
[2022-03-17 14:00] VITALS: BP 95/55
[2022-03-17 15:53] LABS: ALBUMIN 3.7 G/DL (3.2-5.2); CALCIUM LEVEL 9.2 MG/DL (8.5-10.1); CREATININE FOR GFR 4.89 MG/DL (0.70-1.30); PHOSPHORUS LEVEL 6.2 MG/DL (2.5-4.9); POTASSIUM SERUM 4.7 MMOL/L (3.5-5.1)
[2022-03-17 19:34] VITALS: BP 91/57
[2022-03-17] MEDS: fluvoxaMINE MALEATE 50 MG TAB PO SCH (20:10)
[2022-03-18 05:46] VITALS: BP 125/89
[2022-03-18 08:17] LABS: HEMATOCRIT 40.9 % (42.0-52.0); HEMOGLOBIN 12.8 g/dl (13.5-17.5); MEAN CORPUSCULAR HEMOGLOBIN 29.8 pg (27.0-33.0); MEAN CORPUSCULAR HGB CONC 31.3 g/dl (32.0-36.5); MEAN CORPUSCULAR VOLUME 95.1 fl (80.0-96.0); PLATELET COUNT, AUTOMATED 234 10^3/uL (150-450); WHITE BLOOD COUNT 7.5 10^3/uL (4.0-10.0)
[2022-03-18 08:51] LABS: ALBUMIN 3.8 G/DL (3.2-5.2); CALCIUM LEVEL 9.7 MG/DL (8.5-10.1); CREATININE FOR GFR 7.65 MG/DL (0.70-1.30); GLOMERULAR FILTRATION RATE 8.4 (>60); PHOSPHORUS LEVEL 8.9 MG/DL (2.5-4.9); POTASSIUM SERUM 5.8 MMOL/L (3.5-5.1)
[2022-03-18] MEDS: LABETALOL 100MG TAB PO SCH (09:00)
[2022-03-18] MEDS: QUEtiapine FUMARATE 25 MG TAB PO SCH ×2 (09:10→20:22)
[2022-03-18] MEDS: PANTOPRAZOLE 40MG TAB (PROTONIX) PO SCH (09:11)
[2022-03-18] MEDS: CYANOCOBALAMIN 500 MCG TAB PO SCH (09:12)
[2022-03-18] MEDS: METHADONE 10MG TAB PO SCH (09:12)
[2022-03-18] MEDS: THIAMINE 100 MG TAB PO SCH (09:12)
[2022-03-18] MEDS: HYDROCORTISONE 5MG TABLET PO SCH (09:19)
[2022-03-18] MEDS: FLUDROCORTISONE ACETATE 0.1 MG TAB PO SCH (09:19)
[2022-03-18] MEDS: PATIROMER SORBITEX CALCIUM 8.4 GM POWDER PACKET (VELTASSA) PO SCH (12:00)
[2022-03-18] MEDS: SUCROFERRIC OXYHYDROXIDE 500MG CHEW TAB (VELPHORO) PO SCH ×2 (12:23→17:39)
[2022-03-18 14:00] VITALS: BP 108/66
[2022-03-18] MEDS: fluvoxaMINE MALEATE 50 MG TAB PO SCH (20:22)
[2022-03-18 20:43] VITALS: BP 109/67
[2022-03-19 05:50] VITALS: BP 119/76
[2022-03-19 06:53] LABS: HEMATOCRIT 32.9 % (42.0-52.0); MEAN CORPUSCULAR HEMOGLOBIN 29.9 pg (27.0-33.0); MEAN CORPUSCULAR HGB CONC 32.2 g/dl (32.0-36.5); MEAN CORPUSCULAR VOLUME 92.9 fl (80.0-96.0); PLATELET COUNT, AUTOMATED 217 10^3/uL (150-450); RED BLOOD COUNT 3.54 10^6/uL (4.30-6.10); WHITE BLOOD COUNT 7.3 10^3/uL (4.0-10.0)
[2022-03-19] MEDS ORDERED: SODIUM CHLORIDE 0.9% 1000ML IV PRN (06:55)
[2022-03-19] MEDS ORDERED: LIDOCAINE 1% SDV 5ML VIAL SC PRN (06:55)
[2022-03-19] MEDS ORDERED: HEPARIN 1,000UNITS/ML 10ML VIAL (FOR RADIOLOGY & DIALYSIS ONLY) IV PRN (06:55)
[2022-03-19] MEDS ORDERED: HEPARIN 1,000UNITS/ML 10ML VIAL (FOR RADIOLOGY & DIALYSIS ONLY) XX SCH (06:55)
[2022-03-19 06:56] LABS: HEMOGLOBIN 10.6 g/dl (13.5-17.5)
[2022-03-19 07:11] LABS: ALBUMIN 3.3 G/DL (3.2-5.2); CALCIUM LEVEL 8.8 MG/DL (8.5-10.1); CREATININE FOR GFR 10.43 MG/DL (0.70-1.30); GLOMERULAR FILTRATION RATE 5.9 (>60); PHOSPHORUS LEVEL 9.6 MG/DL (2.5-4.9); POTASSIUM SERUM 5.3 MMOL/L (3.5-5.1)
[2022-03-19] MEDS: SUCROFERRIC OXYHYDROXIDE 500MG CHEW TAB (VELPHORO) PO SCH ×3 (08:00→17:12)
[2022-03-19] MEDS: PATIROMER SORBITEX CALCIUM 8.4 GM POWDER PACKET (VELTASSA) PO SCH (12:00)
[2022-03-19] MEDS: PANTOPRAZOLE 40MG TAB (PROTONIX) PO SCH (13:00)
[2022-03-19] MEDS: CYANOCOBALAMIN 500 MCG TAB PO SCH (13:01)
[2022-03-19] MEDS: QUEtiapine FUMARATE 25 MG TAB PO SCH ×2 (13:01→20:23)
[2022-03-19] MEDS: THIAMINE 100 MG TAB PO SCH (13:01)
[2022-03-19] MEDS: METHADONE 10MG TAB PO SCH (13:01)
[2022-03-19] MEDS: FLUDROCORTISONE ACETATE 0.1 MG TAB PO SCH (13:01)
[2022-03-19] MEDS: HYDROCORTISONE 5MG TABLET PO SCH (13:01)
[2022-03-19] MEDS: LABETALOL 100MG TAB PO SCH (13:06)
[2022-03-19 14:00] VITALS: BP 138/77
[2022-03-19] MEDS: fluvoxaMINE MALEATE 50 MG TAB PO SCH (20:23)
[2022-03-19 21:53] VITALS: BP 136/77
[2022-03-20 06:00] VITALS: BP 104/56
[2022-03-20 06:13] LABS: HEMATOCRIT 34.3 % (42.0-52.0); HEMOGLOBIN 10.8 g/dl (13.5-17.5); MEAN CORPUSCULAR HEMOGLOBIN 29.7 pg (27.0-33.0); MEAN CORPUSCULAR HGB CONC 31.5 g/dl (32.0-36.5); MEAN CORPUSCULAR VOLUME 94.2 fl (80.0-96.0); PLATELET COUNT, AUTOMATED 205 10^3/uL (150-450); RED BLOOD COUNT 3.64 10^6/uL (4.30-6.10)
[2022-03-20 06:42] LABS: ALBUMIN 3.3 G/DL (3.2-5.2); CREATININE FOR GFR 7.16 MG/DL (0.70-1.30); PHOSPHORUS LEVEL 7.2 MG/DL (2.5-4.9); POTASSIUM SERUM 5.1 MMOL/L (3.5-5.1)
[2022-03-20] MEDS: SUCROFERRIC OXYHYDROXIDE 500MG CHEW TAB (VELPHORO) PO SCH ×4 (08:00→17:36)
[2022-03-20] MEDS: FLUDROCORTISONE ACETATE 0.1 MG TAB PO SCH (09:09)
[2022-03-20] MEDS: HYDROCORTISONE 5MG TABLET PO SCH (09:10)
[2022-03-20] MEDS: CYANOCOBALAMIN 500 MCG TAB PO SCH (09:10)
[2022-03-20] MEDS: PANTOPRAZOLE 40MG TAB (PROTONIX) PO SCH (09:10)
[2022-03-20] MEDS: QUEtiapine FUMARATE 25 MG TAB PO SCH ×2 (09:10→20:23)
[2022-03-20] MEDS: METHADONE 10MG TAB PO SCH (09:10)
[2022-03-20] MEDS: THIAMINE 100 MG TAB PO SCH (09:10)
[2022-03-20] MEDS: LABETALOL 100MG TAB PO SCH (09:11)
[2022-03-20] MEDS: PATIROMER SORBITEX CALCIUM 8.4 GM POWDER PACKET (VELTASSA) PO SCH (12:00)
[2022-03-20 14:00] VITALS: BP 123/70
[2022-03-20] MEDS: fluvoxaMINE MALEATE 50 MG TAB PO SCH (20:23)
[2022-03-20 22:00] VITALS: BP 126/74
[2022-03-21 06:00] VITALS: BP 102/50
[2022-03-21 06:39] LABS: MEAN CORPUSCULAR HEMOGLOBIN 30.2 pg (27.0-33.0); MEAN CORPUSCULAR HGB CONC 32.3 g/dl (32.0-36.5); MEAN CORPUSCULAR VOLUME 93.7 fl (80.0-96.0); PLATELET COUNT, AUTOMATED 207 10^3/uL (150-450); RED BLOOD COUNT 3.31 10^6/uL (4.30-6.10); WHITE BLOOD COUNT 6.9 10^3/uL (4.0-10.0)
[2022-03-21 07:11] LABS: ALBUMIN 3.3 G/DL (3.2-5.2); CALCIUM LEVEL 8.2 MG/DL (8.5-10.1); CREATININE FOR GFR 9.57 MG/DL (0.70-1.30); GLOMERULAR FILTRATION RATE 6.4 (>60); PHOSPHORUS LEVEL 8.1 MG/DL (2.5-4.9); POTASSIUM SERUM 5.2 MMOL/L (3.5-5.1)
[2022-03-21] MEDS ORDERED: HEPARIN 1,000UNITS/ML 10ML VIAL (FOR RADIOLOGY & DIALYSIS ONLY) IV PRN (07:35)
[2022-03-21] MEDS ORDERED: HEPARIN 1,000UNITS/ML 10ML VIAL (FOR RADIOLOGY & DIALYSIS ONLY) XX SCH (07:35)
[2022-03-21] MEDS ORDERED: SODIUM CHLORIDE 0.9% 1000ML IV PRN (07:35)
[2022-03-21 08:00] VITALS: BP 154/83
[2022-03-21] MEDS: PATIROMER SORBITEX CALCIUM 8.4 GM POWDER PACKET (VELTASSA) PO SCH ×2 (12:00→12:25)
[2022-03-21] MEDS: SUCROFERRIC OXYHYDROXIDE 500MG CHEW TAB (VELPHORO) PO SCH ×3 (12:19→18:23)
[2022-03-21] MEDS: HYDROCORTISONE 5MG TABLET PO SCH (12:19)
[2022-03-21] MEDS: CYANOCOBALAMIN 500 MCG TAB PO SCH (12:19)
[2022-03-21] MEDS: METHADONE 10MG TAB PO SCH (12:20)
[2022-03-21] MEDS: FLUDROCORTISONE ACETATE 0.1 MG TAB PO SCH (12:22)
[2022-03-21] MEDS: THIAMINE 100 MG TAB PO SCH (12:22)
[2022-03-21] MEDS: QUEtiapine FUMARATE 25 MG TAB PO SCH ×2 (12:24→20:25)
[2022-03-21] MEDS: LABETALOL 100MG TAB PO SCH (12:24)
[2022-03-21] MEDS: PANTOPRAZOLE 40MG TAB (PROTONIX) PO SCH (12:24)
[2022-03-21 14:00] VITALS: BP 122/70
[2022-03-21 20:18] VITALS: BP 116/67
[2022-03-21] MEDS: fluvoxaMINE MALEATE 50 MG TAB PO SCH (20:25)
[2022-03-22 05:44] VITALS: BP 138/79
[2022-03-22 06:55] LABS: HEMATOCRIT 32.8 % (42.0-52.0); HEMOGLOBIN 10.4 g/dl (13.5-17.5); MEAN CORPUSCULAR HEMOGLOBIN 30.1 pg (27.0-33.0); MEAN CORPUSCULAR HGB CONC 31.7 g/dl (32.0-36.5); MEAN CORPUSCULAR VOLUME 95.1 fl (80.0-96.0); PLATELET COUNT, AUTOMATED 200 10^3/uL (150-450); RED BLOOD COUNT 3.45 10^6/uL (4.30-6.10); WHITE BLOOD COUNT 6.5 10^3/uL (4.0-10.0)
[2022-03-22 07:13] LABS: ALBUMIN 3.2 G/DL (3.2-5.2); CALCIUM LEVEL 8.4 MG/DL (8.5-10.1); CREATININE FOR GFR 7.06 MG/DL (0.70-1.30); GLOMERULAR FILTRATION RATE 9.1 (>60); PHOSPHORUS LEVEL 6.5 MG/DL (2.5-4.9); POTASSIUM SERUM 5.3 MMOL/L (3.5-5.1)
[2022-03-22] MEDS: PATIROMER SORBITEX CALCIUM 8.4 GM POWDER PACKET (VELTASSA) PO SCH (08:17)
[2022-03-22] MEDS: SUCROFERRIC OXYHYDROXIDE 500MG CHEW TAB (VELPHORO) PO SCH ×3 (10:12→17:56)
[2022-03-22] MEDS: QUEtiapine FUMARATE 25 MG TAB PO SCH ×2 (10:13→20:03)
[2022-03-22] MEDS: CYANOCOBALAMIN 500 MCG TAB PO SCH (10:13)
[2022-03-22] MEDS: METHADONE 10MG TAB PO SCH (10:16)
[2022-03-22] MEDS: THIAMINE 100 MG TAB PO SCH (10:16)
[2022-03-22] MEDS: HYDROCORTISONE 5MG TABLET PO SCH (10:16)
[2022-03-22] MEDS: LABETALOL 100MG TAB PO SCH (10:17)
[2022-03-22] MEDS: FLUDROCORTISONE ACETATE 0.1 MG TAB PO SCH (10:17)
[2022-03-22] MEDS: PANTOPRAZOLE 40MG TAB (PROTONIX) PO SCH (10:17)
[2022-03-22 14:24] VITALS: BP 127/61
[2022-03-22] MEDS: fluvoxaMINE MALEATE 50 MG TAB PO SCH (20:03)
[2022-03-22 20:38] VITALS: BP 124/66
[2022-03-23 06:23] VITALS: BP 138/78
[2022-03-23] MEDS ORDERED: HEPARIN 1,000UNITS/ML 10ML VIAL (FOR RADIOLOGY & DIALYSIS ONLY) XX SCH (06:45)
[2022-03-23] MEDS ORDERED: SODIUM CHLORIDE 0.9% 1000ML IV PRN (06:45)
[2022-03-23] MEDS ORDERED: HEPARIN 1,000UNITS/ML 10ML VIAL (FOR RADIOLOGY & DIALYSIS ONLY) IV PRN (06:45)
[2022-03-23 07:15] LABS: HEMOGLOBIN 9.8 g/dl (13.5-17.5); MEAN CORPUSCULAR HEMOGLOBIN 29.9 pg (27.0-33.0); MEAN CORPUSCULAR HGB CONC 31.6 g/dl (32.0-36.5); MEAN CORPUSCULAR VOLUME 94.5 fl (80.0-96.0); PLATELET COUNT, AUTOMATED 203 10^3/uL (150-450); RED BLOOD COUNT 3.28 10^6/uL (4.30-6.10); WHITE BLOOD COUNT 7.2 10^3/uL (4.0-10.0)
[2022-03-23 07:42] VITALS: BP 158/88
[2022-03-23 07:43] LABS: ALBUMIN 3.1 G/DL (3.2-5.2); CALCIUM LEVEL 7.9 MG/DL (8.5-10.1); CREATININE FOR GFR 9.61 MG/DL (0.70-1.30); GLOMERULAR FILTRATION RATE 6.4 (>60); PHOSPHORUS LEVEL 6.8 MG/DL (2.5-4.9); POTASSIUM SERUM 5.3 MMOL/L (3.5-5.1)
[2022-03-23] MEDS: SUCROFERRIC OXYHYDROXIDE 500MG CHEW TAB (VELPHORO) PO SCH ×3 (07:43→17:29)
[2022-03-23] MEDS: PATIROMER SORBITEX CALCIUM 8.4 GM POWDER PACKET (VELTASSA) PO SCH (12:00)
[2022-03-23] MEDS: CYANOCOBALAMIN 500 MCG TAB PO SCH (13:05)
[2022-03-23] MEDS: FLUDROCORTISONE ACETATE 0.1 MG TAB PO SCH (13:07)
[2022-03-23] MEDS: LABETALOL 100MG TAB PO SCH (13:09)
[2022-03-23] MEDS: PANTOPRAZOLE 40MG TAB (PROTONIX) PO SCH (13:10)
[2022-03-23] MEDS: HYDROCORTISONE 5MG TABLET PO SCH (13:11)
[2022-03-23] MEDS: METHADONE 10MG TAB PO SCH (13:12)
[2022-03-23] MEDS: QUEtiapine FUMARATE 25 MG TAB PO SCH ×2 (13:12→22:16)
[2022-03-23] MEDS: THIAMINE 100 MG TAB PO SCH (13:13)
[2022-03-23 14:00] VITALS: BP 140/84
[2022-03-23] MEDS ORDERED: fentaNYL 100 MCG/2 ML INJECTION IV PRN (21:05)
[2022-03-23] MEDS ORDERED: ONDANSETRON 4MG 2ML VIAL IV PRN (21:05)
[2022-03-23] MEDS ORDERED: MORPHINE 4 MG/ML 1ML VIAL IV PRN (22:10)
[2022-03-23] MEDS ORDERED: MORPHINE 2 MG/ML 1ML VIAL IV PRN (22:10)
[2022-03-23] MEDS: fluvoxaMINE MALEATE 50 MG TAB PO SCH (22:16)
[2022-03-23 22:18] VITALS: BP 101/61
[2022-03-23 23:02] VITALS: BP 123/71
[2022-03-24] VITALS: BP 123/74
[2022-03-24 01:00] VITALS: BP 110/64
[2022-03-24] MEDS: ACETAMINOPHEN TAB 650MG DOSE (2X325MG) PO PRN (01:10)
[2022-03-24 02:00] VITALS: BP 112/62
[2022-03-24 05:50] VITALS: BP 108/67
[2022-03-24] MEDS ORDERED: HEPARIN 1,000UNITS/ML 10ML VIAL (FOR RADIOLOGY & DIALYSIS ONLY) XX SCH (06:00)
[2022-03-24] MEDS ORDERED: SODIUM CHLORIDE 0.9% 1000ML IV PRN (06:00)
[2022-03-24] MEDS ORDERED: HEPARIN 1,000UNITS/ML 10ML VIAL (FOR RADIOLOGY & DIALYSIS ONLY) IV PRN (06:00)
[2022-03-24 06:55] LABS: BASO % 0.1 % (0.0-1.0); HEMATOCRIT 32.1 % (42.0-52.0); HEMOGLOBIN 10.3 g/dl (13.5-17.5); LYMPH # 0.6 10^3/uL (1.5-5.0); LYMPH % 4.9 % (24.0-44.0); MEAN CORPUSCULAR HGB CONC 32.1 g/dl (32.0-36.5); MEAN CORPUSCULAR VOLUME 93.6 fl (80.0-96.0); MONO # 0.4 10^3/uL (0.0-0.8); MONO % 3.3 % (2.0-8.0); NEUTROPHILS % 91.3 % (36.0-66.0); PLATELET COUNT, AUTOMATED 209 10^3/uL (150-450); RED BLOOD COUNT 3.43 10^6/uL (4.30-6.10); WHITE BLOOD COUNT 12.1 10^3/uL (4.0-10.0)
[2022-03-24 07:21] LABS: CALCIUM LEVEL 8.2 MG/DL (8.5-10.1); CREATININE FOR GFR 7.3 MG/DL (0.70-1.30); GLOMERULAR FILTRATION RATE 8.8 (>60); POTASSIUM SERUM 6.1 MMOL/L (3.5-5.1)
[2022-03-24] MEDS: SUCROFERRIC OXYHYDROXIDE 500MG CHEW TAB (VELPHORO) PO SCH ×3 (08:00→18:11)
[2022-03-24] MEDS: HYDROCORTISONE 5MG TABLET PO SCH (12:13)
[2022-03-24] MEDS: THIAMINE 100 MG TAB PO SCH (12:13)
[2022-03-24] MEDS: PATIROMER SORBITEX CALCIUM 8.4 GM POWDER PACKET (VELTASSA) PO SCH (12:13)
[2022-03-24] MEDS: PANTOPRAZOLE 40MG TAB (PROTONIX) PO SCH (12:13)
[2022-03-24] MEDS: CYANOCOBALAMIN 500 MCG TAB PO SCH (12:14)
[2022-03-24] MEDS: METHADONE 10MG TAB PO SCH (12:14)
[2022-03-24] MEDS: LABETALOL 100MG TAB PO SCH (12:14)
[2022-03-24] MEDS: FLUDROCORTISONE ACETATE 0.1 MG TAB PO SCH (12:14)
[2022-03-24] MEDS: QUEtiapine FUMARATE 25 MG TAB PO SCH ×2 (12:14→22:13)
[2022-03-24 14:00] VITALS: BP 115/67
[2022-03-24 22:03] VITALS: BP 116/67
[2022-03-24] MEDS: fluvoxaMINE MALEATE 50 MG TAB PO SCH (22:13)
[2022-03-25 04:41] VITALS: BP 110/71
[2022-03-25] MEDS ORDERED: oxyCODONE 5MG TAB PO ONE (05:55)
[2022-03-25 06:15] LABS: BASO # 0.1 10^3/uL (0.0-0.2); BASO % 0.5 % (0.0-1.0); EOS % 0.4 % (0.0-3.0); HEMATOCRIT 33.4 % (42.0-52.0); HEMOGLOBIN 10.6 g/dl (13.5-17.5); LYMPH # 1.7 10^3/uL (1.5-5.0); LYMPH % 15.8 % (24.0-44.0); MEAN CORPUSCULAR HEMOGLOBIN 29.8 pg (27.0-33.0); MEAN CORPUSCULAR HGB CONC 31.7 g/dl (32.0-36.5); MEAN CORPUSCULAR VOLUME 93.8 fl (80.0-96.0); MONO # 0.9 10^3/uL (0.0-0.8); MONO % 8.7 % (2.0-8.0); NEUTROPHILS # 7.9 10^3/uL (1.5-8.5); NEUTROPHILS % 74.4 % (36.0-66.0); PLATELET COUNT, AUTOMATED 211 10^3/uL (150-450); RED BLOOD COUNT 3.56 10^6/uL (4.30-6.10); WHITE BLOOD COUNT 10.6 10^3/uL (4.0-10.0)
[2022-03-25 06:43] LABS: CALCIUM LEVEL 9.1 MG/DL (8.5-10.1); CREATININE FOR GFR 6.43 MG/DL (0.70-1.30); GLOMERULAR FILTRATION RATE 10.2 (>60)
[2022-03-25] MEDS: SUCROFERRIC OXYHYDROXIDE 500MG CHEW TAB (VELPHORO) PO SCH ×3 (08:00→18:00)
[2022-03-25] MEDS: LABETALOL 100MG TAB PO SCH (09:00)
[2022-03-25] MEDS: HYDROCORTISONE 5MG TABLET PO SCH (11:13)
[2022-03-25] MEDS: CYANOCOBALAMIN 500 MCG TAB PO SCH (11:14)
[2022-03-25] MEDS: FLUDROCORTISONE ACETATE 0.1 MG TAB PO SCH (11:15)
[2022-03-25] MEDS: QUEtiapine FUMARATE 25 MG TAB PO SCH ×2 (11:15→20:17)
[2022-03-25] MEDS: THIAMINE 100 MG TAB PO SCH (11:16)
[2022-03-25] MEDS: METHADONE 10MG TAB PO SCH (11:16)
[2022-03-25] MEDS: PANTOPRAZOLE 40MG TAB (PROTONIX) PO SCH (11:16)
[2022-03-25] MEDS: PATIROMER SORBITEX CALCIUM 8.4 GM POWDER PACKET (VELTASSA) PO SCH (11:17)
[2022-03-25 14:00] VITALS: BP 120/66
[2022-03-25] MEDS: PERCOCET 5MG/325MG TAB PO PRN ×2 (17:03→23:14)
[2022-03-25] MEDS: fluvoxaMINE MALEATE 50 MG TAB PO SCH (20:17)
[2022-03-25 21:21] VITALS: BP 119/65
[2022-03-26] MEDS ORDERED: HEPARIN 1,000UNITS/ML 10ML VIAL (FOR RADIOLOGY & DIALYSIS ONLY) IV PRN (06:00)
[2022-03-26] MEDS ORDERED: SODIUM CHLORIDE 0.9% 1000ML IV PRN (06:00)
[2022-03-26 06:11] VITALS: BP 114/63
[2022-03-26 06:21] LABS: BASO # 0.1 10^3/uL (0.0-0.2); BASO % 0.9 % (0.0-1.0); EOS # 0.1 10^3/uL (0.0-0.5); EOS % 1.1 % (0.0-3.0); HEMATOCRIT 31.3 % (42.0-52.0); HEMOGLOBIN 9.7 g/dl (13.5-17.5); LYMPH # 1.8 10^3/uL (1.5-5.0); LYMPH % 22.8 % (24.0-44.0); MEAN CORPUSCULAR HEMOGLOBIN 29.6 pg (27.0-33.0); MEAN CORPUSCULAR VOLUME 95.4 fl (80.0-96.0); MONO # 0.8 10^3/uL (0.0-0.8); MONO % 9.5 % (2.0-8.0); NEUTROPHILS # 5.2 10^3/uL (1.5-8.5); NEUTROPHILS % 65.3 % (36.0-66.0); PLATELET COUNT, AUTOMATED 212 10^3/uL (150-450); RED BLOOD COUNT 3.28 10^6/uL (4.30-6.10)
[2022-03-26 06:58] LABS: CALCIUM LEVEL 7.9 MG/DL (8.5-10.1); CREATININE FOR GFR 9.06 MG/DL (0.70-1.30); GLOMERULAR FILTRATION RATE 6.9 (>60); PHOSPHORUS LEVEL 7.5 MG/DL (2.5-4.9)
[2022-03-26] MEDS: SUCROFERRIC OXYHYDROXIDE 500MG CHEW TAB (VELPHORO) PO SCH ×3 (08:00→18:43)
[2022-03-26] MEDS ORDERED: HEPARIN 1,000UNITS/ML 10ML VIAL (FOR RADIOLOGY & DIALYSIS ONLY) XX SCH (08:20)
[2022-03-26] MEDS: PATIROMER SORBITEX CALCIUM 8.4 GM POWDER PACKET (VELTASSA) PO SCH (13:59)
[2022-03-26 14:00] VITALS: BP 102/61
[2022-03-26] MEDS: HEPARIN SOD (PORCINE) 5000UNITS/ML 1ML VIAL/SYRINGE SQ SCH ×3 (14:00→21:47)
[2022-03-26] MEDS: CYANOCOBALAMIN 500 MCG TAB PO SCH (14:13)
[2022-03-26] MEDS: HYDROCORTISONE 5MG TABLET PO SCH (14:14)
[2022-03-26] MEDS: THIAMINE 100 MG TAB PO SCH (14:14)
[2022-03-26] MEDS: QUEtiapine FUMARATE 25 MG TAB PO SCH (14:15)
[2022-03-26] MEDS: FLUDROCORTISONE ACETATE 0.1 MG TAB PO SCH (14:15)
[2022-03-26] MEDS: METHADONE 10MG TAB PO SCH (14:15)
[2022-03-26] MEDS: PANTOPRAZOLE 40MG TAB (PROTONIX) PO SCH (14:15)
[2022-03-26] MEDS: LABETALOL 100MG TAB PO SCH (14:17)
[2022-03-26] MEDS ORDERED: OLANZapine ORAL DISINTEGRATING TAB 5MG PO PRN (17:25)
[2022-03-26] MEDS: PERCOCET 5MG/325MG TAB PO PRN (18:43)
[2022-03-26] MEDS: OLANZapine 2.5MG TABLET PO SCH (21:46)
[2022-03-26] MEDS: fluvoxaMINE MALEATE 50 MG TAB PO SCH (21:46)
[2022-03-26 21:50] VITALS: BP 102/63
[2022-03-27] MEDS: HEPARIN SOD (PORCINE) 5000UNITS/ML 1ML VIAL/SYRINGE SQ SCH ×3 (05:29→21:24)
[2022-03-27 06:05] LABS: BASO # 0.1 10^3/uL (0.0-0.2); BASO % 0.7 % (0.0-1.0); EOS # 0.2 10^3/uL (0.0-0.5); HEMATOCRIT 35.6 % (42.0-52.0); HEMOGLOBIN 11.5 g/dl (13.5-17.5); LYMPH # 2.3 10^3/uL (1.5-5.0); LYMPH % 25.7 % (24.0-44.0); MEAN CORPUSCULAR HEMOGLOBIN 29.8 pg (27.0-33.0); MEAN CORPUSCULAR HGB CONC 32.3 g/dl (32.0-36.5); MEAN CORPUSCULAR VOLUME 92.2 fl (80.0-96.0); MONO % 11.2 % (2.0-8.0); NEUTROPHILS # 5.3 10^3/uL (1.5-8.5); NEUTROPHILS % 60.2 % (36.0-66.0); PLATELET COUNT, AUTOMATED 222 10^3/uL (150-450); RED BLOOD COUNT 3.86 10^6/uL (4.30-6.10); WHITE BLOOD COUNT 8.8 10^3/uL (4.0-10.0)
[2022-03-27 06:20] VITALS: BP 98/61
[2022-03-27 06:26] LABS: CALCIUM LEVEL 8.9 MG/DL (8.5-10.1); CREATININE FOR GFR 6.79 MG/DL (0.70-1.30); GLOMERULAR FILTRATION RATE 9.6 (>60); POTASSIUM SERUM 4.3 MMOL/L (3.5-5.1)
[2022-03-27] MEDS: LABETALOL 100MG TAB PO SCH (09:00)
[2022-03-27] MEDS: SUCROFERRIC OXYHYDROXIDE 500MG CHEW TAB (VELPHORO) PO SCH ×3 (09:25→18:50)
[2022-03-27] MEDS: FLUDROCORTISONE ACETATE 0.1 MG TAB PO SCH (09:26)
[2022-03-27] MEDS: OLANZapine 2.5MG TABLET PO SCH ×2 (09:26→21:19)
[2022-03-27] MEDS: PANTOPRAZOLE 40MG TAB (PROTONIX) PO SCH (09:26)
[2022-03-27] MEDS: CYANOCOBALAMIN 500 MCG TAB PO SCH (09:26)
[2022-03-27] MEDS: HYDROCORTISONE 5MG TABLET PO SCH (09:26)
[2022-03-27] MEDS: METHADONE 10MG TAB PO SCH (09:26)
[2022-03-27] MEDS: THIAMINE 100 MG TAB PO SCH (09:26)
[2022-03-27 12:00] VITALS: BP 95/56
[2022-03-27] MEDS: PATIROMER SORBITEX CALCIUM 8.4 GM POWDER PACKET (VELTASSA) PO SCH (12:00)
[2022-03-27 21:00] VITALS: BP 90/49
[2022-03-27] MEDS: fluvoxaMINE MALEATE 50 MG TAB PO SCH (21:20)
[2022-03-27 22:05] VITALS: BP 106/64
[2022-03-27 23:45] VITALS: BP 102/40
[2022-03-28] MEDS: HEPARIN SOD (PORCINE) 5000UNITS/ML 1ML VIAL/SYRINGE SQ SCH ×3 (05:11→22:18)
[2022-03-28] MEDS ORDERED: HEPARIN 1,000UNITS/ML 10ML VIAL (FOR RADIOLOGY & DIALYSIS ONLY) XX SCH (06:00)
[2022-03-28] MEDS ORDERED: SODIUM CHLORIDE 0.9% 1000ML IV PRN (06:00)
[2022-03-28] MEDS ORDERED: HEPARIN 1,000UNITS/ML 10ML VIAL (FOR RADIOLOGY & DIALYSIS ONLY) IV PRN (06:00)
[2022-03-28 06:17] LABS: HEMOGLOBIN 9.6 g/dl (13.5-17.5); MEAN CORPUSCULAR HEMOGLOBIN 29.7 pg (27.0-33.0); MEAN CORPUSCULAR VOLUME 92.9 fl (80.0-96.0); PLATELET COUNT, AUTOMATED 217 10^3/uL (150-450); RED BLOOD COUNT 3.23 10^6/uL (4.30-6.10); WHITE BLOOD COUNT 9.4 10^3/uL (4.0-10.0)
[2022-03-28 06:49] LABS: ALBUMIN 3.3 G/DL (3.2-5.2); BILIRUBIN,TOTAL 0.2 MG/DL (0.3-1.2); CALCIUM LEVEL 8.4 MG/DL (8.5-10.1); CREATININE FOR GFR 9.94 MG/DL (0.70-1.30); GLOMERULAR FILTRATION RATE 6.2 (>60); POTASSIUM SERUM 4.6 MMOL/L (3.5-5.1); TOTAL PROTEIN 6.6 G/DL (5.7-8.2)
[2022-03-28] MEDS: SUCROFERRIC OXYHYDROXIDE 500MG CHEW TAB (VELPHORO) PO SCH ×3 (09:17→17:43)
[2022-03-28] MEDS: PATIROMER SORBITEX CALCIUM 8.4 GM POWDER PACKET (VELTASSA) PO SCH (12:00)
[2022-03-28] MEDS: METHADONE 10MG TAB PO SCH (12:57)
[2022-03-28] MEDS: PANTOPRAZOLE 40MG TAB (PROTONIX) PO SCH (12:58)
[2022-03-28] MEDS: THIAMINE 100 MG TAB PO SCH (12:58)
[2022-03-28] MEDS: HYDROCORTISONE 5MG TABLET PO SCH (12:58)
[2022-03-28] MEDS: OLANZapine 2.5MG TABLET PO SCH ×2 (12:58→22:18)
[2022-03-28] MEDS: CYANOCOBALAMIN 500 MCG TAB PO SCH (12:59)
[2022-03-28] MEDS: FLUDROCORTISONE ACETATE 0.1 MG TAB PO SCH (13:12)
[2022-03-28] MEDS: fluvoxaMINE MALEATE 50 MG TAB PO SCH (22:18)
[2022-03-28 23:28] VITALS: BP 103/59
[2022-03-29 05:38] VITALS: BP_SYST 68
[2022-03-29] MEDS: HEPARIN SOD (PORCINE) 5000UNITS/ML 1ML VIAL/SYRINGE SQ SCH ×3 (05:55→20:52)
[2022-03-29 06:31] LABS: HEMATOCRIT 31.9 % (42.0-52.0); HEMOGLOBIN 10.2 g/dl (13.5-17.5); MEAN CORPUSCULAR HEMOGLOBIN 29.7 pg (27.0-33.0); MEAN CORPUSCULAR VOLUME 92.7 fl (80.0-96.0); PLATELET COUNT, AUTOMATED 210 10^3/uL (150-450); RED BLOOD COUNT 3.44 10^6/uL (4.30-6.10)
[2022-03-29 07:15] LABS: ALBUMIN 3.1 G/DL (3.2-5.2); BILIRUBIN,TOTAL 0.3 MG/DL (0.3-1.2); CALCIUM LEVEL 8.7 MG/DL (8.5-10.1); CREATININE FOR GFR 7.21 MG/DL (0.70-1.30); GLOMERULAR FILTRATION RATE 8.9 (>60); POTASSIUM SERUM 4.3 MMOL/L (3.5-5.1); TOTAL PROTEIN 6.7 G/DL (5.7-8.2)
[2022-03-29] MEDS: OLANZapine 2.5MG TABLET PO SCH ×2 (09:39→20:51)
[2022-03-29] MEDS: THIAMINE 100 MG TAB PO SCH (09:39)
[2022-03-29] MEDS: PERCOCET 5MG/325MG TAB PO PRN ×2 (09:39→14:15)
[2022-03-29] MEDS: HYDROCORTISONE 5MG TABLET PO SCH (09:39)
[2022-03-29] MEDS: CYANOCOBALAMIN 500 MCG TAB PO SCH (09:40)
[2022-03-29] MEDS: PANTOPRAZOLE 40MG TAB (PROTONIX) PO SCH (09:40)
[2022-03-29] MEDS: METHADONE 10MG TAB PO SCH (09:40)
[2022-03-29] MEDS: FLUDROCORTISONE ACETATE 0.1 MG TAB PO SCH (09:40)
[2022-03-29] MEDS: SUCROFERRIC OXYHYDROXIDE 500MG CHEW TAB (VELPHORO) PO SCH ×3 (09:44→17:37)
[2022-03-29] MEDS: PATIROMER SORBITEX CALCIUM 8.4 GM POWDER PACKET (VELTASSA) PO SCH (12:00)
[2022-03-29 14:00] VITALS: BP 100/56
[2022-03-29] MEDS: ACETAMINOPHEN TAB 650MG DOSE (2X325MG) PO PRN (17:37)
[2022-03-29] MEDS: fluvoxaMINE MALEATE 50 MG TAB PO SCH (20:51)
[2022-03-30] MEDS: HEPARIN SOD (PORCINE) 5000UNITS/ML 1ML VIAL/SYRINGE SQ SCH ×3 (05:39→21:33)
[2022-03-30] MEDS ORDERED: SODIUM CHLORIDE 0.9% 1000ML IV PRN (06:00)
[2022-03-30] MEDS ORDERED: HEPARIN 1,000UNITS/ML 10ML VIAL (FOR RADIOLOGY & DIALYSIS ONLY) XX SCH (06:00)
[2022-03-30] MEDS ORDERED: HEPARIN 1,000UNITS/ML 10ML VIAL (FOR RADIOLOGY & DIALYSIS ONLY) IV PRN (06:00)
[2022-03-30 06:05] VITALS: BP 109/67
[2022-03-30 06:24] LABS: HEMATOCRIT 28.4 % (42.0-52.0); HEMOGLOBIN 9.4 g/dl (13.5-17.5); MEAN CORPUSCULAR HEMOGLOBIN 30.4 pg (27.0-33.0); MEAN CORPUSCULAR HGB CONC 33.1 g/dl (32.0-36.5); MEAN CORPUSCULAR VOLUME 91.9 fl (80.0-96.0); PLATELET COUNT, AUTOMATED 211 10^3/uL (150-450); RED BLOOD COUNT 3.09 10^6/uL (4.30-6.10); WHITE BLOOD COUNT 7.9 10^3/uL (4.0-10.0)
[2022-03-30 07:13] LABS: ALBUMIN 2.9 G/DL (3.2-5.2); BILIRUBIN,TOTAL 0.2 MG/DL (0.3-1.2); CALCIUM LEVEL 8.1 MG/DL (8.5-10.1); CREATININE FOR GFR 9.72 MG/DL (0.70-1.30); GLOMERULAR FILTRATION RATE 6.3 (>60); PHOSPHORUS LEVEL 6.2 MG/DL (2.5-4.9); TOTAL PROTEIN 6.1 G/DL (5.7-8.2)
[2022-03-30] MEDS: SUCROFERRIC OXYHYDROXIDE 500MG CHEW TAB (VELPHORO) PO SCH ×4 (08:00→17:49)
[2022-03-30] MEDS: PATIROMER SORBITEX CALCIUM 8.4 GM POWDER PACKET (VELTASSA) PO SCH (12:00)
[2022-03-30] MEDS: CYANOCOBALAMIN 500 MCG TAB PO SCH (12:53)
[2022-03-30] MEDS: OLANZapine 2.5MG TABLET PO SCH ×2 (12:53→20:14)
[2022-03-30] MEDS: FLUDROCORTISONE ACETATE 0.1 MG TAB PO SCH (12:54)
[2022-03-30] MEDS: HYDROCORTISONE 5MG TABLET PO SCH (12:54)
[2022-03-30] MEDS: METHADONE 10MG TAB PO SCH (12:54)
[2022-03-30] MEDS: PANTOPRAZOLE 40MG TAB (PROTONIX) PO SCH (12:54)
[2022-03-30] MEDS: THIAMINE 100 MG TAB PO SCH (12:54)
[2022-03-30] MEDS: fluvoxaMINE MALEATE 50 MG TAB PO SCH (20:14)
[2022-03-31 06:11] VITALS: BP 127/70
[2022-03-31] MEDS: HEPARIN SOD (PORCINE) 5000UNITS/ML 1ML VIAL/SYRINGE SQ SCH ×3 (06:49→20:08)
[2022-03-31 07:02] LABS: HEMATOCRIT 27.6 % (42.0-52.0); MEAN CORPUSCULAR HEMOGLOBIN 29.6 pg (27.0-33.0); MEAN CORPUSCULAR HGB CONC 32.6 g/dl (32.0-36.5); MEAN CORPUSCULAR VOLUME 90.8 fl (80.0-96.0); PLATELET COUNT, AUTOMATED 194 10^3/uL (150-450); RED BLOOD COUNT 3.04 10^6/uL (4.30-6.10); WHITE BLOOD COUNT 6.4 10^3/uL (4.0-10.0)
[2022-03-31 07:34] LABS: ALBUMIN 2.8 G/DL (3.2-5.2); BILIRUBIN,TOTAL 0.2 MG/DL (0.3-1.2); CALCIUM LEVEL 8.5 MG/DL (8.5-10.1); CREATININE FOR GFR 6.92 MG/DL (0.70-1.30); GLOMERULAR FILTRATION RATE 9.4 (>60); POTASSIUM SERUM 4.3 MMOL/L (3.5-5.1)
[2022-03-31] MEDS: FLUDROCORTISONE ACETATE 0.1 MG TAB PO SCH (09:15)
[2022-03-31] MEDS: HYDROCORTISONE 5MG TABLET PO SCH (09:15)
[2022-03-31] MEDS: CYANOCOBALAMIN 500 MCG TAB PO SCH (09:15)
[2022-03-31] MEDS: SUCROFERRIC OXYHYDROXIDE 500MG CHEW TAB (VELPHORO) PO SCH ×3 (09:15→18:09)
[2022-03-31] MEDS: OLANZapine 2.5MG TABLET PO SCH ×2 (09:15→20:05)
[2022-03-31] MEDS: PANTOPRAZOLE 40MG TAB (PROTONIX) PO SCH (09:16)
[2022-03-31] MEDS: METHADONE 10MG TAB PO SCH (09:16)
[2022-03-31] MEDS: THIAMINE 100 MG TAB PO SCH (09:16)
[2022-03-31] MEDS: PATIROMER SORBITEX CALCIUM 8.4 GM POWDER PACKET (VELTASSA) PO SCH (12:00)
[2022-03-31] MEDS: fluvoxaMINE MALEATE 50 MG TAB PO SCH (20:07)
[2022-04-01] MEDS: HEPARIN SOD (PORCINE) 5000UNITS/ML 1ML VIAL/SYRINGE SQ SCH ×3 (05:14→20:32)
[2022-04-01 06:00] VITALS: BP 148/95
[2022-04-01 07:10] LABS: HEMATOCRIT 26.7 % (42.0-52.0); HEMOGLOBIN 8.5 g/dl (13.5-17.5); MEAN CORPUSCULAR HEMOGLOBIN 29.9 pg (27.0-33.0); MEAN CORPUSCULAR HGB CONC 31.8 g/dl (32.0-36.5); PLATELET COUNT, AUTOMATED 176 10^3/uL (150-450); RED BLOOD COUNT 2.84 10^6/uL (4.30-6.10); WHITE BLOOD COUNT 6.3 10^3/uL (4.0-10.0)
[2022-04-01] MEDS: SUCROFERRIC OXYHYDROXIDE 500MG CHEW TAB (VELPHORO) PO SCH ×3 (10:24→18:18)
[2022-04-01] MEDS: HYDROCORTISONE 5MG TABLET PO SCH (10:25)
[2022-04-01] MEDS: CYANOCOBALAMIN 500 MCG TAB PO SCH (10:25)
[2022-04-01] MEDS: THIAMINE 100 MG TAB PO SCH (10:26)
[2022-04-01] MEDS: METHADONE 10MG TAB PO SCH (10:26)
[2022-04-01] MEDS: PANTOPRAZOLE 40MG TAB (PROTONIX) PO SCH (10:27)
[2022-04-01] MEDS: OLANZapine 2.5MG TABLET PO SCH ×2 (10:30→20:29)
[2022-04-01] MEDS: FLUDROCORTISONE ACETATE 0.1 MG TAB PO SCH (10:30)
[2022-04-01] MEDS: PATIROMER SORBITEX CALCIUM 8.4 GM POWDER PACKET (VELTASSA) PO SCH (12:00)
[2022-04-01] MEDS: fluvoxaMINE MALEATE 50 MG TAB PO SCH (20:29)
[2022-04-02] MEDS: HEPARIN SOD (PORCINE) 5000UNITS/ML 1ML VIAL/SYRINGE SQ SCH ×3 (05:02→21:04)
[2022-04-02 06:00] VITALS: BP_SYST 132; BP_SYST 148; BP_DIAS 92; BP_DIAS 93
[2022-04-02 06:12] LABS: HEMATOCRIT 25.4 % (42.0-52.0); HEMOGLOBIN 8.1 g/dl (13.5-17.5); MEAN CORPUSCULAR HEMOGLOBIN 29.8 pg (27.0-33.0); MEAN CORPUSCULAR HGB CONC 31.9 g/dl (32.0-36.5); MEAN CORPUSCULAR VOLUME 93.4 fl (80.0-96.0); PLATELET COUNT, AUTOMATED 203 10^3/uL (150-450); RED BLOOD COUNT 2.72 10^6/uL (4.30-6.10); WHITE BLOOD COUNT 6.7 10^3/uL (4.0-10.0)
[2022-04-02] MEDS ORDERED: HEPARIN 1,000UNITS/ML 10ML VIAL (FOR RADIOLOGY & DIALYSIS ONLY) IV PRN (06:40)
[2022-04-02] MEDS ORDERED: HEPARIN 1,000UNITS/ML 10ML VIAL (FOR RADIOLOGY & DIALYSIS ONLY) XX SCH (06:40)
[2022-04-02] MEDS ORDERED: SODIUM CHLORIDE 0.9% 1000ML IV PRN (06:40)
[2022-04-02 06:42] LABS: ALBUMIN 2.6 G/DL (3.2-5.2); ALKALINE PHOSPHATASE 121 U/L (46-116); ALT/SGPT 10 U/L (7.0-40); AST/SGOT < 8 U/L (<34); BILIRUBIN,TOTAL < 0.2 MG/DL (0.3-1.2); BLOOD UREA NITROGEN 62 MG/DL (9-23); CALCIUM LEVEL 7.7 MG/DL (8.5-10.1); CARBON DIOXIDE LEVEL 22 MMOL/L (20-31); CHLORIDE LEVEL 107 MMOL/L (98-107); CREATININE FOR GFR 11.25 MG/DL (0.70-1.30); GLOMERULAR FILTRATION RATE 5.3 (>60); GLUCOSE, FASTING 122 MG/DL (60-100); POTASSIUM SERUM 4.4 MMOL/L (3.5-5.1); SODIUM LEVEL 139 MMOL/L (136-145); TOTAL PROTEIN 5.5 G/DL (5.7-8.2)
[2022-04-02 07:25] LABS: IRON (FE) 93 UG/DL (65-175); PERCENT SATURATION 47.4 % (19.7-50.0); TOTAL IRON BINDING CAPACITY 196 UG/DL (250-425)
[2022-04-02] MEDS: SUCROFERRIC OXYHYDROXIDE 500MG CHEW TAB (VELPHORO) PO SCH ×3 (07:29→17:04)
[2022-04-02] MEDS: IRON SUCROSE 100MG 5ML VIAL IV SCH (09:24)
[2022-04-02] MEDS: DARBEPOETIN 200MCG/0.4ML *DIALYSIS* SYRINGE IV SCH (10:36)
[2022-04-02] MEDS: PATIROMER SORBITEX CALCIUM 8.4 GM POWDER PACKET (VELTASSA) PO SCH ×2 (12:00→13:09)
[2022-04-02] MEDS: FLUDROCORTISONE ACETATE 0.1 MG TAB PO SCH (13:09)
[2022-04-02] MEDS: OLANZapine 2.5MG TABLET PO SCH ×2 (13:09→21:05)
[2022-04-02] MEDS: HYDROCORTISONE 5MG TABLET PO SCH (13:10)
[2022-04-02] MEDS: CYANOCOBALAMIN 500 MCG TAB PO SCH (13:10)
[2022-04-02] MEDS: THIAMINE 100 MG TAB PO SCH (13:10)
[2022-04-02] MEDS: PANTOPRAZOLE 40MG TAB (PROTONIX) PO SCH (13:10)
[2022-04-02] MEDS: METHADONE 10MG TAB PO SCH (13:10)
[2022-04-02 19:57] VITALS: BP 143/74
[2022-04-02] MEDS: fluvoxaMINE MALEATE 50 MG TAB PO SCH (21:05)
[2022-04-02] MEDS: PERCOCET 5MG/325MG TAB PO PRN (21:09)
[2022-04-03] MEDS: PERCOCET 5MG/325MG TAB PO PRN ×2 (02:28→09:43)
[2022-04-03 06:00] VITALS: BP 143/74
[2022-04-03] MEDS: HEPARIN SOD (PORCINE) 5000UNITS/ML 1ML VIAL/SYRINGE SQ SCH ×3 (06:03→21:01)
[2022-04-03 06:07] LABS: HEMATOCRIT 26.5 % (42.0-52.0); HEMOGLOBIN 8.4 g/dl (13.5-17.5); MEAN CORPUSCULAR HEMOGLOBIN 29.3 pg (27.0-33.0); MEAN CORPUSCULAR HGB CONC 31.7 g/dl (32.0-36.5); MEAN CORPUSCULAR VOLUME 92.3 fl (80.0-96.0); PLATELET COUNT, AUTOMATED 155 10^3/uL (150-450); RED BLOOD COUNT 2.87 10^6/uL (4.30-6.10); WHITE BLOOD COUNT 6.4 10^3/uL (4.0-10.0)
[2022-04-03 07:10] LABS: ALBUMIN 2.7 G/DL (3.2-5.2); ALKALINE PHOSPHATASE 121 U/L (46-116); ALT/SGPT 12 U/L (7.0-40); AST/SGOT < 8 U/L (<34); BILIRUBIN,TOTAL < 0.2 MG/DL (0.3-1.2); BLOOD UREA NITROGEN 31 MG/DL (9-23); CALCIUM LEVEL 8.3 MG/DL (8.5-10.1); CARBON DIOXIDE LEVEL 21 MMOL/L (20-31); CHLORIDE LEVEL 107 MMOL/L (98-107); CREATININE FOR GFR 7.25 MG/DL (0.70-1.30); GLOMERULAR FILTRATION RATE 8.9 (>60); GLUCOSE, FASTING 115 MG/DL (60-100); PHOSPHORUS LEVEL 3.8 MG/DL (2.5-4.9); POTASSIUM SERUM 4.2 MMOL/L (3.5-5.1); SODIUM LEVEL 137 MMOL/L (136-145); TOTAL PROTEIN 5.8 G/DL (5.7-8.2)
[2022-04-03] MEDS: SUCROFERRIC OXYHYDROXIDE 500MG CHEW TAB (VELPHORO) PO SCH ×3 (09:36→17:53)
[2022-04-03] MEDS: THIAMINE 100 MG TAB PO SCH (09:36)
[2022-04-03] MEDS: FLUDROCORTISONE ACETATE 0.1 MG TAB PO SCH (09:37)
[2022-04-03] MEDS: METHADONE 10MG TAB PO SCH (09:37)
[2022-04-03] MEDS: OLANZapine 2.5MG TABLET PO SCH ×2 (09:37→21:00)
[2022-04-03] MEDS: HYDROCORTISONE 5MG TABLET PO SCH (09:37)
[2022-04-03] MEDS: CYANOCOBALAMIN 500 MCG TAB PO SCH (09:37)
[2022-04-03] MEDS: PANTOPRAZOLE 40MG TAB (PROTONIX) PO SCH (09:37)
[2022-04-03] MEDS: PATIROMER SORBITEX CALCIUM 8.4 GM POWDER PACKET (VELTASSA) PO SCH (12:00)
[2022-04-03] MEDS: fluvoxaMINE MALEATE 50 MG TAB PO SCH (21:00)
[2022-04-04 01:51] VITALS: BP 142/77
[2022-04-04] MEDS: HEPARIN SOD (PORCINE) 5000UNITS/ML 1ML VIAL/SYRINGE SQ SCH ×3 (05:33→20:49)
[2022-04-04] MEDS ORDERED: HEPARIN 1,000UNITS/ML 10ML VIAL (FOR RADIOLOGY & DIALYSIS ONLY) XX SCH (06:30)
[2022-04-04] MEDS ORDERED: SODIUM CHLORIDE 0.9% 1000ML IV PRN (06:30)
[2022-04-04] MEDS ORDERED: HEPARIN 1,000UNITS/ML 10ML VIAL (FOR RADIOLOGY & DIALYSIS ONLY) IV PRN (06:30)
[2022-04-04] MEDS: PERCOCET 5MG/325MG TAB PO PRN ×3 (07:42→20:49)
[2022-04-04] MEDS: SUCROFERRIC OXYHYDROXIDE 500MG CHEW TAB (VELPHORO) PO SCH ×3 (08:00→18:34)
[2022-04-04] MEDS: IRON SUCROSE 100MG 5ML VIAL IV SCH (09:17)
[2022-04-04] MEDS: PATIROMER SORBITEX CALCIUM 8.4 GM POWDER PACKET (VELTASSA) PO SCH (12:00)
[2022-04-04] MEDS: HYDROCORTISONE 5MG TABLET PO SCH (12:33)
[2022-04-04] MEDS: CYANOCOBALAMIN 500 MCG TAB PO SCH (12:33)
[2022-04-04] MEDS: OLANZapine 2.5MG TABLET PO SCH ×2 (12:34→20:47)
[2022-04-04] MEDS: PANTOPRAZOLE 40MG TAB (PROTONIX) PO SCH (12:34)
[2022-04-04] MEDS: METHADONE 10MG TAB PO SCH (12:34)
[2022-04-04] MEDS: THIAMINE 100 MG TAB PO SCH (12:34)
[2022-04-04] MEDS: FLUDROCORTISONE ACETATE 0.1 MG TAB PO SCH (12:34)
[2022-04-04] MEDS: fluvoxaMINE MALEATE 50 MG TAB PO SCH (20:47)
[2022-04-05] MEDS: PERCOCET 5MG/325MG TAB PO PRN ×4 (03:24→22:24)
[2022-04-05] MEDS: HEPARIN SOD (PORCINE) 5000UNITS/ML 1ML VIAL/SYRINGE SQ SCH ×3 (06:00→21:26)
[2022-04-05] MEDS: SUCROFERRIC OXYHYDROXIDE 500MG CHEW TAB (VELPHORO) PO SCH ×3 (08:46→17:28)
[2022-04-05] MEDS: PANTOPRAZOLE 40MG TAB (PROTONIX) PO SCH (08:47)
[2022-04-05] MEDS: METHADONE 10MG TAB PO SCH (08:47)
[2022-04-05] MEDS: HYDROCORTISONE 5MG TABLET PO SCH (08:47)
[2022-04-05] MEDS: THIAMINE 100 MG TAB PO SCH (08:47)
[2022-04-05] MEDS: OLANZapine 2.5MG TABLET PO SCH ×2 (08:47→21:28)
[2022-04-05] MEDS: FLUDROCORTISONE ACETATE 0.1 MG TAB PO SCH (08:47)
[2022-04-05] MEDS: CYANOCOBALAMIN 500 MCG TAB PO SCH (08:47)
[2022-04-05] MEDS: PATIROMER SORBITEX CALCIUM 8.4 GM POWDER PACKET (VELTASSA) PO SCH (11:53)
[2022-04-05 14:05] VITALS: BP 128/71
[2022-04-05] MEDS: fluvoxaMINE MALEATE 50 MG TAB PO SCH (21:28)
[2022-04-06] MEDS: HEPARIN SOD (PORCINE) 5000UNITS/ML 1ML VIAL/SYRINGE SQ SCH ×3 (05:24→21:13)
[2022-04-06 06:00] VITALS: BP 155/86
[2022-04-06] MEDS ORDERED: SODIUM CHLORIDE 0.9% 1000ML IV PRN (07:30)
[2022-04-06] MEDS ORDERED: HEPARIN 1,000UNITS/ML 10ML VIAL (FOR RADIOLOGY & DIALYSIS ONLY) IV PRN (07:30)
[2022-04-06] MEDS ORDERED: HEPARIN 1,000UNITS/ML 10ML VIAL (FOR RADIOLOGY & DIALYSIS ONLY) XX SCH (07:30)
[2022-04-06] MEDS: SUCROFERRIC OXYHYDROXIDE 500MG CHEW TAB (VELPHORO) PO SCH ×3 (08:00→18:00)
[2022-04-06] MEDS: IRON SUCROSE 100MG 5ML VIAL IV SCH (08:41)
[2022-04-06] MEDS: PATIROMER SORBITEX CALCIUM 8.4 GM POWDER PACKET (VELTASSA) PO SCH (12:00)
[2022-04-06] MEDS: METHADONE 10MG TAB PO SCH (14:05)
[2022-04-06] MEDS: OLANZapine 2.5MG TABLET PO SCH ×2 (14:05→21:14)
[2022-04-06] MEDS: PANTOPRAZOLE 40MG TAB (PROTONIX) PO SCH (14:05)
[2022-04-06] MEDS: FLUDROCORTISONE ACETATE 0.1 MG TAB PO SCH (14:06)
[2022-04-06] MEDS: THIAMINE 100 MG TAB PO SCH (14:06)
[2022-04-06] MEDS: HYDROCORTISONE 5MG TABLET PO SCH (14:06)
[2022-04-06] MEDS: CYANOCOBALAMIN 500 MCG TAB PO SCH (14:07)
[2022-04-06] MEDS: PERCOCET 5MG/325MG TAB PO PRN ×2 (14:16→21:12)
[2022-04-06] MEDS: fluvoxaMINE MALEATE 50 MG TAB PO SCH (21:11)
[2022-04-07] MEDS: PERCOCET 5MG/325MG TAB PO PRN ×4 (03:39→23:21)
[2022-04-07] MEDS: HEPARIN SOD (PORCINE) 5000UNITS/ML 1ML VIAL/SYRINGE SQ SCH ×3 (05:41→21:53)
[2022-04-07 06:00] VITALS: BP 158/70
[2022-04-07] MEDS: SUCROFERRIC OXYHYDROXIDE 500MG CHEW TAB (VELPHORO) PO SCH ×4 (08:00→17:38)
[2022-04-07] MEDS: FLUDROCORTISONE ACETATE 0.1 MG TAB PO SCH (08:19)
[2022-04-07] MEDS: OLANZapine 2.5MG TABLET PO SCH ×2 (08:20→21:54)
[2022-04-07] MEDS: METHADONE 10MG TAB PO SCH (08:20)
[2022-04-07] MEDS: CYANOCOBALAMIN 500 MCG TAB PO SCH (08:20)
[2022-04-07] MEDS: THIAMINE 100 MG TAB PO SCH (08:20)
[2022-04-07] MEDS: PANTOPRAZOLE 40MG TAB (PROTONIX) PO SCH (08:20)
[2022-04-07] MEDS: HYDROCORTISONE 5MG TABLET PO SCH (08:20)
[2022-04-07] MEDS: PATIROMER SORBITEX CALCIUM 8.4 GM POWDER PACKET (VELTASSA) PO SCH (13:20)
[2022-04-07 17:31] LABS: ALBUMIN 2.9 G/DL (3.2-5.2); CALCIUM LEVEL 7.9 MG/DL (8.5-10.1); CREATININE FOR GFR 7.38 MG/DL (0.70-1.30); GLOMERULAR FILTRATION RATE 8.7 (>60); PHOSPHORUS LEVEL 3.5 MG/DL (2.5-4.9)
[2022-04-07] MEDS: fluvoxaMINE MALEATE 50 MG TAB PO SCH (21:54)
[2022-04-08] MEDS: HEPARIN SOD (PORCINE) 5000UNITS/ML 1ML VIAL/SYRINGE SQ SCH ×3 (05:45→21:27)
[2022-04-08 06:24] VITALS: BP 141/78
[2022-04-08] MEDS: PERCOCET 5MG/325MG TAB PO PRN ×2 (06:32→15:18)
[2022-04-08] MEDS: PATIROMER SORBITEX CALCIUM 8.4 GM POWDER PACKET (VELTASSA) PO SCH (10:20)
[2022-04-08] MEDS: FLUDROCORTISONE ACETATE 0.1 MG TAB PO SCH (10:21)
[2022-04-08] MEDS: METHADONE 10MG TAB PO SCH (10:21)
[2022-04-08] MEDS: HYDROCORTISONE 5MG TABLET PO SCH (10:22)
[2022-04-08] MEDS: PANTOPRAZOLE 40MG TAB (PROTONIX) PO SCH (10:22)
[2022-04-08] MEDS: CYANOCOBALAMIN 500 MCG TAB PO SCH (10:22)
[2022-04-08] MEDS: THIAMINE 100 MG TAB PO SCH (10:23)
[2022-04-08] MEDS: SUCROFERRIC OXYHYDROXIDE 500MG CHEW TAB (VELPHORO) PO SCH ×3 (10:24→16:51)
[2022-04-08] MEDS: OLANZapine 2.5MG TABLET PO SCH ×2 (10:26→21:27)
[2022-04-08] MEDS: fluvoxaMINE MALEATE 50 MG TAB PO SCH (21:28)
[2022-04-09] MEDS: PERCOCET 5MG/325MG TAB PO PRN ×3 (01:02→22:14)
[2022-04-09] MEDS: HEPARIN SOD (PORCINE) 5000UNITS/ML 1ML VIAL/SYRINGE SQ SCH ×3 (05:51→22:14)
[2022-04-09] MEDS ORDERED: HEPARIN 1,000UNITS/ML 10ML VIAL (FOR RADIOLOGY & DIALYSIS ONLY) IV PRN (06:00)
[2022-04-09] MEDS ORDERED: SODIUM CHLORIDE 0.9% 1000ML IV PRN (06:00)
[2022-04-09] MEDS ORDERED: HEPARIN 1,000UNITS/ML 10ML VIAL (FOR RADIOLOGY & DIALYSIS ONLY) XX SCH (06:00)
[2022-04-09] MEDS: SUCROFERRIC OXYHYDROXIDE 500MG CHEW TAB (VELPHORO) PO SCH ×4 (08:00→17:52)
[2022-04-09] MEDS: DARBEPOETIN 200MCG/0.4ML *DIALYSIS* SYRINGE IV SCH (08:26)
[2022-04-09] MEDS: IRON SUCROSE 100MG 5ML VIAL IV SCH (09:00)
[2022-04-09] MEDS: PATIROMER SORBITEX CALCIUM 8.4 GM POWDER PACKET (VELTASSA) PO SCH ×2 (12:00→14:05)
[2022-04-09] MEDS: METHADONE 10MG TAB PO SCH (12:36)
[2022-04-09] MEDS: HYDROCORTISONE 5MG TABLET PO SCH (12:36)
[2022-04-09] MEDS: CYANOCOBALAMIN 500 MCG TAB PO SCH (12:36)
[2022-04-09] MEDS: PANTOPRAZOLE 40MG TAB (PROTONIX) PO SCH (12:36)
[2022-04-09] MEDS: FLUDROCORTISONE ACETATE 0.1 MG TAB PO SCH (12:37)
[2022-04-09] MEDS: OLANZapine 2.5MG TABLET PO SCH ×2 (12:45→22:13)
[2022-04-09] MEDS: THIAMINE 100 MG TAB PO SCH (12:45)
[2022-04-09] MEDS: fluvoxaMINE MALEATE 50 MG TAB PO SCH (22:13)
[2022-04-10] MEDS: HEPARIN SOD (PORCINE) 5000UNITS/ML 1ML VIAL/SYRINGE SQ SCH ×3 (05:41→21:16)
[2022-04-10 05:45] VITALS: BP 158/84
[2022-04-10 06:51] LABS: ALBUMIN 2.9 G/DL (3.2-5.2); CREATININE FOR GFR 6.97 MG/DL (0.70-1.30); GLOMERULAR FILTRATION RATE 9.3 (>60); PHOSPHORUS LEVEL 3.8 MG/DL (2.5-4.9); POTASSIUM SERUM 4.3 MMOL/L (3.5-5.1)
[2022-04-10] MEDS: SUCROFERRIC OXYHYDROXIDE 500MG CHEW TAB (VELPHORO) PO SCH ×3 (07:58→17:39)
[2022-04-10] MEDS: PANTOPRAZOLE 40MG TAB (PROTONIX) PO SCH (07:59)
[2022-04-10] MEDS: CYANOCOBALAMIN 500 MCG TAB PO SCH (07:59)
[2022-04-10] MEDS: THIAMINE 100 MG TAB PO SCH (07:59)
[2022-04-10] MEDS: OLANZapine 2.5MG TABLET PO SCH ×2 (07:59→20:04)
[2022-04-10] MEDS: HYDROCORTISONE 5MG TABLET PO SCH (07:59)
[2022-04-10] MEDS: METHADONE 10MG TAB PO SCH (07:59)
[2022-04-10] MEDS: FLUDROCORTISONE ACETATE 0.1 MG TAB PO SCH (07:59)
[2022-04-10] MEDS: PERCOCET 5MG/325MG TAB PO PRN ×2 (08:10→20:05)
[2022-04-10] MEDS: PATIROMER SORBITEX CALCIUM 8.4 GM POWDER PACKET (VELTASSA) PO SCH (13:22)
[2022-04-10] MEDS: fluvoxaMINE MALEATE 50 MG TAB PO SCH (20:03)
[2022-04-11] MEDS ORDERED: HEPARIN 1,000UNITS/ML 10ML VIAL (FOR RADIOLOGY & DIALYSIS ONLY) XX SCH (06:00)
[2022-04-11] MEDS ORDERED: HEPARIN 1,000UNITS/ML 10ML VIAL (FOR RADIOLOGY & DIALYSIS ONLY) IV PRN (06:00)
[2022-04-11] MEDS ORDERED: SODIUM CHLORIDE 0.9% 1000ML IV PRN (06:00)
[2022-04-11] MEDS: HEPARIN SOD (PORCINE) 5000UNITS/ML 1ML VIAL/SYRINGE SQ SCH ×3 (06:06→22:07)
[2022-04-11 06:09] VITALS: BP 166/96
[2022-04-11] MEDS: SUCROFERRIC OXYHYDROXIDE 500MG CHEW TAB (VELPHORO) PO SCH ×3 (08:00→18:33)
[2022-04-11] MEDS: IRON SUCROSE 100MG 5ML VIAL IV SCH (08:26)
[2022-04-11] MEDS: PATIROMER SORBITEX CALCIUM 8.4 GM POWDER PACKET (VELTASSA) PO SCH (12:24)
[2022-04-11] MEDS: PANTOPRAZOLE 40MG TAB (PROTONIX) PO SCH (12:25)
[2022-04-11] MEDS: METHADONE 10MG TAB PO SCH (12:25)
[2022-04-11] MEDS: THIAMINE 100 MG TAB PO SCH (12:25)
[2022-04-11] MEDS: PERCOCET 5MG/325MG TAB PO PRN ×2 (12:25→20:02)
[2022-04-11] MEDS: CYANOCOBALAMIN 500 MCG TAB PO SCH (12:25)
[2022-04-11] MEDS: HYDROCORTISONE 5MG TABLET PO SCH (12:26)
[2022-04-11] MEDS: OLANZapine 2.5MG TABLET PO SCH ×2 (12:26→20:03)
[2022-04-11] MEDS: FLUDROCORTISONE ACETATE 0.1 MG TAB PO SCH (12:26)
[2022-04-11] MEDS: fluvoxaMINE MALEATE 50 MG TAB PO SCH (20:03)
[2022-04-12 06:12] VITALS: BP 162/92
[2022-04-12] MEDS: HEPARIN SOD (PORCINE) 5000UNITS/ML 1ML VIAL/SYRINGE SQ SCH ×3 (06:43→20:31)
[2022-04-12] MEDS: PERCOCET 5MG/325MG TAB PO PRN ×2 (08:12→20:32)
[2022-04-12] MEDS: CYANOCOBALAMIN 500 MCG TAB PO SCH (08:12)
[2022-04-12] MEDS: THIAMINE 100 MG TAB PO SCH (08:12)
[2022-04-12] MEDS: FLUDROCORTISONE ACETATE 0.1 MG TAB PO SCH (08:13)
[2022-04-12] MEDS: PANTOPRAZOLE 40MG TAB (PROTONIX) PO SCH (08:13)
[2022-04-12] MEDS: OLANZapine 2.5MG TABLET PO SCH ×2 (08:13→20:31)
[2022-04-12] MEDS: METHADONE 10MG TAB PO SCH (08:13)
[2022-04-12] MEDS: SUCROFERRIC OXYHYDROXIDE 500MG CHEW TAB (VELPHORO) PO SCH ×3 (08:14→17:48)
[2022-04-12] MEDS: HYDROCORTISONE 5MG TABLET PO SCH (08:14)
[2022-04-12] MEDS: PATIROMER SORBITEX CALCIUM 8.4 GM POWDER PACKET (VELTASSA) PO SCH (12:40)
[2022-04-12] MEDS: ACETAMINOPHEN TAB 650MG DOSE (2X325MG) PO PRN (18:22)
[2022-04-12] MEDS: fluvoxaMINE MALEATE 50 MG TAB PO SCH (20:31)
[2022-04-13] MEDS: HEPARIN SOD (PORCINE) 5000UNITS/ML 1ML VIAL/SYRINGE SQ SCH ×3 (05:18→22:00)
[2022-04-13 06:00] VITALS: BP 158/93
[2022-04-13] MEDS ORDERED: HEPARIN 1,000UNITS/ML 10ML VIAL (FOR RADIOLOGY & DIALYSIS ONLY) IV PRN (06:45)
[2022-04-13] MEDS ORDERED: HEPARIN 1,000UNITS/ML 10ML VIAL (FOR RADIOLOGY & DIALYSIS ONLY) XX SCH (06:45)
[2022-04-13] MEDS ORDERED: SODIUM CHLORIDE 0.9% 1000ML IV PRN (06:45)
[2022-04-13 06:51] LABS: ALBUMIN 3.1 G/DL (3.2-5.2); CALCIUM LEVEL 8.2 MG/DL (8.5-10.1); CREATININE FOR GFR 8.72 MG/DL (0.70-1.30); GLOMERULAR FILTRATION RATE 7.2 (>60); POTASSIUM SERUM 4.3 MMOL/L (3.5-5.1)
[2022-04-13] MEDS: SUCROFERRIC OXYHYDROXIDE 500MG CHEW TAB (VELPHORO) PO SCH ×3 (08:00→17:48)
[2022-04-13] MEDS: IRON SUCROSE 100MG 5ML VIAL IV SCH (09:04)
[2022-04-13] MEDS: PERCOCET 5MG/325MG TAB PO PRN (12:37)
[2022-04-13] MEDS: PATIROMER SORBITEX CALCIUM 8.4 GM POWDER PACKET (VELTASSA) PO SCH (12:38)
[2022-04-13] MEDS: PANTOPRAZOLE 40MG TAB (PROTONIX) PO SCH (12:38)
[2022-04-13] MEDS: OLANZapine 2.5MG TABLET PO SCH ×2 (12:38→20:32)
[2022-04-13] MEDS: HYDROCORTISONE 5MG TABLET PO SCH (12:38)
[2022-04-13] MEDS: CYANOCOBALAMIN 500 MCG TAB PO SCH (12:38)
[2022-04-13] MEDS: FLUDROCORTISONE ACETATE 0.1 MG TAB PO SCH (12:38)
[2022-04-13] MEDS: THIAMINE 100 MG TAB PO SCH (12:39)
[2022-04-13] MEDS: METHADONE 10MG TAB PO SCH (12:39)
[2022-04-13] MEDS: fluvoxaMINE MALEATE 50 MG TAB PO SCH (20:32)
[2022-04-14] MEDS: PERCOCET 5MG/325MG TAB PO PRN ×2 (00:59→13:22)
[2022-04-14 06:00] VITALS: BP 142/78
[2022-04-14] MEDS: HEPARIN SOD (PORCINE) 5000UNITS/ML 1ML VIAL/SYRINGE SQ SCH ×3 (06:15→20:55)
[2022-04-14] MEDS: SUCROFERRIC OXYHYDROXIDE 500MG CHEW TAB (VELPHORO) PO SCH ×4 (08:00→18:12)
[2022-04-14] MEDS: THIAMINE 100 MG TAB PO SCH (08:18)
[2022-04-14] MEDS: PANTOPRAZOLE 40MG TAB (PROTONIX) PO SCH (08:18)
[2022-04-14] MEDS: METHADONE 10MG TAB PO SCH (08:18)
[2022-04-14] MEDS: FLUDROCORTISONE ACETATE 0.1 MG TAB PO SCH (08:18)
[2022-04-14] MEDS: HYDROCORTISONE 5MG TABLET PO SCH (08:18)
[2022-04-14] MEDS: CYANOCOBALAMIN 500 MCG TAB PO SCH (08:18)
[2022-04-14] MEDS: OLANZapine 2.5MG TABLET PO SCH (08:18)
[2022-04-14] MEDS: PATIROMER SORBITEX CALCIUM 8.4 GM POWDER PACKET (VELTASSA) PO SCH (13:23)
[2022-04-14] MEDS: fluvoxaMINE MALEATE 50 MG TAB PO SCH (20:55)
[2022-04-14] MEDS: ACETAMINOPHEN TAB 650MG DOSE (2X325MG) PO PRN (20:59)
[2022-04-14] MEDS ORDERED: OLANZapine 5 MG TAB PO SCH (21:00)
[2022-04-15] MEDS: PERCOCET 5MG/325MG TAB PO PRN ×2 (00:30→12:49)
[2022-04-15] MEDS: HEPARIN SOD (PORCINE) 5000UNITS/ML 1ML VIAL/SYRINGE SQ SCH ×3 (05:14→21:37)
[2022-04-15 05:37] VITALS: BP 162/98
[2022-04-15] MEDS ORDERED: **hydrALAZINE** 10 MG TAB PO ONE (06:00)
[2022-04-15 06:30] VITALS: BP 166/78
[2022-04-15] MEDS: SUCROFERRIC OXYHYDROXIDE 500MG CHEW TAB (VELPHORO) PO SCH ×3 (08:11→18:13)
[2022-04-15] MEDS: PANTOPRAZOLE 40MG TAB (PROTONIX) PO SCH (08:11)
[2022-04-15] MEDS: FLUDROCORTISONE ACETATE 0.1 MG TAB PO SCH (08:12)
[2022-04-15] MEDS: HYDROCORTISONE 5MG TABLET PO SCH (08:12)
[2022-04-15] MEDS: THIAMINE 100 MG TAB PO SCH (08:12)
[2022-04-15] MEDS: METHADONE 10MG TAB PO SCH (08:12)
[2022-04-15] MEDS: OLANZapine 5 MG TAB PO SCH ×2 (08:12→21:34)
[2022-04-15] MEDS: CYANOCOBALAMIN 500 MCG TAB PO SCH (08:13)
[2022-04-15] MEDS: PATIROMER SORBITEX CALCIUM 8.4 GM POWDER PACKET (VELTASSA) PO SCH (11:54)
[2022-04-15] MEDS: fluvoxaMINE MALEATE 50 MG TAB PO SCH (21:35)
[2022-04-16] MEDS: HEPARIN SOD (PORCINE) 5000UNITS/ML 1ML VIAL/SYRINGE SQ SCH ×3 (05:22→21:17)
[2022-04-16 05:51] VITALS: BP 167/97
[2022-04-16] MEDS ORDERED: HEPARIN 1,000UNITS/ML 10ML VIAL (FOR RADIOLOGY & DIALYSIS ONLY) XX SCH (06:50)
[2022-04-16] MEDS ORDERED: SODIUM CHLORIDE 0.9% 1000ML IV PRN (06:50)
[2022-04-16] MEDS ORDERED: HEPARIN 1,000UNITS/ML 10ML VIAL (FOR RADIOLOGY & DIALYSIS ONLY) IV PRN (06:50)
[2022-04-16] MEDS: SUCROFERRIC OXYHYDROXIDE 500MG CHEW TAB (VELPHORO) PO SCH ×3 (08:00→17:37)
[2022-04-16 08:16] LABS: ALBUMIN 3.1 G/DL (3.2-5.2); CREATININE FOR GFR 10.88 MG/DL (0.70-1.30); GLOMERULAR FILTRATION RATE 5.6 (>60); PHOSPHORUS LEVEL 4.2 MG/DL (2.5-4.9); POTASSIUM SERUM 4.8 MMOL/L (3.5-5.1)
[2022-04-16] MEDS: IRON SUCROSE 100MG 5ML VIAL IV SCH (09:38)
[2022-04-16] MEDS: DARBEPOETIN 200MCG/0.4ML *DIALYSIS* SYRINGE IV SCH (10:39)
[2022-04-16] MEDS: HYDROCORTISONE 5MG TABLET PO SCH (13:17)
[2022-04-16] MEDS: FLUDROCORTISONE ACETATE 0.1 MG TAB PO SCH (13:18)
[2022-04-16] MEDS: PERCOCET 5MG/325MG TAB PO PRN (13:18)
[2022-04-16] MEDS: CYANOCOBALAMIN 500 MCG TAB PO SCH (13:19)
[2022-04-16] MEDS: PANTOPRAZOLE 40MG TAB (PROTONIX) PO SCH (13:19)
[2022-04-16] MEDS: METHADONE 10MG TAB PO SCH (13:20)
[2022-04-16] MEDS: THIAMINE 100 MG TAB PO SCH (13:20)
[2022-04-16] MEDS: OLANZapine 5 MG TAB PO SCH ×2 (13:20→21:17)
[2022-04-16] MEDS: PATIROMER SORBITEX CALCIUM 8.4 GM POWDER PACKET (VELTASSA) PO SCH (13:20)
[2022-04-16] MEDS: fluvoxaMINE MALEATE 50 MG TAB PO SCH (21:16)
[2022-04-17] MEDS: ACETAMINOPHEN TAB 650MG DOSE (2X325MG) PO PRN (00:07)
[2022-04-17] MEDS: PERCOCET 5MG/325MG TAB PO PRN ×2 (01:18→14:40)
[2022-04-17 04:00] VITALS: BP 152/71
[2022-04-17] MEDS: HEPARIN SOD (PORCINE) 5000UNITS/ML 1ML VIAL/SYRINGE SQ SCH ×3 (05:31→20:45)
[2022-04-17] MEDS: FLUDROCORTISONE ACETATE 0.1 MG TAB PO SCH (08:23)
[2022-04-17] MEDS: PANTOPRAZOLE 40MG TAB (PROTONIX) PO SCH (08:23)
[2022-04-17] MEDS: SUCROFERRIC OXYHYDROXIDE 500MG CHEW TAB (VELPHORO) PO SCH ×3 (08:23→17:09)
[2022-04-17] MEDS: OLANZapine 5 MG TAB PO SCH ×2 (08:23→20:45)
[2022-04-17] MEDS: HYDROCORTISONE 5MG TABLET PO SCH (08:23)
[2022-04-17] MEDS: METHADONE 10MG TAB PO SCH (08:24)
[2022-04-17] MEDS: CYANOCOBALAMIN 500 MCG TAB PO SCH (08:24)
[2022-04-17] MEDS: THIAMINE 100 MG TAB PO SCH (08:24)
[2022-04-17] MEDS: PATIROMER SORBITEX CALCIUM 8.4 GM POWDER PACKET (VELTASSA) PO SCH (12:04)
[2022-04-17] MEDS: fluvoxaMINE MALEATE 50 MG TAB PO SCH (20:44)
[2022-04-18] MEDS: HEPARIN SOD (PORCINE) 5000UNITS/ML 1ML VIAL/SYRINGE SQ SCH ×3 (05:04→20:41)
[2022-04-18] MEDS: PERCOCET 5MG/325MG TAB PO PRN ×2 (05:07→18:01)
[2022-04-18 06:00] VITALS: BP 148/88
[2022-04-18] MEDS ORDERED: HEPARIN 1,000UNITS/ML 10ML VIAL (FOR RADIOLOGY & DIALYSIS ONLY) XX SCH (06:45)
[2022-04-18] MEDS ORDERED: SODIUM CHLORIDE 0.9% 1000ML IV PRN (06:45)
[2022-04-18] MEDS ORDERED: HEPARIN 1,000UNITS/ML 10ML VIAL (FOR RADIOLOGY & DIALYSIS ONLY) IV PRN (06:45)
[2022-04-18 07:45] LABS: HEMATOCRIT 30.7 % (42.0-52.0); HEMOGLOBIN 9.5 g/dl (13.5-17.5); MEAN CORPUSCULAR HGB CONC 30.9 g/dl (32.0-36.5); MEAN CORPUSCULAR VOLUME 96.8 fl (80.0-96.0); PLATELET COUNT, AUTOMATED 189 10^3/uL (150-450); RED BLOOD COUNT 3.17 10^6/uL (4.30-6.10); WHITE BLOOD COUNT 7.1 10^3/uL (4.0-10.0)
[2022-04-18] MEDS: SUCROFERRIC OXYHYDROXIDE 500MG CHEW TAB (VELPHORO) PO SCH ×3 (08:00→17:38)
[2022-04-18 08:25] LABS: ALBUMIN 3.1 G/DL (3.2-5.2); CALCIUM LEVEL 8.3 MG/DL (8.5-10.1); CREATININE FOR GFR 9.52 MG/DL (0.70-1.30); GLOMERULAR FILTRATION RATE 6.5 (>60); PHOSPHORUS LEVEL 3.8 MG/DL (2.5-4.9); POTASSIUM SERUM 4.3 MMOL/L (3.5-5.1)
[2022-04-18] MEDS: IRON SUCROSE 100MG 5ML VIAL IV SCH (08:39)
[2022-04-18] MEDS: METHADONE 10MG TAB PO SCH (12:40)
[2022-04-18] MEDS: PATIROMER SORBITEX CALCIUM 8.4 GM POWDER PACKET (VELTASSA) PO SCH (12:40)
[2022-04-18] MEDS: FLUDROCORTISONE ACETATE 0.1 MG TAB PO SCH (12:40)
[2022-04-18] MEDS: OLANZapine 5 MG TAB PO SCH ×2 (12:41→20:41)
[2022-04-18] MEDS: HYDROCORTISONE 5MG TABLET PO SCH (12:41)
[2022-04-18] MEDS: CYANOCOBALAMIN 500 MCG TAB PO SCH (12:41)
[2022-04-18] MEDS: PANTOPRAZOLE 40MG TAB (PROTONIX) PO SCH (12:41)
[2022-04-18] MEDS: THIAMINE 100 MG TAB PO SCH (12:41)
[2022-04-18] MEDS: NEOSPORIN TOP OINT 15GM TOP SCH (18:32)
[2022-04-18] MEDS ORDERED: amLODIPine 5 MG TAB PO ONE (20:30)
[2022-04-18] MEDS: fluvoxaMINE MALEATE 50 MG TAB PO SCH (20:41)
[2022-04-19] MEDS: HEPARIN SOD (PORCINE) 5000UNITS/ML 1ML VIAL/SYRINGE SQ SCH ×3 (05:05→21:05)
[2022-04-19 06:34] VITALS: BP 172/100
[2022-04-19] MEDS: PERCOCET 5MG/325MG TAB PO PRN ×2 (06:51→19:30)
[2022-04-19] MEDS: HYDROCORTISONE 5MG TABLET PO SCH (08:43)
[2022-04-19] MEDS: THIAMINE 100 MG TAB PO SCH (08:43)
[2022-04-19] MEDS: OLANZapine 5 MG TAB PO SCH ×2 (08:43→21:05)
[2022-04-19] MEDS: SUCROFERRIC OXYHYDROXIDE 500MG CHEW TAB (VELPHORO) PO SCH ×3 (08:43→17:50)
[2022-04-19] MEDS: METHADONE 10MG TAB PO SCH (08:44)
[2022-04-19] MEDS: CYANOCOBALAMIN 500 MCG TAB PO SCH (08:44)
[2022-04-19] MEDS: FLUDROCORTISONE ACETATE 0.1 MG TAB PO SCH (08:44)
[2022-04-19] MEDS: amLODIPine 5 MG TAB PO SCH (08:50)
[2022-04-19 09:00] VITALS: BP 161/93
[2022-04-19] MEDS: PANTOPRAZOLE 40MG TAB (PROTONIX) PO SCH (09:00)
[2022-04-19] MEDS: NEOSPORIN TOP OINT 15GM TOP SCH (10:07)
[2022-04-19] MEDS: PATIROMER SORBITEX CALCIUM 8.4 GM POWDER PACKET (VELTASSA) PO SCH (11:53)
[2022-04-19] MEDS: fluvoxaMINE MALEATE 50 MG TAB PO SCH (21:05)
[2022-04-20] MEDS: HEPARIN SOD (PORCINE) 5000UNITS/ML 1ML VIAL/SYRINGE SQ SCH ×3 (05:13→19:44)
[2022-04-20 06:17] VITALS: BP 162/94
[2022-04-20] MEDS ORDERED: HEPARIN 1,000UNITS/ML 10ML VIAL (FOR RADIOLOGY & DIALYSIS ONLY) IV PRN (06:55)
[2022-04-20] MEDS ORDERED: HEPARIN 1,000UNITS/ML 10ML VIAL (FOR RADIOLOGY & DIALYSIS ONLY) XX SCH (06:55)
[2022-04-20] MEDS ORDERED: SODIUM CHLORIDE 0.9% 1000ML IV PRN (06:55)
[2022-04-20] MEDS: PERCOCET 5MG/325MG TAB PO PRN ×2 (07:30→19:43)
[2022-04-20] MEDS: SUCROFERRIC OXYHYDROXIDE 500MG CHEW TAB (VELPHORO) PO SCH ×3 (08:00→17:19)
[2022-04-20] MEDS: IRON SUCROSE 100MG 5ML VIAL IV SCH (08:38)
[2022-04-20] MEDS: OLANZapine 5 MG TAB PO SCH ×2 (13:13→19:43)
[2022-04-20] MEDS: PATIROMER SORBITEX CALCIUM 8.4 GM POWDER PACKET (VELTASSA) PO SCH (13:13)
[2022-04-20] MEDS: FLUDROCORTISONE ACETATE 0.1 MG TAB PO SCH (13:13)
[2022-04-20] MEDS: METHADONE 10MG TAB PO SCH (13:14)
[2022-04-20] MEDS: amLODIPine 5 MG TAB PO SCH (13:14)
[2022-04-20] MEDS: THIAMINE 100 MG TAB PO SCH (13:14)
[2022-04-20] MEDS: PANTOPRAZOLE 40MG TAB (PROTONIX) PO SCH (13:14)
[2022-04-20] MEDS: CYANOCOBALAMIN 500 MCG TAB PO SCH (13:14)
[2022-04-20] MEDS: HYDROCORTISONE 5MG TABLET PO SCH (13:14)
[2022-04-20] MEDS: NEOSPORIN TOP OINT 15GM TOP SCH (13:18)
[2022-04-20] MEDS: fluvoxaMINE MALEATE 50 MG TAB PO SCH (19:43)
[2022-04-21] MEDS: HEPARIN SOD (PORCINE) 5000UNITS/ML 1ML VIAL/SYRINGE SQ SCH ×3 (05:11→20:34)
[2022-04-21 06:34] VITALS: BP 163/94
[2022-04-21] MEDS: THIAMINE 100 MG TAB PO SCH (08:18)
[2022-04-21] MEDS: FLUDROCORTISONE ACETATE 0.1 MG TAB PO SCH (08:18)
[2022-04-21] MEDS: OLANZapine 5 MG TAB PO SCH ×2 (08:18→20:34)
[2022-04-21] MEDS: PANTOPRAZOLE 40MG TAB (PROTONIX) PO SCH (08:19)
[2022-04-21] MEDS: METHADONE 10MG TAB PO SCH (08:19)
[2022-04-21] MEDS: CYANOCOBALAMIN 500 MCG TAB PO SCH (08:19)
[2022-04-21] MEDS: HYDROCORTISONE 5MG TABLET PO SCH (08:19)
[2022-04-21] MEDS: amLODIPine 5 MG TAB PO SCH (08:20)
[2022-04-21] MEDS: SUCROFERRIC OXYHYDROXIDE 500MG CHEW TAB (VELPHORO) PO SCH ×3 (08:20→18:14)
[2022-04-21] MEDS: PERCOCET 5MG/325MG TAB PO PRN ×2 (08:20→20:33)
[2022-04-21] MEDS: NEOSPORIN TOP OINT 15GM TOP SCH (08:21)
[2022-04-21] MEDS: PATIROMER SORBITEX CALCIUM 8.4 GM POWDER PACKET (VELTASSA) PO SCH (13:34)
[2022-04-21] MEDS: fluvoxaMINE MALEATE 50 MG TAB PO SCH (20:33)
[2022-04-22] MEDS: HEPARIN SOD (PORCINE) 5000UNITS/ML 1ML VIAL/SYRINGE SQ SCH ×3 (05:09→20:12)
[2022-04-22 06:30] VITALS: BP 174/100
[2022-04-22 07:49] VITALS: BP 163/95
[2022-04-22] MEDS: CYANOCOBALAMIN 500 MCG TAB PO SCH (09:24)
[2022-04-22] MEDS: HYDROCORTISONE 5MG TABLET PO SCH (09:24)
[2022-04-22] MEDS: PERCOCET 5MG/325MG TAB PO PRN ×2 (09:25→20:17)
[2022-04-22] MEDS: PANTOPRAZOLE 40MG TAB (PROTONIX) PO SCH (09:25)
[2022-04-22] MEDS: OLANZapine 5 MG TAB PO SCH ×2 (09:25→20:12)
[2022-04-22] MEDS: METHADONE 10MG TAB PO SCH (09:25)
[2022-04-22] MEDS: FLUDROCORTISONE ACETATE 0.1 MG TAB PO SCH (09:25)
[2022-04-22] MEDS: NEOSPORIN TOP OINT 15GM TOP SCH (09:26)
[2022-04-22] MEDS: THIAMINE 100 MG TAB PO SCH (09:26)
[2022-04-22] MEDS: SUCROFERRIC OXYHYDROXIDE 500MG CHEW TAB (VELPHORO) PO SCH ×3 (09:27→17:27)
[2022-04-22] MEDS: PATIROMER SORBITEX CALCIUM 8.4 GM POWDER PACKET (VELTASSA) PO SCH (12:04)
[2022-04-22] MEDS: fluvoxaMINE MALEATE 50 MG TAB PO SCH (20:12)
[2022-04-23] MEDS: HEPARIN SOD (PORCINE) 5000UNITS/ML 1ML VIAL/SYRINGE SQ SCH ×3 (05:49→22:03)
[2022-04-23 06:00] VITALS: BP 171/97
[2022-04-23] MEDS ORDERED: HEPARIN 1,000UNITS/ML 10ML VIAL (FOR RADIOLOGY & DIALYSIS ONLY) XX SCH (06:45)
[2022-04-23] MEDS ORDERED: HEPARIN 1,000UNITS/ML 10ML VIAL (FOR RADIOLOGY & DIALYSIS ONLY) IV PRN (06:45)
[2022-04-23] MEDS ORDERED: SODIUM CHLORIDE 0.9% 1000ML IV PRN (06:45)
[2022-04-23 06:46] LABS: BASO # 0.1 10^3/uL (0.0-0.2); BASO % 0.8 % (0.0-1.0); EOS # 0.5 10^3/uL (0.0-0.5); HEMATOCRIT 30.6 % (42.0-52.0); HEMOGLOBIN 9.7 g/dl (13.5-17.5); LYMPH # 1.9 10^3/uL (1.5-5.0); LYMPH % 21.5 % (24.0-44.0); MEAN CORPUSCULAR HEMOGLOBIN 30.1 pg (27.0-33.0); MEAN CORPUSCULAR HGB CONC 31.7 g/dl (32.0-36.5); MONO # 0.8 10^3/uL (0.0-0.8); MONO % 8.5 % (2.0-8.0); NEUTROPHILS # 5.5 10^3/uL (1.5-8.5); NEUTROPHILS % 62.7 % (36.0-66.0); PLATELET COUNT, AUTOMATED 202 10^3/uL (150-450); RED BLOOD COUNT 3.22 10^6/uL (4.30-6.10); WHITE BLOOD COUNT 8.8 10^3/uL (4.0-10.0)
[2022-04-23 07:20] LABS: CALCIUM LEVEL 7.9 MG/DL (8.5-10.1); CREATININE FOR GFR 10.59 MG/DL (0.70-1.30); GLOMERULAR FILTRATION RATE 5.7 (>60); POTASSIUM SERUM 4.6 MMOL/L (3.5-5.1)
[2022-04-23] MEDS: SUCROFERRIC OXYHYDROXIDE 500MG CHEW TAB (VELPHORO) PO SCH ×3 (08:00→18:00)
[2022-04-23] MEDS: NEOSPORIN TOP OINT 15GM TOP SCH (08:00)
[2022-04-23] MEDS: DARBEPOETIN 200MCG/0.4ML *DIALYSIS* SYRINGE IV SCH (08:30)
[2022-04-23] MEDS: PATIROMER SORBITEX CALCIUM 8.4 GM POWDER PACKET (VELTASSA) PO SCH (12:00)
[2022-04-23] MEDS: THIAMINE 100 MG TAB PO SCH (13:19)
[2022-04-23] MEDS: FLUDROCORTISONE ACETATE 0.1 MG TAB PO SCH (13:19)
[2022-04-23] MEDS: HYDROCORTISONE 5MG TABLET PO SCH (13:19)
[2022-04-23] MEDS: METHADONE 10MG TAB PO SCH (13:19)
[2022-04-23] MEDS: CYANOCOBALAMIN 500 MCG TAB PO SCH (13:19)
[2022-04-23] MEDS: PANTOPRAZOLE 40MG TAB (PROTONIX) PO SCH (13:20)
[2022-04-23] MEDS: OLANZapine 5 MG TAB PO SCH ×2 (13:20→19:52)
[2022-04-23] MEDS ORDERED: PILL CUTTER 1 EACH XX PRN (14:20)
[2022-04-23] MEDS: LABETALOL 100MG TAB PO SCH ×2 (15:12→19:53)
[2022-04-23] MEDS: PERCOCET 5MG/325MG TAB PO PRN (19:52)
[2022-04-23] MEDS: fluvoxaMINE MALEATE 50 MG TAB PO SCH (19:52)
[2022-04-24] MEDS: HEPARIN SOD (PORCINE) 5000UNITS/ML 1ML VIAL/SYRINGE SQ SCH ×3 (05:48→21:32)
[2022-04-24 06:00] VITALS: BP 180/90
[2022-04-24] MEDS: METHADONE 10MG TAB PO SCH (08:15)
[2022-04-24] MEDS: SUCROFERRIC OXYHYDROXIDE 500MG CHEW TAB (VELPHORO) PO SCH ×3 (08:15→17:25)
[2022-04-24] MEDS: PERCOCET 5MG/325MG TAB PO PRN ×2 (08:15→20:24)
[2022-04-24] MEDS: PANTOPRAZOLE 40MG TAB (PROTONIX) PO SCH (08:16)
[2022-04-24] MEDS: FLUDROCORTISONE ACETATE 0.1 MG TAB PO SCH (08:16)
[2022-04-24] MEDS: HYDROCORTISONE 5MG TABLET PO SCH (08:16)
[2022-04-24] MEDS: OLANZapine 5 MG TAB PO SCH ×2 (08:16→20:21)
[2022-04-24] MEDS: CYANOCOBALAMIN 500 MCG TAB PO SCH (08:16)
[2022-04-24] MEDS: THIAMINE 100 MG TAB PO SCH (08:16)
[2022-04-24] MEDS: LABETALOL 100MG TAB PO SCH ×2 (08:20→20:22)
[2022-04-24] MEDS: NEOSPORIN TOP OINT 15GM TOP SCH (10:44)
[2022-04-24] MEDS: PATIROMER SORBITEX CALCIUM 8.4 GM POWDER PACKET (VELTASSA) PO SCH (12:05)
[2022-04-24 15:58] VITALS: BP 174/91
[2022-04-24] MEDS ORDERED: **hydrALAZINE** 10 MG TAB PO PRN (16:05)
[2022-04-24] MEDS: fluvoxaMINE MALEATE 50 MG TAB PO SCH (20:21)
[2022-04-25 05:38] VITALS: BP 166/96
[2022-04-25] MEDS: HEPARIN SOD (PORCINE) 5000UNITS/ML 1ML VIAL/SYRINGE SQ SCH ×3 (05:38→21:08)
[2022-04-25] MEDS: **hydrALAZINE** 10 MG TAB PO SCH ×2 (06:00→13:30)
[2022-04-25] MEDS ORDERED: SODIUM CHLORIDE 0.9% 1000ML IV PRN (06:50)
[2022-04-25] MEDS ORDERED: HEPARIN 1,000UNITS/ML 10ML VIAL (FOR RADIOLOGY & DIALYSIS ONLY) IV PRN (06:50)
[2022-04-25] MEDS ORDERED: HEPARIN 1,000UNITS/ML 10ML VIAL (FOR RADIOLOGY & DIALYSIS ONLY) XX SCH (06:50)
[2022-04-25] MEDS: SUCROFERRIC OXYHYDROXIDE 500MG CHEW TAB (VELPHORO) PO SCH ×3 (07:54→17:21)
[2022-04-25] MEDS: PATIROMER SORBITEX CALCIUM 8.4 GM POWDER PACKET (VELTASSA) PO SCH (13:20)
[2022-04-25] MEDS: METHADONE 10MG TAB PO SCH (13:22)
[2022-04-25] MEDS: HYDROCORTISONE 5MG TABLET PO SCH (13:22)
[2022-04-25] MEDS: PANTOPRAZOLE 40MG TAB (PROTONIX) PO SCH (13:22)
[2022-04-25] MEDS: FLUDROCORTISONE ACETATE 0.1 MG TAB PO SCH (13:22)
[2022-04-25] MEDS: CYANOCOBALAMIN 500 MCG TAB PO SCH (13:22)
[2022-04-25] MEDS: OLANZapine 5 MG TAB PO SCH ×2 (13:23→21:08)
[2022-04-25] MEDS: PERCOCET 5MG/325MG TAB PO PRN ×2 (13:23→21:06)
[2022-04-25] MEDS: THIAMINE 100 MG TAB PO SCH (13:23)
[2022-04-25] MEDS: LABETALOL 100MG TAB PO SCH ×2 (13:24→21:07)
[2022-04-25] MEDS: NEOSPORIN TOP OINT 15GM TOP SCH (13:25)
[2022-04-25 15:30] VITALS: BP 141/70
[2022-04-25 20:55] VITALS: BP 168/72
[2022-04-25] MEDS: **hydrALAZINE HCL** 25 MG TAB PO SCH (21:07)
[2022-04-25] MEDS: fluvoxaMINE MALEATE 50 MG TAB PO SCH (21:08)
[2022-04-25] MEDS ORDERED: **hydrALAZINE HCL** 25 MG TAB PO SCH (22:00)
[2022-04-26 06:10] VITALS: BP 172/98
[2022-04-26] MEDS: **hydrALAZINE HCL** 25 MG TAB PO SCH ×3 (06:19→20:49)
[2022-04-26] MEDS: HEPARIN SOD (PORCINE) 5000UNITS/ML 1ML VIAL/SYRINGE SQ SCH ×3 (06:19→20:48)
[2022-04-26] MEDS: SUCROFERRIC OXYHYDROXIDE 500MG CHEW TAB (VELPHORO) PO SCH ×3 (09:24→18:00)
[2022-04-26] MEDS: CYANOCOBALAMIN 500 MCG TAB PO SCH (09:24)
[2022-04-26] MEDS: HYDROCORTISONE 5MG TABLET PO SCH (09:24)
[2022-04-26] MEDS: PANTOPRAZOLE 40MG TAB (PROTONIX) PO SCH (09:25)
[2022-04-26] MEDS: OLANZapine 5 MG TAB PO SCH ×2 (09:25→20:49)
[2022-04-26] MEDS: THIAMINE 100 MG TAB PO SCH (09:25)
[2022-04-26] MEDS: FLUDROCORTISONE ACETATE 0.1 MG TAB PO SCH (09:25)
[2022-04-26] MEDS: METHADONE 10MG TAB PO SCH (09:25)
[2022-04-26] MEDS: PERCOCET 5MG/325MG TAB PO PRN ×2 (09:26→21:49)
[2022-04-26] MEDS: LABETALOL 100MG TAB PO SCH ×2 (09:26→20:49)
[2022-04-26] MEDS: NEOSPORIN TOP OINT 15GM TOP SCH (09:27)
[2022-04-26] MEDS: PATIROMER SORBITEX CALCIUM 8.4 GM POWDER PACKET (VELTASSA) PO SCH (15:07)
[2022-04-26 20:30] VITALS: BP 166/100
[2022-04-26] MEDS: fluvoxaMINE MALEATE 50 MG TAB PO SCH (20:48)
[2022-04-27 06:22] VITALS: BP 170/98
[2022-04-27] MEDS: HEPARIN SOD (PORCINE) 5000UNITS/ML 1ML VIAL/SYRINGE SQ SCH ×3 (06:31→22:11)
[2022-04-27] MEDS: PERCOCET 5MG/325MG TAB PO PRN ×2 (06:31→18:44)
[2022-04-27] MEDS: **hydrALAZINE HCL** 25 MG TAB PO SCH ×3 (06:31→22:00)
[2022-04-27] MEDS ORDERED: SODIUM CHLORIDE 0.9% 1000ML IV PRN (06:50)
[2022-04-27] MEDS ORDERED: HEPARIN 1,000UNITS/ML 10ML VIAL (FOR RADIOLOGY & DIALYSIS ONLY) IV PRN (06:50)
[2022-04-27] MEDS ORDERED: HEPARIN 1,000UNITS/ML 10ML VIAL (FOR RADIOLOGY & DIALYSIS ONLY) XX SCH (06:50)
[2022-04-27] MEDS: SUCROFERRIC OXYHYDROXIDE 500MG CHEW TAB (VELPHORO) PO SCH ×3 (08:00→18:00)
[2022-04-27 12:00] VITALS: BP 158/85
[2022-04-27] MEDS: OLANZapine 5 MG TAB PO SCH ×2 (13:56→20:49)
[2022-04-27] MEDS: METHADONE 10MG TAB PO SCH (13:56)
[2022-04-27] MEDS: CYANOCOBALAMIN 500 MCG TAB PO SCH (13:56)
[2022-04-27] MEDS: HYDROCORTISONE 5MG TABLET PO SCH (13:56)
[2022-04-27] MEDS: THIAMINE 100 MG TAB PO SCH (13:56)
[2022-04-27] MEDS: FLUDROCORTISONE ACETATE 0.1 MG TAB PO SCH (13:56)
[2022-04-27] MEDS: LABETALOL 100MG TAB PO SCH ×2 (13:57→20:49)
[2022-04-27] MEDS: PATIROMER SORBITEX CALCIUM 8.4 GM POWDER PACKET (VELTASSA) PO SCH (13:58)
[2022-04-27] MEDS: PANTOPRAZOLE 40MG TAB (PROTONIX) PO SCH (13:58)
[2022-04-27] MEDS: NEOSPORIN TOP OINT 15GM TOP SCH (14:02)
[2022-04-27] MEDS: fluvoxaMINE MALEATE 50 MG TAB PO SCH (20:48)
[2022-04-27] MEDS: ACETAMINOPHEN TAB 650MG DOSE (2X325MG) PO PRN (21:13)
[2022-04-28 06:42] VITALS: BP 141/77
[2022-04-28 06:52] VITALS: BP 135/78
[2022-04-28] MEDS: **hydrALAZINE HCL** 25 MG TAB PO SCH ×3 (06:58→22:48)
[2022-04-28] MEDS: HEPARIN SOD (PORCINE) 5000UNITS/ML 1ML VIAL/SYRINGE SQ SCH ×3 (06:59→20:04)
[2022-04-28] MEDS: PERCOCET 5MG/325MG TAB PO PRN ×2 (06:59→20:06)
[2022-04-28] MEDS: SUCROFERRIC OXYHYDROXIDE 500MG CHEW TAB (VELPHORO) PO SCH ×3 (08:00→18:28)
[2022-04-28] MEDS: HYDROCORTISONE 5MG TABLET PO SCH (08:43)
[2022-04-28] MEDS: OLANZapine 5 MG TAB PO SCH ×2 (08:43→20:04)
[2022-04-28] MEDS: PANTOPRAZOLE 40MG TAB (PROTONIX) PO SCH (08:43)
[2022-04-28] MEDS: CYANOCOBALAMIN 500 MCG TAB PO SCH (08:43)
[2022-04-28] MEDS: LABETALOL 100MG TAB PO SCH ×2 (08:44→20:05)
[2022-04-28] MEDS: METHADONE 10MG TAB PO SCH (08:44)
[2022-04-28] MEDS: FLUDROCORTISONE ACETATE 0.1 MG TAB PO SCH (08:44)
[2022-04-28] MEDS: THIAMINE 100 MG TAB PO SCH (08:44)
[2022-04-28] MEDS: NEOSPORIN TOP OINT 15GM TOP SCH (08:44)
[2022-04-28] MEDS: PATIROMER SORBITEX CALCIUM 8.4 GM POWDER PACKET (VELTASSA) PO SCH (13:03)
[2022-04-28] MEDS: fluvoxaMINE MALEATE 50 MG TAB PO SCH (20:05)
[2022-04-29 05:40] VITALS: BP 139/78
[2022-04-29] MEDS: **hydrALAZINE** 10 MG TAB PO SCH ×3 (05:43→22:16)
[2022-04-29] MEDS: HEPARIN SOD (PORCINE) 5000UNITS/ML 1ML VIAL/SYRINGE SQ SCH ×3 (05:43→22:17)
[2022-04-29] MEDS: METHADONE 10MG TAB PO SCH (08:34)
[2022-04-29] MEDS: HYDROCORTISONE 5MG TABLET PO SCH (08:34)
[2022-04-29] MEDS: SUCROFERRIC OXYHYDROXIDE 500MG CHEW TAB (VELPHORO) PO SCH ×3 (08:34→18:07)
[2022-04-29] MEDS: OLANZapine 5 MG TAB PO SCH ×2 (08:34→22:16)
[2022-04-29] MEDS: PANTOPRAZOLE 40MG TAB (PROTONIX) PO SCH (08:34)
[2022-04-29] MEDS: CYANOCOBALAMIN 500 MCG TAB PO SCH (08:34)
[2022-04-29] MEDS: THIAMINE 100 MG TAB PO SCH (08:35)
[2022-04-29] MEDS: LABETALOL 100MG TAB PO SCH ×2 (08:35→22:16)
[2022-04-29] MEDS: FLUDROCORTISONE ACETATE 0.1 MG TAB PO SCH (08:36)
[2022-04-29] MEDS: NEOSPORIN TOP OINT 15GM TOP SCH (08:36)
[2022-04-29] MEDS: PERCOCET 5MG/325MG TAB PO PRN ×2 (08:43→22:17)
[2022-04-29] MEDS: PATIROMER SORBITEX CALCIUM 8.4 GM POWDER PACKET (VELTASSA) PO SCH (13:06)
[2022-04-29 21:20] VITALS: BP 141/81
[2022-04-29] MEDS: fluvoxaMINE MALEATE 50 MG TAB PO SCH (22:15)
[2022-04-30 05:44] VITALS: BP 138/83
[2022-04-30] MEDS: **hydrALAZINE** 10 MG TAB PO SCH ×3 (05:46→20:58)
[2022-04-30] MEDS: HEPARIN SOD (PORCINE) 5000UNITS/ML 1ML VIAL/SYRINGE SQ SCH ×3 (05:47→20:59)
[2022-04-30] MEDS ORDERED: HEPARIN 1,000UNITS/ML 10ML VIAL (FOR RADIOLOGY & DIALYSIS ONLY) IV PRN (06:00)
[2022-04-30] MEDS ORDERED: HEPARIN 1,000UNITS/ML 10ML VIAL (FOR RADIOLOGY & DIALYSIS ONLY) XX SCH (06:00)
[2022-04-30] MEDS ORDERED: SODIUM CHLORIDE 0.9% 1000ML IV PRN (06:00)
[2022-04-30] MEDS: SUCROFERRIC OXYHYDROXIDE 500MG CHEW TAB (VELPHORO) PO SCH ×3 (08:00→17:00)
[2022-04-30] MEDS: DARBEPOETIN 200MCG/0.4ML *DIALYSIS* SYRINGE IV SCH (08:57)
[2022-04-30] MEDS: PATIROMER SORBITEX CALCIUM 8.4 GM POWDER PACKET (VELTASSA) PO SCH (13:21)
[2022-04-30] MEDS: HYDROCORTISONE 5MG TABLET PO SCH (13:21)
[2022-04-30] MEDS: CYANOCOBALAMIN 500 MCG TAB PO SCH (13:22)
[2022-04-30] MEDS: THIAMINE 100 MG TAB PO SCH (13:22)
[2022-04-30] MEDS: OLANZapine 5 MG TAB PO SCH ×2 (13:22→20:58)
[2022-04-30] MEDS: PANTOPRAZOLE 40MG TAB (PROTONIX) PO SCH (13:22)
[2022-04-30] MEDS: METHADONE 10MG TAB PO SCH (13:23)
[2022-04-30] MEDS: PERCOCET 5MG/325MG TAB PO PRN ×2 (13:24→20:59)
[2022-04-30] MEDS: FLUDROCORTISONE ACETATE 0.1 MG TAB PO SCH (13:24)
[2022-04-30] MEDS: NEOSPORIN TOP OINT 15GM TOP SCH (13:25)
[2022-04-30] MEDS: LABETALOL 100MG TAB PO SCH ×2 (13:27→21:01)
[2022-04-30] MEDS: fluvoxaMINE MALEATE 50 MG TAB PO SCH (20:58)
[2022-05-01 06:19] VITALS: BP 161/94
[2022-05-01] MEDS: HEPARIN SOD (PORCINE) 5000UNITS/ML 1ML VIAL/SYRINGE SQ SCH ×3 (06:25→20:38)
[2022-05-01] MEDS: **hydrALAZINE** 10 MG TAB PO SCH ×3 (06:25→20:39)
[2022-05-01] MEDS: LABETALOL 100MG TAB PO SCH ×2 (08:10→20:39)
[2022-05-01] MEDS: SUCROFERRIC OXYHYDROXIDE 500MG CHEW TAB (VELPHORO) PO SCH ×3 (08:10→17:15)
[2022-05-01] MEDS: FLUDROCORTISONE ACETATE 0.1 MG TAB PO SCH (08:10)
[2022-05-01] MEDS: OLANZapine 5 MG TAB PO SCH ×2 (08:10→20:38)
[2022-05-01] MEDS: METHADONE 10MG TAB PO SCH (08:10)
[2022-05-01] MEDS: HYDROCORTISONE 5MG TABLET PO SCH (08:10)
[2022-05-01] MEDS: THIAMINE 100 MG TAB PO SCH (08:10)
[2022-05-01] MEDS: CYANOCOBALAMIN 500 MCG TAB PO SCH (08:10)
[2022-05-01] MEDS: PANTOPRAZOLE 40MG TAB (PROTONIX) PO SCH (08:10)
[2022-05-01] MEDS: NEOSPORIN TOP OINT 15GM TOP SCH (08:10)
[2022-05-01] MEDS: PATIROMER SORBITEX CALCIUM 8.4 GM POWDER PACKET (VELTASSA) PO SCH (14:42)
[2022-05-01] MEDS: fluvoxaMINE MALEATE 50 MG TAB PO SCH (20:39)
[2022-05-01] MEDS: PERCOCET 5MG/325MG TAB PO PRN (22:03)
[2022-05-02 05:17] VITALS: BP 146/86
[2022-05-02] MEDS: **hydrALAZINE** 10 MG TAB PO SCH ×3 (06:00→21:34)
[2022-05-02] MEDS ORDERED: HEPARIN 1,000UNITS/ML 10ML VIAL (FOR RADIOLOGY & DIALYSIS ONLY) IV PRN (06:00)
[2022-05-02] MEDS ORDERED: HEPARIN 1,000UNITS/ML 10ML VIAL (FOR RADIOLOGY & DIALYSIS ONLY) XX SCH (06:00)
[2022-05-02] MEDS ORDERED: SODIUM CHLORIDE 0.9% 1000ML IV PRN (06:00)
[2022-05-02] MEDS: HEPARIN SOD (PORCINE) 5000UNITS/ML 1ML VIAL/SYRINGE SQ SCH ×3 (06:15→21:34)
[2022-05-02] MEDS: SUCROFERRIC OXYHYDROXIDE 500MG CHEW TAB (VELPHORO) PO SCH ×3 (08:00→17:02)
[2022-05-02] MEDS: OLANZapine 5 MG TAB PO SCH ×2 (13:43→21:33)
[2022-05-02] MEDS: CYANOCOBALAMIN 500 MCG TAB PO SCH (13:43)
[2022-05-02] MEDS: FLUDROCORTISONE ACETATE 0.1 MG TAB PO SCH (13:43)
[2022-05-02] MEDS: HYDROCORTISONE 5MG TABLET PO SCH (13:43)
[2022-05-02] MEDS: THIAMINE 100 MG TAB PO SCH (13:44)
[2022-05-02] MEDS: PANTOPRAZOLE 40MG TAB (PROTONIX) PO SCH (13:44)
[2022-05-02] MEDS: METHADONE 10MG TAB PO SCH (13:47)
[2022-05-02] MEDS: LABETALOL 100MG TAB PO SCH ×2 (13:47→21:33)
[2022-05-02] MEDS: PERCOCET 5MG/325MG TAB PO PRN ×2 (13:48→21:32)
[2022-05-02] MEDS: NEOSPORIN TOP OINT 15GM TOP SCH (13:49)
[2022-05-02] MEDS: PATIROMER SORBITEX CALCIUM 8.4 GM POWDER PACKET (VELTASSA) PO SCH (13:56)
[2022-05-02] MEDS: fluvoxaMINE MALEATE 50 MG TAB PO SCH (21:32)
[2022-05-03 05:22] VITALS: BP 143/85
[2022-05-03] MEDS: **hydrALAZINE** 10 MG TAB PO SCH ×3 (05:34→20:59)
[2022-05-03] MEDS: HEPARIN SOD (PORCINE) 5000UNITS/ML 1ML VIAL/SYRINGE SQ SCH ×3 (05:37→21:00)
[2022-05-03] MEDS: SUCROFERRIC OXYHYDROXIDE 500MG CHEW TAB (VELPHORO) PO SCH ×3 (08:40→18:23)
[2022-05-03] MEDS: HYDROCORTISONE 5MG TABLET PO SCH (08:40)
[2022-05-03] MEDS: THIAMINE 100 MG TAB PO SCH (08:40)
[2022-05-03] MEDS: CYANOCOBALAMIN 500 MCG TAB PO SCH (08:40)
[2022-05-03] MEDS: OLANZapine 5 MG TAB PO SCH ×2 (08:40→20:58)
[2022-05-03] MEDS: LABETALOL 100MG TAB PO SCH ×2 (08:41→20:59)
[2022-05-03] MEDS: NEOSPORIN TOP OINT 15GM TOP SCH (08:41)
[2022-05-03] MEDS: FLUDROCORTISONE ACETATE 0.1 MG TAB PO SCH (08:41)
[2022-05-03] MEDS: PANTOPRAZOLE 40MG TAB (PROTONIX) PO SCH (08:41)
[2022-05-03] MEDS: METHADONE 10MG TAB PO SCH (08:41)
[2022-05-03] MEDS: PATIROMER SORBITEX CALCIUM 8.4 GM POWDER PACKET (VELTASSA) PO SCH (13:16)
[2022-05-03] MEDS: PERCOCET 5MG/325MG TAB PO PRN (18:26)
[2022-05-03] MEDS: fluvoxaMINE MALEATE 50 MG TAB PO SCH (20:58)
[2022-05-03] MEDS: ACETAMINOPHEN TAB 650MG DOSE (2X325MG) PO PRN (20:59)
[2022-05-03] MEDS ORDERED: VANCOMYCIN HCL 1,000 MG, VIAL MATE ADAPTER 1 EACH in NS 250 ML IV ONE (23:55)
[2022-05-04 00:48] LABS: HEMATOCRIT 35.1 % (42.0-52.0); HEMOGLOBIN 11.1 g/dl (13.5-17.5); MEAN CORPUSCULAR HGB CONC 31.6 g/dl (32.0-36.5); MEAN CORPUSCULAR VOLUME 94.9 fl (80.0-96.0); PLATELET COUNT, AUTOMATED 209 10^3/uL (150-450); WHITE BLOOD COUNT 10.5 10^3/uL (4.0-10.0)
[2022-05-04] MEDS ORDERED: VANCOMYCIN HCL 1,000 MG, VIAL MATE ADAPTER 1 EACH in NS 250 ML IV ONE ×4 (01:00)
[2022-05-04 01:04] LABS: CALCIUM LEVEL 7.8 MG/DL (8.5-10.1); CREATININE FOR GFR 8.05 MG/DL (0.70-1.30); GLOMERULAR FILTRATION RATE 7.9 (>60); POTASSIUM SERUM 4.2 MMOL/L (3.5-5.1)
[2022-05-04 01:13] VITALS: BP 138/78
[2022-05-04 05:30] VITALS: BP 135/77
[2022-05-04] MEDS: HEPARIN SOD (PORCINE) 5000UNITS/ML 1ML VIAL/SYRINGE SQ SCH ×4 (05:36→20:22)
[2022-05-04] MEDS: **hydrALAZINE** 10 MG TAB PO SCH ×3 (05:36→14:21)
[2022-05-04] MEDS: PERCOCET 5MG/325MG TAB PO PRN ×2 (05:38→17:32)
[2022-05-04] MEDS ORDERED: SODIUM CHLORIDE 0.9% 1000ML IV PRN (06:00)
[2022-05-04] MEDS ORDERED: HEPARIN 1,000UNITS/ML 10ML VIAL (FOR RADIOLOGY & DIALYSIS ONLY) IV PRN (06:00)
[2022-05-04] MEDS ORDERED: HEPARIN 1,000UNITS/ML 10ML VIAL (FOR RADIOLOGY & DIALYSIS ONLY) XX SCH (06:00)
[2022-05-04 07:42] LABS: BASO # 0.1 10^3/uL (0.0-0.2); BASO % 0.6 % (0.0-1.0); EOS # 0.4 10^3/uL (0.0-0.5); EOS % 4.3 % (0.0-3.0); HEMATOCRIT 35.9 % (42.0-52.0); HEMOGLOBIN 11.6 g/dl (13.5-17.5); LYMPH # 1.5 10^3/uL (1.5-5.0); LYMPH % 16.1 % (24.0-44.0); MEAN CORPUSCULAR HEMOGLOBIN 30.4 pg (27.0-33.0); MEAN CORPUSCULAR HGB CONC 32.3 g/dl (32.0-36.5); MEAN CORPUSCULAR VOLUME 94.2 fl (80.0-96.0); MONO % 10.2 % (2.0-8.0); NEUTROPHILS # 6.4 10^3/uL (1.5-8.5); NEUTROPHILS % 68.6 % (36.0-66.0); PLATELET COUNT, AUTOMATED 219 10^3/uL (150-450); RED BLOOD COUNT 3.81 10^6/uL (4.30-6.10); WHITE BLOOD COUNT 9.4 10^3/uL (4.0-10.0)
[2022-05-04] MEDS: SUCROFERRIC OXYHYDROXIDE 500MG CHEW TAB (VELPHORO) PO SCH ×3 (08:00→17:23)
[2022-05-04 09:02] LABS: ALBUMIN 3.5 G/DL (3.2-5.2); ALKALINE PHOSPHATASE 164 U/L (46-116); ALT/SGPT < 9 U/L (7.0-40); AST/SGOT 10 U/L (<34); BILIRUBIN,TOTAL 0.2 MG/DL (0.3-1.2); BLOOD UREA NITROGEN 36 MG/DL (9-23); CALCIUM LEVEL 8.5 MG/DL (8.5-10.1); CARBON DIOXIDE LEVEL 23 MMOL/L (20-31); CHLORIDE LEVEL 93 MMOL/L (98-107); CREATININE FOR GFR 8.38 MG/DL (0.70-1.30); GLOMERULAR FILTRATION RATE 7.5 (>60); GLUCOSE, FASTING 88 MG/DL (60-100); POTASSIUM SERUM 4.6 MMOL/L (3.5-5.1); SODIUM LEVEL 129 MMOL/L (136-145); TOTAL PROTEIN 6.8 G/DL (5.7-8.2)
[2022-05-04 11:21] LABS: C REACTIVE PROTEIN QUANTITATIV 7.6 MG/DL (<1.0)
[2022-05-04] MEDS: PATIROMER SORBITEX CALCIUM 8.4 GM POWDER PACKET (VELTASSA) PO SCH (13:24)
[2022-05-04] MEDS: HYDROCORTISONE 5MG TABLET PO SCH (13:24)
[2022-05-04] MEDS: FLUDROCORTISONE ACETATE 0.1 MG TAB PO SCH (13:24)
[2022-05-04] MEDS: CYANOCOBALAMIN 500 MCG TAB PO SCH (13:25)
[2022-05-04] MEDS: PANTOPRAZOLE 40MG TAB (PROTONIX) PO SCH (13:25)
[2022-05-04] MEDS: THIAMINE 100 MG TAB PO SCH (13:25)
[2022-05-04] MEDS: OLANZapine 5 MG TAB PO SCH ×2 (13:25→20:21)
[2022-05-04] MEDS: METHADONE 10MG TAB PO SCH (13:29)
[2022-05-04] MEDS: LABETALOL 100MG TAB PO SCH ×2 (13:29→20:21)
[2022-05-04] MEDS: NEOSPORIN TOP OINT 15GM TOP SCH (13:30)
[2022-05-04 14:00] VITALS: BP 113/76
[2022-05-04] MEDS ORDERED: VANCOMYCIN HCL 1,000 MG, VIAL MATE ADAPTER 1 EACH in D5W 250 ML IV SCH (18:00)
[2022-05-04] MEDS: fluvoxaMINE MALEATE 50 MG TAB PO SCH (20:21)
[2022-05-04 22:00] VITALS: BP 120/75
[2022-05-05] MEDS: **hydrALAZINE** 10 MG TAB PO SCH ×3 (05:06→20:56)
[2022-05-05] MEDS: HEPARIN SOD (PORCINE) 5000UNITS/ML 1ML VIAL/SYRINGE SQ SCH ×3 (05:06→20:57)
[2022-05-05 06:00] VITALS: BP 147/82
[2022-05-05 07:24] LABS: BASO # 0.1 10^3/uL (0.0-0.2); BASO % 1.1 % (0.0-1.0); EOS # 0.4 10^3/uL (0.0-0.5); HEMATOCRIT 36.6 % (42.0-52.0); HEMOGLOBIN 11.6 g/dl (13.5-17.5); LYMPH # 1.7 10^3/uL (1.5-5.0); MEAN CORPUSCULAR HEMOGLOBIN 30.1 pg (27.0-33.0); MEAN CORPUSCULAR HGB CONC 31.7 g/dl (32.0-36.5); MEAN CORPUSCULAR VOLUME 95.1 fl (80.0-96.0); MONO # 0.9 10^3/uL (0.0-0.8); MONO % 12.8 % (2.0-8.0); NEUTROPHILS % 55.8 % (36.0-66.0); PLATELET COUNT, AUTOMATED 227 10^3/uL (150-450); RED BLOOD COUNT 3.85 10^6/uL (4.30-6.10); WHITE BLOOD COUNT 7.2 10^3/uL (4.0-10.0)
[2022-05-05 07:43] LABS: C REACTIVE PROTEIN QUANTITATIV 8.3 MG/DL (<1.0); VANCOMYCIN RANDOM 20.3 UG/ML
[2022-05-05 07:45] LABS: CALCIUM LEVEL 8.5 MG/DL (8.5-10.1); CREATININE FOR GFR 6.16 MG/DL (0.70-1.30); GLOMERULAR FILTRATION RATE 10.7 (>60); POTASSIUM SERUM 4.3 MMOL/L (3.5-5.1)
[2022-05-05] MEDS: SUCROFERRIC OXYHYDROXIDE 500MG CHEW TAB (VELPHORO) PO SCH ×3 (09:27→18:00)
[2022-05-05] MEDS: CYANOCOBALAMIN 500 MCG TAB PO SCH (09:28)
[2022-05-05] MEDS: PANTOPRAZOLE 40MG TAB (PROTONIX) PO SCH (09:28)
[2022-05-05] MEDS: THIAMINE 100 MG TAB PO SCH (09:28)
[2022-05-05] MEDS: PERCOCET 5MG/325MG TAB PO PRN (09:29)
[2022-05-05] MEDS: OLANZapine 5 MG TAB PO SCH ×2 (09:30→20:56)
[2022-05-05] MEDS: FLUDROCORTISONE ACETATE 0.1 MG TAB PO SCH (09:30)
[2022-05-05] MEDS: HYDROCORTISONE 5MG TABLET PO SCH (09:30)
[2022-05-05] MEDS: METHADONE 10MG TAB PO SCH (09:31)
[2022-05-05] MEDS: LABETALOL 100MG TAB PO SCH ×2 (09:31→20:56)
[2022-05-05] MEDS: NEOSPORIN TOP OINT 15GM TOP SCH (09:32)
[2022-05-05] MEDS: PATIROMER SORBITEX CALCIUM 8.4 GM POWDER PACKET (VELTASSA) PO SCH (13:17)
[2022-05-05] MEDS: fluvoxaMINE MALEATE 50 MG TAB PO SCH (20:56)
[2022-05-05 22:00] VITALS: BP 149/86
[2022-05-06] MEDS: **hydrALAZINE** 10 MG TAB PO SCH ×3 (05:46→20:15)
[2022-05-06] MEDS: HEPARIN SOD (PORCINE) 5000UNITS/ML 1ML VIAL/SYRINGE SQ SCH ×3 (05:47→20:16)
[2022-05-06 06:00] VITALS: BP 121/64
[2022-05-06 07:14] LABS: BASO # 0.1 10^3/uL (0.0-0.2); BASO % 1.1 % (0.0-1.0); EOS # 0.4 10^3/uL (0.0-0.5); EOS % 5.9 % (0.0-3.0); HEMATOCRIT 33.5 % (42.0-52.0); HEMOGLOBIN 10.6 g/dl (13.5-17.5); LYMPH # 1.7 10^3/uL (1.5-5.0); LYMPH % 27.1 % (24.0-44.0); MEAN CORPUSCULAR HEMOGLOBIN 30.4 pg (27.0-33.0); MEAN CORPUSCULAR HGB CONC 31.6 g/dl (32.0-36.5); MONO # 0.8 10^3/uL (0.0-0.8); MONO % 13.4 % (2.0-8.0); NEUTROPHILS # 3.3 10^3/uL (1.5-8.5); NEUTROPHILS % 52.3 % (36.0-66.0); PLATELET COUNT, AUTOMATED 220 10^3/uL (150-450); RED BLOOD COUNT 3.49 10^6/uL (4.30-6.10); WHITE BLOOD COUNT 6.3 10^3/uL (4.0-10.0)
[2022-05-06 07:40] LABS: CALCIUM LEVEL 7.6 MG/DL (8.5-10.1); CREATININE FOR GFR 7.7 MG/DL (0.70-1.30); GLOMERULAR FILTRATION RATE 8.3 (>60); POTASSIUM SERUM 4.5 MMOL/L (3.5-5.1)
[2022-05-06] MEDS: OLANZapine 5 MG TAB PO SCH ×2 (10:03→20:15)
[2022-05-06] MEDS: HYDROCORTISONE 5MG TABLET PO SCH (10:03)
[2022-05-06] MEDS: CYANOCOBALAMIN 500 MCG TAB PO SCH (10:03)
[2022-05-06] MEDS: FLUDROCORTISONE ACETATE 0.1 MG TAB PO SCH (10:04)
[2022-05-06] MEDS: THIAMINE 100 MG TAB PO SCH (10:05)
[2022-05-06] MEDS: PANTOPRAZOLE 40MG TAB (PROTONIX) PO SCH (10:05)
[2022-05-06] MEDS: METHADONE 10MG TAB PO SCH (10:06)
[2022-05-06] MEDS: NEOSPORIN TOP OINT 15GM TOP SCH (10:06)
[2022-05-06] MEDS: PERCOCET 5MG/325MG TAB PO PRN ×2 (10:06→21:34)
[2022-05-06] MEDS: LABETALOL 100MG TAB PO SCH ×2 (10:07→20:16)
[2022-05-06] MEDS: SUCROFERRIC OXYHYDROXIDE 500MG CHEW TAB (VELPHORO) PO SCH ×3 (10:08→18:17)
[2022-05-06] MEDS: PATIROMER SORBITEX CALCIUM 8.4 GM POWDER PACKET (VELTASSA) PO SCH (12:53)
[2022-05-06 14:00] VITALS: BP 122/68
[2022-05-06] MEDS: ceFAZolin SOD 1 GM in D5W MINI-BAG PLUS 50 ML IV SCH (18:17)
[2022-05-06] MEDS: fluvoxaMINE MALEATE 50 MG TAB PO SCH (20:15)
[2022-05-06 20:45] VITALS: BP 120/76
[2022-05-07] MEDS: HEPARIN SOD (PORCINE) 5000UNITS/ML 1ML VIAL/SYRINGE SQ SCH (05:20)
[2022-05-07 05:36] VITALS: BP 136/72
[2022-05-07] MEDS: **hydrALAZINE** 10 MG TAB PO SCH ×3 (05:38→21:23)
[2022-05-07] MEDS ORDERED: SODIUM CHLORIDE 0.9% 1000ML IV PRN (06:00)
[2022-05-07] MEDS ORDERED: HEPARIN 1,000UNITS/ML 10ML VIAL (FOR RADIOLOGY & DIALYSIS ONLY) IV PRN (06:00)
[2022-05-07 06:50] LABS: BASO # 0.1 10^3/uL (0.0-0.2); BASO % 0.9 % (0.0-1.0); EOS # 0.4 10^3/uL (0.0-0.5); EOS % 5.1 % (0.0-3.0); HEMATOCRIT 33.4 % (42.0-52.0); HEMOGLOBIN 10.9 g/dl (13.5-17.5); LYMPH # 1.6 10^3/uL (1.5-5.0); LYMPH % 23.4 % (24.0-44.0); MEAN CORPUSCULAR HEMOGLOBIN 30.2 pg (27.0-33.0); MEAN CORPUSCULAR HGB CONC 32.6 g/dl (32.0-36.5); MEAN CORPUSCULAR VOLUME 92.5 fl (80.0-96.0); MONO # 0.6 10^3/uL (0.0-0.8); NEUTROPHILS # 4.4 10^3/uL (1.5-8.5); NEUTROPHILS % 62.5 % (36.0-66.0); PLATELET COUNT, AUTOMATED 229 10^3/uL (150-450); RED BLOOD COUNT 3.61 10^6/uL (4.30-6.10)
[2022-05-07 07:38] LABS: C REACTIVE PROTEIN QUANTITATIV 4.1 MG/DL (<1.0)
[2022-05-07 07:52] LABS: CALCIUM LEVEL 7.4 MG/DL (8.5-10.1); CREATININE FOR GFR 9.38 MG/DL (0.70-1.30); GLOMERULAR FILTRATION RATE 6.6 (>60); POTASSIUM SERUM 4.9 MMOL/L (3.5-5.1)
[2022-05-07] MEDS: SUCROFERRIC OXYHYDROXIDE 500MG CHEW TAB (VELPHORO) PO SCH ×3 (08:00→18:00)
[2022-05-07] MEDS: DARBEPOETIN 200MCG/0.4ML *DIALYSIS* SYRINGE IV SCH (08:18)
[2022-05-07] MEDS: NEOSPORIN TOP OINT 15GM TOP SCH (09:00)
[2022-05-07] MEDS: CYANOCOBALAMIN 500 MCG TAB PO SCH (11:53)
[2022-05-07] MEDS: OLANZapine 5 MG TAB PO SCH ×2 (11:53→21:09)
[2022-05-07] MEDS: HYDROCORTISONE 10 MG TAB PO SCH (11:53)
[2022-05-07] MEDS: FLUDROCORTISONE ACETATE 0.1 MG TAB PO SCH (11:54)
[2022-05-07] MEDS: LABETALOL 100MG TAB PO SCH ×2 (11:54→21:09)
[2022-05-07] MEDS: METHADONE 10MG TAB PO SCH (11:55)
[2022-05-07] MEDS: PANTOPRAZOLE 40MG TAB (PROTONIX) PO SCH (11:55)
[2022-05-07] MEDS: PERCOCET 5MG/325MG TAB PO PRN ×2 (11:56→21:10)
[2022-05-07] MEDS: THIAMINE 100 MG TAB PO SCH (11:58)
[2022-05-07] MEDS: PATIROMER SORBITEX CALCIUM 8.4 GM POWDER PACKET (VELTASSA) PO SCH (12:00)
[2022-05-07] MEDS ORDERED: ceFAZolin 2 GM/D5W 50 ML IV BAG As Ordered ONE (14:52)
[2022-05-07] MEDS ORDERED: BUPIVACAINE/EPIN 0.5% 30ML VIAL As Ordered ONE (15:15)
[2022-05-07] MEDS ORDERED: LIDOCAINE 1% SDV 30ML VIAL As Ordered ONE (15:15)
[2022-05-07] MEDS ORDERED: HEPARIN SOD (PORCINE) 5000UNITS/ML 1ML VIAL/SYRINGE As Ordered ONE (15:15)
[2022-05-07] MEDS ORDERED: PAPAVERINE HCL 60MG 2ML VIAL (30MG/ML) As Ordered ONE (15:15)
[2022-05-07] MEDS ORDERED: fentaNYL 100 MCG/2 ML INJECTION IV PRN (16:55)
[2022-05-07] MEDS ORDERED: ONDANSETRON 4MG 2ML VIAL IV PRN (16:55)
[2022-05-07] MEDS ORDERED: oxyCODONE 5MG TAB PO PRN (16:55)
[2022-05-07 18:15] VITALS: BP 139/77
[2022-05-07] MEDS: ceFAZolin SOD 1 GM in D5W MINI-BAG PLUS 50 ML IV SCH (18:40)
[2022-05-07 18:45] VITALS: BP 140/78
[2022-05-07 19:51] VITALS: BP 145/79
[2022-05-07] MEDS: fluvoxaMINE MALEATE 50 MG TAB PO SCH (21:08)
[2022-05-07 21:46] VITALS: BP 153/88
[2022-05-08 00:03] VITALS: BP 138/80
[2022-05-08 02:37] VITALS: BP 140/83
[2022-05-08] MEDS: PERCOCET 5MG/325MG TAB PO PRN ×2 (04:36→10:48)
[2022-05-08] MEDS: **hydrALAZINE** 10 MG TAB PO SCH ×3 (06:00→20:32)
[2022-05-08 06:10] LABS: BASO % 0.2 % (0.0-1.0); HEMOGLOBIN 10.6 g/dl (13.5-17.5); LYMPH # 0.4 10^3/uL (1.5-5.0); LYMPH % 6.2 % (24.0-44.0); MEAN CORPUSCULAR HEMOGLOBIN 29.3 pg (27.0-33.0); MEAN CORPUSCULAR HGB CONC 31.2 g/dl (32.0-36.5); MEAN CORPUSCULAR VOLUME 93.9 fl (80.0-96.0); MONO # 0.2 10^3/uL (0.0-0.8); MONO % 2.9 % (2.0-8.0); NEUTROPHILS % 90.2 % (36.0-66.0); PLATELET COUNT, AUTOMATED 208 10^3/uL (150-450); RED BLOOD COUNT 3.62 10^6/uL (4.30-6.10); WHITE BLOOD COUNT 6.6 10^3/uL (4.0-10.0)
[2022-05-08 06:14] VITALS: BP 139/81
[2022-05-08 06:45] LABS: CREATININE FOR GFR 6.61 MG/DL (0.70-1.30); GLOMERULAR FILTRATION RATE 9.9 (>60); POTASSIUM SERUM 4.7 MMOL/L (3.5-5.1)
[2022-05-08] MEDS: PANTOPRAZOLE 40MG TAB (PROTONIX) PO SCH (08:36)
[2022-05-08] MEDS: CYANOCOBALAMIN 500 MCG TAB PO SCH (08:37)
[2022-05-08] MEDS: METHADONE 10MG TAB PO SCH (08:37)
[2022-05-08] MEDS: SUCROFERRIC OXYHYDROXIDE 500MG CHEW TAB (VELPHORO) PO SCH ×3 (08:37→17:16)
[2022-05-08] MEDS: THIAMINE 100 MG TAB PO SCH (08:37)
[2022-05-08] MEDS: HYDROCORTISONE 10 MG TAB PO SCH (08:37)
[2022-05-08] MEDS: FLUDROCORTISONE ACETATE 0.1 MG TAB PO SCH (08:38)
[2022-05-08] MEDS: OLANZapine 5 MG TAB PO SCH ×2 (08:38→20:32)
[2022-05-08] MEDS: LABETALOL 100MG TAB PO SCH ×2 (08:38→20:32)
[2022-05-08] MEDS: NEOSPORIN TOP OINT 15GM TOP SCH (08:42)
[2022-05-08 09:13] VITALS: BP 170/96
[2022-05-08] MEDS: CEPHALEXIN 500 MG CAP PO SCH ×2 (10:43→20:27)
[2022-05-08] MEDS: PATIROMER SORBITEX CALCIUM 8.4 GM POWDER PACKET (VELTASSA) PO SCH (12:12)
[2022-05-08] MEDS: HEPARIN SOD (PORCINE) 5000UNITS/ML 1ML VIAL/SYRINGE SQ SCH ×2 (15:00→20:33)
[2022-05-08] MEDS: fluvoxaMINE MALEATE 50 MG TAB PO SCH (20:32)
[2022-05-08 23:37] VITALS: BP 144/85
[2022-05-09] MEDS: HEPARIN SOD (PORCINE) 5000UNITS/ML 1ML VIAL/SYRINGE SQ SCH ×3 (05:14→21:58)
[2022-05-09] MEDS: PERCOCET 5MG/325MG TAB PO PRN ×3 (05:14→19:17)
[2022-05-09 05:18] VITALS: BP 141/83
[2022-05-09] MEDS: **hydrALAZINE** 10 MG TAB PO SCH ×3 (05:18→21:49)
[2022-05-09] MEDS ORDERED: HEPARIN 1,000UNITS/ML 10ML VIAL (FOR RADIOLOGY & DIALYSIS ONLY) IV PRN (06:00)
[2022-05-09 06:23] LABS: BASO % 0.1 % (0.0-1.0); HEMATOCRIT 32.8 % (42.0-52.0); HEMOGLOBIN 10.2 g/dl (13.5-17.5); LYMPH # 0.6 10^3/uL (1.5-5.0); LYMPH % 5.6 % (24.0-44.0); MEAN CORPUSCULAR HEMOGLOBIN 29.1 pg (27.0-33.0); MEAN CORPUSCULAR HGB CONC 31.1 g/dl (32.0-36.5); MEAN CORPUSCULAR VOLUME 93.7 fl (80.0-96.0); MONO # 0.5 10^3/uL (0.0-0.8); MONO % 4.9 % (2.0-8.0); NEUTROPHILS # 9.7 10^3/uL (1.5-8.5); NEUTROPHILS % 88.7 % (36.0-66.0); PLATELET COUNT, AUTOMATED 201 10^3/uL (150-450)
[2022-05-09 06:56] LABS: CALCIUM LEVEL 7.9 MG/DL (8.5-10.1); CREATININE FOR GFR 8.02 MG/DL (0.70-1.30); GLOMERULAR FILTRATION RATE 7.9 (>60); POTASSIUM SERUM 5.2 MMOL/L (3.5-5.1)
[2022-05-09 07:49] LABS: C REACTIVE PROTEIN QUANTITATIV 2.8 MG/DL (<1.0)
[2022-05-09] MEDS ORDERED: SODIUM CHLORIDE 0.9% 1000ML IV PRN (11:30)
[2022-05-09] MEDS: SUCROFERRIC OXYHYDROXIDE 500MG CHEW TAB (VELPHORO) PO SCH ×3 (12:30→17:12)
[2022-05-09] MEDS: CYANOCOBALAMIN 500 MCG TAB PO SCH (13:05)
[2022-05-09] MEDS: OLANZapine 5 MG TAB PO SCH ×2 (13:06→21:57)
[2022-05-09] MEDS: CEPHALEXIN 500 MG CAP PO SCH ×2 (13:06→21:57)
[2022-05-09] MEDS: PATIROMER SORBITEX CALCIUM 8.4 GM POWDER PACKET (VELTASSA) PO SCH (13:06)
[2022-05-09] MEDS: HYDROCORTISONE 10 MG TAB PO SCH (13:06)
[2022-05-09] MEDS: PANTOPRAZOLE 40MG TAB (PROTONIX) PO SCH (13:10)
[2022-05-09] MEDS: THIAMINE 100 MG TAB PO SCH (13:10)
[2022-05-09] MEDS: LABETALOL 100MG TAB PO SCH ×2 (13:11→21:57)
[2022-05-09] MEDS: METHADONE 10MG TAB PO SCH (13:12)
[2022-05-09] MEDS: FLUDROCORTISONE ACETATE 0.1 MG TAB PO SCH (13:12)
[2022-05-09] MEDS: NEOSPORIN TOP OINT 15GM TOP SCH (13:14)
[2022-05-09] MEDS: fluvoxaMINE MALEATE 50 MG TAB PO SCH (21:58)
[2022-05-10] MEDS: PERCOCET 5MG/325MG TAB PO PRN ×3 (02:23→21:40)
[2022-05-10] MEDS: HEPARIN SOD (PORCINE) 5000UNITS/ML 1ML VIAL/SYRINGE SQ SCH ×3 (06:11→21:36)
[2022-05-10] MEDS: **hydrALAZINE** 10 MG TAB PO SCH ×3 (06:11→21:40)
[2022-05-10 06:46] VITALS: BP 149/84
[2022-05-10 08:06] LABS: BASO % 0.3 % (0.0-1.0); EOS # 0.1 10^3/uL (0.0-0.5); EOS % 0.6 % (0.0-3.0); HEMATOCRIT 35.3 % (42.0-52.0); LYMPH # 1.4 10^3/uL (1.5-5.0); MEAN CORPUSCULAR HGB CONC 31.2 g/dl (32.0-36.5); MEAN CORPUSCULAR VOLUME 96.2 fl (80.0-96.0); MONO # 0.8 10^3/uL (0.0-0.8); MONO % 9.3 % (2.0-8.0); NEUTROPHILS # 6.5 10^3/uL (1.5-8.5); NEUTROPHILS % 72.7 % (36.0-66.0); PLATELET COUNT, AUTOMATED 232 10^3/uL (150-450); RED BLOOD COUNT 3.67 10^6/uL (4.30-6.10)
[2022-05-10 08:29] LABS: C REACTIVE PROTEIN QUANTITATIV 1.9 MG/DL (<1.0)
[2022-05-10 08:30] LABS: CREATININE FOR GFR 5.53 MG/DL (0.70-1.30); GLOMERULAR FILTRATION RATE 12.1 (>60); POTASSIUM SERUM 4.5 MMOL/L (3.5-5.1)
[2022-05-10] MEDS: CEPHALEXIN 500 MG CAP PO SCH ×2 (08:38→21:36)
[2022-05-10] MEDS: SUCROFERRIC OXYHYDROXIDE 500MG CHEW TAB (VELPHORO) PO SCH ×3 (08:38→18:00)
[2022-05-10] MEDS: THIAMINE 100 MG TAB PO SCH (08:38)
[2022-05-10] MEDS: CYANOCOBALAMIN 500 MCG TAB PO SCH (08:39)
[2022-05-10] MEDS: FLUDROCORTISONE ACETATE 0.1 MG TAB PO SCH (08:39)
[2022-05-10] MEDS: OLANZapine 5 MG TAB PO SCH ×2 (08:39→21:35)
[2022-05-10] MEDS: METHADONE 10MG TAB PO SCH (08:39)
[2022-05-10] MEDS: HYDROCORTISONE 10 MG TAB PO SCH (08:40)
[2022-05-10] MEDS: PANTOPRAZOLE 40MG TAB (PROTONIX) PO SCH (08:40)
[2022-05-10] MEDS: LABETALOL 100MG TAB PO SCH ×2 (08:45→21:36)
[2022-05-10] MEDS: NEOSPORIN TOP OINT 15GM TOP SCH (08:46)
[2022-05-10] MEDS: PATIROMER SORBITEX CALCIUM 8.4 GM POWDER PACKET (VELTASSA) PO SCH (11:11)
[2022-05-10] MEDS: fluvoxaMINE MALEATE 50 MG TAB PO SCH (21:35)
[2022-05-11] MEDS ORDERED: HEPARIN 1,000UNITS/ML 10ML VIAL (FOR RADIOLOGY & DIALYSIS ONLY) IV PRN (06:00)
[2022-05-11] MEDS ORDERED: SODIUM CHLORIDE 0.9% 1000ML IV PRN (06:00)
[2022-05-11] MEDS: **hydrALAZINE** 10 MG TAB PO SCH ×3 (06:24→21:49)
[2022-05-11] MEDS: PERCOCET 5MG/325MG TAB PO PRN ×2 (06:24→17:59)
[2022-05-11] MEDS: HEPARIN SOD (PORCINE) 5000UNITS/ML 1ML VIAL/SYRINGE SQ SCH ×3 (06:25→21:57)
[2022-05-11 06:47] VITALS: BP 155/90
[2022-05-11] MEDS: OLANZapine 5 MG TAB PO SCH ×2 (07:49→21:57)
[2022-05-11] MEDS: CYANOCOBALAMIN 500 MCG TAB PO SCH (07:49)
[2022-05-11] MEDS: CEPHALEXIN 500 MG CAP PO SCH ×2 (07:49→21:57)
[2022-05-11] MEDS: HYDROCORTISONE 10 MG TAB PO SCH (07:49)
[2022-05-11] MEDS: FLUDROCORTISONE ACETATE 0.1 MG TAB PO SCH (07:52)
[2022-05-11] MEDS: PANTOPRAZOLE 40MG TAB (PROTONIX) PO SCH (07:52)
[2022-05-11] MEDS: METHADONE 10MG TAB PO SCH (07:52)
[2022-05-11] MEDS: THIAMINE 100 MG TAB PO SCH (07:52)
[2022-05-11] MEDS: SUCROFERRIC OXYHYDROXIDE 500MG CHEW TAB (VELPHORO) PO SCH ×3 (08:00→17:35)
[2022-05-11] MEDS: LABETALOL 100MG TAB PO SCH ×2 (09:00→21:57)
[2022-05-11] MEDS: NEOSPORIN TOP OINT 15GM TOP SCH (17:46)
[2022-05-11] MEDS: PATIROMER SORBITEX CALCIUM 8.4 GM POWDER PACKET (VELTASSA) PO SCH (17:46)
[2022-05-11 20:29] VITALS: BP 128/87
[2022-05-11] MEDS: fluvoxaMINE MALEATE 50 MG TAB PO SCH (21:57)
[2022-05-12] MEDS: PERCOCET 5MG/325MG TAB PO PRN ×3 (03:38→20:45)
[2022-05-12] MEDS: **hydrALAZINE** 10 MG TAB PO SCH ×3 (06:00→22:00)
[2022-05-12] MEDS: HEPARIN SOD (PORCINE) 5000UNITS/ML 1ML VIAL/SYRINGE SQ SCH ×3 (06:00→22:23)
[2022-05-12 06:08] VITALS: BP 130/86
[2022-05-12] MEDS: CYANOCOBALAMIN 500 MCG TAB PO SCH (09:03)
[2022-05-12] MEDS: METHADONE 10MG TAB PO SCH (09:03)
[2022-05-12] MEDS: PANTOPRAZOLE 40MG TAB (PROTONIX) PO SCH (09:03)
[2022-05-12] MEDS: FLUDROCORTISONE ACETATE 0.1 MG TAB PO SCH (09:03)
[2022-05-12] MEDS: SUCROFERRIC OXYHYDROXIDE 500MG CHEW TAB (VELPHORO) PO SCH ×3 (09:03→17:56)
[2022-05-12] MEDS: THIAMINE 100 MG TAB PO SCH (09:04)
[2022-05-12] MEDS: OLANZapine 5 MG TAB PO SCH ×2 (09:04→20:44)
[2022-05-12] MEDS: CEPHALEXIN 500 MG CAP PO SCH ×2 (09:04→20:44)
[2022-05-12] MEDS: HYDROCORTISONE 10 MG TAB PO SCH (09:04)
[2022-05-12] MEDS: LABETALOL 100MG TAB PO SCH ×2 (09:04→20:45)
[2022-05-12] MEDS: NEOSPORIN TOP OINT 15GM TOP SCH (09:05)
[2022-05-12 13:12] VITALS: BP 128/83
[2022-05-12] MEDS: PATIROMER SORBITEX CALCIUM 8.4 GM POWDER PACKET (VELTASSA) PO SCH (13:18)
[2022-05-12] MEDS: fluvoxaMINE MALEATE 50 MG TAB PO SCH (20:43)
[2022-05-12 21:55] VITALS: BP 132/83
[2022-05-13 05:03] VITALS: BP 138/91
[2022-05-13] MEDS: HEPARIN SOD (PORCINE) 5000UNITS/ML 1ML VIAL/SYRINGE SQ SCH ×4 (05:07→22:26)
[2022-05-13] MEDS: PERCOCET 5MG/325MG TAB PO PRN ×2 (05:08→13:15)
[2022-05-13] MEDS: **hydrALAZINE** 10 MG TAB PO SCH ×3 (05:41→22:00)
[2022-05-13] MEDS: CYANOCOBALAMIN 500 MCG TAB PO SCH (09:27)
[2022-05-13] MEDS: HYDROCORTISONE 10 MG TAB PO SCH (09:27)
[2022-05-13] MEDS: OLANZapine 5 MG TAB PO SCH ×2 (09:27→21:05)
[2022-05-13] MEDS: SUCROFERRIC OXYHYDROXIDE 500MG CHEW TAB (VELPHORO) PO SCH ×3 (09:27→18:00)
[2022-05-13] MEDS: FLUDROCORTISONE ACETATE 0.1 MG TAB PO SCH (09:28)
[2022-05-13] MEDS: PANTOPRAZOLE 40MG TAB (PROTONIX) PO SCH (09:28)
[2022-05-13] MEDS: CEPHALEXIN 500 MG CAP PO SCH ×2 (09:28→21:04)
[2022-05-13] MEDS: METHADONE 10MG TAB PO SCH (09:28)
[2022-05-13] MEDS: THIAMINE 100 MG TAB PO SCH (09:28)
[2022-05-13] MEDS: LABETALOL 100MG TAB PO SCH ×2 (09:28→21:05)
[2022-05-13] MEDS: NEOSPORIN TOP OINT 15GM TOP SCH (09:29)
[2022-05-13] MEDS: PATIROMER SORBITEX CALCIUM 8.4 GM POWDER PACKET (VELTASSA) PO SCH (12:00)
[2022-05-13 13:08] VITALS: BP 149/80
[2022-05-13] MEDS: fluvoxaMINE MALEATE 50 MG TAB PO SCH (21:05)
[2022-05-14] MEDS: PERCOCET 5MG/325MG TAB PO PRN ×2 (03:59→16:47)
[2022-05-14] MEDS ORDERED: SODIUM CHLORIDE 0.9% 1000ML IV PRN (05:15)
[2022-05-14] MEDS ORDERED: HEPARIN 1,000UNITS/ML 10ML VIAL (FOR RADIOLOGY & DIALYSIS ONLY) IV PRN (05:15)
[2022-05-14] MEDS ORDERED: HEPARIN 1,000UNITS/ML 10ML VIAL (FOR RADIOLOGY & DIALYSIS ONLY) XX SCH (05:15)
[2022-05-14 05:46] VITALS: BP 163/89
[2022-05-14] MEDS: **hydrALAZINE** 10 MG TAB PO SCH ×3 (05:48→22:56)
[2022-05-14] MEDS: HEPARIN SOD (PORCINE) 5000UNITS/ML 1ML VIAL/SYRINGE SQ SCH ×3 (05:48→22:00)
[2022-05-14] MEDS: THIAMINE 100 MG TAB PO SCH (08:39)
[2022-05-14] MEDS: PANTOPRAZOLE 40MG TAB (PROTONIX) PO SCH (08:39)
[2022-05-14] MEDS: SUCROFERRIC OXYHYDROXIDE 500MG CHEW TAB (VELPHORO) PO SCH ×3 (08:39→17:30)
[2022-05-14] MEDS: CYANOCOBALAMIN 500 MCG TAB PO SCH (08:40)
[2022-05-14] MEDS: OLANZapine 5 MG TAB PO SCH ×2 (08:40→21:33)
[2022-05-14] MEDS: LABETALOL 100MG TAB PO SCH ×2 (08:40→21:34)
[2022-05-14] MEDS: FLUDROCORTISONE ACETATE 0.1 MG TAB PO SCH (08:40)
[2022-05-14] MEDS: CEPHALEXIN 500 MG CAP PO SCH (08:40)
[2022-05-14] MEDS: METHADONE 10MG TAB PO SCH (08:40)
[2022-05-14] MEDS: HYDROCORTISONE 10 MG TAB PO SCH (08:40)
[2022-05-14] MEDS: NEOSPORIN TOP OINT 15GM TOP SCH (08:41)
[2022-05-14 09:52] LABS: BASO # 0.1 10^3/uL (0.0-0.2); BASO % 0.5 % (0.0-1.0); EOS # 0.4 10^3/uL (0.0-0.5); EOS % 3.5 % (0.0-3.0); HEMATOCRIT 34.1 % (42.0-52.0); HEMOGLOBIN 10.9 g/dl (13.5-17.5); LYMPH # 1.7 10^3/uL (1.5-5.0); LYMPH % 15.5 % (24.0-44.0); MEAN CORPUSCULAR HEMOGLOBIN 30.4 pg (27.0-33.0); MEAN CORPUSCULAR VOLUME 95.3 fl (80.0-96.0); MONO # 0.8 10^3/uL (0.0-0.8); MONO % 7.2 % (2.0-8.0); NEUTROPHILS % 72.5 % (36.0-66.0); PLATELET COUNT, AUTOMATED 191 10^3/uL (150-450); RED BLOOD COUNT 3.58 10^6/uL (4.30-6.10); WHITE BLOOD COUNT 11.1 10^3/uL (4.0-10.0)
[2022-05-14 10:18] LABS: C REACTIVE PROTEIN QUANTITATIV 6.4 MG/DL (<1.0)
[2022-05-14 10:25] LABS: CALCIUM LEVEL 8.1 MG/DL (8.5-10.1); CREATININE FOR GFR 9.02 MG/DL (0.70-1.30); GLOMERULAR FILTRATION RATE 6.9 (>60); POTASSIUM SERUM 4.6 MMOL/L (3.5-5.1)
[2022-05-14] MEDS: DOXYCYCLINE HYCLATE 100MG TABLET PO SCH ×2 (10:28→21:34)
[2022-05-14] MEDS: PATIROMER SORBITEX CALCIUM 8.4 GM POWDER PACKET (VELTASSA) PO SCH (11:49)
[2022-05-14] MEDS: fluvoxaMINE MALEATE 50 MG TAB PO SCH (21:33)
[2022-05-15] MEDS: PERCOCET 5MG/325MG TAB PO PRN ×2 (04:21→16:54)
[2022-05-15 05:28] VITALS: BP 158/87
[2022-05-15] MEDS: **hydrALAZINE** 10 MG TAB PO SCH ×3 (05:55→21:25)
[2022-05-15] MEDS: HEPARIN SOD (PORCINE) 5000UNITS/ML 1ML VIAL/SYRINGE SQ SCH ×3 (05:56→21:21)
[2022-05-15 07:56] LABS: BASO % 0.4 % (0.0-1.0); EOS # 0.3 10^3/uL (0.0-0.5); EOS % 2.7 % (0.0-3.0); HEMATOCRIT 39.2 % (42.0-52.0); HEMOGLOBIN 12.2 g/dl (13.5-17.5); LYMPH # 1.4 10^3/uL (1.5-5.0); LYMPH % 14.4 % (24.0-44.0); MEAN CORPUSCULAR HEMOGLOBIN 29.6 pg (27.0-33.0); MEAN CORPUSCULAR HGB CONC 31.1 g/dl (32.0-36.5); MEAN CORPUSCULAR VOLUME 95.1 fl (80.0-96.0); MONO % 10.2 % (2.0-8.0); NEUTROPHILS # 7.1 10^3/uL (1.5-8.5); NEUTROPHILS % 71.7 % (36.0-66.0); PLATELET COUNT, AUTOMATED 205 10^3/uL (150-450); RED BLOOD COUNT 4.12 10^6/uL (4.30-6.10); WHITE BLOOD COUNT 9.9 10^3/uL (4.0-10.0)
[2022-05-15] MEDS: SUCROFERRIC OXYHYDROXIDE 500MG CHEW TAB (VELPHORO) PO SCH ×4 (08:00→17:56)
[2022-05-15 08:15] LABS: C REACTIVE PROTEIN QUANTITATIV 8.7 MG/DL (<1.0); CALCIUM LEVEL 8.3 MG/DL (8.5-10.1); CREATININE FOR GFR 6.26 MG/DL (0.70-1.30); GLOMERULAR FILTRATION RATE 10.5 (>60); POTASSIUM SERUM 4.4 MMOL/L (3.5-5.1)
[2022-05-15] MEDS: CYANOCOBALAMIN 500 MCG TAB PO SCH (08:59)
[2022-05-15] MEDS: METHADONE 10MG TAB PO SCH (08:59)
[2022-05-15] MEDS: DOXYCYCLINE HYCLATE 100MG TABLET PO SCH ×2 (08:59→21:20)
[2022-05-15] MEDS: FLUDROCORTISONE ACETATE 0.1 MG TAB PO SCH (08:59)
[2022-05-15] MEDS: PANTOPRAZOLE 40MG TAB (PROTONIX) PO SCH (09:00)
[2022-05-15] MEDS: HYDROCORTISONE 10 MG TAB PO SCH (09:01)
[2022-05-15] MEDS: LABETALOL 100MG TAB PO SCH ×2 (09:01→21:21)
[2022-05-15] MEDS: OLANZapine 5 MG TAB PO SCH ×2 (09:01→21:20)
[2022-05-15] MEDS: THIAMINE 100 MG TAB PO SCH (09:02)
[2022-05-15] MEDS: NEOSPORIN TOP OINT 15GM TOP SCH (09:52)
[2022-05-15] MEDS: PATIROMER SORBITEX CALCIUM 8.4 GM POWDER PACKET (VELTASSA) PO SCH (13:04)
[2022-05-15] MEDS: fluvoxaMINE MALEATE 50 MG TAB PO SCH (21:20)
[2022-05-16] MEDS: PERCOCET 5MG/325MG TAB PO PRN ×2 (05:22→22:34)
[2022-05-16] MEDS: HEPARIN SOD (PORCINE) 5000UNITS/ML 1ML VIAL/SYRINGE SQ SCH ×3 (05:22→22:18)
[2022-05-16] MEDS: **hydrALAZINE** 10 MG TAB PO SCH ×3 (05:24→22:00)
[2022-05-16 05:49] VITALS: BP 146/87
[2022-05-16] MEDS ORDERED: HEPARIN 1,000UNITS/ML 10ML VIAL (FOR RADIOLOGY & DIALYSIS ONLY) XX SCH (07:15)
[2022-05-16] MEDS ORDERED: HEPARIN 1,000UNITS/ML 10ML VIAL (FOR RADIOLOGY & DIALYSIS ONLY) IV PRN (07:15)
[2022-05-16] MEDS: SUCROFERRIC OXYHYDROXIDE 500MG CHEW TAB (VELPHORO) PO SCH ×3 (08:00→17:00)
[2022-05-16] MEDS: OLANZapine 5 MG TAB PO SCH ×2 (13:00→22:17)
[2022-05-16] MEDS: PATIROMER SORBITEX CALCIUM 8.4 GM POWDER PACKET (VELTASSA) PO SCH (13:00)
[2022-05-16] MEDS: CYANOCOBALAMIN 500 MCG TAB PO SCH (13:00)
[2022-05-16] MEDS: HYDROCORTISONE 10 MG TAB PO SCH (13:01)
[2022-05-16] MEDS: PANTOPRAZOLE 40MG TAB (PROTONIX) PO SCH (13:01)
[2022-05-16] MEDS: DOXYCYCLINE HYCLATE 100MG TABLET PO SCH ×2 (13:03→22:17)
[2022-05-16] MEDS: FLUDROCORTISONE ACETATE 0.1 MG TAB PO SCH (13:03)
[2022-05-16] MEDS: THIAMINE 100 MG TAB PO SCH (13:04)
[2022-05-16] MEDS: LABETALOL 100MG TAB PO SCH ×2 (13:04→22:18)
[2022-05-16] MEDS: METHADONE 10MG TAB PO SCH (13:04)
[2022-05-16] MEDS: NEOSPORIN TOP OINT 15GM TOP SCH (13:05)
[2022-05-16] MEDS: ACETAMINOPHEN TAB 650MG DOSE (2X325MG) PO PRN (16:59)
[2022-05-16] MEDS: fluvoxaMINE MALEATE 50 MG TAB PO SCH (22:17)
[2022-05-17] MEDS: **hydrALAZINE** 10 MG TAB PO SCH ×3 (06:00→19:42)
[2022-05-17] MEDS: HEPARIN SOD (PORCINE) 5000UNITS/ML 1ML VIAL/SYRINGE SQ SCH ×3 (06:20→20:41)
[2022-05-17 07:00] VITALS: BP 126/70
[2022-05-17] MEDS ORDERED: HEPARIN 1,000UNITS/ML 10ML VIAL (FOR RADIOLOGY & DIALYSIS ONLY) XX SCH (07:25)
[2022-05-17] MEDS ORDERED: HEPARIN 1,000UNITS/ML 10ML VIAL (FOR RADIOLOGY & DIALYSIS ONLY) IV PRN (07:25)
[2022-05-17] MEDS: SUCROFERRIC OXYHYDROXIDE 500MG CHEW TAB (VELPHORO) PO SCH ×3 (08:00→18:18)
[2022-05-17] MEDS: PATIROMER SORBITEX CALCIUM 8.4 GM POWDER PACKET (VELTASSA) PO SCH (14:08)
[2022-05-17] MEDS: PERCOCET 5MG/325MG TAB PO PRN (14:09)
[2022-05-17] MEDS: OLANZapine 5 MG TAB PO SCH ×2 (14:09→19:54)
[2022-05-17] MEDS: CYANOCOBALAMIN 500 MCG TAB PO SCH (14:10)
[2022-05-17] MEDS: HYDROCORTISONE 10 MG TAB PO SCH (14:10)
[2022-05-17] MEDS: PANTOPRAZOLE 40MG TAB (PROTONIX) PO SCH (14:10)
[2022-05-17] MEDS: DOXYCYCLINE HYCLATE 100MG TABLET PO SCH ×2 (14:13→19:52)
[2022-05-17] MEDS: FLUDROCORTISONE ACETATE 0.1 MG TAB PO SCH (14:13)
[2022-05-17] MEDS: NEOSPORIN TOP OINT 15GM TOP SCH (14:14)
[2022-05-17] MEDS: LABETALOL 100MG TAB PO SCH ×2 (14:14→19:53)
[2022-05-17] MEDS: THIAMINE 100 MG TAB PO SCH (14:14)
[2022-05-17] MEDS: METHADONE 10MG TAB PO SCH (14:14)
[2022-05-17 19:14] VITALS: BP 127/78
[2022-05-17] MEDS: fluvoxaMINE MALEATE 50 MG TAB PO SCH (19:54)
[2022-05-18 05:58] VITALS: BP 126/76
[2022-05-18] MEDS: **hydrALAZINE** 10 MG TAB PO SCH ×3 (06:00→21:32)
[2022-05-18] MEDS: HEPARIN SOD (PORCINE) 5000UNITS/ML 1ML VIAL/SYRINGE SQ SCH ×3 (06:02→20:22)
[2022-05-18] MEDS: PERCOCET 5MG/325MG TAB PO PRN (06:03)
[2022-05-18 07:28] LABS: CALCIUM LEVEL 8.6 MG/DL (8.5-10.1); CREATININE FOR GFR 8.2 MG/DL (0.70-1.30); GLOMERULAR FILTRATION RATE 7.7 (>60); POTASSIUM SERUM 4.7 MMOL/L (3.5-5.1)
[2022-05-18] MEDS: SUCROFERRIC OXYHYDROXIDE 500MG CHEW TAB (VELPHORO) PO SCH ×3 (08:00→17:34)
[2022-05-18] MEDS: CYANOCOBALAMIN 500 MCG TAB PO SCH (09:50)
[2022-05-18] MEDS: HYDROCORTISONE 10 MG TAB PO SCH (09:50)
[2022-05-18] MEDS: DOXYCYCLINE HYCLATE 100MG TABLET PO SCH ×2 (09:51→20:22)
[2022-05-18] MEDS: ACETAMINOPHEN TAB 650MG DOSE (2X325MG) PO PRN ×2 (09:51→17:36)
[2022-05-18] MEDS: OLANZapine 5 MG TAB PO SCH ×2 (09:51→20:23)
[2022-05-18] MEDS: METHADONE 10MG TAB PO SCH (09:52)
[2022-05-18] MEDS: FLUDROCORTISONE ACETATE 0.1 MG TAB PO SCH (09:52)
[2022-05-18] MEDS: PANTOPRAZOLE 40MG TAB (PROTONIX) PO SCH (09:52)
[2022-05-18] MEDS: LABETALOL 100MG TAB PO SCH ×2 (09:52→20:22)
[2022-05-18] MEDS: THIAMINE 100 MG TAB PO SCH (09:52)
[2022-05-18] MEDS: NEOSPORIN TOP OINT 15GM TOP SCH (09:53)
[2022-05-18] MEDS: PATIROMER SORBITEX CALCIUM 8.4 GM POWDER PACKET (VELTASSA) PO SCH (11:54)
[2022-05-18] MEDS: fluvoxaMINE MALEATE 50 MG TAB PO SCH (20:23)
[2022-05-19 04:30] VITALS: BP 127/78
[2022-05-19] MEDS: **hydrALAZINE** 10 MG TAB PO SCH ×3 (05:08→21:36)
[2022-05-19] MEDS: HEPARIN SOD (PORCINE) 5000UNITS/ML 1ML VIAL/SYRINGE SQ SCH ×3 (05:10→20:55)
[2022-05-19] MEDS: PERCOCET 5MG/325MG TAB PO PRN (06:04)
[2022-05-19] MEDS: SUCROFERRIC OXYHYDROXIDE 500MG CHEW TAB (VELPHORO) PO SCH ×3 (08:00→18:00)
[2022-05-19] MEDS ORDERED: SODIUM CHLORIDE 0.9% 1000ML IV PRN (08:55)
[2022-05-19] MEDS ORDERED: HEPARIN 1,000UNITS/ML 10ML VIAL (FOR RADIOLOGY & DIALYSIS ONLY) IV PRN (08:55)
[2022-05-19] MEDS ORDERED: HEPARIN 1,000UNITS/ML 10ML VIAL (FOR RADIOLOGY & DIALYSIS ONLY) XX SCH (08:55)
[2022-05-19] MEDS: PATIROMER SORBITEX CALCIUM 8.4 GM POWDER PACKET (VELTASSA) PO SCH (14:41)
[2022-05-19] MEDS: PANTOPRAZOLE 40MG TAB (PROTONIX) PO SCH (15:07)
[2022-05-19] MEDS: LABETALOL 100MG TAB PO SCH ×2 (15:08→20:58)
[2022-05-19] MEDS: FLUDROCORTISONE ACETATE 0.1 MG TAB PO SCH (15:09)
[2022-05-19] MEDS: HYDROCORTISONE 10 MG TAB PO SCH (15:09)
[2022-05-19] MEDS: CYANOCOBALAMIN 500 MCG TAB PO SCH (15:09)
[2022-05-19] MEDS: OLANZapine 5 MG TAB PO SCH ×2 (15:09→20:56)
[2022-05-19] MEDS: DOXYCYCLINE HYCLATE 100MG TABLET PO SCH ×2 (15:09→20:57)
[2022-05-19] MEDS: METHADONE 10MG TAB PO SCH (15:09)
[2022-05-19] MEDS: NEOSPORIN TOP OINT 15GM TOP SCH (15:10)
[2022-05-19] MEDS: THIAMINE 100 MG TAB PO SCH (15:10)
[2022-05-19] MEDS: fluvoxaMINE MALEATE 50 MG TAB PO SCH (20:56)
[2022-05-19 22:49] VITALS: BP 123/76
[2022-05-20 05:05] VITALS: BP 138/80
[2022-05-20] MEDS: **hydrALAZINE** 10 MG TAB PO SCH ×3 (05:11→21:31)
[2022-05-20] MEDS: HEPARIN SOD (PORCINE) 5000UNITS/ML 1ML VIAL/SYRINGE SQ SCH ×3 (05:17→21:31)
[2022-05-20] MEDS: PERCOCET 5MG/325MG TAB PO PRN (06:12)
[2022-05-20 07:08] LABS: CALCIUM LEVEL 8.3 MG/DL (8.5-10.1); CREATININE FOR GFR 6.8 MG/DL (0.70-1.30); GLOMERULAR FILTRATION RATE 9.5 (>60); POTASSIUM SERUM 4.5 MMOL/L (3.5-5.1)
[2022-05-20 07:09] LABS: C REACTIVE PROTEIN QUANTITATIV 6.7 MG/DL (<1.0)
[2022-05-20] MEDS: SUCROFERRIC OXYHYDROXIDE 500MG CHEW TAB (VELPHORO) PO SCH ×3 (08:00→18:19)
[2022-05-20] MEDS: HYDROCORTISONE 10 MG TAB PO SCH (09:40)
[2022-05-20] MEDS: CYANOCOBALAMIN 500 MCG TAB PO SCH (09:40)
[2022-05-20] MEDS: DOXYCYCLINE HYCLATE 100MG TABLET PO SCH ×2 (09:41→21:28)
[2022-05-20] MEDS: THIAMINE 100 MG TAB PO SCH (09:41)
[2022-05-20] MEDS: OLANZapine 5 MG TAB PO SCH ×2 (09:41→21:28)
[2022-05-20] MEDS: METHADONE 10MG TAB PO SCH (09:42)
[2022-05-20] MEDS: FLUDROCORTISONE ACETATE 0.1 MG TAB PO SCH (09:42)
[2022-05-20] MEDS: LABETALOL 100MG TAB PO SCH ×2 (09:42→21:30)
[2022-05-20] MEDS: PANTOPRAZOLE 40MG TAB (PROTONIX) PO SCH (09:42)
[2022-05-20] MEDS: NEOSPORIN TOP OINT 15GM TOP SCH (09:43)
[2022-05-20] MEDS: PATIROMER SORBITEX CALCIUM 8.4 GM POWDER PACKET (VELTASSA) PO SCH (12:43)
[2022-05-20] MEDS: fluvoxaMINE MALEATE 50 MG TAB PO SCH (21:28)
[2022-05-21 02:55] VITALS: BP 131/75
[2022-05-21] MEDS: **hydrALAZINE** 10 MG TAB PO SCH ×3 (05:16→20:49)
[2022-05-21] MEDS: HEPARIN SOD (PORCINE) 5000UNITS/ML 1ML VIAL/SYRINGE SQ SCH ×3 (05:17→20:57)
[2022-05-21] MEDS: SUCROFERRIC OXYHYDROXIDE 500MG CHEW TAB (VELPHORO) PO SCH ×3 (08:00→18:30)
[2022-05-21] MEDS ORDERED: SODIUM CHLORIDE 0.9% 1000ML IV PRN (10:40)
[2022-05-21] MEDS ORDERED: HEPARIN 1,000UNITS/ML 10ML VIAL (FOR RADIOLOGY & DIALYSIS ONLY) IV PRN (10:40)
[2022-05-21] MEDS: PATIROMER SORBITEX CALCIUM 8.4 GM POWDER PACKET (VELTASSA) PO SCH (13:16)
[2022-05-21] MEDS: PANTOPRAZOLE 40MG TAB (PROTONIX) PO SCH (14:21)
[2022-05-21] MEDS: HYDROCORTISONE 10 MG TAB PO SCH (14:21)
[2022-05-21] MEDS: CYANOCOBALAMIN 500 MCG TAB PO SCH (14:21)
[2022-05-21] MEDS: THIAMINE 100 MG TAB PO SCH (14:21)
[2022-05-21] MEDS: METHADONE 10MG TAB PO SCH (14:22)
[2022-05-21] MEDS: FLUDROCORTISONE ACETATE 0.1 MG TAB PO SCH (14:22)
[2022-05-21] MEDS: OLANZapine 5 MG TAB PO SCH ×2 (14:22→20:57)
[2022-05-21] MEDS: DOXYCYCLINE HYCLATE 100MG TABLET PO SCH ×2 (14:22→20:57)
[2022-05-21] MEDS: LABETALOL 100MG TAB PO SCH ×2 (14:23→20:57)
[2022-05-21] MEDS: PERCOCET 5MG/325MG TAB PO PRN (14:23)
[2022-05-21] MEDS: NEOSPORIN TOP OINT 15GM TOP SCH (14:24)
[2022-05-21 20:46] VITALS: BP 124/82
[2022-05-21] MEDS: fluvoxaMINE MALEATE 50 MG TAB PO SCH (20:56)
[2022-05-22] MEDS: **hydrALAZINE** 10 MG TAB PO SCH ×3 (05:38→21:21)
[2022-05-22] MEDS: HEPARIN SOD (PORCINE) 5000UNITS/ML 1ML VIAL/SYRINGE SQ SCH ×3 (05:38→21:21)
[2022-05-22 05:39] VITALS: BP 123/81
[2022-05-22 06:00] LABS: BASO # 0.1 10^3/uL (0.0-0.2); BASO % 0.9 % (0.0-1.0); EOS # 0.3 10^3/uL (0.0-0.5); EOS % 3.7 % (0.0-3.0); HEMATOCRIT 36.9 % (42.0-52.0); HEMOGLOBIN 11.6 g/dl (13.5-17.5); LYMPH # 1.4 10^3/uL (1.5-5.0); LYMPH % 18.1 % (24.0-44.0); MEAN CORPUSCULAR HEMOGLOBIN 29.4 pg (27.0-33.0); MEAN CORPUSCULAR HGB CONC 31.4 g/dl (32.0-36.5); MEAN CORPUSCULAR VOLUME 93.7 fl (80.0-96.0); MONO # 0.9 10^3/uL (0.0-0.8); MONO % 11.3 % (2.0-8.0); NEUTROPHILS # 5.1 10^3/uL (1.5-8.5); NEUTROPHILS % 65.7 % (36.0-66.0); PLATELET COUNT, AUTOMATED 186 10^3/uL (150-450); RED BLOOD COUNT 3.94 10^6/uL (4.30-6.10); WHITE BLOOD COUNT 7.8 10^3/uL (4.0-10.0)
[2022-05-22 06:39] LABS: C REACTIVE PROTEIN QUANTITATIV 5.9 MG/DL (<1.0)
[2022-05-22 06:40] LABS: CALCIUM LEVEL 8.1 MG/DL (8.5-10.1); CREATININE FOR GFR 6.27 MG/DL (0.70-1.30); GLOMERULAR FILTRATION RATE 10.5 (>60); POTASSIUM SERUM 4.9 MMOL/L (3.5-5.1)
[2022-05-22] MEDS: HYDROCORTISONE 10 MG TAB PO SCH (09:05)
[2022-05-22] MEDS: DOXYCYCLINE HYCLATE 100MG TABLET PO SCH ×2 (09:05→21:20)
[2022-05-22] MEDS: SUCROFERRIC OXYHYDROXIDE 500MG CHEW TAB (VELPHORO) PO SCH ×3 (09:05→18:34)
[2022-05-22] MEDS: THIAMINE 100 MG TAB PO SCH (09:06)
[2022-05-22] MEDS: CYANOCOBALAMIN 500 MCG TAB PO SCH (09:06)
[2022-05-22] MEDS: METHADONE 10MG TAB PO SCH (09:07)
[2022-05-22] MEDS: PANTOPRAZOLE 40MG TAB (PROTONIX) PO SCH (09:07)
[2022-05-22] MEDS: FLUDROCORTISONE ACETATE 0.1 MG TAB PO SCH (09:07)
[2022-05-22] MEDS: OLANZapine 5 MG TAB PO SCH ×2 (09:07→21:20)
[2022-05-22] MEDS: LABETALOL 100MG TAB PO SCH ×2 (09:08→21:20)
[2022-05-22] MEDS: PATIROMER SORBITEX CALCIUM 8.4 GM POWDER PACKET (VELTASSA) PO SCH (13:07)
[2022-05-22] MEDS: NEOSPORIN TOP OINT 15GM TOP SCH (13:12)
[2022-05-22] MEDS: PERCOCET 5MG/325MG TAB PO PRN (16:36)
[2022-05-22] MEDS: fluvoxaMINE MALEATE 50 MG TAB PO SCH (21:20)
[2022-05-23] MEDS ORDERED: HEPARIN 1,000UNITS/ML 10ML VIAL (FOR RADIOLOGY & DIALYSIS ONLY) IV PRN (06:00)
[2022-05-23] MEDS: HEPARIN SOD (PORCINE) 5000UNITS/ML 1ML VIAL/SYRINGE SQ SCH ×3 (06:00→20:59)
[2022-05-23] MEDS: **hydrALAZINE** 10 MG TAB PO SCH ×3 (06:00→21:02)
[2022-05-23] MEDS ORDERED: SODIUM CHLORIDE 0.9% 1000ML IV PRN (06:00)
[2022-05-23 06:02] VITALS: BP 130/76
[2022-05-23] MEDS: SUCROFERRIC OXYHYDROXIDE 500MG CHEW TAB (VELPHORO) PO SCH ×3 (08:00→17:25)
[2022-05-23] MEDS: NEOSPORIN TOP OINT 15GM TOP SCH (09:00)
[2022-05-23 12:39] VITALS: BP 131/81
[2022-05-23] MEDS: OLANZapine 5 MG TAB PO SCH ×2 (12:51→21:01)
[2022-05-23] MEDS: fluvoxaMINE MALEATE 50 MG TAB PO SCH (12:52)
[2022-05-23] MEDS: METHADONE 10MG TAB PO SCH (12:53)
[2022-05-23] MEDS: HYDROCORTISONE 10 MG TAB PO SCH (12:54)
[2022-05-23] MEDS: THIAMINE 100 MG TAB PO SCH (12:54)
[2022-05-23] MEDS: FLUDROCORTISONE ACETATE 0.1 MG TAB PO SCH (12:54)
[2022-05-23] MEDS: LABETALOL 100MG TAB PO SCH ×2 (12:55→21:03)
[2022-05-23] MEDS: DOXYCYCLINE HYCLATE 100MG TABLET PO SCH ×2 (12:55→21:01)
[2022-05-23] MEDS: CYANOCOBALAMIN 500 MCG TAB PO SCH (12:56)
[2022-05-23] MEDS: PANTOPRAZOLE 40MG TAB (PROTONIX) PO SCH (12:56)
[2022-05-23] MEDS: PATIROMER SORBITEX CALCIUM 8.4 GM POWDER PACKET (VELTASSA) PO SCH (12:57)
[2022-05-23] MEDS: PERCOCET 5MG/325MG TAB PO PRN (21:11)
[2022-05-24] MEDS: **hydrALAZINE** 10 MG TAB PO SCH ×3 (05:45→21:10)
[2022-05-24] MEDS: HEPARIN SOD (PORCINE) 5000UNITS/ML 1ML VIAL/SYRINGE SQ SCH ×3 (05:46→21:11)
[2022-05-24 06:00] VITALS: BP 137/84
[2022-05-24] MEDS ORDERED: HEPARIN 1,000UNITS/ML 10ML VIAL (FOR RADIOLOGY & DIALYSIS ONLY) IV PRN (06:00)
[2022-05-24] MEDS ORDERED: SODIUM CHLORIDE 0.9% 1000ML IV PRN (06:00)
[2022-05-24] MEDS: PERCOCET 5MG/325MG TAB PO PRN (06:53)
[2022-05-24 07:13] LABS: CALCIUM LEVEL 8.2 MG/DL (8.5-10.1); CREATININE FOR GFR 6.11 MG/DL (0.70-1.30); GLOMERULAR FILTRATION RATE 10.8 (>60); POTASSIUM SERUM 4.6 MMOL/L (3.5-5.1)
[2022-05-24] MEDS: SUCROFERRIC OXYHYDROXIDE 500MG CHEW TAB (VELPHORO) PO SCH ×4 (08:00→18:24)
[2022-05-24] MEDS: NEOSPORIN TOP OINT 15GM TOP SCH (09:00)
[2022-05-24] MEDS: PATIROMER SORBITEX CALCIUM 8.4 GM POWDER PACKET (VELTASSA) PO SCH (16:04)
[2022-05-24] MEDS: OLANZapine 5 MG TAB PO SCH ×2 (16:04→21:09)
[2022-05-24] MEDS: PANTOPRAZOLE 40MG TAB (PROTONIX) PO SCH (16:05)
[2022-05-24] MEDS: CYANOCOBALAMIN 500 MCG TAB PO SCH (16:05)
[2022-05-24] MEDS: DOXYCYCLINE HYCLATE 100MG TABLET PO SCH ×2 (16:05→21:11)
[2022-05-24] MEDS: HYDROCORTISONE 10 MG TAB PO SCH (16:05)
[2022-05-24] MEDS: LABETALOL 100MG TAB PO SCH ×2 (16:06→21:11)
[2022-05-24] MEDS: METHADONE 10MG TAB PO SCH (16:07)
[2022-05-24] MEDS: THIAMINE 100 MG TAB PO SCH (16:07)
[2022-05-24] MEDS: FLUDROCORTISONE ACETATE 0.1 MG TAB PO SCH (16:07)
[2022-05-24] MEDS: fluvoxaMINE MALEATE 50 MG TAB PO SCH (21:09)
[2022-05-25 05:34] VITALS: BP 149/88
[2022-05-25] MEDS: HEPARIN SOD (PORCINE) 5000UNITS/ML 1ML VIAL/SYRINGE SQ SCH ×3 (05:34→20:52)
[2022-05-25] MEDS: **hydrALAZINE** 10 MG TAB PO SCH ×3 (05:35→20:52)
[2022-05-25] MEDS: PERCOCET 5MG/325MG TAB PO PRN (05:54)
[2022-05-25] MEDS ORDERED: HEPARIN 1,000UNITS/ML 10ML VIAL (FOR RADIOLOGY & DIALYSIS ONLY) XX SCH (06:00)
[2022-05-25] MEDS ORDERED: SODIUM CHLORIDE 0.9% 1000ML IV PRN (06:00)
[2022-05-25] MEDS ORDERED: HEPARIN 1,000UNITS/ML 10ML VIAL (FOR RADIOLOGY & DIALYSIS ONLY) IV PRN (06:00)
[2022-05-25] MEDS: SUCROFERRIC OXYHYDROXIDE 500MG CHEW TAB (VELPHORO) PO SCH ×3 (07:36→17:33)
[2022-05-25] MEDS: NEOSPORIN TOP OINT 15GM TOP SCH (09:00)
[2022-05-25] MEDS: METHADONE 10MG TAB PO SCH (09:30)
[2022-05-25] MEDS: CYANOCOBALAMIN 500 MCG TAB PO SCH (09:30)
[2022-05-25] MEDS: OLANZapine 5 MG TAB PO SCH ×2 (09:31→20:56)
[2022-05-25] MEDS: THIAMINE 100 MG TAB PO SCH (09:31)
[2022-05-25] MEDS: HYDROCORTISONE 10 MG TAB PO SCH (09:32)
[2022-05-25] MEDS: PANTOPRAZOLE 40MG TAB (PROTONIX) PO SCH (09:32)
[2022-05-25] MEDS: DOXYCYCLINE HYCLATE 100MG TABLET PO SCH (09:32)
[2022-05-25] MEDS: FLUDROCORTISONE ACETATE 0.1 MG TAB PO SCH (09:33)
[2022-05-25] MEDS: LABETALOL 100MG TAB PO SCH ×2 (09:36→20:52)
[2022-05-25] MEDS: PATIROMER SORBITEX CALCIUM 8.4 GM POWDER PACKET (VELTASSA) PO SCH (17:34)
[2022-05-25] MEDS: AUGMENTIN 500MG TAB PO SCH (20:56)
[2022-05-25] MEDS: fluvoxaMINE MALEATE 50 MG TAB PO SCH (20:57)
[2022-05-25] MEDS ORDERED: AUGMENTIN 875 MG TAB PO SCH (21:00)
[2022-05-26] MEDS ORDERED: HEPARIN 1,000UNITS/ML 10ML VIAL (FOR RADIOLOGY & DIALYSIS ONLY) IV PRN (04:55)
[2022-05-26] MEDS ORDERED: HEPARIN 1,000UNITS/ML 10ML VIAL (FOR RADIOLOGY & DIALYSIS ONLY) XX SCH (04:55)
[2022-05-26] MEDS ORDERED: SODIUM CHLORIDE 0.9% 1000ML IV PRN (04:55)
[2022-05-26] MEDS: **hydrALAZINE** 10 MG TAB PO SCH ×3 (05:06→21:14)
[2022-05-26] MEDS: HEPARIN SOD (PORCINE) 5000UNITS/ML 1ML VIAL/SYRINGE SQ SCH ×3 (05:06→21:14)
[2022-05-26 06:00] VITALS: BP 129/80
[2022-05-26 07:17] LABS: CALCIUM LEVEL 9.1 MG/DL (8.5-10.1); CREATININE FOR GFR 7.49 MG/DL (0.70-1.30); GLOMERULAR FILTRATION RATE 8.5 (>60); POTASSIUM SERUM 4.6 MMOL/L (3.5-5.1)
[2022-05-26] MEDS: SUCROFERRIC OXYHYDROXIDE 500MG CHEW TAB (VELPHORO) PO SCH ×3 (08:00→17:38)
[2022-05-26] MEDS: PATIROMER SORBITEX CALCIUM 8.4 GM POWDER PACKET (VELTASSA) PO SCH (12:39)
[2022-05-26] MEDS: CYANOCOBALAMIN 500 MCG TAB PO SCH (12:41)
[2022-05-26] MEDS: AUGMENTIN 500MG TAB PO SCH ×2 (12:41→21:13)
[2022-05-26] MEDS: HYDROCORTISONE 10 MG TAB PO SCH (12:41)
[2022-05-26] MEDS: METHADONE 10MG TAB PO SCH (12:41)
[2022-05-26] MEDS: PANTOPRAZOLE 40MG TAB (PROTONIX) PO SCH (12:42)
[2022-05-26] MEDS: THIAMINE 100 MG TAB PO SCH (12:42)
[2022-05-26] MEDS: LABETALOL 100MG TAB PO SCH ×2 (12:43→21:14)
[2022-05-26] MEDS: FLUDROCORTISONE ACETATE 0.1 MG TAB PO SCH (12:43)
[2022-05-26] MEDS: OLANZapine 5 MG TAB PO SCH ×2 (12:48→21:13)
[2022-05-26] MEDS: NEOSPORIN TOP OINT 15GM TOP SCH (12:48)
[2022-05-26] MEDS: PERCOCET 5MG/325MG TAB PO PRN (19:09)
[2022-05-26] MEDS: fluvoxaMINE MALEATE 50 MG TAB PO SCH (21:13)
[2022-05-27] MEDS: HEPARIN SOD (PORCINE) 5000UNITS/ML 1ML VIAL/SYRINGE SQ SCH ×3 (05:37→20:47)
[2022-05-27] MEDS: **hydrALAZINE** 10 MG TAB PO SCH ×3 (05:37→20:47)
[2022-05-27 06:00] VITALS: BP 113/61
[2022-05-27] MEDS: SUCROFERRIC OXYHYDROXIDE 500MG CHEW TAB (VELPHORO) PO SCH ×3 (07:21→18:51)
[2022-05-27] MEDS: THIAMINE 100 MG TAB PO SCH (07:42)
[2022-05-27] MEDS: ACETAMINOPHEN TAB 650MG DOSE (2X325MG) PO PRN (07:43)
[2022-05-27] MEDS: AUGMENTIN 500MG TAB PO SCH ×2 (07:43→20:41)
[2022-05-27] MEDS: HYDROCORTISONE 10 MG TAB PO SCH (07:43)
[2022-05-27] MEDS: OLANZapine 5 MG TAB PO SCH ×2 (07:43→20:41)
[2022-05-27] MEDS: CYANOCOBALAMIN 500 MCG TAB PO SCH (07:44)
[2022-05-27] MEDS: PANTOPRAZOLE 40MG TAB (PROTONIX) PO SCH (07:44)
[2022-05-27] MEDS: FLUDROCORTISONE ACETATE 0.1 MG TAB PO SCH (07:44)
[2022-05-27] MEDS: METHADONE 10MG TAB PO SCH (07:44)
[2022-05-27] MEDS: NEOSPORIN TOP OINT 15GM TOP SCH (07:47)
[2022-05-27] MEDS: LABETALOL 100MG TAB PO SCH ×2 (09:00→20:47)
[2022-05-27] MEDS: PATIROMER SORBITEX CALCIUM 8.4 GM POWDER PACKET (VELTASSA) PO SCH (12:58)
[2022-05-27] MEDS: fluvoxaMINE MALEATE 50 MG TAB PO SCH (20:41)
[2022-05-27] MEDS: PERCOCET 5MG/325MG TAB PO PRN (22:18)
[2022-05-28] MEDS: HEPARIN SOD (PORCINE) 5000UNITS/ML 1ML VIAL/SYRINGE SQ SCH ×3 (04:54→20:45)
[2022-05-28] MEDS: **hydrALAZINE** 10 MG TAB PO SCH ×3 (04:54→22:00)
[2022-05-28] MEDS ORDERED: HEPARIN 1,000UNITS/ML 10ML VIAL (FOR RADIOLOGY & DIALYSIS ONLY) IV PRN (04:55)
[2022-05-28] MEDS ORDERED: HEPARIN 1,000UNITS/ML 10ML VIAL (FOR RADIOLOGY & DIALYSIS ONLY) XX SCH (04:55)
[2022-05-28] MEDS ORDERED: SODIUM CHLORIDE 0.9% 1000ML IV PRN (04:55)
[2022-05-28 06:00] VITALS: BP 121/69
[2022-05-28] MEDS: ACETAMINOPHEN TAB 650MG DOSE (2X325MG) PO PRN ×2 (06:50→13:22)
[2022-05-28 07:22] LABS: CALCIUM LEVEL 8.7 MG/DL (8.5-10.1); CREATININE FOR GFR 7.75 MG/DL (0.70-1.30); GLOMERULAR FILTRATION RATE 8.2 (>60); POTASSIUM SERUM 5.1 MMOL/L (3.5-5.1)
[2022-05-28] MEDS: SUCROFERRIC OXYHYDROXIDE 500MG CHEW TAB (VELPHORO) PO SCH ×3 (08:00→18:13)
[2022-05-28] MEDS: OLANZapine 5 MG TAB PO SCH ×2 (13:14→20:41)
[2022-05-28] MEDS: PANTOPRAZOLE 40MG TAB (PROTONIX) PO SCH (13:14)
[2022-05-28] MEDS: AUGMENTIN 500MG TAB PO SCH ×2 (13:14→20:40)
[2022-05-28] MEDS: CYANOCOBALAMIN 500 MCG TAB PO SCH (13:15)
[2022-05-28] MEDS: FLUDROCORTISONE ACETATE 0.1 MG TAB PO SCH (13:15)
[2022-05-28] MEDS: HYDROCORTISONE 10 MG TAB PO SCH (13:15)
[2022-05-28] MEDS: THIAMINE 100 MG TAB PO SCH (13:15)
[2022-05-28] MEDS: LABETALOL 100MG TAB PO SCH ×2 (13:16→20:41)
[2022-05-28] MEDS: METHADONE 10MG TAB PO SCH (13:16)
[2022-05-28] MEDS: NEOSPORIN TOP OINT 15GM TOP SCH (13:16)
[2022-05-28] MEDS: PATIROMER SORBITEX CALCIUM 8.4 GM POWDER PACKET (VELTASSA) PO SCH (13:17)
[2022-05-28] MEDS: fluvoxaMINE MALEATE 50 MG TAB PO SCH (20:40)
[2022-05-28] MEDS: PERCOCET 5MG/325MG TAB PO PRN (20:42)
[2022-05-29 05:19] VITALS: BP 125/70
[2022-05-29] MEDS: HEPARIN SOD (PORCINE) 5000UNITS/ML 1ML VIAL/SYRINGE SQ SCH ×3 (05:19→21:11)
[2022-05-29] MEDS: **hydrALAZINE** 10 MG TAB PO SCH ×3 (05:19→21:10)
[2022-05-29] MEDS: PERCOCET 5MG/325MG TAB PO PRN (06:31)
[2022-05-29] MEDS: AUGMENTIN 500MG TAB PO SCH ×2 (08:14→21:06)
[2022-05-29] MEDS: OLANZapine 5 MG TAB PO SCH ×2 (08:14→21:07)
[2022-05-29] MEDS: HYDROCORTISONE 10 MG TAB PO SCH (08:14)
[2022-05-29] MEDS: NEOSPORIN TOP OINT 15GM TOP SCH (08:14)
[2022-05-29] MEDS: PANTOPRAZOLE 40MG TAB (PROTONIX) PO SCH (08:14)
[2022-05-29] MEDS: FLUDROCORTISONE ACETATE 0.1 MG TAB PO SCH (08:14)
[2022-05-29] MEDS: THIAMINE 100 MG TAB PO SCH (08:14)
[2022-05-29] MEDS: METHADONE 10MG TAB PO SCH (08:14)
[2022-05-29] MEDS: CYANOCOBALAMIN 500 MCG TAB PO SCH (08:14)
[2022-05-29] MEDS: LABETALOL 100MG TAB PO SCH ×2 (08:15→21:10)
[2022-05-29] MEDS: SUCROFERRIC OXYHYDROXIDE 500MG CHEW TAB (VELPHORO) PO SCH ×3 (08:15→17:16)
[2022-05-29] MEDS: PATIROMER SORBITEX CALCIUM 8.4 GM POWDER PACKET (VELTASSA) PO SCH (12:28)
[2022-05-29] MEDS: fluvoxaMINE MALEATE 50 MG TAB PO SCH (21:07)
[2022-05-30] MEDS ORDERED: HEPARIN 1,000UNITS/ML 10ML VIAL (FOR RADIOLOGY & DIALYSIS ONLY) XX SCH (04:55)
[2022-05-30] MEDS ORDERED: SODIUM CHLORIDE 0.9% 1000ML IV PRN (04:55)
[2022-05-30] MEDS ORDERED: HEPARIN 1,000UNITS/ML 10ML VIAL (FOR RADIOLOGY & DIALYSIS ONLY) IV PRN (04:55)
[2022-05-30 05:17] VITALS: BP 126/72
[2022-05-30] MEDS: HEPARIN SOD (PORCINE) 5000UNITS/ML 1ML VIAL/SYRINGE SQ SCH ×4 (05:19→20:41)
[2022-05-30] MEDS: **hydrALAZINE** 10 MG TAB PO SCH ×4 (05:19→20:41)
[2022-05-30] MEDS: PERCOCET 5MG/325MG TAB PO PRN (06:06)
[2022-05-30 06:21] LABS: CALCIUM LEVEL 8.3 MG/DL (8.5-10.1); CREATININE FOR GFR 7.35 MG/DL (0.70-1.30); GLOMERULAR FILTRATION RATE 8.7 (>60); POTASSIUM SERUM 4.9 MMOL/L (3.5-5.1)
[2022-05-30] MEDS: SUCROFERRIC OXYHYDROXIDE 500MG CHEW TAB (VELPHORO) PO SCH ×3 (08:00→17:55)
[2022-05-30] MEDS: NEOSPORIN TOP OINT 15GM TOP SCH (12:57)
[2022-05-30] MEDS: OLANZapine 5 MG TAB PO SCH ×2 (12:58→20:41)
[2022-05-30] MEDS: PATIROMER SORBITEX CALCIUM 8.4 GM POWDER PACKET (VELTASSA) PO SCH (12:58)
[2022-05-30] MEDS: HYDROCORTISONE 10 MG TAB PO SCH (12:59)
[2022-05-30] MEDS: AUGMENTIN 500MG TAB PO SCH ×2 (12:59→20:40)
[2022-05-30] MEDS: CYANOCOBALAMIN 500 MCG TAB PO SCH (12:59)
[2022-05-30] MEDS: THIAMINE 100 MG TAB PO SCH (12:59)
[2022-05-30] MEDS: METHADONE 10MG TAB PO SCH (13:01)
[2022-05-30] MEDS: LABETALOL 100MG TAB PO SCH ×2 (13:02→20:41)
[2022-05-30] MEDS: FLUDROCORTISONE ACETATE 0.1 MG TAB PO SCH (13:02)
[2022-05-30] MEDS: PANTOPRAZOLE 40MG TAB (PROTONIX) PO SCH (13:03)
[2022-05-30] MEDS: fluvoxaMINE MALEATE 50 MG TAB PO SCH (20:40)
[2022-05-31 04:49] VITALS: BP 130/79
[2022-05-31] MEDS: **hydrALAZINE** 10 MG TAB PO SCH ×3 (05:31→20:19)
[2022-05-31] MEDS: HEPARIN SOD (PORCINE) 5000UNITS/ML 1ML VIAL/SYRINGE SQ SCH ×4 (05:41→20:17)
[2022-05-31] MEDS: PERCOCET 5MG/325MG TAB PO PRN (06:06)
[2022-05-31] MEDS: SUCROFERRIC OXYHYDROXIDE 500MG CHEW TAB (VELPHORO) PO SCH ×3 (09:12→18:05)
[2022-05-31] MEDS: NEOSPORIN TOP OINT 15GM TOP SCH (09:13)
[2022-05-31] MEDS: CYANOCOBALAMIN 500 MCG TAB PO SCH (09:13)
[2022-05-31] MEDS: HYDROCORTISONE 10 MG TAB PO SCH (09:13)
[2022-05-31] MEDS: AUGMENTIN 500MG TAB PO SCH ×2 (09:14→20:18)
[2022-05-31] MEDS: OLANZapine 5 MG TAB PO SCH ×2 (09:14→20:17)
[2022-05-31] MEDS: METHADONE 10MG TAB PO SCH (09:15)
[2022-05-31] MEDS: FLUDROCORTISONE ACETATE 0.1 MG TAB PO SCH (09:15)
[2022-05-31] MEDS: LABETALOL 100MG TAB PO SCH ×2 (09:15→20:17)
[2022-05-31] MEDS: THIAMINE 100 MG TAB PO SCH (09:15)
[2022-05-31] MEDS: PANTOPRAZOLE 40MG TAB (PROTONIX) PO SCH (09:16)
[2022-05-31] MEDS: PATIROMER SORBITEX CALCIUM 8.4 GM POWDER PACKET (VELTASSA) PO SCH (13:13)
[2022-05-31 19:33] VITALS: BP 122/72
[2022-05-31] MEDS: fluvoxaMINE MALEATE 50 MG TAB PO SCH (20:19)
[2022-06-01] MEDS ORDERED: HEPARIN 1,000UNITS/ML 10ML VIAL (FOR RADIOLOGY & DIALYSIS ONLY) XX SCH (01:05)
[2022-06-01] MEDS ORDERED: SODIUM CHLORIDE 0.9% 1000ML IV PRN (01:05)
[2022-06-01] MEDS ORDERED: HEPARIN 1,000UNITS/ML 10ML VIAL (FOR RADIOLOGY & DIALYSIS ONLY) IV PRN (01:05)
[2022-06-01 05:50] VITALS: BP 122/73
[2022-06-01] MEDS: PERCOCET 5MG/325MG TAB PO PRN (05:52)
[2022-06-01] MEDS: **hydrALAZINE** 10 MG TAB PO SCH ×3 (05:53→20:37)
[2022-06-01] MEDS: HEPARIN SOD (PORCINE) 5000UNITS/ML 1ML VIAL/SYRINGE SQ SCH ×3 (05:53→20:37)
[2022-06-01 06:42] LABS: HEMATOCRIT 35.4 % (42.0-52.0); HEMOGLOBIN 11.4 g/dl (13.5-17.5); MEAN CORPUSCULAR HGB CONC 32.2 g/dl (32.0-36.5); MEAN CORPUSCULAR VOLUME 90.1 fl (80.0-96.0); PLATELET COUNT, AUTOMATED 162 10^3/uL (150-450); RED BLOOD COUNT 3.93 10^6/uL (4.30-6.10); WHITE BLOOD COUNT 6.5 10^3/uL (4.0-10.0)
[2022-06-01 07:01] LABS: ALBUMIN 3.4 G/DL (3.2-5.2); CALCIUM LEVEL 8.5 MG/DL (8.5-10.1); CREATININE FOR GFR 7.12 MG/DL (0.70-1.30); GLOMERULAR FILTRATION RATE 9.1 (>60); PHOSPHORUS LEVEL 3.6 MG/DL (2.5-4.9); POTASSIUM SERUM 5.3 MMOL/L (3.5-5.1)
[2022-06-01] MEDS: SUCROFERRIC OXYHYDROXIDE 500MG CHEW TAB (VELPHORO) PO SCH ×3 (08:00→17:06)
[2022-06-01] MEDS: PANTOPRAZOLE 40MG TAB (PROTONIX) PO SCH (09:00)
[2022-06-01] MEDS: METHADONE 10MG TAB PO SCH (13:06)
[2022-06-01] MEDS: FLUDROCORTISONE ACETATE 0.1 MG TAB PO SCH (13:06)
[2022-06-01] MEDS: NEOSPORIN TOP OINT 15GM TOP SCH (13:06)
[2022-06-01] MEDS: LABETALOL 100MG TAB PO SCH ×2 (13:07→20:37)
[2022-06-01] MEDS: THIAMINE 100 MG TAB PO SCH (13:07)
[2022-06-01] MEDS: HYDROCORTISONE 10 MG TAB PO SCH (13:07)
[2022-06-01] MEDS: CYANOCOBALAMIN 500 MCG TAB PO SCH (13:07)
[2022-06-01] MEDS: OLANZapine 5 MG TAB PO SCH ×2 (13:08→20:37)
[2022-06-01] MEDS: PATIROMER SORBITEX CALCIUM 8.4 GM POWDER PACKET (VELTASSA) PO SCH (13:08)
[2022-06-01] MEDS: AUGMENTIN 500MG TAB PO SCH (13:14)
[2022-06-01] MEDS: fluvoxaMINE MALEATE 50 MG TAB PO SCH (20:37)
[2022-06-02] MEDS: **hydrALAZINE** 10 MG TAB PO SCH ×3 (05:32→22:28)
[2022-06-02] MEDS: PERCOCET 5MG/325MG TAB PO PRN (05:32)
[2022-06-02] MEDS: HEPARIN SOD (PORCINE) 5000UNITS/ML 1ML VIAL/SYRINGE SQ SCH ×3 (05:33→22:00)
[2022-06-02 06:00] VITALS: BP 136/81
[2022-06-02] MEDS ORDERED: HEPARIN 1,000UNITS/ML 10ML VIAL (FOR RADIOLOGY & DIALYSIS ONLY) IV PRN (06:00)
[2022-06-02] MEDS ORDERED: HEPARIN 1,000UNITS/ML 10ML VIAL (FOR RADIOLOGY & DIALYSIS ONLY) XX SCH (06:00)
[2022-06-02] MEDS ORDERED: SODIUM CHLORIDE 0.9% 1000ML IV PRN (06:00)
[2022-06-02] MEDS: SUCROFERRIC OXYHYDROXIDE 500MG CHEW TAB (VELPHORO) PO SCH ×3 (07:31→17:04)
[2022-06-02] MEDS: NEOSPORIN TOP OINT 15GM TOP SCH (07:31)
[2022-06-02] MEDS: THIAMINE 100 MG TAB PO SCH (07:31)
[2022-06-02] MEDS: CYANOCOBALAMIN 500 MCG TAB PO SCH (07:32)
[2022-06-02] MEDS: METHADONE 10MG TAB PO SCH (07:32)
[2022-06-02] MEDS: OLANZapine 5 MG TAB PO SCH ×2 (07:32→22:27)
[2022-06-02] MEDS: HYDROCORTISONE 10 MG TAB PO SCH (07:32)
[2022-06-02] MEDS: FLUDROCORTISONE ACETATE 0.1 MG TAB PO SCH (07:32)
[2022-06-02] MEDS: PANTOPRAZOLE 40MG TAB (PROTONIX) PO SCH (07:33)
[2022-06-02] MEDS: LABETALOL 100MG TAB PO SCH ×2 (07:33→22:28)
[2022-06-02] MEDS: PATIROMER SORBITEX CALCIUM 8.4 GM POWDER PACKET (VELTASSA) PO SCH (11:35)
[2022-06-02] MEDS: fluvoxaMINE MALEATE 50 MG TAB PO SCH (22:29)
[2022-06-03] MEDS: **hydrALAZINE** 10 MG TAB PO SCH ×4 (05:45→20:39)
[2022-06-03] MEDS: HEPARIN SOD (PORCINE) 5000UNITS/ML 1ML VIAL/SYRINGE SQ SCH ×4 (05:45→20:41)
[2022-06-03] MEDS: PERCOCET 5MG/325MG TAB PO PRN (05:46)
[2022-06-03 06:00] VITALS: BP 117/72
[2022-06-03 07:24] LABS: CALCIUM LEVEL 8.5 MG/DL (8.5-10.1); CREATININE FOR GFR 4.51 MG/DL (0.70-1.30); GLOMERULAR FILTRATION RATE 15.3 (>60); POTASSIUM SERUM 4.3 MMOL/L (3.5-5.1)
[2022-06-03] MEDS: SUCROFERRIC OXYHYDROXIDE 500MG CHEW TAB (VELPHORO) PO SCH ×3 (08:11→17:22)
[2022-06-03] MEDS: OLANZapine 5 MG TAB PO SCH ×2 (08:11→20:37)
[2022-06-03] MEDS: METHADONE 10MG TAB PO SCH (08:11)
[2022-06-03] MEDS: THIAMINE 100 MG TAB PO SCH (08:12)
[2022-06-03] MEDS: LABETALOL 100MG TAB PO SCH ×2 (08:13→20:36)
[2022-06-03] MEDS: HYDROCORTISONE 10 MG TAB PO SCH (08:13)
[2022-06-03] MEDS: CYANOCOBALAMIN 500 MCG TAB PO SCH (08:13)
[2022-06-03] MEDS: FLUDROCORTISONE ACETATE 0.1 MG TAB PO SCH (08:14)
[2022-06-03] MEDS: PANTOPRAZOLE 40MG TAB (PROTONIX) PO SCH (08:14)
[2022-06-03] MEDS: NEOSPORIN TOP OINT 15GM TOP SCH (08:14)
[2022-06-03] MEDS: PATIROMER SORBITEX CALCIUM 8.4 GM POWDER PACKET (VELTASSA) PO SCH ×3 (12:00→13:17)
[2022-06-03] MEDS: fluvoxaMINE MALEATE 50 MG TAB PO SCH (20:37)
[2022-06-04] MEDS ORDERED: HEPARIN 1,000UNITS/ML 10ML VIAL (FOR RADIOLOGY & DIALYSIS ONLY) IV PRN (06:00)
[2022-06-04] MEDS: **hydrALAZINE** 10 MG TAB PO SCH ×3 (06:00→20:08)
[2022-06-04] MEDS: HEPARIN SOD (PORCINE) 5000UNITS/ML 1ML VIAL/SYRINGE SQ SCH ×3 (06:00→20:08)
[2022-06-04] MEDS ORDERED: HEPARIN 1,000UNITS/ML 10ML VIAL (FOR RADIOLOGY & DIALYSIS ONLY) XX SCH (06:00)
[2022-06-04] MEDS ORDERED: SODIUM CHLORIDE 0.9% 1000ML IV PRN (06:00)
[2022-06-04 06:11] VITALS: BP 147/92
[2022-06-04] MEDS: PERCOCET 5MG/325MG TAB PO PRN (06:14)
[2022-06-04] MEDS: OLANZapine 5 MG TAB PO SCH ×2 (08:27→20:07)
[2022-06-04] MEDS: HYDROCORTISONE 10 MG TAB PO SCH (08:27)
[2022-06-04] MEDS: LABETALOL 100MG TAB PO SCH ×2 (08:27→20:06)
[2022-06-04] MEDS: PANTOPRAZOLE 40MG TAB (PROTONIX) PO SCH (08:27)
[2022-06-04] MEDS: METHADONE 10MG TAB PO SCH (08:28)
[2022-06-04] MEDS: SUCROFERRIC OXYHYDROXIDE 500MG CHEW TAB (VELPHORO) PO SCH ×3 (08:28→17:10)
[2022-06-04] MEDS: CYANOCOBALAMIN 500 MCG TAB PO SCH (08:28)
[2022-06-04] MEDS: THIAMINE 100 MG TAB PO SCH (08:28)
[2022-06-04] MEDS: FLUDROCORTISONE ACETATE 0.1 MG TAB PO SCH (08:28)
[2022-06-04] MEDS: NEOSPORIN TOP OINT 15GM TOP SCH (08:32)
[2022-06-04] MEDS: PATIROMER SORBITEX CALCIUM 8.4 GM POWDER PACKET (VELTASSA) PO SCH (11:45)
[2022-06-04] MEDS: fluvoxaMINE MALEATE 50 MG TAB PO SCH (20:07)
[2022-06-05] MEDS ORDERED: HEPARIN 1,000UNITS/ML 10ML VIAL (FOR RADIOLOGY & DIALYSIS ONLY) XX SCH (06:00)
[2022-06-05] MEDS: **hydrALAZINE** 10 MG TAB PO SCH ×3 (06:00→21:03)
[2022-06-05] MEDS: HEPARIN SOD (PORCINE) 5000UNITS/ML 1ML VIAL/SYRINGE SQ SCH ×3 (06:00→21:02)
[2022-06-05] MEDS ORDERED: SODIUM CHLORIDE 0.9% 1000ML IV PRN (06:00)
[2022-06-05] MEDS ORDERED: HEPARIN 1,000UNITS/ML 10ML VIAL (FOR RADIOLOGY & DIALYSIS ONLY) IV PRN (06:00)
[2022-06-05 06:20] VITALS: BP 115/73
[2022-06-05] MEDS: PERCOCET 5MG/325MG TAB PO PRN (06:23)
[2022-06-05 07:05] LABS: CALCIUM LEVEL 8.3 MG/DL (8.5-10.1); CREATININE FOR GFR 4.82 MG/DL (0.70-1.30); GLOMERULAR FILTRATION RATE 14.2 (>60); POTASSIUM SERUM 4.1 MMOL/L (3.5-5.1)
[2022-06-05] MEDS: SUCROFERRIC OXYHYDROXIDE 500MG CHEW TAB (VELPHORO) PO SCH ×3 (08:00→17:41)
[2022-06-05] MEDS: HYDROCORTISONE 10 MG TAB PO SCH (13:24)
[2022-06-05] MEDS: OLANZapine 5 MG TAB PO SCH ×2 (13:25→21:02)
[2022-06-05] MEDS: FLUDROCORTISONE ACETATE 0.1 MG TAB PO SCH (13:25)
[2022-06-05] MEDS: METHADONE 10MG TAB PO SCH (13:25)
[2022-06-05] MEDS: PANTOPRAZOLE 40MG TAB (PROTONIX) PO SCH (13:25)
[2022-06-05] MEDS: CYANOCOBALAMIN 500 MCG TAB PO SCH (13:25)
[2022-06-05] MEDS: LABETALOL 100MG TAB PO SCH ×2 (13:26→21:04)
[2022-06-05] MEDS: THIAMINE 100 MG TAB PO SCH (13:26)
[2022-06-05] MEDS: PATIROMER SORBITEX CALCIUM 8.4 GM POWDER PACKET (VELTASSA) PO SCH (13:34)
[2022-06-05] MEDS: NEOSPORIN TOP OINT 15GM TOP SCH (13:34)
[2022-06-05] MEDS: fluvoxaMINE MALEATE 50 MG TAB PO SCH (21:02)
[2022-06-06 02:18] VITALS: BP 113/72
[2022-06-06] MEDS: PERCOCET 5MG/325MG TAB PO PRN (05:36)
[2022-06-06 06:00] VITALS: BP 113/72
[2022-06-06] MEDS ORDERED: HEPARIN 1,000UNITS/ML 10ML VIAL (FOR RADIOLOGY & DIALYSIS ONLY) XX SCH (06:00)
[2022-06-06] MEDS ORDERED: HEPARIN 1,000UNITS/ML 10ML VIAL (FOR RADIOLOGY & DIALYSIS ONLY) IV PRN (06:00)
[2022-06-06] MEDS: **hydrALAZINE** 10 MG TAB PO SCH ×3 (06:00→21:49)
[2022-06-06] MEDS: HEPARIN SOD (PORCINE) 5000UNITS/ML 1ML VIAL/SYRINGE SQ SCH ×3 (06:00→21:47)
[2022-06-06] MEDS ORDERED: SODIUM CHLORIDE 0.9% 1000ML IV PRN (06:00)
[2022-06-06] MEDS: SUCROFERRIC OXYHYDROXIDE 500MG CHEW TAB (VELPHORO) PO SCH ×3 (08:00→17:40)
[2022-06-06] MEDS: LABETALOL 100MG TAB PO SCH ×2 (09:00→21:00)
[2022-06-06] MEDS: PATIROMER SORBITEX CALCIUM 8.4 GM POWDER PACKET (VELTASSA) PO SCH (13:24)
[2022-06-06] MEDS: CYANOCOBALAMIN 500 MCG TAB PO SCH (13:24)
[2022-06-06] MEDS: FLUDROCORTISONE ACETATE 0.1 MG TAB PO SCH (13:24)
[2022-06-06] MEDS: METHADONE 10MG TAB PO SCH (13:24)
[2022-06-06] MEDS: HYDROCORTISONE 10 MG TAB PO SCH (13:24)
[2022-06-06] MEDS: OLANZapine 5 MG TAB PO SCH ×2 (13:25→21:48)
[2022-06-06] MEDS: PANTOPRAZOLE 40MG TAB (PROTONIX) PO SCH (13:25)
[2022-06-06] MEDS: THIAMINE 100 MG TAB PO SCH (13:25)
[2022-06-06] MEDS: NEOSPORIN TOP OINT 15GM TOP SCH (13:26)
[2022-06-06 20:00] VITALS: BP 117/78
[2022-06-06] MEDS: fluvoxaMINE MALEATE 50 MG TAB PO SCH (21:48)
[2022-06-07] MEDS: PERCOCET 5MG/325MG TAB PO PRN (05:19)
[2022-06-07] MEDS: HEPARIN SOD (PORCINE) 5000UNITS/ML 1ML VIAL/SYRINGE SQ SCH ×3 (05:40→21:11)
[2022-06-07 06:19] VITALS: BP 118/72
[2022-06-07] MEDS: **hydrALAZINE** 10 MG TAB PO SCH ×3 (06:29→21:10)
[2022-06-07] MEDS: SUCROFERRIC OXYHYDROXIDE 500MG CHEW TAB (VELPHORO) PO SCH ×4 (08:00→17:41)
[2022-06-07] MEDS: THIAMINE 100 MG TAB PO SCH (08:56)
[2022-06-07] MEDS: PANTOPRAZOLE 40MG TAB (PROTONIX) PO SCH (08:56)
[2022-06-07] MEDS: FLUDROCORTISONE ACETATE 0.1 MG TAB PO SCH (08:57)
[2022-06-07] MEDS: METHADONE 10MG TAB PO SCH (08:57)
[2022-06-07] MEDS: OLANZapine 5 MG TAB PO SCH ×2 (08:57→21:10)
[2022-06-07] MEDS: CYANOCOBALAMIN 500 MCG TAB PO SCH (08:58)
[2022-06-07] MEDS: HYDROCORTISONE 10 MG TAB PO SCH (08:58)
[2022-06-07] MEDS: LABETALOL 100MG TAB PO SCH ×2 (09:01→21:10)
[2022-06-07] MEDS: NEOSPORIN TOP OINT 15GM TOP SCH (09:02)
[2022-06-07] MEDS: PATIROMER SORBITEX CALCIUM 8.4 GM POWDER PACKET (VELTASSA) PO SCH (14:11)
[2022-06-07] MEDS: fluvoxaMINE MALEATE 50 MG TAB PO SCH (21:10)
[2022-06-08 05:25] VITALS: BP 135/86
[2022-06-08] MEDS: PERCOCET 5MG/325MG TAB PO PRN (05:27)
[2022-06-08] MEDS: HEPARIN SOD (PORCINE) 5000UNITS/ML 1ML VIAL/SYRINGE SQ SCH ×3 (05:28→20:47)
[2022-06-08] MEDS: **hydrALAZINE** 10 MG TAB PO SCH ×3 (05:28→20:46)
[2022-06-08] MEDS ORDERED: HEPARIN 1,000UNITS/ML 10ML VIAL (FOR RADIOLOGY & DIALYSIS ONLY) XX SCH (06:00)
[2022-06-08] MEDS ORDERED: SODIUM CHLORIDE 0.9% 1000ML IV PRN (06:00)
[2022-06-08] MEDS ORDERED: HEPARIN 1,000UNITS/ML 10ML VIAL (FOR RADIOLOGY & DIALYSIS ONLY) IV PRN (06:00)
[2022-06-08] MEDS: SUCROFERRIC OXYHYDROXIDE 500MG CHEW TAB (VELPHORO) PO SCH ×3 (08:00→18:41)
[2022-06-08] MEDS: CYANOCOBALAMIN 500 MCG TAB PO SCH (13:13)
[2022-06-08] MEDS: PATIROMER SORBITEX CALCIUM 8.4 GM POWDER PACKET (VELTASSA) PO SCH (13:13)
[2022-06-08] MEDS: THIAMINE 100 MG TAB PO SCH (13:14)
[2022-06-08] MEDS: OLANZapine 5 MG TAB PO SCH ×2 (13:14→20:44)
[2022-06-08] MEDS: FLUDROCORTISONE ACETATE 0.1 MG TAB PO SCH (13:14)
[2022-06-08] MEDS: PANTOPRAZOLE 40MG TAB (PROTONIX) PO SCH (13:14)
[2022-06-08] MEDS: HYDROCORTISONE 10 MG TAB PO SCH (13:14)
[2022-06-08] MEDS: LABETALOL 100MG TAB PO SCH ×2 (13:18→20:45)
[2022-06-08] MEDS: METHADONE 10MG TAB PO SCH (13:19)
[2022-06-08] MEDS: NEOSPORIN TOP OINT 15GM TOP SCH (13:20)
[2022-06-08] MEDS: fluvoxaMINE MALEATE 50 MG TAB PO SCH (20:44)
[2022-06-09] MEDS ORDERED: HEPARIN 1,000UNITS/ML 10ML VIAL (FOR RADIOLOGY & DIALYSIS ONLY) XX SCH (00:30)
[2022-06-09] MEDS ORDERED: HEPARIN 1,000UNITS/ML 10ML VIAL (FOR RADIOLOGY & DIALYSIS ONLY) IV PRN (00:30)
[2022-06-09] MEDS: HEPARIN SOD (PORCINE) 5000UNITS/ML 1ML VIAL/SYRINGE SQ SCH ×3 (04:05→20:09)
[2022-06-09] MEDS: PERCOCET 5MG/325MG TAB PO PRN (04:05)
[2022-06-09] MEDS: **hydrALAZINE** 10 MG TAB PO SCH ×3 (06:00→20:08)
[2022-06-09 06:05] VITALS: BP 138/72
[2022-06-09] MEDS: SUCROFERRIC OXYHYDROXIDE 500MG CHEW TAB (VELPHORO) PO SCH ×3 (08:00→18:00)
[2022-06-09] MEDS: LABETALOL 100MG TAB PO SCH ×2 (09:00→20:19)
[2022-06-09] MEDS: CYANOCOBALAMIN 500 MCG TAB PO SCH (12:17)
[2022-06-09] MEDS: THIAMINE 100 MG TAB PO SCH (12:17)
[2022-06-09] MEDS: METHADONE 10MG TAB PO SCH (12:17)
[2022-06-09] MEDS: FLUDROCORTISONE ACETATE 0.1 MG TAB PO SCH (12:18)
[2022-06-09] MEDS: HYDROCORTISONE 10 MG TAB PO SCH (12:18)
[2022-06-09] MEDS: OLANZapine 5 MG TAB PO SCH ×2 (12:18→20:20)
[2022-06-09] MEDS: PANTOPRAZOLE 40MG TAB (PROTONIX) PO SCH (12:18)
[2022-06-09] MEDS: NEOSPORIN TOP OINT 15GM TOP SCH (13:57)
[2022-06-09] MEDS: PATIROMER SORBITEX CALCIUM 8.4 GM POWDER PACKET (VELTASSA) PO SCH (14:16)
[2022-06-09 19:21] LABS: HEMATOCRIT 36.1 % (42.0-52.0); MEAN CORPUSCULAR HEMOGLOBIN 29.4 pg (27.0-33.0); MEAN CORPUSCULAR HGB CONC 33.2 g/dl (32.0-36.5); MEAN CORPUSCULAR VOLUME 88.5 fl (80.0-96.0); PLATELET COUNT, AUTOMATED 170 10^3/uL (150-450); RED BLOOD COUNT 4.08 10^6/uL (4.30-6.10); WHITE BLOOD COUNT 6.8 10^3/uL (4.0-10.0)
[2022-06-09 19:53] LABS: CALCIUM LEVEL 8.4 MG/DL (8.5-10.1); CREATININE FOR GFR 6.7 MG/DL (0.70-1.30); GLOMERULAR FILTRATION RATE 9.7 (>60); POTASSIUM SERUM 4.9 MMOL/L (3.5-5.1)
[2022-06-09 20:00] VITALS: BP 119/67
[2022-06-09] MEDS: fluvoxaMINE MALEATE 50 MG TAB PO SCH (20:19)
[2022-06-10] MEDS: PERCOCET 5MG/325MG TAB PO PRN (05:28)
[2022-06-10] MEDS: **hydrALAZINE** 10 MG TAB PO SCH ×3 (05:29→21:01)
[2022-06-10] MEDS: HEPARIN SOD (PORCINE) 5000UNITS/ML 1ML VIAL/SYRINGE SQ SCH ×3 (05:29→21:01)
[2022-06-10 06:00] VITALS: BP 122/73
[2022-06-10] MEDS: SUCROFERRIC OXYHYDROXIDE 500MG CHEW TAB (VELPHORO) PO SCH ×3 (08:49→17:11)
[2022-06-10] MEDS: THIAMINE 100 MG TAB PO SCH (08:50)
[2022-06-10] MEDS: PANTOPRAZOLE 40MG TAB (PROTONIX) PO SCH (08:50)
[2022-06-10] MEDS: FLUDROCORTISONE ACETATE 0.1 MG TAB PO SCH (08:51)
[2022-06-10] MEDS: HYDROCORTISONE 10 MG TAB PO SCH (08:52)
[2022-06-10] MEDS: LABETALOL 100MG TAB PO SCH ×2 (08:52→21:01)
[2022-06-10] MEDS: METHADONE 10MG TAB PO SCH (08:52)
[2022-06-10] MEDS: CYANOCOBALAMIN 500 MCG TAB PO SCH (08:52)
[2022-06-10] MEDS: OLANZapine 5 MG TAB PO SCH ×2 (08:53→21:00)
[2022-06-10] MEDS: NEOSPORIN TOP OINT 15GM TOP SCH (08:53)
[2022-06-10] MEDS: PATIROMER SORBITEX CALCIUM 8.4 GM POWDER PACKET (VELTASSA) PO SCH (13:03)
[2022-06-10] MEDS: fluvoxaMINE MALEATE 50 MG TAB PO SCH (21:02)
[2022-06-11] MEDS ORDERED: ONDANSETRON 4MG ORAL DISINTEGRATING TAB PO ONE (02:00)
[2022-06-11] MEDS: PERCOCET 5MG/325MG TAB PO PRN (04:59)
[2022-06-11] MEDS: HEPARIN SOD (PORCINE) 5000UNITS/ML 1ML VIAL/SYRINGE SQ SCH ×4 (05:00→21:56)
[2022-06-11] MEDS: **hydrALAZINE** 10 MG TAB PO SCH ×3 (05:00→21:55)
[2022-06-11 06:17] VITALS: BP 123/73
[2022-06-11] MEDS ORDERED: HEPARIN 1,000UNITS/ML 10ML VIAL (FOR RADIOLOGY & DIALYSIS ONLY) IV PRN (08:00)
[2022-06-11] MEDS ORDERED: HEPARIN 1,000UNITS/ML 10ML VIAL (FOR RADIOLOGY & DIALYSIS ONLY) XX SCH (08:00)
[2022-06-11] MEDS: SUCROFERRIC OXYHYDROXIDE 500MG CHEW TAB (VELPHORO) PO SCH ×3 (08:00→18:00)
[2022-06-11] MEDS ORDERED: SODIUM CHLORIDE 0.9% 1000ML IV PRN (08:00)
[2022-06-11] MEDS: PATIROMER SORBITEX CALCIUM 8.4 GM POWDER PACKET (VELTASSA) PO SCH (13:10)
[2022-06-11] MEDS: OLANZapine 5 MG TAB PO SCH ×2 (13:11→20:21)
[2022-06-11] MEDS: PANTOPRAZOLE 40MG TAB (PROTONIX) PO SCH (13:11)
[2022-06-11] MEDS: METHADONE 10MG TAB PO SCH (13:11)
[2022-06-11] MEDS: FLUDROCORTISONE ACETATE 0.1 MG TAB PO SCH (13:11)
[2022-06-11] MEDS: THIAMINE 100 MG TAB PO SCH (13:11)
[2022-06-11] MEDS: CYANOCOBALAMIN 500 MCG TAB PO SCH (13:11)
[2022-06-11] MEDS: LABETALOL 100MG TAB PO SCH ×2 (13:12→20:21)
[2022-06-11] MEDS: HYDROCORTISONE 10 MG TAB PO SCH (13:12)
[2022-06-11] MEDS: NEOSPORIN TOP OINT 15GM TOP SCH (13:13)
[2022-06-11] MEDS: fluvoxaMINE MALEATE 50 MG TAB PO SCH (20:20)
[2022-06-12] MEDS: HEPARIN SOD (PORCINE) 5000UNITS/ML 1ML VIAL/SYRINGE SQ SCH ×3 (05:21→21:18)
[2022-06-12] MEDS: PERCOCET 5MG/325MG TAB PO PRN (05:21)
[2022-06-12] MEDS: **hydrALAZINE** 10 MG TAB PO SCH ×3 (05:22→21:18)
[2022-06-12 06:00] VITALS: BP 118/68
[2022-06-12] MEDS: SUCROFERRIC OXYHYDROXIDE 500MG CHEW TAB (VELPHORO) PO SCH ×3 (08:17→18:48)
[2022-06-12] MEDS: LABETALOL 100MG TAB PO SCH ×2 (08:18→21:00)
[2022-06-12] MEDS: THIAMINE 100 MG TAB PO SCH (08:18)
[2022-06-12] MEDS: PANTOPRAZOLE 40MG TAB (PROTONIX) PO SCH (08:18)
[2022-06-12] MEDS: HYDROCORTISONE 10 MG TAB PO SCH (08:18)
[2022-06-12] MEDS: FLUDROCORTISONE ACETATE 0.1 MG TAB PO SCH (08:18)
[2022-06-12] MEDS: OLANZapine 5 MG TAB PO SCH ×2 (08:18→21:18)
[2022-06-12] MEDS: CYANOCOBALAMIN 500 MCG TAB PO SCH (08:18)
[2022-06-12] MEDS: METHADONE 10MG TAB PO SCH (08:18)
[2022-06-12] MEDS: NEOSPORIN TOP OINT 15GM TOP SCH (08:19)
[2022-06-12] MEDS: PATIROMER SORBITEX CALCIUM 8.4 GM POWDER PACKET (VELTASSA) PO SCH (13:25)
[2022-06-12 17:00] LABS: ALBUMIN 3.5 G/DL (3.2-5.2); ALKALINE PHOSPHATASE 279 U/L (46-116); ALT/SGPT 21 U/L (7.0-40); AST/SGOT < 8 U/L (<34); BILIRUBIN,TOTAL 0.2 MG/DL (0.3-1.2); BLOOD UREA NITROGEN 36 MG/DL (9-23); CALCIUM LEVEL 8.7 MG/DL (8.5-10.1); CARBON DIOXIDE LEVEL 22 MMOL/L (20-31); CHLORIDE LEVEL 98 MMOL/L (98-107); CREATININE FOR GFR 7.49 MG/DL (0.70-1.30); GLOMERULAR FILTRATION RATE 8.5 (>60); GLUCOSE, FASTING 95 MG/DL (60-100); POTASSIUM SERUM 5.9 MMOL/L (3.5-5.1); SODIUM LEVEL 129 MMOL/L (136-145); TOTAL PROTEIN 6.8 G/DL (5.7-8.2)
[2022-06-12] MEDS: fluvoxaMINE MALEATE 50 MG TAB PO SCH (21:19)
[2022-06-13] MEDS: **hydrALAZINE** 10 MG TAB PO SCH ×3 (05:16→22:00)
[2022-06-13] MEDS: PERCOCET 5MG/325MG TAB PO PRN (05:30)
[2022-06-13] MEDS: HEPARIN SOD (PORCINE) 5000UNITS/ML 1ML VIAL/SYRINGE SQ SCH ×3 (05:30→22:00)
[2022-06-13] MEDS ORDERED: HEPARIN 1,000UNITS/ML 10ML VIAL (FOR RADIOLOGY & DIALYSIS ONLY) XX SCH (05:55)
[2022-06-13] MEDS ORDERED: HEPARIN 1,000UNITS/ML 10ML VIAL (FOR RADIOLOGY & DIALYSIS ONLY) IV PRN (05:55)
[2022-06-13] MEDS ORDERED: SODIUM CHLORIDE 0.9% 1000ML IV PRN (05:55)
[2022-06-13 06:00] VITALS: BP 140/81
[2022-06-13] MEDS: SUCROFERRIC OXYHYDROXIDE 500MG CHEW TAB (VELPHORO) PO SCH ×3 (09:27→18:33)
[2022-06-13] MEDS: PATIROMER SORBITEX CALCIUM 8.4 GM POWDER PACKET (VELTASSA) PO SCH (12:00)
[2022-06-13] MEDS: NEOSPORIN TOP OINT 15GM TOP SCH (12:55)
[2022-06-13] MEDS: CYANOCOBALAMIN 500 MCG TAB PO SCH (12:55)
[2022-06-13] MEDS: PANTOPRAZOLE 40MG TAB (PROTONIX) PO SCH (12:57)
[2022-06-13] MEDS: THIAMINE 100 MG TAB PO SCH (12:57)
[2022-06-13] MEDS: METHADONE 10MG TAB PO SCH (12:57)
[2022-06-13] MEDS: FLUDROCORTISONE ACETATE 0.1 MG TAB PO SCH (12:57)
[2022-06-13] MEDS: LABETALOL 100MG TAB PO SCH ×2 (12:57→20:58)
[2022-06-13] MEDS: OLANZapine 5 MG TAB PO SCH (12:58)
[2022-06-13] MEDS: HYDROCORTISONE 10 MG TAB PO SCH (13:02)
[2022-06-13 20:07] VITALS: BP 128/77
[2022-06-13] MEDS: BENZTROPINE 0.5 MG TAB PO SCH (20:55)
[2022-06-13] MEDS: fluvoxaMINE MALEATE 50 MG TAB PO SCH (20:58)
[2022-06-14] MEDS: PERCOCET 5MG/325MG TAB PO PRN (05:56)
[2022-06-14] MEDS: HEPARIN SOD (PORCINE) 5000UNITS/ML 1ML VIAL/SYRINGE SQ SCH ×3 (05:57→22:17)
[2022-06-14] MEDS: **hydrALAZINE** 10 MG TAB PO SCH ×3 (06:00→22:00)
[2022-06-14 06:20] VITALS: BP 127/77
[2022-06-14] MEDS: METHADONE 10MG TAB PO SCH (08:09)
[2022-06-14] MEDS: SUCROFERRIC OXYHYDROXIDE 500MG CHEW TAB (VELPHORO) PO SCH ×3 (08:09→17:09)
[2022-06-14] MEDS: CYANOCOBALAMIN 500 MCG TAB PO SCH (08:10)
[2022-06-14] MEDS: FLUDROCORTISONE ACETATE 0.1 MG TAB PO SCH (08:10)
[2022-06-14] MEDS: BENZTROPINE 0.5 MG TAB PO SCH ×2 (08:10→20:38)
[2022-06-14] MEDS: HYDROCORTISONE 10 MG TAB PO SCH (08:10)
[2022-06-14] MEDS: THIAMINE 100 MG TAB PO SCH (08:10)
[2022-06-14] MEDS: PANTOPRAZOLE 40MG TAB (PROTONIX) PO SCH (08:11)
[2022-06-14] MEDS: LABETALOL 100MG TAB PO SCH ×2 (08:12→20:37)
[2022-06-14] MEDS: NEOSPORIN TOP OINT 15GM TOP SCH (08:14)
[2022-06-14] MEDS: PATIROMER SORBITEX CALCIUM 8.4 GM POWDER PACKET (VELTASSA) PO SCH (11:46)
[2022-06-14] MEDS: fluvoxaMINE MALEATE 50 MG TAB PO SCH (20:39)
[2022-06-15 05:43] VITALS: BP 145/80
[2022-06-15] MEDS: HEPARIN SOD (PORCINE) 5000UNITS/ML 1ML VIAL/SYRINGE SQ SCH ×3 (06:00→21:00)
[2022-06-15] MEDS: **hydrALAZINE** 10 MG TAB PO SCH ×3 (06:00→20:59)
[2022-06-15] MEDS ORDERED: HEPARIN 1,000UNITS/ML 10ML VIAL (FOR RADIOLOGY & DIALYSIS ONLY) XX SCH (06:20)
[2022-06-15] MEDS ORDERED: HEPARIN 1,000UNITS/ML 10ML VIAL (FOR RADIOLOGY & DIALYSIS ONLY) IV PRN (06:20)
[2022-06-15] MEDS ORDERED: SODIUM CHLORIDE 0.9% 1000ML IV PRN (06:20)
[2022-06-15] MEDS: PERCOCET 5MG/325MG TAB PO PRN (06:34)
[2022-06-15] MEDS: SUCROFERRIC OXYHYDROXIDE 500MG CHEW TAB (VELPHORO) PO SCH ×3 (08:00→17:10)
[2022-06-15] MEDS: NEOSPORIN TOP OINT 15GM TOP SCH (12:40)
[2022-06-15] MEDS: FLUDROCORTISONE ACETATE 0.1 MG TAB PO SCH (12:40)
[2022-06-15] MEDS: HYDROCORTISONE 10 MG TAB PO SCH (12:40)
[2022-06-15] MEDS: METHADONE 10MG TAB PO SCH (12:41)
[2022-06-15] MEDS: THIAMINE 100 MG TAB PO SCH (12:41)
[2022-06-15] MEDS: PANTOPRAZOLE 40MG TAB (PROTONIX) PO SCH (12:41)
[2022-06-15] MEDS: BENZTROPINE 0.5 MG TAB PO SCH ×2 (12:41→21:07)
[2022-06-15] MEDS: LABETALOL 100MG TAB PO SCH ×2 (12:43→21:08)
[2022-06-15] MEDS: CYANOCOBALAMIN 500 MCG TAB PO SCH (12:44)
[2022-06-15] MEDS: PATIROMER SORBITEX CALCIUM 8.4 GM POWDER PACKET (VELTASSA) PO SCH (12:44)
[2022-06-15] MEDS: fluvoxaMINE MALEATE 50 MG TAB PO SCH (21:10)
[2022-06-16] MEDS: PERCOCET 5MG/325MG TAB PO PRN (05:02)
[2022-06-16] MEDS: **hydrALAZINE** 10 MG TAB PO SCH ×3 (05:47→20:02)
[2022-06-16] MEDS: HEPARIN SOD (PORCINE) 5000UNITS/ML 1ML VIAL/SYRINGE SQ SCH ×3 (05:48→20:02)
[2022-06-16 06:00] VITALS: BP 149/82
[2022-06-16] MEDS ORDERED: SODIUM CHLORIDE 0.9% 1000ML IV PRN (06:00)
[2022-06-16] MEDS ORDERED: HEPARIN 1,000UNITS/ML 10ML VIAL (FOR RADIOLOGY & DIALYSIS ONLY) IV PRN (06:00)
[2022-06-16] MEDS ORDERED: HEPARIN 1,000UNITS/ML 10ML VIAL (FOR RADIOLOGY & DIALYSIS ONLY) XX SCH (06:00)
[2022-06-16] MEDS: SUCROFERRIC OXYHYDROXIDE 500MG CHEW TAB (VELPHORO) PO SCH ×3 (08:00→18:11)
[2022-06-16] MEDS: PATIROMER SORBITEX CALCIUM 8.4 GM POWDER PACKET (VELTASSA) PO SCH (12:00)
[2022-06-16] MEDS: HYDROCORTISONE 10 MG TAB PO SCH (14:21)
[2022-06-16] MEDS: CYANOCOBALAMIN 500 MCG TAB PO SCH (14:21)
[2022-06-16] MEDS: PANTOPRAZOLE 40MG TAB (PROTONIX) PO SCH (14:23)
[2022-06-16] MEDS: FLUDROCORTISONE ACETATE 0.1 MG TAB PO SCH (14:23)
[2022-06-16] MEDS: THIAMINE 100 MG TAB PO SCH (14:24)
[2022-06-16] MEDS: BENZTROPINE 0.5 MG TAB PO SCH ×2 (14:24→20:01)
[2022-06-16] MEDS: LABETALOL 100MG TAB PO SCH ×2 (14:25→20:02)
[2022-06-16] MEDS: METHADONE 10MG TAB PO SCH (14:26)
[2022-06-16] MEDS: NEOSPORIN TOP OINT 15GM TOP SCH (14:27)
[2022-06-16] MEDS: fluvoxaMINE MALEATE 50 MG TAB PO SCH (20:02)
[2022-06-17] MEDS: **hydrALAZINE** 10 MG TAB PO SCH ×3 (05:31→20:41)
[2022-06-17] MEDS: HEPARIN SOD (PORCINE) 5000UNITS/ML 1ML VIAL/SYRINGE SQ SCH ×3 (05:32→20:42)
[2022-06-17] MEDS: PERCOCET 5MG/325MG TAB PO PRN (05:33)
[2022-06-17 05:52] VITALS: BP 149/91
[2022-06-17] MEDS: SUCROFERRIC OXYHYDROXIDE 500MG CHEW TAB (VELPHORO) PO SCH ×3 (08:00→17:11)
[2022-06-17] MEDS: CYANOCOBALAMIN 500 MCG TAB PO SCH (08:23)
[2022-06-17] MEDS: HYDROCORTISONE 10 MG TAB PO SCH (08:25)
[2022-06-17] MEDS: THIAMINE 100 MG TAB PO SCH (08:25)
[2022-06-17] MEDS: FLUDROCORTISONE ACETATE 0.1 MG TAB PO SCH (08:26)
[2022-06-17] MEDS: METHADONE 10MG TAB PO SCH (08:26)
[2022-06-17] MEDS: PANTOPRAZOLE 40MG TAB (PROTONIX) PO SCH (08:26)
[2022-06-17] MEDS: BENZTROPINE 0.5 MG TAB PO SCH ×2 (08:27→20:42)
[2022-06-17] MEDS: LABETALOL 100MG TAB PO SCH ×2 (08:27→20:41)
[2022-06-17] MEDS: NEOSPORIN TOP OINT 15GM TOP SCH (08:28)
[2022-06-17] MEDS: PATIROMER SORBITEX CALCIUM 8.4 GM POWDER PACKET (VELTASSA) PO SCH (12:00)
[2022-06-17 17:11] LABS: ALBUMIN 3.7 G/DL (3.2-5.2); BILIRUBIN,TOTAL 0.2 MG/DL (0.3-1.2); CREATININE FOR GFR 5.91 MG/DL (0.70-1.30); GLOMERULAR FILTRATION RATE 11.2 (>60); POTASSIUM SERUM 5.3 MMOL/L (3.5-5.1); TOTAL PROTEIN 7.3 G/DL (5.7-8.2)
[2022-06-17] MEDS: fluvoxaMINE MALEATE 50 MG TAB PO SCH (20:42)
[2022-06-18 05:22] VITALS: BP 136/82
[2022-06-18] MEDS: **hydrALAZINE** 10 MG TAB PO SCH ×3 (05:24→20:36)
[2022-06-18] MEDS: HEPARIN SOD (PORCINE) 5000UNITS/ML 1ML VIAL/SYRINGE SQ SCH ×3 (05:24→20:36)
[2022-06-18] MEDS ORDERED: SODIUM CHLORIDE 0.9% 1000ML IV PRN (06:00)
[2022-06-18] MEDS ORDERED: HEPARIN 1,000UNITS/ML 10ML VIAL (FOR RADIOLOGY & DIALYSIS ONLY) IV PRN (06:00)
[2022-06-18] MEDS ORDERED: HEPARIN 1,000UNITS/ML 10ML VIAL (FOR RADIOLOGY & DIALYSIS ONLY) XX SCH (06:00)
[2022-06-18] MEDS: PERCOCET 5MG/325MG TAB PO PRN (06:38)
[2022-06-18] MEDS: SUCROFERRIC OXYHYDROXIDE 500MG CHEW TAB (VELPHORO) PO SCH ×3 (08:00→17:50)
[2022-06-18] MEDS: FLUDROCORTISONE ACETATE 0.1 MG TAB PO SCH (12:50)
[2022-06-18] MEDS: PATIROMER SORBITEX CALCIUM 8.4 GM POWDER PACKET (VELTASSA) PO SCH (12:50)
[2022-06-18] MEDS: HYDROCORTISONE 10 MG TAB PO SCH (12:51)
[2022-06-18] MEDS: THIAMINE 100 MG TAB PO SCH (12:51)
[2022-06-18] MEDS: CYANOCOBALAMIN 500 MCG TAB PO SCH (12:51)
[2022-06-18] MEDS: LABETALOL 100MG TAB PO SCH ×2 (12:52→20:36)
[2022-06-18] MEDS: PANTOPRAZOLE 40MG TAB (PROTONIX) PO SCH (12:52)
[2022-06-18] MEDS: BENZTROPINE 0.5 MG TAB PO SCH ×2 (12:52→20:34)
[2022-06-18] MEDS: METHADONE 10MG TAB PO SCH (12:52)
[2022-06-18] MEDS: NEOSPORIN TOP OINT 15GM TOP SCH (12:53)
[2022-06-18] MEDS: fluvoxaMINE MALEATE 50 MG TAB PO SCH (20:34)
[2022-06-18 21:10] VITALS: BP 120/67
[2022-06-19 05:27] VITALS: BP 119/75
[2022-06-19] MEDS: **hydrALAZINE** 10 MG TAB PO SCH ×3 (05:28→21:26)
[2022-06-19] MEDS: HEPARIN SOD (PORCINE) 5000UNITS/ML 1ML VIAL/SYRINGE SQ SCH ×3 (05:28→21:25)
[2022-06-19] MEDS: PERCOCET 5MG/325MG TAB PO PRN (06:55)
[2022-06-19] MEDS: PANTOPRAZOLE 40MG TAB (PROTONIX) PO SCH (08:28)
[2022-06-19] MEDS: CYANOCOBALAMIN 500 MCG TAB PO SCH (08:28)
[2022-06-19] MEDS: SUCROFERRIC OXYHYDROXIDE 500MG CHEW TAB (VELPHORO) PO SCH ×3 (08:28→18:15)
[2022-06-19] MEDS: HYDROCORTISONE 10 MG TAB PO SCH (08:28)
[2022-06-19] MEDS: THIAMINE 100 MG TAB PO SCH (08:28)
[2022-06-19] MEDS: METHADONE 10MG TAB PO SCH (08:28)
[2022-06-19] MEDS: NEOSPORIN TOP OINT 15GM TOP SCH (08:29)
[2022-06-19] MEDS: FLUDROCORTISONE ACETATE 0.1 MG TAB PO SCH (08:29)
[2022-06-19] MEDS: LABETALOL 100MG TAB PO SCH ×2 (08:29→21:27)
[2022-06-19] MEDS: BENZTROPINE 0.5 MG TAB PO SCH ×2 (08:29→21:25)
[2022-06-19] MEDS: PATIROMER SORBITEX CALCIUM 8.4 GM POWDER PACKET (VELTASSA) PO SCH (13:19)
[2022-06-19] MEDS: fluvoxaMINE MALEATE 50 MG TAB PO SCH (21:23)
[2022-06-20] MEDS: HEPARIN SOD (PORCINE) 5000UNITS/ML 1ML VIAL/SYRINGE SQ SCH ×3 (06:00→20:13)
[2022-06-20] MEDS ORDERED: HEPARIN 1,000UNITS/ML 10ML VIAL (FOR RADIOLOGY & DIALYSIS ONLY) XX SCH (06:00)
[2022-06-20] MEDS: **hydrALAZINE** 10 MG TAB PO SCH ×3 (06:00→20:12)
[2022-06-20] MEDS ORDERED: HEPARIN 1,000UNITS/ML 10ML VIAL (FOR RADIOLOGY & DIALYSIS ONLY) IV PRN (06:00)
[2022-06-20 06:09] VITALS: BP 128/75
[2022-06-20] MEDS: PERCOCET 5MG/325MG TAB PO PRN (06:56)
[2022-06-20] MEDS: SUCROFERRIC OXYHYDROXIDE 500MG CHEW TAB (VELPHORO) PO SCH ×3 (08:00→18:18)
[2022-06-20] MEDS ORDERED: SODIUM CHLORIDE 0.9% 1000ML IV PRN (09:35)
[2022-06-20] MEDS: CYANOCOBALAMIN 500 MCG TAB PO SCH (12:31)
[2022-06-20] MEDS: HYDROCORTISONE 10 MG TAB PO SCH (12:31)
[2022-06-20] MEDS: BENZTROPINE 0.5 MG TAB PO SCH ×2 (12:32→20:08)
[2022-06-20] MEDS: THIAMINE 100 MG TAB PO SCH (12:32)
[2022-06-20] MEDS: METHADONE 10MG TAB PO SCH (12:33)
[2022-06-20] MEDS: FLUDROCORTISONE ACETATE 0.1 MG TAB PO SCH (12:33)
[2022-06-20] MEDS: PANTOPRAZOLE 40MG TAB (PROTONIX) PO SCH (12:33)
[2022-06-20] MEDS: LABETALOL 100MG TAB PO SCH ×2 (12:37→20:11)
[2022-06-20] MEDS: PATIROMER SORBITEX CALCIUM 8.4 GM POWDER PACKET (VELTASSA) PO SCH (12:38)
[2022-06-20] MEDS: NEOSPORIN TOP OINT 15GM TOP SCH (12:38)
[2022-06-20] MEDS: fluvoxaMINE MALEATE 50 MG TAB PO SCH (20:07)
[2022-06-20 20:41] VITALS: BP 133/70
[2022-06-21] MEDS ORDERED: SODIUM CHLORIDE 0.9% 1000ML IV PRN (06:00)
[2022-06-21] MEDS: **hydrALAZINE** 10 MG TAB PO SCH ×2 (06:00→14:12)
[2022-06-21] MEDS: HEPARIN SOD (PORCINE) 5000UNITS/ML 1ML VIAL/SYRINGE SQ SCH ×2 (06:00→14:34)
[2022-06-21] MEDS ORDERED: HEPARIN 1,000UNITS/ML 10ML VIAL (FOR RADIOLOGY & DIALYSIS ONLY) IV PRN (06:00)
[2022-06-21] MEDS ORDERED: HEPARIN 1,000UNITS/ML 10ML VIAL (FOR RADIOLOGY & DIALYSIS ONLY) XX SCH (06:00)
[2022-06-21] MEDS: PERCOCET 5MG/325MG TAB PO PRN (06:09)
[2022-06-21 06:11] VITALS: BP 111/77
[2022-06-21] MEDS: SUCROFERRIC OXYHYDROXIDE 500MG CHEW TAB (VELPHORO) PO SCH ×3 (08:00→17:27)
[2022-06-21] MEDS: NEOSPORIN TOP OINT 15GM TOP SCH (12:27)
[2022-06-21] MEDS: BENZTROPINE 0.5 MG TAB PO SCH (12:27)
[2022-06-21] MEDS: CYANOCOBALAMIN 500 MCG TAB PO SCH (12:28)
[2022-06-21] MEDS: LABETALOL 100MG TAB PO SCH (12:28)
[2022-06-21] MEDS: HYDROCORTISONE 10 MG TAB PO SCH (12:28)
[2022-06-21] MEDS: PANTOPRAZOLE 40MG TAB (PROTONIX) PO SCH (12:29)
[2022-06-21] MEDS: THIAMINE 100 MG TAB PO SCH (12:29)
[2022-06-21] MEDS: PATIROMER SORBITEX CALCIUM 8.4 GM POWDER PACKET (VELTASSA) PO SCH (12:29)
[2022-06-21] MEDS: METHADONE 10MG TAB PO SCH (12:29)
[2022-06-21] MEDS: FLUDROCORTISONE ACETATE 0.1 MG TAB PO SCH (12:29)
[2022-06-21] MEDS ORDERED: BENZ0.5T2 PO (12:31)
[2022-06-21] MEDS ORDERED: VELT1POW PO (12:31)
[2022-06-21] MEDS ORDERED: FLUV50TA PO (12:31)
[2022-06-21] MEDS ORDERED: HALO5TAB33 PO (12:31)
[2022-06-21] MEDS ORDERED: HYDR10TAB PO (12:31)
[2022-06-21 14:12] VITALS: BP 111/76
== END 2022-06-21 18:20 | disposition home or self-care (01) | DRG 252 ==
LOC: M ED 08:28 → M ED INP 13:56 → ENRESERV 14:21 → M MS5PR 18:48
PROVIDERS: ADMIT Family Medicine; ATTEND Internal Medicine
PROC: 0JH63XZ Insertion of Tunneled Vascular Access Device into Chest Subcutaneous Tissue and Fascia, Percutaneous Approach (ICD-10-PCS; 2022-03-16)
PROC: 5A1D70Z Performance of Urinary Filtration, Intermittent, Less than 6 Hours Per Day (ICD-10-PCS; 2022-03-17)
PROC: 05BF0ZZ Excision of Left Cephalic Vein, Open Approach (ICD-10-PCS; 2022-03-23)
PROC: 05SF0ZZ Reposition Left Cephalic Vein, Open Approach (ICD-10-PCS; 2022-03-23)
PROC: 05LF0ZZ Occlusion of Left Cephalic Vein, Open Approach (ICD-10-PCS; principal; 2022-05-07 07:30)
DX: T82.838A Hemorrhage due to vascular prosthetic devices, implants and grafts, initial encounter (principal); N18.6 End stage renal disease; Z94.0 Kidney transplant status; I12.0 Hypertensive chronic kidney disease with stage 5 chronic kidney disease or end stage renal disease; T82.510A Breakdown (mechanical) of surgically created arteriovenous fistula, initial encounter; F11.20 Opioid dependence, uncomplicated; L03.114 Cellulitis of left upper limb; E87.1 Hypo-osmolality and hyponatremia; E27.1 Primary adrenocortical insufficiency; D51.0 Vitamin B12 deficiency anemia due to intrinsic factor deficiency; N25.89 Other disorders resulting from impaired renal tubular function; E83.39 Other disorders of phosphorus metabolism; E87.5 Hyperkalemia; I27.20 Pulmonary hypertension, unspecified; M54.9 Dorsalgia, unspecified; D63.1 Anemia in chronic kidney disease; E87.70 Fluid overload, unspecified; G89.29 Other chronic pain; F42.4 Excoriation (skin-picking) disorder; F06.8 Other specified mental disorders due to known physiological condition; R41.89 Other symptoms and signs involving cognitive functions and awareness; F41.9 Anxiety disorder, unspecified; G62.9 Polyneuropathy, unspecified; F12.90 Cannabis use, unspecified, uncomplicated; K21.9 Gastro-esophageal reflux disease without esophagitis; T82.7XXA Infection and inflammatory reaction due to other cardiac and vascular devices, implants and grafts, initial encounter; Z79.899 Other long term (current) drug therapy; Z88.1 Allergy status to other antibiotic agents; Z88.8 Allergy status to other drugs, medicaments and biological substances; Z20.822 Contact with and (suspected) exposure to COVID-19; Z87.820 Personal history of traumatic brain injury; Z91.52 Personal history of nonsuicidal self-harm; Z87.891 Personal history of nicotine dependence; Z99.2 Dependence on renal dialysis

== ENCOUNTER 2022-09-19 04:39 | Inpatient (IN) | payer MEDICARE, MEDICAID ==
[~2022-09-19 04:39] MED LIST changes: +BENZ0.5T2 PO; +FLUV50TA PO; +HALO5TAB33 PO; +HYDR10TAB PO; +LABE100T6 PO; -LIDO1CRE42 TOP; +LIDO30CR18 TOP; +PYRI200T6 PO; -ROPI0.253 PO; +ROPI5TAB19 PO; +THIA100T7 PO; +VELT1POW PO; +VITA100T29 PO
[2022-09-19] MEDS ORDERED: MORPHINE 2 MG/ML 1ML VIAL IV ONE (05:05)
[2022-09-19 06:33] LABS: BASO % 0.3 % (0.0-1.0); EOS % 0.1 % (0.0-3.0); HEMATOCRIT 29.4 % (42.0-52.0); HEMOGLOBIN 10.2 g/dl (13.5-17.5); LYMPH # 0.8 10^3/uL (1.5-5.0); LYMPH % 9.2 % (24.0-44.0); MEAN CORPUSCULAR HGB CONC 34.7 g/dl (32.0-36.5); MEAN CORPUSCULAR VOLUME 86.5 fl (80.0-96.0); MONO # 0.9 10^3/uL (0.0-0.8); MONO % 10.3 % (2.0-8.0); NEUTROPHILS % 79.9 % (36.0-66.0); PLATELET COUNT, AUTOMATED 296 10^3/uL (150-450); WHITE BLOOD COUNT 8.7 10^3/uL (4.0-10.0)
[2022-09-19 07:02] LABS: CK-MB VALUE MASS 1.6 NG/ML (<3.6)
[2022-09-19 07:04] LABS: CPK CREATINE PHOSPHOKINASE 151 U/L (46-171); MB/CK RELATIVE INDEX 1.05 (< OR =4)
[2022-09-19 07:05] LABS: ALBUMIN 3.9 G/DL (3.2-5.2); ALKALINE PHOSPHATASE 243 U/L (46-116); ALT/SGPT < 9 U/L (7.0-40); AST/SGOT 10 U/L (<34); BILIRUBIN,TOTAL 0.4 MG/DL (0.3-1.2); BLOOD UREA NITROGEN 14 MG/DL (9-23); CALCIUM LEVEL 9.2 MG/DL (8.5-10.1); CARBON DIOXIDE LEVEL 24 MMOL/L (20-31); CHLORIDE LEVEL 87 MMOL/L (98-107); CREATININE FOR GFR 7.45 MG/DL (0.70-1.30); GLOMERULAR FILTRATION RATE 8.6 (>60); GLUCOSE, FASTING 104 MG/DL (60-100); MAGNESIUM LEVEL 1.4 MG/DL (1.8-2.4); POTASSIUM SERUM 4.2 MMOL/L (3.5-5.1); SODIUM LEVEL 124 MMOL/L (136-145)
[2022-09-19] MEDS ORDERED: LORazepam 2 MG/ML 1ML VIAL IV STA ×2 (07:07→18:12)
[2022-09-19 08:31] LABS: VENOUS BASE EXCESS 0.7 (-2.0-2.0); VENOUS HCO3 24.7 MMOL/L (23.0-27.0); VENOUS O2 SATURATION 99.1 % (60.0-80.0); VENOUS PARTIAL PRESSURE CO2 37.1 mmHg (38.0-50.0); VENOUS PARTIAL PRESSURE O2 146.1 mmHg (30.0-50.0); VENOUS PH 7.441 UNITS (7.330-7.430); VENOUS STANDARD HCO3 25.2 MMOL/L; VENOUS TOTAL CO2 25.8 MMOL/L (24.0-28.0)
[2022-09-19 08:59] LABS: OSMOLALITY SERUM 257 MOSM/KG (275-295)
[2022-09-19] MEDS: CYANOCOBALAMIN 500 MCG TAB PO SCH (09:00)
[2022-09-19] MEDS: PYRIDOXINE 50 MG TAB PO SCH (09:00)
[2022-09-19] MEDS: FLUDROCORTISONE ACETATE 0.1 MG TAB PO SCH (09:00)
[2022-09-19] MEDS: HYDROCORTISONE 5MG TABLET PO SCH (09:00)
[2022-09-19 09:02] LABS: ETHYL ALCOHOL (ETHANOL) < 0.003 % (0.000-0.010)
[2022-09-19 09:04] LABS: ACETAMINOPHEN LEVEL < 2.0 UG/ML (10.0-20.0); SALICYLATE LEVEL < 3.0 MG/DL (<30)
[2022-09-19 09:07] LABS: THYROID STIMULATING HORMONE 1.303 uIU/ML (0.55-4.78)
[2022-09-19 09:27] LABS: FREE T4 1.15 NG/DL (0.89-1.76)
[2022-09-19] MEDS ORDERED: MED REC IN PROGRESS XX SCH (10:25)
[2022-09-19] MEDS ORDERED: HEPARIN 1,000UNITS/ML 10ML VIAL (FOR RADIOLOGY & DIALYSIS ONLY) XX SCH (11:00)
[2022-09-19] MEDS ORDERED: HEPARIN 1,000UNITS/ML 10ML VIAL (FOR RADIOLOGY & DIALYSIS ONLY) IV PRN (11:00)
[2022-09-19] MEDS ORDERED: SODIUM CHLORIDE 0.9% 1000ML IV PRN (11:00)
[2022-09-19] MEDS ORDERED: VENO20IN5 IV ×2 (11:05→11:18)
[2022-09-19] MEDS ORDERED: MAG SULF 1GM/100ML (MAG RUN) 1 GM in IV 1 EA IV ONE (11:05)
[2022-09-19] MEDS ORDERED: VELT1POW3 PO ×2 (11:05→11:20)
[2022-09-19] MEDS ORDERED: VELP5CHW PO ×2 (11:05→11:16)
[2022-09-19] MEDS ORDERED: HOME MED LIST COMPLETE! XX SCH (11:45)
[2022-09-19 13:00] VITALS: BP 156/95; TEMP 98.1; O2SAT 99
[2022-09-19] MEDS: THIAMINE 100 MG TAB PO SCH (13:05)
[2022-09-19] MEDS: PANTOPRAZOLE 40MG TAB (PROTONIX) PO SCH (13:05)
[2022-09-19] MEDS: METHADONE 10MG TAB PO SCH (13:05)
[2022-09-19 14:06] LABS: HEMATOCRIT 31.3 % (42.0-52.0); HEMOGLOBIN 10.5 g/dl (13.5-17.5); MEAN CORPUSCULAR HGB CONC 33.5 g/dl (32.0-36.5); MEAN CORPUSCULAR VOLUME 86.5 fl (80.0-96.0); PLATELET COUNT, AUTOMATED 267 10^3/uL (150-450); RED BLOOD COUNT 3.62 10^6/uL (4.30-6.10); WHITE BLOOD COUNT 6.6 10^3/uL (4.0-10.0)
[2022-09-19 14:41] LABS: ALBUMIN 3.9 G/DL (3.2-5.2); CALCIUM LEVEL 9.1 MG/DL (8.5-10.1); CREATININE FOR GFR 8.01 MG/DL (0.70-1.30); GLOMERULAR FILTRATION RATE 7.9 (>60); PHOSPHORUS LEVEL 2.9 MG/DL (2.5-4.9)
[2022-09-19 17:24] LABS: PROCALCITONIN 0.43 ng/ml
[2022-09-19 17:42] LABS: C REACTIVE PROTEIN QUANTITATIV 6.1 MG/DL (<1.0)
[2022-09-19 17:50] VITALS: BP 134/94; TEMP 98.1; O2SAT 98
[2022-09-19 19:12] LABS: ALBUMIN 3.8 G/DL (3.2-5.2); CALCIUM LEVEL 8.9 MG/DL (8.5-10.1); CREATININE FOR GFR 4.4 MG/DL (0.70-1.30); GLOMERULAR FILTRATION RATE 15.8 (>60); PHOSPHORUS LEVEL 2.3 MG/DL (2.5-4.9); POTASSIUM SERUM 4.3 MMOL/L (3.5-5.1)
[2022-09-19 19:35] VITALS: BP 140/66; TEMP 98.2; O2SAT 97
[2022-09-19] MEDS: fluvoxaMINE MALEATE 50 MG TAB PO SCH (21:00)
[2022-09-19] MEDS: BENZTROPINE 0.5 MG TAB PO SCH (21:00)
[2022-09-19] MEDS: LABETALOL 100MG TAB PO SCH (21:00)
[2022-09-20 05:43] VITALS: TEMP 98.8; O2SAT 97
[2022-09-20] MEDS: FLUDROCORTISONE ACETATE 0.1 MG TAB PO SCH (05:43)
[2022-09-20] MEDS: BENZTROPINE 0.5 MG TAB PO SCH ×2 (05:43→20:27)
[2022-09-20] MEDS: PANTOPRAZOLE 40MG TAB (PROTONIX) PO SCH (05:43)
[2022-09-20] MEDS: LABETALOL 100MG TAB PO SCH ×2 (05:43→20:28)
[2022-09-20] MEDS: THIAMINE 100 MG TAB PO SCH (05:43)
[2022-09-20] MEDS: METHADONE 10MG TAB PO SCH (05:43)
[2022-09-20] MEDS: CYANOCOBALAMIN 500 MCG TAB PO SCH (05:44)
[2022-09-20] MEDS: HYDROCORTISONE 5MG TABLET PO SCH (05:44)
[2022-09-20] MEDS: PYRIDOXINE 50 MG TAB PO SCH (05:44)
[2022-09-20 05:53] LABS: BASO % 0.8 % (0.0-1.0); HEMATOCRIT 26.6 % (42.0-52.0); HEMOGLOBIN 8.7 g/dl (13.5-17.5); LYMPH # 1.1 10^3/uL (1.5-5.0); LYMPH % 21.1 % (24.0-44.0); MEAN CORPUSCULAR HEMOGLOBIN 29.3 pg (27.0-33.0); MEAN CORPUSCULAR HGB CONC 32.7 g/dl (32.0-36.5); MEAN CORPUSCULAR VOLUME 89.6 fl (80.0-96.0); MONO # 0.7 10^3/uL (0.0-0.8); MONO % 12.8 % (2.0-8.0); NEUTROPHILS # 3.3 10^3/uL (1.5-8.5); NEUTROPHILS % 65.1 % (36.0-66.0); PLATELET COUNT, AUTOMATED 235 10^3/uL (150-450); RED BLOOD COUNT 2.97 10^6/uL (4.30-6.10); WHITE BLOOD COUNT 5.1 10^3/uL (4.0-10.0)
[2022-09-20 06:21] LABS: CORTISOL AM 6.4 UG/DL (4.3-22.4)
[2022-09-20 06:24] LABS: CALCIUM LEVEL 8.5 MG/DL (8.5-10.1); CREATININE FOR GFR 5.7 MG/DL (0.70-1.30); GLOMERULAR FILTRATION RATE 11.7 (>60); POTASSIUM SERUM 4.6 MMOL/L (3.5-5.1)
[2022-09-20] MEDS ORDERED: SODIUM CHLORIDE 0.9% 1000ML IV PRN (07:45)
[2022-09-20] MEDS ORDERED: HEPARIN 1,000UNITS/ML 10ML VIAL (FOR RADIOLOGY & DIALYSIS ONLY) XX SCH (07:45)
[2022-09-20] MEDS ORDERED: HEPARIN 1,000UNITS/ML 10ML VIAL (FOR RADIOLOGY & DIALYSIS ONLY) IV PRN (07:45)
[2022-09-20 14:00] VITALS: BP 147/80; TEMP 98.1; O2SAT 92
[2022-09-20] MEDS: DIMETHICONE 2% OINTMENT(VANICREAM) 70GM TUBE TOP SCH (20:28)
[2022-09-20] MEDS: fluvoxaMINE MALEATE 50 MG TAB PO SCH (20:28)
[2022-09-20 21:10] VITALS: BP 136/74; TEMP 98.1; O2SAT 96
[2022-09-21 04:50] VITALS: TEMP 98.6; O2SAT 94
[2022-09-21 05:07] VITALS: BP 158/86
[2022-09-21 06:09] LABS: BASO # 0.1 10^3/uL (0.0-0.2); BASO % 0.8 % (0.0-1.0); EOS # 0.1 10^3/uL (0.0-0.5); HEMATOCRIT 27.6 % (42.0-52.0); HEMOGLOBIN 8.9 g/dl (13.5-17.5); LYMPH # 1.3 10^3/uL (1.5-5.0); LYMPH % 17.9 % (24.0-44.0); MEAN CORPUSCULAR HEMOGLOBIN 29.4 pg (27.0-33.0); MEAN CORPUSCULAR HGB CONC 32.2 g/dl (32.0-36.5); MEAN CORPUSCULAR VOLUME 91.1 fl (80.0-96.0); MONO # 0.7 10^3/uL (0.0-0.8); MONO % 9.2 % (2.0-8.0); NEUTROPHILS # 5.1 10^3/uL (1.5-8.5); PLATELET COUNT, AUTOMATED 245 10^3/uL (150-450); RED BLOOD COUNT 3.03 10^6/uL (4.30-6.10); WHITE BLOOD COUNT 7.2 10^3/uL (4.0-10.0)
[2022-09-21 06:48] LABS: CALCIUM LEVEL 8.3 MG/DL (8.5-10.1); CREATININE FOR GFR 7.89 MG/DL (0.70-1.30); POTASSIUM SERUM 5.2 MMOL/L (3.5-5.1)
[2022-09-21] MEDS ORDERED: HEPARIN 1,000UNITS/ML 10ML VIAL (FOR RADIOLOGY & DIALYSIS ONLY) IV PRN (07:10)
[2022-09-21] MEDS ORDERED: HEPARIN 1,000UNITS/ML 10ML VIAL (FOR RADIOLOGY & DIALYSIS ONLY) XX SCH (07:10)
[2022-09-21] MEDS ORDERED: SODIUM CHLORIDE 0.9% 1000ML IV PRN (07:10)
[2022-09-21] MEDS: METHADONE 10MG TAB PO SCH (08:06)
[2022-09-21] MEDS: DIMETHICONE 2% OINTMENT(VANICREAM) 70GM TUBE TOP SCH (08:18)
[2022-09-21] MEDS: CYANOCOBALAMIN 500 MCG TAB PO SCH (13:08)
[2022-09-21] MEDS: BENZTROPINE 0.5 MG TAB PO SCH (13:08)
[2022-09-21] MEDS: HYDROCORTISONE 5MG TABLET PO SCH (13:08)
[2022-09-21] MEDS: PANTOPRAZOLE 40MG TAB (PROTONIX) PO SCH (13:08)
[2022-09-21 13:11] VITALS: BP 168/88
[2022-09-21] MEDS: LABETALOL 100MG TAB PO SCH (13:11)
[2022-09-21] MEDS: THIAMINE 100 MG TAB PO SCH (13:12)
[2022-09-21] MEDS: PYRIDOXINE 50 MG TAB PO SCH (13:12)
[2022-09-21] MEDS: FLUDROCORTISONE ACETATE 0.1 MG TAB PO SCH (13:12)
[2022-09-21 14:00] VITALS: BP 154/87; TEMP 98.1; O2SAT 97
== END 2022-09-21 16:48 | disposition home or self-care (01) | DRG 291 ==
LOC: EDBD 04:39 → M ED 04:39 → M ED INP 10:40 → M MSPAV 12:54
PROVIDERS: ADMIT Internal Medicine Nephrology; ATTEND Internal Medicine Nephrology
PROC: 5A1D70Z Performance of Urinary Filtration, Intermittent, Less than 6 Hours Per Day (ICD-10-PCS; principal; 2022-09-20)
DX: I13.2 Hypertensive heart and chronic kidney disease with heart failure and with stage 5 chronic kidney disease, or end stage renal disease (principal); N18.6 End stage renal disease; G93.41 Metabolic encephalopathy; I50.33 Acute on chronic diastolic (congestive) heart failure; Z94.0 Kidney transplant status; E87.1 Hypo-osmolality and hyponatremia; E27.1 Primary adrenocortical insufficiency; E83.42 Hypomagnesemia; G89.29 Other chronic pain; F41.8 Other specified anxiety disorders; I27.20 Pulmonary hypertension, unspecified; R21 Rash and other nonspecific skin eruption; G62.9 Polyneuropathy, unspecified; D63.1 Anemia in chronic kidney disease; F42.9 Obsessive-compulsive disorder, unspecified; I34.0 Nonrheumatic mitral (valve) insufficiency; R01.1 Cardiac murmur, unspecified; I16.0 Hypertensive urgency; D51.0 Vitamin B12 deficiency anemia due to intrinsic factor deficiency; K21.9 Gastro-esophageal reflux disease without esophagitis; M54.9 Dorsalgia, unspecified; Z79.891 Long term (current) use of opiate analgesic; Z87.820 Personal history of traumatic brain injury; Z79.899 Other long term (current) drug therapy; Z99.2 Dependence on renal dialysis; Z87.891 Personal history of nicotine dependence; Z88.8 Allergy status to other drugs, medicaments and biological substances; Z91.52 Personal history of nonsuicidal self-harm

== ENCOUNTER 2022-10-03 08:59 | Emergency (ER) | payer MEDICARE, MEDICAID ==
[~2022-10-03] VITALS: Ht 182.9 cm; Wt 95.7 kg
[~2022-10-03 08:59] MED LIST changes: +VELT1POW3 PO
[2022-10-03 09:48] LABS: BASO # 0.1 10^3/uL (0.0-0.2); EOS # 0.1 10^3/uL (0.0-0.5); EOS % 0.9 % (0.0-3.0); HEMATOCRIT 30.5 % (42.0-52.0); HEMOGLOBIN 10.4 g/dl (13.5-17.5); LYMPH # 1.1 10^3/uL (1.5-5.0); LYMPH % 19.5 % (24.0-44.0); MEAN CORPUSCULAR HEMOGLOBIN 29.3 pg (27.0-33.0); MEAN CORPUSCULAR HGB CONC 34.1 g/dl (32.0-36.5); MEAN CORPUSCULAR VOLUME 85.9 fl (80.0-96.0); MONO # 0.5 10^3/uL (0.0-0.8); NEUTROPHILS # 4.1 10^3/uL (1.5-8.5); NEUTROPHILS % 70.6 % (36.0-66.0); PLATELET COUNT, AUTOMATED 236 10^3/uL (150-450); RED BLOOD COUNT 3.55 10^6/uL (4.30-6.10); WHITE BLOOD COUNT 5.9 10^3/uL (4.0-10.0)
[2022-10-03 10:14] LABS: CK-MB VALUE MASS < 1.0 NG/ML (<3.6)
[2022-10-03 10:17] LABS: ALBUMIN 3.7 G/DL (3.2-5.2); BILIRUBIN,DIRECT 0.2 MG/DL (<0.4); BILIRUBIN,TOTAL 0.4 MG/DL (0.3-1.2); CALCIUM LEVEL 8.7 MG/DL (8.5-10.1); CREATININE FOR GFR 4.14 MG/DL (0.70-1.30); GLOMERULAR FILTRATION RATE 16.9 (>60); POTASSIUM SERUM 3.8 MMOL/L (3.5-5.1)
[2022-10-03 10:22] LABS: CPK CREATINE PHOSPHOKINASE 68 U/L (46-171); MB/CK RELATIVE INDEX 1.47 (< OR =4)
[2022-10-03] MEDS ORDERED: ONDANSETRON 4MG 2ML VIAL IV ONE (11:00)
[2022-10-03 11:18] LABS: CK-MB VALUE MASS < 1.0 NG/ML (<3.6)
[2022-10-03 11:27] LABS: CPK CREATINE PHOSPHOKINASE 69 U/L (46-171); MB/CK RELATIVE INDEX 1.44 (< OR =4)
[2022-10-03] MEDS ORDERED: ONDA4TAB6 PO (12:07)
[2022-10-03 12:22] VITALS: BP 160/98; TEMP 98.1; O2SAT 98
== END 2022-10-03 12:25 | disposition home or self-care (01) ==
LOC: M ED 08:59 → EDBD 08:59 → M ED 12:25
DX: R53.1 Weakness (principal); I12.9 Hypertensive chronic kidney disease with stage 1 through stage 4 chronic kidney disease, or unspecified chronic kidney disease; N18.6 End stage renal disease; M54.50 Low back pain, unspecified; E55.9 Vitamin D deficiency, unspecified; Z79.899 Other long term (current) drug therapy
CPT/HCPCS: 74176; 80048; 80076; 82150; 82550; 82553; 83605; 83690; 83735; 83880; 84484; 85025; 87040; 87635; 93005; 93041; 96374; 99284; J2405

== ENCOUNTER 2022-10-08 07:22 | Emergency (ER) | payer MEDICARE, MEDICAID ==
[~2022-10-08] VITALS: Ht 182.9 cm; Wt 94.6 kg
[2022-10-08] MEDS ORDERED: METOCLOPRAMIDE INJ 10MG/2ML VIAL IV ONE (08:40)
[2022-10-08] MEDS ORDERED: LABETALOL 100MG TAB PO ONE (08:40)
[2022-10-08 08:54] LABS: BASO % 0.3 % (0.0-1.0); EOS % 0.2 % (0.0-3.0); HEMATOCRIT 31.2 % (42.0-52.0); HEMOGLOBIN 10.6 g/dl (13.5-17.5); LYMPH # 0.8 10^3/uL (1.5-5.0); LYMPH % 6.6 % (24.0-44.0); MEAN CORPUSCULAR HEMOGLOBIN 29.2 pg (27.0-33.0); MONO # 0.9 10^3/uL (0.0-0.8); MONO % 7.2 % (2.0-8.0); NEUTROPHILS # 10.3 10^3/uL (1.5-8.5); NEUTROPHILS % 85.4 % (36.0-66.0); PLATELET COUNT, AUTOMATED 266 10^3/uL (150-450); RED BLOOD COUNT 3.63 10^6/uL (4.30-6.10)
[2022-10-08 09:30] LABS: CREATININE FOR GFR 8.3 MG/DL (0.70-1.30); GLOMERULAR FILTRATION RATE 7.6 (>60); MAGNESIUM LEVEL 1.6 MG/DL (1.8-2.4); PHOSPHORUS LEVEL 3.6 MG/DL (2.5-4.9)
[2022-10-08 11:05] VITALS: BP 168/100; TEMP 98; O2SAT 98
== END 2022-10-08 11:08 | disposition home or self-care (01) ==
LOC: M ED 07:22
DX: N18.6 End stage renal disease (principal); I12.9 Hypertensive chronic kidney disease with stage 1 through stage 4 chronic kidney disease, or unspecified chronic kidney disease; E87.70 Fluid overload, unspecified; Z88.8 Allergy status to other drugs, medicaments and biological substances; Z94.0 Kidney transplant status; I50.20 Unspecified systolic (congestive) heart failure; Z87.891 Personal history of nicotine dependence; K21.9 Gastro-esophageal reflux disease without esophagitis; M54.50 Low back pain, unspecified; F42.9 Obsessive-compulsive disorder, unspecified; F41.9 Anxiety disorder, unspecified; Z79.899 Other long term (current) drug therapy
CPT/HCPCS: 71046; 80048; 83735; 84100; 85025; 87635; 93005; 93041; 94760; 96374; 99285; J2765

== ENCOUNTER → 2022-10-13 | Outpatient (CLI) | payer MEDICARE, MEDICAID | LOC: M LAB 08:12 | PROVIDERS: ATTEND Internal Medicine Nephrology | DX: E27.40 Unspecified adrenocortical insufficiency (principal) ==

== ENCOUNTER 2022-10-18 19:19 | Inpatient (IN) | payer MEDICARE, MEDICAID ==
[~2022-10-18] VITALS: Ht 182.9 cm; Wt 86.1 kg
[~2022-10-18 19:19] MED LIST changes: -FLUV100T25 PO; -VITA100093 PO
[2022-10-18 20:28] LABS: BASO # 0.1 10^3/uL (0.0-0.2); BASO % 0.7 % (0.0-1.0); EOS # 0.1 10^3/uL (0.0-0.5); EOS % 0.9 % (0.0-3.0); HEMATOCRIT 33.6 % (42.0-52.0); HEMOGLOBIN 11.1 g/dl (13.5-17.5); LYMPH # 1.1 10^3/uL (1.5-5.0); LYMPH % 14.5 % (24.0-44.0); MEAN CORPUSCULAR HEMOGLOBIN 28.7 pg (27.0-33.0); MEAN CORPUSCULAR VOLUME 86.8 fl (80.0-96.0); MONO # 0.8 10^3/uL (0.0-0.8); MONO % 10.9 % (2.0-8.0); NEUTROPHILS # 5.4 10^3/uL (1.5-8.5); NEUTROPHILS % 72.9 % (36.0-66.0); PLATELET COUNT, AUTOMATED 220 10^3/uL (150-450); RED BLOOD COUNT 3.87 10^6/uL (4.30-6.10); WHITE BLOOD COUNT 7.4 10^3/uL (4.0-10.0)
[2022-10-18 20:48] LABS: LIPASE 38 U/L (12-53)
[2022-10-18 20:54] LABS: ALKALINE PHOSPHATASE 207 U/L (46-116); ALT/SGPT < 9 U/L (7.0-40); AST/SGOT < 8 U/L (<34); BILIRUBIN,DIRECT 0.2 MG/DL (<0.4); BILIRUBIN,TOTAL 0.4 MG/DL (0.3-1.2); BLOOD UREA NITROGEN 47 MG/DL (9-23); CALCIUM LEVEL 9.3 MG/DL (8.5-10.1); CARBON DIOXIDE LEVEL 23 MMOL/L (20-31); CHLORIDE LEVEL 97 MMOL/L (98-107); CREATININE FOR GFR 10.95 MG/DL (0.70-1.30); GLOMERULAR FILTRATION RATE 5.5 (>60); GLUCOSE, FASTING 96 MG/DL (60-100); POTASSIUM SERUM 4.5 MMOL/L (3.5-5.1); SODIUM LEVEL 136 MMOL/L (136-145); TOTAL PROTEIN 7.3 G/DL (5.7-8.2)
[2022-10-18 21:03] LABS: RSV AMPLIFICATION NEGATIVE (NEGATIVE)
[2022-10-18] MEDS ORDERED: MORPHINE 4 MG/ML 1ML VIAL IV ONE (21:50)
[2022-10-18 21:58] LABS: MAGNESIUM LEVEL 1.6 MG/DL (1.8-2.4)
[2022-10-18] MEDS ORDERED: MAG SULF 1GM/100ML (MAG RUN) 1 GM in IV 1 EA IV ONE (22:15)
[2022-10-18] MEDS ORDERED: ISOVUE-370 76% 100ML VIAL As Ordered ONE (22:25)
[2022-10-19] MEDS ORDERED: HYDR-4467 PO (01:29)
[2022-10-19] MEDS ORDERED: BENZ0.5T2 PO (01:29)
[2022-10-19] MEDS ORDERED: VITA100093 PO (01:29)
[2022-10-19] MEDS ORDERED: HALO5TAB33 PO ×2 (01:29)
[2022-10-19] MEDS ORDERED: FLUV100T25 PO (01:29)
[2022-10-19] MEDS ORDERED: HOME MED LIST COMPLETE! XX SCH (01:40)
[2022-10-19] MEDS: PIPERACILLIN/TAZOBACTAM SOD 2.25 GM in D5W MINI-BAG PLUS 50 ML IV SCH ×3 (02:00→18:05)
[2022-10-19] MEDS ORDERED: HEPARIN 1,000UNITS/ML 10ML VIAL (FOR RADIOLOGY & DIALYSIS ONLY) IV PRN (05:25)
[2022-10-19] MEDS ORDERED: SODIUM CHLORIDE 0.9% 1000ML IV PRN (05:25)
[2022-10-19] MEDS ORDERED: HEPARIN 1,000UNITS/ML 10ML VIAL (FOR RADIOLOGY & DIALYSIS ONLY) XX SCH (05:25)
[2022-10-19 07:03] LABS: CALCIUM LEVEL 9.3 MG/DL (8.5-10.1); CREATININE FOR GFR 12.03 MG/DL (0.70-1.30); GLOMERULAR FILTRATION RATE 4.9 (>60); POTASSIUM SERUM 4.7 MMOL/L (3.5-5.1)
[2022-10-19] MEDS: BENZTROPINE 0.5 MG TAB PO SCH ×2 (10:15→22:01)
[2022-10-19] MEDS: THIAMINE 100 MG TAB PO SCH (10:15)
[2022-10-19] MEDS: PANTOPRAZOLE 40MG TAB (PROTONIX) PO SCH (10:15)
[2022-10-19] MEDS: ACETAMINOPHEN TAB 650MG DOSE (2X325MG) PO PRN (10:16)
[2022-10-19] MEDS: LABETALOL 100MG TAB PO SCH ×2 (10:16→22:02)
[2022-10-19] MEDS: FLUDROCORTISONE ACETATE 0.1 MG TAB PO SCH (10:16)
[2022-10-19] MEDS: HYDROCORTISONE 5MG TABLET PO SCH (10:16)
[2022-10-19] MEDS: SUCROFERRIC OXYHYDROXIDE 500MG CHEW TAB (VELPHORO) PO SCH ×3 (10:17→18:00)
[2022-10-19 17:45] VITALS: BP 162/100; TEMP 97.6; O2SAT 99
[2022-10-19] MEDS: HYDROMORPHONE HCL 0.5 MG/ 0.5 ML SYRINGE IV PRN ×2 (20:04→22:50)
[2022-10-19 20:16] VITALS: BP 155/89; TEMP 97.9; O2SAT 99
[2022-10-19] MEDS: fluvoxaMINE MALEATE 50 MG TAB PO SCH (22:02)
[2022-10-20 00:40] VITALS: BP 142/85; TEMP 98; O2SAT 99
[2022-10-20] MEDS ORDERED: SENNA 8.6 MG TAB (SENOKOT) PO ONE (00:45)
[2022-10-20] MEDS ORDERED: MIRALAX *UNIT DOSE* 17GM PACKET PO ONE (00:45)
[2022-10-20] MEDS: PIPERACILLIN/TAZOBACTAM SOD 2.25 GM in D5W MINI-BAG PLUS 50 ML IV SCH ×3 (02:35→18:24)
[2022-10-20 04:17] VITALS: BP 145/90; TEMP 98.3; O2SAT 97
[2022-10-20 06:50] LABS: HEMATOCRIT 29.9 % (42.0-52.0); HEMOGLOBIN 9.8 g/dl (13.5-17.5); MEAN CORPUSCULAR HGB CONC 32.8 g/dl (32.0-36.5); MEAN CORPUSCULAR VOLUME 88.5 fl (80.0-96.0); PLATELET COUNT, AUTOMATED 201 10^3/uL (150-450); RED BLOOD COUNT 3.38 10^6/uL (4.30-6.10); WHITE BLOOD COUNT 4.5 10^3/uL (4.0-10.0)
[2022-10-20 07:10] LABS: ALBUMIN 3.1 G/DL (3.2-5.2); CALCIUM LEVEL 8.8 MG/DL (8.5-10.1); CREATININE FOR GFR 7.39 MG/DL (0.70-1.30); GLOMERULAR FILTRATION RATE 8.7 (>60); PHOSPHORUS LEVEL 4.2 MG/DL (2.5-4.9); POTASSIUM SERUM 3.9 MMOL/L (3.5-5.1)
[2022-10-20 07:34] VITALS: BP 145/87; TEMP 97.9; O2SAT 96
[2022-10-20] MEDS: BENZTROPINE 0.5 MG TAB PO SCH ×2 (10:07→20:44)
[2022-10-20] MEDS: PANTOPRAZOLE 40MG TAB (PROTONIX) PO SCH (10:08)
[2022-10-20] MEDS: METHADONE 10MG TAB PO SCH (10:08)
[2022-10-20] MEDS: LACTULOSE 20GM/30ML SYRUP UDC PO SCH ×8 (10:08→23:13)
[2022-10-20] MEDS: LABETALOL 100MG TAB PO SCH ×2 (10:08→20:47)
[2022-10-20] MEDS: THIAMINE 100 MG TAB PO SCH (10:08)
[2022-10-20] MEDS: HYDROCORTISONE 5MG TABLET PO SCH (10:09)
[2022-10-20] MEDS: SUCROFERRIC OXYHYDROXIDE 500MG CHEW TAB (VELPHORO) PO SCH ×3 (10:23→17:40)
[2022-10-20] MEDS: FLUDROCORTISONE ACETATE 0.1 MG TAB PO SCH (13:00)
[2022-10-20 15:37] VITALS: BP 136/87; TEMP 98; O2SAT 96
[2022-10-20 20:10] VITALS: BP 167/92; TEMP 98.1; O2SAT 96
[2022-10-20] MEDS: fluvoxaMINE MALEATE 50 MG TAB PO SCH (20:44)
[2022-10-21] MEDS: PIPERACILLIN/TAZOBACTAM SOD 2.25 GM in D5W MINI-BAG PLUS 50 ML IV SCH ×3 (01:25→16:12)
[2022-10-21] MEDS: LACTULOSE 20GM/30ML SYRUP UDC PO SCH ×11 (01:25→23:00)
[2022-10-21] MEDS: HYDROMORPHONE HCL 0.5 MG/ 0.5 ML SYRINGE IV PRN ×2 (01:52→16:43)
[2022-10-21 06:00] VITALS: TEMP 97.9; O2SAT 95
[2022-10-21 06:14] VITALS: BP 160/92
[2022-10-21 06:22] LABS: HEMATOCRIT 35.5 % (42.0-52.0); HEMOGLOBIN 11.4 g/dl (13.5-17.5); MEAN CORPUSCULAR HEMOGLOBIN 28.6 pg (27.0-33.0); MEAN CORPUSCULAR HGB CONC 32.1 g/dl (32.0-36.5); PLATELET COUNT, AUTOMATED 252 10^3/uL (150-450); RED BLOOD COUNT 3.99 10^6/uL (4.30-6.10); WHITE BLOOD COUNT 6.8 10^3/uL (4.0-10.0)
[2022-10-21 06:58] LABS: ALBUMIN 3.5 G/DL (3.2-5.2); CALCIUM LEVEL 9.4 MG/DL (8.5-10.1); CREATININE FOR GFR 9.2 MG/DL (0.70-1.30); GLOMERULAR FILTRATION RATE 6.7 (>60); PHOSPHORUS LEVEL 3.4 MG/DL (2.5-4.9); POTASSIUM SERUM 3.7 MMOL/L (3.5-5.1)
[2022-10-21] MEDS: SUCROFERRIC OXYHYDROXIDE 500MG CHEW TAB (VELPHORO) PO SCH ×3 (09:18→17:45)
[2022-10-21] MEDS: HYDROCORTISONE 5MG TABLET PO SCH (09:19)
[2022-10-21] MEDS: PANTOPRAZOLE 40MG TAB (PROTONIX) PO SCH (09:19)
[2022-10-21] MEDS: FLUDROCORTISONE ACETATE 0.1 MG TAB PO SCH (09:19)
[2022-10-21] MEDS: LABETALOL 100MG TAB PO SCH ×2 (09:20→20:12)
[2022-10-21] MEDS: THIAMINE 100 MG TAB PO SCH (09:20)
[2022-10-21] MEDS: BENZTROPINE 0.5 MG TAB PO SCH ×2 (09:20→20:11)
[2022-10-21 14:00] VITALS: BP 139/89; TEMP 97.5; O2SAT 93
[2022-10-21 15:35] LABS: HEMATOCRIT 36.8 % (42.0-52.0); HEMOGLOBIN 11.9 g/dl (13.5-17.5); MEAN CORPUSCULAR HEMOGLOBIN 28.5 pg (27.0-33.0); MEAN CORPUSCULAR HGB CONC 32.3 g/dl (32.0-36.5); PLATELET COUNT, AUTOMATED 278 10^3/uL (150-450); RED BLOOD COUNT 4.18 10^6/uL (4.30-6.10)
[2022-10-21] MEDS ORDERED: PILL CUTTER 1 EACH XX PRN (16:25)
[2022-10-21 19:41] VITALS: BP 152/98; TEMP 97.7; O2SAT 97
[2022-10-21] MEDS: fluvoxaMINE MALEATE 50 MG TAB PO SCH (20:12)
[2022-10-21] MEDS: ACETAMINOPHEN TAB 650MG DOSE (2X325MG) PO PRN (20:13)
[2022-10-21 21:08] LABS: HEMATOCRIT 33.8 % (42.0-52.0); MEAN CORPUSCULAR HEMOGLOBIN 28.6 pg (27.0-33.0); MEAN CORPUSCULAR HGB CONC 32.5 g/dl (32.0-36.5); MEAN CORPUSCULAR VOLUME 87.8 fl (80.0-96.0); PLATELET COUNT, AUTOMATED 258 10^3/uL (150-450); RED BLOOD COUNT 3.85 10^6/uL (4.30-6.10); WHITE BLOOD COUNT 5.6 10^3/uL (4.0-10.0)
[2022-10-22] MEDS: PIPERACILLIN/TAZOBACTAM SOD 2.25 GM in D5W MINI-BAG PLUS 50 ML IV SCH ×3 (00:10→15:35)
[2022-10-22] MEDS: ACETAMINOPHEN TAB 650MG DOSE (2X325MG) PO PRN (01:33)
[2022-10-22] MEDS: LACTULOSE 20GM/30ML SYRUP UDC PO SCH ×12 (01:33→23:18)
[2022-10-22] MEDS ORDERED: ALPRAZolam 0.25 MG TAB PO ONE (02:05)
[2022-10-22 06:00] VITALS: BP 144/91; TEMP 97.9; O2SAT 96
[2022-10-22] MEDS ORDERED: SODIUM CHLORIDE 0.9% 1000ML IV PRN (06:00)
[2022-10-22] MEDS ORDERED: HEPARIN 1,000UNITS/ML 10ML VIAL (FOR RADIOLOGY & DIALYSIS ONLY) IV PRN (06:00)
[2022-10-22] MEDS ORDERED: HEPARIN 1,000UNITS/ML 10ML VIAL (FOR RADIOLOGY & DIALYSIS ONLY) XX SCH (06:00)
[2022-10-22] MEDS: LABETALOL 100MG TAB PO SCH ×2 (06:32→19:59)
[2022-10-22] MEDS: BENZTROPINE 0.5 MG TAB PO SCH ×2 (06:32→19:59)
[2022-10-22] MEDS: THIAMINE 100 MG TAB PO SCH (06:33)
[2022-10-22] MEDS: FLUDROCORTISONE ACETATE 0.1 MG TAB PO SCH (06:33)
[2022-10-22] MEDS: HYDROCORTISONE 5MG TABLET PO SCH (06:33)
[2022-10-22] MEDS: PANTOPRAZOLE 40MG TAB (PROTONIX) PO SCH (06:33)
[2022-10-22] MEDS: METHADONE 10MG TAB PO SCH (06:33)
[2022-10-22 06:47] LABS: HEMATOCRIT 35.1 % (42.0-52.0); HEMOGLOBIN 11.5 g/dl (13.5-17.5); MEAN CORPUSCULAR HEMOGLOBIN 28.5 pg (27.0-33.0); MEAN CORPUSCULAR HGB CONC 32.8 g/dl (32.0-36.5); MEAN CORPUSCULAR VOLUME 86.9 fl (80.0-96.0); PLATELET COUNT, AUTOMATED 254 10^3/uL (150-450); RED BLOOD COUNT 4.04 10^6/uL (4.30-6.10); WHITE BLOOD COUNT 5.5 10^3/uL (4.0-10.0)
[2022-10-22 07:35] LABS: ALBUMIN 3.7 G/DL (3.2-5.2); CALCIUM LEVEL 9.6 MG/DL (8.5-10.1); CREATININE FOR GFR 10.66 MG/DL (0.70-1.30); GLOMERULAR FILTRATION RATE 5.7 (>60); PHOSPHORUS LEVEL 4.1 MG/DL (2.5-4.9); POTASSIUM SERUM 3.5 MMOL/L (3.5-5.1)
[2022-10-22] MEDS: SUCROFERRIC OXYHYDROXIDE 500MG CHEW TAB (VELPHORO) PO SCH ×3 (08:00→18:31)
[2022-10-22 14:00] VITALS: BP 142/92; TEMP 97.7; O2SAT 99
[2022-10-22] MEDS: fluvoxaMINE MALEATE 50 MG TAB PO SCH (19:59)
[2022-10-22] MEDS ORDERED: HALOPERIDOL 5MG/ML 1ML VIAL IV ONE (20:50)
[2022-10-22] MEDS ORDERED: LORazepam 1 MG TAB PO ONE (21:30)
[2022-10-22 21:50] VITALS: BP 163/90; TEMP 98.1; O2SAT 98
[2022-10-23] MEDS: PIPERACILLIN/TAZOBACTAM SOD 2.25 GM in D5W MINI-BAG PLUS 50 ML IV SCH ×2 (00:33→08:39)
[2022-10-23] MEDS: LACTULOSE 20GM/30ML SYRUP UDC PO SCH ×3 (01:00→05:00)
[2022-10-23 05:23] VITALS: BP 190/98; TEMP 97.3; O2SAT 100
[2022-10-23 07:05] LABS: HEMATOCRIT 34.2 % (42.0-52.0); HEMOGLOBIN 11.2 g/dl (13.5-17.5); MEAN CORPUSCULAR HEMOGLOBIN 28.6 pg (27.0-33.0); MEAN CORPUSCULAR HGB CONC 32.7 g/dl (32.0-36.5); MEAN CORPUSCULAR VOLUME 87.2 fl (80.0-96.0); PLATELET COUNT, AUTOMATED 239 10^3/uL (150-450); RED BLOOD COUNT 3.92 10^6/uL (4.30-6.10); WHITE BLOOD COUNT 5.7 10^3/uL (4.0-10.0)
[2022-10-23 07:28] LABS: ALBUMIN 3.3 G/DL (3.2-5.2); CALCIUM LEVEL 8.9 MG/DL (8.5-10.1); CREATININE FOR GFR 6.5 MG/DL (0.70-1.30); GLOMERULAR FILTRATION RATE 10.1 (>60); PHOSPHORUS LEVEL 3.9 MG/DL (2.5-4.9); POTASSIUM SERUM 3.5 MMOL/L (3.5-5.1)
[2022-10-23] MEDS ORDERED: LACTULOSE 20GM/30ML SYRUP UDC PO PRN (07:30)
[2022-10-23 08:35] VITALS: BP 139/101
[2022-10-23] MEDS: SUCROFERRIC OXYHYDROXIDE 500MG CHEW TAB (VELPHORO) PO SCH ×3 (08:37→18:35)
[2022-10-23] MEDS: HYDROCORTISONE 5MG TABLET PO SCH (08:37)
[2022-10-23] MEDS: THIAMINE 100 MG TAB PO SCH (08:38)
[2022-10-23] MEDS: BENZTROPINE 0.5 MG TAB PO SCH ×2 (08:38→20:17)
[2022-10-23] MEDS: LABETALOL 100MG TAB PO SCH ×2 (08:38→20:18)
[2022-10-23] MEDS: PANTOPRAZOLE 40MG TAB (PROTONIX) PO SCH (08:38)
[2022-10-23] MEDS: FLUDROCORTISONE ACETATE 0.1 MG TAB PO SCH (08:39)
[2022-10-23] MEDS ORDERED: MOM 30ML SUSPENSION UDC PO PRN (09:20)
[2022-10-23] MEDS: SENNA 8.6 MG TAB (SENOKOT) PO SCH ×2 (11:01→20:17)
[2022-10-23] MEDS: MIRALAX *UNIT DOSE* 17GM PACKET PO SCH ×3 (11:01→20:17)
[2022-10-23 14:00] VITALS: BP 140/90; TEMP 97.9; O2SAT 100
[2022-10-23] MEDS: HEPARIN SOD (PORCINE) 5000UNITS/ML 1ML VIAL/SYRINGE SQ SCH ×2 (14:00→22:00)
[2022-10-23 18:04] LABS: BILIRUBIN,DIRECT 0.2 MG/DL (<0.4); BILIRUBIN,TOTAL 0.3 MG/DL (0.3-1.2); TOTAL PROTEIN 6.6 G/DL (5.7-8.2)
[2022-10-23 19:59] VITALS: BP 147/99; TEMP 98.1; O2SAT 99
[2022-10-23 20:09] VITALS: BP 109/68; TEMP 98.2; O2SAT 98
[2022-10-23] MEDS: fluvoxaMINE MALEATE 50 MG TAB PO SCH (20:17)
[2022-10-23] MEDS ORDERED: traZODone 100 MG TAB PO ONE (23:20)
[2022-10-24] MEDS: HEPARIN SOD (PORCINE) 5000UNITS/ML 1ML VIAL/SYRINGE SQ SCH ×3 (05:41→20:30)
[2022-10-24 05:47] VITALS: BP 142/98; TEMP 97.3; O2SAT 99
[2022-10-24] MEDS ORDERED: HEPARIN 1,000UNITS/ML 10ML VIAL (FOR RADIOLOGY & DIALYSIS ONLY) XX SCH (06:00)
[2022-10-24] MEDS ORDERED: HEPARIN 1,000UNITS/ML 10ML VIAL (FOR RADIOLOGY & DIALYSIS ONLY) IV PRN (06:00)
[2022-10-24] MEDS ORDERED: SODIUM CHLORIDE 0.9% 1000ML IV PRN (06:00)
[2022-10-24 06:09] LABS: HEMATOCRIT 34.9 % (42.0-52.0); HEMOGLOBIN 11.9 g/dl (13.5-17.5); MEAN CORPUSCULAR HGB CONC 34.1 g/dl (32.0-36.5); MEAN CORPUSCULAR VOLUME 84.9 fl (80.0-96.0); PLATELET COUNT, AUTOMATED 256 10^3/uL (150-450); RED BLOOD COUNT 4.11 10^6/uL (4.30-6.10); WHITE BLOOD COUNT 7.5 10^3/uL (4.0-10.0)
[2022-10-24 06:42] LABS: ALBUMIN 3.5 G/DL (3.2-5.2); CALCIUM LEVEL 8.8 MG/DL (8.5-10.1); CREATININE FOR GFR 7.75 MG/DL (0.70-1.30); GLOMERULAR FILTRATION RATE 8.2 (>60); PHOSPHORUS LEVEL 3.2 MG/DL (2.5-4.9); POTASSIUM SERUM 3.2 MMOL/L (3.5-5.1)
[2022-10-24] MEDS: SUCROFERRIC OXYHYDROXIDE 500MG CHEW TAB (VELPHORO) PO SCH ×3 (08:00→20:09)
[2022-10-24] MEDS: SENNA 8.6 MG TAB (SENOKOT) PO SCH ×2 (09:00→20:24)
[2022-10-24] MEDS: MIRALAX *UNIT DOSE* 17GM PACKET PO SCH ×2 (09:00→20:14)
[2022-10-24] MEDS: HYDROCORTISONE 5MG TABLET PO SCH (10:34)
[2022-10-24] MEDS: METHADONE 10MG TAB PO SCH (10:34)
[2022-10-24] MEDS: BENZTROPINE 0.5 MG TAB PO SCH ×2 (10:35→20:29)
[2022-10-24] MEDS: ACETAMINOPHEN TAB 650MG DOSE (2X325MG) PO PRN (10:35)
[2022-10-24 11:03] LABS: THYROID STIMULATING HORMONE 1.702 uIU/ML (0.55-4.78)
[2022-10-24] MEDS: LABETALOL 100MG TAB PO SCH ×2 (13:24→20:32)
[2022-10-24] MEDS: PANTOPRAZOLE 40MG TAB (PROTONIX) PO SCH (13:25)
[2022-10-24] MEDS: THIAMINE 100 MG TAB PO SCH (13:25)
[2022-10-24] MEDS: FLUDROCORTISONE ACETATE 0.1 MG TAB PO SCH (13:25)
[2022-10-24 14:30] VITALS: BP 141/88; TEMP 97.9; O2SAT 98
[2022-10-24] MEDS: fluvoxaMINE MALEATE 50 MG TAB PO SCH (20:29)
[2022-10-24 20:42] VITALS: BP 147/89; TEMP 98.2; O2SAT 98
[2022-10-25 05:57] VITALS: BP 124/84; TEMP 98.4; O2SAT 98
[2022-10-25] MEDS: HEPARIN SOD (PORCINE) 5000UNITS/ML 1ML VIAL/SYRINGE SQ SCH (06:09)
[2022-10-25 06:20] LABS: HEMATOCRIT 31.7 % (42.0-52.0); HEMOGLOBIN 10.5 g/dl (13.5-17.5); MEAN CORPUSCULAR HEMOGLOBIN 28.2 pg (27.0-33.0); MEAN CORPUSCULAR HGB CONC 33.1 g/dl (32.0-36.5); PLATELET COUNT, AUTOMATED 215 10^3/uL (150-450); RED BLOOD COUNT 3.73 10^6/uL (4.30-6.10); WHITE BLOOD COUNT 5.2 10^3/uL (4.0-10.0)
[2022-10-25 06:40] LABS: ALBUMIN 2.9 G/DL (3.2-5.2); CALCIUM LEVEL 8.7 MG/DL (8.5-10.1); CREATININE FOR GFR 5.63 MG/DL (0.70-1.30); GLOMERULAR FILTRATION RATE 11.9 (>60); PHOSPHORUS LEVEL 3.6 MG/DL (2.5-4.9); POTASSIUM SERUM 3.2 MMOL/L (3.5-5.1)
[2022-10-25] MEDS ORDERED: HYDR-3363 PO (07:24)
[2022-10-25] MEDS ORDERED: QC F0.52 PO (07:24)
[2022-10-25] MEDS ORDERED: SENN-188 PO (07:24)
[2022-10-25] MEDS ORDERED: MIRA1POW3 PO (07:24)
[2022-10-25] MEDS: SUCROFERRIC OXYHYDROXIDE 500MG CHEW TAB (VELPHORO) PO SCH (08:00)
[2022-10-25 09:00] VITALS: BP 124/84
[2022-10-25] MEDS: THIAMINE 100 MG TAB PO SCH (09:00)
[2022-10-25] MEDS: BENZTROPINE 0.5 MG TAB PO SCH (09:00)
[2022-10-25] MEDS: MIRALAX *UNIT DOSE* 17GM PACKET PO SCH (09:00)
[2022-10-25] MEDS: HYDROCORTISONE 5MG TABLET PO SCH (09:00)
[2022-10-25] MEDS: SENNA 8.6 MG TAB (SENOKOT) PO SCH (09:00)
[2022-10-25] MEDS: FLUDROCORTISONE ACETATE 0.1 MG TAB PO SCH (09:00)
[2022-10-25] MEDS: PANTOPRAZOLE 40MG TAB (PROTONIX) PO SCH (09:00)
[2022-10-25] MEDS: LABETALOL 100MG TAB PO SCH (09:00)
== END 2022-10-25 10:40 | disposition home or self-care (01) | DRG 391 ==
LOC: M ED 19:19 → M ED INP 10-19 01:51 → M PCU 10-19 17:35 → M MS5PR 10-20 19:59
PROVIDERS: ADMIT Internal Medicine; ATTEND Student in an Organized Health Care Education/Training Program
PROC: 5A1D70Z Performance of Urinary Filtration, Intermittent, Less than 6 Hours Per Day (ICD-10-PCS; principal; 2022-10-19)
DX: K52.89 Other specified noninfective gastroenteritis and colitis (principal); N18.6 End stage renal disease; E27.1 Primary adrenocortical insufficiency; F11.20 Opioid dependence, uncomplicated; I12.0 Hypertensive chronic kidney disease with stage 5 chronic kidney disease or end stage renal disease; T86.11 Kidney transplant rejection; G99.0 Autonomic neuropathy in diseases classified elsewhere; N25.81 Secondary hyperparathyroidism of renal origin; E87.1 Hypo-osmolality and hyponatremia; K21.9 Gastro-esophageal reflux disease without esophagitis; K56.41 Fecal impaction; R41.89 Other symptoms and signs involving cognitive functions and awareness; M54.50 Low back pain, unspecified; G89.29 Other chronic pain; D63.1 Anemia in chronic kidney disease; E53.8 Deficiency of other specified B group vitamins; G62.0 Drug-induced polyneuropathy; T45.1X5A Adverse effect of antineoplastic and immunosuppressive drugs, initial encounter; K31.89 Other diseases of stomach and duodenum; R11.10 Vomiting, unspecified; F12.988 Cannabis use, unspecified with other cannabis-induced disorder; Z90.5 Acquired absence of kidney; F42.9 Obsessive-compulsive disorder, unspecified; Q63.8 Other specified congenital malformations of kidney; R19.7 Diarrhea, unspecified; R59.0 Localized enlarged lymph nodes; K76.0 Fatty (change of) liver, not elsewhere classified; Z79.899 Other long term (current) drug therapy; Z88.8 Allergy status to other drugs, medicaments and biological substances; Z87.820 Personal history of traumatic brain injury; Y83.0 Surgical operation with transplant of whole organ as the cause of abnormal reaction of the patient, or of later complication, without mention of misadventure at the time of the procedure

== ENCOUNTER → 2022-10-18 | Outpatient (REF) | payer MEDICARE, MEDICAID ==
[~2022-10-18] MED LIST changes: +FLUV100T25 PO; +VITA100093 PO
== END ==
LOC: M SFHCADAM 11:24
PROVIDERS: ATTEND Family Medicine
DX: A09 Infectious gastroenteritis and colitis, unspecified (principal)

== ENCOUNTER → 2022-11-28 | Outpatient (REF) | payer MEDICARE, MEDICAID ==
[~2022-11-28] MED LIST changes: +FLUV100T25 PO; +MIRA1POW3 PO; +QC F0.52 PO; +SENN-188 PO; +VITA100093 PO
[2022-11-28 13:46] LABS: CHOLESTEROL RISK RATIO 2.88 (<5); HDL CHOLESTEROL 61.1 MG/DL (>40); LDL CHOLESTEROL 102.7 MG/DL (<100); NON-HDL-C 114.9 MG/DL
[2022-11-28 13:47] LABS: FREE T4 1.12 NG/DL (0.89-1.76); THYROID STIMULATING HORMONE 3.48 uIU/ML (0.55-4.78)
== END ==
LOC: M SFHCADAM 11:16
PROVIDERS: ATTEND Family Medicine
DX: F06.4 Anxiety disorder due to known physiological condition (principal); G99.0 Autonomic neuropathy in diseases classified elsewhere; Z99.2 Dependence on renal dialysis; Z79.899 Other long term (current) drug therapy

== ENCOUNTER 2023-02-15 13:33 | Inpatient (IN) | payer MEDICARE, MEDICAID ==
[~2023-02-15] VITALS: Ht 182.9 cm; Wt 77.0 kg
[2023-02-15] MEDS ORDERED: LORazepam 2 MG/ML 1ML VIAL IV STA ×3 (14:19→19:21)
[2023-02-15] MEDS ORDERED: LORazepam 2 MG/ML 1ML VIAL IM STA (14:39)
[2023-02-15 15:14] LABS: VENOUS BASE EXCESS -8.9 (-2.0-2.0); VENOUS HCO3 17.7 MMOL/L (23.0-27.0); VENOUS O2 SATURATION 46.8 % (60.0-80.0); VENOUS PARTIAL PRESSURE CO2 40.7 mmHg (38.0-50.0); VENOUS PARTIAL PRESSURE O2 30.7 mmHg (30.0-50.0); VENOUS PH 7.256 UNITS (7.330-7.430); VENOUS STANDARD HCO3 16.3 MMOL/L; VENOUS TOTAL CO2 18.9 MMOL/L (24.0-28.0)
[2023-02-15] MEDS ORDERED: ACETAMINOPHEN 500 MG TAB PO ONE (15:15)
[2023-02-15 15:19] LABS: BASO # 0.1 10^3/uL (0.0-0.2); BASO % 0.6 % (0.0-1.0); EOS # 0.1 10^3/uL (0.0-0.5); EOS % 0.5 % (0.0-3.0); HEMATOCRIT 44.2 % (42.0-52.0); HEMOGLOBIN 15.1 g/dl (13.5-17.5); LYMPH # 1.7 10^3/uL (1.5-5.0); LYMPH % 12.8 % (24.0-44.0); MEAN CORPUSCULAR HEMOGLOBIN 30.5 pg (27.0-33.0); MEAN CORPUSCULAR HGB CONC 34.2 g/dl (32.0-36.5); MEAN CORPUSCULAR VOLUME 89.3 fl (80.0-96.0); MONO # 0.9 10^3/uL (0.0-0.8); MONO % 6.5 % (2.0-8.0); NEUTROPHILS # 10.4 10^3/uL (1.5-8.5); NEUTROPHILS % 79.2 % (36.0-66.0); PLATELET COUNT, AUTOMATED 328 10^3/uL (150-450); RED BLOOD COUNT 4.95 10^6/uL (4.30-6.10); WHITE BLOOD COUNT 13.1 10^3/uL (4.0-10.0)
[2023-02-15 15:48] LABS: ETHYL ALCOHOL (ETHANOL) < 0.003 % (0.000-0.010)
[2023-02-15 15:50] LABS: SALICYLATE LEVEL < 3.0 MG/DL (<30)
[2023-02-15] MEDS ORDERED: cefTRIAXone SOD 2 GM in D5W MINI-BAG PLUS 50 ML IV ONE (15:50)
[2023-02-15 16:10] LABS: ALKALINE PHOSPHATASE 184 U/L (46-116); ALT/SGPT 30 U/L (7.0-40); AST/SGOT 16 U/L (<34); BILIRUBIN,DIRECT 0.2 MG/DL (<0.4); BILIRUBIN,TOTAL 0.4 MG/DL (0.3-1.2); BLOOD UREA NITROGEN 100 MG/DL (9-23); CALCIUM LEVEL 10.8 MG/DL (8.5-10.1); CARBON DIOXIDE LEVEL 18 MMOL/L (20-31); CHLORIDE LEVEL 97 MMOL/L (98-107); CREATININE FOR GFR 13.03 MG/DL (0.70-1.30); GLOMERULAR FILTRATION RATE 4.5 (>60); GLUCOSE, FASTING 87 MG/DL (60-100); POTASSIUM SERUM 6.9 MMOL/L (3.5-5.1); SODIUM LEVEL 140 MMOL/L (136-145); THYROID STIMULATING HORMONE 1.996 uIU/ML (0.55-4.78); TOTAL PROTEIN 9.1 G/DL (5.7-8.2)
[2023-02-15] MEDS ORDERED: CALCIUM CHLORIDE 10% 1 GM/10 ML SYR IV ONE (16:10)
[2023-02-15] MEDS ORDERED: HumuLIN R (REGULAR) INSULIN (NovoLIN R) **100U/ML** PER UNIT IV ONE (16:10)
[2023-02-15] MEDS ORDERED: DEXTROSE 50% 50ML SYRINGE IV ONE (16:10)
[2023-02-15] MEDS ORDERED: SODIUM BICARBONATE 8.4% INJ 50ML SYRINGE IV ONE (16:10)
[2023-02-15] MEDS ORDERED: PATIROMER SORBITEX CALCIUM 8.4 GM POWDER PACKET (VELTASSA) PO ONE (16:10)
[2023-02-15 16:12] LABS: OSMOLALITY SERUM 336 MOSM/KG (275-295)
[2023-02-15] MEDS ORDERED: NS 500 ML IV ONE (17:25)
[2023-02-15] MEDS ORDERED: VANCOMYCIN HCL 1,500 MG in NS 250 ML IV ONE (17:25)
[2023-02-15] MEDS ORDERED: MED REC IN PROGRESS XX SCH (17:45)
[2023-02-15] MEDS ORDERED: MOM 30ML SUSPENSION UDC PO PRN (17:45)
[2023-02-15] MEDS ORDERED: ACETAMINOPHEN TAB 650MG DOSE (2X325MG) PO PRN (17:45)
[2023-02-15] MEDS ORDERED: QUET100T2 PO (17:47)
[2023-02-15] MEDS ORDERED: HOME MED LIST COMPLETE! XX SCH (17:50)
[2023-02-15] MEDS ORDERED: VANCOMYCIN HCL 1,000 MG, VIAL MATE ADAPTER 1 EACH in NS 250 ML IV SCH (18:15)
[2023-02-15] MEDS ORDERED: HEPARIN 1,000UNITS/ML 10ML VIAL (FOR RADIOLOGY & DIALYSIS ONLY) XX SCH (18:50)
[2023-02-15] MEDS ORDERED: SODIUM CHLORIDE 0.9% 1000ML IV PRN (18:50)
[2023-02-15] MEDS ORDERED: HEPARIN 1,000UNITS/ML 10ML VIAL (FOR RADIOLOGY & DIALYSIS ONLY) IV PRN (18:50)
[2023-02-15] MEDS ORDERED: VANCOMYCIN HCL 750 MG, VIAL MATE ADAPTER 1 EACH in D5W 250 ML IV ONE ×3 (19:00→23:00)
[2023-02-15 19:33] LABS: MAGNESIUM LEVEL 2.3 MG/DL (1.8-2.4); PHOSPHORUS LEVEL 8.7 MG/DL (2.5-4.9)
[2023-02-15 20:01] LABS: CALCIUM LEVEL 10.1 MG/DL (8.5-10.1); CREATININE FOR GFR 13.02 MG/DL (0.70-1.30); GLOMERULAR FILTRATION RATE 4.5 (>60); POTASSIUM SERUM 5.1 MMOL/L (3.5-5.1)
[2023-02-15] MEDS ORDERED: DEXTROSE 50% 50ML SYRINGE IV STA ×2 (20:38→21:15)
[2023-02-15] MEDS ORDERED: DEXTROSE 50% 50ML SYRINGE IV PRN (20:40)
[2023-02-15] MEDS ORDERED: GLUCAGON INJ 1MG VIAL SC PRN (20:40)
[2023-02-15] MEDS ORDERED: GLUCOSE 4GM CHEW TABLET PO PRN (20:40)
[2023-02-15] MEDS ORDERED: QUEtiapine FUMARATE 100 MG TAB PO SCH (21:00)
[2023-02-15] MEDS ORDERED: LABETALOL 100MG TAB PO SCH (21:00)
[2023-02-15] MEDS ORDERED: D10W/0.45% SODIUM CHLORIDE 1,000 ML IV SCH (21:20)
[2023-02-15] MEDS ORDERED: levETIRAcetam INJection 1,000 MG in D5W 100 ML IV ONE (21:30)
[2023-02-15] MEDS ORDERED: HEPARIN SOD (PORCINE) 5000UNITS/ML 1ML VIAL/SYRINGE SC SCH (22:00)
[2023-02-15 22:20] VITALS: BP 136/86; TEMP 100.8; O2SAT 99
[2023-02-16] VITALS: BP 135/84; TEMP 98.3; O2SAT 97
[2023-02-16] MEDS ORDERED: ACETAMINOPHEN *IV* 1,000 MG in IV 1 EA IV ONE ×2
[2023-02-16] MEDS ORDERED: VANCOMYCIN HCL 750 MG, VIAL MATE ADAPTER 1 EACH in D5W 250 ML IV ONE ×3
[2023-02-16 01:30] VITALS: BP 140/88; TEMP 99.9; O2SAT 96
[2023-02-16] MEDS ORDERED: MIDAZOLAM 100MG/100ML-0.9%NACL 100 MG in IV 1 EA IV SCH (01:35)
[2023-02-16] MEDS ORDERED: MIDAZOLAM 5MG/ML 1ML VIAL IM ONE (01:35)
[2023-02-16] MEDS ORDERED: MIDAZOLAM INJ 2MG/2ML VIAL As Ordered ONE (01:39)
[2023-02-16] MEDS ORDERED: MIDAZOLAM INJ 2MG/2ML VIAL IV ONE (01:40)
[2023-02-16] MEDS ORDERED: propofoL 1,000 MG in IV 1 EA IV SCH (01:45)
[2023-02-16 01:59] VITALS: O2SAT 98
[2023-02-16 02:00] VITALS: BP 142/85; O2SAT 100
[2023-02-16] MEDS ORDERED: VALPROATE SOD INJ 1,000 MG in D5W 50 ML IV ONE (02:00)
[2023-02-16] MEDS ORDERED: MIDAZOLAM 5MG/ML 1ML VIAL IM STA (02:05)
[2023-02-16] MEDS ORDERED: propofoL 200 MG/20 ML VIAL IV ONE (02:10)
[2023-02-16] MEDS ORDERED: ROCURONIUM BROMIDE 50MG/5ML VIAL IV ONE (02:10)
[2023-02-16] MEDS ORDERED: PROPOFOL 1,000 MG/100 ML VIAL As Ordered ONE (02:14)
[2023-02-16 02:25] VITALS: BP 136/85; O2SAT 100
[2023-02-16] MEDS ORDERED: FLUDROCORTISONE ACETATE 0.1 MG TAB PO SCH (09:00)
[2023-02-16] MEDS ORDERED: CYANOCOBALAMIN 500 MCG TAB PO SCH (09:00)
[2023-02-16] MEDS ORDERED: THIAMINE 100 MG TAB PO SCH (09:00)
[2023-02-16] MEDS ORDERED: HYDROCORTISONE 5MG TABLET PO SCH (09:00)
[2023-02-16] MEDS ORDERED: PYRIDOXINE 50 MG TAB PO SCH (09:00)
[2023-02-16] MEDS ORDERED: VITAMIN D 1,000 INTERNATIONAL UNITS TABLET PO SCH (09:00)
[2023-02-16] MEDS ORDERED: PANTOPRAZOLE 40MG TAB (PROTONIX) PO SCH (09:00)
[2023-02-16] MEDS ORDERED: DIVALPROEX 500 MG TAB PO SCH (11:00)
[2023-02-16] MEDS ORDERED: VANCOMYCIN HCL 1,000 MG, VIAL MATE ADAPTER 1 EACH in D5W 250 ML IV SCH (16:00)
[2023-02-16] MEDS ORDERED: cefTRIAXone SOD 2 GM in D5W MINI-BAG PLUS 50 ML IV SCH (16:00)
== END 2023-02-16 02:33 | disposition other institution (70) | DRG 640 ==
LOC: EDBD 13:33 → M ED 13:33 → M ED INP 17:43 → M PCU 22:10 → M ICU 02-16 01:25
PROVIDERS: ADMIT Internal Medicine; ATTEND Internal Medicine
PROC: 5A1D80Z Performance of Urinary Filtration, Prolonged Intermittent, 6-18 hours Per Day (ICD-10-PCS; principal; 2023-02-15)
PROC: 0BH17EZ Insertion of Endotracheal Airway into Trachea, Via Natural or Artificial Opening (ICD-10-PCS; 2023-02-16)
PROC: 5A1935Z Respiratory Ventilation, Less than 24 Consecutive Hours (ICD-10-PCS; 2023-02-16)
DX: E87.5 Hyperkalemia (principal); N18.6 End stage renal disease; G93.41 Metabolic encephalopathy; T86.11 Kidney transplant rejection; E27.1 Primary adrenocortical insufficiency; E72.20 Disorder of urea cycle metabolism, unspecified; I12.0 Hypertensive chronic kidney disease with stage 5 chronic kidney disease or end stage renal disease; R25.9 Unspecified abnormal involuntary movements; R45.1 Restlessness and agitation; R50.9 Fever, unspecified; E87.20 Acidosis, unspecified; M54.50 Low back pain, unspecified; E16.2 Hypoglycemia, unspecified; G89.29 Other chronic pain; E53.8 Deficiency of other specified B group vitamins; F41.9 Anxiety disorder, unspecified; Z87.891 Personal history of nicotine dependence; Z99.2 Dependence on renal dialysis; Z79.899 Other long term (current) drug therapy; Z88.8 Allergy status to other drugs, medicaments and biological substances; Z20.822 Contact with and (suspected) exposure to COVID-19; Q63.8 Other specified congenital malformations of kidney; Z87.820 Personal history of traumatic brain injury

== ENCOUNTER → 2023-04-25 | Outpatient (CLI) | payer MEDICARE, MEDICAID ==
[~2023-04-25] MED LIST changes: +HYDR-161 PO; -HYDR-3910 PO; -HYDR10TAB PO; -HYDR25TA PO; +HYDR25TA87 PO; +HYDR25TA88 PO; +LABE100T40 PO; -LABE100T71 PO; -MIRA1POW3 PO; +MIRA33506 PO; +QUET100T2 PO
== END ==
LOC: M WUC 08:14
PROVIDERS: ATTEND Student in an Organized Health Care Education/Training Program
DX: E27.1 Primary adrenocortical insufficiency (principal)

== ENCOUNTER 2023-04-28 18:39 | Inpatient (IN) | payer MEDICARE, MEDICAID ==
[~2023-04-28] VITALS: Ht 182.9 cm; Wt 91.0 kg
[2023-04-28] MEDS ORDERED: ONDANSETRON 4MG 2ML VIAL As Ordered ONE (20:16)
[2023-04-28] MEDS: MORPHINE 4 MG/ML 1ML VIAL IV PRN (20:18)
[2023-04-28 20:20] LABS: VENOUS BASE EXCESS -6.2 (-2.0-2.0); VENOUS HCO3 18.2 MMOL/L (23.0-27.0); VENOUS O2 SATURATION 90.1 % (60.0-80.0); VENOUS PARTIAL PRESSURE CO2 31.4 mmHg (38.0-50.0); VENOUS PARTIAL PRESSURE O2 63.4 mmHg (30.0-50.0); VENOUS PH 7.381 UNITS (7.330-7.430); VENOUS STANDARD HCO3 19.2 MMOL/L; VENOUS TOTAL CO2 19.2 MMOL/L (24.0-28.0)
[2023-04-28 20:26] LABS: BASO # 0.1 10^3/uL (0.0-0.2); BASO % 0.6 % (0.0-1.0); EOS % 0.2 % (0.0-3.0); HEMATOCRIT 21.2 % (42.0-52.0); LYMPH # 1.1 10^3/uL (1.5-5.0); LYMPH % 10.9 % (24.0-44.0); MEAN CORPUSCULAR HEMOGLOBIN 29.9 pg (27.0-33.0); MEAN CORPUSCULAR HGB CONC 32.5 g/dl (32.0-36.5); MEAN CORPUSCULAR VOLUME 91.8 fl (80.0-96.0); MONO # 0.8 10^3/uL (0.0-0.8); MONO % 7.9 % (2.0-8.0); NEUTROPHILS # 8.2 10^3/uL (1.5-8.5); PLATELET COUNT, AUTOMATED 209 10^3/uL (150-450); RED BLOOD COUNT 2.31 10^6/uL (4.30-6.10); WHITE BLOOD COUNT 10.2 10^3/uL (4.0-10.0)
[2023-04-28] MEDS: ONDANSETRON 4MG 2ML VIAL IV ONE (20:28)
[2023-04-28 20:32] LABS: HEMOGLOBIN 6.9 g/dl (13.5-17.5)
[2023-04-28] MEDS ORDERED: ISOVUE-370 76% 100ML VIAL As Ordered ONE (20:34)
[2023-04-28 20:45] LABS: INR 1.02; PARTIAL THROMBOPLASTIN TIME 35.5 SECONDS (24.8-34.2); PROTHROMBIN TIME 13.1 SECONDS (12.5-14.5)
[2023-04-28 20:49] LABS: LIPASE 42 U/L (12-53)
[2023-04-28 20:50] LABS: CK-MB VALUE MASS < 1.0 NG/ML (<3.6); VALPROIC ACID (DEPAKOTE) 25.8 UG/ML (50.0-100.0)
[2023-04-28 20:52] LABS: ALBUMIN 3.1 G/DL (3.2-5.2); ALKALINE PHOSPHATASE 89 U/L (46-116); ALT/SGPT 10 U/L (7.0-40); AST/SGOT 10 U/L (<34); BILIRUBIN,DIRECT 0.1 MG/DL (<0.4); BILIRUBIN,TOTAL 0.3 MG/DL (0.3-1.2); BLOOD UREA NITROGEN 74 MG/DL (9-23); CALCIUM LEVEL 8.6 MG/DL (8.5-10.1); CARBON DIOXIDE LEVEL 17 MMOL/L (20-31); CHLORIDE LEVEL 105 MMOL/L (98-107); CPK CREATINE PHOSPHOKINASE 34 U/L (46-171); CREATININE FOR GFR 6.99 MG/DL (0.70-1.30); GLOMERULAR FILTRATION RATE 9.2 (>60); GLUCOSE, FASTING 82 MG/DL (60-100); MB/CK RELATIVE INDEX 2.94 (< OR =4); POTASSIUM SERUM 5.3 MMOL/L (3.5-5.1); SODIUM LEVEL 137 MMOL/L (136-145); TOTAL PROTEIN 6.3 G/DL (5.7-8.2)
[2023-04-28] MEDS: PIPERACILLIN/TAZOBACTAM SOD 4.5 GM in D5W MINI-BAG PLUS 50 ML IV ONE (22:01)
[2023-04-28] MEDS: IPRATROPIUM 0.5MG/ALBUTEROL 2.5MG INH SOL UD 3ML (DUONEB) NEB SCH (22:12)
[2023-04-28 22:17] LABS: ABG BASE EXCESS -8.6 (-2.0-2.0); ABG HCO3 16.5 MMOL/L (22.0-26.0); ABG PARTIAL PRESSURE CO2 32.2 mmHg (35.0-45.0); ABG PARTIAL PRESSURE O2 111.1 mmHg (75.0-100.0); ABG STANDARD HCO3 17.4 MMOL/L. (22.0-26.0); ABG TOTAL CO2 17.5 MMOL/L (22.0-29.0); ABG pH (ARTERIAL) 7.327 UNITS (7.350-7.450)
[2023-04-28] MEDS: HYDROCORTISONE 100MG/2ML VIAL IV ONE (23:13)
[2023-04-28] MEDS ORDERED: HYDR100T PO (23:42)
[2023-04-28] MEDS ORDERED: NIFE1TAB52 PO (23:42)
[2023-04-28] MEDS ORDERED: HYDR-3363 PO (23:42)
[2023-04-28] MEDS ORDERED: DIVA250T67 PO (23:42)
[2023-04-28] MEDS ORDERED: LORA1TAB23 PO (23:42)
[2023-04-28] MEDS ORDERED: PROP40TA62 PO (23:42)
[2023-04-28] MEDS ORDERED: ACET650T15 PO (23:43)
[2023-04-28] MEDS ORDERED: EQL50TAB2 PO (23:44)
[2023-04-28] MEDS ORDERED: SEVE800T3 PO (23:44)
[2023-04-28] MEDS ORDERED: HOME MED LIST COMPLETE! XX SCH (23:45)
[2023-04-29] VITALS (29 sets, daily range): BP systolic 143–210; BP diastolic 76–106; TEMP 98–99.5; O2SAT 87–100
[2023-04-29] MEDS ORDERED: ALBUTEROL SULFATE 2.5MG/0.5ML INH NEB SOLN NEB PRN (00:05)
[2023-04-29] MEDS ORDERED: ONDANSETRON 4MG 2ML VIAL IV PRN (02:00)
[2023-04-29] MEDS: VANCOMYCIN HCL 1,000 MG, VIAL MATE ADAPTER 1 EACH in NS 250 ML IV ONE (02:15)
[2023-04-29] MEDS: hydrALAZINE 20MG/ML 1ML VIAL IV ONE (02:58)
[2023-04-29] MEDS: MORPHINE 4 MG/ML 1ML VIAL IV ONE (02:58)
[2023-04-29 04:48] LABS: MEAN CORPUSCULAR HGB CONC 32.2 g/dl (32.0-36.5); MEAN CORPUSCULAR VOLUME 93.2 fl (80.0-96.0); PLATELET COUNT, AUTOMATED 190 10^3/uL (150-450); WHITE BLOOD COUNT 8.9 10^3/uL (4.0-10.0)
[2023-04-29 04:51] LABS: HEMATOCRIT 20.5 % (42.0-52.0); HEMOGLOBIN 6.6 g/dl (13.5-17.5)
[2023-04-29] MEDS ORDERED: HEPARIN 1,000UNITS/ML 10ML VIAL (FOR RADIOLOGY & DIALYSIS ONLY) XX SCH (05:00)
[2023-04-29] MEDS ORDERED: HEPARIN 1,000UNITS/ML 10ML VIAL (FOR RADIOLOGY & DIALYSIS ONLY) IV PRN (05:00)
[2023-04-29] MEDS ORDERED: SODIUM CHLORIDE 0.9% 1000ML IV PRN (05:00)
[2023-04-29 05:09] LABS: VANCOMYCIN RANDOM 17.9 UG/ML
[2023-04-29 05:12] LABS: CALCIUM LEVEL 8.2 MG/DL (8.5-10.1); CREATININE FOR GFR 7.71 MG/DL (0.70-1.30); GLOMERULAR FILTRATION RATE 8.2 (>60); MAGNESIUM LEVEL 1.9 MG/DL (1.8-2.4); PHOSPHORUS LEVEL 10.8 MG/DL (2.5-4.9); POTASSIUM SERUM 6.3 MMOL/L (3.5-5.1)
[2023-04-29] MEDS: CALCIUM GLUCONATE 1,000 MG in D5W MINI-BAG PLUS 100 ML IV ONE (05:29)
[2023-04-29] MEDS: HEPARIN SOD (PORCINE) 5000UNITS/ML 1ML VIAL/SYRINGE SC SCH (05:29)
[2023-04-29] MEDS: DEXTROSE 50% 50ML SYRINGE IV STA (05:30)
[2023-04-29] MEDS: HumuLIN R (REGULAR) INSULIN (NovoLIN R) **100U/ML** PER UNIT IV STA (05:30)
[2023-04-29] MEDS: SODIUM BICARBONATE 8.4% INJ 50ML SYRINGE IV STA (05:30)
[2023-04-29] MEDS: IPRATROPIUM 0.5MG/ALBUTEROL 2.5MG INH SOL UD 3ML (DUONEB) NEB SCH (07:51)
[2023-04-29 08:33] LABS: PROCALCITONIN 0.31 ng/ml
[2023-04-29] MEDS: **hydrALAZINE** 50 MG TAB PO SCH (11:17)
[2023-04-29] MEDS: NIFEdipine 30MG XL TAB PO SCH (11:25)
[2023-04-29] MEDS: PIPERACILLIN/TAZOBACTAM SOD 4.5 GM in D5W MINI-BAG PLUS 50 ML IV SCH (12:22)
[2023-04-29] MEDS: MORPHINE 2 MG/ML 1ML VIAL IV ONE (12:23)
[2023-04-29] MEDS ORDERED: IPRATROPIUM 0.5MG/ALBUTEROL 2.5MG INH SOL UD 3ML (DUONEB) NEB PRN (13:20)
[2023-04-29] MEDS: LABETALOL 100MG TAB PO SCH (15:25)
[2023-04-29 15:28] LABS: HEMATOCRIT 24.1 % (42.0-52.0); HEMOGLOBIN 8.3 g/dl (13.5-17.5); MEAN CORPUSCULAR HEMOGLOBIN 30.5 pg (27.0-33.0); MEAN CORPUSCULAR HGB CONC 34.4 g/dl (32.0-36.5); MEAN CORPUSCULAR VOLUME 88.6 fl (80.0-96.0); PLATELET COUNT, AUTOMATED 219 10^3/uL (150-450); RED BLOOD COUNT 2.72 10^6/uL (4.30-6.10); WHITE BLOOD COUNT 7.9 10^3/uL (4.0-10.0)
[2023-04-29 15:32] LABS: CALCIUM LEVEL 8.3 MG/DL (8.5-10.1); CREATININE FOR GFR 3.69 MG/DL (0.70-1.30); GLOMERULAR FILTRATION RATE 19.2 (>60); POTASSIUM SERUM 3.3 MMOL/L (3.5-5.1)
[2023-04-29] MEDS: VANCOMYCIN HCL 1,000 MG, VIAL MATE ADAPTER 1 EACH in D5W 250 ML IV SCH (16:13)
[2023-04-29] MEDS ORDERED: LORazepam 1 MG TAB PO PRN (16:25)
[2023-04-29] MEDS: (RENVELA) SEVELAMER **CARBONate** 800 MG TAB PO SCH (17:41)
[2023-04-29 18:12] LABS: PERCENT SATURATION 24.7 % (19.7-50.0)
[2023-04-29 18:14] LABS: FERRITIN 1555.7 NG/ML (10.5-307.3)
[2023-04-29 18:15] LABS: FOLATE 6.55 NG/ML (>5.4)
[2023-04-29] MEDS: DIVALPROEX 250MG TAB PO SCH (21:07)
[2023-04-29] MEDS: ACETAMINOPHEN 650MG ER TAB (TYLENOL ARTHRITIS) PO PRN (21:37)
[2023-04-30] VITALS (9 sets, daily range): BP systolic 139–196; BP diastolic 65–96; TEMP 98.5–99.4; O2SAT 94–98
[2023-04-30 05:39] LABS: BASO # 0.1 10^3/uL (0.0-0.2); BASO % 0.8 % (0.0-1.0); HEMATOCRIT 22.1 % (42.0-52.0); HEMOGLOBIN 7.3 g/dl (13.5-17.5); LYMPH % 15.2 % (24.0-44.0); MEAN CORPUSCULAR HEMOGLOBIN 29.7 pg (27.0-33.0); MEAN CORPUSCULAR VOLUME 89.8 fl (80.0-96.0); MONO # 0.8 10^3/uL (0.0-0.8); MONO % 11.5 % (2.0-8.0); NEUTROPHILS # 4.8 10^3/uL (1.5-8.5); PLATELET COUNT, AUTOMATED 201 10^3/uL (150-450); RED BLOOD COUNT 2.46 10^6/uL (4.30-6.10); WHITE BLOOD COUNT 6.6 10^3/uL (4.0-10.0)
[2023-04-30 05:57] LABS: CORTISOL AM 5.2 UG/DL (4.3-22.4); VANCOMYCIN RANDOM 20.9 UG/ML
[2023-04-30 05:59] LABS: CALCIUM LEVEL 7.9 MG/DL (8.5-10.1); CREATININE FOR GFR 5.39 MG/DL (0.70-1.30); GLOMERULAR FILTRATION RATE 12.4 (>60); POTASSIUM SERUM 3.9 MMOL/L (3.5-5.1)
[2023-04-30] MEDS: THIAMINE 100 MG TAB PO SCH (10:15)
[2023-04-30] MEDS: CYANOCOBALAMIN 500 MCG TAB PO SCH (10:15)
[2023-04-30] MEDS ORDERED: LABE100T6 PO (13:20)
[2023-04-30] MEDS ORDERED: SEVE800T3 PO (15:05)
[2023-04-30] MEDS ORDERED: (RENVELA) SEVELAMER **CARBONate** 800 MG TAB PO SCH (18:00)
== END 2023-04-30 14:20 | disposition home or self-care (01) | DRG 640 ==
LOC: M ED 18:39 → EDBD 18:39 → M ED INP 04-29 00:01 → ENRESERV 04-29 00:58 → M ICU 04-29 01:35
PROVIDERS: ADMIT Internal Medicine Pulmonary Disease; ATTEND Internal Medicine
PROC: 30233N1 Transfusion of Nonautologous Red Blood Cells into Peripheral Vein, Percutaneous Approach (ICD-10-PCS; principal; 2023-04-29)
DX: E87.70 Fluid overload, unspecified (principal); N18.6 End stage renal disease; J96.01 Acute respiratory failure with hypoxia; E27.40 Unspecified adrenocortical insufficiency; Z94.0 Kidney transplant status; I12.0 Hypertensive chronic kidney disease with stage 5 chronic kidney disease or end stage renal disease; J98.11 Atelectasis; I16.9 Hypertensive crisis, unspecified; J81.1 Chronic pulmonary edema; F41.9 Anxiety disorder, unspecified; D51.0 Vitamin B12 deficiency anemia due to intrinsic factor deficiency; M54.50 Low back pain, unspecified; G89.29 Other chronic pain; D63.1 Anemia in chronic kidney disease; G62.9 Polyneuropathy, unspecified; K52.9 Noninfective gastroenteritis and colitis, unspecified; E87.20 Acidosis, unspecified; E87.5 Hyperkalemia; E87.6 Hypokalemia; K62.89 Other specified diseases of anus and rectum; R01.1 Cardiac murmur, unspecified; E53.8 Deficiency of other specified B group vitamins; Z79.899 Other long term (current) drug therapy; Z88.8 Allergy status to other drugs, medicaments and biological substances; Z99.2 Dependence on renal dialysis; Z87.820 Personal history of traumatic brain injury

== ENCOUNTER 2023-06-21 22:48 | Emergency (ER) | payer MEDICARE, MEDICAID ==
[~2023-06-21] VITALS: Ht 182.9 cm; Wt 80.9 kg
[~2023-06-21 22:48] MED LIST changes: +ACET650T15 PO; +DIVA250T67 PO; +EQL50TAB2 PO; +HYDR100T PO; +LORA1TAB23 PO; +NIFE1TAB52 PO; +PROP40TA62 PO; +SEVE800T3 PO
[2023-06-22] MEDS ORDERED: LEVO1TAB38 PO (02:58)
[2023-06-22] MEDS: KETOROLAC 30 MG/ML 1ML VIAL IV ONE (03:02)
[2023-06-22] MEDS: LevoFLOXacin 500 MG TABLET PO ONE (03:04)
[2023-06-22 03:09] LABS: BASO % 0.4 % (0.0-1.0); HEMATOCRIT 27.7 % (42.0-52.0); LYMPH # 1.2 10^3/uL (1.5-5.0); MEAN CORPUSCULAR HEMOGLOBIN 29.7 pg (27.0-33.0); MEAN CORPUSCULAR HGB CONC 32.5 g/dl (32.0-36.5); MEAN CORPUSCULAR VOLUME 91.4 fl (80.0-96.0); MONO # 1.6 10^3/uL (0.0-0.8); MONO % 15.4 % (2.0-8.0); NEUTROPHILS # 7.6 10^3/uL (1.5-8.5); NEUTROPHILS % 72.8 % (36.0-66.0); PLATELET COUNT, AUTOMATED 238 10^3/uL (150-450); RED BLOOD COUNT 3.03 10^6/uL (4.30-6.10); WHITE BLOOD COUNT 10.4 10^3/uL (4.0-10.0)
[2023-06-22] MEDS: ACETAMINOPHEN TAB 650MG DOSE (2X325MG) PO ONE (03:34)
[2023-06-22 03:49] VITALS: BP 152/78; TEMP 99.6; O2SAT 98
[2023-06-22 03:51] LABS: CALCIUM LEVEL 9.4 MG/DL (8.5-10.1); CREATININE FOR GFR 5.2 MG/DL (0.70-1.30); POTASSIUM SERUM 6.3 MMOL/L (3.5-5.1)
== END 2023-06-22 03:55 | disposition home or self-care (01) ==
LOC: M ED 22:48
DX: N45.1 Epididymitis (principal); N43.3 Hydrocele, unspecified; I12.0 Hypertensive chronic kidney disease with stage 5 chronic kidney disease or end stage renal disease; Z99.2 Dependence on renal dialysis; F17.200 Nicotine dependence, unspecified, uncomplicated; Z79.899 Other long term (current) drug therapy; Z88.8 Allergy status to other drugs, medicaments and biological substances
CPT/HCPCS: 76870; 80048; 85025; 87040; 93976; 96374; 99284; J1885

== ENCOUNTER 2023-08-14 06:25 | Emergency (ER) | payer MEDICARE, MEDICAID ==
[~2023-08-14] VITALS: Ht 182.9 cm; Wt 82.9 kg
[~2023-08-14 06:25] MED LIST changes: +LEVO1TAB38 PO; +ONDA-282 PO; -ONDA4TAB6 PO
[2023-08-14 06:26] VITALS: TEMP 99.4
[2023-08-14] MEDS: ACETAMINOPHEN *IV* 1,000 MG in IV 1 EA IV ONE (07:46)
[2023-08-14 07:58] LABS: HEMATOCRIT 25.6 % (42.0-52.0); HEMOGLOBIN 8.2 g/dl (13.5-17.5); MEAN CORPUSCULAR HEMOGLOBIN 27.6 pg (27.0-33.0); MEAN CORPUSCULAR VOLUME 86.2 fl (80.0-96.0); PLATELET COUNT, AUTOMATED 229 10^3/uL (150-450); RED BLOOD COUNT 2.97 10^6/uL (4.30-6.10); WHITE BLOOD COUNT 9.1 10^3/uL (4.0-10.0)
[2023-08-14] MEDS: ONDANSETRON 4MG 2ML VIAL IV ONE (08:31)
[2023-08-14] MEDS: MORPHINE 4 MG/ML 1ML VIAL IV ONE (08:32)
[2023-08-14 08:46] LABS: ALBUMIN 2.7 G/DL (3.2-5.2); BILIRUBIN,DIRECT 0.2 MG/DL (<0.4); BILIRUBIN,TOTAL 0.4 MG/DL (0.3-1.2); CALCIUM LEVEL 9.6 MG/DL (8.5-10.1); CREATININE FOR GFR 7.33 MG/DL (0.70-1.30); GLOMERULAR FILTRATION RATE 8.7 (>60); POTASSIUM SERUM 6.1 MMOL/L (3.5-5.1); TOTAL PROTEIN 5.6 G/DL (5.7-8.2)
[2023-08-14] MEDS ORDERED: DOXY100C82 PO (08:47)
[2023-08-14] MEDS ORDERED: CEFD300C PO (08:47)
[2023-08-14] MEDS ORDERED: LIDOCAINE 2% 5ML JELLY UROJET TOP ONE (08:50)
[2023-08-14] MEDS ORDERED: SILD50TA2 PO (08:53)
[2023-08-14] MEDS ORDERED: HOME MED LIST COMPLETE! XX SCH (08:55)
[2023-08-14] MEDS: MORPHINE 4 MG/ML 1ML VIAL IM ONE (08:58)
[2023-08-14 09:00] VITALS: BP 181/114; O2SAT 96
== END 2023-08-14 09:09 | disposition home or self-care (01) ==
LOC: M ED 06:25
DX: J18.9 Pneumonia, unspecified organism (principal); N18.6 End stage renal disease; Z99.2 Dependence on renal dialysis; Z87.442 Personal history of urinary calculi; Z79.899 Other long term (current) drug therapy; Z88.8 Allergy status to other drugs, medicaments and biological substances
CPT/HCPCS: 71045; 74176; 80048; 80076; 83690; 85027; 96372; 96374; 99284; J0131

== ENCOUNTER 2023-09-20 13:56 | Inpatient (IN) | payer MEDICARE, MEDICAID ==
[~2023-09-20] VITALS: Ht 182.9 cm; Wt 79.4 kg
[~2023-09-20 13:56] MED LIST changes: +CEFD300C PO; +CEPH500C PO; +DOXY100C82 PO; +LOKE10PA PO; +SILD50TA2 PO; +TRAZ-257 PO
[2023-09-20] MEDS: MORPHINE 2 MG/ML 1ML VIAL IV PRN (14:58)
[2023-09-20] MEDS: ACETAMINOPHEN 325 MG TAB PO ONE (14:59)
[2023-09-20 15:07] LABS: BASO % 0.4 % (0.0-1.0); HEMATOCRIT 24.3 % (42.0-52.0); HEMOGLOBIN 7.8 g/dl (13.5-17.5); LYMPH # 0.7 10^3/uL (1.5-5.0); LYMPH % 6.3 % (24.0-44.0); MEAN CORPUSCULAR HEMOGLOBIN 26.5 pg (27.0-33.0); MEAN CORPUSCULAR HGB CONC 32.1 g/dl (32.0-36.5); MEAN CORPUSCULAR VOLUME 82.7 fl (80.0-96.0); MONO # 0.7 10^3/uL (0.0-0.8); MONO % 6.3 % (2.0-8.0); NEUTROPHILS # 8.9 10^3/uL (1.5-8.5); NEUTROPHILS % 86.7 % (36.0-66.0); PLATELET COUNT, AUTOMATED 252 10^3/uL (150-450); RED BLOOD COUNT 2.94 10^6/uL (4.30-6.10); WHITE BLOOD COUNT 10.3 10^3/uL (4.0-10.0)
[2023-09-20 15:16] LABS: ERYTHROCYTE SEDIMENTATION RATE 80 mm/hr (0-15)
[2023-09-20] MEDS: NS 500 ML IV ONE ×2 (15:27→17:47)
[2023-09-20] MEDS: PIPERACILLIN/TAZOBACTAM SOD 4.5 GM in D5W MINI-BAG PLUS 50 ML IV ONE (15:33)
[2023-09-20 15:37] LABS: C REACTIVE PROTEIN QUANTITATIV 9.1 MG/DL (<1.0)
[2023-09-20 15:50] LABS: PROCALCITONIN 1.93 ng/ml
[2023-09-20 15:55] LABS: ALBUMIN 2.6 G/DL (3.2-5.2); BILIRUBIN,DIRECT 0.2 MG/DL (<0.4); BILIRUBIN,TOTAL 0.4 MG/DL (0.3-1.2); CALCIUM LEVEL 9.3 MG/DL (8.5-10.1); CREATININE FOR GFR 3.93 MG/DL (0.70-1.30); GLOMERULAR FILTRATION RATE 17.9 (>60); POTASSIUM SERUM 4.7 MMOL/L (3.5-5.1); TOTAL PROTEIN 5.9 G/DL (5.7-8.2)
[2023-09-20] MEDS ORDERED: LABE100T6 PO (18:17)
[2023-09-20] MEDS ORDERED: N-ACCAP PO (18:18)
[2023-09-20] MEDS ORDERED: HOME MED LIST COMPLETE! XX SCH (18:25)
[2023-09-20] MEDS: VANCOMYCIN HCL 1,000 MG, VIAL MATE ADAPTER 1 EACH in D5W 250 ML IV ONE (19:45)
[2023-09-20] MEDS: DIVALPROEX 250MG TAB PO SCH (20:57)
[2023-09-20] MEDS: **hydrALAZINE** 50 MG TAB PO SCH (20:57)
[2023-09-20] MEDS: LABETALOL 100MG TAB PO SCH (20:57)
[2023-09-20] MEDS: PYRIDOXINE 50 MG TAB PO SCH (21:00)
[2023-09-20] MEDS: HEPARIN SOD (PORCINE) 5000UNITS/ML 1ML VIAL/SYRINGE SC SCH (21:35)
[2023-09-20] MEDS: HYDROMORPHONE HCL 0.5 MG/ 0.5 ML SYRINGE IV PRN (21:41)
[2023-09-21] VITALS (7 sets, daily range): BP systolic 130–168; BP diastolic 79–95; TEMP 97.2–98.1; O2SAT 97–99
[2023-09-21] MEDS: PIPERACILLIN/TAZOBACTAM SOD 4.5 GM in D5W MINI-BAG PLUS 50 ML IV SCH (03:09)
[2023-09-21] MEDS: ACETAMINOPHEN 650MG ER TAB (TYLENOL ARTHRITIS) PO PRN (03:13)
[2023-09-21 07:49] LABS: MEAN CORPUSCULAR HEMOGLOBIN 25.9 pg (27.0-33.0); MEAN CORPUSCULAR HGB CONC 31.1 g/dl (32.0-36.5); MEAN CORPUSCULAR VOLUME 83.3 fl (80.0-96.0); PLATELET COUNT, AUTOMATED 215 10^3/uL (150-450); RED BLOOD COUNT 2.63 10^6/uL (4.30-6.10); WHITE BLOOD COUNT 5.8 10^3/uL (4.0-10.0)
[2023-09-21] MEDS: (RENVELA) SEVELAMER **CARBONate** 800 MG TAB PO SCH ×2 (08:00→17:35)
[2023-09-21 08:04] LABS: HEMATOCRIT 21.9 % (42.0-52.0); HEMOGLOBIN 6.8 g/dl (13.5-17.5)
[2023-09-21 08:10] LABS: VANCOMYCIN RANDOM 13.3 UG/ML
[2023-09-21 08:14] LABS: CALCIUM LEVEL 9.4 MG/DL (8.5-10.1); CREATININE FOR GFR 5.68 MG/DL (0.70-1.30); GLOMERULAR FILTRATION RATE 11.7 (>60); POTASSIUM SERUM 4.1 MMOL/L (3.5-5.1)
[2023-09-21] MEDS ORDERED: ACETYLCYSTEINE 600 MG PO SCH (09:00)
[2023-09-21 09:14] LABS: PERCENT SATURATION 6.1 % (19.7-50.0)
[2023-09-21 09:17] LABS: FERRITIN 1048.1 NG/ML (10.5-307.3)
[2023-09-21] MEDS: NIFEdipine 30MG XL TAB PO SCH (09:17)
[2023-09-21] MEDS: VITAMIN D 1,000 INTERNATIONAL UNITS TABLET PO SCH (09:18)
[2023-09-21] MEDS: CYANOCOBALAMIN 500 MCG TAB PO SCH (09:18)
[2023-09-21] MEDS: THIAMINE 100 MG TAB PO SCH (09:18)
[2023-09-21] MEDS: VANCOMYCIN HCL 500 MG in D5W MINI-BAG PLUS 100 ML IV ONE (17:34)
[2023-09-21] MEDS: DIVALPROEX 500 MG TAB PO SCH (20:12)
[2023-09-21] MEDS: HYDROMORPHONE HCL 0.5 MG/ 0.5 ML SYRINGE IV PRN (23:21)
[2023-09-22] VITALS (7 sets, daily range): BP systolic 154–177; BP diastolic 86–102; TEMP 97.6–99.1; O2SAT 88–96
[2023-09-22 06:48] LABS: BASO # 0.1 10^3/uL (0.0-0.2); HEMATOCRIT 24.3 % (42.0-52.0); HEMOGLOBIN 7.7 g/dl (13.5-17.5); LYMPH # 0.9 10^3/uL (1.5-5.0); LYMPH % 14.9 % (24.0-44.0); MEAN CORPUSCULAR HEMOGLOBIN 26.5 pg (27.0-33.0); MEAN CORPUSCULAR HGB CONC 31.7 g/dl (32.0-36.5); MEAN CORPUSCULAR VOLUME 83.5 fl (80.0-96.0); MONO # 0.5 10^3/uL (0.0-0.8); MONO % 8.5 % (2.0-8.0); NEUTROPHILS # 4.4 10^3/uL (1.5-8.5); NEUTROPHILS % 75.4 % (36.0-66.0); PLATELET COUNT, AUTOMATED 239 10^3/uL (150-450); RED BLOOD COUNT 2.91 10^6/uL (4.30-6.10); WHITE BLOOD COUNT 5.9 10^3/uL (4.0-10.0)
[2023-09-22 07:13] LABS: VANCOMYCIN RANDOM 18.3 UG/ML
[2023-09-22 07:16] LABS: CALCIUM LEVEL 10.5 MG/DL (8.5-10.1); CREATININE FOR GFR 7.2 MG/DL (0.70-1.30); GLOMERULAR FILTRATION RATE 8.9 (>60)
[2023-09-22] MEDS: diphenhydrAMINE 25MG CAP PO PRN (08:35)
[2023-09-23 04:11] VITALS: BP 156/84; TEMP 99.3; O2SAT 97
[2023-09-23] MEDS ORDERED: HEPARIN 1,000UNITS/ML 10ML VIAL (FOR RADIOLOGY & DIALYSIS ONLY) XX SCH (06:00)
[2023-09-23] MEDS ORDERED: LIDOCAINE 1% SDV 5ML VIAL SC PRN (06:00)
[2023-09-23] MEDS ORDERED: SODIUM CHLORIDE 0.9% 1000ML IV PRN (06:00)
[2023-09-23 06:22] LABS: BASO # 0.1 10^3/uL (0.0-0.2); BASO % 1.2 % (0.0-1.0); HEMATOCRIT 26.1 % (42.0-52.0); HEMOGLOBIN 8.3 g/dl (13.5-17.5); LYMPH % 20.4 % (24.0-44.0); MEAN CORPUSCULAR HEMOGLOBIN 26.2 pg (27.0-33.0); MEAN CORPUSCULAR HGB CONC 31.8 g/dl (32.0-36.5); MEAN CORPUSCULAR VOLUME 82.3 fl (80.0-96.0); MONO # 0.4 10^3/uL (0.0-0.8); MONO % 7.7 % (2.0-8.0); NEUTROPHILS # 3.6 10^3/uL (1.5-8.5); NEUTROPHILS % 70.5 % (36.0-66.0); PLATELET COUNT, AUTOMATED 250 10^3/uL (150-450); RED BLOOD COUNT 3.17 10^6/uL (4.30-6.10); WHITE BLOOD COUNT 5.1 10^3/uL (4.0-10.0)
[2023-09-23 06:41] LABS: VANCOMYCIN RANDOM 16.7 UG/ML
[2023-09-23 06:44] LABS: CALCIUM LEVEL 10.4 MG/DL (8.5-10.1); CREATININE FOR GFR 8.67 MG/DL (0.70-1.30); GLOMERULAR FILTRATION RATE 7.2 (>60); POTASSIUM SERUM 4.7 MMOL/L (3.5-5.1)
[2023-09-23 08:00] VITALS: BP 169/98; TEMP 97.7; O2SAT 97
[2023-09-23] MEDS: DARBEPOETIN 300MCG/0.6ML *DIALYSIS* SYRINGE IV SCH (10:21)
[2023-09-23 12:00] VITALS: BP 164/98; TEMP 99.1; O2SAT 99
[2023-09-23] MEDS: HEPARIN 1,000UNITS/ML 10ML VIAL (FOR RADIOLOGY & DIALYSIS ONLY) IV PRN (12:34)
[2023-09-23 16:00] VITALS: BP 168/102; TEMP 99.5; O2SAT 99
[2023-09-23] MEDS: VANCOMYCIN HCL 1,000 MG, VIAL MATE ADAPTER 1 EACH in D5W 250 ML IV SCH (16:25)
[2023-09-23 20:00] VITALS: BP 171/102; TEMP 98.8; O2SAT 95
[2023-09-24] VITALS (7 sets, daily range): BP systolic 133–178; BP diastolic 82–104; TEMP 98.6–99; O2SAT 97–98
[2023-09-24 07:24] LABS: BASO # 0.1 10^3/uL (0.0-0.2); BASO % 1.1 % (0.0-1.0); EOS % 0.6 % (0.0-3.0); HEMATOCRIT 27.1 % (42.0-52.0); HEMOGLOBIN 8.7 g/dl (13.5-17.5); LYMPH # 1.2 10^3/uL (1.5-5.0); LYMPH % 24.7 % (24.0-44.0); MEAN CORPUSCULAR HGB CONC 32.1 g/dl (32.0-36.5); MEAN CORPUSCULAR VOLUME 80.9 fl (80.0-96.0); MONO # 0.5 10^3/uL (0.0-0.8); NEUTROPHILS % 63.6 % (36.0-66.0); PLATELET COUNT, AUTOMATED 253 10^3/uL (150-450); RED BLOOD COUNT 3.35 10^6/uL (4.30-6.10); WHITE BLOOD COUNT 4.7 10^3/uL (4.0-10.0)
[2023-09-24 08:00] LABS: ALBUMIN 2.7 G/DL (3.2-5.2); CALCIUM LEVEL 10.5 MG/DL (8.5-10.1); CREATININE FOR GFR 5.25 MG/DL (0.70-1.30); GLOMERULAR FILTRATION RATE 12.8 (>60); PHOSPHORUS LEVEL 4.4 MG/DL (2.5-4.9); POTASSIUM SERUM 4.3 MMOL/L (3.5-5.1)
[2023-09-24] MEDS: LACTOBACILLUS ACIDOPHILUS CAP (BACID) PO SCH (20:17)
[2023-09-25] VITALS (7 sets, daily range): BP systolic 132–180; BP diastolic 72–92; TEMP 98.6–99.5; O2SAT 97–99
[2023-09-25] MEDS ORDERED: SODIUM CHLORIDE 0.9% 1000ML IV PRN (06:00)
[2023-09-25] MEDS ORDERED: HEPARIN 1,000UNITS/ML 10ML VIAL (FOR RADIOLOGY & DIALYSIS ONLY) IV PRN (06:00)
[2023-09-25] MEDS ORDERED: LIDOCAINE 1% SDV 5ML VIAL SC PRN (06:00)
[2023-09-25 06:06] LABS: BASO # 0.1 10^3/uL (0.0-0.2); BASO % 1.3 % (0.0-1.0); HEMATOCRIT 25.4 % (42.0-52.0); LYMPH # 1.4 10^3/uL (1.5-5.0); MEAN CORPUSCULAR HEMOGLOBIN 25.9 pg (27.0-33.0); MEAN CORPUSCULAR HGB CONC 31.5 g/dl (32.0-36.5); MEAN CORPUSCULAR VOLUME 82.2 fl (80.0-96.0); MONO # 0.5 10^3/uL (0.0-0.8); MONO % 8.7 % (2.0-8.0); NEUTROPHILS # 3.3 10^3/uL (1.5-8.5); NEUTROPHILS % 62.4 % (36.0-66.0); PLATELET COUNT, AUTOMATED 240 10^3/uL (150-450); RED BLOOD COUNT 3.09 10^6/uL (4.30-6.10); WHITE BLOOD COUNT 5.3 10^3/uL (4.0-10.0)
[2023-09-25 06:28] LABS: VANCOMYCIN RANDOM 20.9 UG/ML
[2023-09-25 06:29] LABS: ALBUMIN 2.3 G/DL (3.2-5.2); CALCIUM LEVEL 10.9 MG/DL (8.5-10.1); CREATININE FOR GFR 6.99 MG/DL (0.70-1.30); GLOMERULAR FILTRATION RATE 9.2 (>60); POTASSIUM SERUM 4.1 MMOL/L (3.5-5.1)
[2023-09-25] MEDS: HEPARIN 1,000UNITS/ML 10ML VIAL (FOR RADIOLOGY & DIALYSIS ONLY) XX SCH (11:11)
[2023-09-25] MEDS ORDERED: LIDOCAINE 1% MDV 20ML VIAL As Ordered ONE (11:50)
[2023-09-25] MEDS: VANCOMYCIN HCL 750 MG, VIAL MATE ADAPTER 1 EACH in D5W 250 ML IV SCH (16:47)
[2023-09-26] VITALS (13 sets, daily range): BP systolic 128–218; BP diastolic 62–110; TEMP 98.2–99; O2SAT 95–99
[2023-09-26 05:56] LABS: BASO # 0.1 10^3/uL (0.0-0.2); BASO % 1.3 % (0.0-1.0); HEMATOCRIT 26.1 % (42.0-52.0); HEMOGLOBIN 8.2 g/dl (13.5-17.5); LYMPH # 1.6 10^3/uL (1.5-5.0); LYMPH % 29.9 % (24.0-44.0); MEAN CORPUSCULAR HGB CONC 31.4 g/dl (32.0-36.5); MEAN CORPUSCULAR VOLUME 82.9 fl (80.0-96.0); MONO # 0.5 10^3/uL (0.0-0.8); MONO % 9.8 % (2.0-8.0); NEUTROPHILS # 3.1 10^3/uL (1.5-8.5); NEUTROPHILS % 58.6 % (36.0-66.0); PLATELET COUNT, AUTOMATED 243 10^3/uL (150-450); RED BLOOD COUNT 3.15 10^6/uL (4.30-6.10); WHITE BLOOD COUNT 5.3 10^3/uL (4.0-10.0)
[2023-09-26 06:29] LABS: ALBUMIN 2.6 G/DL (3.2-5.2); CREATININE FOR GFR 4.61 MG/DL (0.70-1.30); GLOMERULAR FILTRATION RATE 14.9 (>60); PHOSPHORUS LEVEL 4.5 MG/DL (2.5-4.9); POTASSIUM SERUM 3.8 MMOL/L (3.5-5.1)
[2023-09-26 08:47] LABS: PROCALCITONIN 6.66 ng/ml
[2023-09-26] MEDS: CARVedilol 12.5 MG TAB PO SCH (09:46)
[2023-09-26] MEDS ORDERED: ENALAPRILAT INJ 2.5MG/2ML VIAL IV ONE (11:00)
[2023-09-26] MEDS: **hydrALAZINE** 50 MG TAB PO SCH (12:13)
[2023-09-26] MEDS: oxyCODONE 5MG TAB PO PRN (12:19)
[2023-09-26] MEDS: cloNIDine 0.2 MG TAB PO STA (12:36)
[2023-09-26] MEDS ORDERED: propofoL 200 MG/20 ML VIAL As Ordered ONE (17:28)
[2023-09-26] MEDS ORDERED: LIDOCAINE 2% 100MG/5ML SDV (FOR ANES.) As Ordered ONE (17:28)
[2023-09-26] MEDS: CETACAINE SPRAY 5GM As Ordered ONE (17:53)
[2023-09-26] MEDS ORDERED: oxyCODONE 5MG TAB PO PRN (18:15)
[2023-09-26] MEDS ORDERED: fentaNYL 100 MCG/2 ML INJECTION IV PRN (18:15)
[2023-09-26] MEDS ORDERED: ONDANSETRON 4MG 2ML VIAL IV PRN (18:15)
[2023-09-27 00:32] VITALS: BP 158/62; TEMP 98.8; O2SAT 98
[2023-09-27 04:41] VITALS: BP 146/78; TEMP 98.6; O2SAT 100
[2023-09-27] MEDS ORDERED: HEPARIN 1,000UNITS/ML 10ML VIAL (FOR RADIOLOGY & DIALYSIS ONLY) IV PRN (06:00)
[2023-09-27] MEDS ORDERED: SODIUM CHLORIDE 0.9% 1000ML IV PRN (06:00)
[2023-09-27 07:16] LABS: BASO # 0.1 10^3/uL (0.0-0.2); BASO % 1.3 % (0.0-1.0); HEMATOCRIT 25.1 % (42.0-52.0); LYMPH # 1.5 10^3/uL (1.5-5.0); LYMPH % 27.6 % (24.0-44.0); MEAN CORPUSCULAR HEMOGLOBIN 26.6 pg (27.0-33.0); MEAN CORPUSCULAR HGB CONC 31.9 g/dl (32.0-36.5); MEAN CORPUSCULAR VOLUME 83.4 fl (80.0-96.0); MONO # 0.5 10^3/uL (0.0-0.8); MONO % 9.1 % (2.0-8.0); NEUTROPHILS # 3.3 10^3/uL (1.5-8.5); PLATELET COUNT, AUTOMATED 261 10^3/uL (150-450); RED BLOOD COUNT 3.01 10^6/uL (4.30-6.10); WHITE BLOOD COUNT 5.4 10^3/uL (4.0-10.0)
[2023-09-27 07:43] LABS: C REACTIVE PROTEIN QUANTITATIV 3.7 MG/DL (<1.0)
[2023-09-27 07:44] LABS: VANCOMYCIN RANDOM 20.9 UG/ML
[2023-09-27 07:49] LABS: ALBUMIN 2.4 G/DL (3.2-5.2); CALCIUM LEVEL 9.9 MG/DL (8.5-10.1); CREATININE FOR GFR 6.47 MG/DL (0.70-1.30); GLOMERULAR FILTRATION RATE 10.1 (>60); PHOSPHORUS LEVEL 5.8 MG/DL (2.5-4.9); POTASSIUM SERUM 4.3 MMOL/L (3.5-5.1)
[2023-09-27 08:00] VITALS: BP 180/100; TEMP 99; O2SAT 96
[2023-09-27] MEDS: HEPARIN 1,000UNITS/ML 10ML VIAL (FOR RADIOLOGY & DIALYSIS ONLY) XX SCH (11:52)
[2023-09-27 13:21] VITALS: BP 142/84; TEMP 98.8; O2SAT 98
[2023-09-27] MEDS: oxyCODONE 5MG TAB PO PRN (13:49)
[2023-09-27 16:00] VITALS: BP 146/78; TEMP 98.8; O2SAT 99
[2023-09-27 20:10] VITALS: BP 188/86; TEMP 99; O2SAT 98
[2023-09-28] VITALS (7 sets, daily range): BP systolic 142–198; BP diastolic 76–108; TEMP 98.1–99.3; O2SAT 94–99
[2023-09-28] MEDS: amLODIPine 5 MG TAB PO ONE (00:49)
[2023-09-28 08:15] LABS: BASO # 0.1 10^3/uL (0.0-0.2); BASO % 1.2 % (0.0-1.0); HEMATOCRIT 26.4 % (42.0-52.0); HEMOGLOBIN 8.5 g/dl (13.5-17.5); LYMPH # 1.7 10^3/uL (1.5-5.0); LYMPH % 28.1 % (24.0-44.0); MEAN CORPUSCULAR HEMOGLOBIN 26.7 pg (27.0-33.0); MEAN CORPUSCULAR HGB CONC 32.2 g/dl (32.0-36.5); MONO # 0.5 10^3/uL (0.0-0.8); MONO % 8.5 % (2.0-8.0); NEUTROPHILS # 3.7 10^3/uL (1.5-8.5); PLATELET COUNT, AUTOMATED 292 10^3/uL (150-450); RED BLOOD COUNT 3.18 10^6/uL (4.30-6.10)
[2023-09-28 08:45] LABS: C REACTIVE PROTEIN QUANTITATIV 3.4 MG/DL (<1.0)
[2023-09-28 08:47] LABS: ALBUMIN 2.7 G/DL (3.2-5.2); CALCIUM LEVEL 10.3 MG/DL (8.5-10.1); GLOMERULAR FILTRATION RATE 13.6 (>60); PHOSPHORUS LEVEL 5.2 MG/DL (2.5-4.9); POTASSIUM SERUM 3.9 MMOL/L (3.5-5.1)
[2023-09-28 09:29] LABS: VANCOMYCIN RANDOM 24.4 UG/ML
[2023-09-28] MEDS: oxyCODONE 5MG TAB PO PRN (16:49)
[2023-09-28] MEDS: CARVedilol 12.5 MG TAB PO SCH (20:24)
[2023-09-29 00:10] VITALS: BP 158/86; TEMP 99; O2SAT 98
[2023-09-29 04:00] VITALS: BP 176/96; TEMP 99.1; O2SAT 97
[2023-09-29 06:47] LABS: BASO # 0.1 10^3/uL (0.0-0.2); BASO % 1.2 % (0.0-1.0); HEMATOCRIT 25.4 % (42.0-52.0); HEMOGLOBIN 8.1 g/dl (13.5-17.5); LYMPH # 1.6 10^3/uL (1.5-5.0); LYMPH % 27.1 % (24.0-44.0); MEAN CORPUSCULAR HEMOGLOBIN 26.6 pg (27.0-33.0); MEAN CORPUSCULAR HGB CONC 31.9 g/dl (32.0-36.5); MEAN CORPUSCULAR VOLUME 83.3 fl (80.0-96.0); MONO # 0.6 10^3/uL (0.0-0.8); MONO % 10.2 % (2.0-8.0); NEUTROPHILS # 3.5 10^3/uL (1.5-8.5); NEUTROPHILS % 61.3 % (36.0-66.0); PLATELET COUNT, AUTOMATED 272 10^3/uL (150-450); RED BLOOD COUNT 3.05 10^6/uL (4.30-6.10); WHITE BLOOD COUNT 5.8 10^3/uL (4.0-10.0)
[2023-09-29 07:21] LABS: C REACTIVE PROTEIN QUANTITATIV 2.6 MG/DL (<1.0)
[2023-09-29 07:23] LABS: ALBUMIN 2.5 G/DL (3.2-5.2); CREATININE FOR GFR 6.69 MG/DL (0.70-1.30); GLOMERULAR FILTRATION RATE 9.7 (>60); PHOSPHORUS LEVEL 5.9 MG/DL (2.5-4.9); POTASSIUM SERUM 3.9 MMOL/L (3.5-5.1)
[2023-09-29 08:00] VITALS: BP 178/98; TEMP 98; O2SAT 96
[2023-09-29] MEDS: BISACODYL 10MG SUPP PR SCH (09:00)
[2023-09-29] MEDS: N ACETYL CYSTEINE PO SCH (09:03)
[2023-09-29 09:51] LABS: ERYTHROCYTE SEDIMENTATION RATE 43 mm/hr (0-15)
[2023-09-29 09:59] LABS: PROCALCITONIN 1.72 ng/ml
[2023-09-29 12:00] VITALS: BP 170/110; TEMP 99.3; O2SAT 99
[2023-09-29] MEDS: MIRALAX *UNIT DOSE* 17GM PACKET PO SCH (12:03)
[2023-09-29] MEDS: SENOKOT S TAB PO SCH (12:04)
[2023-09-29] MEDS: METHYLNALTREXONE BROMIDE 12MG/0.6ML VIAL (RELISTOR) SC ONE (14:08)
[2023-09-29 16:00] VITALS: BP 186/90; TEMP 99; O2SAT 99
[2023-09-29] MEDS: LACTULOSE 20GM/30ML SYRUP UDC PO SCH (17:04)
[2023-09-29 21:29] VITALS: BP 157/87; TEMP 99.1; O2SAT 98
[2023-09-30] VITALS: BP 148/89; TEMP 98.8; O2SAT 96
[2023-09-30 04:00] VITALS: BP 148/85; TEMP 99.1; O2SAT 94
[2023-09-30] MEDS ORDERED: HEPARIN 1,000UNITS/ML 10ML VIAL (FOR RADIOLOGY & DIALYSIS ONLY) IV PRN (06:00)
[2023-09-30] MEDS ORDERED: SODIUM CHLORIDE 0.9% 1000ML IV PRN (06:00)
[2023-09-30 07:57] VITALS: BP 160/82; TEMP 99; O2SAT 96
[2023-09-30] MEDS: HEPARIN 1,000UNITS/ML 10ML VIAL (FOR RADIOLOGY & DIALYSIS ONLY) XX SCH (08:14)
[2023-09-30 16:55] VITALS: BP 192/98; TEMP 99.3; O2SAT 99
[2023-09-30 20:00] VITALS: BP 170/90; TEMP 99; O2SAT 97
[2023-09-30 23:37] VITALS: BP 142/78
[2023-10-01 04:00] VITALS: BP 174/98; TEMP 99; O2SAT 98
[2023-10-01 06:09] VITALS: BP 178/96
[2023-10-01 07:09] LABS: CALCIUM LEVEL 10.5 MG/DL (8.5-10.1); CREATININE FOR GFR 5.98 MG/DL (0.70-1.30); POTASSIUM SERUM 4.2 MMOL/L (3.5-5.1)
[2023-10-01 12:00] VITALS: BP 194/90; TEMP 99; O2SAT 100
[2023-10-01 16:00] VITALS: BP 150/90; TEMP 98.2; O2SAT 99
[2023-10-01 20:18] VITALS: BP 162/82; TEMP 98.1; O2SAT 98
[2023-10-02] MEDS ORDERED: SODIUM CHLORIDE 0.9% 1000ML IV PRN (00:10)
[2023-10-02] MEDS ORDERED: HEPARIN 1,000UNITS/ML 10ML VIAL (FOR RADIOLOGY & DIALYSIS ONLY) IV PRN (00:10)
[2023-10-02 01:00] VITALS: BP 174/80; TEMP 99.3; O2SAT 95
[2023-10-02 04:12] VITALS: BP 178/100; TEMP 98.8; O2SAT 98
[2023-10-02 06:07] LABS: HEMATOCRIT 27.9 % (42.0-52.0); HEMOGLOBIN 9.1 g/dl (13.5-17.5); MEAN CORPUSCULAR HGB CONC 32.6 g/dl (32.0-36.5); MEAN CORPUSCULAR VOLUME 82.8 fl (80.0-96.0); PLATELET COUNT, AUTOMATED 218 10^3/uL (150-450); RED BLOOD COUNT 3.37 10^6/uL (4.30-6.10); WHITE BLOOD COUNT 5.3 10^3/uL (4.0-10.0)
[2023-10-02 06:36] LABS: C REACTIVE PROTEIN QUANTITATIV 2.1 MG/DL (<1.0)
[2023-10-02 06:44] VITALS: BP 160/84
[2023-10-02 06:57] LABS: ALBUMIN 2.5 G/DL (3.2-5.2); CREATININE FOR GFR 7.71 MG/DL (0.70-1.30); GLOMERULAR FILTRATION RATE 8.2 (>60); PHOSPHORUS LEVEL 5.9 MG/DL (2.5-4.9); POTASSIUM SERUM 4.7 MMOL/L (3.5-5.1)
[2023-10-02] MEDS: HEPARIN 1,000UNITS/ML 10ML VIAL (FOR RADIOLOGY & DIALYSIS ONLY) XX SCH (08:01)
[2023-10-02 12:20] VITALS: BP 176/94; TEMP 99.3; O2SAT 99
[2023-10-02 16:00] VITALS: BP 176/100; TEMP 99.5; O2SAT 96
[2023-10-02 20:00] VITALS: BP 150/91; TEMP 99; O2SAT 96
[2023-10-03 01:00] VITALS: BP 162/88; TEMP 98.9; O2SAT 97
[2023-10-03 04:00] VITALS: BP 152/91; TEMP 99.9; O2SAT 98
[2023-10-03 06:20] VITALS: BP 168/98
[2023-10-03 06:28] LABS: HEMATOCRIT 28.4 % (42.0-52.0); HEMOGLOBIN 9.1 g/dl (13.5-17.5); MEAN CORPUSCULAR HEMOGLOBIN 27.1 pg (27.0-33.0); MEAN CORPUSCULAR VOLUME 84.5 fl (80.0-96.0); PLATELET COUNT, AUTOMATED 194 10^3/uL (150-450); RED BLOOD COUNT 3.36 10^6/uL (4.30-6.10); WHITE BLOOD COUNT 6.4 10^3/uL (4.0-10.0)
[2023-10-03 07:23] LABS: ALBUMIN 2.7 G/DL (3.2-5.2); CALCIUM LEVEL 9.9 MG/DL (8.5-10.1); CREATININE FOR GFR 5.6 MG/DL (0.70-1.30); GLOMERULAR FILTRATION RATE 11.9 (>60); PHOSPHORUS LEVEL 5.1 MG/DL (2.5-4.9); POTASSIUM SERUM 4.8 MMOL/L (3.5-5.1)
[2023-10-03 12:00] VITALS: BP 190/118; TEMP 99.9; O2SAT 98
[2023-10-03 20:00] VITALS: BP 154/78; TEMP 97.9; O2SAT 99
[2023-10-03] MEDS: N ACETYL CYSTEINE PO SCH (20:57)
[2023-10-04 04:17] VITALS: BP 162/90; TEMP 98.1; O2SAT 98
[2023-10-04] MEDS ORDERED: HEPARIN 1,000UNITS/ML 10ML VIAL (FOR RADIOLOGY & DIALYSIS ONLY) IV PRN (06:00)
[2023-10-04] MEDS ORDERED: SODIUM CHLORIDE 0.9% 1000ML IV PRN (06:00)
[2023-10-04 06:02] LABS: HEMATOCRIT 30.6 % (42.0-52.0); HEMOGLOBIN 9.8 g/dl (13.5-17.5); MEAN CORPUSCULAR HEMOGLOBIN 27.1 pg (27.0-33.0); MEAN CORPUSCULAR VOLUME 84.5 fl (80.0-96.0); PLATELET COUNT, AUTOMATED 208 10^3/uL (150-450); RED BLOOD COUNT 3.62 10^6/uL (4.30-6.10); WHITE BLOOD COUNT 6.3 10^3/uL (4.0-10.0)
[2023-10-04 06:18] LABS: ALBUMIN 2.6 G/DL (3.2-5.2); CALCIUM LEVEL 10.1 MG/DL (8.5-10.1); CREATININE FOR GFR 6.93 MG/DL (0.70-1.30); GLOMERULAR FILTRATION RATE 9.3 (>60); PHOSPHORUS LEVEL 5.6 MG/DL (2.5-4.9)
[2023-10-04] MEDS: HEPARIN 1,000UNITS/ML 10ML VIAL (FOR RADIOLOGY & DIALYSIS ONLY) XX SCH (13:30)
[2023-10-04] MEDS: PANTOPRAZOLE 40MG TAB (PROTONIX) PO SCH (14:45)
[2023-10-04 14:50] VITALS: BP 177/104; TEMP 98.4; O2SAT 99
[2023-10-04 18:20] VITALS: BP 142/85; TEMP 98.8; O2SAT 99
[2023-10-04 20:07] VITALS: BP 182/90; TEMP 98.6; O2SAT 99
[2023-10-04] MEDS: PERCOCET 5MG/325MG TAB PO PRN (22:19)
[2023-10-04] MEDS: ACETAMINOPHEN *IV* 1,000 MG in IV 1 EA IV ONE (22:21)
[2023-10-04 22:24] VITALS: BP 160/84
[2023-10-05 06:01] VITALS: BP 158/98; TEMP 98.8; O2SAT 99
[2023-10-05] MEDS: MORPHINE 2 MG/ML 1ML VIAL IV ONE (06:10)
[2023-10-05 07:04] LABS: HEMATOCRIT 28.3 % (42.0-52.0); MEAN CORPUSCULAR HGB CONC 31.8 g/dl (32.0-36.5); PLATELET COUNT, AUTOMATED 191 10^3/uL (150-450); RED BLOOD COUNT 3.33 10^6/uL (4.30-6.10); WHITE BLOOD COUNT 5.5 10^3/uL (4.0-10.0)
[2023-10-05 07:22] LABS: ALBUMIN 2.6 G/DL (3.2-5.2); CALCIUM LEVEL 9.6 MG/DL (8.5-10.1); CREATININE FOR GFR 5.1 MG/DL (0.70-1.30); GLOMERULAR FILTRATION RATE 13.2 (>60); PHOSPHORUS LEVEL 5.7 MG/DL (2.5-4.9); POTASSIUM SERUM 4.8 MMOL/L (3.5-5.1)
[2023-10-05 12:46] VITALS: BP 164/80
[2023-10-05 17:58] VITALS: BP 160/80; TEMP 98.6; O2SAT 99
[2023-10-05 20:50] VITALS: BP 150/90; TEMP 98.1; O2SAT 98
[2023-10-05 23:50] VITALS: BP 172/98; TEMP 99; O2SAT 97
[2023-10-06 03:30] VITALS: BP 170/92; TEMP 98.8; O2SAT 99
[2023-10-06 06:31] LABS: HEMATOCRIT 27.1 % (42.0-52.0); HEMOGLOBIN 8.8 g/dl (13.5-17.5); MEAN CORPUSCULAR HEMOGLOBIN 27.6 pg (27.0-33.0); MEAN CORPUSCULAR HGB CONC 32.5 g/dl (32.0-36.5); PLATELET COUNT, AUTOMATED 180 10^3/uL (150-450); RED BLOOD COUNT 3.19 10^6/uL (4.30-6.10); WHITE BLOOD COUNT 5.4 10^3/uL (4.0-10.0)
[2023-10-06 07:04] LABS: ALBUMIN 2.5 G/DL (3.2-5.2); CALCIUM LEVEL 9.7 MG/DL (8.5-10.1); CREATININE FOR GFR 6.73 MG/DL (0.70-1.30); GLOMERULAR FILTRATION RATE 9.6 (>60); PHOSPHORUS LEVEL 8.2 MG/DL (2.5-4.9); POTASSIUM SERUM 6.1 MMOL/L (3.5-5.1)
[2023-10-06 08:00] VITALS: BP 160/120; TEMP 98.8; O2SAT 97
[2023-10-06 09:13] LABS: VANCOMYCIN RANDOM 20.7 UG/ML
[2023-10-06] MEDS ORDERED: **NOTE PATIENT COMMENT** MISC XX SCH (09:35)
[2023-10-06 12:00] VITALS: BP 210/120; TEMP 99; O2SAT 96
[2023-10-06 16:00] VITALS: BP 170/98; TEMP 98.8; O2SAT 97
[2023-10-06 19:50] VITALS: BP 150/90; TEMP 98.2; O2SAT 97
[2023-10-06] MEDS: N ACETYL CYSTEINE PO SCH (20:09)
[2023-10-07 00:20] VITALS: BP 178/98; TEMP 98.2; O2SAT 100
[2023-10-07 04:00] VITALS: BP 190/100; TEMP 98.6; O2SAT 98
[2023-10-07] MEDS ORDERED: HEPARIN 1,000UNITS/ML 10ML VIAL (FOR RADIOLOGY & DIALYSIS ONLY) XX SCH (06:00)
[2023-10-07] MEDS ORDERED: LIDOCAINE 1% SDV 5ML VIAL SC PRN (06:00)
[2023-10-07] MEDS ORDERED: SODIUM CHLORIDE 0.9% 1000ML IV PRN (06:00)
[2023-10-07 06:23] LABS: HEMATOCRIT 28.4 % (42.0-52.0); HEMOGLOBIN 9.3 g/dl (13.5-17.5); MEAN CORPUSCULAR HEMOGLOBIN 27.6 pg (27.0-33.0); MEAN CORPUSCULAR HGB CONC 32.7 g/dl (32.0-36.5); MEAN CORPUSCULAR VOLUME 84.3 fl (80.0-96.0); PLATELET COUNT, AUTOMATED 177 10^3/uL (150-450); RED BLOOD COUNT 3.37 10^6/uL (4.30-6.10); WHITE BLOOD COUNT 5.5 10^3/uL (4.0-10.0)
[2023-10-07 06:55] LABS: ALBUMIN 2.6 G/DL (3.2-5.2); CALCIUM LEVEL 9.7 MG/DL (8.5-10.1); CREATININE FOR GFR 7.93 MG/DL (0.70-1.30); PHOSPHORUS LEVEL 9.7 MG/DL (2.5-4.9); POTASSIUM SERUM 6.4 MMOL/L (3.5-5.1)
[2023-10-07 08:00] VITALS: BP 190/110; TEMP 98.6; O2SAT 97
[2023-10-07] MEDS: HEPARIN 1,000UNITS/ML 10ML VIAL (FOR RADIOLOGY & DIALYSIS ONLY) IV PRN (11:15)
[2023-10-07 12:00] VITALS: BP 199/104; TEMP 98.6; O2SAT 96
[2023-10-07] MEDS: N ACETYL CYSTEINE PO SCH (12:47)
[2023-10-07 16:48] VITALS: BP 182/98; TEMP 98.8; O2SAT 99
[2023-10-07 20:30] VITALS: BP 170/96; TEMP 99; O2SAT 98
[2023-10-08] VITALS (7 sets, daily range): BP systolic 154–190; BP diastolic 90–110; TEMP 97.6–99.5; O2SAT 94–99
[2023-10-08 06:35] LABS: HEMATOCRIT 30.2 % (42.0-52.0); HEMOGLOBIN 9.7 g/dl (13.5-17.5); MEAN CORPUSCULAR HEMOGLOBIN 27.2 pg (27.0-33.0); MEAN CORPUSCULAR HGB CONC 32.1 g/dl (32.0-36.5); MEAN CORPUSCULAR VOLUME 84.6 fl (80.0-96.0); PLATELET COUNT, AUTOMATED 176 10^3/uL (150-450); RED BLOOD COUNT 3.57 10^6/uL (4.30-6.10); WHITE BLOOD COUNT 7.7 10^3/uL (4.0-10.0)
[2023-10-08 07:28] LABS: ALBUMIN 2.9 G/DL (3.2-5.2); CALCIUM LEVEL 9.9 MG/DL (8.5-10.1); CREATININE FOR GFR 5.16 MG/DL (0.70-1.30); GLOMERULAR FILTRATION RATE 13.1 (>60); PHOSPHORUS LEVEL 7.3 MG/DL (2.5-4.9); POTASSIUM SERUM 5.7 MMOL/L (3.5-5.1)
[2023-10-09 04:42] VITALS: BP 174/99; TEMP 98.7; O2SAT 99
[2023-10-09 06:30] LABS: HEMOGLOBIN 9.4 g/dl (13.5-17.5); MEAN CORPUSCULAR HEMOGLOBIN 26.9 pg (27.0-33.0); MEAN CORPUSCULAR HGB CONC 31.3 g/dl (32.0-36.5); PLATELET COUNT, AUTOMATED 173 10^3/uL (150-450); RED BLOOD COUNT 3.49 10^6/uL (4.30-6.10); WHITE BLOOD COUNT 6.2 10^3/uL (4.0-10.0)
[2023-10-09 06:48] LABS: C REACTIVE PROTEIN QUANTITATIV 2.3 MG/DL (<1.0)
[2023-10-09 07:00] LABS: ALBUMIN 2.8 G/DL (3.2-5.2); CALCIUM LEVEL 9.9 MG/DL (8.5-10.1); CREATININE FOR GFR 6.39 MG/DL (0.70-1.30); GLOMERULAR FILTRATION RATE 10.2 (>60); PHOSPHORUS LEVEL 8.5 MG/DL (2.5-4.9); POTASSIUM SERUM 6.6 MMOL/L (3.5-5.1)
[2023-10-09] MEDS ORDERED: SODIUM CHLORIDE 0.9% 1000ML IV PRN (07:50)
[2023-10-09] MEDS ORDERED: LIDOCAINE 1% SDV 5ML VIAL SC PRN (07:50)
[2023-10-09] MEDS ORDERED: HEPARIN 1,000UNITS/ML 10ML VIAL (FOR RADIOLOGY & DIALYSIS ONLY) IV PRN (07:50)
[2023-10-09 08:00] VITALS: BP 195/112; TEMP 98.2; O2SAT 95
[2023-10-09] MEDS: HEPARIN 1,000UNITS/ML 10ML VIAL (FOR RADIOLOGY & DIALYSIS ONLY) XX SCH (11:22)
[2023-10-09 13:00] VITALS: BP 170/110; TEMP 98.8; O2SAT 97
[2023-10-09 16:00] VITALS: BP 164/109; TEMP 99.1; O2SAT 99
[2023-10-09 20:14] VITALS: BP 160/100; TEMP 99; O2SAT 98
[2023-10-10] VITALS (7 sets, daily range): BP systolic 160–180; BP diastolic 99–114; TEMP 98.2–99.1; O2SAT 95–99
[2023-10-10 06:10] LABS: HEMATOCRIT 28.1 % (42.0-52.0); HEMOGLOBIN 9.2 g/dl (13.5-17.5); MEAN CORPUSCULAR HGB CONC 32.7 g/dl (32.0-36.5); MEAN CORPUSCULAR VOLUME 85.4 fl (80.0-96.0); PLATELET COUNT, AUTOMATED 165 10^3/uL (150-450); RED BLOOD COUNT 3.29 10^6/uL (4.30-6.10)
[2023-10-10 06:32] LABS: ALBUMIN 2.4 G/DL (3.2-5.2); CALCIUM LEVEL 9.3 MG/DL (8.5-10.1); CREATININE FOR GFR 4.53 MG/DL (0.70-1.30); GLOMERULAR FILTRATION RATE 15.2 (>60); PHOSPHORUS LEVEL 5.9 MG/DL (2.5-4.9); POTASSIUM SERUM 5.1 MMOL/L (3.5-5.1)
[2023-10-11 00:03] VITALS: BP 173/108; TEMP 99; O2SAT 97
[2023-10-11 04:15] VITALS: BP 179/108; TEMP 98.2; O2SAT 97
[2023-10-11] MEDS ORDERED: SODIUM CHLORIDE 0.9% 1000ML IV PRN (06:00)
[2023-10-11] MEDS ORDERED: HEPARIN 1,000UNITS/ML 10ML VIAL (FOR RADIOLOGY & DIALYSIS ONLY) IV PRN (06:00)
[2023-10-11] MEDS ORDERED: LIDOCAINE 1% SDV 5ML VIAL SC PRN (06:00)
[2023-10-11 06:01] LABS: HEMATOCRIT 29.7 % (42.0-52.0); HEMOGLOBIN 9.7 g/dl (13.5-17.5); MEAN CORPUSCULAR HEMOGLOBIN 27.6 pg (27.0-33.0); MEAN CORPUSCULAR HGB CONC 32.7 g/dl (32.0-36.5); MEAN CORPUSCULAR VOLUME 84.4 fl (80.0-96.0); PLATELET COUNT, AUTOMATED 201 10^3/uL (150-450); RED BLOOD COUNT 3.52 10^6/uL (4.30-6.10); WHITE BLOOD COUNT 6.6 10^3/uL (4.0-10.0)
[2023-10-11 06:30] LABS: ALBUMIN 2.6 G/DL (3.2-5.2); CALCIUM LEVEL 9.7 MG/DL (8.5-10.1); CREATININE FOR GFR 5.97 MG/DL (0.70-1.30); PHOSPHORUS LEVEL 7.6 MG/DL (2.5-4.9); POTASSIUM SERUM 6.4 MMOL/L (3.5-5.1)
[2023-10-11 07:37] LABS: VANCOMYCIN RANDOM 19.1 UG/ML
[2023-10-11] MEDS: HEPARIN 1,000UNITS/ML 10ML VIAL (FOR RADIOLOGY & DIALYSIS ONLY) XX SCH (08:37)
[2023-10-11 14:03] VITALS: BP 188/126; TEMP 98.6; O2SAT 96
[2023-10-11 16:00] VITALS: BP 192/123; TEMP 98.8; O2SAT 95
[2023-10-11 20:00] VITALS: BP 164/102; TEMP 98.8; O2SAT 96
[2023-10-12] VITALS: BP 159/99; TEMP 99; O2SAT 98
[2023-10-12 04:00] VITALS: BP 160/98; TEMP 99.3; O2SAT 94
[2023-10-12] MEDS ORDERED: SODIUM CHLORIDE 0.9% 1000ML IV PRN (06:00)
[2023-10-12] MEDS ORDERED: HEPARIN 1,000UNITS/ML 10ML VIAL (FOR RADIOLOGY & DIALYSIS ONLY) IV PRN (06:00)
[2023-10-12 06:19] LABS: MEAN CORPUSCULAR HGB CONC 32.1 g/dl (32.0-36.5); MEAN CORPUSCULAR VOLUME 87.2 fl (80.0-96.0); PLATELET COUNT, AUTOMATED 194 10^3/uL (150-450); RED BLOOD COUNT 3.21 10^6/uL (4.30-6.10); WHITE BLOOD COUNT 5.3 10^3/uL (4.0-10.0)
[2023-10-12 06:53] LABS: ALBUMIN 2.4 G/DL (3.2-5.2); CREATININE FOR GFR 4.39 MG/DL (0.70-1.30); GLOMERULAR FILTRATION RATE 15.7 (>60); PHOSPHORUS LEVEL 6.6 MG/DL (2.5-4.9)
[2023-10-12 08:00] VITALS: BP 165/100; TEMP 98.8; O2SAT 96
[2023-10-12] MEDS: HEPARIN 1,000UNITS/ML 10ML VIAL (FOR RADIOLOGY & DIALYSIS ONLY) XX SCH (08:39)
[2023-10-12 12:00] VITALS: BP 171/103; TEMP 98.8; O2SAT 95
[2023-10-12 16:00] VITALS: BP 217/127; TEMP 99.3; O2SAT 92
[2023-10-12 20:00] VITALS: BP 165/93; TEMP 98.8; O2SAT 95
[2023-10-12] MEDS: LIDOCAINE 5% (LIDODERM) PATCH TD PRN (21:42)
[2023-10-13] VITALS: BP 155/89; TEMP 98.8; O2SAT 97
[2023-10-13 04:00] VITALS: BP 160/97; TEMP 98.4; O2SAT 98
[2023-10-13 06:30] LABS: HEMATOCRIT 30.5 % (42.0-52.0); HEMOGLOBIN 9.6 g/dl (13.5-17.5); MEAN CORPUSCULAR HEMOGLOBIN 27.5 pg (27.0-33.0); MEAN CORPUSCULAR HGB CONC 31.5 g/dl (32.0-36.5); MEAN CORPUSCULAR VOLUME 87.4 fl (80.0-96.0); PLATELET COUNT, AUTOMATED 232 10^3/uL (150-450); RED BLOOD COUNT 3.49 10^6/uL (4.30-6.10); WHITE BLOOD COUNT 6.5 10^3/uL (4.0-10.0)
[2023-10-13 06:59] LABS: ALBUMIN 2.9 G/DL (3.2-5.2); CALCIUM LEVEL 10.1 MG/DL (8.5-10.1); CREATININE FOR GFR 4.27 MG/DL (0.70-1.30); GLOMERULAR FILTRATION RATE 16.3 (>60); POTASSIUM SERUM 5.5 MMOL/L (3.5-5.1)
[2023-10-13 12:36] VITALS: BP 176/104; TEMP 98.6; O2SAT 97
[2023-10-13] MEDS: N ACETYL CYSTEINE PO SCH (20:52)
[2023-10-13 20:57] VITALS: BP 149/94
[2023-10-13 21:25] VITALS: TEMP 97.9; O2SAT 97
[2023-10-14 01:00] VITALS: BP 155/94; TEMP 97.5; O2SAT 97
[2023-10-14 05:45] VITALS: BP 180/100; TEMP 98.6; O2SAT 98
[2023-10-14] MEDS ORDERED: HEPARIN 1,000UNITS/ML 10ML VIAL (FOR RADIOLOGY & DIALYSIS ONLY) IV PRN (06:00)
[2023-10-14] MEDS ORDERED: SODIUM CHLORIDE 0.9% 1000ML IV PRN (06:00)
[2023-10-14 07:06] LABS: HEMATOCRIT 28.3 % (42.0-52.0); MEAN CORPUSCULAR HEMOGLOBIN 27.6 pg (27.0-33.0); MEAN CORPUSCULAR HGB CONC 31.8 g/dl (32.0-36.5); MEAN CORPUSCULAR VOLUME 86.8 fl (80.0-96.0); PLATELET COUNT, AUTOMATED 228 10^3/uL (150-450); RED BLOOD COUNT 3.26 10^6/uL (4.30-6.10); WHITE BLOOD COUNT 6.1 10^3/uL (4.0-10.0)
[2023-10-14 07:27] LABS: VANCOMYCIN RANDOM 18.4 UG/ML
[2023-10-14 08:00] VITALS: BP 165/95; TEMP 98.4; O2SAT 98
[2023-10-14 08:09] LABS: ALBUMIN 2.8 G/DL (3.2-5.2); CALCIUM LEVEL 9.5 MG/DL (8.5-10.1); CREATININE FOR GFR 5.64 MG/DL (0.70-1.30); GLOMERULAR FILTRATION RATE 11.8 (>60); PHOSPHORUS LEVEL 8.3 MG/DL (2.5-4.9); POTASSIUM SERUM 6.4 MMOL/L (3.5-5.1)
[2023-10-14] MEDS: HEPARIN 1,000UNITS/ML 10ML VIAL (FOR RADIOLOGY & DIALYSIS ONLY) XX SCH (08:43)
[2023-10-14 16:00] VITALS: BP 182/104; TEMP 99.1; O2SAT 99
[2023-10-14] MEDS: **hydrALAZINE** 50 MG TAB PO ONE ×2 (16:55→18:56)
[2023-10-14] MEDS ORDERED: **hydrALAZINE** 50 MG TAB PO ONE (18:45)
[2023-10-14 20:45] VITALS: BP 167/106; TEMP 98.1; O2SAT 98
[2023-10-14 22:53] VITALS: BP 160/84; O2SAT 98
[2023-10-15 03:18] VITALS: BP 164/84; TEMP 98.4; O2SAT 98
[2023-10-15 05:51] VITALS: BP 170/88
[2023-10-15] MEDS ORDERED: SODIUM CHLORIDE 0.9% 1000ML IV PRN (06:00)
[2023-10-15] MEDS ORDERED: HEPARIN 1,000UNITS/ML 10ML VIAL (FOR RADIOLOGY & DIALYSIS ONLY) IV PRN (06:00)
[2023-10-15 06:05] LABS: HEMATOCRIT 27.6 % (42.0-52.0); HEMOGLOBIN 8.8 g/dl (13.5-17.5); MEAN CORPUSCULAR HEMOGLOBIN 27.9 pg (27.0-33.0); MEAN CORPUSCULAR HGB CONC 31.9 g/dl (32.0-36.5); MEAN CORPUSCULAR VOLUME 87.6 fl (80.0-96.0); PLATELET COUNT, AUTOMATED 230 10^3/uL (150-450); RED BLOOD COUNT 3.15 10^6/uL (4.30-6.10); WHITE BLOOD COUNT 4.5 10^3/uL (4.0-10.0)
[2023-10-15 06:19] LABS: ALBUMIN 2.8 G/DL (3.2-5.2); CALCIUM LEVEL 9.3 MG/DL (8.5-10.1); CREATININE FOR GFR 4.29 MG/DL (0.70-1.30); GLOMERULAR FILTRATION RATE 16.2 (>60); PHOSPHORUS LEVEL 7.3 MG/DL (2.5-4.9); POTASSIUM SERUM 5.9 MMOL/L (3.5-5.1)
[2023-10-15] MEDS: HEPARIN 1,000UNITS/ML 10ML VIAL (FOR RADIOLOGY & DIALYSIS ONLY) XX SCH (08:52)
[2023-10-15 13:30] VITALS: BP 183/111
[2023-10-15 16:01] VITALS: BP 170/96
[2023-10-15 19:35] VITALS: BP 158/78; TEMP 98.5; O2SAT 98
[2023-10-15 23:24] VITALS: BP 182/90; TEMP 98.6; O2SAT 98
[2023-10-16 04:00] VITALS: BP 168/88; TEMP 98.1; O2SAT 98
[2023-10-16] MEDS ORDERED: SODIUM CHLORIDE 0.9% 1000ML IV PRN (06:00)
[2023-10-16] MEDS ORDERED: HEPARIN 1,000UNITS/ML 10ML VIAL (FOR RADIOLOGY & DIALYSIS ONLY) IV PRN (06:00)
[2023-10-16 07:54] LABS: CALCIUM LEVEL 9.6 MG/DL (8.5-10.1); CREATININE FOR GFR 3.85 MG/DL (0.70-1.30); GLOMERULAR FILTRATION RATE 18.3 (>60); MAGNESIUM LEVEL 1.8 MG/DL (1.8-2.4); POTASSIUM SERUM 5.8 MMOL/L (3.5-5.1)
[2023-10-16] MEDS: HEPARIN 1,000UNITS/ML 10ML VIAL (FOR RADIOLOGY & DIALYSIS ONLY) XX SCH (08:40)
[2023-10-16 20:44] VITALS: BP 140/91; TEMP 98.6; O2SAT 98
[2023-10-17] VITALS: BP 168/88; TEMP 99.1; O2SAT 98
[2023-10-17] MEDS ORDERED: HEPARIN 1,000UNITS/ML 10ML VIAL (FOR RADIOLOGY & DIALYSIS ONLY) XX SCH (00:25)
[2023-10-17] MEDS ORDERED: SODIUM CHLORIDE 0.9% 1000ML IV PRN (00:25)
[2023-10-17 05:00] VITALS: BP 166/88; TEMP 98.9; O2SAT 97
[2023-10-17 06:25] LABS: BASO # 0.1 10^3/uL (0.0-0.2); BASO % 1.1 % (0.0-1.0); HEMATOCRIT 29.1 % (42.0-52.0); HEMOGLOBIN 8.8 g/dl (13.5-17.5); LYMPH # 1.1 10^3/uL (1.5-5.0); LYMPH % 17.9 % (24.0-44.0); MEAN CORPUSCULAR HEMOGLOBIN 27.7 pg (27.0-33.0); MEAN CORPUSCULAR HGB CONC 30.2 g/dl (32.0-36.5); MEAN CORPUSCULAR VOLUME 91.5 fl (80.0-96.0); MONO # 0.8 10^3/uL (0.0-0.8); MONO % 13.4 % (2.0-8.0); NEUTROPHILS # 4.2 10^3/uL (1.5-8.5); NEUTROPHILS % 67.4 % (36.0-66.0); PLATELET COUNT, AUTOMATED 215 10^3/uL (150-450); RED BLOOD COUNT 3.18 10^6/uL (4.30-6.10); WHITE BLOOD COUNT 6.3 10^3/uL (4.0-10.0)
[2023-10-17 06:46] LABS: CALCIUM LEVEL 9.3 MG/DL (8.5-10.1); CREATININE FOR GFR 3.87 MG/DL (0.70-1.30); GLOMERULAR FILTRATION RATE 18.2 (>60); MAGNESIUM LEVEL 1.8 MG/DL (1.8-2.4); POTASSIUM SERUM 5.2 MMOL/L (3.5-5.1)
[2023-10-17 07:50] LABS: VANCOMYCIN RANDOM 21.9 UG/ML
[2023-10-17 08:00] VITALS: BP 179/116; TEMP 98.8; O2SAT 98
[2023-10-17] MEDS: HEPARIN 1,000UNITS/ML 10ML VIAL (FOR RADIOLOGY & DIALYSIS ONLY) IV PRN (10:38)
[2023-10-17 13:30] VITALS: BP 204/110; TEMP 98.2; O2SAT 99
[2023-10-17 16:43] VITALS: BP 178/108; TEMP 98.8; O2SAT 98
[2023-10-17 20:00] VITALS: BP 200/100; TEMP 99; O2SAT 94
[2023-10-18] VITALS (7 sets, daily range): BP systolic 149–178; BP diastolic 78–100; TEMP 97.8–99.7; O2SAT 96–98
[2023-10-18] MEDS ORDERED: SODIUM CHLORIDE 0.9% 1000ML IV PRN (06:00)
[2023-10-18] MEDS ORDERED: HEPARIN 1,000UNITS/ML 10ML VIAL (FOR RADIOLOGY & DIALYSIS ONLY) XX SCH (06:00)
[2023-10-18 06:30] LABS: CALCIUM LEVEL 9.7 MG/DL (8.5-10.1); CREATININE FOR GFR 3.98 MG/DL (0.70-1.30); GLOMERULAR FILTRATION RATE 17.6 (>60); MAGNESIUM LEVEL 1.8 MG/DL (1.8-2.4); POTASSIUM SERUM 5.1 MMOL/L (3.5-5.1)
[2023-10-18] MEDS: HEPARIN 1,000UNITS/ML 10ML VIAL (FOR RADIOLOGY & DIALYSIS ONLY) IV PRN (10:45)
[2023-10-19] VITALS: BP 180/90; TEMP 99; O2SAT 96
[2023-10-19 05:34] VITALS: BP 178/100; TEMP 98.9; O2SAT 98
[2023-10-19] MEDS ORDERED: HEPARIN 1,000UNITS/ML 10ML VIAL (FOR RADIOLOGY & DIALYSIS ONLY) IV PRN (06:00)
[2023-10-19] MEDS ORDERED: LIDOCAINE 1% SDV 5ML VIAL SC PRN (06:00)
[2023-10-19] MEDS ORDERED: SODIUM CHLORIDE 0.9% 1000ML IV PRN (06:00)
[2023-10-19 08:33] LABS: VANCOMYCIN RANDOM 19.1 UG/ML
[2023-10-19 08:36] LABS: CALCIUM LEVEL 10.1 MG/DL (8.5-10.1); CREATININE FOR GFR 4.33 MG/DL (0.70-1.30); MAGNESIUM LEVEL 2.2 MG/DL (1.8-2.4); POTASSIUM SERUM 5.4 MMOL/L (3.5-5.1)
[2023-10-19] MEDS: HEPARIN 1,000UNITS/ML 10ML VIAL (FOR RADIOLOGY & DIALYSIS ONLY) XX SCH (11:30)
[2023-10-19 12:00] VITALS: BP 149/94; TEMP 97.9; O2SAT 99
[2023-10-19 17:29] VITALS: BP 154/90
[2023-10-19 20:29] VITALS: BP 152/91; TEMP 98.8; O2SAT 95
[2023-10-19 23:35] VITALS: BP 154/91; TEMP 98.8; O2SAT 98
[2023-10-20 03:54] VITALS: BP 158/96; TEMP 99; O2SAT 97
[2023-10-20 06:18] VITALS: BP 178/98
[2023-10-20 06:58] LABS: VANCOMYCIN LEVEL TROUGH 23.3 UG/ML (10.0-20.0)
[2023-10-20 06:59] LABS: CALCIUM LEVEL 9.8 MG/DL (8.5-10.1); CREATININE FOR GFR 4.29 MG/DL (0.70-1.30); GLOMERULAR FILTRATION RATE 16.2 (>60); POTASSIUM SERUM 5.7 MMOL/L (3.5-5.1)
[2023-10-20 08:00] VITALS: BP 170/105; TEMP 98.1; O2SAT 98
[2023-10-20 08:34] VITALS: BP 170/105
[2023-10-20] MEDS ORDERED: SENN-52 PO (08:34)
[2023-10-20] MEDS ORDERED: CORE25TA PO (08:34)
== END 2023-10-20 10:11 | disposition home or self-care (01) | DRG 853 ==
LOC: M ED 13:56 → EDBD 13:56 → M ED INP 16:39 → M MSPAV 09-21 15:16
PROVIDERS: ADMIT Internal Medicine; ATTEND Internal Medicine Nephrology
PROC: 30233N1 Transfusion of Nonautologous Red Blood Cells into Peripheral Vein, Percutaneous Approach (ICD-10-PCS; 2023-09-21)
PROC: 5A1D70Z Performance of Urinary Filtration, Intermittent, Less than 6 Hours Per Day (ICD-10-PCS; 2023-09-23)
PROC: B246ZZZ Ultrasonography of Right and Left Heart (ICD-10-PCS; 2023-09-26)
PROC: 07BJ3ZX Excision of Left Inguinal Lymphatic, Percutaneous Approach, Diagnostic (ICD-10-PCS; principal; 2023-10-10 12:00)
DX: A41.9 Sepsis, unspecified organism (principal); N18.6 End stage renal disease; J18.9 Pneumonia, unspecified organism; I33.0 Acute and subacute infective endocarditis; I12.0 Hypertensive chronic kidney disease with stage 5 chronic kidney disease or end stage renal disease; E87.1 Hypo-osmolality and hyponatremia; Z94.0 Kidney transplant status; E27.1 Primary adrenocortical insufficiency; N43.3 Hydrocele, unspecified; I08.0 Rheumatic disorders of both mitral and aortic valves; F41.9 Anxiety disorder, unspecified; F42.4 Excoriation (skin-picking) disorder; K59.00 Constipation, unspecified; E83.39 Other disorders of phosphorus metabolism; R59.0 Localized enlarged lymph nodes; G40.909 Epilepsy, unspecified, not intractable, without status epilepticus; E83.52 Hypercalcemia; D63.1 Anemia in chronic kidney disease; F39 Unspecified mood [affective] disorder; E53.8 Deficiency of other specified B group vitamins; M54.9 Dorsalgia, unspecified; G89.29 Other chronic pain; G62.9 Polyneuropathy, unspecified; Z87.820 Personal history of traumatic brain injury; Z91.52 Personal history of nonsuicidal self-harm; Z99.2 Dependence on renal dialysis; Z79.899 Other long term (current) drug therapy; Z11.52 Encounter for screening for COVID-19; Z88.8 Allergy status to other drugs, medicaments and biological substances; E87.5 Hyperkalemia; S20.212A Contusion of left front wall of thorax, initial encounter; W19.XXXA Unspecified fall, initial encounter; Y92.231 Patient bathroom in hospital as the place of occurrence of the external cause

== ENCOUNTER 2023-11-03 04:32 | Inpatient (IN) | payer MEDICARE, MEDICAID ==
[~2023-11-03] VITALS: Ht 182.9 cm; Wt 84.0 kg
[~2023-11-03 04:32] MED LIST changes: +CORE25TA PO; +N-ACCAP PO; +SENN-52 PO
[2023-11-03 06:11] LABS: BASO % 0.6 % (0.0-1.0); EOS # 0.1 10^3/uL (0.0-0.5); EOS % 0.9 % (0.0-3.0); HEMATOCRIT 27.2 % (42.0-52.0); HEMOGLOBIN 9.1 g/dl (13.5-17.5); LYMPH # 1.2 10^3/uL (1.5-5.0); LYMPH % 17.7 % (24.0-44.0); MEAN CORPUSCULAR HEMOGLOBIN 28.2 pg (27.0-33.0); MEAN CORPUSCULAR HGB CONC 33.5 g/dl (32.0-36.5); MEAN CORPUSCULAR VOLUME 84.2 fl (80.0-96.0); MONO # 0.5 10^3/uL (0.0-0.8); NEUTROPHILS # 5.1 10^3/uL (1.5-8.5); NEUTROPHILS % 73.5 % (36.0-66.0); PLATELET COUNT, AUTOMATED 239 10^3/uL (150-450); RED BLOOD COUNT 3.23 10^6/uL (4.30-6.10)
[2023-11-03 06:35] LABS: CK-MB VALUE MASS 1.2 NG/ML (<3.6)
[2023-11-03 06:36] LABS: MB/CK RELATIVE INDEX 1.36 (< OR =4)
[2023-11-03 06:37] LABS: BILIRUBIN,DIRECT 0.2 MG/DL (<0.4); BILIRUBIN,TOTAL 0.4 MG/DL (0.3-1.2); CREATININE FOR GFR 7.25 MG/DL (0.70-1.30); GLOMERULAR FILTRATION RATE 8.8 (>60); TOTAL PROTEIN 6.1 G/DL (5.7-8.2)
[2023-11-03 06:55] LABS: VENOUS BASE EXCESS -1.4 (-2.0-2.0); VENOUS HCO3 22.1 MMOL/L (23.0-27.0); VENOUS O2 SATURATION 95.4 % (60.0-80.0); VENOUS PARTIAL PRESSURE CO2 32.7 mmHg (38.0-50.0); VENOUS PARTIAL PRESSURE O2 86.8 mmHg (30.0-50.0); VENOUS PH 7.448 UNITS (7.330-7.430); VENOUS STANDARD HCO3 23.3 MMOL/L; VENOUS TOTAL CO2 23.1 MMOL/L (24.0-28.0)
[2023-11-03] MEDS: hydrALAZINE 20MG/ML 1ML VIAL IV ONE ×2 (07:04→09:11)
[2023-11-03 07:09] LABS: PHOSPHORUS LEVEL 9.3 MG/DL (2.5-4.9)
[2023-11-03] MEDS: ACETAMINOPHEN *IV* 1,000 MG in IV 1 EA IV ONE ×2 (07:48→18:17)
[2023-11-03 07:51] LABS: CK-MB VALUE MASS < 1.0 NG/ML (<3.6)
[2023-11-03 07:53] LABS: CPK CREATINE PHOSPHOKINASE 94 U/L (46-171); MB/CK RELATIVE INDEX 1.06 (< OR =4)
[2023-11-03] MEDS: SENOKOT S TAB PO SCH (09:00)
[2023-11-03] MEDS: MORPHINE 4 MG/ML 1ML VIAL IV ONE (09:12)
[2023-11-03] MEDS ORDERED: CARV25TA PO (10:15)
[2023-11-03] MEDS ORDERED: SENN-23 PO (10:15)
[2023-11-03] MEDS ORDERED: HOME MED LIST COMPLETE! XX SCH (10:20)
[2023-11-03] MEDS: SOD POLYSTYRENE SULFONATE SUSP 15GM 60ML UD PO ONE (13:00)
[2023-11-03] MEDS: **hydrALAZINE** 50 MG TAB PO SCH (13:07)
[2023-11-03] MEDS: CARVedilol 12.5 MG TAB PO SCH (13:07)
[2023-11-03] MEDS: NITROGLYCERIN 2% OINT 1 GM *U/D* PKT TOP ONE (13:09)
[2023-11-03] MEDS: PANTOPRAZOLE 40MG VIAL IV ONE (14:18)
[2023-11-03] MEDS: VITAMIN D 1,000 INTERNATIONAL UNITS TABLET PO SCH (14:19)
[2023-11-03] MEDS: CYANOCOBALAMIN 500 MCG TAB PO SCH (14:19)
[2023-11-03] MEDS: NIFEdipine 30MG XL TAB PO SCH (14:22)
[2023-11-03] MEDS: KETOROLAC 30 MG/ML 1ML VIAL IV ONE (14:23)
[2023-11-03 14:49] VITALS: BP 170/102; TEMP 97.4; O2SAT 94
[2023-11-03 17:00] VITALS: BP 193/100; TEMP 97; O2SAT 94
[2023-11-03] MEDS: DICYCLOMINE INJ 20MG/2ML IM ONE (17:02)
[2023-11-03] MEDS: cloNIDine 0.1MG TABLET PO SCH (17:02)
[2023-11-03] MEDS: MORPHINE 2 MG/ML 1ML VIAL IV PRN (18:43)
[2023-11-03 18:46] VITALS: BP 158/80
[2023-11-03 20:42] VITALS: BP 160/80; TEMP 97.6; O2SAT 96
[2023-11-04 00:10] VITALS: BP 166/100; TEMP 98.1; O2SAT 94
[2023-11-04 05:18] VITALS: BP 137/68; TEMP 98.4; O2SAT 96
[2023-11-04] MEDS ORDERED: SODIUM CHLORIDE 0.9% 1000ML IV PRN (08:00)
[2023-11-04] MEDS ORDERED: HEPARIN 1,000UNITS/ML 10ML VIAL (FOR RADIOLOGY & DIALYSIS ONLY) IV PRN (08:00)
[2023-11-04] MEDS ORDERED: LIDOCAINE 1% SDV 5ML VIAL SC PRN (08:00)
[2023-11-04] MEDS: HEPARIN 1,000UNITS/ML 10ML VIAL (FOR RADIOLOGY & DIALYSIS ONLY) XX SCH (09:21)
[2023-11-04 09:26] LABS: BASO % 0.6 % (0.0-1.0); EOS % 0.2 % (0.0-3.0); HEMATOCRIT 28.2 % (42.0-52.0); HEMOGLOBIN 9.5 g/dl (13.5-17.5); LYMPH # 0.9 10^3/uL (1.5-5.0); LYMPH % 19.1 % (24.0-44.0); MEAN CORPUSCULAR HEMOGLOBIN 28.3 pg (27.0-33.0); MEAN CORPUSCULAR HGB CONC 33.7 g/dl (32.0-36.5); MEAN CORPUSCULAR VOLUME 83.9 fl (80.0-96.0); MONO # 0.5 10^3/uL (0.0-0.8); MONO % 9.3 % (2.0-8.0); NEUTROPHILS # 3.4 10^3/uL (1.5-8.5); NEUTROPHILS % 70.6 % (36.0-66.0); PLATELET COUNT, AUTOMATED 223 10^3/uL (150-450); RED BLOOD COUNT 3.36 10^6/uL (4.30-6.10); WHITE BLOOD COUNT 4.9 10^3/uL (4.0-10.0)
[2023-11-04 10:20] LABS: CALCIUM LEVEL 9.5 MG/DL (8.5-10.1); CREATININE FOR GFR 8.81 MG/DL (0.70-1.30); POTASSIUM SERUM 6.3 MMOL/L (3.5-5.1); VANCOMYCIN RANDOM 19.2 UG/ML
[2023-11-04 14:00] VITALS: BP 179/106; TEMP 98.6; O2SAT 98
[2023-11-04] MEDS: FLUBLOK(EGGFREE) TRIVAL(24-25) VACCINE PF 0.5ML SYRINGE 18YRS & OLDER IM.IMMUN ONE (14:50)
[2023-11-04] MEDS ORDERED: VANCOMYCIN HCL 1,000 MG, VIAL MATE ADAPTER 1 EACH in D5W 250 ML IV ONE (16:00)
[2023-11-04] MEDS: VANCOMYCIN HCL 1,000 MG, VIAL MATE ADAPTER 1 EACH in D5W 250 ML IV SCH (16:12)
[2023-11-04] MEDS: PANTOPRAZOLE 40MG VIAL IV SCH (16:12)
[2023-11-04 18:30] VITALS: BP 165/105
[2023-11-04 20:30] VITALS: BP 145/77; TEMP 98.4; O2SAT 98
[2023-11-05 04:40] VITALS: BP 140/79; TEMP 98.2; O2SAT 98
[2023-11-05] MEDS ORDERED: LIDOCAINE 1% SDV 5ML VIAL SC PRN (06:00)
[2023-11-05] MEDS ORDERED: HEPARIN 1,000UNITS/ML 10ML VIAL (FOR RADIOLOGY & DIALYSIS ONLY) IV PRN (06:00)
[2023-11-05] MEDS ORDERED: SODIUM CHLORIDE 0.9% 1000ML IV PRN (06:00)
[2023-11-05 06:19] LABS: BASO % 0.7 % (0.0-1.0); EOS % 0.4 % (0.0-3.0); HEMATOCRIT 25.6 % (42.0-52.0); HEMOGLOBIN 8.4 g/dl (13.5-17.5); LYMPH # 0.9 10^3/uL (1.5-5.0); LYMPH % 19.3 % (24.0-44.0); MEAN CORPUSCULAR HEMOGLOBIN 27.8 pg (27.0-33.0); MEAN CORPUSCULAR HGB CONC 32.8 g/dl (32.0-36.5); MEAN CORPUSCULAR VOLUME 84.8 fl (80.0-96.0); MONO # 0.5 10^3/uL (0.0-0.8); MONO % 11.4 % (2.0-8.0); NEUTROPHILS # 3.1 10^3/uL (1.5-8.5); NEUTROPHILS % 68.2 % (36.0-66.0); PLATELET COUNT, AUTOMATED 200 10^3/uL (150-450); RED BLOOD COUNT 3.02 10^6/uL (4.30-6.10); WHITE BLOOD COUNT 4.6 10^3/uL (4.0-10.0)
[2023-11-05 06:43] LABS: CALCIUM LEVEL 9.2 MG/DL (8.5-10.1); CREATININE FOR GFR 5.69 MG/DL (0.70-1.30); GLOMERULAR FILTRATION RATE 11.7 (>60); POTASSIUM SERUM 5.1 MMOL/L (3.5-5.1)
[2023-11-05] MEDS: HEPARIN 1,000UNITS/ML 10ML VIAL (FOR RADIOLOGY & DIALYSIS ONLY) XX SCH (08:56)
[2023-11-05 13:04] VITALS: BP 138/80; TEMP 97.5; O2SAT 97
[2023-11-05 13:56] LABS: PROCALCITONIN 0.32 ng/ml
[2023-11-05] MEDS: HEPARIN SOD (PORCINE) 5000UNITS/ML 1ML VIAL/SYRINGE SQ SCH (14:00)
[2023-11-05 17:14] VITALS: BP 139/80
[2023-11-05 21:20] VITALS: BP 138/80; TEMP 98.1; O2SAT 90
[2023-11-05] MEDS: HEPARIN 1,000UNITS/ML 10ML VIAL (FOR RADIOLOGY & DIALYSIS ONLY) IV STA (21:29)
[2023-11-06 04:30] VITALS: BP 140/107; TEMP 99; O2SAT 98
[2023-11-06] MEDS ORDERED: HEPARIN 1,000UNITS/ML 10ML VIAL (FOR RADIOLOGY & DIALYSIS ONLY) IV PRN (06:00)
[2023-11-06] MEDS ORDERED: LIDOCAINE 1% SDV 5ML VIAL SC PRN (06:00)
[2023-11-06] MEDS ORDERED: SODIUM CHLORIDE 0.9% 1000ML IV PRN (06:00)
[2023-11-06 06:35] LABS: BASO % 0.5 % (0.0-1.0); HEMATOCRIT 26.4 % (42.0-52.0); HEMOGLOBIN 8.6 g/dl (13.5-17.5); LYMPH # 1.2 10^3/uL (1.5-5.0); LYMPH % 18.8 % (24.0-44.0); MEAN CORPUSCULAR HEMOGLOBIN 27.7 pg (27.0-33.0); MEAN CORPUSCULAR HGB CONC 32.6 g/dl (32.0-36.5); MEAN CORPUSCULAR VOLUME 85.2 fl (80.0-96.0); MONO # 0.7 10^3/uL (0.0-0.8); NEUTROPHILS # 4.3 10^3/uL (1.5-8.5); NEUTROPHILS % 69.5 % (36.0-66.0); PLATELET COUNT, AUTOMATED 199 10^3/uL (150-450); WHITE BLOOD COUNT 6.2 10^3/uL (4.0-10.0)
[2023-11-06 07:01] LABS: CALCIUM LEVEL 9.8 MG/DL (8.5-10.1); CREATININE FOR GFR 7.39 MG/DL (0.70-1.30); GLOMERULAR FILTRATION RATE 8.6 (>60); POTASSIUM SERUM 5.8 MMOL/L (3.5-5.1)
[2023-11-06] MEDS: HEPARIN 1,000UNITS/ML 10ML VIAL (FOR RADIOLOGY & DIALYSIS ONLY) XX SCH (09:40)
[2023-11-06] MEDS ORDERED: HYDR50TA46 PO (11:34)
[2023-11-06] MEDS ORDERED: CLONI1TA PO (11:34)
[2023-11-06 12:00] VITALS: BP 143/91; TEMP 97.3; O2SAT 97
[2023-11-06] MEDS ORDERED: ACET1TAB55 PO (13:57)
[2023-11-06 14:15] VITALS: BP 143/91
[2023-11-06 14:46] VITALS: O2SAT 95
== END 2023-11-06 16:00 | disposition home or self-care (01) | DRG 640 ==
LOC: M ED 04:32 → M ED INP 12:28 → M PCU 14:40 → M MSPAV 11-04 14:01
PROVIDERS: ADMIT Internal Medicine Nephrology; ATTEND Internal Medicine
PROC: B246ZZZ Ultrasonography of Right and Left Heart (ICD-10-PCS; principal; 2023-11-04)
PROC: 5A1D70Z Performance of Urinary Filtration, Intermittent, Less than 6 Hours Per Day (ICD-10-PCS; 2023-11-05)
DX: E87.5 Hyperkalemia (principal); N18.6 End stage renal disease; E27.1 Primary adrenocortical insufficiency; I13.2 Hypertensive heart and chronic kidney disease with heart failure and with stage 5 chronic kidney disease, or end stage renal disease; J81.1 Chronic pulmonary edema; I50.32 Chronic diastolic (congestive) heart failure; T86.12 Kidney transplant failure; I16.0 Hypertensive urgency; K59.00 Constipation, unspecified; G89.29 Other chronic pain; G40.909 Epilepsy, unspecified, not intractable, without status epilepticus; F42.4 Excoriation (skin-picking) disorder; I27.20 Pulmonary hypertension, unspecified; E87.70 Fluid overload, unspecified; F39 Unspecified mood [affective] disorder; D63.8 Anemia in other chronic diseases classified elsewhere; E83.39 Other disorders of phosphorus metabolism; E53.8 Deficiency of other specified B group vitamins; K21.9 Gastro-esophageal reflux disease without esophagitis; F42.9 Obsessive-compulsive disorder, unspecified; Z79.899 Other long term (current) drug therapy; Z88.8 Allergy status to other drugs, medicaments and biological substances

== ENCOUNTER → 2023-11-14 | Outpatient (CLI) | payer MEDICARE, MEDICAID ==
[~2023-11-14] MED LIST changes: +ACET1TAB55 PO; +CARV25TA PO; +HYDR50TA46 PO; +SENN-23 PO
== END ==
LOC: M PLALAB 09:53
PROVIDERS: ATTEND Internal Medicine Infectious Disease
DX: I33.0 Acute and subacute infective endocarditis (principal)

== ENCOUNTER → 2023-12-12 | Outpatient (CLI) | payer MEDICARE, MEDICAID | LOC: M WUC 14:36 | PROVIDERS: ATTEND Psychiatry & Neurology Neurology | DX: R50.9 Fever, unspecified (principal) ==

== ENCOUNTER 2023-12-24 14:54 | Inpatient (IN) | payer MEDICARE, MEDICAID ==
[~2023-12-24 14:54] MED LIST changes: -B-1100TA2 PO
[2023-12-24 17:12] VITALS: BP 162/95; TEMP 99.1; O2SAT 99
[2023-12-24 18:04] LABS: HEMOGLOBIN 7.9 g/dl (13.5-17.5); MEAN CORPUSCULAR HEMOGLOBIN 26.8 pg (27.0-33.0); MEAN CORPUSCULAR HGB CONC 32.9 g/dl (32.0-36.5); MEAN CORPUSCULAR VOLUME 81.4 fl (80.0-96.0); PLATELET COUNT, AUTOMATED 229 10^3/uL (150-450); RED BLOOD COUNT 2.95 10^6/uL (4.30-6.10); WHITE BLOOD COUNT 6.7 10^3/uL (4.0-10.0)
[2023-12-24] MEDS ORDERED: B-1100TA2 PO (18:18)
[2023-12-24] MEDS ORDERED: GABA-1171 PO (18:18)
[2023-12-24] MEDS ORDERED: HYDR-3363 PO (18:19)
[2023-12-24] MEDS ORDERED: HOME MED LIST COMPLETE! XX SCH (18:20)
[2023-12-24 18:37] LABS: ALBUMIN 2.9 G/DL (3.2-5.2); ALKALINE PHOSPHATASE 114 U/L (40-129); ALT/SGPT < 9 U/L (7.0-40); AST/SGOT 11 U/L (<34); BILIRUBIN,TOTAL 0.2 MG/DL (0.3-1.2); BLOOD UREA NITROGEN 31 MG/DL (9-23); CALCIUM LEVEL 10.6 MG/DL (8.5-10.1); CARBON DIOXIDE LEVEL 30 MMOL/L (20-31); CHLORIDE LEVEL 90 MMOL/L (98-107); CREATININE FOR GFR 7.37 MG/DL (0.70-1.30); GLOMERULAR FILTRATION RATE 8.7 (>60); GLUCOSE, FASTING 109 MG/DL (60-100); POTASSIUM SERUM 4.4 MMOL/L (3.5-5.1); SODIUM LEVEL 128 MMOL/L (136-145)
[2023-12-24] MEDS: VANCOMYCIN/WATER FOR INJ 1,000 MG in IV 1 EA IV STA (18:44)
[2023-12-24] MEDS: **hydrALAZINE** 50 MG TAB PO SCH (18:49)
[2023-12-24] MEDS: cloNIDine 0.1MG TABLET PO SCH (18:49)
[2023-12-24] MEDS: ACETAMINOPHEN *IV* 1,000 MG in IV 1 EA IV ONE ×2 (18:53→23:26)
[2023-12-24 20:00] VITALS: BP 164/95; TEMP 98.8; O2SAT 97
[2023-12-24] MEDS ORDERED: ISOVUE-370 76% 100ML VIAL As Ordered ONE (21:21)
[2023-12-24] MEDS: GABAPENTIN 100 MG CAP PO SCH (21:42)
[2023-12-24] MEDS: CARVedilol 12.5 MG TAB PO SCH (21:43)
[2023-12-24] MEDS: PYRIDOXINE 50 MG TAB PO SCH (21:44)
[2023-12-24] MEDS: ACETYLCYSTEINE 20% 4 ML VIAL (200MG/ML) PO SCH (21:45)
[2023-12-25] VITALS: BP 162/95; TEMP 98.9; O2SAT 97
[2023-12-25 04:00] VITALS: BP 185/110; TEMP 98.4; O2SAT 94
[2023-12-25] MEDS ORDERED: SODIUM CHLORIDE 0.9% 1000 ML IV PRN (06:00)
[2023-12-25] MEDS ORDERED: HEPARIN 1,000UNITS/ML 10ML VIAL (FOR RADIOLOGY & DIALYSIS ONLY) IV PRN (06:00)
[2023-12-25 06:06] VITALS: BP 167/86; TEMP 98.3; O2SAT 94
[2023-12-25] MEDS ORDERED: VANCOMYCIN/WATER FOR INJ 1,000 MG in IV 1 EA IV SCH (07:00)
[2023-12-25] MEDS: PANTOPRAZOLE 40MG TAB (PROTONIX) PO SCH (08:26)
[2023-12-25] MEDS: NIFEdipine 30MG XL TAB PO SCH (08:27)
[2023-12-25] MEDS: THIAMINE 100 MG TAB PO SCH (08:27)
[2023-12-25] MEDS: VANCOMYCIN HCL 500 MG in DEXTROSE 5% (D5W) MINI-BAG PLU 100 ML IV ONE (09:23)
[2023-12-25] MEDS: MORPHINE 2 MG/ML 1ML VIAL IV ONE (10:49)
[2023-12-25] MEDS: (RENVELA) SEVELAMER **CARBONate** 800 MG TAB PO SCH (11:42)
[2023-12-25 11:49] VITALS: BP 180/90; TEMP 99.9; O2SAT 92
[2023-12-25] MEDS: DARBEPOETIN 200MCG/0.4ML *DIALYSIS* SYRINGE IV SCH (13:11)
[2023-12-25] MEDS: HEPARIN 1,000UNITS/ML 10ML VIAL (FOR RADIOLOGY & DIALYSIS ONLY) XX SCH (13:11)
[2023-12-25] MEDS: VANCOMYCIN 750MG/150 ML IV BAG IV SCH (16:40)
[2023-12-25 20:00] VITALS: BP 168/91; TEMP 99.9; O2SAT 97
[2023-12-26 04:04] VITALS: BP 181/102; TEMP 99.9; O2SAT 96
[2023-12-26 06:31] VITALS: BP 177/94; TEMP 99.2; O2SAT 96
[2023-12-26 12:00] VITALS: BP 176/99; TEMP 98.6; O2SAT 98
[2023-12-26] MEDS: MORPHINE 2 MG/ML 1ML VIAL IV PRN (15:31)
[2023-12-26 20:00] VITALS: BP 148/86; TEMP 98.8; O2SAT 97
[2023-12-26] MEDS: ACETAMINOPHEN *IV* 1,000 MG in IV 1 EA IV ONE (21:07)
[2023-12-27 04:00] VITALS: BP 166/101; TEMP 98.8; O2SAT 94
[2023-12-27 05:54] LABS: HEMATOCRIT 24.4 % (42.0-52.0); HEMOGLOBIN 7.7 g/dl (13.5-17.5); MEAN CORPUSCULAR HEMOGLOBIN 26.1 pg (27.0-33.0); MEAN CORPUSCULAR HGB CONC 31.6 g/dl (32.0-36.5); MEAN CORPUSCULAR VOLUME 82.7 fl (80.0-96.0); PLATELET COUNT, AUTOMATED 245 10^3/uL (150-450); RED BLOOD COUNT 2.95 10^6/uL (4.30-6.10); WHITE BLOOD COUNT 6.6 10^3/uL (4.0-10.0)
[2023-12-27] MEDS ORDERED: HEPARIN 1,000UNITS/ML 10ML VIAL (FOR RADIOLOGY & DIALYSIS ONLY) IV PRN (06:00)
[2023-12-27] MEDS ORDERED: SODIUM CHLORIDE 0.9% 250ML IV PRN (06:00)
[2023-12-27 06:17] LABS: VANCOMYCIN RANDOM 20.7 UG/ML
[2023-12-27 06:18] LABS: C REACTIVE PROTEIN QUANTITATIV 4.4 MG/DL (<1.0)
[2023-12-27 06:26] LABS: ALBUMIN 2.8 G/DL (3.2-5.2); CALCIUM LEVEL 11.3 MG/DL (8.5-10.1); CREATININE FOR GFR 7.43 MG/DL (0.70-1.30); GLOMERULAR FILTRATION RATE 8.6 (>60); PHOSPHORUS LEVEL 7.5 MG/DL (2.5-4.9); POTASSIUM SERUM 5.3 MMOL/L (3.5-5.1)
[2023-12-27] MEDS: HEPARIN 1,000UNITS/ML 10ML VIAL (FOR RADIOLOGY & DIALYSIS ONLY) XX SCH (10:45)
[2023-12-27 19:50] VITALS: BP 135/66; TEMP 99.9; O2SAT 97
[2023-12-27 20:00] VITALS: TEMP 97.5
[2023-12-27] MEDS: oxyCODONE 5MG TAB PO PRN (20:06)
[2023-12-28] VITALS (10 sets, daily range): BP systolic 132–166; BP diastolic 78–108; TEMP 97.7–99; O2SAT 97–99
[2023-12-28] MEDS ORDERED: propofoL 200 MG/20 ML VIAL ONE (11:36)
[2023-12-28] MEDS ORDERED: MIDAZOLAM INJ 2MG/2ML VIAL ONE (11:36)
[2023-12-28] MEDS ORDERED: fentaNYL 100 MCG/2 ML INJECTION ONE (11:36)
[2023-12-28] MEDS ORDERED: LIDOCAINE 2% 100MG/5ML SDV (FOR ANES.) ONE (11:36)
[2023-12-29 00:19] VITALS: BP 167/97; TEMP 99.3; O2SAT 96
[2023-12-29 04:13] VITALS: BP 167/100; TEMP 97.9; O2SAT 99
[2023-12-29] MEDS: ACETYLCYSTEINE 600 MG PO SCH (08:16)
[2023-12-29 12:00] VITALS: BP 185/100; TEMP 99.3; O2SAT 97
[2023-12-29 14:25] VITALS: BP 142/83
[2023-12-29 19:30] VITALS: BP 146/87; TEMP 98.3; O2SAT 99
[2023-12-30 01:02] VITALS: BP 147/86
[2023-12-30 04:00] VITALS: BP 178/96; TEMP 98.1; O2SAT 96
[2023-12-30] MEDS ORDERED: SODIUM CHLORIDE 0.9% 1000 ML IV PRN (06:00)
[2023-12-30] MEDS ORDERED: HEPARIN 1,000UNITS/ML 10ML VIAL (FOR RADIOLOGY & DIALYSIS ONLY) XX SCH (06:00)
[2023-12-30] MEDS ORDERED: HEPARIN 1,000UNITS/ML 10ML VIAL (FOR RADIOLOGY & DIALYSIS ONLY) IV PRN (06:00)
[2023-12-30] MEDS ORDERED: LIDOCAINE 1% SDV 5ML VIAL SC PRN (06:00)
[2023-12-30 06:03] LABS: BASO # 0.1 10^3/uL (0.0-0.2); BASO % 0.5 % (0.0-1.0); HEMOGLOBIN 7.9 g/dl (13.5-17.5); LYMPH # 1.9 10^3/uL (1.5-5.0); LYMPH % 19.8 % (24.0-44.0); MEAN CORPUSCULAR HEMOGLOBIN 25.5 pg (27.0-33.0); MEAN CORPUSCULAR HGB CONC 30.4 g/dl (32.0-36.5); MEAN CORPUSCULAR VOLUME 83.9 fl (80.0-96.0); MONO # 0.5 10^3/uL (0.0-0.8); MONO % 5.6 % (2.0-8.0); NEUTROPHILS % 73.5 % (36.0-66.0); PLATELET COUNT, AUTOMATED 277 10^3/uL (150-450); WHITE BLOOD COUNT 9.6 10^3/uL (4.0-10.0)
[2023-12-30 06:22] LABS: VANCOMYCIN RANDOM 19.9 UG/ML
[2023-12-30 06:26] LABS: CREATININE FOR GFR 8.29 MG/DL (0.70-1.30); GLOMERULAR FILTRATION RATE 7.6 (>60); POTASSIUM SERUM 6.7 MMOL/L (3.5-5.1)
[2023-12-30] MEDS: ALBUTEROL SULFATE 2.5MG/0.5ML INH NEB SOLN NEB ONE (07:14)
[2023-12-30] MEDS: DEXTROSE 50% 50ML SYRINGE IV STA (07:15)
[2023-12-30] MEDS: SODIUM BICARBONATE 8.4% INJ 50ML SYRINGE IV STA (07:15)
[2023-12-30] MEDS: HumuLIN R (REGULAR) INSULIN (NovoLIN R) **100U/ML** PER UNIT IV STA (07:15)
[2023-12-30] MEDS: PATIROMER SORBITEX CALCIUM 8.4 GM POWDER PACKET (VELTASSA) PO STA (07:32)
[2023-12-30] MEDS ORDERED: MIDAZOLAM INJ 2MG/2ML VIAL As Ordered ONE (11:40)
[2023-12-30] MEDS ORDERED: HEPARIN 1,000UNITS/ML 10ML VIAL (FOR RADIOLOGY & DIALYSIS ONLY) As Ordered ONE (11:40)
[2023-12-30] MEDS ORDERED: fentaNYL 100 MCG/2 ML INJECTION As Ordered ONE (11:40)
[2023-12-30] MEDS ORDERED: LIDOCAINE 1% MDV 20ML VIAL As Ordered ONE (11:41)
[2023-12-30] MEDS ORDERED: diphenhydrAMINE 50MG/ML VIAL As Ordered ONE (12:11)
[2023-12-30 19:53] VITALS: BP 114/72; TEMP 97.7; O2SAT 97
[2023-12-30 20:13] VITALS: TEMP 97.3
[2023-12-30] MEDS: ACETAMINOPHEN 325 MG TAB PO PRN (22:13)
[2023-12-31 00:57] VITALS: BP 133/85
[2023-12-31 04:00] VITALS: BP 138/85; TEMP 99.4; O2SAT 99
[2023-12-31 05:52] LABS: BASO % 0.6 % (0.0-1.0); HEMATOCRIT 25.3 % (42.0-52.0); LYMPH # 1.1 10^3/uL (1.5-5.0); LYMPH % 16.8 % (24.0-44.0); MEAN CORPUSCULAR HEMOGLOBIN 26.5 pg (27.0-33.0); MEAN CORPUSCULAR HGB CONC 31.6 g/dl (32.0-36.5); MEAN CORPUSCULAR VOLUME 83.8 fl (80.0-96.0); MONO # 0.7 10^3/uL (0.0-0.8); NEUTROPHILS # 4.7 10^3/uL (1.5-8.5); NEUTROPHILS % 70.8 % (36.0-66.0); PLATELET COUNT, AUTOMATED 269 10^3/uL (150-450); RED BLOOD COUNT 3.02 10^6/uL (4.30-6.10); WHITE BLOOD COUNT 6.6 10^3/uL (4.0-10.0)
[2023-12-31] MEDS ORDERED: LIDOCAINE 1% SDV 5ML VIAL SC PRN (06:00)
[2023-12-31] MEDS ORDERED: SODIUM CHLORIDE 0.9% 1000 ML IV PRN (06:00)
[2023-12-31] MEDS ORDERED: HEPARIN 1,000UNITS/ML 10ML VIAL (FOR RADIOLOGY & DIALYSIS ONLY) IV PRN (06:00)
[2023-12-31 06:16] LABS: CALCIUM LEVEL 9.8 MG/DL (8.5-10.1); CREATININE FOR GFR 5.06 MG/DL (0.70-1.30); GLOMERULAR FILTRATION RATE 13.4 (>60); MAGNESIUM LEVEL 2.2 MG/DL (1.8-2.4); PHOSPHORUS LEVEL 8.8 MG/DL (2.5-4.9); POTASSIUM SERUM 5.2 MMOL/L (3.5-5.1)
[2023-12-31] MEDS: HEPARIN 1,000UNITS/ML 10ML VIAL (FOR RADIOLOGY & DIALYSIS ONLY) XX SCH (10:13)
[2023-12-31] MEDS: LIDOCAINE VISCOUS 2% SOLN 15ML UDC As Ordered ONE (15:20)
[2023-12-31] MEDS ORDERED: fentaNYL 100 MCG/2 ML INJECTION ONE (15:57)
[2023-12-31] MEDS ORDERED: propofoL 200 MG/20 ML VIAL ONE ×5 (15:58)
[2023-12-31] MEDS ORDERED: LIDOCAINE 2% 100MG/5ML SDV (FOR ANES.) ONE (15:58)
[2023-12-31] MEDS ORDERED: MIDAZOLAM INJ 2MG/2ML VIAL ONE (15:58)
[2023-12-31] MEDS ORDERED: dexmedeTOMIDine (4MCG/ML)200MCG/50ML BTL (PRECEDEX) ONE (15:58)
[2023-12-31] MEDS: CETACAINE SPRAY 5GM As Ordered ONE (17:19)
[2023-12-31 18:40] VITALS: BP 141/85; TEMP 98.7; O2SAT 96
[2023-12-31 20:00] VITALS: BP 130/80; TEMP 96; O2SAT 96
[2024-01-01] VITALS: BP 167/99; TEMP 97.9; O2SAT 96
[2024-01-01 05:45] VITALS: BP 150/100; TEMP 97.9; O2SAT 96
[2024-01-01] MEDS ORDERED: SODIUM CHLORIDE 0.9% 250ML IV PRN (06:00)
[2024-01-01] MEDS ORDERED: LIDOCAINE 1% SDV 5ML VIAL SC PRN (06:00)
[2024-01-01] MEDS ORDERED: HEPARIN 1,000UNITS/ML 10ML VIAL (FOR RADIOLOGY & DIALYSIS ONLY) IV PRN (06:00)
[2024-01-01 06:13] LABS: BASO % 0.6 % (0.0-1.0); HEMATOCRIT 25.1 % (42.0-52.0); HEMOGLOBIN 7.7 g/dl (13.5-17.5); LYMPH # 1.1 10^3/uL (1.5-5.0); LYMPH % 20.1 % (24.0-44.0); MEAN CORPUSCULAR HEMOGLOBIN 25.6 pg (27.0-33.0); MEAN CORPUSCULAR HGB CONC 30.7 g/dl (32.0-36.5); MEAN CORPUSCULAR VOLUME 83.4 fl (80.0-96.0); MONO # 0.8 10^3/uL (0.0-0.8); MONO % 14.6 % (2.0-8.0); NEUTROPHILS # 3.4 10^3/uL (1.5-8.5); NEUTROPHILS % 64.1 % (36.0-66.0); PLATELET COUNT, AUTOMATED 228 10^3/uL (150-450); RED BLOOD COUNT 3.01 10^6/uL (4.30-6.10); WHITE BLOOD COUNT 5.3 10^3/uL (4.0-10.0)
[2024-01-01 06:34] LABS: VANCOMYCIN RANDOM 14.7 UG/ML
[2024-01-01 06:35] LABS: CALCIUM LEVEL 9.9 MG/DL (8.5-10.1); CREATININE FOR GFR 4.26 MG/DL (0.70-1.30); GLOMERULAR FILTRATION RATE 16.3 (>60); POTASSIUM SERUM 5.1 MMOL/L (3.5-5.1)
[2024-01-01] MEDS ORDERED: VANCOMYCIN HCL 500 MG in DEXTROSE 5% (D5W) MINI-BAG PLU 100 ML IV ONE (07:30)
[2024-01-01] MEDS: HEPARIN 1,000UNITS/ML 10ML VIAL (FOR RADIOLOGY & DIALYSIS ONLY) XX SCH (10:41)
[2024-01-01 12:29] VITALS: BP 155/91; TEMP 97.7; O2SAT 99
[2024-01-01] MEDS: AMPICILLIN SOD 2 GM in DEXTROSE 5% (D5W) MINI-BAG PLU 100 ML IV SCH (15:49)
[2024-01-01] MEDS: cefTRIAXone SOD 2 GM in DEXTROSE 5% (D5W) ADV/MINI-BAG 50 ML IV SCH (16:27)
[2024-01-01 20:00] VITALS: BP 148/89; TEMP 99.5; O2SAT 98
[2024-01-02 04:00] VITALS: BP 147/94; TEMP 97.9; O2SAT 97
[2024-01-02 06:23] LABS: BASO # 0.1 10^3/uL (0.0-0.2); BASO % 0.8 % (0.0-1.0); HEMATOCRIT 27.7 % (42.0-52.0); HEMOGLOBIN 8.5 g/dl (13.5-17.5); LYMPH # 1.3 10^3/uL (1.5-5.0); LYMPH % 19.6 % (24.0-44.0); MEAN CORPUSCULAR HEMOGLOBIN 26.2 pg (27.0-33.0); MEAN CORPUSCULAR HGB CONC 30.7 g/dl (32.0-36.5); MEAN CORPUSCULAR VOLUME 85.5 fl (80.0-96.0); MONO # 1.1 10^3/uL (0.0-0.8); MONO % 16.1 % (2.0-8.0); NEUTROPHILS # 4.2 10^3/uL (1.5-8.5); PLATELET COUNT, AUTOMATED 271 10^3/uL (150-450); RED BLOOD COUNT 3.24 10^6/uL (4.30-6.10); WHITE BLOOD COUNT 6.6 10^3/uL (4.0-10.0)
[2024-01-02 07:00] LABS: CALCIUM LEVEL 10.4 MG/DL (8.5-10.1); CREATININE FOR GFR 4.12 MG/DL (0.70-1.30); GLOMERULAR FILTRATION RATE 16.9 (>60); POTASSIUM SERUM 4.7 MMOL/L (3.5-5.1)
[2024-01-02 12:00] VITALS: BP 136/84; TEMP 98.2; O2SAT 98
[2024-01-02 20:04] LABS: HEMATOCRIT 30.6 % (42.0-52.0); HEMOGLOBIN 9.5 g/dl (13.5-17.5); MEAN CORPUSCULAR HEMOGLOBIN 26.5 pg (27.0-33.0); MEAN CORPUSCULAR VOLUME 85.2 fl (80.0-96.0); PLATELET COUNT, AUTOMATED 308 10^3/uL (150-450); RED BLOOD COUNT 3.59 10^6/uL (4.30-6.10); WHITE BLOOD COUNT 7.6 10^3/uL (4.0-10.0)
[2024-01-02 20:17] LABS: CALCIUM LEVEL 10.9 MG/DL (8.5-10.1); CREATININE FOR GFR 5.28 MG/DL (0.70-1.30); GLOMERULAR FILTRATION RATE 12.7 (>60); POTASSIUM SERUM 4.9 MMOL/L (3.5-5.1)
[2024-01-03 04:00] VITALS: BP 160/100; TEMP 98.2; O2SAT 95
[2024-01-03] MEDS ORDERED: SODIUM CHLORIDE 0.9% 1000 ML IV PRN (06:00)
[2024-01-03] MEDS ORDERED: HEPARIN 1,000UNITS/ML 10ML VIAL (FOR RADIOLOGY & DIALYSIS ONLY) IV PRN (06:00)
[2024-01-03] MEDS ORDERED: LIDOCAINE 1% SDV 5ML VIAL SC PRN (06:00)
[2024-01-03 06:05] LABS: BASO % 0.5 % (0.0-1.0); HEMATOCRIT 26.9 % (42.0-52.0); HEMOGLOBIN 8.2 g/dl (13.5-17.5); LYMPH # 1.8 10^3/uL (1.5-5.0); LYMPH % 20.9 % (24.0-44.0); MEAN CORPUSCULAR HEMOGLOBIN 25.9 pg (27.0-33.0); MEAN CORPUSCULAR HGB CONC 30.5 g/dl (32.0-36.5); MEAN CORPUSCULAR VOLUME 84.9 fl (80.0-96.0); MONO # 0.9 10^3/uL (0.0-0.8); MONO % 10.6 % (2.0-8.0); NEUTROPHILS # 5.8 10^3/uL (1.5-8.5); NEUTROPHILS % 67.3 % (36.0-66.0); PLATELET COUNT, AUTOMATED 269 10^3/uL (150-450); RED BLOOD COUNT 3.17 10^6/uL (4.30-6.10); WHITE BLOOD COUNT 8.6 10^3/uL (4.0-10.0)
[2024-01-03 06:41] LABS: CALCIUM LEVEL 10.6 MG/DL (8.5-10.1); CREATININE FOR GFR 6.1 MG/DL (0.70-1.30); GLOMERULAR FILTRATION RATE 10.8 (>60); POTASSIUM SERUM 4.8 MMOL/L (3.5-5.1)
[2024-01-03] MEDS: HEPARIN 1,000UNITS/ML 10ML VIAL (FOR RADIOLOGY & DIALYSIS ONLY) XX SCH (08:38)
[2024-01-03 12:46] LABS: C REACTIVE PROTEIN QUANTITATIV 1.3 MG/DL (<1.0)
[2024-01-03 12:53] VITALS: BP 158/100; TEMP 98.4; O2SAT 97
[2024-01-03] MEDS: cefTRIAXone SOD 2 GM in DEXTROSE 5% (D5W) ADV/MINI-BAG 50 ML IV SCH (18:25)
[2024-01-03] MEDS: AMPICILLIN SOD 2 GM in DEXTROSE 5% (D5W) MINI-BAG PLU 100 ML IV SCH (19:07)
[2024-01-03 20:00] VITALS: BP 154/93; TEMP 98.7; O2SAT 97
[2024-01-04 05:50] VITALS: BP 146/83; TEMP 97.8; O2SAT 98
[2024-01-04 05:53] LABS: BASO # 0.1 10^3/uL (0.0-0.2); BASO % 0.7 % (0.0-1.0); HEMATOCRIT 30.1 % (42.0-52.0); HEMOGLOBIN 9.2 g/dl (13.5-17.5); LYMPH # 1.6 10^3/uL (1.5-5.0); LYMPH % 18.4 % (24.0-44.0); MEAN CORPUSCULAR HGB CONC 30.6 g/dl (32.0-36.5); MONO % 11.4 % (2.0-8.0); NEUTROPHILS # 5.8 10^3/uL (1.5-8.5); NEUTROPHILS % 68.7 % (36.0-66.0); PLATELET COUNT, AUTOMATED 273 10^3/uL (150-450); RED BLOOD COUNT 3.54 10^6/uL (4.30-6.10); WHITE BLOOD COUNT 8.5 10^3/uL (4.0-10.0)
[2024-01-04 06:11] LABS: CALCIUM LEVEL 10.5 MG/DL (8.5-10.1); CREATININE FOR GFR 4.59 MG/DL (0.70-1.30); POTASSIUM SERUM 4.7 MMOL/L (3.5-5.1)
[2024-01-04] MEDS ORDERED: SODIUM CHLORIDE 0.9% 1000 ML IV PRN (06:55)
[2024-01-04] MEDS ORDERED: HEPARIN 1,000UNITS/ML 10ML VIAL (FOR RADIOLOGY & DIALYSIS ONLY) IV PRN (06:55)
[2024-01-04] MEDS ORDERED: HEPARIN 1,000UNITS/ML 10ML VIAL (FOR RADIOLOGY & DIALYSIS ONLY) XX SCH (06:55)
[2024-01-04 12:00] VITALS: BP 136/85; TEMP 97.9; O2SAT 97
[2024-01-04] MEDS ORDERED: MORPHINE 10 MG/ML 1ML VIAL IV ONE (14:30)
[2024-01-04 20:00] VITALS: BP 141/84; TEMP 97.8; O2SAT 98
[2024-01-05 05:57] LABS: BASO # 0.1 10^3/uL (0.0-0.2); BASO % 0.6 % (0.0-1.0); HEMATOCRIT 26.4 % (42.0-52.0); HEMOGLOBIN 8.1 g/dl (13.5-17.5); LYMPH # 1.8 10^3/uL (1.5-5.0); LYMPH % 19.2 % (24.0-44.0); MEAN CORPUSCULAR HGB CONC 30.7 g/dl (32.0-36.5); MEAN CORPUSCULAR VOLUME 84.6 fl (80.0-96.0); MONO % 11.3 % (2.0-8.0); NEUTROPHILS # 6.3 10^3/uL (1.5-8.5); NEUTROPHILS % 68.4 % (36.0-66.0); PLATELET COUNT, AUTOMATED 245 10^3/uL (150-450); RED BLOOD COUNT 3.12 10^6/uL (4.30-6.10); WHITE BLOOD COUNT 9.2 10^3/uL (4.0-10.0)
[2024-01-05 06:00] VITALS: BP 158/93; TEMP 97.8; O2SAT 96
[2024-01-05 06:28] LABS: CALCIUM LEVEL 10.4 MG/DL (8.5-10.1); CREATININE FOR GFR 6.59 MG/DL (0.70-1.30); GLOMERULAR FILTRATION RATE 9.9 (>60); POTASSIUM SERUM 5.7 MMOL/L (3.5-5.1)
[2024-01-05] MEDS: PATIROMER SORBITEX CALCIUM 8.4 GM POWDER PACKET (VELTASSA) PO ONE (09:49)
[2024-01-05 12:00] VITALS: BP 139/72; TEMP 99.3; O2SAT 97
[2024-01-05 17:15] VITALS: BP 155/97
[2024-01-05 20:29] VITALS: BP 152/94; TEMP 96.3; TEMP 99.3; O2SAT 97
[2024-01-06 04:00] VITALS: BP 153/94; TEMP 98; O2SAT 95
[2024-01-06] MEDS ORDERED: HEPARIN 1,000UNITS/ML 10ML VIAL (FOR RADIOLOGY & DIALYSIS ONLY) IV PRN (06:00)
[2024-01-06] MEDS ORDERED: SODIUM CHLORIDE 0.9% 1000 ML IV PRN (06:00)
[2024-01-06 06:08] LABS: BASO # 0.1 10^3/uL (0.0-0.2); BASO % 0.6 % (0.0-1.0); HEMATOCRIT 25.8 % (42.0-52.0); LYMPH # 1.8 10^3/uL (1.5-5.0); LYMPH % 18.1 % (24.0-44.0); MEAN CORPUSCULAR HEMOGLOBIN 26.7 pg (27.0-33.0); MONO # 0.9 10^3/uL (0.0-0.8); MONO % 9.4 % (2.0-8.0); NEUTROPHILS # 7.1 10^3/uL (1.5-8.5); NEUTROPHILS % 71.4 % (36.0-66.0); PLATELET COUNT, AUTOMATED 239 10^3/uL (150-450); WHITE BLOOD COUNT 9.9 10^3/uL (4.0-10.0)
[2024-01-06 06:34] LABS: CALCIUM LEVEL 10.1 MG/DL (8.5-10.1); CREATININE FOR GFR 8.02 MG/DL (0.70-1.30); GLOMERULAR FILTRATION RATE 7.9 (>60); POTASSIUM SERUM 6.1 MMOL/L (3.5-5.1)
[2024-01-06] MEDS: HEPARIN 1,000UNITS/ML 10ML VIAL (FOR RADIOLOGY & DIALYSIS ONLY) XX SCH (09:37)
[2024-01-06 19:35] LABS: HEMATOCRIT 28.2 % (42.0-52.0); HEMOGLOBIN 8.8 g/dl (13.5-17.5); MEAN CORPUSCULAR HEMOGLOBIN 26.7 pg (27.0-33.0); MEAN CORPUSCULAR HGB CONC 31.2 g/dl (32.0-36.5); MEAN CORPUSCULAR VOLUME 85.7 fl (80.0-96.0); PLATELET COUNT, AUTOMATED 268 10^3/uL (150-450); RED BLOOD COUNT 3.29 10^6/uL (4.30-6.10); WHITE BLOOD COUNT 8.4 10^3/uL (4.0-10.0)
[2024-01-06 20:00] VITALS: BP 156/93; TEMP 99; O2SAT 98
[2024-01-06 20:10] LABS: CALCIUM LEVEL 10.3 MG/DL (8.5-10.1); CREATININE FOR GFR 4.35 MG/DL (0.70-1.30); GLOMERULAR FILTRATION RATE 15.9 (>60); POTASSIUM SERUM 4.6 MMOL/L (3.5-5.1)
[2024-01-07 05:42] VITALS: BP 152/74; TEMP 99; O2SAT 96
[2024-01-07 05:43] VITALS: BP 152/74; TEMP 99; O2SAT 96
[2024-01-07 06:12] LABS: BASO # 0.1 10^3/uL (0.0-0.2); BASO % 0.6 % (0.0-1.0); HEMATOCRIT 26.5 % (42.0-52.0); HEMOGLOBIN 8.1 g/dl (13.5-17.5); LYMPH # 1.4 10^3/uL (1.5-5.0); LYMPH % 16.4 % (24.0-44.0); MEAN CORPUSCULAR HEMOGLOBIN 26.4 pg (27.0-33.0); MEAN CORPUSCULAR HGB CONC 30.6 g/dl (32.0-36.5); MEAN CORPUSCULAR VOLUME 86.3 fl (80.0-96.0); MONO # 0.9 10^3/uL (0.0-0.8); MONO % 10.1 % (2.0-8.0); NEUTROPHILS # 6.2 10^3/uL (1.5-8.5); NEUTROPHILS % 72.5 % (36.0-66.0); PLATELET COUNT, AUTOMATED 242 10^3/uL (150-450); RED BLOOD COUNT 3.07 10^6/uL (4.30-6.10); WHITE BLOOD COUNT 8.5 10^3/uL (4.0-10.0)
[2024-01-07 06:51] LABS: CALCIUM LEVEL 9.8 MG/DL (8.5-10.1); CREATININE FOR GFR 5.25 MG/DL (0.70-1.30); GLOMERULAR FILTRATION RATE 12.8 (>60); POTASSIUM SERUM 5.7 MMOL/L (3.5-5.1)
[2024-01-07] MEDS ORDERED: HEPARIN 1,000UNITS/ML 10ML VIAL (FOR RADIOLOGY & DIALYSIS ONLY) XX SCH (07:25)
[2024-01-07] MEDS ORDERED: HEPARIN 1,000UNITS/ML 10ML VIAL (FOR RADIOLOGY & DIALYSIS ONLY) IV PRN (07:25)
[2024-01-07] MEDS ORDERED: SODIUM CHLORIDE 0.9% 1000 ML IV PRN (07:25)
[2024-01-07 12:00] VITALS: BP 168/95; TEMP 98.4; O2SAT 98
[2024-01-07] MEDS: PATIROMER SORBITEX CALCIUM 8.4 GM POWDER PACKET (VELTASSA) PO ONE (15:30)
[2024-01-08 03:54] VITALS: BP 158/97; TEMP 99; O2SAT 98
[2024-01-08] MEDS ORDERED: HEPARIN 1,000UNITS/ML 10ML VIAL (FOR RADIOLOGY & DIALYSIS ONLY) IV PRN (06:00)
[2024-01-08] MEDS ORDERED: SODIUM CHLORIDE 0.9% 250ML IV PRN (06:00)
[2024-01-08] MEDS: HEPARIN 1,000UNITS/ML 10ML VIAL (FOR RADIOLOGY & DIALYSIS ONLY) XX SCH (09:30)
[2024-01-08 20:30] VITALS: BP 150/88; TEMP 99; O2SAT 98
[2024-01-09 05:18] VITALS: BP 158/93; TEMP 99; O2SAT 98
[2024-01-09 05:34] VITALS: BP 124/72; TEMP 97.7; O2SAT 96
[2024-01-09 19:20] LABS: HEMATOCRIT 26.6 % (42.0-52.0); HEMOGLOBIN 8.2 g/dl (13.5-17.5); MEAN CORPUSCULAR HEMOGLOBIN 26.5 pg (27.0-33.0); MEAN CORPUSCULAR HGB CONC 30.8 g/dl (32.0-36.5); MEAN CORPUSCULAR VOLUME 86.1 fl (80.0-96.0); PLATELET COUNT, AUTOMATED 199 10^3/uL (150-450); RED BLOOD COUNT 3.09 10^6/uL (4.30-6.10)
[2024-01-09 19:40] LABS: CALCIUM LEVEL 9.9 MG/DL (8.5-10.1); CREATININE FOR GFR 5.66 MG/DL (0.70-1.30); GLOMERULAR FILTRATION RATE 11.7 (>60); POTASSIUM SERUM 5.9 MMOL/L (3.5-5.1)
[2024-01-10 03:10] VITALS: BP 155/90; TEMP 99; O2SAT 96
[2024-01-10] MEDS ORDERED: SODIUM CHLORIDE 0.9% 1000 ML IV PRN (06:00)
[2024-01-10] MEDS ORDERED: HEPARIN 1,000UNITS/ML 10ML VIAL (FOR RADIOLOGY & DIALYSIS ONLY) IV PRN (06:00)
[2024-01-10] MEDS: HEPARIN 1,000UNITS/ML 10ML VIAL (FOR RADIOLOGY & DIALYSIS ONLY) XX SCH (11:20)
[2024-01-11 04:00] VITALS: BP 144/81; TEMP 99.1; O2SAT 97
[2024-01-11] MEDS: hydrOXYzine 50 MG TAB PO PRN (21:31)
[2024-01-12] MEDS ORDERED: LIDOCAINE 1% SDV 5ML VIAL SC PRN (06:00)
[2024-01-12] MEDS ORDERED: HEPARIN 1,000UNITS/ML 10ML VIAL (FOR RADIOLOGY & DIALYSIS ONLY) IV PRN (06:00)
[2024-01-12] MEDS ORDERED: SODIUM CHLORIDE 0.9% 1000 ML IV PRN (06:00)
[2024-01-12 06:14] VITALS: BP 145/80; TEMP 98.7; O2SAT 97
[2024-01-12] MEDS: HEPARIN 1,000UNITS/ML 10ML VIAL (FOR RADIOLOGY & DIALYSIS ONLY) XX SCH (10:48)
[2024-01-12 20:21] VITALS: BP 162/102; TEMP 97.3; O2SAT 98
[2024-01-13 01:44] VITALS: BP 146/84
[2024-01-13 04:00] VITALS: BP 150/80; TEMP 97.7; O2SAT 98
[2024-01-13] MEDS ORDERED: SODIUM CHLORIDE 0.9% 1000 ML IV PRN (06:00)
[2024-01-13] MEDS ORDERED: LIDOCAINE 1% SDV 5ML VIAL SC PRN (06:00)
[2024-01-13] MEDS ORDERED: HEPARIN 1,000UNITS/ML 10ML VIAL (FOR RADIOLOGY & DIALYSIS ONLY) IV PRN (06:00)
[2024-01-13] MEDS: HEPARIN 1,000UNITS/ML 10ML VIAL (FOR RADIOLOGY & DIALYSIS ONLY) XX SCH (11:26)
[2024-01-13 12:00] VITALS: BP 158/95; TEMP 98.8; O2SAT 98
[2024-01-13 18:40] LABS: HEMATOCRIT 28.9 % (42.0-52.0); HEMOGLOBIN 9.3 g/dl (13.5-17.5); MEAN CORPUSCULAR HEMOGLOBIN 27.8 pg (27.0-33.0); MEAN CORPUSCULAR HGB CONC 32.2 g/dl (32.0-36.5); MEAN CORPUSCULAR VOLUME 86.3 fl (80.0-96.0); PLATELET COUNT, AUTOMATED 209 10^3/uL (150-450); RED BLOOD COUNT 3.35 10^6/uL (4.30-6.10); WHITE BLOOD COUNT 7.8 10^3/uL (4.0-10.0)
[2024-01-13 19:03] LABS: CALCIUM LEVEL 9.5 MG/DL (8.5-10.1); CREATININE FOR GFR 4.05 MG/DL (0.70-1.30); GLOMERULAR FILTRATION RATE 17.3 (>60); POTASSIUM SERUM 4.6 MMOL/L (3.5-5.1)
[2024-01-13 19:57] VITALS: BP 143/92; TEMP 98.9; O2SAT 98
[2024-01-13] MEDS: ONDANSETRON 4MG ORAL DISINTEGRATING TAB SL PRN (23:31)
[2024-01-14 04:00] VITALS: BP 144/80; TEMP 98.8; O2SAT 98
[2024-01-15 04:00] VITALS: BP 148/91; TEMP 99; O2SAT 94
[2024-01-15] MEDS ORDERED: LIDOCAINE 1% SDV 5ML VIAL SC PRN (06:00)
[2024-01-15] MEDS ORDERED: SODIUM CHLORIDE 0.9% 1000 ML IV PRN (06:00)
[2024-01-15] MEDS ORDERED: HEPARIN 1,000UNITS/ML 10ML VIAL (FOR RADIOLOGY & DIALYSIS ONLY) XX SCH (06:00)
[2024-01-15 06:18] LABS: HEMATOCRIT 26.7 % (42.0-52.0); HEMOGLOBIN 8.3 g/dl (13.5-17.5); MEAN CORPUSCULAR HEMOGLOBIN 27.1 pg (27.0-33.0); MEAN CORPUSCULAR HGB CONC 31.1 g/dl (32.0-36.5); MEAN CORPUSCULAR VOLUME 87.3 fl (80.0-96.0); PLATELET COUNT, AUTOMATED 190 10^3/uL (150-450); RED BLOOD COUNT 3.06 10^6/uL (4.30-6.10); WHITE BLOOD COUNT 7.7 10^3/uL (4.0-10.0)
[2024-01-15 06:43] LABS: CALCIUM LEVEL 10.5 MG/DL (8.5-10.1); CREATININE FOR GFR 6.63 MG/DL (0.70-1.30); GLOMERULAR FILTRATION RATE 9.8 (>60)
[2024-01-15] MEDS: HEPARIN 1,000UNITS/ML 10ML VIAL (FOR RADIOLOGY & DIALYSIS ONLY) IV PRN (11:12)
[2024-01-16 03:55] VITALS: BP 150/93; TEMP 99.5; O2SAT 100
[2024-01-16 06:00] LABS: ALBUMIN 3.3 G/DL (3.2-5.2); ALKALINE PHOSPHATASE 105 U/L (40-129); ALT/SGPT 11 U/L (7.0-40); AST/SGOT < 8 U/L (<34); BILIRUBIN,TOTAL < 0.2 MG/DL (0.3-1.2); BLOOD UREA NITROGEN 43 MG/DL (9-23); CALCIUM LEVEL 9.9 MG/DL (8.5-10.1); CARBON DIOXIDE LEVEL 23 MMOL/L (20-31); CHLORIDE LEVEL 96 MMOL/L (98-107); CREATININE FOR GFR 4.57 MG/DL (0.70-1.30); GLUCOSE, FASTING 120 MG/DL (60-100); POTASSIUM SERUM 5.4 MMOL/L (3.5-5.1); SODIUM LEVEL 132 MMOL/L (136-145); TOTAL PROTEIN 6.8 G/DL (5.7-8.2)
[2024-01-16 19:18] LABS: HEMATOCRIT 29.9 % (42.0-52.0); HEMOGLOBIN 9.5 g/dl (13.5-17.5); MEAN CORPUSCULAR HEMOGLOBIN 27.5 pg (27.0-33.0); MEAN CORPUSCULAR HGB CONC 31.8 g/dl (32.0-36.5); MEAN CORPUSCULAR VOLUME 86.4 fl (80.0-96.0); PLATELET COUNT, AUTOMATED 210 10^3/uL (150-450); RED BLOOD COUNT 3.46 10^6/uL (4.30-6.10); WHITE BLOOD COUNT 7.8 10^3/uL (4.0-10.0)
[2024-01-17 05:23] VITALS: BP 156/94; TEMP 98.8; O2SAT 97
[2024-01-17] MEDS ORDERED: SODIUM CHLORIDE 0.9% 1000 ML IV PRN (06:00)
[2024-01-17] MEDS ORDERED: HEPARIN 1,000UNITS/ML 10ML VIAL (FOR RADIOLOGY & DIALYSIS ONLY) IV PRN (06:00)
[2024-01-17] MEDS ORDERED: LIDOCAINE 1% SDV 5ML VIAL SC PRN (06:00)
[2024-01-17] MEDS: HEPARIN 1,000UNITS/ML 10ML VIAL (FOR RADIOLOGY & DIALYSIS ONLY) XX SCH (09:40)
[2024-01-17 13:16] VITALS: BP 156/93; TEMP 98.4; O2SAT 97
[2024-01-18 04:00] VITALS: BP 176/101; TEMP 99; O2SAT 96
[2024-01-18 06:49] VITALS: BP 155/90
[2024-01-19 04:15] VITALS: BP 145/97; TEMP 98.8; O2SAT 97
[2024-01-20 04:00] VITALS: BP 168/104; TEMP 98.8; O2SAT 98
[2024-01-20 04:05] VITALS: BP 162/100
[2024-01-20] MEDS ORDERED: HEPARIN 1,000UNITS/ML 10ML VIAL (FOR RADIOLOGY & DIALYSIS ONLY) IV PRN (06:00)
[2024-01-20] MEDS ORDERED: SODIUM CHLORIDE 0.9% 1000 ML IV PRN (06:00)
[2024-01-20 07:54] VITALS: BP 171/104
[2024-01-20] MEDS: HEPARIN 1,000UNITS/ML 10ML VIAL (FOR RADIOLOGY & DIALYSIS ONLY) XX SCH (09:30)
[2024-01-20 13:20] LABS: HEMATOCRIT 28.7 % (42.0-52.0); HEMOGLOBIN 9.1 g/dl (13.5-17.5); MEAN CORPUSCULAR HEMOGLOBIN 27.7 pg (27.0-33.0); MEAN CORPUSCULAR HGB CONC 31.7 g/dl (32.0-36.5); MEAN CORPUSCULAR VOLUME 87.5 fl (80.0-96.0); PLATELET COUNT, AUTOMATED 217 10^3/uL (150-450); RED BLOOD COUNT 3.28 10^6/uL (4.30-6.10)
[2024-01-20 13:54] LABS: ALBUMIN 3.2 G/DL (3.2-5.2); BILIRUBIN,DIRECT 0.2 MG/DL (<0.4); BILIRUBIN,TOTAL 0.4 MG/DL (0.3-1.2); CALCIUM LEVEL 10.2 MG/DL (8.5-10.1); CREATININE FOR GFR 3.69 MG/DL (0.70-1.30); GLOMERULAR FILTRATION RATE 19.2 (>60); POTASSIUM SERUM 3.9 MMOL/L (3.5-5.1)
[2024-01-20] MEDS ORDERED: LIDOCAINE 5% (LIDODERM) PATCH TD PRN (18:30)
[2024-01-21 06:25] VITALS: BP 171/111; TEMP 98.8; O2SAT 94
[2024-01-21 14:03] VITALS: BP 152/88
[2024-01-22] MEDS ORDERED: SODIUM CHLORIDE 0.9% 250ML IV PRN (06:00)
[2024-01-22] MEDS ORDERED: HEPARIN 1,000UNITS/ML 10ML VIAL (FOR RADIOLOGY & DIALYSIS ONLY) IV PRN (06:00)
[2024-01-22 06:50] VITALS: BP 157/68; TEMP 97.8; O2SAT 98
[2024-01-22] MEDS: HEPARIN 1,000UNITS/ML 10ML VIAL (FOR RADIOLOGY & DIALYSIS ONLY) XX SCH (09:51)
[2024-01-23 06:09] VITALS: BP 149/91; TEMP 98.8; O2SAT 93
[2024-01-23 18:43] LABS: HEMOGLOBIN 8.9 g/dl (13.5-17.5); MEAN CORPUSCULAR HGB CONC 31.8 g/dl (32.0-36.5); MEAN CORPUSCULAR VOLUME 88.1 fl (80.0-96.0); PLATELET COUNT, AUTOMATED 173 10^3/uL (150-450); RED BLOOD COUNT 3.18 10^6/uL (4.30-6.10); WHITE BLOOD COUNT 5.2 10^3/uL (4.0-10.0)
[2024-01-23 19:08] LABS: CALCIUM LEVEL 10.2 MG/DL (8.5-10.1); CREATININE FOR GFR 6.01 MG/DL (0.70-1.30); POTASSIUM SERUM 5.8 MMOL/L (3.5-5.1)
[2024-01-24 05:30] VITALS: BP 156/95; TEMP 98.6; O2SAT 96
[2024-01-24] MEDS ORDERED: HEPARIN 1,000UNITS/ML 10ML VIAL (FOR RADIOLOGY & DIALYSIS ONLY) IV PRN (06:00)
[2024-01-24] MEDS ORDERED: SODIUM CHLORIDE 0.9% 1000 ML IV PRN (06:00)
[2024-01-24] MEDS: HEPARIN 1,000UNITS/ML 10ML VIAL (FOR RADIOLOGY & DIALYSIS ONLY) XX SCH (11:22)
[2024-01-24 14:18] LABS: C REACTIVE PROTEIN QUANTITATIV 2.39 MG/DL (<1.0)
[2024-01-25 05:30] VITALS: TEMP 98.1; O2SAT 96
[2024-01-26 06:17] VITALS: BP 158/98; TEMP 98.8; O2SAT 94
[2024-01-26] MEDS: ONDANSETRON 4MG 2ML VIAL IV ONE (18:27)
[2024-01-27] VITALS (33 sets, daily range): BP systolic 124–188; BP diastolic 68–102; TEMP 96.2–99.9; O2SAT 83–97
[2024-01-27] MEDS: ACETAMINOPHEN *IV* 1,000 MG in IV 1 EA IV ONE (01:46)
[2024-01-27 02:09] LABS: VENOUS BASE EXCESS -8.5 (-2.0-2.0); VENOUS HCO3 16.1 MMOL/L (23.0-27.0); VENOUS O2 SATURATION 96.1 % (60.0-80.0); VENOUS PARTIAL PRESSURE CO2 30.1 mmHg (38.0-50.0); VENOUS PARTIAL PRESSURE O2 92.5 mmHg (30.0-50.0); VENOUS PH 7.346 UNITS (7.330-7.430); VENOUS STANDARD HCO3 17.6 MMOL/L
[2024-01-27 02:15] LABS: BASO % 0.3 % (0.0-1.0); HEMATOCRIT 29.5 % (42.0-52.0); HEMOGLOBIN 9.4 g/dl (13.5-17.5); LYMPH % 10.1 % (24.0-44.0); MEAN CORPUSCULAR HEMOGLOBIN 27.8 pg (27.0-33.0); MEAN CORPUSCULAR HGB CONC 31.9 g/dl (32.0-36.5); MEAN CORPUSCULAR VOLUME 87.3 fl (80.0-96.0); MONO # 0.6 10^3/uL (0.0-0.8); MONO % 5.6 % (2.0-8.0); NEUTROPHILS # 8.6 10^3/uL (1.5-8.5); NEUTROPHILS % 83.7 % (36.0-66.0); PLATELET COUNT, AUTOMATED 198 10^3/uL (150-450); RED BLOOD COUNT 3.38 10^6/uL (4.30-6.10); WHITE BLOOD COUNT 10.3 10^3/uL (4.0-10.0)
[2024-01-27 02:29] LABS: ERYTHROCYTE SEDIMENTATION RATE 45 mm/hr (0-15)
[2024-01-27 02:32] LABS: INR 1.06; PARTIAL THROMBOPLASTIN TIME 34.2 SECONDS (24.8-34.2); PROTHROMBIN TIME 14.1 SECONDS (12.5-14.5)
[2024-01-27 02:37] LABS: C REACTIVE PROTEIN QUANTITATIV 1.7 MG/DL (<1.0)
[2024-01-27 02:41] LABS: ALBUMIN 3.3 G/DL (3.2-5.2); BILIRUBIN,DIRECT 0.1 MG/DL (<0.4); BILIRUBIN,TOTAL 0.2 MG/DL (0.3-1.2); CALCIUM LEVEL 10.4 MG/DL (8.5-10.1); CREATININE FOR GFR 7.7 MG/DL (0.70-1.30); GLOMERULAR FILTRATION RATE 8.2 (>60); MAGNESIUM LEVEL 2.5 MG/DL (1.8-2.4); PHOSPHORUS LEVEL 9.9 MG/DL (2.5-4.9); POTASSIUM SERUM 6.6 MMOL/L (3.5-5.1); TOTAL PROTEIN 7.1 G/DL (5.7-8.2)
[2024-01-27 03:10] LABS: D-DIMER QUANT 1.08 ug/mL (<0.5)
[2024-01-27] MEDS: PATIROMER SORBITEX CALCIUM 8.4 GM POWDER PACKET (VELTASSA) PO ONE (03:22)
[2024-01-27] MEDS: IPRATROPIUM 0.5MG/ALBUTEROL 2.5MG INH SOL UD 3ML (DUONEB) NEB ONE (03:26)
[2024-01-27] MEDS ORDERED: SODIUM CHLORIDE 0.9% 250ML IV PRN (06:00)
[2024-01-27] MEDS ORDERED: HEPARIN 1,000UNITS/ML 10ML VIAL (FOR RADIOLOGY & DIALYSIS ONLY) XX SCH (06:00)
[2024-01-27] MEDS ORDERED: LIDOCAINE 1% SDV 5ML VIAL SC PRN (06:00)
[2024-01-27] MEDS: LACTOBACILLUS ACIDOPHILUS CAP (BACID) PO SCH (06:35)
[2024-01-27] MEDS: HEPARIN 1,000UNITS/ML 10ML VIAL (FOR RADIOLOGY & DIALYSIS ONLY) IV PRN (11:08)
[2024-01-27 19:09] LABS: HEMATOCRIT 27.7 % (42.0-52.0); HEMOGLOBIN 8.9 g/dl (13.5-17.5); MEAN CORPUSCULAR HGB CONC 32.1 g/dl (32.0-36.5); MEAN CORPUSCULAR VOLUME 87.1 fl (80.0-96.0); PLATELET COUNT, AUTOMATED 199 10^3/uL (150-450); RED BLOOD COUNT 3.18 10^6/uL (4.30-6.10); WHITE BLOOD COUNT 6.1 10^3/uL (4.0-10.0)
[2024-01-27 19:30] LABS: CALCIUM LEVEL 9.5 MG/DL (8.5-10.1); CREATININE FOR GFR 4.66 MG/DL (0.70-1.30); GLOMERULAR FILTRATION RATE 14.7 (>60); POTASSIUM SERUM 5.1 MMOL/L (3.5-5.1)
[2024-01-28] VITALS (9 sets, daily range): BP systolic 139–159; BP diastolic 84–100; TEMP 98–100.2; O2SAT 83–98
[2024-01-28] MEDS ORDERED: LIDOCAINE 1% SDV 5ML VIAL SC PRN (06:00)
[2024-01-28] MEDS ORDERED: SODIUM CHLORIDE 0.9% 250ML IV PRN (06:00)
[2024-01-28] MEDS ORDERED: HEPARIN 1,000UNITS/ML 10ML VIAL (FOR RADIOLOGY & DIALYSIS ONLY) IV PRN (06:00)
[2024-01-28] MEDS: cloNIDine 0.2 MG TAB PO ONE (07:26)
[2024-01-28] MEDS: HEPARIN 1,000UNITS/ML 10ML VIAL (FOR RADIOLOGY & DIALYSIS ONLY) XX SCH (09:20)
[2024-01-29 04:00] VITALS: BP 160/85; TEMP 99.1; O2SAT 95
[2024-01-29] MEDS ORDERED: LIDOCAINE 1% SDV 5ML VIAL SC PRN (06:00)
[2024-01-29] MEDS ORDERED: SODIUM CHLORIDE 0.9% 1000 ML IV PRN (06:00)
[2024-01-29] MEDS ORDERED: HEPARIN 1,000UNITS/ML 10ML VIAL (FOR RADIOLOGY & DIALYSIS ONLY) IV PRN (06:00)
[2024-01-29] MEDS: HEPARIN 1,000UNITS/ML 10ML VIAL (FOR RADIOLOGY & DIALYSIS ONLY) XX SCH (11:28)
[2024-01-29] MEDS ORDERED: LIDO5TD TD (11:50)
[2024-01-29] MEDS ORDERED: RENV2TAB PO (11:50)
[2024-01-29] MEDS ORDERED: RISATAB3 PO (11:50)
[2024-01-29] MEDS ORDERED: OXYC-517 PO (11:54)
[2024-01-29 13:07] VITALS: BP 129/79
== END 2024-01-29 14:58 | disposition home or self-care (01) | DRG 314 ==
LOC: M MSPAV 16:59
PROVIDERS: ADMIT Student in an Organized Health Care Education/Training Program; ATTEND General Practice
PROC: 5A1D70Z Performance of Urinary Filtration, Intermittent, Less than 6 Hours Per Day (ICD-10-PCS; principal; 2023-12-25)
PROC: B246ZZZ Ultrasonography of Right and Left Heart (ICD-10-PCS; 2023-12-27)
PROC: 05PYX3Z Removal of Infusion Device from Upper Vein, External Approach (ICD-10-PCS; 2023-12-28)
PROC: 0JH63XZ Insertion of Tunneled Vascular Access Device into Chest Subcutaneous Tissue and Fascia, Percutaneous Approach (ICD-10-PCS; 2023-12-30)
PROC: 02HV33Z Insertion of Infusion Device into Superior Vena Cava, Percutaneous Approach (ICD-10-PCS; 2023-12-30)
PROC: B246ZZ4 Ultrasonography of Right and Left Heart, Transesophageal (ICD-10-PCS; 2023-12-31)
DX: T82.7XXA Infection and inflammatory reaction due to other cardiac and vascular devices, implants and grafts, initial encounter (principal); I33.0 Acute and subacute infective endocarditis; N18.6 End stage renal disease; J96.01 Acute respiratory failure with hypoxia; I50.32 Chronic diastolic (congestive) heart failure; I13.2 Hypertensive heart and chronic kidney disease with heart failure and with stage 5 chronic kidney disease, or end stage renal disease; R78.81 Bacteremia; E87.1 Hypo-osmolality and hyponatremia; E27.1 Primary adrenocortical insufficiency; T86.12 Kidney transplant failure; G40.909 Epilepsy, unspecified, not intractable, without status epilepticus; E83.39 Other disorders of phosphorus metabolism; K21.9 Gastro-esophageal reflux disease without esophagitis; I27.20 Pulmonary hypertension, unspecified; D63.1 Anemia in chronic kidney disease; B96.20 Unspecified Escherichia coli [E. coli] as the cause of diseases classified elsewhere; E53.8 Deficiency of other specified B group vitamins; B95.61 Methicillin susceptible Staphylococcus aureus infection as the cause of diseases classified elsewhere; F42.9 Obsessive-compulsive disorder, unspecified; E83.52 Hypercalcemia; F50.89 Other specified eating disorder; G62.0 Drug-induced polyneuropathy; F12.188 Cannabis abuse with other cannabis-induced disorder; K31.89 Other diseases of stomach and duodenum; R11.15 Cyclical vomiting syndrome unrelated to migraine; F42.4 Excoriation (skin-picking) disorder; Y83.1 Surgical operation with implant of artificial internal device as the cause of abnormal reaction of the patient, or of later complication, without mention of misadventure at the time of the procedure; B95.2 Enterococcus as the cause of diseases classified elsewhere; F11.10 Opioid abuse, uncomplicated; Z91.118 Patient's noncompliance with dietary regimen for other reason; I16.0 Hypertensive urgency; D50.0 Iron deficiency anemia secondary to blood loss (chronic); K59.03 Drug induced constipation; T40.2X5A Adverse effect of other opioids, initial encounter; Z99.2 Dependence on renal dialysis; Z88.8 Allergy status to other drugs, medicaments and biological substances; Z87.820 Personal history of traumatic brain injury; Z79.899 Other long term (current) drug therapy

== ENCOUNTER → 2023-12-24 | Outpatient (CLI) | payer MEDICARE, MEDICAID ==
[~2023-12-24] MED LIST changes: +B-1100TA2 PO
[2023-12-24 12:53] LABS: BASO % 0.5 % (0.0-1.0); HEMATOCRIT 25.4 % (42.0-52.0); HEMOGLOBIN 8.1 g/dl (13.5-17.5); LYMPH # 1.2 10^3/uL (1.5-5.0); LYMPH % 18.7 % (24.0-44.0); MEAN CORPUSCULAR HEMOGLOBIN 26.2 pg (27.0-33.0); MEAN CORPUSCULAR HGB CONC 31.9 g/dl (32.0-36.5); MEAN CORPUSCULAR VOLUME 82.2 fl (80.0-96.0); MONO # 0.6 10^3/uL (0.0-0.8); MONO % 9.2 % (2.0-8.0); NEUTROPHILS # 4.5 10^3/uL (1.5-8.5); NEUTROPHILS % 71.1 % (36.0-66.0); PLATELET COUNT, AUTOMATED 251 10^3/uL (150-450); RED BLOOD COUNT 3.09 10^6/uL (4.30-6.10); WHITE BLOOD COUNT 6.4 10^3/uL (4.0-10.0)
[2023-12-24 12:59] LABS: ERYTHROCYTE SEDIMENTATION RATE 69 mm/hr (0-15)
[2023-12-24 13:14] LABS: C REACTIVE PROTEIN QUANTITATIV 5.1 MG/DL (<1.0)
[2023-12-24 13:17] LABS: BILIRUBIN,TOTAL 0.4 MG/DL (0.3-1.2); CALCIUM LEVEL 10.9 MG/DL (8.5-10.1); CREATININE FOR GFR 6.93 MG/DL (0.70-1.30); GLOMERULAR FILTRATION RATE 9.3 (>60); POTASSIUM SERUM 4.7 MMOL/L (3.5-5.1); TOTAL PROTEIN 6.5 G/DL (5.7-8.2)
== END ==
LOC: M PLALAB 11:04
PROVIDERS: ATTEND Internal Medicine Infectious Disease
DX: I33.0 Acute and subacute infective endocarditis (principal)

== ENCOUNTER → 2024-02-06 | Outpatient (REF) | payer MEDICARE, MEDICAID ==
[~2024-02-06] MED LIST changes: +B-1100TA2 PO; +LIDO5TD TD; +RISATAB3 PO
[2024-02-06 13:59] LABS: BASO # 0.1 10^3/uL (0.0-0.2); BASO % 0.8 % (0.0-1.0); EOS % 0.3 % (0.0-3.0); HEMATOCRIT 39.8 % (42.0-52.0); HEMOGLOBIN 12.6 g/dl (13.5-17.5); LYMPH # 1.2 10^3/uL (1.5-5.0); LYMPH % 17.8 % (24.0-44.0); MEAN CORPUSCULAR HEMOGLOBIN 28.1 pg (27.0-33.0); MEAN CORPUSCULAR HGB CONC 31.7 g/dl (32.0-36.5); MEAN CORPUSCULAR VOLUME 88.8 fl (80.0-96.0); MONO # 0.7 10^3/uL (0.0-0.8); MONO % 10.2 % (2.0-8.0); NEUTROPHILS # 4.6 10^3/uL (1.5-8.5); NEUTROPHILS % 70.7 % (36.0-66.0); PLATELET COUNT, AUTOMATED 329 10^3/uL (150-450); RED BLOOD COUNT 4.48 10^6/uL (4.30-6.10); WHITE BLOOD COUNT 6.6 10^3/uL (4.0-10.0)
[2024-02-06 14:22] LABS: C REACTIVE PROTEIN QUANTITATIV 1.96 MG/DL (<1.0)
[2024-02-06 14:23] LABS: CALCIUM LEVEL 10.4 MG/DL (8.5-10.1); CREATININE FOR GFR 6.67 MG/DL (0.70-1.30); GLOMERULAR FILTRATION RATE 9.7 (>60); POTASSIUM SERUM 5.5 MMOL/L (3.5-5.1)
[2024-02-06 14:34] LABS: PROCALCITONIN 0.58 ng/ml
== END ==
LOC: M SFHCADAM 09:31
PROVIDERS: ATTEND Family Medicine
DX: F42.4 Excoriation (skin-picking) disorder (principal); R78.81 Bacteremia; A49.8 Other bacterial infections of unspecified site

== ENCOUNTER → 2024-02-18 | Outpatient (CLI) | payer MEDICARE, MEDICAID ==
[2024-02-18 16:20] LABS: BASO # 0.1 10^3/uL (0.0-0.2); BASO % 0.9 % (0.0-1.0); HEMATOCRIT 47.1 % (42.0-52.0); HEMOGLOBIN 15.3 g/dl (13.5-17.5); LYMPH % 18.8 % (24.0-44.0); MEAN CORPUSCULAR HEMOGLOBIN 28.2 pg (27.0-33.0); MEAN CORPUSCULAR HGB CONC 32.5 g/dl (32.0-36.5); MEAN CORPUSCULAR VOLUME 86.9 fl (80.0-96.0); MONO # 0.8 10^3/uL (0.0-0.8); MONO % 14.1 % (2.0-8.0); NEUTROPHILS # 3.5 10^3/uL (1.5-8.5); PLATELET COUNT, AUTOMATED 262 10^3/uL (150-450); RED BLOOD COUNT 5.42 10^6/uL (4.30-6.10); WHITE BLOOD COUNT 5.3 10^3/uL (4.0-10.0)
[2024-02-18 16:49] LABS: C REACTIVE PROTEIN QUANTITATIV 2.92 MG/DL (<1.0); CALCIUM LEVEL 10.8 MG/DL (8.5-10.1); CREATININE FOR GFR 3.96 MG/DL (0.70-1.30); GLOMERULAR FILTRATION RATE 17.7 (>60); POTASSIUM SERUM 4.4 MMOL/L (3.5-5.1)
[2024-02-18 17:01] LABS: PROCALCITONIN 0.43 ng/ml
== END ==
LOC: M WUC 11:04
PROVIDERS: ATTEND Family Medicine
DX: F42.4 Excoriation (skin-picking) disorder (principal); R78.81 Bacteremia; A49.8 Other bacterial infections of unspecified site

== ENCOUNTER → 2024-02-21 | Outpatient (REF) | payer MEDICARE, MEDICAID | LOC: M SFHCADAM 10:58 | PROVIDERS: ATTEND Internal Medicine Infectious Disease | DX: A49.8 Other bacterial infections of unspecified site (principal) ==

== ENCOUNTER 2024-03-13 23:36 | Emergency (ER) | payer MEDICARE, MEDICAID ==
[2024-03-14 00:07] LABS: VENOUS BASE EXCESS -11.8 (-2.0-2.0); VENOUS HCO3 12.4 MMOL/L (23.0-27.0); VENOUS O2 SATURATION 92.4 % (60.0-80.0); VENOUS PARTIAL PRESSURE CO2 24.3 mmHg (38.0-50.0); VENOUS PARTIAL PRESSURE O2 73.4 mmHg (30.0-50.0); VENOUS PH 7.327 UNITS (7.330-7.430); VENOUS STANDARD HCO3 15.2 MMOL/L; VENOUS TOTAL CO2 13.2 MMOL/L (24.0-28.0)
[2024-03-14 00:34] LABS: AMYLASE 52 U/L (30-118)
[2024-03-14 00:38] LABS: BASO % 0.4 % (0.0-1.0); HEMATOCRIT 33.3 % (42.0-52.0); HEMOGLOBIN 11.2 g/dl (13.5-17.5); LYMPH # 0.3 10^3/uL (1.5-5.0); MEAN CORPUSCULAR HEMOGLOBIN 27.7 pg (27.0-33.0); MEAN CORPUSCULAR HGB CONC 33.6 g/dl (32.0-36.5); MEAN CORPUSCULAR VOLUME 82.2 fl (80.0-96.0); MONO # 0.9 10^3/uL (0.0-0.8); MONO % 8.8 % (2.0-8.0); NEUTROPHILS % 86.3 % (36.0-66.0); PLATELET COUNT, AUTOMATED 139 10^3/uL (150-450); RED BLOOD COUNT 4.05 10^6/uL (4.30-6.10); WHITE BLOOD COUNT 10.4 10^3/uL (4.0-10.0)
[2024-03-14] MEDS: ACETAMINOPHEN *IV* 1,000 MG in IV 1 EA IV ONE (00:38)
[2024-03-14 00:51] LABS: INR 1.38; PARTIAL THROMBOPLASTIN TIME 34.6 SECONDS (24.8-34.2); PROTHROMBIN TIME 17.2 SECONDS (12.5-14.5)
[2024-03-14 01:22] LABS: ALBUMIN 2.7 G/DL (3.2-5.2); ALKALINE PHOSPHATASE 114 U/L (40-129); ALT/SGPT 11 U/L (7.0-40); AST/SGOT 26 U/L (<34); BILIRUBIN,DIRECT 0.2 MG/DL (<0.4); BILIRUBIN,TOTAL 0.2 MG/DL (0.3-1.2); BLOOD UREA NITROGEN 120 MG/DL (9-23); C REACTIVE PROTEIN QUANTITATIV 32.99 MG/DL (<1.0); CALCIUM LEVEL 9.8 MG/DL (8.5-10.1); CARBON DIOXIDE LEVEL 13 MMOL/L (20-31); CHLORIDE LEVEL 91 MMOL/L (98-107); CK-MB VALUE MASS < 1.0 NG/ML (<3.6); CPK CREATINE PHOSPHOKINASE 250 U/L (46-171); CREATININE FOR GFR 16.12 MG/DL (0.70-1.30); GLOMERULAR FILTRATION RATE 3.5 (>60); GLUCOSE, FASTING 119 MG/DL (60-100); POTASSIUM SERUM 6.3 MMOL/L (3.5-5.1); SODIUM LEVEL 130 MMOL/L (136-145); TOTAL PROTEIN 6.4 G/DL (5.7-8.2)
[2024-03-14] MEDS: DEXTROSE 50% 50ML SYRINGE IV ONE (01:57)
[2024-03-14] MEDS: HumuLIN R (REGULAR) INSULIN (NovoLIN R) **100U/ML** PER UNIT IV ONE (01:58)
[2024-03-14] MEDS: CALCIUM GLUCONATE 1,000MG/10ML VIAL (100MG/ML) IV ONE (01:58)
[2024-03-14] MEDS: CEFEPIME HCL 2 GM in DEXTROSE 5% (D5W) ADV/MINI-BAG 50 ML IV ONE (02:00)
[2024-03-14 02:35] VITALS: BP 80/44; TEMP 99.3; O2SAT 94
[2024-03-14] MEDS: PATIROMER SORBITEX CALCIUM 8.4 GM POWDER PACKET (VELTASSA) PO ONE (02:40)
[2024-03-14] MEDS: NS 500 ML IV ONE (02:40)
== END 2024-03-14 02:37 | disposition short-term general hospital (02) ==
LOC: M ED 23:36 → EDBD 23:36 → M ED 03-14 02:37
DX: I62.00 Nontraumatic subdural hemorrhage, unspecified (principal); A41.9 Sepsis, unspecified organism; T82.524A Displacement of infusion catheter, initial encounter; I12.0 Hypertensive chronic kidney disease with stage 5 chronic kidney disease or end stage renal disease; K21.9 Gastro-esophageal reflux disease without esophagitis; Z99.2 Dependence on renal dialysis; Z79.899 Other long term (current) drug therapy; Z88.8 Allergy status to other drugs, medicaments and biological substances
CPT/HCPCS: 70450; 71045; 80047; 80048; 80076; 82140; 82150; 82550; 82553; 82803; 83605; 84145; 84484; 85025; 85610; 85730; 86140; 86850; 86900; 86901; 87040; 87077; 87154; 87186; 87486; 87581; 87633; 87798; 93005; 93041; 94760; 96365; 96367; 96375; 99285; J0131; J0612; J0692; J1815

== ENCOUNTER → 2024-09-17 | Outpatient (CLI) | payer MEDICARE, MEDICAID ==
[~2024-09-17] MED LIST changes: +ACET-1515 PO; -ACET650T15 PO; -AMBI10TA PO; +AMLO-751 PO; -AMLO10TA PO; +DEPA250T PO; -DEPA250T2 PO; +DOXY-442 PO; -DOXY100C82 PO; -EQL50TAB2 PO; +FLUV100T20 PO; -FLUV100T25 PO; -PRED50TA PO; +PRED50TA57 PO; +VITA1TAB82 PO; +ZOLP-533 PO
== END ==
LOC: M LAB 16:09
PROVIDERS: ATTEND Internal Medicine Cardiovascular Disease
DX: I33.0 Acute and subacute infective endocarditis (principal)

== ENCOUNTER → 2024-10-05 | Outpatient (REF) | payer MEDICARE, MEDICAID ==
[~2024-10-05] MED LIST changes: +BACTDSTA PO; +BUDE10.2 INH; +CARV6.25 PO; +CLON0.2T PO; +ELIQ5TAB PO; +ERGO500029 PO; +FERR32TA PO
== END ==
LOC: M SFHCCLAY 10:43
PROVIDERS: ATTEND Family Medicine
DX: Z53.9 Procedure and treatment not carried out, unspecified reason (principal); R78.81 Bacteremia

== ENCOUNTER 2024-11-18 21:03 | Emergency (ER) | payer MEDICARE, MEDICAID ==
[~2024-11-18] VITALS: Ht 182.9 cm; Wt 77.3 kg
[~2024-11-18 21:03] MED LIST changes: -VITA100T14 PO; +VITA100T69 PO
[2024-11-18] MEDS ORDERED: AMOX500C PO (21:45)
[2024-11-18] MEDS ORDERED: MEMA1TAB3 PO (21:45)
[2024-11-18] MEDS ORDERED: SENN1TAB96 PO (21:45)
[2024-11-18] MEDS ORDERED: HYDR50TA46 PO (21:45)
[2024-11-18 21:58] LABS: VENOUS BASE EXCESS 7.0 (-2.0-2.0); VENOUS HCO3 29.6 MMOL/L (23.0-27.0); VENOUS O2 SATURATION 97.5 % (60.0-80.0); VENOUS PARTIAL PRESSURE CO2 34.7 mmHg (38.0-50.0); VENOUS PARTIAL PRESSURE O2 100.3 mmHg (30.0-50.0); VENOUS PH 7.549 UNITS (7.330-7.430); VENOUS STANDARD HCO3 30.8 MMOL/L; VENOUS TOTAL CO2 30.7 MMOL/L (24.0-28.0)
[2024-11-18] MEDS: ACETAMINOPHEN *IV* 1,000 MG in IV 1 EA IV ONE (22:02)
[2024-11-18 22:23] LABS: BASO # 0.0 10^3/uL (0.0-0.2); BASO % 0.2 % (0.0-1.0); EOS # 0.0 10^3/uL (0.0-0.5); EOS % 0.2 % (0.0-3.0); LYMPH # 0.4 10^3/uL (1.5-5.0); LYMPH % 6.9 % (24.0-44.0); MONO # 0.1 10^3/uL (0.0-0.8); MONO % 1.6 % (2.0-8.0); NEUTROPHILS # 5.7 10^3/uL (1.5-8.5); NEUTROPHILS % 90.8 % (36.0-66.0); PLATELET COUNT, AUTOMATED 245 10^3/uL (150-450)
[2024-11-18] MEDS ORDERED: VANC1PIG IV (22:24)
[2024-11-18] MEDS ORDERED: NACCAP PO (22:25)
[2024-11-18 22:29] LABS: C REACTIVE PROTEIN QUANTITATIV 4.04 MG/DL (<1.0)
[2024-11-18] MEDS ORDERED: HOME MED LIST COMPLETE! XX SCH (22:30)
[2024-11-18 22:37] LABS: ALT/SGPT 13.0 U/L (7.0-40); AST/SGOT 38.0 U/L (<34); CALCIUM LEVEL 8.4 MG/DL (8.5-10.1); CARBON DIOXIDE LEVEL 27.0 MMOL/L (20-31); CHLORIDE LEVEL 97.0 MMOL/L (98-107); CREATININE FOR GFR 2.7 MG/DL (0.70-1.30); GLOMERULAR FILTRATION RATE 28.9 (>60); POTASSIUM SERUM 4.4 MMOL/L (3.5-5.1); SODIUM LEVEL 133.0 MMOL/L (136-145)
[2024-11-18 23:55] LABS: INR 1.25
[2024-11-19] MEDS: KETOROLAC 30 MG/ML 1 ML VIAL IV ONE (00:37)
[2024-11-19] MEDS ORDERED: MOM 30 ML SUSPENSION UDC PO PRN (02:15)
[2024-11-19] MEDS ORDERED: MAALOX 30 ML SUSP *UDC PO PRN (02:15)
[2024-11-19] MEDS ORDERED: CEFEPIME HCL 2 GM in DEXTROSE 5% (D5W) ADV/MINI-BAG 50 ML IV SCH (02:15)
[2024-11-19] MEDS ORDERED: ACETAMINOPHEN 325 MG TAB PO PRN (02:15)
[2024-11-19] MEDS: CEFEPIME HCL 1 GM in DEXTROSE 5% (D5W) ADV/MINI-BAG 50 ML IV SCH (04:33)
[2024-11-19] MEDS ORDERED: ACETAMINOPHEN *IV* 1,000 MG in IV 1 EA IV PRN (05:15)
[2024-11-19 07:43] LABS: PLATELET COUNT, AUTOMATED 183 10^3/uL (150-450)
[2024-11-19] MEDS ORDERED: PIPERACILLIN/TAZOBACTAM SOD 3.375 GM in DEXTROSE 5% (D5W) ADV/MINI-BAG 50 ML IV SCH (07:45)
[2024-11-19 08:18] LABS: ALT/SGPT 12.0 U/L (7.0-40); AST/SGOT 41.0 U/L (<34); CALCIUM LEVEL 8.1 MG/DL (8.5-10.1); CARBON DIOXIDE LEVEL 26.0 MMOL/L (20-31); CHLORIDE LEVEL 98.0 MMOL/L (98-107); CREATININE FOR GFR 3.38 MG/DL (0.70-1.30); GLOMERULAR FILTRATION RATE 22.1 (>60); POTASSIUM SERUM 4.7 MMOL/L (3.5-5.1); SODIUM LEVEL 134.0 MMOL/L (136-145)
[2024-11-19] MEDS: DOXYCYCLINE HYCLATE 100 MG TABLET PO SCH (08:27)
[2024-11-19] MEDS: PANTOPRAZOLE 40MG VIAL IV SCH (08:27)
[2024-11-19] MEDS: PIPERACILLIN/TAZOBACTAM SOD 4.5 GM in DEXTROSE 5% (D5W) ADV/MINI-BAG 50 ML IV SCH (08:27)
[2024-11-19] MEDS: DOCUSATE SODIUM 100 MG CAPSULE PO SCH (08:27)
[2024-11-19] MEDS: THIAMINE 100 MG TAB PO SCH (08:28)
[2024-11-19] MEDS: APIXABAN 5 MG TAB PO SCH (08:28)
[2024-11-19 08:29] VITALS: BP 109/63
[2024-11-19] MEDS: **hydrALAZINE** 50 MG TAB PO SCH (08:29)
[2024-11-19] MEDS ORDERED: ACETYLCYSTEINE 20% 30 ML VIAL PO SCH (09:00)
[2024-11-19] MEDS: SYMBICORT 160/4.5MCG INHALER 6GM INH SCH (09:02)
[2024-11-19] MEDS: MEMANTINE 5 MG TABLET PO SCH (09:13)
[2024-11-19] MEDS: SEVELAMER *CARBONate* 800 MG TAB PO SCH (09:14)
[2024-11-19] MEDS: FERROUS GLUCONATE 324 MG TAB PO SCH (09:20)
[2024-11-19] MEDS: PYRIDOXINE 50 MG TAB PO SCH (09:22)
[2024-11-19 15:15] VITALS: BP 108/59
[2024-11-19 15:30] VITALS: TEMP 98.3; O2SAT 98
[2024-11-19] MEDS ORDERED: ACETYLCYSTEINE 600 MG PO SCH (21:00)
== END 2024-11-19 15:41 | disposition short-term general hospital (02) ==
LOC: M ED 21:03
DX: A41.9 Sepsis, unspecified organism (principal); R50.9 Fever, unspecified; R18.8 Other ascites; R16.2 Hepatomegaly with splenomegaly, not elsewhere classified; I51.7 Cardiomegaly; K76.0 Fatty (change of) liver, not elsewhere classified; J18.1 Lobar pneumonia, unspecified organism; Q25.46 Tortuous aortic arch; I10 Essential (primary) hypertension; K21.9 Gastro-esophageal reflux disease without esophagitis; K58.9 Irritable bowel syndrome, unspecified; F41.9 Anxiety disorder, unspecified; F32.A Depression, unspecified; D64.9 Anemia, unspecified; N18.6 End stage renal disease; Z99.2 Dependence on renal dialysis; Z86.14 Personal history of Methicillin resistant Staphylococcus aureus infection; Z94.0 Kidney transplant status; Z86.73 Personal history of transient ischemic attack (TIA), and cerebral infarction without residual deficits; Z98.61 Coronary angioplasty status; Z86.2 Personal history of diseases of the blood and blood-forming organs and certain disorders involving the immune mechanism; Z86.19 Personal history of other infectious and parasitic diseases; Z79.01 Long term (current) use of anticoagulants; Z79.899 Other long term (current) drug therapy; Z88.8 Allergy status to other drugs, medicaments and biological substances
CPT/HCPCS: 71045; 71250; 74176; 80047; 80048; 80053; 80076; 82150; 82803; 83605; 84145; 85025; 85027; 85610; 85730; 86140; 86850; 86900; 86901; 87040; 87486; 87581; 87633; 87798; 93005; 93041; 93306; 94640; 94664; 94760; 96365; 96367; 96375; 99285; J0131; J0692; J1885; J2470; J2543

== ENCOUNTER 2024-12-06 17:26 | Inpatient (IN) | payer MEDICARE, MEDICAID ==
[~2024-12-06] VITALS: Ht 182.9 cm; Wt 75.0 kg
[~2024-12-06 17:26] MED LIST changes: +AMOX500C PO; +MEMA1TAB3 PO; +NACCAP PO; +SENN1TAB96 PO; +VANC1PIG IV
[2024-12-06 18:18] LABS: VENOUS BASE EXCESS 5.7 (-2.0-2.0); VENOUS HCO3 28.0 MMOL/L (23.0-27.0); VENOUS O2 SATURATION 98.6 % (60.0-80.0); VENOUS PARTIAL PRESSURE CO2 32.2 mmHg (38.0-50.0); VENOUS PARTIAL PRESSURE O2 115.0 mmHg (30.0-50.0); VENOUS PH 7.557 UNITS (7.330-7.430); VENOUS STANDARD HCO3 29.7 MMOL/L; VENOUS TOTAL CO2 29.0 MMOL/L (24.0-28.0)
[2024-12-06] MEDS: ACETAMINOPHEN 500 MG TAB PO ONE (18:20)
[2024-12-06 18:26] LABS: BASO # 0.0 10^3/uL (0.0-0.2); BASO % 0.3 % (0.0-1.0); EOS # 0.0 10^3/uL (0.0-0.5); EOS % 0.3 % (0.0-3.0); LYMPH # 0.6 10^3/uL (1.5-5.0); LYMPH % 6.5 % (24.0-44.0); MONO # 0.5 10^3/uL (0.0-0.8); MONO % 5.6 % (2.0-8.0); NEUTROPHILS # 7.8 10^3/uL (1.5-8.5); NEUTROPHILS % 87.1 % (36.0-66.0); PLATELET COUNT, AUTOMATED 206 10^3/uL (150-450)
[2024-12-06 19:54] LABS: CK-MB VALUE MASS < 1.0 NG/ML (<3.6)
[2024-12-06 19:55] LABS: CPK CREATINE PHOSPHOKINASE 48 U/L (46-171)
[2024-12-06 19:58] LABS: FREE T4 1.18 NG/DL (0.89-1.76)
[2024-12-06] MEDS: PIPERACILLIN/TAZOBACTAM SOD 4.5 GM in DEXTROSE 5% (D5W) ADV/MINI-BAG 50 ML IV ONE (20:00)
[2024-12-06 20:03] LABS: ALT/SGPT 10 U/L (7.0-40); AST/SGOT 18 U/L (<34); CALCIUM LEVEL 9.1 MG/DL (8.5-10.1); CARBON DIOXIDE LEVEL 26 MMOL/L (20-31); CHLORIDE LEVEL 98 MMOL/L (98-107); CREATININE FOR GFR 5.36 MG/DL (0.70-1.30); GLOMERULAR FILTRATION RATE 12.7 (>60); SODIUM LEVEL 136 MMOL/L (136-145)
[2024-12-06 20:06] LABS: POTASSIUM SERUM 6.5 MMOL/L (3.5-5.1)
[2024-12-06] MEDS: CALCIUM GLUCONATE 1,000 MG in DEXTROSE 5% (D5W) MINI-BAG PLU 100 ML IV ONE (20:15)
[2024-12-06] MEDS: DEXTROSE 50% 50 ML SYRINGE IV STA ×3 (20:15→23:46)
[2024-12-06] MEDS: HumuLIN R (REGULAR) INSULIN (NovoLIN R) **100 U/ML** PER UNIT IV ONE (21:08)
[2024-12-06] MEDS: IBUPROFEN 600 MG TAB PO ONE (21:53)
[2024-12-06] MEDS: VANCOMYCIN HCL 1,000 MG, VIAL MATE ADAPTER 1 EACH in NS 250 ML IV ONE (22:37)
[2024-12-07] VITALS (25 sets, daily range): BP systolic 91–172; BP diastolic 52–85; TEMP 94.8–102; O2SAT 92–100
[2024-12-07] MEDS ORDERED: PIPERACILLIN/TAZOBACTAM SOD 3.375 GM in DEXTROSE 5% (D5W) ADV/MINI-BAG 50 ML IV SCH (02:00)
[2024-12-07] MEDS: MIDODRINE 5 MG TAB PO ONE (02:23)
[2024-12-07] MEDS ORDERED: NOREPINEPHRINE 4 MG IN D5W 250 ML IVBAG (16 MCG/ML) As Ordered ONE (02:57)
[2024-12-07] MEDS: NS 500 ML IV ONE ×2 (03:00→11:15)
[2024-12-07] MEDS: NOREPINEPHRINE 4MG IN D5 250ML 4 MG in IV 1 EA IV SCH (03:00)
[2024-12-07] MEDS ORDERED: CINA30TA5 PO (03:44)
[2024-12-07] MEDS: D5W/LR 1,000 ML IV SCH (03:44)
[2024-12-07] MEDS ORDERED: HOME MED LIST COMPLETE! XX SCH (03:45)
[2024-12-07] MEDS: PIPERACILLIN/TAZOBACTAM SOD 2.25 GM in DEXTROSE 5% (D5W) ADV/MINI-BAG 50 ML IV SCH (05:34)
[2024-12-07 05:45] LABS: PLATELET COUNT, AUTOMATED 184 10^3/uL (150-450)
[2024-12-07 06:13] LABS: CALCIUM LEVEL 8.6 MG/DL (8.5-10.1); CARBON DIOXIDE LEVEL 25.0 MMOL/L (20-31); CHLORIDE LEVEL 96.0 MMOL/L (98-107); CREATININE FOR GFR 5.63 MG/DL (0.70-1.30); GLOMERULAR FILTRATION RATE 12.0 (>60); MAGNESIUM LEVEL 1.8 MG/DL (1.8-2.4); POTASSIUM SERUM 5.9 MMOL/L (3.5-5.1); SODIUM LEVEL 134.0 MMOL/L (136-145)
[2024-12-07] MEDS ORDERED: SODIUM CHLORIDE 0.9% 1000 ML IV PRN (06:55)
[2024-12-07] MEDS ORDERED: HEPARIN 1,000 UNITS/ML 10 ML VIAL (FOR RADIOLOGY & DIALYSIS ONLY) IV PRN (06:55)
[2024-12-07] MEDS: SYMBICORT 160/4.5MCG INHALER 6GM INH SCH (08:00)
[2024-12-07] MEDS: PANTOPRAZOLE 40MG VIAL IV SCH (08:37)
[2024-12-07] MEDS: CEFEPIME HCL 1 GM in DEXTROSE 5% (D5W) ADV/MINI-BAG 50 ML IV ONE (08:37)
[2024-12-07 08:53] LABS: INR 1.52
[2024-12-07] MEDS: THIAMINE 100 MG TAB PO SCH (09:00)
[2024-12-07] MEDS: PATIROMER SORBITEX CALCIUM 8.4GM POWDER PACKET PO ONE (11:22)
[2024-12-07] MEDS: SEVELAMER *CARBONate* 800 MG TAB PO SCH (12:30)
[2024-12-07] MEDS: FERROUS GLUCONATE 324 MG TAB PO SCH (13:21)
[2024-12-07] MEDS: HEPARIN 1,000 UNITS/ML 10 ML VIAL (FOR RADIOLOGY & DIALYSIS ONLY) XX SCH (14:33)
[2024-12-07] MEDS: CEFEPIME HCL 1 GM in DEXTROSE 5% (D5W) ADV/MINI-BAG 50 ML IV SCH (18:11)
[2024-12-07] MEDS: ACETAMINOPHEN *IV* 1,000 MG in IV 1 EA IV ONE (18:11)
[2024-12-07] MEDS: diphenhydrAMINE 50 MG/ML VIAL IV ONE (23:43)
[2024-12-08] VITALS: BP 110/81; TEMP 97.9; O2SAT 99
[2024-12-08] MEDS ORDERED: ACETAMINOPHEN 325 MG TAB PO PRN (00:01)
[2024-12-08 04:00] VITALS: BP 126/73; TEMP 98.4; O2SAT 100
[2024-12-08 05:21] LABS: PLATELET COUNT, AUTOMATED 164 10^3/uL (150-450)
[2024-12-08 05:41] LABS: ALT/SGPT < 9 U/L (7.0-40); AST/SGOT 24 U/L (<34); CALCIUM LEVEL 9.2 MG/DL (8.5-10.1); CARBON DIOXIDE LEVEL 24 MMOL/L (20-31); CHLORIDE LEVEL 98 MMOL/L (98-107); CREATININE FOR GFR 4.00 MG/DL (0.70-1.30); GLOMERULAR FILTRATION RATE 18.0 (>60); POTASSIUM SERUM 4.8 MMOL/L (3.5-5.1); SODIUM LEVEL 135 MMOL/L (136-145)
[2024-12-08 08:00] VITALS: BP 136/64; TEMP 98; O2SAT 97
[2024-12-08 09:53] LABS: ASCITES FL COLOR YELLOW (COLORLESS); SOURCE, BODY FLUID ASCITES
[2024-12-08 09:54] LABS: APPEARANCE, BODY FLUID HAZY (CLEAR)
[2024-12-08] MEDS ORDERED: ENOXAPARIN 80 MG/0.8 ML SYRINGE (J1650 PER 10MG) SC SCH (11:00)
[2024-12-08 12:00] VITALS: BP 122/85; TEMP 98.2; O2SAT 97
[2024-12-08] MEDS: APIXABAN 2.5 MG TAB PO SCH (12:40)
[2024-12-08 17:25] VITALS: BP 126/84; TEMP 97.9; O2SAT 99
[2024-12-08 19:55] VITALS: BP 125/84; TEMP 98.6; O2SAT 98
[2024-12-09 03:02] VITALS: BP 153/112; TEMP 98.1; O2SAT 97
[2024-12-09] MEDS ORDERED: SODIUM CHLORIDE 0.9% 1000 ML IV PRN (06:00)
[2024-12-09] MEDS ORDERED: HEPARIN 1,000 UNITS/ML 10 ML VIAL (FOR RADIOLOGY & DIALYSIS ONLY) IV PRN (06:00)
[2024-12-09 06:44] LABS: PLATELET COUNT, AUTOMATED 170 10^3/uL (150-450)
[2024-12-09 07:15] LABS: ALT/SGPT 11.0 U/L (7.0-40); AST/SGOT 20.0 U/L (<34); CALCIUM LEVEL 9.2 MG/DL (8.5-10.1); CARBON DIOXIDE LEVEL 22.0 MMOL/L (20-31); CHLORIDE LEVEL 99.0 MMOL/L (98-107); CREATININE FOR GFR 5.3 MG/DL (0.70-1.30); GLOMERULAR FILTRATION RATE 12.9 (>60); POTASSIUM SERUM 5.3 MMOL/L (3.5-5.1); SODIUM LEVEL 134.0 MMOL/L (136-145)
[2024-12-09] MEDS: PANTOPRAZOLE 40MG TAB PO SCH (08:09)
[2024-12-09 08:44] VITALS: BP 135/93; TEMP 98.1; O2SAT 98
[2024-12-09] MEDS: HEPARIN 1,000 UNITS/ML 10 ML VIAL (FOR RADIOLOGY & DIALYSIS ONLY) XX SCH (09:22)
[2024-12-09 13:03] VITALS: BP 134/80; TEMP 98.1; O2SAT 97
[2024-12-09 20:00] VITALS: BP 141/102; TEMP 97.7; O2SAT 93
[2024-12-10 04:00] VITALS: BP 140/103; TEMP 98.1; O2SAT 96
[2024-12-10 06:11] LABS: PLATELET COUNT, AUTOMATED 179 10^3/uL (150-450)
[2024-12-10 06:46] LABS: ALT/SGPT 10.0 U/L (7.0-40); AST/SGOT 21.0 U/L (<34); CALCIUM LEVEL 8.9 MG/DL (8.5-10.1); CARBON DIOXIDE LEVEL 23.0 MMOL/L (20-31); CHLORIDE LEVEL 100.0 MMOL/L (98-107); CREATININE FOR GFR 3.74 MG/DL (0.70-1.30); GLOMERULAR FILTRATION RATE 19.6 (>60); POTASSIUM SERUM 4.7 MMOL/L (3.5-5.1); SODIUM LEVEL 136.0 MMOL/L (136-145)
[2024-12-10 12:00] VITALS: BP 139/102; TEMP 98.1; O2SAT 97
[2024-12-10 13:13] LABS: IRON (FE) 44.0 UG/DL (65-175); PERCENT SATURATION 19.9 % (19.7-50.0)
[2024-12-10] MEDS: CIPROFLOXACIN 500 MG TABLET PO SCH (17:37)
[2024-12-10] MEDS ORDERED: CIPROFLOXACIN 500 MG TABLET PO SCH (18:00)
[2024-12-10 20:00] VITALS: BP 144/105; TEMP 98.4; O2SAT 98
[2024-12-11 04:00] VITALS: BP 144/106; TEMP 97.9; O2SAT 98
[2024-12-11] MEDS ORDERED: SODIUM CHLORIDE 0.9% 1000 ML IV PRN (07:05)
[2024-12-11] MEDS ORDERED: HEPARIN 1,000 UNITS/ML 10 ML VIAL (FOR RADIOLOGY & DIALYSIS ONLY) IV PRN (07:05)
[2024-12-11 07:20] LABS: PLATELET COUNT, AUTOMATED 224 10^3/uL (150-450)
[2024-12-11 07:52] LABS: ALT/SGPT 11.0 U/L (7.0-40); AST/SGOT 18.0 U/L (<34); CALCIUM LEVEL 9.5 MG/DL (8.5-10.1); CARBON DIOXIDE LEVEL 22.0 MMOL/L (20-31); CHLORIDE LEVEL 100.0 MMOL/L (98-107); CREATININE FOR GFR 5.15 MG/DL (0.70-1.30); GLOMERULAR FILTRATION RATE 13.3 (>60); POTASSIUM SERUM 5.2 MMOL/L (3.5-5.1); SODIUM LEVEL 136.0 MMOL/L (136-145)
[2024-12-11] MEDS: HEPARIN 1,000 UNITS/ML 10 ML VIAL (FOR RADIOLOGY & DIALYSIS ONLY) XX SCH (08:11)
[2024-12-11] MEDS: DARBEPOETIN 200 MCG/0.4 ML *DIALYSIS* SYRINGE IV SCH (08:12)
[2024-12-11] MEDS ORDERED: CIPR500T39 PO (10:52)
[2024-12-11 12:00] VITALS: BP 145/108; TEMP 97.7; O2SAT 99
== END 2024-12-11 18:41 | disposition home or self-care (01) | DRG 314 ==
LOC: M ED 17:26 → M ED INP 23:00 → M ICU 12-07 04:11 → M MSPAV 12-08 17:33
PROVIDERS: ADMIT Student in an Organized Health Care Education/Training Program; ATTEND Internal Medicine Nephrology
PROC: 0W9G3ZZ Drainage of Peritoneal Cavity, Percutaneous Approach (ICD-10-PCS; principal; 2024-12-07)
PROC: 0W9G3ZX Drainage of Peritoneal Cavity, Percutaneous Approach, Diagnostic (ICD-10-PCS; 2024-12-08)
PROC: 5A1D70Z Performance of Urinary Filtration, Intermittent, Less than 6 Hours Per Day (ICD-10-PCS; 2024-12-11)
DX: T82.7XXA Infection and inflammatory reaction due to other cardiac and vascular devices, implants and grafts, initial encounter (principal); N18.6 End stage renal disease; A41.59 Other Gram-negative sepsis; R65.21 Severe sepsis with septic shock; K65.2 Spontaneous bacterial peritonitis; J96.11 Chronic respiratory failure with hypoxia; I13.2 Hypertensive heart and chronic kidney disease with heart failure and with stage 5 chronic kidney disease, or end stage renal disease; I50.32 Chronic diastolic (congestive) heart failure; T86.12 Kidney transplant failure; K76.6 Portal hypertension; R18.8 Other ascites; E27.1 Primary adrenocortical insufficiency; Y83.1 Surgical operation with implant of artificial internal device as the cause of abnormal reaction of the patient, or of later complication, without mention of misadventure at the time of the procedure; K21.9 Gastro-esophageal reflux disease without esophagitis; R41.89 Other symptoms and signs involving cognitive functions and awareness; I48.91 Unspecified atrial fibrillation; B96.89 Other specified bacterial agents as the cause of diseases classified elsewhere; D63.1 Anemia in chronic kidney disease; K58.9 Irritable bowel syndrome, unspecified; F41.9 Anxiety disorder, unspecified; E87.5 Hyperkalemia; F32.A Depression, unspecified; T45.1X5D Adverse effect of antineoplastic and immunosuppressive drugs, subsequent encounter; R68.0 Hypothermia, not associated with low environmental temperature; I86.4 Gastric varices; G62.0 Drug-induced polyneuropathy; Z86.14 Personal history of Methicillin resistant Staphylococcus aureus infection; Z79.01 Long term (current) use of anticoagulants; Z79.899 Other long term (current) drug therapy; Z99.2 Dependence on renal dialysis; Z88.8 Allergy status to other drugs, medicaments and biological substances; Z87.820 Personal history of traumatic brain injury

== ENCOUNTER → 2025-02-17 | Outpatient (CLI) | payer MEDICARE, MEDICAID ==
[~2025-02-17] MED LIST changes: -BACTDSTA PO; +CINA30TA5 PO; +CIPR500T39 PO; -LABE100T6 PO; +LABE100T91 PO; +SULF-8 PO; -VALC450T PO; +VALG450T18 PO
[2025-02-17 15:14] LABS: BASO # 0.1 10^3/uL (0.0-0.2); BASO % 0.9 % (0.0-1.0); EOS # 0.2 10^3/uL (0.0-0.5); EOS % 2.9 % (0.0-3.0); LYMPH # 1.2 10^3/uL (1.5-5.0); LYMPH % 22.1 % (24.0-44.0); MONO # 0.7 10^3/uL (0.0-0.8); MONO % 12.9 % (2.0-8.0); NEUTROPHILS # 3.3 10^3/uL (1.5-8.5); NEUTROPHILS % 61.2 % (36.0-66.0); PLATELET COUNT, AUTOMATED 284 10^3/uL (150-450)
[2025-02-17 15:39] LABS: C REACTIVE PROTEIN QUANTITATIV 2.74 MG/DL (<1.0); CALCIUM LEVEL 10.4 MG/DL (8.5-10.1); CARBON DIOXIDE LEVEL 27.0 MMOL/L (20-31); CHLORIDE LEVEL 95.0 MMOL/L (98-107); CREATININE FOR GFR 4.97 MG/DL (0.70-1.30); GLOMERULAR FILTRATION RATE 13.9 (>60); POTASSIUM SERUM 4.3 MMOL/L (3.5-5.1); SODIUM LEVEL 137.0 MMOL/L (136-145)
== END ==
LOC: M LAB 14:33
PROVIDERS: ATTEND Family Medicine
DX: R78.81 Bacteremia (principal)